=== PATIENT | female | born 1955 | race African-American/Black ===

== ENCOUNTER 2016-12-06 14:46 | Observation (INO) | payer OTHER ==
[2016-12-06 15:14] VITALS: BMI 31.8
[2016-12-06] MEDS ORDERED: OXYCODONE/APAP 5/325MG COMBO TABLET ONE (15:32)
[2016-12-06] MEDS ORDERED: ONDANSETRON *ODT* 4 MG TABLET ONE (15:33)
[2016-12-06] MEDS ORDERED: OXYCODONE/APAP 5/325MG COMBO TABLET PO ONE (15:42)
[2016-12-06] MEDS ORDERED: ONDANSETRON *ODT* 4 MG TABLET SL ONE (15:42)
--- NOTE | 2016-12-06 15:45 | PDOC ---
[id number] No Limitations - History of Present Illness Initial Comments: 12/06/16 15:46 The patient is a 61 year old female, with a significant past medical history of afib, diabetes, HTN, hypercholesterolemia, seizures, migraines, chronic back pain, who presents to the emergency department s/p syncopal episode at 11:00am today. She reports getting out of the shower feeling dizziness and nausea. She reports going back to the bathroom where she blacked out, waking up on the bathroom floor with her bathroom door broken. She has chief complaints of scalp , neck and upper back pain, suspecting she hit her head. She reports after falling she couldnt feel her legs, but was eventually able to ambulate a few minutes after the episode. She denies recent fever, chills, headache and dizziness. She denies recent vomit, diarrhea and constipation. Allergies: As per Nursing Notes. Past surgical history: Appendectomy and TKR (bilateral) Social history: Nonsmoker. PCP: . <Jer Rome - Last Filed: 12/06/16 15:48> <Fab Quinonez - Last Filed: 01/16/17 09:54> - General Chief Complaint: Injury Stated Complaint: FALL Time Seen by Provider: 12/06/16 14:53 Past History <Jer Rome - Last Filed: 12/06/16 15:48> - Past Medical History Cardiac Disorders: Yes (afib) Diabetes: Yes HTN: Yes Hypercholesterolemia: Yes Suicide Attempt (Hx): No Seizures: Yes - Surgical History Abdominal Surgery: Yes (ECTOPIC PREGNANY) Appendectomy: Yes Orthopedic Surgery: Yes (both knee replacement) - Immunization History Immunization Up to Date: Yes - Psycho/Social/Smoking Cessation Hx Anxiety: No Suicidal Ideation: No Smoking Status: No Smoking History: Never smoked Years of Tobacco Use: 10 Number of Cigarettes Smoked Daily: 0 Information on smoking cessation initiated: No Hx Alcohol Use: No Drug/Substance Use Hx: No Substance Use Type: None <Fab Quinonez - Last Filed: 01/16/17 09:54> - Past Medical History Allergies/Adverse Reactions: Allergies Allergy/AdvReac Type Severity Reaction Status Date / Time Iodinated Contrast Media - Allergy Verified 06/22/15 11:51 Oral and IV DYE Allergy Uncoded 06/22/15 10:22 Home Medications: Ambulatory Orders Amlodipine Besylate [Norvasc -] 5 mg PO DAILY 04/11/15 Ezetimibe [Zetia] 10 mg PO DAILY 04/11/15 Gabapentin [Neurontin] 800 mg PO TID 04/11/15 Hydrocodone/Acetaminophen [[place] 10-325 Tablet] 1 each PO DAILY PRN 04/11/15 Phenytoin Na Extended [Dilantin -] 100 mg PO TID 04/11/15 Losartan/Hydrochlorothiazide [Losartan-Hctz 100-25 mg Tablet] 1 each PO DAILY Morphine *Sr* [MS Contin -] 30 mg PO BID tablet.sa 04/15/15 Review of Systems - Review of Systems Able to Perform ROS?: Yes Comments:: 12/06/16 15:46 GENERAL/CONSTITUTIONAL: No fever or chills. No weakness. HEAD, EYES, EARS, NOSE AND THROAT: No change in vision. No ear pain or discharge. No sore throat. CARDIOVASCULAR: No chest pain or shortness of breath. RESPIRATORY: No cough, wheezing, or hemoptysis. GASTROINTESTINAL: No vomiting, diarrhea or constipation. GENITOURINARY: No dysuria, frequency, or change in urination. MUSCULOSKELETAL: Present: back and neck pain. No joint or muscle swelling or pain. SKIN: No rash NEUROLOGIC: Yes: dizziness. No headache, loss of consciousness, or change in strength/sensation. ENDOCRINE: No increased thirst. No abnormal weight change. HEMATOLOGIC/LYMPHATIC: No anemia, easy bleeding, or history of blood clots. ALLERGIC/IMMUNOLOGIC: No hives or skin allergy. <Jer Rome - Last Filed: 12/06/16 15:48> *Physical Exam - Vital Signs Last Vital Signs Temp Pulse Resp BP Pulse Ox 97.8 F 58 L 20 88/64 100 12/06/16 15:12 12/06/16 15:12 12/06/16 15:12 12/06/16 15:12 12/06/16 15:12 - Physical Exam Comments: 12/06/16 15:48 GENERAL: Awake, alert, and fully oriented, in no acute distress HEAD: No signs of trauma EYES: PERRLA, EOMI, sclera anicteric, conjunctiva clear ENT: Auricles normal inspection, hearing grossly normal, nares patent, oropharynx clear without exudates. Moist mucosa NECK: Tenderness to the upper back, high thoracic, lower cervical area and to the base of the skull. No midline bony tenderness.Normal ROM, supple, no lymphadenopathy, JVD, or masses LUNGS: Breath sounds equal, clear to auscultation bilaterally. No wheezes, and no crackles HEART: Regular rate and rhythm, normal S1 and S2, no murmurs, rubs or gallops ABDOMEN: Soft, nontender, normoactive bowel sounds. No guarding, no rebound. No masses EXTREMITIES: Normal range of motion, no edema. No clubbing or cyanosis. No cords, erythema, or tenderness NEUROLOGICAL: Cranial nerves II through XII grossly intact. Normal speech, normal gait SKIN: Warm, Dry, normal turgor, no rashes or lesions noted. <Jer Rome - Last Filed: 12/06/16 15:48> - Vital Signs Last Vital Signs Temp Pulse Resp BP Pulse Ox 97.8 F 58 L 20 88/64 100 12/06/16 15:12 12/06/16 15:12 12/06/16 15:12 12/06/16 15:12 12/06/16 15:12 <Fab Quinonez - Last Filed: 01/16/17 09:54> Heart Score/ECG Review - ECG Impressions Comment:: 12/06/16 15:47 Vent rate 52 bpm ND interval 166 ms QRS duration 82 ms Sinus bradycardia Possible Left atrial enlargement Septal infarct age undetermined Abnormal ECG. <Jer Rome - Last Filed: 12/06/16 15:48> ED Treatment Course - LABORATORY CBC & Chemistry Diagram: 12/08/16 06:10 12/08/16 06:10 - RADIOLOGY Radiology Studies Ordered: Category Date Time Status CERVICAL SPINE CT W/O CONTR [CT] Stat CT Scan 12/06/16 15:[address] WITHOUT CONTRAST [CT] Stat CT Scan 12/06/16 15:[address] W/O CONTRAST [CT] Stat CT Scan 12/06/16 15:31 Ordered CHEST X-RAY PORTABLE* [RAD] Stat Radiology 12/06/16 15:31 Ordered <Fab Quinonez - Last Filed: 01/16/17 09:54> *DC/Admit/Observation/Transfer - Attestations Scribe Attestion: 12/06/16 15:46 Documentation prepared by Jer Rome, acting as medical chief technician for Fab Quinonez DO. <Jer Rome - Last Filed: 12/06/16 15:48> - Attestations Physician Attestion: 12/06/16 15:45 I, Dr. Fab Quinonez, attest that this document has been prepared under my direction and personally reviewed by me in its entirety. I further attest, that it accurately reflects all work, treatment, procedures and medical decision -making performed by me. <Fab Quinonez - Last Filed: 01/16/17 09:54> Diagnosis at time of Disposition: Chest pain Syncope Qualifiers: Encounter type: initial encounter - Referrals
[2016-12-06 15:57] LABS: BASOPHIL 1.4 % (0-2.0); EOSINOPHIL 2.5 % (0-4.5); MCH 31.5 pg (25.7-33.7); MCHC 32.7 g/dl (32.0-36.0); MEAN CELL VOLUME 96.5 fl (80-96); MEAN PLT VOLUME 11.5 fl (7.5-11.1); NEUTROPHILS 73.9 % (42.8-82.8); PLATELET COUNT 229 K/MM3 (134-434); RDW 14.8 % (11.6-15.6); WHITE BLOOD COUNT 8.3 K/mm3 (4.0-10.0)
[2016-12-06 16:21] LABS: ALBUMIN 4.2 g/dl (3.4-5.0); BILIRUBIN,TOTAL 0.5 mg/dL (0.2-1.0); CREATININE 1.4 mg/dL (0.55-1.02); TOT PROT 7.8 g/dl (6.4-8.2)
[2016-12-06 16:22] LABS: INR 1.09 (0.82-1.09)
[2016-12-06 16:23] LABS: TROPONIN I 0.07 ng/ml (0.00-0.05)
--- NOTE | 2016-12-06 19:44 | PDOC ---
*Physical Exam - Vital Signs Last Vital Signs Temp Pulse Resp BP Pulse Ox 98.3 F 72 20 130/80 98 12/06/16 18:41 12/06/16 18:41 12/06/16 18:41 12/06/16 18:41 12/06/16 18:41 ED Treatment Course - LABORATORY CBC & Chemistry Diagram: 12/06/16 15:35 12/06/16 15:35 - ADDITIONAL ORDERS Additional order review: Laboratory Results 12/06/16 12/06/16 12/06/16 15:35 15:35 15:35 INR 1.09 Sodium 141 Potassium 3.7 Chloride 104 Carbon Dioxide 27 Anion Gap 10 BUN 13 D Creatinine 1.4 H D Creat Clearance w eGFR 38.10 Random Glucose 117 H Calcium 10.0 Total Bilirubin 0.5 D AST 9 L D ALT 18 D Alkaline Phosphatase 131 H Creatine Kinase 68 Troponin I 0.07 H Total Protein 7.8 Albumin 4.2 Alcohol, Quantitative < 5.0 12/06/16 15:35 RBC 4.35 D MCV 96.5 H MCHC 32.7 RDW 14.8 D MPV 11.5 H Neutrophils % 73.9 D Lymphocytes % 14.0 D Monocytes % 8.2 Eosinophils % 2.5 Basophils % 1.4 - Medications Given in the ED: ED Medications Discontinued Medications Generic Name Dose Route Start Last Admin Trade Name Karl PRN Reason Stop Dose Admin Ondansetron HCl 4 mg 12/06/16 15:42 12/06/16 15:53 Zofran Odt - SL 12/06/16 15:43 4 mg ONCE ONE Administration Oxycodone/Acetaminophen 1 combo 12/06/16 15:42 12/06/16 15:53 Percocet 5/325 - PO 12/06/16 15:43 1 combo ONCE ONE Administration *DC/Admit/Observation/Transfer Diagnosis at time of Disposition: Chest pain Syncope Qualifiers: Encounter type: initial encounter - Discharge Dispostion Condition at time of disposition: Stable Admit: Yes - Referrals Referrals: Yariel Springer [Primary Care Provider] - - Patient Instructions - Post Discharge Activity
[2016-12-06 21:07] LABS: URINE APPEARANCE SLCLOUDY; URINE BILIRUBIN NEGATIVE (NEGATIVE); URINE BLOOD NEGATIVE (NEGATIVE); URINE COLOR YELLOW; URINE GLUCOSE (UA) NEGATIVE (NEGATIVE); URINE KETONE NEGATIVE (NEGATIVE); URINE NITRITE NEGATIVE (NEGATIVE); URINE UROBILINOGEN NEGATIVE E.U./dl (0.2-1.0)
[2016-12-06 21:23] LABS: URINE MARIJUANA THC NEGATIVE ng/ml (CUTOFF=50)
[2016-12-06 21:45] LABS: URINE LEUK ESTERASE TRACE (NEGATIVE); URINE PROTEIN 1+ (NEGATIVE)
[2016-12-06 21:47] LABS: URINE HYALINE CAST 59 /lpf; URINE MUCUS FEW; URINE RBC 2 /hpf (0-3); URINE WBC 9 /hpf (3-5)
[2016-12-06] MEDS ORDERED: PATIENT'S OWN MEDICATION (NON-FORMULARY) (Gabapentin [Neurontin] 800 MG) PO SCH (22:00)
[2016-12-06] MEDS ORDERED: morphine SO4 SUSTAINED ACTING 15 MG TABLET.SA ONE (22:05)
[2016-12-06] MEDS ORDERED: HEPARIN NA (PORCINE) 5,000 UNITS/ML 1ML VIAL ONE (22:06)
[2016-12-06] MEDS ORDERED: PHENYTOIN NA EXTENDED 100 MG CAPSULE (FP) ONE (22:06)
[2016-12-06] MEDS: HEPARIN NA (PORCINE) 5,000 UNITS/ML 1ML VIAL SQ SCH (22:13)
[2016-12-06] MEDS: PHENYTOIN NA EXTENDED 100 MG CAPSULE (FP) PO SCH (22:13)
[2016-12-06] MEDS: morphine SO4 SUSTAINED ACTING 30 MG TABLET.SA PO SCH (22:13)
[2016-12-06] MEDS: GABAPENTIN 400 MG CAPSULE (FP) PO SCH (22:49)
[2016-12-07] MEDS ORDERED: CYCLOBENZAPRINE HCL 10 MG TABLET (FP) ONE (02:00)
[2016-12-07] MEDS: CYCLOBENZAPRINE HCL 10 MG TABLET (FP) PO PRN (02:03)
[2016-12-07 03:02] LABS: TROPONIN I 0.02 ng/ml (0.00-0.05)
[2016-12-07] MEDS ORDERED: PHENYTOIN NA EXTENDED 100 MG CAPSULE (FP) ONE (06:28)
[2016-12-07] MEDS: PHENYTOIN NA EXTENDED 100 MG CAPSULE (FP) PO SCH ×2 (06:36→21:32)
[2016-12-07] MEDS: GABAPENTIN 400 MG CAPSULE (FP) PO SCH ×2 (06:36→21:32)
[2016-12-07] MEDS ORDERED: EZETIMIBE 10 MG TABLET (FP) PO SCH (10:00)
[2016-12-07] MEDS ORDERED: PATIENT'S OWN MEDICATION (NON-FORMULARY) (Losartan/Hydrochlorothiazide [Losartan-Hctz 100- PO SCH (10:00)
[2016-12-07] MEDS ORDERED: LOSARTAN 50MG/HCTZ 12.5MG 1 TAB (FP) PO SCH (10:00)
[2016-12-07] MEDS: amLODIPine BESYLATE 5 MG TABLET (FP) PO SCH (10:00)
--- NOTE | 2016-12-07 10:07 | CONSULT ---
Consult Consult Specialty:: Neurology - History of Present Illness History of Present Illness: Chart review for patient evaluation pending safe road condition travel noted the patient to be a 12/06/16 15:46 61 year old female, with acute LOC. She has a significant past medical history of afib, diabetes, HTN, hypercholesterolemia, seizures, migraines, chronic back pain. Per the medical record she had reported passing out following a shower, finding herself on the floor with initial leg weakness and subsequently able to ambulate. She reported associated scalp, neck and upper back pain and was evaluated accordingly. Neurological consultation requested for evaluation of syncope. Head CT negative. 12/07/16 1015 EST telephone discussion with treating ED attending who noted the patient reporting lightheadedness but no focal neurological deficits. Per nurse patient complaining of usual back pain (CT of head and Cervical and thoracic spine unremarkable) but usual narcotic pain medication held with systolic pressure in 90's. Pt admitted for evaluation of [place] with 2nd regimen of cardiac enzymes normal, and first slightly elevated. Discussed case with ED physician with neurological follow pending weather conditions. - Alcohol/Substance Use Hx Alcohol Use: No - Smoking History Smoking history: Never smoked Aproximately how many cigarettes per day: 0 Home Medications - Allergies Allergies/Adverse Reactions: Allergies Allergy/AdvReac Type Severity Reaction Status Date / Time Iodinated Contrast Media - Allergy Verified 06/22/15 11:51 Oral and IV DYE Allergy Uncoded 06/22/15 10:22 - Home Medications Home Medications: Ambulatory Orders Amlodipine Besylate [Norvasc -] 5 mg PO DAILY 04/11/15 Ezetimibe [Zetia] 10 mg PO DAILY 04/11/15 Gabapentin [Neurontin] 800 mg PO TID 04/11/15 Hydrocodone/Acetaminophen [[place] 10-325 Tablet] 1 each PO DAILY PRN 04/11/15 Phenytoin Na Extended [Dilantin -] 100 mg PO TID 04/11/15 Zolpidem Tartrate [Ambien] 10 mg PO HS PRN 04/11/15 Acetaminophen/Caffeine/Butalb [Fioricet -] 1 tab PO Q4H PRN 04/14/15 Losartan/Hydrochlorothiazide [Losartan-Hctz 100-25 mg Tablet] 1 each PO DAILY Morphine *Sr* [MS Contin -] 30 mg PO BID tablet.sa 04/15/15 Cephalexin Monohydrate [Keflex -] 500 mg PO Q6H #28 capsule 06/06/15 Cyclobenzaprine HCl [Flexeril -] 5 mg PO TID PRN #30 tablet 06/22/15 Physical Exam Vital Signs: Vital Signs Temperature 98.6 F 12/07/16 07:38 Pulse Rate 52 L 12/07/16 07:38 Respiratory Rate 14 12/07/16 07:38 Blood Pressure 84/50 12/07/16 07:38 O2 Sat by Pulse Oximetry (%) 96 12/07/16 07:38 Assessment/Plan Acute LOC with fall admitted for evaluation of syncope with likely mild head trauma with LOC. Neurological follow up 12/08/15 with telephone follow with ED physician noting normal neuro exam with neg head and cervical/thoracic spine MRI
[2016-12-07 10:15] LABS: BASOPHIL 1.5 % (0-2.0); EOSINOPHIL 4.2 % (0-4.5); MCH 31.8 pg (25.7-33.7); MCHC 32.8 g/dl (32.0-36.0); MEAN PLT VOLUME 10.6 fl (7.5-11.1); NEUTROPHILS 51.9 % (42.8-82.8); PLATELET COUNT 193 K/MM3 (134-434); RDW 14.8 % (11.6-15.6); WHITE BLOOD COUNT 6.5 K/mm3 (4.0-10.0)
[2016-12-07 10:34] LABS: ALBUMIN 3.7 g/dl (3.4-5.0); BILIRUBIN,TOTAL 0.4 mg/dL (0.2-1.0); CALCIUM 8.9 mg/dL (8.5-10.1); CREATININE 2.1 mg/dL (0.55-1.02); TOT PROT 6.7 g/dl (6.4-8.2)
[2016-12-07 10:35] LABS: TROPONIN I 0.02 ng/ml (0.00-0.05)
--- NOTE | 2016-12-07 11:01 | CON.CARD ---
Cardiology Consult (text) - Consultation Consultation Note: Spoke with ER attending (Dr. Canseco) who was taking care of patient before being admitted to [facility] service. Dr. Canseco spoke with patient who states that she sees a female doctor in [facility]'s office. Will notify Dr. Steele to change consult to his group.
--- NOTE | 2016-12-07 11:15 | EKG ---
Test Reason : Blood Pressure : / mmHG Vent. Rate : 052 BPM Atrial Rate : 052 BPM P-R Int : 166 ms QRS Dur : 082 ms QT Int : 546 ms P-R-T Axes : 023 042 011 degrees QTc Int : 507 ms SINUS BRADYCARDIA POSSIBLE LEFT ATRIAL ENLARGEMENT Confirmed by MELL DUARTE MD ([id number]) on 12/07/2016 11:15:16 AM Referred By: Confirmed By:MELL DUARTE MD
--- NOTE | 2016-12-07 12:24 | EKG ---
Test Reason : Blood Pressure : / mmHG Vent. Rate : 051 BPM Atrial Rate : 051 BPM P-R Int : 168 ms QRS Dur : 084 ms QT Int : 522 ms P-R-T Axes : 032 063 025 degrees QTc Int : 481 ms SINUS BRADYCARDIA OTHERWISE NORMAL ECG WHEN COMPARED WITH ECG OF 06-DEC-2016 15:09, CRITERIA FOR SEPTAL INFARCT ARE NO LONGER PRESENT T WAVE INVERSION NO LONGER EVIDENT IN ANTERIOR LEADS Confirmed by FELICIA SKINNER, MELL ([id number]) on 12/07/2016 12:24:10 PM Referred By: LUCIAN MONTES Confirmed By:MELL DUARTE MD
[2016-12-07] MEDS ORDERED: OXYCODONE/APAP 5/325MG COMBO TABLET PO ONE (14:12)
[2016-12-07] MEDS ORDERED: OXYCODONE/APAP 5/325MG COMBO TABLET ONE (14:14)
--- NOTE | 2016-12-07 18:37 | HP ---
Admitting History and Physical - Primary Care Physician PCP: Leela Brennan - Admission Chief Complaint: SYNCOPE LOC History of Present Illness: The patient is a 61 year old female, with a significant past medical history of afib, diabetes, HTN, hypercholesterolemia, seizures, migraines, chronic back pain, who presents to the emergency department s/p syncopal episode at 11:00am today. She reports getting out of the shower feeling dizziness and nausea. She reports going back to the bathroom where she blacked out, waking up on the bathroom floor with her bathroom door broken. She has chief complaints of scalp , neck and upper back pain, suspecting she hit her head. She reports after falling she couldnt feel her legs, but was eventually able to ambulate a few minutes after the episode. She denies recent fever, chills, headache and dizziness. She denies recent vomit, diarrhea and constipation. History Source: Patient - Smoking History Smoking history: Never smoked Aproximately how many cigarettes per day: 0 - Alcohol/Substance Use Hx Alcohol Use: No Home Medications - Allergies Allergies/Adverse Reactions: Allergies Allergy/AdvReac Type Severity Reaction Status Date / Time Iodinated Contrast Media - Allergy Verified 06/22/15 11:51 Oral and IV DYE Allergy Uncoded 06/22/15 10:22 - Home Medications Home Medications: Ambulatory Orders Amlodipine Besylate [Norvasc -] 5 mg PO DAILY 04/11/15 Ezetimibe [Zetia] 10 mg PO DAILY 04/11/15 Gabapentin [Neurontin] 800 mg PO TID 04/11/15 Hydrocodone/Acetaminophen [[place] 10-325 Tablet] 1 each PO DAILY PRN 04/11/15 Phenytoin Na Extended [Dilantin -] 100 mg PO TID 04/11/15 Zolpidem Tartrate [Ambien] 10 mg PO HS PRN 04/11/15 Acetaminophen/Caffeine/Butalb [Fioricet -] 1 tab PO Q4H PRN 04/14/15 Losartan/Hydrochlorothiazide [Losartan-Hctz 100-25 mg Tablet] 1 each PO DAILY Morphine *Sr* [MS Contin -] 30 mg PO BID tablet.sa 04/15/15 Cephalexin Monohydrate [Keflex -] 500 mg PO Q6H #28 capsule 06/06/15 Cyclobenzaprine HCl [Flexeril -] 5 mg PO TID PRN #30 tablet 06/22/15 Review of Systems Findings/Remarks: ASLEEP,COMFORTABLE - Review of Systems Constitutional: reports: No Symptoms Eyes: reports: No Symptoms HENT: reports: No Symptoms Neck: reports: No Symptoms Cardiovascular: reports: No Symptoms Respiratory: reports: No Symptoms Musculoskeletal: reports: No Symptoms Integumentary: reports: No Symptoms Neurological: reports: Syncope, Weakness Endocrine: reports: No Symptoms Physical Examination Vital Signs: Vital Signs Temperature 0 F L 12/07/16 17:59 Pulse Rate 52 L 12/07/16 17:59 Respiratory Rate 16 12/07/16 17:59 Blood Pressure 96/52 12/07/16 17:59 O2 Sat by Pulse Oximetry (%) 95 12/07/16 17:59 Findings/Remarks: ASLEEP/COMFORTABLE Constitutional: Yes: Mild Distress Eyes: Yes: WNL HENT: Yes: WNL Neck: Yes: WNL Cardiovascular: Yes: WNL Respiratory: Yes: WNL Gastrointestinal: Yes: WNL Renal/: Yes: WNL Musculoskeletal: Yes: WNL Extremities: Yes: WNL Edema: Yes Edema: LLE: Trace, RLE: Trace Peripheral Pulses WNL: Yes Integumentary: Yes: WNL Wound/Incision: Yes: Clean/Dry Neurological: Yes: WNL ...Motor Strength: WNL Psychiatric: Yes: WNL Labs: CBC, BMP 12/07/16 10:05 12/07/16 10:05 Imaging - Results Cat Scan: Report Reviewed Assessment/Plan SYNCOPE WORKUP SEIZURE WORKUP NEUROLOGY/CARDIOLOGY WORKUP IN PROGRESS ECHO 2D NORMAL CAROTID DOPPLER NORMAL NO SIGNIFICANT TELEMETRY ALARMS
[2016-12-07] MEDS ORDERED: SODIUM CHLORIDE 1,000 ML IV SCH (18:45)
[2016-12-07] MEDS ORDERED: morphine SO4 SUSTAINED ACTING 15 MG TABLET.SA ONE (21:22)
[2016-12-07] MEDS: morphine SO4 SUSTAINED ACTING 30 MG TABLET.SA PO SCH (21:30)
[2016-12-07] MEDS: HEPARIN NA (PORCINE) 5,000 UNITS/ML 1ML VIAL SQ SCH (21:31)
[2016-12-07] MEDS ORDERED: ZOLPIDEM TARTRATE 5 MG TABLET PO PRN (21:55)
[2016-12-08] MEDS ORDERED: ZOLPIDEM TARTRATE 5 MG TABLET ONE (00:47)
[2016-12-08 05:19] VITALS: TEMP 97.8
[2016-12-08 06:58] LABS: MCH 32.3 pg (25.7-33.7); MCHC 33.3 g/dl (32.0-36.0); MEAN PLT VOLUME 11.4 fl (7.5-11.1); PLATELET COUNT 174 K/MM3 (134-434); RDW 14.9 % (11.6-15.6); WHITE BLOOD COUNT 6.6 K/mm3 (4.0-10.0)
[2016-12-08 07:35] LABS: CREATININE 1.1 mg/dL (0.55-1.02)
[2016-12-08] MEDS: PHENYTOIN NA EXTENDED 100 MG CAPSULE (FP) PO SCH ×2 (07:56→14:31)
[2016-12-08] MEDS: GABAPENTIN 400 MG CAPSULE (FP) PO SCH ×2 (07:56→14:31)
[2016-12-08] MEDS ORDERED: morphine SO4 SUSTAINED ACTING 15 MG TABLET.SA ONE (09:37)
--- NOTE | 2016-12-08 09:41 | CON.CARD ---
Consult Consult Specialty:: Cardiology - History of Present Illness History of Present Illness: 61 year old woman with a history of HTN, HLD, seizure disorder, non-obstructive CAD with mLAD myocardial bridge, prior syncopal episodes thought to be secondary to seizures, admitted with a syncopal event. Pt. states that yesterday while getting ready to go out of her house she walked to the bathroom and that is the last thing she remembers followed by being on the ground with profound generalized weakness and inability to get up. denies knowledge of any preceding symptoms but states that she felt dizzy and very weak when she woke up. denies chest pain at home but did have substernal chest discomfort while in the ER yesterday after drinking some juice. denies palpitations. no sob. no pnd , orthopnea, or LE edema. - History Source History Provided By: Patient, Medical Record Limitations to Obtaining History: No Limitations - Past Medical History YARDAGE ESTIMATOR: Yes: Seizure, Syncope Cardio/Vascular: Yes: CAD, HTN, Hyperlipdemia - Alcohol/Substance Use Hx Alcohol Use: No - Smoking History Smoking history: Never smoked Aproximately how many cigarettes per day: 0 - Social History ADL: Independent History of Recent Travel: No Home Medications - Allergies Allergies/Adverse Reactions: Allergies Allergy/AdvReac Type Severity Reaction Status Date / Time Iodinated Contrast Media - Allergy Verified 06/22/15 11:51 Oral and IV DYE Allergy Uncoded 06/22/15 10:22 - Home Medications Home Medications: Ambulatory Orders Amlodipine Besylate [Norvasc -] 5 mg PO DAILY 04/11/15 Ezetimibe [Zetia] 10 mg PO DAILY 04/11/15 Gabapentin [Neurontin] 800 mg PO TID 04/11/15 Hydrocodone/Acetaminophen [[place] 10-325 Tablet] 1 each PO DAILY PRN 04/11/15 Phenytoin Na Extended [Dilantin -] 100 mg PO TID 04/11/15 Zolpidem Tartrate [Ambien] 10 mg PO HS PRN 04/11/15 Acetaminophen/Caffeine/Butalb [Fioricet -] 1 tab PO Q4H PRN 04/14/15 Losartan/Hydrochlorothiazide [Losartan-Hctz 100-25 mg Tablet] 1 each PO DAILY Morphine *Sr* [MS Contin -] 30 mg PO BID tablet.sa 04/15/15 Cephalexin Monohydrate [Keflex -] 500 mg PO Q6H #28 capsule 06/06/15 Cyclobenzaprine HCl [Flexeril -] 5 mg PO TID PRN #30 tablet 06/22/15 Family Disease History - Family Disease History Family History: Denies Review of Systems - Review of Systems Constitutional: reports: Weakness. denies: No Symptoms, Chills, Diaphoresis, Fever, Lethargy, Loss of Appetite, Malaise, Night Sweats, Unintentional Wgt. Loss, Other Eyes: denies: No Symptoms, Blind Spots, Blurred Vision, Double Vision, Eye Pain , Floaters, Photophobia, Recent Change in Vision, Other HENT: denies: No Symptoms, Difficult Swallowing, Ear Discharge, Ear Pain, Epistaxis, Gingival Bleeding, Hearing Loss, Mouth Swelling, Nasal Congestion, Ocular Prosthesis, Throat Pain, Toothache, Ringing in Ears, Other Neck: denies: No Symptoms, Decreased ROM, Lumps, Pain on Movement, Stiffness, Swollen Glands, Tenderness, Other Cardiovascular: reports: Chest Pain. denies: No Symptoms, Edema, Palpitations, Shortness of Breath, Other Respiratory: denies: No Symptoms, Cough, Exercise Intolerance, Hemoptysis, Orthopnea, PND, Snoring, SOB, SOB on Exertion, Wheezing, Other Gastrointestinal: denies: No Symptoms, Abdominal Pain, Bloating, Constipation, Diarrhea, Dysphagia, Indigestion, Melena, Nausea, Rectal Bleeding, Vomiting, Vomiting Blood, Other Genitourinary: denies: No Symptoms, Burning, Discharge, Dysuria, Flank Pain, Frequency, Hematuria, Incontinence, Lesions, Menses, Pain, Testicular Mass, Testicular Pain, Testicular Swelling, Urgency, Vaginal Bleeding, Other Breasts: denies: No Symptoms Reported, See HPI, Breast Implants, Discharge from Nipple, Lumps, Pain, Skin Changes, Other Musculoskeletal: denies: No Symptoms, Back Pain, Crepitus, Decreased ROM, Extremity Pain, Joint Pain, Joint Swelling, Muscle Pain, Muscle Cramps, Muscle Weakness, Other Integumentary: denies: No Symptoms, Blister, Bruising, Change in Color, Eczema, Erythema, Incision, Lesions, Lump, Pallor, Pruritis, Rash, Wound, Other Neurological: reports: Dizziness, Seizure, Syncope, Weakness. denies: No Symptoms, Change in LOC, Change in Speech, Confusion, Headache, Incoordination, Numbness, Parasthesia, Pre-Existing Deficit, Tremors, Unsteady Gait, Other Endocrine: denies: No Symptoms, Excessive Sweating, Flushing, Increased Hunger, Increased Thirst, Intolerance to Cold, Intolerance to Heat, Unexplained Weight Gain, Unexplained Weight Loss, Other Hematology/Lymphatic: denies: No Symptoms, Easily Bruised, Excessive Bleeding, Swollen Glands, Other Psychiatric: denies: No Symptoms, Altered Sleep Pattern, Anxiety, Depression, Hallucinations, Panic, Paranoia, Suicidal, Other - Risk Factors Known Risk Factors: Yes: Hypercholesterolemia, Hypertension Vital Signs: Vital Signs Temperature 97.8 F 12/08/16 05:00 Pulse Rate 57 L 12/08/16 05:00 Respiratory Rate 20 12/08/16 05:00 Blood Pressure 136/78 12/08/16 05:00 O2 Sat by Pulse Oximetry (%) 95 12/07/16 17:59 Constitutional: Yes: Well Nourished, No Distress, Calm Eyes: Yes: WNL, Conjunctiva Clear, EOM Intact HENT: Yes: WNL, Atraumatic, Normocephalic Neck: Yes: WNL, Supple, Trachea Midline Respiratory: Yes: WNL, Regular, CTA Bilaterally. No: Rales, Rhonchi, Wheezes Gastrointestinal: Yes: WNL, Normal Bowel Sounds, Soft. No: Distention, Tenderness Renal/: Yes: WNL Cardiovascular: Yes: Regular Rate and Rhythm. No: Bradycardia, Tachycardia, Pulse Irregular, Gallop, Rub, Varicosities JVD: No Carotid Bruit: No PMI: Non-Displaced Heart Sounds: Yes: S1, S2. No: Split S2, S3, S4, Clicks, Gallop, Rub, Bruit Murmur: Yes: Systolic Murmur, Grade 2. No: Diastolic Murmur Musculoskeletal: Yes: Back Pain Extremities: Yes: WNL Edema: No Peripheral Pulses WNL: Yes Peripheral Pulses: 2+ Left Doralis Pedis, 2+ Right Dorsalis Pedis Integumentary: Yes: WNL Neurological: Yes: Alert, Oriented Psychiatric: Yes: Alert, Oriented - Other Data Labs, Other Data: CBC, BMP 12/08/16 06:10 12/08/16 06:10 INR, PTT INR 1.09 (0.82-1.09) 12/06/16 15:35 ekg-sinus bradycardia 52bpm, septal infarct, poor r progression, T inversion V2 , III, no sig change from prior ekgs as per outpatient records Echo: Report Reviewed Prior Cardiac Procedures: Cardiac Catheterization Imaging - Results Chest X-ray: Report Reviewed, Image Reviewed EKG: Report Reviewed, Image Reviewed Other: Report Reviewed, Image Reviewed (tele-no sig arrhythmia reported) Problem List - Problems (1) Chest pain Code(s): R07.9 - CHEST PAIN, UNSPECIFIED (2) Syncope Code(s): R55 - SYNCOPE AND COLLAPSE Qualifiers: Encounter type: initial encounter Assessment/Plan 61 year old woman with a history of HTN, HLD, seizure disorder, non-obstructive CAD with mLAD myocardial bridge, prior syncopal episodes thought to be secondary to seizures, admitted with a syncopal event. Pt. states that yesterday while getting ready to go out of her house she walked to the bathroom and that is the last thing she remembers followed by being on the ground with profound generalized weakness and inability to get up. denies knowledge of any preceding symptoms but states that she felt dizzy and very weak when she woke up. denies chest pain at home but did have substernal chest discomfort while in the ER yesterday after drinking some juice. Syncope-uncertain etiology, possible seizure, possible orthostatic hypotension -BP low here, evidence of intravascular depletion on labs -hold anti-htn meds -IVF hydration as needed -check orthostatic BP -carotid doppler showed mild plaque with no sig stenosis -echo showed normal LV and RV function, mild tr, no sig abnl -Neuro consult to evaluate for possible seizures -telemetry monitoring during admission and plan for extended outpatient event monitor vs consideration for loop recorder implantation Chest pain-atypical, h/o mild non-obstructive CAD -cardiac cath 02/2011 showed nl RCA, nl LM, nl LCx, mild LAD myocardial bridge, no , elevated LVEDP, ef 60% -ETT 06/2016 showed no ischemia -Nuclear stress 07/2013 showed no ischemia -cardiac enzymes wnl here -no additional inpatient ischemic work up needed at this point
[2016-12-08] MEDS: CYCLOBENZAPRINE HCL 10 MG TABLET (FP) PO PRN (09:56)
[2016-12-08] MEDS: morphine SO4 SUSTAINED ACTING 30 MG TABLET.SA PO SCH (09:57)
[2016-12-08] MEDS: HEPARIN NA (PORCINE) 5,000 UNITS/ML 1ML VIAL SQ SCH (09:57)
--- NOTE | 2016-12-08 11:43 | CONSULT ---
Consult - History of Present Illness History of Present Illness: Chart review fo 61 year old female, with acute LOC. She has a significant past medical history of afib, diabetes, HTN, hypercholesterolemia, seizures, migraines, chronic back pain. Per the medical record she had reported passing out following a shower, finding herself on the floor with initial leg weakness and subsequently able to ambulate. The patient tells me she had showered earlier and was actually sitting watching TV when she decide to get dress to go out to run errands. She stood up, suddenly felt light headed, continued to walk to the bathroom, with severe spinning sensation then passed out. She found herself on the floor sometime later and was able to ambulate but vertigo persisted. The symptoms continues but has improved. She has no hearing loss or tinnitus, although at times she will experience short periods of tinnitus. She had no headache with the episode with no complaint of headache at this time. CT negative. 12/07/16 1015 EST telephone discussion with treating ED attending who noted the patient reporting lightheadedness but no focal neurological deficits. Per nurse patient complaining of usual back pain (CT of head and Cervical and thoracic spine unremarkable) but usual narcotic pain medication held with systolic pressure in 90's. Pt admitted for evaluation of RI with 2nd regimen of cardiac enzymes normal, and first slightly elevated. 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, Syncope Cardio/Vascular: Yes: CAD, HTN, Hyperlipdemia - Alcohol/Substance Use Hx Alcohol Use: No - Smoking History Smoking history: Never smoked Aproximately how many cigarettes per day: 0 - Social History ADL: Independent History of Recent Travel: No Home Medications - Allergies Allergies/Adverse Reactions: Allergies Allergy/AdvReac Type Severity Reaction Status Date / Time Iodinated Contrast Media - Allergy Verified 06/22/15 11:51 Oral and IV DYE Allergy Uncoded 06/22/15 10:22 - Home Medications Home Medications: Ambulatory Orders Amlodipine Besylate [Norvasc -] 5 mg PO DAILY 04/11/15 Ezetimibe [Zetia] 10 mg PO DAILY 04/11/15 Gabapentin [Neurontin] 800 mg PO TID 04/11/15 Hydrocodone/Acetaminophen [[place] 10-325 Tablet] 1 each PO DAILY PRN 04/11/15 Phenytoin Na Extended [Dilantin -] 100 mg PO TID 04/11/15 Zolpidem Tartrate [Ambien] 10 mg PO HS PRN 04/11/15 Acetaminophen/Caffeine/Butalb [Fioricet -] 1 tab PO Q4H PRN 04/14/15 Losartan/Hydrochlorothiazide [Losartan-Hctz 100-25 mg Tablet] 1 each PO DAILY Morphine *Sr* [MS Contin -] 30 mg PO BID tablet.sa 04/15/15 Cephalexin Monohydrate [Keflex -] 500 mg PO Q6H #28 capsule 06/06/15 Cyclobenzaprine HCl [Flexeril -] 5 mg PO TID PRN #30 tablet 06/22/15 Physical Exam Vital Signs: Vital Signs Temperature 97.8 F 12/08/16 05:00 Pulse Rate 79 12/08/16 10:00 Respiratory Rate 18 12/08/16 10:00 Blood Pressure 123/66 12/08/16 10:00 O2 Sat by Pulse Oximetry (%) 100 12/08/16 10:00 Constitutional: Yes: Well Nourished, No Distress Eyes: Yes: EOM Intact, PERRL. No: Diplopia, Ptosis HENT: Yes: Atraumatic, Normocephalic Neurological: Yes: Alert, Oriented, Cran Nerves II-XII Intact. No: Aphasia, Ataxia, Dysarthria, Facial Droop, Numbness, Seizure, Tremors (Motor 5/5 ms with normal tone. EOM full with lateral nystagmus at extreme gaze (on dilantin) senosry intact to LT and vibraiton DTR 1/4 with downgoing plantar responses.), Weakness Labs: CBC, BMP 12/08/16 06:10 12/08/16 06:10 Imaging - Results MRI: Pending Assessment/Plan Impression: likely acute vertigo complicated by postural hypotension upon standing with limited fluid intake, however with CVD risk factor for SMD from chronic hypertension will need to exlcuded brainstem ischemia Defer stroke prevention with APM or AC dependent of patient's co-morbid cardiac and vascular illness and stroke risks Stroke education addressed at length with reference to weight control, reduced carb intake, adequate fluid intake and aggressive prevention of stroke due to hyperlipidemia and HTN May need outpatient ENT evaluation of peripheral vertigo.
[2016-12-08] MEDS: amLODIPine BESYLATE 5 MG TABLET (FP) PO SCH (12:00)
--- NOTE | 2016-12-08 13:58 | DS ---
Physical Examination Vital Signs: Vital Signs Temperature 97.8 F 12/08/16 05:00 Pulse Rate 79 12/08/16 10:00 Respiratory Rate 18 12/08/16 10:00 Blood Pressure 123/66 12/08/16 10:00 O2 Sat by Pulse Oximetry (%) 100 12/08/16 10:00 Constitutional: Yes: No Distress Eyes: Yes: WNL HENT: Yes: WNL Neck: Yes: WNL Cardiovascular: Yes: WNL Respiratory: Yes: WNL Gastrointestinal: Yes: WNL Musculoskeletal: Yes: Back Pain Extremities: Yes: WNL Edema: No Peripheral Pulses WNL: Yes Integumentary: Yes: WNL Wound/Incision: Yes: Clean/Dry Neurological: Yes: WNL ...Motor Strength: LLE, RLE Psychiatric: Yes: WNL Labs: CBC, BMP 12/08/16 06:10 12/08/16 06:10 Discharge Summary Reason For Visit: SYNCOPE Current Active Problems Chest pain (Acute) Syncope (Acute) Procedures: Principal: ct scan Other Procedures: echo/carotid Hospital Course: observation status on telemetry for syncope? vs vertigo, likely vertigo. f/u as out patient with neurology and cardiology. - Instructions Diet, Activity, Other Instructions: low salt cardio and neuro follow up in 1 week Referrals: Yariel Springer [Primary Care Provider] - Disposition: HOME - Home Medications Comprehensive Discharge Medication List: Ambulatory Orders Amlodipine Besylate [Norvasc -] 5 mg PO DAILY 04/11/15 Ezetimibe [Zetia] 10 mg PO DAILY 04/11/15 Gabapentin [Neurontin] 800 mg PO TID 04/11/15 Hydrocodone/Acetaminophen [[place] 10-325 Tablet] 1 each PO DAILY PRN 04/11/15 Phenytoin Na Extended [Dilantin -] 100 mg PO TID 04/11/15 Losartan/Hydrochlorothiazide [Losartan-Hctz 100-25 mg Tablet] 1 each PO DAILY Morphine *Sr* [MS Contin -] 30 mg PO BID tablet.sa 04/15/15
[2016-12-08 16:04] VITALS: BP 124/60; PULSE 78
== END 2016-12-08 16:20 | disposition home or self-care (01) ==
LOC: JER 14:46 → JERBED 19:44 → UNDOADMIN 19:44 → INTOOBSV 12-07 20:53 → JERBED 12-07 20:53
PROVIDERS: ADMIT Family Medicine; ATTEND Family Medicine
DX: R55 Syncope and collapse (principal); I48.91 Unspecified atrial fibrillation; I10 Essential (primary) hypertension; E78.00 Pure hypercholesterolemia, unspecified; E11.9 Type 2 diabetes mellitus without complications; G43.809 Other migraine, not intractable, without status migrainosus; M54.89 Other dorsalgia; G40.802 Other epilepsy, not intractable, without status epilepticus; I25.10 Atherosclerotic heart disease of native coronary artery without angina pectoris; Z96.653 Presence of artificial knee joint, bilateral
CPT/HCPCS: 36415; 70450-TC; 71010-TC; 72125-TC; 72128-TC; 80048; 80053; 80061; 80307; 81003; 81015; 82550; 83036; 83721; 84484; 85025; 85027; 85610; 93005; 93010; 93306-TC; 93880-TC; 99285-25; G0378; J1644

== ENCOUNTER 2017-03-21 06:53 | Inpatient (IN) | payer OTHER ==
--- NOTE | 2017-03-21 08:05 | PDOC ---
History of Present Illness - General Chief Complaint: Rectal Bleed Stated Complaint: RECTAL BLEED Time Seen by Provider: 03/21/17 07:14 History Source: Patient Exam Limitations: No Limitations - History of Present Illness Initial Comments: 61 y/o F w/PMH of afib (on aspirin only, states she was non-compliant with coumadin and is only taking asa), diabetes, HTN, hypercholesterolemia, seizures , migraines, chronic back pain presents to ER with bright red blood per rectum. Pt states she noticed bright red blood upon wiping beginning yesterday but no blood in toilet or on stool. She also has pain with defecation. She states this is the first time this has occurred. She has been feeling constipated lately and stool has been smaller in size lately. She had some nausea 2 days ago but no vomiting and does not have nausea at this time. She is also states that since noticing blood in the stool she has become anxious and has been having a lot of difficulty sitting still. She states she has some lower abdominal pain with no radiation. She states she also has a rash on R thigh which is new at this time. She also c/o some difficulty in breathing due to feeling anxious and as if her asthma is worsening. She denies fevers, chills, diarrhea, chest pain, light-headedness, dizziness, palpitations, dysuria, peripheral swelling. She denies recent travel history, sick contacts. She is a former smoker (smoked as a teen), has not drank alcohol since her 20s, and denies any drug use since her 20s. Past History - Travel Traveled outside of the country in the last 30 days: No - Past Medical History Allergies/Adverse Reactions: Allergies Allergy/AdvReac Type Severity Reaction Status Date / Time Iodinated Contrast Media - Allergy Verified 03/21/17 07:08 Oral and IV DYE Allergy Uncoded 03/21/17 07:08 Home Medications: Ambulatory Orders Amlodipine Besylate [Norvasc -] 5 mg PO DAILY 04/11/15 Ezetimibe [Zetia] 10 mg PO DAILY 04/11/15 Gabapentin [Neurontin] 800 mg PO TID 04/11/15 Hydrocodone/Acetaminophen [[place] 10-325 Tablet] 1 each PO DAILY PRN 04/11/15 Phenytoin Na Extended [Dilantin -] 100 mg PO TID 04/11/15 Losartan/Hydrochlorothiazide [Losartan-Hctz 100-25 mg Tablet] 1 each PO DAILY Clonidine HCl 0.1 mg PO TID 03/21/17 Quetiapine Fumarate [Seroquel] 100 tab PO HS 03/21/17 Zolpidem Tartrate [Ambien] 10 mg PO HS 03/21/17 Cardiac Disorders: Yes (afib) Diabetes: Yes HTN: Yes Hypercholesterolemia: Yes Suicide Attempt (Hx): No Seizures: Yes - Surgical History Abdominal Surgery: Yes (ECTOPIC PREGNANY) Appendectomy: Yes Orthopedic Surgery: Yes (both knee replacement) - Immunization History Immunization Up to Date: Yes - Psycho/Social/Smoking Cessation Hx Anxiety: No Suicidal Ideation: No Smoking Status: No Smoking History: Never smoked Years of Tobacco Use: 10 Have you smoked in the past 12 months: No Number of Cigarettes Smoked Daily: 0 Information on smoking cessation initiated: No Hx Alcohol Use: No Drug/Substance Use Hx: No Substance Use Type: None Review of Systems - Review of Systems Able to Perform ROS?: Yes Comments:: CONSTITUTIONAL: Absent: fever, chills, diaphoresis, generalized weakness, malaise, loss of appetite HEENT: Absent: rhinorrhea, nasal congestion, throat swelling CARDIOVASCULAR: Absent: chest pain, palpitations, irregular heart rate, lightheadedness, peripheral edema RESPIRATORY: +sob Absent: cough, dyspnea with exertion, orthopnea GASTROINTESTINAL: +abd pain, nausea, bright red blood per rectum, constipation Absent: abdominal distension, vomiting, diarrhea GENITOURINARY: Absent: dysuria SKIN: +rash on R thigh Absent: itching, pallor NEUROLOGIC: Absent: headache, dizziness, seizure PSYCHIATRIC: +anxiety Absent: depression, suicidal or homicidal ideation, hallucinations. *Physical Exam - Vital Signs Last Vital Signs Temp Pulse Resp BP Pulse Ox 97.5 F L 89 19 132/85 99 03/21/17 07:03 03/21/17 07:03 03/21/17 07:03 03/21/17 07:03 03/21/17 07:03 - Physical Exam Comments: GENERAL: Well developed, well nourished. Awake and alert. Akathisia. Diaphoretic. Pt having difficulty completing full sentences due to movement/anxiety. HEENT: Normocephalic, atraumatic.EOMI. No conjunctival pallor. Sclera are non-icteric. NECK: Full ROM. CARDIOVASCULAR: Regular rate and rhythm. No murmurs, rubs, or gallops. Distal pulses are 2+ and symmetric. PULMONARY: No evidence of respiratory distress. Lungs clear to auscultation bilaterally. No wheezing, rales or rhonchi. ABDOMINAL: +Lower abd pain (under umbilicus) Soft. Non-distended. No rebound or guarding. No organomegaly. Normoactive bowel sounds. MUSCULOSKELETAL Normal range of motion at all joints. No bony deformities or tenderness. EXTREMITIES: No edema. No calf tenderness. RECTAL: No external hemmorhoids. Stool in rectal vault. No masses palpated. SKIN: +R anterior thigh rash - multiple spots of hyperpigmented regions. Warm and diaphoretic. NEUROLOGICAL: Alert, awake, appropriate. Normal speech. PSYCHIATRIC: Cooperative. Good eye contact. 03/21/17 08:18 Heart Score/ECG Review - ECG Intrepretation Comment:: NSR at 79 bpm QTc 456 ms Possible Left atrial enlargement No ST segment changes noted. ED Treatment Course - LABORATORY CBC & Chemistry Diagram: 03/21/17 08:10 03/21/17 08:10 Medical Decision Making - Medical Decision Making 03/21/17 07:56 Pt is anxious and with akathisia like movements/agitation/clonus and diaphoretic from moving. She states she is anxious about the bleeding per rectum. Will order: CBCD, CMP, UA, Utox, EKG, FOBT 03/21/17 08:55 WBC: 27.3 Hgb 12 - at baseline, platelets 213- at baseline Will order CT abd. 03/21/17 09:24 Pt still exhibiting spontaneous clonus. Suspecting serotonin syndrome as she is on lexapro and duloxetine. Will give 2 mg IV valium at this time. 03/21/17 10:28 Cr: 3.6, baseline is under 1 Will give IVF NS @ 200ml/hr 03/21/17 10:49 CK elevated at 3597 and Cr 3.6 Will IVF NS bolus her at this time Will require admission for serotonin syndrome, rhabdo 03/21/17 11:09 After giving IV benzos to pt, agitation and movements have markedly decreased and pt seen sleeping in bed. Will continue with aggressive fluid hydration for rhabdo. Pt has back pain at this time and will give percocet 5/325 (on norco at home). Paged Dr. Brennan regarding admission. 03/21/17 13:37 CT abd/pelvis impression: Nondistention with suggestion of thickening of the descending and third portion of the duodenum; rule out duodenitis, postinflammatory or infectious. Diverticulosis coli without evidence of acute acute diverticulitis. There is suggestion of thickening of the mid and mid to distal colonic wall, likely chronic. Pt placed on zosyn. Pt accepted for inpatient tele by Dr. Brennan, covering for Dr. Springer *DC/Admit/Observation/Transfer Diagnosis at time of Disposition: Serotonin syndrome, Acute kidney injury Rhabdomyolysis Qualifiers: Rhabdomyolysis type: non-traumatic Qualified Code(s): M62.82 - Rhabdomyolysis - Discharge Dispostion Condition at time of disposition: Fair - Referrals
[2017-03-21 08:27] LABS: MCH 31.5 pg (25.7-33.7); MCHC 32.9 g/dl (32.0-36.0); MEAN CELL VOLUME 95.7 fl (80-96); MEAN PLT VOLUME 9.4 fl (7.5-11.1); PLATELET COUNT 213 K/MM3 (134-434); RDW 13.7 % (11.6-15.6); WHITE BLOOD COUNT 27.3 K/mm3 (4.0-10.0)
[2017-03-21] MEDS ORDERED: ALPRAZolam 0.25 MG TABLET PO ONE (08:29)
[2017-03-21] MEDS ORDERED: ALPRAZolam 0.25 MG TABLET ONE (08:32)
[2017-03-21 09:10] LABS: ALBUMIN 4.7 g/dl (3.4-5.0); ANION GAP 17 (8-16); CALCIUM 8.8 mg/dL (8.5-10.1); CO2 19 mmol/L (21-32); GLUCOSE,RANDOM 83 mg/dL (74-106)
[2017-03-21 09:14] LABS: ALK PHOS 131 U/L (45-117); BILIRUBIN,TOTAL 0.6 mg/dL (0.2-1.0); CREATININE 3.6 mg/dL (0.55-1.02); SGOT/AST 83 U/L (15-37); SGPT/ALT 56 U/L (12-78); TOT PROT 8.3 g/dl (6.4-8.2)
[2017-03-21] MEDS ORDERED: diazePAM CARPU-JECT 10 MG/2 ML DISP.SYRIN IVPUSH ONE (09:24)
--- NOTE | 2017-03-21 09:30 | PDOC ---
Attending Attestation - Resident Resident Name: Nba Devine - ED Attending Attestation I have performed the following: I have examined & evaluated the patient, The case was reviewed & discussed with the resident, I agree w/resident's findings & plan, Exceptions are as noted - HPI HPI: 03/21/17 09:25 61-year-old female presents with bright red blood per rectum in the setting of hard stool, increased agitation and motor movements over the last 24 hours. Patient was recently started on Prozac, taken off secondary to unclear side effects and started on Lexapro about a week ago, denies any other new medications. - Physicial Exam PE: 03/21/17 09:26 Vitals are within normal limits, not hypertensive or tachycardic Patient is very restless and anxious in stretcher, constantly fidgeting and moving around Multiple superficial ecchymotic lesions to the right arm and leg, no hematoma Ranging all extremities equally with full strength, slightly increased tone abd with tenderness and guarding in R mid and RLQ - Critical Care Time Total Critical Care Time: 30 Critical Care Statement: The care of this patient involved high complexity decision making to prevent further life threatening deterioration of the patient 's condition and/or to evalute & treat vital organ system(s) failure or risk of failure. - Medical Decision Making 03/21/17 09:28 Patient seen and evaluated with the resident. I agree with the overall evaluation, assessment, and management with the following summary of visit: 61-year-old female presents with 2 separate complaints: Bright red blood per rectum with otherwise brown stool. Presentation seems most consistent with anal fissure in the setting of constipation, very tender on rectal exam. She does have peritoneal findings localized to the right lower quadrant and right middle abdomen, will rule out colitis/diverticulitis/ appendicitis. No visible hemorrhoids on exam, no other lesions. Patient does have bruising to her right side, will check platelets and coags. Patient is very agitated and restless, she was recently started on Lexapro and is also historically taking Cymbalta. This is somewhat concerning for serotonin syndrome, there does not appear to be any autonomic dysfunction. Her mental status is appropriate at this time, her vital signs are normal. Check labs, urinalysis EKG CT of the abdomen and pelvis Supportive management with benzos Will likely require admission 03/21/17 11:49 serotonin syndrome complicated by rhabdo and JASS. neuromuscular sxs improved after IV benzo, aggressive IV fluid hydration, admit for further management. 03/21/17 12:19 CT shows duodenitis, possible colitis, no diverticulitis or appendicitis. Covered with Zosyn given the leukocytosis, though this could also be explained by the serotonin syndrome. Remains clinically improved from a neuromuscular perspective after benzos, accepted for inpatient telemetry by Dr. Brennan, admitting for Dr. Springer. Discharge Disposition - Diagnosis Serotonin syndrome, Acute kidney injury Rhabdomyolysis Qualifiers: Rhabdomyolysis type: non-traumatic Qualified Code(s): M62.82 - Rhabdomyolysis - Discharge Dispostion Condition at time of disposition: Fair Last Admission D/C Date: 03/02/11 Admit: Yes - Referrals - Patient Instructions - Post Discharge Activity
[2017-03-21 09:41] LABS: METAMYELOCYTE 1 % (0-2)
[2017-03-21 09:42] LABS: PLATELET ESTIMATE ADEQUATE (NORMAL)
[2017-03-21] MEDS ORDERED: SODIUM CHLORIDE 1,000 ML IV SCH ×2 (10:30→17:15)
[2017-03-21 10:35] LABS: TROPONIN I < 0.02 ng/ml (0.00-0.05)
[2017-03-21] MEDS ORDERED: diazePAM CARPU-JECT 10 MG/2 ML DISP.SYRIN ONE (10:45)
[2017-03-21] MEDS ORDERED: SODIUM CHLORIDE 2,000 ML IV STA (10:50)
[2017-03-21] MEDS ORDERED: OXYCODONE/APAP 5/325MG COMBO TABLET PO ONE (11:10)
[2017-03-21 11:23] LABS: INR 1.04 (0.82-1.09); PROTHROMBIN TIME (PATIENT) 11.4 SEC (9.98-11.88)
[2017-03-21 11:26] LABS: ACTIVATED PTT 31.1 SECONDS (26.9-34.4)
[2017-03-21] MEDS ORDERED: OXYCODONE/APAP 5/325MG COMBO TABLET ONE (12:06)
[2017-03-21] MEDS ORDERED: PIPERACILLIN/TAZOB 4.5 GM/100 ML PRE-DOCKED IVPB ONE (12:19)
[2017-03-21] MEDS ORDERED: PIPERACILLIN/TAZOB 4.5 GM 100 ML IVPB ONE (12:28)
[2017-03-21] MEDS ORDERED: ALBUTEROL SO4 0.083% IH SOL 2.5 MG/3 ML VIAL.NEB. NEB ONE ×2 (14:24→22:30)
[2017-03-21 14:26] LABS: URINE APPEARANCE CLEAR; URINE BILIRUBIN NEGATIVE (NEGATIVE); URINE COLOR YELLOW; URINE GLUCOSE (UA) NEGATIVE (NEGATIVE); URINE KETONE TRACE (NEGATIVE); URINE NITRITE NEGATIVE (NEGATIVE); URINE UROBILINOGEN NEGATIVE E.U./dl (0.2-1.0)
[2017-03-21 14:29] LABS: URINE BLOOD 3+ (NEGATIVE); URINE LEUK ESTERASE 1+ (NEGATIVE); URINE PROTEIN 1+ (NEGATIVE)
[2017-03-21 14:33] LABS: URINE HYALINE CAST 49 /lpf; URINE MUCUS RARE; URINE RBC 1 /hpf (0-3); URINE WBC 2 /hpf (3-5)
[2017-03-21 15:03] VITALS: BMI 28.3
[2017-03-21] MEDS ORDERED: morphine SO4 SUSTAINED ACTING 30 MG TABLET.SA PO SCH (15:15)
[2017-03-21] MEDS ORDERED: morphine SO4 SUSTAINED ACTING 15 MG TABLET.SA ONE (15:57)
--- NOTE | 2017-03-21 16:27 | CONSULT ---
Consultation: REQUESTING PROVIDER: CONSULT REQUEST: We have been asked to medically evaluate this patient for (ID). HISTORY OF PRESENT ILLNESS: 61 y/o F w/PMH of afib( not on coumadin) , diabetes , HTN, hypercholesterolemia, seizures, migraines, chronic back pain presents to ER with cc bright red blood per rectum. Patient states that she went bathroom yesterday night and had small amount of diarrhoea and than in end of defecation she noticed bright red blood. Blood was just present on tissue, no free blood. Blood was not mixed with stool. In morning patient noticed a pain in b/l lower quadrant 10/10 in intensity, sharp, non radiating, continuous, to7/10 in intensity after taking pain meds. Patient also reports nausea, but no vomiting. Patient also noticed abdominal diatension. Patient also states that she is having a difficulty in passing urine, states some time it falcon but no increase in frequency. Patient also states that she has two bowel movements in hospital and at both time she noticed a blood on tissue but no splash in duffy. color of stool was brown unable to tell if there was blood mixed with stool. She also states that last night she started having abnormal body movements which are better now. She also reports rashes on her body developed in morning present on b/l lower limb and and upper limb, non tender, not itchy. Denies over the counter medication. denies eating from outside, hiking, camping,. Denies working in garden, denies tick bite. Has pet which she just keep in her apartment don't take her out. Denies eating outside. Denies loss of weight, loss of apeatite has h/o a fib, but she is not on coumadin. stoped smoking and drinking at age of 19. no family h/o colon cancer or any gi problem. PMH: afib, DM, HTN, HLD, seizure, migrain, chronic back pain. PSH : appendectomy ekg: normal sinus rhythm. after louie: 800ml urine came out stat, abdominal distension decreased. and tenderness in LLQ went away but still have tenderness and rebound tenderness in RLQ REVIEW OF SYSTEMS: CONSTITUTIONAL: Absent: fever, chills, diaphoresis, HEENT: Absent: rhinorrhea, nasal congestion, throat pain, throat swelling, CARDIOVASCULAR: Absent: chest pain, syncope, palpitations, irregular heart rate, lightheadedness , peripheral edema RESPIRATORY: Absent: cough, shortness of breath, GASTROINTESTINAL: Absent: abdominal pain, abdominal distension, nausea, vomiting, diarrhea, constipation, melena, hematochezia GENITOURINARY: Absent: states has difficulty in passing urine and falcon some time. SKIN: Absent: rash, itching, pallor HEMATOLOGIC/IMMUNOLOGIC: Absent: easy bleeding, easy bruising, ENDOCRINE: Absent: unexplained weight gain, unexplained weight loss, PHYSICAL EXAMINATION Vital Signs - 24 hr 03/21/17 15:38 Pulse Rate [ 80 Apical] Respiratory 18 Rate Blood Pressure 139/84 [Arm] O2 Sat by Pulse 98 Oximetry (%) GENERAL: Awake, alert, and fully oriented, HEAD: Normal with no signs of trauma. EYES: Pupils equal, round and reactive to light, conjuctiva clear EARS, NOSE, THROAT: dry mucous membrane, cavities present. no pharyngeal erythema NECK:no lymphadenopathy, LUNGS: Breath sounds equal, clear to auscultation bilaterally. No wheezes, and no crackles. No accessory muscle use. HEART: s1s2 normal, regular ABDOMEN: Soft, tenderness in right lower quadrant, rebound tenderness in right lower quadrant, no guarding, no rigidity. BS + UPPER EXTREMITIES: 2+ pulses, warm, well-perfused. No cyanosis. rashes present in upper extremities LOWER EXTREMITIES: , well-perfused. No calf tenderness.rashes b/l lower limb SKIN: Warm, rashes in b/l lower and upper limb. Laboratory Results - last 24 hr 03/21/17 13:37 Urine Color Yellow Urine Appearance Clear Urine pH 5.0 Urine Protein 1+ H Urine Glucose (UA) Negative Urine Ketones Trace H Urine Blood 3+ H Urine Nitrite Negative Urine Bilirubin Negative Urine Urobilinogen Negative Ur Leukocyte Esterase 1+ H Urine RBC 1 Urine WBC 2 Ur Epithelial Cells Rare Hyaline Casts 49 Urine Mucus Rare Active Medications Generic Name Dose Route Start Last Admin Trade Name Freq PRN Reason Stop Dose Admin Amlodipine Besylate 5 mg 03/22/17 10:00 Norvasc - PO DAILY SOURAV Docusate Sodium 100 mg 03/22/17 10:00 Colace - PO DAILY SOURAV Ezetimibe 10 mg 03/22/17 10:00 Zetia - PO DAILY SOURAV Gabapentin 800 mg 03/21/17 22:00 Neurontin - PO TID SOURAV HCTZ/Losartan Potassium 2 tab 03/22/17 10:00 Hyzaar - PO DAILY SOURAV Morphine Sulfate 30 mg 03/21/17 15:15 03/21/17 15:58 Ms Contin - PO 30 mg BID SOURAV Administration Phenytoin Sodium 100 mg 03/21/17 22:00 Dilantin - PO TID SOURAV CBCD WBC 27.3 K/mm3 (4.0-10.0) H D 03/21/17 08:10 RBC 3.82 M/mm3 (3.60-5.2) 03/21/17 08:10 Hgb 12.0 GM/dL (10.7-15.3) 03/21/17 08:10 Hct 36.5 % (32.4-45.2) 03/21/17 08:10 MCV 95.7 fl (80-96) 03/21/17 08:10 MCHC 32.9 g/dl (32.0-36.0) 03/21/17 08:10 RDW 13.7 % (11.6-15.6) 03/21/17 08:10 Plt Count 213 K/MM3 (134-434) D 03/21/17 08:10 MPV 9.4 fl (7.5-11.1) D 03/21/17 08:10 CMP Sodium 143 mmol/L (136-145) 03/21/17 08:10 Potassium 4.3 mmol/L (3.5-5.1) 03/21/17 08:10 Chloride 107 mmol/L (98-107) 03/21/17 08:10 Carbon Dioxide 19 mmol/L (21-32) L D 03/21/17 08:10 Anion Gap 17 (8-16) H 03/21/17 08:10 BUN 60 mg/dL (7-18) H D 03/21/17 08:10 Creatinine 3.6 mg/dL (0.55-1.02) H D 03/21/17 08:10 Creat Clearance w eGFR 12.81 (>60) 03/21/17 08:10 Random Glucose 83 mg/dL (74-106) 03/21/17 08:10 Calcium 8.8 mg/dL (8.5-10.1) 03/21/17 08:10 Total Bilirubin 0.6 mg/dL (0.2-1.0) D 03/21/17 08:10 AST 83 U/L (15-37) H D 03/21/17 08:10 ALT 56 U/L (12-78) D 03/21/17 08:10 Alkaline Phosphatase 131 U/L (45-117) H 03/21/17 08:10 Total Protein 8.3 g/dl (6.4-8.2) H D 03/21/17 08:10 Albumin 4.7 g/dl (3.4-5.0) D 03/21/17 08:10 CARDIAC ENZYMES Creatine Kinase Cancelled 03/21/17 09:45 Troponin I Cancelled 03/21/17 09:45 ASSESSMENT/PLAN: 61 y/o female with h/o afib not on coumadin came to hospital with pain abdomen RLQ, urinary retention, leucocytosis, essie and rectal bleed colitis ? ischemic/ infective duodenitis urine retention essie could be post renal from urine retention / prerenal as urine as hyline cast / rhabdomylisis DM metabolic acidosis anion gap 17, hco3 19. rectal bleed Plan NPo IV fluid 100ml/hr and 500 ml iv bolus. ( got 2L in ed) iv zosyn and metronidazole louie insertion blood culture, urine culture, throat culture, cbc, cmp, urine myoglobinurea, lactic acid, phosphorus, magnesium Stool for culture and c diff. surgery consult for RLQ pain, tenderness and rebound tenderness. consider nephrology consult blood sugar monitoring. monitor vitals monitor intake and output. monitor hb Dispo: We will continue to follow the patient. Thank you for this consultative opportunity. Visit type - Emergency Visit Emergency Visit: Yes ED Registration Date: 03/21/17 Care time: The patient presented to the Emergency Department on the above date and was hospitalized for further evaluation of their emergent condition. - New Patient This patient is new to me today: Yes Date on this admission: 03/21/17 - Critical Care Critical Care patient: No
--- NOTE | 2017-03-21 17:39 | PN ---
Teaching Attending Note Name of Resident: Andrei Jean Baptiste ATTENDING PHYSICIAN STATEMENT I saw and evaluated the patient. I reviewed the resident's note and discussed the case with the resident. I agree with the resident's findings and plan as documented. SUBJECTIVE: developed blood per rectum last nigh, mainly on toilet paper early this am, abdominal pain son noted she was agitated last PM and perspiring no fevers noted rash and involuntary movements legs and arms- earlier today now resolved rash has persisted-nonpruritic no longer agitated we placed louie with 800 cc output and abdominal distention resolved with improvement of pain, LLQ pain resolved, RLQ pain is persistent no travel, no sick contacts no diarrhea not sexually active no vaginal discharge hiv negative in the past OBJECTIVE: Vital Signs Period Temp Pulse Resp BP Sys/Blackburn Pulse Ox Last 24 Hr 97.5 F 80-89 18-19 132-139/84-85 98-99 cor-rrr lungs clear abd soft,+BS RLQ pain on palpation with localized rebound, no guarding ext no edema skin with macular rash on both arms and right leg- ?erythema nodosum no rash on trunk CBC, BMP 03/21/17 08:10 03/21/17 08:10 cpk -[id number] ct scan-possible duodenitis, possible colitis ASSESSMENT AND PLAN: sepsis- ?colitis-ischemic versus infectious acidosis PIPER rash rectal bleeding history afib diabetes seizures rhabdomyolysis throat culture blood cultures/urine cultures cdiff/stool culture GI/surgery consult renal consult zosyn/flagyl lactic acid, repeat labs, acetone continue ivf npo d/w Dr Brennan
[2017-03-21] MEDS ORDERED: PIPERACILLIN/TAZOB 2.25 GM 50 ML IVPB SCH (18:00)
[2017-03-21] MEDS ORDERED: SODIUM CHLORIDE 500 ML IV STA (18:11)
[2017-03-21] MEDS: METRONIDAZOLE 500 MG PREMIXED 100 ML IVPB SCH (18:22)
[2017-03-21 18:31] LABS: BASOPHIL 0.4 % (0-2.0); EOSINOPHIL 0.1 % (0-4.5); MCH 31.1 pg (25.7-33.7); MCHC 32.5 g/dl (32.0-36.0); MEAN CELL VOLUME 95.4 fl (80-96); MEAN PLT VOLUME 9.7 fl (7.5-11.1); NEUTROPHILS 85.9 % (42.8-82.8); PLATELET COUNT 193 K/MM3 (134-434); RDW 13.5 % (11.6-15.6)
[2017-03-21] MEDS ORDERED: LORazepam 0.5 MG TABLET ONE (19:10)
[2017-03-21 19:29] LABS: ANION GAP 16 (8-16); BILIRUBIN,TOTAL 0.8 mg/dL (0.2-1.0); CALCIUM 8.8 mg/dL (8.5-10.1); CO2 19 mmol/L (21-32); COCKROFT - GAULT 37.1195; CREATININE 1.8 mg/dL (0.55-1.02); GLUCOSE,RANDOM 79 mg/dL (74-106); MAGNESIUM 2.8 mg/dL (1.8-2.4); SGOT/AST 100 U/L (15-37); SGPT/ALT 61 U/L (12-78); TOT PROT 7.3 g/dl (6.4-8.2)
[2017-03-21 19:30] LABS: ALK PHOS 118 U/L (45-117)
[2017-03-21] MEDS ORDERED: LORazepam 0.5 MG TABLET PO PRN (19:43)
[2017-03-21] MEDS ORDERED: PHENYTOIN NA EXTENDED 100 MG CAPSULE (FP) PO ONE (19:45)
--- NOTE | 2017-03-21 19:51 | CON.GI ---
Consult Consult Specialty:: GI Referred by:: Dr Brennan Reason for Consultation:: Rectal bleed - History of Present Illness Chief Complaint: Rectal bleed History of Present Illness: 61 F with h/o AF not on AC (patient states poss due to h/o epilepsy,, DM, HTN, HLD, migraines admitted with h/o BRBPR. She states she has been seeing blood with stool for the past 24 hours. She iitially stated she passed a lot of blood but on further questioning states on toilet tissue only after wiping. Hgb 12 on admission, now 10.9 after 2L IVF. She also c/o RLQ pain. She had leukocytosis with WBC 27K. NO diarrhea. - History Source History Provided By: Patient, Medical Record Limitations to Obtaining History: No Limitations - Past Medical History DROP MAN: Yes: Migraine, Seizure, Syncope Cardio/Vascular: Yes: CAD, HTN, Hyperlipdemia ...: No - Alcohol/Substance Use Hx Alcohol Use: No - Smoking History Smoking history: Never smoked Have you smoked in the past 12 months: No Aproximately how many cigarettes per day: 0 - Social History ADL: Independent History of Recent Travel: No Home Medications - Allergies Allergies/Adverse Reactions: Allergies Allergy/AdvReac Type Severity Reaction Status Date / Time Iodinated Contrast Media - Allergy Verified 03/21/17 07:08 Oral and IV DYE Allergy Uncoded 03/21/17 07:08 - Home Medications Home Medications: Ambulatory Orders Amlodipine Besylate [Norvasc -] 5 mg PO DAILY 04/11/15 Ezetimibe [Zetia] 10 mg PO DAILY 04/11/15 Gabapentin [Neurontin] 800 mg PO TID 04/11/15 Hydrocodone/Acetaminophen [[place] 10-325 Tablet] 1 each PO DAILY PRN 04/11/15 Phenytoin Na Extended [Dilantin -] 100 mg PO TID 04/11/15 Losartan/Hydrochlorothiazide [Losartan-Hctz 100-25 mg Tablet] 1 each PO DAILY Clonidine HCl 0.1 mg PO TID 03/21/17 Quetiapine Fumarate [Seroquel] 100 tab PO HS 03/21/17 Zolpidem Tartrate [Ambien] 10 mg PO HS 03/21/17 Physical Exam-GI Vital Signs: Vital Signs Temperature 98.2 F 03/21/17 17:00 Pulse Rate 81 03/21/17 17:00 Respiratory Rate 20 03/21/17 17:00 Blood Pressure 144/92 03/21/17 17:00 O2 Sat by Pulse Oximetry (%) 94 L 03/21/17 18:00 Constitutional: Yes: Well Nourished, Anxious HENT: Yes: Atraumatic Cardiovascular: Yes: Regular Rate and Rhythm Respiratory: Yes: CTA Bilaterally Gastrointestinal Inspection: Yes: WNL ...Auscultate: Yes: Normoactive Bowel Sounds ...Palpate: Yes: Soft, Tenderness ...Percussion: Yes: Dullness Labs: CBC, BMP 03/21/17 18:05 03/21/17 18:05 INR, PTT INR 1.04 (0.82-1.09) 03/21/17 09:30 Imaging - Results Cat Scan: Report Reviewed (Unimpressive-no definitive finding.) Assessment/Plan Patient with AF only on ASA, now with acute onset abdominal pain and modest rectal bleeding with marked leukocytosis all suggest ischemic issue, possibly embolic. Unfortunately, patient with renal failure making contrast study unfeasible. At this time agree with conservative management-careful IVF and antibiotics. NPO for now. Surgery on board. May need to consider AC going forward once recovered. Consider cardio consult-should have echo. C diff possible but unlikely-no diarrhea and patient appears non-toxic.
[2017-03-21 21:36] LABS: URINE MARIJUANA THC NEGATIVE ng/ml (CUTOFF=50)
[2017-03-21] MEDS: GABAPENTIN 400 MG CAPSULE (FP) PO SCH (23:01)
[2017-03-21 23:02] LABS: ACETONE SERUM TRACE (NEGATIVE)
[2017-03-21] MEDS: PHENYTOIN NA EXTENDED 100 MG CAPSULE (FP) PO SCH (23:02)
[2017-03-21] MEDS: PIPERACILLIN/TAZOB 2.25 GM 50 ML IVPB SCH (23:02)
[2017-03-21] MEDS: DEXTROSE 5%-NORMAL SALINE 1,000 ML IV SCH (23:30)
[2017-03-22] MEDS: METRONIDAZOLE 500 MG PREMIXED 100 ML IVPB SCH ×3 (02:08→17:08)
[2017-03-22] MEDS: PIPERACILLIN/TAZOB 2.25 GM 50 ML IVPB SCH ×4 (03:52→21:36)
[2017-03-22] MEDS: GABAPENTIN 400 MG CAPSULE (FP) PO SCH ×3 (05:44→21:36)
[2017-03-22] MEDS: PHENYTOIN NA EXTENDED 100 MG CAPSULE (FP) PO SCH ×3 (05:44→21:37)
[2017-03-22 06:42] LABS: BASOPHIL 0.4 % (0-2.0); EOSINOPHIL 1.1 % (0-4.5); MCH 31.5 pg (25.7-33.7); MCHC 33.3 g/dl (32.0-36.0); MEAN CELL VOLUME 94.5 fl (80-96); MEAN PLT VOLUME 9.3 fl (7.5-11.1); NEUTROPHILS 85.6 % (42.8-82.8); PLATELET COUNT 165 K/MM3 (134-434); RDW 13.7 % (11.6-15.6); WHITE BLOOD COUNT 13.4 K/mm3 (4.0-10.0)
[2017-03-22 06:55] LABS: ALBUMIN 3.3 g/dl (3.4-5.0); ANION GAP 12 (8-16); CALCIUM 8.4 mg/dL (8.5-10.1); CO2 22 mmol/L (21-32); GLUCOSE,RANDOM 112 mg/dL (74-106); SGPT/ALT 60 U/L (12-78)
[2017-03-22 06:57] LABS: ALK PHOS 106 U/L (45-117); COCKROFT - GAULT 74.2475; CREATININE 0.9 mg/dL (0.55-1.02); SGOT/AST 85 U/L (15-37); TOT PROT 6.3 g/dl (6.4-8.2)
[2017-03-22] MEDS ORDERED: LOSARTAN 50MG/HCTZ 12.5MG 1 TAB (FP) PO SCH (10:00)
[2017-03-22] MEDS ORDERED: amLODIPine BESYLATE 5 MG TABLET (FP) PO SCH (10:00)
--- NOTE | 2017-03-22 10:46 | HP ---
Admitting History and Physical - Primary Care Physician PCP: Leela Brennan - Admission Chief Complaint: abd pain/acute renal failure History of Present Illness: 61 y/o F w/PMH of afib( not on coumadin) , diabetes, HTN, hypercholesterolemia, seizures, migraines, chronic back pain presents to ER with cc bright red blood per rectum. Patient states that she went bathroom yesterday night and had small amount of diarrhoea and than in end of defecation she noticed bright red blood. Blood was just present on tissue, no free blood. Blood was not mixed with stool. In morning patient noticed a pain in b/l lower quadrant 10/10 in intensity, sharp, non radiating, continuous, to7/10 in intensity after taking pain meds. Patient also reports nausea, but no vomiting. Patient also noticed abdominal diatension. Patient also states that she is having a difficulty in passing urine, states some time it falcon but no increase in frequency. Patient also states that she has two bowel movements in hospital and at both time she noticed a blood on tissue but no splash in duffy. color of stool was brown unable to tell if there was blood mixed with stool. She also states that last night she started having abnormal body movements which are better now. She also reports rashes on her body developed in morning present on b/l lower limb and and upper limb, non tender, not itchy. Denies over the counter medication. denies eating from outside, hiking, camping,. Denies working in garden, denies tick bite. Has pet which she just keep in her apartment don't take her out. Denies eating outside. Denies loss of weight, loss of apeatite has h/o a fib, but she is not on coumadin. stoped smoking and drinking at age of 19. 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 Cardiovascular: Yes: CAD, HTN, Hyperlipdemia ...: No - Smoking History Smoking history: Never smoked Have you smoked in the past 12 months: No Aproximately how many cigarettes per day: 0 - Alcohol/Substance Use Hx Alcohol Use: No - Social History ADL: Independent History of Recent Travel: No Home Medications - Allergies Allergies/Adverse Reactions: Allergies Allergy/AdvReac Type Severity Reaction Status Date / Time Iodinated Contrast Media - Allergy Verified 03/21/17 07:08 Oral and IV DYE Allergy Uncoded 03/21/17 07:08 - Home Medications Home Medications: Ambulatory Orders Amlodipine Besylate [Norvasc -] 5 mg PO DAILY 04/11/15 Ezetimibe [Zetia] 10 mg PO DAILY 04/11/15 Gabapentin [Neurontin] 800 mg PO TID 04/11/15 Hydrocodone/Acetaminophen [[place] 10-325 Tablet] 1 each PO DAILY PRN 04/11/15 Phenytoin Na Extended [Dilantin -] 100 mg PO TID 04/11/15 Losartan/Hydrochlorothiazide [Losartan-Hctz 100-25 mg Tablet] 1 each PO DAILY Clonidine HCl 0.1 mg PO TID 03/21/17 Quetiapine Fumarate [Seroquel] 100 tab PO HS 03/21/17 Zolpidem Tartrate [Ambien] 10 mg PO HS 03/21/17 Review of Systems - Review of Systems Constitutional: reports: Loss of Appetite, Weakness Eyes: reports: No Symptoms HENT: reports: No Symptoms Neck: reports: No Symptoms Cardiovascular: reports: No Symptoms Respiratory: reports: SOB Gastrointestinal: reports: Abdominal Pain, Rectal Bleeding Genitourinary: reports: No Symptoms Musculoskeletal: reports: Extremity Pain, Joint Pain, Muscle Weakness Integumentary: reports: Rash Neurological: reports: Pre-Existing Deficit Endocrine: reports: No Symptoms Hematology/Lymphatic: reports: No Symptoms Physical Examination Vital Signs: Vital Signs Temperature 97.7 F 03/22/17 06:00 Pulse Rate 74 03/22/17 06:00 Respiratory Rate 20 03/22/17 06:00 Blood Pressure 156/93 03/22/17 06:00 O2 Sat by Pulse Oximetry (%) 94 L 03/22/17 02:00 Constitutional: Yes: Moderate Distress Eyes: Yes: WNL HENT: Yes: WNL Neck: Yes: WNL Cardiovascular: Yes: WNL Respiratory: Yes: WNL Gastrointestinal: Yes: Tenderness Renal/: Yes: WNL Musculoskeletal: Yes: Muscle Weakness Extremities: Yes: WNL Edema: No Peripheral Pulses WNL: Yes Integumentary: Yes: Rash Wound/Incision: Yes: Clean/Dry Neurological: Yes: Other ...Motor Strength: LLE, RLE Psychiatric: Yes: Other Labs: CBC, BMP 03/22/17 05:35 03/22/17 05:35 Imaging - Results Cat Scan: Report Reviewed Problem List - Problems (1) Acute kidney injury Code(s): N17.9 - ACUTE KIDNEY FAILURE, UNSPECIFIED (2) Rhabdomyolysis Code(s): M62.82 - RHABDOMYOLYSIS Qualifiers: Rhabdomyolysis type: non-traumatic Qualified Code(s): M62.82 - Rhabdomyolysis (3) Serotonin syndrome Code(s): G25.79 - OTHER DRUG INDUCED MOVEMENT DISORDERS (4) Cellulitis Code(s): L03.90 - CELLULITIS, UNSPECIFIED Qualifiers: Site of cellulitis of extremity: upper extremity (5) Chest pain Code(s): R07.9 - CHEST PAIN, UNSPECIFIED Qualifiers: Chest pain type: other chest pain Qualified Code(s): R07.89 - Other chest pain; R07.8 - Other chest pain (6) Chronic back pain Code(s): M54.9 - DORSALGIA, UNSPECIFIED G89.29 - OTHER CHRONIC PAIN Qualifiers: Back pain location: low back pain Back pain laterality: bilateral (7) Leg pain Code(s): M79.606 - PAIN IN LEG, UNSPECIFIED Qualifiers: Laterality: bilateral Qualified Code(s): M79.604 - Pain in right leg ; M79.605 - Pain in left leg (8) Leukocytosis Code(s): D72.829 - ELEVATED WHITE BLOOD CELL COUNT, UNSPECIFIED Qualifiers: Leukocytosis type: other Qualified Code(s): D72.828 - Other elevated white blood cell count (9) Ischemic bowel syndrome Code(s): K55.9 - VASCULAR DISORDER OF INTESTINE, UNSPECIFIED Assessment/Plan RENAL FUNCTION IMPROVED WITH IVF RENAL EVAL CPK STILL HIHG HOLD STATINS RENAL SONO PENDING IV ABX WBC ELEVATED ID F/U APPRECIATED AWAIT CULTURES ISCHEMIC BOWEL? WORKUP IN PROGRESS IV CONTRAST CONTRAINDICATED AT THIS TIME WITH ARF PAIN CONTROL
[2017-03-22] MEDS ORDERED: PT OWN MED DRAWER 7, Y5N ONE ×4 (11:20→21:24)
[2017-03-22] MEDS: DOCUSATE SODIUM 100 MG CAPSULE (FP) PO SCH (11:41)
[2017-03-22] MEDS: EZETIMIBE 10 MG TABLET (FP) PO SCH (12:37)
--- NOTE | 2017-03-22 12:43 | PN ---
Physical Exam: SUBJECTIVE: Patient seen and examined patient feels better denies chest pain, sob, fever and chills states have some cough patient creatinine has improved post cathetrization and after IV fluid. Urine myoglobin is still pending. Renal usg is pending. Patient still have pain abdomen in RLQ which is same as yesterday. Patient has bowel movement in morning and again saw a blood on tissue, less than yesterday. rashes improving since yesterday no abnormal body movements. OBJECTIVE: Vital Signs Period Temp Pulse Resp BP Sys/Blackburn Pulse Ox Last 24 Hr 97.6 F-98.3 F 74-87 18-20 137-156/84-93 94-98 GENERAL: Awake, alert, and fully oriented, HEAD: Normal with no signs of trauma. EYES: Pupils equal, round and reactive to light, conjuctiva clear EARS, NOSE, THROAT: moist mucous membrane, cavities present. no pharyngeal erythema NECK:no lymphadenopathy, LUNGS: Breath sounds equal, clear to auscultation bilaterally. No wheezes, and no crackles. No accessory muscle use. HEART: s1s2 normal, regular ABDOMEN: Soft, tenderness and rebound tenderness in RLQ, BS+ UPPER EXTREMITIES: 2+ pulses, warm, well-perfused. No cyanosis. LOWER EXTREMITIES: , well-perfused. No calf tenderness. SKIN: Warm, rashes in b/l lower and upper limb improving Laboratory Results - last 24 hr 03/21/17 03/21/17 03/21/17 13:37 13:37 18:05 WBC 20.0 H RBC 3.51 L Hgb 10.9 Hct 33.5 MCV 95.4 MCHC 32.5 RDW 13.5 Plt Count 193 MPV 9.7 Neutrophils % 85.9 H Lymphocytes % 9.0 D Monocytes % 4.6 Eosinophils % 0.1 D Basophils % 0.4 Sodium Potassium Chloride Carbon Dioxide Anion Gap BUN Creatinine Creat Clearance w eGFR POC Glucometer Random Glucose Lactic Acid Calcium Phosphorus Magnesium Total Bilirubin AST ALT Alkaline Phosphatase Creatine Kinase Total Protein Albumin Urine Color Yellow Urine Appearance Clear Urine pH 5.0 Ur Specific [place] 1.015 Urine Protein 1+ H Urine Glucose (UA) Negative Urine Ketones Trace H Urine Blood 3+ H Urine Nitrite Negative Urine Bilirubin Negative Urine Urobilinogen Negative Ur Leukocyte Esterase 1+ H Urine RBC 1 Urine WBC 2 Ur Epithelial Cells Rare Hyaline Casts 49 Urine Mucus Rare Ur Random Sodium Ur Random Potassium Ur Random Chloride Urine Creatinine Opiates Screen Positive Methadone Screen Negative Barbiturate Screen Negative Phenytoin Phencyclidine Screen Negative Ur Amphetamines Screen Negative MDMA (Ecstasy) Screen Negative Benzodiazepines Screen Negative Cocaine Screen Negative U Marijuana (THC) Screen Negative Acetone, Qual 03/21/17 03/21/17 03/21/17 18:05 18:05 18:30 WBC RBC Hgb Hct MCV MCHC RDW Plt Count MPV Neutrophils % Lymphocytes % Monocytes % Eosinophils % Basophils % Sodium 141 Potassium 3.9 Chloride 106 Carbon Dioxide 19 L Anion Gap 16 BUN 49 H Creatinine 1.8 H D Creat Clearance w eGFR 28.51 POC Glucometer Random Glucose 79 Lactic Acid 1.0 Calcium 8.8 Phosphorus 4.0 Magnesium 2.8 H Total Bilirubin 0.8 D AST 100 H D ALT 61 Alkaline Phosphatase 118 H Creatine Kinase Total Protein 7.3 Albumin 4.0 Urine Color Urine Appearance Urine pH Ur Specific [place] Urine Protein Urine Glucose (UA) Urine Ketones Urine Blood Urine Nitrite Urine Bilirubin Urine Urobilinogen Ur Leukocyte Esterase Urine RBC Urine WBC Ur Epithelial Cells Hyaline Casts Urine Mucus Ur Random Sodium 33 Ur Random Potassium 40.8 Ur Random Chloride 15 Urine Creatinine 107.0 Opiates Screen Methadone Screen Barbiturate Screen Phenytoin Phencyclidine Screen Ur Amphetamines Screen MDMA (Ecstasy) Screen Benzodiazepines Screen Cocaine Screen U Marijuana (THC) Screen Acetone, Qual Trace H 03/21/17 03/22/17 03/22/17 23:06 05:35 05:35 WBC RBC Hgb Hct MCV MCHC RDW Plt Count MPV Neutrophils % Lymphocytes % Monocytes % Eosinophils % Basophils % Sodium 142 Potassium 3.8 Chloride 108 H Carbon Dioxide 22 Anion Gap 12 BUN 29 H D Creatinine 0.9 D Creat Clearance w eGFR > 60 POC Glucometer 81 Random Glucose 112 H D Lactic Acid Calcium 8.4 L Phosphorus Magnesium Total Bilirubin 1.0 D AST 85 H ALT 60 Alkaline Phosphatase 106 Creatine Kinase Total Protein 6.3 L Albumin 3.3 L Urine Color Urine Appearance Urine pH Ur Specific [place] Urine Protein Urine Glucose (UA) Urine Ketones Urine Blood Urine Nitrite Urine Bilirubin Urine Urobilinogen Ur Leukocyte Esterase Urine RBC Urine WBC Ur Epithelial Cells Hyaline Casts Urine Mucus Ur Random Sodium Ur Random Potassium Ur Random Chloride Urine Creatinine Opiates Screen Methadone Screen Barbiturate Screen Phenytoin 4.6 L D Phencyclidine Screen Ur Amphetamines Screen MDMA (Ecstasy) Screen Benzodiazepines Screen Cocaine Screen U Marijuana (THC) Screen Acetone, Qual 03/22/17 03/22/17 03/22/17 05:35 05:35 06:00 WBC 13.4 H D RBC 3.57 L Hgb 11.2 Hct 33.7 MCV 94.5 MCHC 33.3 RDW 13.7 Plt Count 165 MPV 9.3 Neutrophils % 85.6 H Lymphocytes % 8.3 Monocytes % 4.6 Eosinophils % 1.1 D Basophils % 0.4 Sodium Potassium Chloride Carbon Dioxide Anion Gap BUN Creatinine Creat Clearance w eGFR POC Glucometer Random Glucose Lactic Acid Calcium Phosphorus Magnesium Total Bilirubin AST ALT Alkaline Phosphatase Creatine Kinase 2252 H D Total Protein Albumin Urine Color Urine Appearance Urine pH Ur Specific [place] Urine Protein Urine Glucose (UA) Urine Ketones Urine Blood Urine Nitrite Urine Bilirubin Urine Urobilinogen Ur Leukocyte Esterase Urine RBC Urine WBC Ur Epithelial Cells Hyaline Casts Urine Mucus Ur Random Sodium Ur Random Potassium Ur Random Chloride Urine Creatinine Opiates Screen Methadone Screen Barbiturate Screen Phenytoin Phencyclidine Screen Ur Amphetamines Screen MDMA (Ecstasy) Screen Benzodiazepines Screen Cocaine Screen U Marijuana (THC) Screen Acetone, Qual Negative L 03/22/17 03/22/17 06:14 08:20 WBC RBC Hgb Hct MCV MCHC RDW Plt Count MPV Neutrophils % Lymphocytes % Monocytes % Eosinophils % Basophils % Sodium Potassium Chloride Carbon Dioxide Anion Gap BUN Creatinine Creat Clearance w eGFR POC Glucometer 105 Random Glucose Lactic Acid 0.6 Calcium Phosphorus Magnesium Total Bilirubin AST ALT Alkaline Phosphatase Creatine Kinase Total Protein Albumin Urine Color Urine Appearance Urine pH Ur Specific [place] Urine Protein Urine Glucose (UA) Urine Ketones Urine Blood Urine Nitrite Urine Bilirubin Urine Urobilinogen Ur Leukocyte Esterase Urine RBC Urine WBC Ur Epithelial Cells Hyaline Casts Urine Mucus Ur Random Sodium Ur Random Potassium Ur Random Chloride Urine Creatinine Opiates Screen Methadone Screen Barbiturate Screen Phenytoin Phencyclidine Screen Ur Amphetamines Screen MDMA (Ecstasy) Screen Benzodiazepines Screen Cocaine Screen U Marijuana (THC) Screen Acetone, Qual Active Medications Generic Name Dose Route Start Last Admin Trade Name Freq PRN Reason Stop Dose Admin Albuterol Sulfate 1 amp 03/21/17 22:18 Ventolin 0.083% Nebulizer Soln - NEB Q6H PRN SHORT OF BREATH/WHEEZING Amlodipine Besylate 5 mg 03/22/17 10:00 03/22/17 11:42 Norvasc - PO 5 mg DAILY SOURAV Administration Docusate Sodium 100 mg 03/22/17 10:00 03/22/17 11:41 Colace - PO Not Given DAILY SOURAV Ezetimibe 10 mg 03/22/17 10:00 03/22/17 12:37 Zetia - PO 10 mg DAILY SOURAV Administration Gabapentin 800 mg 03/21/17 22:00 03/22/17 05:44 Neurontin - PO 800 mg TID SOURAV Administration HCTZ/Losartan Potassium 2 tab 03/22/17 10:00 03/22/17 12:37 Hyzaar - PO 2 tab DAILY SOURAV Administration Metronidazole 100 mls @ 100 mls/hr 03/21/17 18:00 03/22/17 10:41 Flagyl 500mg Premixed Ivpb - IVPB 100 mls/hr Q8H-IV SOURAV Administration Piperacillin Sod/Tazobactam Sod 50 mls @ 100 mls/hr 03/21/17 21:00 03/22/17 09: 50 Zosyn 2.25gm Ivpb (Pre-Docked) IVPB 100 mls/hr Q6H-IV SOURAV Administration Protocol Dextrose/Sodium Chloride 1,000 mls @ 83 mls/hr 03/21/17 23:30 03/21/17 23:30 D5-Ns - IV 83 mls/hr ASDIR SOURAV Administration Phenytoin Sodium 100 mg 03/21/17 22:00 03/22/17 05:44 Dilantin - PO 100 mg TID SOURAV Administration Pramipexole Dihydrochloride 0.25 mg 03/22/17 14:00 Mirapex - PO TID SOURAV CBCD WBC 13.4 K/mm3 (4.0-10.0) H D 03/22/17 05:35 RBC 3.57 M/mm3 (3.60-5.2) L 03/22/17 05:35 Hgb 11.2 GM/dL (10.7-15.3) 03/22/17 05:35 Hct 33.7 % (32.4-45.2) 03/22/17 05:35 MCV 94.5 fl (80-96) 03/22/17 05:35 MCHC 33.3 g/dl (32.0-36.0) 03/22/17 05:35 RDW 13.7 % (11.6-15.6) 03/22/17 05:35 Plt Count 165 K/MM3 (134-434) 03/22/17 05:35 MPV 9.3 fl (7.5-11.1) 03/22/17 05:35 CMP Sodium 142 mmol/L (136-145) 03/22/17 05:35 Potassium 3.8 mmol/L (3.5-5.1) 03/22/17 05:35 Chloride 108 mmol/L (98-107) H 03/22/17 05:35 Carbon Dioxide 22 mmol/L (21-32) 03/22/17 05:35 Anion Gap 12 (8-16) 03/22/17 05:35 BUN 29 mg/dL (7-18) H D 03/22/17 05:35 Creatinine 0.9 mg/dL (0.55-1.02) D 03/22/17 05:35 Creat Clearance w eGFR > 60 (>60) 03/22/17 05:35 Random Glucose 112 mg/dL (74-106) H D 03/22/17 05:35 Calcium 8.4 mg/dL (8.5-10.1) L 03/22/17 05:35 Total Bilirubin 1.0 mg/dL (0.2-1.0) D 03/22/17 05:35 AST 85 U/L (15-37) H 03/22/17 05:35 ALT 60 U/L (12-78) 03/22/17 05:35 Alkaline Phosphatase 106 U/L (45-117) 03/22/17 05:35 Total Protein 6.3 g/dl (6.4-8.2) L 03/22/17 05:35 Albumin 3.3 g/dl (3.4-5.0) L 03/22/17 05:35 CARDIAC ENZYMES Creatine Kinase 2252 IU/L (26-192) H D 03/22/17 05:35 Troponin I Cancelled 03/21/17 09:45 ASSESSMENT/PLAN: 61 y/o female with h/o afib not on coumadin came to hospital with pain abdomen RLQ, urinary retention, leucocytosis, essie and rectal bleed colitis ? ischemic/ infective duodenitis urine retention essie could be post renal from urine retention / prerenal as urine as hyline cast / rhabdomylisis : improved DM metabolic acidosis: improved rectal bleed Plan afebrile , wbc decreased to 13.4, essie improved, bicarb improved. continue iv zosyn and metronidazole continue IV fluid blood culture, urine culture, throat culture, Stool for culture and c diff.: pending surgery consult for RLQ pain, tenderness and rebound tenderness: pending Patient renal function has improved, consider ct abdomen with IV contrast once clear from renal side. ( patient is allergic to iodine) monitor vitals monitor intake and output. Visit type - Emergency Visit Emergency Visit: Yes ED Registration Date: 03/21/17 Care time: The patient presented to the Emergency Department on the above date and was hospitalized for further evaluation of their emergent condition. - New Patient This patient is new to me today: No - Critical Care Critical Care patient: No
--- NOTE | 2017-03-22 12:55 | CONSULT ---
Consult Consult Specialty:: surgery - History of Present Illness Chief Complaint: abd pain History of Present Illness: pt is a 61F with BRBPR. came to ER and also c/o abd pain and wbc was 27. CT obtained showed distal colitis? duodenitis? she also presented with ARF with some rhabdo. 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: Migraine, Seizure, Syncope Cardio/Vascular: Yes: CAD, HTN, Hyperlipdemia ...: No - Alcohol/Substance Use Hx Alcohol Use: No - Smoking History Smoking history: Never smoked Have you smoked in the past 12 months: No Aproximately how many cigarettes per day: 0 - Social History ADL: Independent History of Recent Travel: No Home Medications - Allergies Allergies/Adverse Reactions: Allergies Allergy/AdvReac Type Severity Reaction Status Date / Time Iodinated Contrast Media - Allergy Verified 03/21/17 07:08 Oral and IV DYE Allergy Uncoded 03/21/17 07:08 - Home Medications Home Medications: Ambulatory Orders Amlodipine Besylate [Norvasc -] 5 mg PO DAILY 04/11/15 Ezetimibe [Zetia] 10 mg PO DAILY 04/11/15 Gabapentin [Neurontin] 800 mg PO TID 04/11/15 Hydrocodone/Acetaminophen [[place] 10-325 Tablet] 1 each PO DAILY PRN 04/11/15 Phenytoin Na Extended [Dilantin -] 100 mg PO TID 04/11/15 Losartan/Hydrochlorothiazide [Losartan-Hctz 100-25 mg Tablet] 1 each PO DAILY Clonidine HCl 0.1 mg PO TID 03/21/17 Quetiapine Fumarate [Seroquel] 100 tab PO HS 03/21/17 Zolpidem Tartrate [Ambien] 10 mg PO HS 03/21/17 Review of Systems - Review of Systems Constitutional: denies: Chills, Fever Eyes: denies: Blind Spots, Blurred Vision HENT: denies: Difficult Swallowing, Ear Discharge Neck: denies: Decreased ROM, Lumps Cardiovascular: denies: Chest Pain, Edema Respiratory: denies: Cough, Exercise Intolerance Gastrointestinal: reports: Abdominal Pain, Rectal Bleeding Genitourinary: reports: Other (urinary retention.) Musculoskeletal: denies: Back Pain, Crepitus Integumentary: denies: Blister, Bruising Neurological: denies: Change in LOC, Change in Speech Endocrine: denies: Excessive Sweating, Flushing Hematology/Lymphatic: denies: Easily Bruised, Excessive Bleeding Psychiatric: denies: Altered Sleep Pattern, Anxiety Physical Exam Vital Signs: Vital Signs Temperature 97.7 F 03/22/17 06:00 Pulse Rate 74 03/22/17 06:00 Respiratory Rate 20 03/22/17 06:00 Blood Pressure 156/93 03/22/17 06:00 O2 Sat by Pulse Oximetry (%) 94 L 03/22/17 02:00 Constitutional: Yes: No Distress, Calm Eyes: Yes: Conjunctiva Clear, EOM Intact HENT: Yes: Atraumatic, Normocephalic Neck: Yes: Supple, Trachea Midline Cardiovascular: Yes: Regular Rate and Rhythm, Varicosities Respiratory: Yes: CTA Bilaterally Gastrointestinal: Yes: Soft, Tenderness (in RLQ with some min mild guarding). No: Distention ...Rectal Exam: Yes: Deferred Renal/: No: CVA Tenderness - Left, CVA Tenderness - Right Breast(s): No: Mass, Nipple Inversion Musculoskeletal: No: Joint Stiffness, Joint Swelling Extremities: No: Calf Tenderness, Erythema Integumentary: No: Erythema, Rash Neurological: Yes: Alert, Oriented Psychiatric: Yes: Alert, Oriented Labs: CBC, BMP 03/22/17 05:35 03/22/17 05:35 Imaging - Results Cat Scan: Report Reviewed, Image Reviewed Assessment/Plan pt with likely ischemic colitis. wbc improving. stil tender. can try liquid diet. if pain persists may need endoscopy for further diagnosis. if she deteriorates clinically she may need surgery.
--- NOTE | 2017-03-22 13:08 | EKG ---
Test Reason : Blood Pressure : / mmHG Vent. Rate : 079 BPM Atrial Rate : 079 BPM P-R Int : 148 ms QRS Dur : 088 ms QT Int : 398 ms P-R-T Axes : 031 024 007 degrees QTc Int : 456 ms NORMAL SINUS RHYTHM POSSIBLE LEFT ATRIAL ENLARGEMENT POSSIBLE ANTERIOR INFARCT , AGE UNDETERMINED ABNORMAL ECG WHEN COMPARED WITH ECG OF 07-DEC-2016 11:21, VENT. RATE HAS INCREASED BY [address] NO LONGER ELEVATED IN ANTERIOR LEADS NONSPECIFIC T WAVE ABNORMALITY NOW EVIDENT IN ANTERIOR LEADS Confirmed by MELL DUARTE MD ([id number]) on 03/22/2017 1:08:24 PM Referred By: Confirmed By:MELL DUARTE MD
--- NOTE | 2017-03-22 13:31 | CONSULT ---
Consult Consult Specialty:: Nephrology Reason for Consultation:: PIPER - History of Present Illness Chief Complaint: bright red blood per rectum History of Present Illness: Pt is a 61 year old female with pmhx of a-fib on aspirin, HTN, DM, chol, epilepsy, migraines and chronic back pain who presents to the ER with a GI bleed. She says she saw blood on the toiled paper while wiping. She denies blood in the toilet bowl. She was found to have elevated creatinine and I was called to evaluate her. She does complains of decreased PO intake. She has had nausea but no vomiting. She denies fevers or chills. She denies dysuria or hematuria. She denies fevers of chills. 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: Migraine, Seizure, Syncope Cardio/Vascular: Yes: CAD, HTN, Hyperlipdemia ...: No - Alcohol/Substance Use Hx Alcohol Use: No - Smoking History Smoking history: Never smoked Have you smoked in the past 12 months: No Aproximately how many cigarettes per day: 0 - Social History ADL: Independent History of Recent Travel: No Home Medications - Allergies Allergies/Adverse Reactions: Allergies Allergy/AdvReac Type Severity Reaction Status Date / Time Iodinated Contrast Media - Allergy Verified 03/21/17 07:08 Oral and IV DYE Allergy Uncoded 03/21/17 07:08 - Home Medications Home Medications: Ambulatory Orders Amlodipine Besylate [Norvasc -] 5 mg PO DAILY 04/11/15 Ezetimibe [Zetia] 10 mg PO DAILY 04/11/15 Gabapentin [Neurontin] 800 mg PO TID 04/11/15 Hydrocodone/Acetaminophen [[place] 10-325 Tablet] 1 each PO DAILY PRN 04/11/15 Phenytoin Na Extended [Dilantin -] 100 mg PO TID 04/11/15 Losartan/Hydrochlorothiazide [Losartan-Hctz 100-25 mg Tablet] 1 each PO DAILY Clonidine HCl 0.1 mg PO TID 03/21/17 Quetiapine Fumarate [Seroquel] 100 tab PO HS 03/21/17 Zolpidem Tartrate [Ambien] 10 mg PO HS 03/21/17 Family Disease History - Family Disease History Family History: Denies Review of Systems - Review of Systems Constitutional: denies: Chills, Fever Eyes: reports: No Symptoms HENT: reports: No Symptoms Neck: reports: No Symptoms Respiratory: reports: No Symptoms Gastrointestinal: reports: Abdominal Pain Genitourinary: denies: Burning, Dysuria Musculoskeletal: reports: No Symptoms Integumentary: reports: No Symptoms Neurological: reports: No Symptoms Endocrine: reports: No Symptoms Hematology/Lymphatic: reports: No Symptoms Physical Exam Vital Signs: Vital Signs Temperature 97.7 F 03/22/17 06:00 Pulse Rate 74 03/22/17 06:00 Respiratory Rate 20 03/22/17 06:00 Blood Pressure 156/93 03/22/17 06:00 O2 Sat by Pulse Oximetry (%) 96 03/22/17 10:00 Constitutional: Yes: Calm Eyes: Yes: Conjunctiva Clear HENT: Yes: Atraumatic Neck: Yes: Supple Cardiovascular: Yes: S1, S2 Respiratory: Yes: CTA Bilaterally Gastrointestinal: Yes: Soft Renal/: Yes: [place] Present Musculoskeletal: Yes: WNL Edema: No Neurological: Yes: Oriented Psychiatric: Yes: Oriented Labs: CBC, BMP 03/22/17 05:35 03/22/17 05:35 Laboratory Tests 03/21/17 03/21/17 03/21/17 08:10 08:10 09:30 WBC 27.3 H D Hgb 12.0 Plt Count 213 D INR 1.04 PTT (Actin FS) 31.1 Sodium Potassium Chloride Carbon Dioxide Anion Gap BUN 60 H D Creatinine 3.6 H D Lactic Acid Creatine Kinase 3597 H D Albumin 4.7 D Urine Color Urine Appearance Urine pH Ur Specific [place] Urine Protein Urine Glucose (UA) Urine Ketones Urine Blood Urine Nitrite Urine Bilirubin Urine Urobilinogen Ur Leukocyte Esterase Urine RBC Urine WBC Urine Myoglobin Ur Random Sodium Urine Creatinine 03/21/17 03/21/17 03/21/17 13:37 18:05 18:05 WBC 20.0 H Hgb 10.9 Plt Count 193 INR PTT (Actin FS) Sodium Potassium Chloride Carbon Dioxide Anion Gap BUN 49 H Creatinine 1.8 H D Lactic Acid Creatine Kinase Albumin 4.0 Urine Color Yellow Urine Appearance Clear Urine pH 5.0 Ur Specific [place] 1.015 Urine Protein 1+ H Urine Glucose (UA) Negative Urine Ketones Trace H Urine Blood 3+ H Urine Nitrite Negative Urine Bilirubin Negative Urine Urobilinogen Negative Ur Leukocyte Esterase 1+ H Urine RBC 1 Urine WBC 2 Urine Myoglobin Ur Random Sodium Urine Creatinine 03/21/17 03/21/17 03/22/17 18:30 18:30 05:35 WBC Hgb Plt Count INR PTT (Actin FS) Sodium 142 Potassium 3.8 Chloride 108 H Carbon Dioxide 22 Anion Gap 12 BUN 29 H D Creatinine 0.9 D Lactic Acid Creatine Kinase Albumin 3.3 L Urine Color Urine Appearance Urine pH Ur Specific [place] Urine Protein Urine Glucose (UA) Urine Ketones Urine Blood Urine Nitrite Urine Bilirubin Urine Urobilinogen Ur Leukocyte Esterase Urine RBC Urine WBC Urine Myoglobin Pending Ur Random Sodium 33 Urine Creatinine 107.0 03/22/17 03/22/17 03/22/17 05:35 05:35 08:20 WBC 13.4 H D Hgb 11.2 Plt Count 165 INR PTT (Actin FS) Sodium Potassium Chloride Carbon Dioxide Anion Gap BUN Creatinine Lactic Acid 0.6 Creatine Kinase 2252 H D Albumin Urine Color Urine Appearance Urine pH Ur Specific [place] Urine Protein Urine Glucose (UA) Urine Ketones Urine Blood Urine Nitrite Urine Bilirubin Urine Urobilinogen Ur Leukocyte Esterase Urine RBC Urine WBC Urine Myoglobin Ur Random Sodium Urine Creatinine Imaging - Results Cat Scan: Report Reviewed (distended urinary bladder) Problem List - Problems (1) Acute kidney injury Code(s): N17.9 - ACUTE KIDNEY FAILURE, UNSPECIFIED (2) Leukocytosis Code(s): D72.829 - ELEVATED WHITE BLOOD CELL COUNT, UNSPECIFIED Qualifiers: Leukocytosis type: other Qualified Code(s): D72.828 - Other elevated white blood cell count (3) Rhabdomyolysis Code(s): M62.82 - RHABDOMYOLYSIS Qualifiers: Rhabdomyolysis type: non-traumatic Qualified Code(s): M62.82 - Rhabdomyolysis Assessment/Plan Current Medications Generic Name Dose Route Start Last Admin Trade Name Freq PRN Reason Stop Dose Admin Albuterol Sulfate 1 amp 03/21/17 22:18 Ventolin 0.083% Nebulizer Soln - NEB Q6H PRN SHORT OF BREATH/WHEEZING Amlodipine Besylate 5 mg 03/22/17 10:00 03/22/17 11:42 Norvasc - PO 5 mg DAILY SOURAV Administration Docusate Sodium 100 mg 03/22/17 10:00 03/22/17 11:41 Colace - PO Not Given DAILY SOURAV Ezetimibe 10 mg 03/22/17 10:00 03/22/17 12:37 Zetia - PO 10 mg DAILY SOURAV Administration Gabapentin 800 mg 03/21/17 22:00 03/22/17 05:44 Neurontin - PO 800 mg TID SOURAV Administration HCTZ/Losartan Potassium 2 tab 03/22/17 10:00 03/22/17 12:37 Hyzaar - PO 2 tab DAILY SOURAV Administration Metronidazole 100 mls @ 100 mls/hr 03/21/17 18:00 03/22/17 10:41 Flagyl 500mg Premixed Ivpb - IVPB 100 mls/hr Q8H-IV SOURAV Administration Piperacillin Sod/Tazobactam Sod 50 mls @ 100 mls/hr 03/21/17 21:00 03/22/17 09: 50 Zosyn 2.25gm Ivpb (Pre-Docked) IVPB 100 mls/hr Q6H-IV SOURAV Administration Protocol Dextrose/Sodium Chloride 1,000 mls @ 83 mls/hr 03/21/17 23:30 03/21/17 23:30 D5-Ns - IV 83 mls/hr ASDIR SOURAV Administration Phenytoin Sodium 100 mg 03/21/17 22:00 03/22/17 05:44 Dilantin - PO 100 mg TID SOURAV Administration Pramipexole Dihydrochloride 0.25 mg 03/22/17 14:00 Mirapex - PO TID SOURAV Impression 1. PIPER 2. rhabdo 3. HTN 4. abdominal pain 5. epilepsy Plan - cont with fluids - ck level is improving - stop losartan, as it can cause rhabdo - can start lisinopril - repeat ua in am - repeat labs in am - check renal and bladder ultrasound - hold hctz for now - can increase norvasc to 10 mg - FENa 0.39%
[2017-03-22] MEDS: PRAMIPEXOLE DIHYDROCHLORIDE 0.25 MG TABLET PO SCH ×2 (13:59→21:37)
[2017-03-22] MEDS: ALBUTEROL SO4 0.083% IH SOL 2.5 MG/3 ML VIAL.NEB. NEB PRN ×2 (15:38→22:45)
--- NOTE | 2017-03-22 17:22 | PN ---
Teaching Attending Note Name of Resident: Andrei Jean Baptiste ATTENDING PHYSICIAN STATEMENT I saw and evaluated the patient. I reviewed the resident's note and discussed the case with the resident. I agree with the resident's findings and plan as documented. SUBJECTIVE: Reports less abdominal pain Afebrile WBC improving BC no growth Stool studies pending OBJECTIVE: Awake, alert Afebrile Cor S1S2 Lungs clear Abdo soft + tenderness RLQ ASSESSMENT AND PLAN: Ischemic v infectious colitis Leukocytosis Await cultures Continue empiric zosyn/ flagyl
[2017-03-22] MEDS ORDERED: amLODIPine BESYLATE 5 MG TABLET (FP) PO ONE (21:15)
[2017-03-22] MEDS ORDERED: LISINOPRIL 10 MG TABLET (FP) PO ONE (21:15)
[2017-03-22] MEDS: DEXTROSE 5%-NORMAL SALINE 1,000 ML IV SCH (21:38)
--- NOTE | 2017-03-22 22:31 | CONSULT ---
Consult - text type - Consultation Consultation Note: Patient seen and examined 61 F with h/o AF not on AC, DM, HTN, HLD, migraines admitted with h/o BRBPR. Hgb 12 on admission, now 10.9 after 2L IVF. She also c/o RLQ pain. She had leukocytosis with WBC 27K. 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 Cardio/Vascular: Yes: CAD, HTN, Hyperlipdemia - Smoking History Smoking history: Never smoked - Allergies Allergies/Adverse Reactions: Allergies Allergy/AdvReac Type Severity Reaction Status Date / Time Iodinated Contrast Media - Allergy Verified 03/21/17 07:08 Oral and IV DYE Allergy Uncoded 03/21/17 07:08 - Home Medications Home Medications: Ambulatory Orders Amlodipine Besylate [Norvasc -] 5 mg PO DAILY 04/11/15 Ezetimibe [Zetia] 10 mg PO DAILY 04/11/15 Gabapentin [Neurontin] 800 mg PO TID 04/11/15 Hydrocodone/Acetaminophen [[place] 10-325 Tablet] 1 each PO DAILY PRN 04/11/15 Phenytoin Na Extended [Dilantin -] 100 mg PO TID 04/11/15 Losartan/Hydrochlorothiazide [Losartan-Hctz 100-25 mg Tablet] 1 each PO DAILY Clonidine HCl 0.1 mg PO TID 03/21/17 Quetiapine Fumarate [Seroquel] 100 tab PO HS 03/21/17 Zolpidem Tartrate [Ambien] 10 mg PO HS 03/21/17 Physical Exam-GI Vital Signs: Vital Signs Temperature 98.2 F 03/21/17 17:00 Pulse Rate 81 03/21/17 17:00 Respiratory Rate 20 03/21/17 17:00 Blood Pressure 144/92 03/21/17 17:00 O2 Sat by Pulse Oximetry (%) 94 L 03/21/17 18:00 Constitutional: Yes: Well Nourished, Anxious HENT: Yes: Atraumatic Cardiovascular: Yes: Regular Rate and Rhythm Respiratory: Yes: CTA Bilaterally Gastrointestinal Inspection: Yes: WNL ...Auscultate: Yes: Normoactive Bowel Sounds ...Palpate: Yes: Soft, Tenderness, RLQ Abnormal Lab Results 03/25/17 03/25/17 06:00 06:00 Eosinophils % 5.8 H Potassium 3.3 L Anion Gap 7 L Assessment/Plan 61 y/o presenting with bleeding per rectum, rhabdomylolysis,PIPER, colitis on empiric zosyn/flagyl we have been consulted for leukopenia which is improving on antibiotics hence suspect its reactive on exam also has axillary adenopathy which will need further w/u -- u/s, biopsy will follow
[2017-03-22] MEDS: ACETAMINOPHEN 1000 MG/100 ML VIAL (NON FORMULARY) IVPB PRN (23:03)
[2017-03-23] MEDS: METRONIDAZOLE 500 MG PREMIXED 100 ML IVPB SCH ×3 (01:06→17:08)
[2017-03-23] MEDS: PIPERACILLIN/TAZOB 2.25 GM 50 ML IVPB SCH ×4 (02:29→21:59)
[2017-03-23] MEDS ORDERED: PT OWN MED DRAWER 7, Y5N ONE ×4 (06:32→21:14)
[2017-03-23] MEDS: PHENYTOIN NA EXTENDED 100 MG CAPSULE (FP) PO SCH ×3 (06:33→22:00)
[2017-03-23] MEDS: PRAMIPEXOLE DIHYDROCHLORIDE 0.25 MG TABLET PO SCH ×3 (06:33→22:01)
[2017-03-23] MEDS: GABAPENTIN 400 MG CAPSULE (FP) PO SCH ×3 (06:33→22:00)
[2017-03-23 07:33] LABS: CALCIUM 9.2 mg/dL (8.5-10.1); COCKROFT - GAULT 133.654; CREATININE 0.5 mg/dL (0.55-1.02)
--- NOTE | 2017-03-23 09:02 | PN ---
Physical Exam: SUBJECTIVE: Patient seen and examined lying comfartably in bed states i am [place] denies fever, chills, nusea, vomiting states pain still persists and is same. states had bowel movement, no blood OBJECTIVE: Vital Signs Period Temp Pulse Resp BP Sys/Blackburn Pulse Ox Last 24 Hr 98 F-99.4 F 82-94 16-20 150-183/92-112 94-96 GENERAL: Awake, alert, and fully oriented, HEAD: Normal with no signs of trauma. EYES: Pupils equal, round and reactive to light, conjuctiva clear EARS, NOSE, THROAT: moist mucous membrane, cavities present. no pharyngeal erythema NECK:no lymphadenopathy, LUNGS: Breath sounds equal, clear to auscultation bilaterally. No wheezes, and no crackles. No accessory muscle use. HEART: s1s2 normal, regular ABDOMEN: Soft, tenderness and rebound tenderness in RLQ, BS+, distended, UPPER EXTREMITIES: 2+ pulses, warm, well-perfused. No cyanosis. LOWER EXTREMITIES: , well-perfused. No calf tenderness. SKIN: Warm, rashes in b/l lower and upper limb improving Laboratory Results - last 24 hr 03/22/17 03/22/17 03/22/17 06:00 08:20 12:29 Sodium Potassium Chloride Carbon Dioxide Anion Gap BUN Creatinine POC Glucometer 118 Random Glucose Lactic Acid 0.6 Calcium Creatine Kinase CK-MB (CK-2) Acetone, Qual Negative L 03/22/17 03/22/17 03/23/17 17:11 21:19 05:45 Sodium Potassium Chloride Carbon Dioxide Anion Gap BUN Creatinine POC Glucometer 99 114 105 Random Glucose Lactic Acid Calcium Creatine Kinase CK-MB (CK-2) Acetone, Qual 03/23/17 06:00 Sodium 141 Potassium 3.4 L Chloride 103 Carbon Dioxide 25 Anion Gap 13 BUN 10 D Creatinine 0.5 L D POC Glucometer Random Glucose 109 H Lactic Acid Calcium 9.2 Creatine Kinase 722 H D CK-MB (CK-2) 6.863 H Acetone, Qual Active Medications Generic Name Dose Route Start Last Admin Trade Name Freq PRN Reason Stop Dose Admin Acetaminophen 1,000 mg 03/22/17 22:03 03/22/17 23:03 Ofirmev Injection - IVPB 03/23/17 22:02 1,000 mg Q6H PRN Administration PAIN Albuterol Sulfate 1 amp 03/21/17 22:18 03/22/17 22:45 Ventolin 0.083% Nebulizer Soln - NEB 1 amp Q6H PRN Administration SHORT OF BREATH/WHEEZING Amlodipine Besylate 10 mg 03/23/17 10:00 Norvasc - PO DAILY SOURAV Docusate Sodium 100 mg 03/22/17 10:00 03/22/17 11:41 Colace - PO Not Given DAILY SOURAV Ezetimibe 10 mg 03/22/17 10:00 03/22/17 12:37 Zetia - PO 10 mg DAILY SOURAV Administration Gabapentin 800 mg 03/21/17 22:00 03/23/17 06:33 Neurontin - PO 800 mg TID SOURAV Administration Metronidazole 100 mls @ 100 mls/hr 03/21/17 18:00 03/23/17 01:06 Flagyl 500mg Premixed Ivpb - IVPB 100 mls/hr Q8H-IV SOURAV Administration Piperacillin Sod/Tazobactam Sod 50 mls @ 100 mls/hr 03/21/17 21:00 03/23/17 02: 29 Zosyn 2.25gm Ivpb (Pre-Docked) IVPB 100 mls/hr Q6H-IV SOURAV Administration Protocol Dextrose/Sodium Chloride 1,000 mls @ 83 mls/hr 03/21/17 23:30 03/22/17 21:38 D5-Ns - IV 83 mls/hr ASDIR SOURAV Administration Lisinopril 10 mg 03/23/17 10:00 Prinivil PO DAILY SOURAV Phenytoin Sodium 100 mg 03/21/17 22:00 03/23/17 06:33 Dilantin - PO 100 mg TID SOURAV Administration Pramipexole Dihydrochloride 0.25 mg 03/22/17 14:00 03/23/17 06:33 Mirapex - PO 0.25 mg TID SOURAV Administration Microbiology 03/21/17 18:30 Throat Throat Culture - Final NO BETA HEMOLYTIC STREPTOCOCCI ISOLATED 03/21/17 21:30 Blood - Peripheral Venous Blood Culture - Preliminary NO GROWTH OBTAINED AFTER 24 HOURS, INCUBATION TO CONTINUE FOR 4 DAYS. 03/22/17 12:00 Stool Clostridium difficile Antigen (YA) - Final 03/22/17 12:00 Stool Clostridium difficile Toxin Assay - Final ASSESSMENT/PLAN: 61 y/o female with h/o afib not on coumadin came to hospital with pain abdomen RLQ, urinary retention, leucocytosis, essie and rectal bleed colitis ? ischemic/ infective duodenitis urine retention essie: improved DM metabolic acidosis: improved rectal bleed Plan continue iv zosyn and metronidazole on IV fluid follow culture and c diff report monitor vitals monitor intake and output. monitor and control BP Visit type - Emergency Visit Emergency Visit: Yes ED Registration Date: 03/21/17 Care time: The patient presented to the Emergency Department on the above date and was hospitalized for further evaluation of their emergent condition. - New Patient This patient is new to me today: No - Critical Care Critical Care patient: No
[2017-03-23] MEDS ORDERED: LISINOPRIL 10 MG TABLET (FP) PO SCH (10:00)
[2017-03-23 10:36] LABS: MCH 32.1 pg (25.7-33.7); MCHC 33.6 g/dl (32.0-36.0); MEAN CELL VOLUME 95.3 fl (80-96); MEAN PLT VOLUME 9.6 fl (7.5-11.1); PLATELET COUNT 197 K/MM3 (134-434); RDW 14.1 % (11.6-15.6); WHITE BLOOD COUNT 9.8 K/mm3 (4.0-10.0)
[2017-03-23] MEDS: amLODIPine BESYLATE 10 MG TABLET (FP) PO SCH (10:45)
[2017-03-23] MEDS: DOCUSATE SODIUM 100 MG CAPSULE (FP) PO SCH (10:45)
[2017-03-23] MEDS: EZETIMIBE 10 MG TABLET (FP) PO SCH (10:46)
[2017-03-23 12:43] LABS: PLATELET ESTIMATE ADEQUATE (NORMAL)
--- NOTE | 2017-03-23 12:46 | PN ---
Progress Note, Physician Chief Complaint: abd pain History of Present Illness: still having abd pain, no improvement. appetite poor. +BM and no blood in stool. no n/v. no fever. wbc now normal. - Current Medication List Current Medications: Active Medications Acetaminophen (Ofirmev Injection -) 1,000 mg IVPB Q6H PRN PRN Reason: PAIN Stop: 03/23/17 22:02 Last Admin: 03/22/17 23:03 Dose: 1,000 mg Albuterol Sulfate (Ventolin 0.083% Nebulizer Soln -) 1 amp NEB Q6H PRN PRN Reason: SHORT OF BREATH/WHEEZING Last Admin: 03/22/17 22:45 Dose: 1 amp Amlodipine Besylate (Norvasc -) 10 mg PO DAILY [facility] Last Admin: 03/23/17 10:45 Dose: 10 mg Docusate Sodium (Colace -) 100 mg PO DAILY [facility] Last Admin: 03/23/17 10:45 Dose: Not Given Ezetimibe (Zetia -) 10 mg PO DAILY [facility] Last Admin: 03/23/17 10:46 Dose: 10 mg Gabapentin (Neurontin -) 800 mg PO TID [facility] Last Admin: 03/23/17 06:33 Dose: 800 mg Metronidazole (Flagyl 500mg Premixed Ivpb -) 100 mls @ 100 mls/hr IVPB Q8H-IV [facility] Last Admin: 03/23/17 10:46 Dose: 100 mls/hr Piperacillin Sod/Tazobactam Sod (Zosyn 2.25gm Ivpb (Pre-Docked)) 50 mls @ 100 mls/hr IVPB Q6H-IV [facility] PRN Reason: Protocol Last Admin: 03/23/17 10:46 Dose: 100 mls/hr Dextrose/Sodium Chloride (D5-Ns -) 1,000 mls @ 83 mls/hr IV ASDIR [facility] Last Admin: 03/22/17 21:38 Dose: 83 mls/hr Lisinopril (Prinivil) 10 mg PO DAILY [facility] Last Admin: 03/23/17 10:45 Dose: 10 mg Phenytoin Sodium (Dilantin -) 100 mg PO TID [facility] Last Admin: 03/23/17 06:33 Dose: 100 mg Pramipexole Dihydrochloride (Mirapex -) 0.25 mg PO TID [facility] Last Admin: 05/26/17 06:33 Dose: 0.25 mg - Objective Vital Signs: Vital Signs Temperature 98 F 03/23/17 06:00 Pulse Rate 91 H 03/23/17 06:00 Respiratory Rate 20 03/23/17 06:00 Blood Pressure 183/112 03/23/17 06:00 O2 Sat by Pulse Oximetry (%) 94 L 03/22/17 21:00 Constitutional: Yes: No Distress, Calm Eyes: Yes: Conjunctiva Clear, EOM Intact HENT: Yes: Atraumatic, Normocephalic Neck: Yes: Supple, Trachea Midline Cardiovascular: Yes: Regular Rate and Rhythm Respiratory: Yes: Regular, CTA Bilaterally Gastrointestinal: Yes: Soft, Tenderness (rlq with some guarding unchanged). No : Distention ...Rectal Exam: Yes: Deferred Genitourinary: No: CVA Tenderness - Left, CVA Tenderness - Right Musculoskeletal: No: Joint Stiffness, Joint Swelling Extremities: No: Calf Tenderness, Erythema Neurological: Yes: Alert, Oriented Psychiatric: Yes: Alert, Oriented Labs: CBC, BMP 03/23/17 06:30 03/23/17 06:00 INR, PTT INR 1.04 (0.82-1.09) 03/21/17 09:30 Problem List - Problems (1) Ischemic bowel syndrome Assessment/Plan: abd pain unclear etiology. pain is constantly in RLQ but CT scan showed distal colitis maybe and possible duodenitis. wbc is now normal. patient is nontoxic in appearance. vitals are stable. I believe she is clinically improving and would advance her diet once she feels better. at this point I dont believe surgical intervention would be of benefit. I would cont abx, and consider re-imaging patient vs EGD/colonoscopy if patient fails to improve by nxt week. she may benefit from pre-meication to get IV contrast to get a better CT next week? Code(s): K55.9 - VASCULAR DISORDER OF INTESTINE, UNSPECIFIED
[2017-03-23] MEDS: DEXTROSE 5%-NORMAL SALINE 1,000 ML IV SCH (13:57)
--- NOTE | 2017-03-23 14:13 | PN ---
Teaching Attending Note Name of Resident: Andrei Jean Baptiste ATTENDING PHYSICIAN STATEMENT I saw and evaluated the patient. I reviewed the resident's note and discussed the case with the resident. I agree with the resident's findings and plan as documented. SUBJECTIVE: still with RLQ discomfort no fevers OBJECTIVE: Vital Signs Period Temp Pulse Resp BP Sys/Blackburn Pulse Ox Last 24 Hr 98 F-99.4 F 82-94 16-20 150-183/92-112 94 cor-rrr lungs clear abd soft, +rlq discomfort to palpation ext no edema rash resolving CBC, BMP 03/23/17 06:30 03/23/17 06:00 Microbiology 03/22/17 12:00 Stool Salmonella/Shigella Culture - Preliminary NO ENTERIC PATHOGENS, 24 HOURS, ON PRIMARY PLATES 03/22/17 12:00 Stool Yersinia Culture - Preliminary NO ENTERIC PATHOGENS, 24 HOURS, ON PRIMARY PLATES 03/22/17 12:00 Stool Vibrio Culture - Final NO GROWTH OF VIBRIO SPECIES OBTAINED 03/22/17 12:00 Stool Escherichia coli 0157 Culture - Final NO GROWTH OF E COLI 0157 OBTAINED 03/21/17 18:30 Urine - Urine [place] Urine Culture - Final NO GROWTH OBTAINED 03/21/17 18:30 Throat Throat Culture - Final NO BETA HEMOLYTIC STREPTOCOCCI ISOLATED 03/21/17 21:30 Blood - Peripheral Venous Blood Culture - Preliminary NO GROWTH OBTAINED AFTER 24 HOURS, INCUBATION TO CONTINUE FOR 4 DAYS. 03/22/17 12:00 Stool Clostridium difficile Antigen (YA) - Final 03/22/17 12:00 Stool Clostridium difficile Toxin Assay - Final ASSESSMENT AND PLAN: colitis- ?ischemic continue antiibiotics surgery/gi f/u ongoing
[2017-03-23] MEDS: ACETAMINOPHEN 1000 MG/100 ML VIAL (NON FORMULARY) IVPB PRN (15:31)
--- NOTE | 2017-03-23 15:31 | PN ---
GI Progress Note Subjective: Complaining about ongoing abdominal pain. Asking for pain meds Per nurse, drank clears too quickly this AM and had erika nausea and 1 episode of vomiting Self-limited - Objective Vital Signs: Vital Signs Temperature 98.5 F 03/23/17 13:45 Pulse Rate 93 H 03/23/17 13:45 Respiratory Rate 16 03/23/17 13:45 Blood Pressure 180/102 03/23/17 13:45 O2 Sat by Pulse Oximetry (%) 95 03/23/17 09:00 Constitutional: Well Nourished, Anxious Eyes: Yes: WNL HENT: Yes: Normocephalic Cardiovascular: Yes: Regular Rate and Rhythm Respiratory: Yes: CTA Bilaterally Gastrointestinal Inspection: Yes: WNL ...Auscultate: Yes: Normoactive Bowel Sounds ...Palpate: Yes: Soft, Tenderness (RLQ) ...Percussion: Yes: Dullness Labs: CBC, BMP 03/23/17 06:30 03/23/17 06:00 INR, PTT INR 1.04 (0.82-1.09) 03/21/17 09:30 Hepatic Panel Total Bilirubin 1.0 mg/dL (0.2-1.0) D 03/22/17 05:35 AST 85 U/L (15-37) H 03/22/17 05:35 ALT 60 U/L (12-78) 03/22/17 05:35 Alkaline Phosphatase 106 U/L (45-117) 03/22/17 05:35 Albumin 3.3 g/dl (3.4-5.0) L 03/22/17 05:35 Assessment/Plan Clinically better -labs normalizing CK likely from bowel injury-returning to normal Leukocytosis resolved Can d/c when she tolerates diet and f/u Continue AbRx as opt Consider AC for AF
[2017-03-23] MEDS ORDERED: ONDANSETRON *ODT* 4 MG TABLET SL PRN (15:41)
[2017-03-23] MEDS ORDERED: ONDANSETRON 4 MG/2 ML VIAL IVPB PRN (15:41)
--- NOTE | 2017-03-23 15:46 | PN ---
Progress Note, Physician Chief Complaint: awake alert feeling better - Current Medication List Current Medications: Active Medications Acetaminophen (Ofirmev Injection -) 1,000 mg IVPB Q6H PRN PRN Reason: PAIN Stop: 03/23/17 22:02 Last Admin: 03/23/17 15:31 Dose: 1,000 mg Albuterol Sulfate (Ventolin 0.083% Nebulizer Soln -) 1 amp NEB Q6H PRN PRN Reason: SHORT OF BREATH/WHEEZING Last Admin: 03/22/17 22:45 Dose: 1 amp Amlodipine Besylate (Norvasc -) 10 mg PO DAILY [facility] Last Admin: 03/23/17 10:45 Dose: 10 mg Apixaban (Eliquis -) 2.5 mg PO BID [facility] Clonidine (Catapres -) 0.1 mg PO TID [facility] Docusate Sodium (Colace -) 100 mg PO DAILY [facility] Last Admin: 03/23/17 10:45 Dose: Not Given Ezetimibe (Zetia -) 10 mg PO DAILY [facility] Last Admin: 03/23/17 10:46 Dose: 10 mg Gabapentin (Neurontin -) 800 mg PO TID [facility] Last Admin: 03/23/17 13:57 Dose: 800 mg Metronidazole (Flagyl 500mg Premixed Ivpb -) 100 mls @ 100 mls/hr IVPB Q8H-IV [facility] Last Admin: 03/23/17 10:46 Dose: 100 mls/hr Piperacillin Sod/Tazobactam Sod (Zosyn 2.25gm Ivpb (Pre-Docked)) 50 mls @ 100 mls/hr IVPB Q6H-IV [facility] PRN Reason: Protocol Last Admin: 03/23/17 15:31 Dose: 100 mls/hr Lisinopril (Prinivil) 10 mg PO DAILY [facility] Last Admin: 03/23/17 10:45 Dose: 10 mg Ondansetron HCl (Zofran Injection) 4 mg IVPB Q6H PRN PRN Reason: NAUSEA Ondansetron HCl (Zofran Odt -) 4 mg SL Q6H PRN PRN Reason: NAUSEA AND/OR VOMITING Oxycodone HCl (Roxicodone -) 10 mg PO Q6H PRN PRN Reason: PAIN Phenytoin Sodium (Dilantin -) 100 mg PO TID [facility] Last Admin: 03/23/17 13:57 Dose: 100 mg Pramipexole Dihydrochloride (Mirapex -) 0.25 mg PO TID [facility] Last Admin: 03/23/17 13:57 Dose: 0.25 mg Quetiapine Fumarate (Seroquel -) 100 mg PO HS [facility] Zolpidem Tartrate (Ambien -) 10 mg PO HS PRN PRN Reason: INSOMNIA - Objective Vital Signs: Vital Signs Temperature 98.5 F 03/23/17 13:45 Pulse Rate 93 H 03/23/17 13:45 Respiratory Rate 16 03/23/17 13:45 Blood Pressure 180/102 03/23/17 13:45 O2 Sat by Pulse Oximetry (%) 95 03/23/17 09:00 Constitutional: Yes: Mild Distress Eyes: Yes: WNL HENT: Yes: WNL Neck: Yes: WNL Cardiovascular: Yes: WNL Respiratory: Yes: WNL Gastrointestinal: Yes: Tenderness Genitourinary: Yes: WNL Musculoskeletal: Yes: WNL Extremities: Yes: WNL Edema: No Peripheral Pulses WNL: Yes Integumentary: Yes: WNL Wound/Incision: Yes: Clean/Dry Neurological: Yes: WNL ...Motor Strength: WNL Psychiatric: Yes: WNL Labs: CBC, BMP 03/23/17 06:30 03/23/17 06:00 INR, PTT INR 1.04 (0.82-1.09) 03/21/17 09:30 Problem List - Problems (1) Acute kidney injury Code(s): N17.9 - ACUTE KIDNEY FAILURE, UNSPECIFIED (2) Rhabdomyolysis Code(s): M62.82 - RHABDOMYOLYSIS Qualifiers: Rhabdomyolysis type: non-traumatic Qualified Code(s): M62.82 - Rhabdomyolysis (3) Serotonin syndrome Code(s): G25.79 - OTHER DRUG INDUCED MOVEMENT DISORDERS (4) Cellulitis Code(s): L03.90 - CELLULITIS, UNSPECIFIED Qualifiers: Site of cellulitis of extremity: upper extremity (5) Chest pain Code(s): R07.9 - CHEST PAIN, UNSPECIFIED Qualifiers: Chest pain type: other chest pain Qualified Code(s): R07.89 - Other chest pain; R07.8 - Other chest pain (6) Chronic back pain Code(s): M54.9 - DORSALGIA, UNSPECIFIED G89.29 - OTHER CHRONIC PAIN Qualifiers: Back pain location: low back pain Back pain laterality: bilateral (7) Leg pain Code(s): M79.606 - PAIN IN LEG, UNSPECIFIED Qualifiers: Laterality: bilateral Qualified Code(s): M79.604 - Pain in right leg (8) Leukocytosis Code(s): D72.829 - ELEVATED WHITE BLOOD CELL COUNT, UNSPECIFIED Qualifiers: Leukocytosis type: other Qualified Code(s): D72.828 - Other elevated white blood cell count (9) Ischemic bowel syndrome Code(s): K55.9 - VASCULAR DISORDER OF INTESTINE, UNSPECIFIED Assessment/Plan TIFFANIE BERG DC IVF OOB TO CHAIR ELIQUIS 2.5MG BID FOR ISCHEMIC BOWEL CLONIDINE RESTARTED PAIN CONTROL CHANGE ABX TO AUGMENTIN TOMORROW DC PLANNING TOMORROW IF BP BETTER AND NO FEVER
[2017-03-23] MEDS: cloNIDine HCL 0.1 MG TABLET PO SCH ×2 (17:08→22:00)
--- NOTE | 2017-03-23 17:41 | PN ---
Progress Note, Physician History of Present Illness: Pt seen and examined at bedside. She is awake and alert. She denies shortness of breath. - Current Medication List Current Medications: Active Medications Acetaminophen (Ofirmev Injection -) 1,000 mg IVPB Q6H PRN PRN Reason: PAIN Stop: 03/23/17 22:02 Last Admin: 03/23/17 15:31 Dose: 1,000 mg Albuterol Sulfate (Ventolin 0.083% Nebulizer Soln -) 1 amp NEB Q6H PRN PRN Reason: SHORT OF BREATH/WHEEZING Last Admin: 03/22/17 22:45 Dose: 1 amp Amlodipine Besylate (Norvasc -) 10 mg PO DAILY [facility] Last Admin: 03/23/17 10:45 Dose: 10 mg Apixaban (Eliquis -) 2.5 mg PO BID [facility] Clonidine (Catapres -) 0.1 mg PO TID [facility] Last Admin: 03/23/17 17:08 Dose: 0.1 mg Docusate Sodium (Colace -) 100 mg PO DAILY [facility] Last Admin: 03/23/17 10:45 Dose: Not Given Ezetimibe (Zetia -) 10 mg PO DAILY [facility] Last Admin: 03/23/17 10:46 Dose: 10 mg Gabapentin (Neurontin -) 800 mg PO TID [facility] Last Admin: 03/23/17 13:57 Dose: 800 mg Metronidazole (Flagyl 500mg Premixed Ivpb -) 100 mls @ 100 mls/hr IVPB Q8H-IV [facility] Last Admin: 03/23/17 17:08 Dose: 100 mls/hr Piperacillin Sod/Tazobactam Sod (Zosyn 2.25gm Ivpb (Pre-Docked)) 50 mls @ 100 mls/hr IVPB Q6H-IV [facility] PRN Reason: Protocol Last Admin: 03/23/17 15:31 Dose: 100 mls/hr Lisinopril (Prinivil) 10 mg PO DAILY [facility] Last Admin: 03/23/17 10:45 Dose: 10 mg Ondansetron HCl (Zofran Injection) 4 mg IVPB Q6H PRN PRN Reason: NAUSEA Ondansetron HCl (Zofran Odt -) 4 mg SL Q6H PRN PRN Reason: NAUSEA AND/OR VOMITING Oxycodone HCl (Roxicodone -) 10 mg PO Q6H PRN PRN Reason: PAIN Phenytoin Sodium (Dilantin -) 100 mg PO TID [facility] Last Admin: 03/23/17 13:57 Dose: 100 mg Pramipexole Dihydrochloride (Mirapex -) 0.25 mg PO TID [facility] Last Admin: 03/23/17 13:57 Dose: 0.25 mg Quetiapine Fumarate (Seroquel -) 100 mg PO HS [facility] Zolpidem Tartrate (Ambien -) 10 mg PO HS PRN PRN Reason: INSOMNIA - Objective Vital Signs: Vital Signs Temperature 98.5 F 03/23/17 13:45 Pulse Rate 93 H 03/23/17 13:45 Respiratory Rate 16 03/23/17 13:45 Blood Pressure 180/102 03/23/17 13:45 O2 Sat by Pulse Oximetry (%) 95 03/23/17 09:00 Constitutional: Yes: Calm Eyes: Yes: Conjunctiva Clear HENT: Yes: Atraumatic Neck: Yes: Supple Cardiovascular: Yes: S1, S2 Respiratory: Yes: CTA Bilaterally Gastrointestinal: Yes: Soft Genitourinary: Yes: WNL Musculoskeletal: Yes: WNL Edema: No Neurological: Yes: Oriented Psychiatric: Yes: Oriented Labs: CBC, BMP 03/23/17 06:30 03/23/17 06:00 INR, PTT INR 1.04 (0.82-1.09) 03/21/17 09:30 Problem List - Problems (1) Acute kidney injury Code(s): N17.9 - ACUTE KIDNEY FAILURE, UNSPECIFIED (2) Leukocytosis Code(s): D72.829 - ELEVATED WHITE BLOOD CELL COUNT, UNSPECIFIED Qualifiers: Leukocytosis type: other Qualified Code(s): D72.828 - Other elevated white blood cell count (3) Rhabdomyolysis Code(s): M62.82 - RHABDOMYOLYSIS Qualifiers: Rhabdomyolysis type: non-traumatic Qualified Code(s): M62.82 - Rhabdomyolysis Assessment/Plan Current Medications Generic Name Dose Route Start Last Admin Trade Name Freq PRN Reason Stop Dose Admin Acetaminophen 1,000 mg 03/22/17 22:03 03/23/17 15:31 Ofirmev Injection - IVPB 03/23/17 22:02 1,000 mg Q6H PRN Administration PAIN Albuterol Sulfate 1 amp 03/21/17 22:18 03/22/17 22:45 Ventolin 0.083% Nebulizer Soln - NEB 1 amp Q6H PRN Administration SHORT OF BREATH/WHEEZING Amlodipine Besylate 10 mg 03/23/17 10:00 03/23/17 10:45 Norvasc - PO 10 mg DAILY [facility] Administration Apixaban 2.5 mg 03/23/17 22:00 Eliquis - PO BID [facility] Clonidine 0.1 mg 03/23/17 16:30 03/23/17 17:08 Catapres - PO 0.1 mg TID [facility] Administration Docusate Sodium 100 mg 03/22/17 10:00 03/23/17 10:45 Colace - PO Not Given DAILY [facility] Ezetimibe 10 mg 03/22/17 10:00 03/23/17 10:46 Zetia - PO 10 mg DAILY [facility] Administration Gabapentin 800 mg 03/21/17 22:00 03/23/17 13:57 Neurontin - PO 800 mg TID [facility] Administration Metronidazole 100 mls @ 100 mls/hr 03/21/17 18:00 03/23/17 17:08 Flagyl 500mg Premixed Ivpb - IVPB 100 mls/hr Q8H-IV [facility] Administration Piperacillin Sod/Tazobactam Sod 50 mls @ 100 mls/hr 03/21/17 21:00 03/23/17 15: 31 Zosyn 2.25gm Ivpb (Pre-Docked) IVPB 100 mls/hr Q6H-IV [facility] Administration Protocol Lisinopril 10 mg 03/23/17 10:00 03/23/17 10:45 Prinivil PO 10 mg DAILY [facility] Administration Ondansetron HCl 4 mg 03/23/17 15:41 Zofran Injection IVPB Q6H PRN NAUSEA Ondansetron HCl 4 mg 03/23/17 15:41 Zofran Odt - SL Q6H PRN NAUSEA AND/OR VOMITING Oxycodone HCl 10 mg 03/23/17 15:41 Roxicodone - PO Q6H PRN PAIN Phenytoin Sodium 100 mg 03/21/17 22:00 03/23/17 13:57 Dilantin - PO 100 mg TID [facility] Administration Pramipexole Dihydrochloride 0.25 mg 03/22/17 14:00 03/23/17 13:57 Mirapex - PO 0.25 mg TID [facility] Administration Quetiapine Fumarate 100 mg 03/23/17 22:00 Seroquel - PO HS [facility] Zolpidem Tartrate 10 mg 03/23/17 22:00 Ambien - PO HS PRN INSOMNIA Impression 1. PIPER 2. rhabdo 3. HTN 4. abdominal pain 5. epilepsy Plan - renal function stable - stop fluids - repeat cpk in am - increase of lisinopril - stop losartan, as it can cause rhabdo - cont norvasc - asses for HCTZ in am - will replace potassium - FENa 0.39%
[2017-03-23] MEDS ORDERED: POTASSIUM CHLORIDE TABS 10 MEQ TABLET.ER (FP) PO ONE (17:43)
[2017-03-23] MEDS ORDERED: ZOLPIDEM TARTRATE 5 MG TABLET PO PRN (22:00)
[2017-03-23] MEDS: QUEtiapine FUMARATE 100 MG TABLET (FP) PO SCH (22:00)
[2017-03-23] MEDS: APIXABAN 2.5 MG TABLET PO SCH (22:00)
[2017-03-24] MEDS: METRONIDAZOLE 500 MG PREMIXED 100 ML IVPB SCH ×4 (01:24→20:29)
[2017-03-24] MEDS: PIPERACILLIN/TAZOB 2.25 GM 50 ML IVPB SCH ×4 (03:32→22:07)
[2017-03-24] MEDS: cloNIDine HCL 0.1 MG TABLET PO SCH ×3 (05:53→22:08)
[2017-03-24] MEDS: GABAPENTIN 400 MG CAPSULE (FP) PO SCH ×3 (05:53→22:08)
[2017-03-24] MEDS: PHENYTOIN NA EXTENDED 100 MG CAPSULE (FP) PO SCH ×3 (05:53→22:08)
[2017-03-24] MEDS: PRAMIPEXOLE DIHYDROCHLORIDE 0.25 MG TABLET PO SCH ×3 (05:53→22:08)
[2017-03-24 07:17] LABS: MEAN CELL VOLUME 94.4 fl (80-96); MEAN PLT VOLUME 9.1 fl (7.5-11.1); PLATELET COUNT 201 K/MM3 (134-434); RDW 13.8 % (11.6-15.6); WHITE BLOOD COUNT 7.9 K/mm3 (4.0-10.0)
[2017-03-24 07:18] LABS: BASOPHIL 0.4 % (0-2.0); EOSINOPHIL 4.1 % (0-4.5); MCH 31.7 pg (25.7-33.7); MCHC 33.8 g/dl (32.0-36.0); MEAN CELL VOLUME 93.7 fl (80-96); MEAN PLT VOLUME 9.2 fl (7.5-11.1); NEUTROPHILS 69.2 % (42.8-82.8); PLATELET COUNT 204 K/MM3 (134-434); RDW 13.9 % (11.6-15.6)
[2017-03-24 07:42] LABS: ALBUMIN 3.4 g/dl (3.4-5.0); ANION GAP 12 (8-16); BILIRUBIN,TOTAL 0.3 mg/dL (0.2-1.0); CO2 27 mmol/L (21-32); CREATININE 0.5 mg/dL (0.55-1.02); GLUCOSE,RANDOM 100 mg/dL (74-106); MAGNESIUM 2.3 mg/dL (1.8-2.4); SGOT/AST 25 U/L (15-37); SGPT/ALT 52 U/L (12-78); TOT PROT 6.8 g/dl (6.4-8.2)
[2017-03-24 07:43] LABS: ALK PHOS 107 U/L (45-117)
--- NOTE | 2017-03-24 08:37 | PN ---
Progress Note, Physician History of Present Illness: C/O PAIN IN THR RLQ NO CP OR SOB - Current Medication List Current Medications: Active Medications Albuterol Sulfate (Ventolin 0.083% Nebulizer Soln -) 1 amp NEB Q6H PRN PRN Reason: SHORT OF BREATH/WHEEZING Last Admin: 03/22/17 22:45 Dose: 1 amp Amlodipine Besylate (Norvasc -) 10 mg PO DAILY [facility] Last Admin: 03/23/17 10:45 Dose: 10 mg Apixaban (Eliquis -) 2.5 mg PO BID [facility] Last Admin: 03/23/17 22:00 Dose: 2.5 mg Clonidine (Catapres -) 0.1 mg PO TID [facility] Last Admin: 03/24/17 05:53 Dose: 0.1 mg Docusate Sodium (Colace -) 100 mg PO DAILY [facility] Last Admin: 03/23/17 10:45 Dose: Not Given Ezetimibe (Zetia -) 10 mg PO DAILY [facility] Last Admin: 03/23/17 10:46 Dose: 10 mg Gabapentin (Neurontin -) 800 mg PO TID [facility] Last Admin: 03/24/17 05:53 Dose: 800 mg Metronidazole (Flagyl 500mg Premixed Ivpb -) 100 mls @ 100 mls/hr IVPB Q8H-IV [facility] Last Admin: 03/24/17 01:24 Dose: 100 mls/hr Piperacillin Sod/Tazobactam Sod (Zosyn 2.25gm Ivpb (Pre-Docked)) 50 mls @ 100 mls/hr IVPB Q6H-IV [facility] PRN Reason: Protocol Last Admin: 03/24/17 03:32 Dose: 100 mls/hr Lisinopril (Prinivil) 20 mg PO DAILY [facility] Ondansetron HCl (Zofran Injection) 4 mg IVPB Q6H PRN PRN Reason: NAUSEA Ondansetron HCl (Zofran Odt -) 4 mg SL Q6H PRN PRN Reason: NAUSEA AND/OR VOMITING Oxycodone HCl (Roxicodone -) 10 mg PO Q6H PRN PRN Reason: PAIN Phenytoin Sodium (Dilantin -) 100 mg PO TID [facility] Last Admin: 03/24/17 05:53 Dose: 100 mg Pramipexole Dihydrochloride (Mirapex -) 0.25 mg PO TID [facility] Last Admin: 03/24/17 05:53 Dose: 0.25 mg Quetiapine Fumarate (Seroquel -) 100 mg PO HS [facility] Last Admin: 03/23/17 22:00 Dose: 100 mg Zolpidem Tartrate (Ambien -) 10 mg PO HS PRN PRN Reason: INSOMNIA - Objective Vital Signs: Vital Signs Temperature 98.2 F 03/24/17 05:58 Pulse Rate 93 H 03/24/17 05:58 Respiratory Rate 16 03/24/17 05:58 Blood Pressure 140/101 03/24/17 05:58 O2 Sat by Pulse Oximetry (%) 95 03/23/17 21:00 Cardiovascular: Yes: S1, S2 Respiratory: Yes: Regular, CTA Bilaterally Gastrointestinal: Yes: Normal Bowel Sounds, Soft, Tenderness (RLQ/RT FLANK) Labs: CBC, BMP 03/24/17 06:00 03/24/17 06:00 INR, PTT INR 1.04 (0.82-1.09) 03/21/17 09:30 Problem List - Problems (1) Ischemic bowel syndrome Assessment/Plan: [facility] Code(s): K55.9 - VASCULAR DISORDER OF INTESTINE, UNSPECIFIED (2) Rhabdomyolysis Assessment/Plan: CK IMPROVING Code(s): M62.82 - RHABDOMYOLYSIS Qualifiers: Rhabdomyolysis type: non-traumatic Qualified Code(s): M62.82 - Rhabdomyolysis (3) Abdominal pain Assessment/Plan: TENDERNESS--PT AFEBRILE ABX F/U CT TODAY Code(s): R10.9 - UNSPECIFIED ABDOMINAL PAIN
[2017-03-24] MEDS ORDERED: PT OWN MED DRAWER 7, Y5N ONE ×2 (11:01→21:59)
[2017-03-24] MEDS: DOCUSATE SODIUM 100 MG CAPSULE (FP) PO SCH (11:06)
[2017-03-24] MEDS: KCL 10 MEQ IVPB 100 ML IVPB SCH ×2 (11:06→15:29)
[2017-03-24] MEDS: APIXABAN 2.5 MG TABLET PO SCH ×2 (11:07→22:08)
[2017-03-24] MEDS: EZETIMIBE 10 MG TABLET (FP) PO SCH (11:07)
[2017-03-24] MEDS: amLODIPine BESYLATE 10 MG TABLET (FP) PO SCH (11:07)
[2017-03-24] MEDS: LISINOPRIL 20 MG TABLET (FP) PO SCH (11:07)
[2017-03-24] MEDS: QUEtiapine FUMARATE 100 MG TABLET (FP) PO SCH (22:11)
[2017-03-25] MEDS: METRONIDAZOLE 500 MG PREMIXED 100 ML IVPB SCH ×3 (01:25→17:50)
[2017-03-25] MEDS: PIPERACILLIN/TAZOB 2.25 GM 50 ML IVPB SCH ×4 (03:07→22:46)
[2017-03-25] MEDS ORDERED: PT OWN MED DRAWER 7, Y5N ONE ×3 (06:34→18:16)
[2017-03-25] MEDS: PRAMIPEXOLE DIHYDROCHLORIDE 0.25 MG TABLET PO SCH ×3 (06:37→22:46)
[2017-03-25] MEDS: cloNIDine HCL 0.1 MG TABLET PO SCH ×3 (06:37→22:46)
[2017-03-25] MEDS: PHENYTOIN NA EXTENDED 100 MG CAPSULE (FP) PO SCH ×3 (06:38→22:47)
[2017-03-25] MEDS: GABAPENTIN 400 MG CAPSULE (FP) PO SCH ×3 (06:38→22:46)
[2017-03-25 06:56] LABS: BASOPHIL 0.6 % (0-2.0); EOSINOPHIL 5.8 % (0-4.5); MCH 31.3 pg (25.7-33.7); MCHC 33.1 g/dl (32.0-36.0); MEAN CELL VOLUME 94.6 fl (80-96); MEAN PLT VOLUME 9.5 fl (7.5-11.1); NEUTROPHILS 55.6 % (42.8-82.8); PLATELET COUNT 240 K/MM3 (134-434); WHITE BLOOD COUNT 7.2 K/mm3 (4.0-10.0)
[2017-03-25 07:37] LABS: ALBUMIN 3.4 g/dl (3.4-5.0); ANION GAP 7 (8-16); BILIRUBIN,TOTAL 0.2 mg/dL (0.2-1.0); CO2 30 mmol/L (21-32); COCKROFT - GAULT 111.3755; CREATININE 0.6 mg/dL (0.55-1.02); GLUCOSE,RANDOM 102 mg/dL (74-106); SGOT/AST 19 U/L (15-37); SGPT/ALT 43 U/L (12-78); TOT PROT 6.6 g/dl (6.4-8.2)
[2017-03-25 07:38] LABS: ALK PHOS 106 U/L (45-117)
[2017-03-25] MEDS: DOCUSATE SODIUM 100 MG CAPSULE (FP) PO SCH (10:54)
[2017-03-25] MEDS: LISINOPRIL 20 MG TABLET (FP) PO SCH (10:54)
[2017-03-25] MEDS: amLODIPine BESYLATE 10 MG TABLET (FP) PO SCH (10:54)
[2017-03-25] MEDS: APIXABAN 2.5 MG TABLET PO SCH ×2 (10:54→22:46)
[2017-03-25] MEDS: EZETIMIBE 10 MG TABLET (FP) PO SCH (10:56)
--- NOTE | 2017-03-25 12:07 | PN ---
Progress Note, Physician History of Present Illness: C/O PAIN IS LESS NO CP OR SOB - Current Medication List Current Medications: Active Medications Albuterol Sulfate (Ventolin 0.083% Nebulizer Soln -) 1 amp NEB Q6H PRN PRN Reason: SHORT OF BREATH/WHEEZING Last Admin: 03/22/17 22:45 Dose: 1 amp Amlodipine Besylate (Norvasc -) 10 mg PO DAILY [facility] Last Admin: 03/25/17 10:54 Dose: 10 mg Apixaban (Eliquis -) 2.5 mg PO BID [facility] Last Admin: 03/25/17 10:54 Dose: 2.5 mg Clonidine (Catapres -) 0.2 mg PO TID [facility] Last Admin: 03/25/17 06:37 Dose: 0.2 mg Docusate Sodium (Colace -) 100 mg PO DAILY [facility] Last Admin: 03/25/17 10:54 Dose: 100 mg Ezetimibe (Zetia -) 10 mg PO DAILY [facility] Last Admin: 03/25/17 10:56 Dose: 10 mg Gabapentin (Neurontin -) 800 mg PO TID [facility] Last Admin: 03/25/17 06:38 Dose: 800 mg Metronidazole (Flagyl 500mg Premixed Ivpb -) 100 mls @ 100 mls/hr IVPB Q8H-IV [facility] Last Admin: 03/25/17 10:54 Dose: 100 mls/hr Piperacillin Sod/Tazobactam Sod (Zosyn 2.25gm Ivpb (Pre-Docked)) 50 mls @ 100 mls/hr IVPB Q6H-IV [facility] PRN Reason: Protocol Last Admin: 03/25/17 10:55 Dose: 100 mls/hr Lisinopril (Prinivil) 20 mg PO DAILY [facility] Last Admin: 03/25/17 10:54 Dose: 20 mg Ondansetron HCl (Zofran Injection) 4 mg IVPB Q6H PRN PRN Reason: NAUSEA Ondansetron HCl (Zofran Odt -) 4 mg SL Q6H PRN PRN Reason: NAUSEA AND/OR VOMITING Oxycodone HCl (Roxicodone -) 10 mg PO Q6H PRN PRN Reason: PAIN Phenytoin Sodium (Dilantin -) 100 mg PO TID [facility] Last Admin: 03/25/17 06:38 Dose: 100 mg Pramipexole Dihydrochloride (Mirapex -) 0.25 mg PO TID [facility] Last Admin: 03/25/17 06:37 Dose: 0.25 mg Quetiapine Fumarate (Seroquel -) 100 mg PO HS [facility] Last Admin: 03/24/17 22:11 Dose: 100 mg Zolpidem Tartrate (Ambien -) 10 mg PO HS PRN PRN Reason: INSOMNIA - Objective Vital Signs: Vital Signs Temperature 98.2 F 03/25/17 06:00 Pulse Rate 76 03/25/17 06:00 Respiratory Rate 20 03/25/17 10:00 Blood Pressure 154/95 03/25/17 06:00 O2 Sat by Pulse Oximetry (%) 94 L 03/25/17 10:00 Cardiovascular: Yes: Regular Rate and Rhythm Respiratory: Yes: Regular, CTA Bilaterally Gastrointestinal: Yes: Normal Bowel Sounds, Soft, Tenderness (LESS) Labs: CBC, BMP 03/25/17 06:00 03/25/17 06:00 INR, PTT INR 1.04 (0.82-1.09) 03/21/17 09:30 Problem List - Problems (1) Ischemic bowel syndrome Assessment/Plan: ON [facility] BOARD Code(s): K55.9 - VASCULAR DISORDER OF INTESTINE, UNSPECIFIED (2) Rhabdomyolysis Assessment/Plan: CK IMPROVING Code(s): M62.82 - RHABDOMYOLYSIS Qualifiers: Rhabdomyolysis type: non-traumatic Qualified Code(s): M62.82 - Rhabdomyolysis (3) Abdominal pain Assessment/Plan: TENDERNESS--PT AFEBRILE ABX F/U CT RESULTS IF STABLE WILL ADVANCE DIET Code(s): R10.9 - UNSPECIFIED ABDOMINAL PAIN
[2017-03-25] MEDS: KCL 10 MEQ IVPB 100 ML IVPB SCH ×2 (12:56→16:21)
[2017-03-25] MEDS: oxyCODONE HCL 5 MG TABLET PO PRN ×2 (13:23→22:51)
--- NOTE | 2017-03-25 14:06 | PN ---
GI Progress Note Subjective: Patient still with some abdominal pain but less Had CT earlier - Objective Vital Signs: Vital Signs Temperature 98.1 F 03/25/17 13:50 Pulse Rate 98 H 03/25/17 13:50 Respiratory Rate 20 03/25/17 13:50 Blood Pressure 176/101 03/25/17 13:50 O2 Sat by Pulse Oximetry (%) 94 L 03/25/17 10:00 Constitutional: Well Nourished HENT: Yes: Normocephalic Cardiovascular: Yes: Regular Rate and Rhythm Respiratory: Yes: CTA Bilaterally Gastrointestinal Inspection: Yes: WNL ...Auscultate: Yes: Normoactive Bowel Sounds ...Palpate: Yes: Soft, Tenderness (mild RLQ) ...Percussion: Yes: Dullness Labs: CBC, BMP 03/25/17 06:00 03/25/17 06:00 INR, PTT INR 1.04 (0.82-1.09) 03/21/17 09:30 - ....Imaging Cat Scan: Report Reviewed (Discussed with radiologist (Yaya Crump) No acute findings. Duodenal wall thickening seen on prior exam thought t5o be artifact as no longer there. No diverticulitis.) Assessment/Plan Clinically better -labs normalizing CK likely from bowel injury-returning to normal Leukocytosis resolved Repeat CT negative Diet ordered Can d/c with f/u barring unforeseen circumstances Continue AbRx as opt x 7 days Now on AC for AF-agree.
[2017-03-25] MEDS: QUEtiapine FUMARATE 100 MG TABLET (FP) PO SCH (22:46)
[2017-03-26] MEDS: METRONIDAZOLE 500 MG PREMIXED 100 ML IVPB SCH ×2 (02:16→10:34)
[2017-03-26] MEDS: PIPERACILLIN/TAZOB 2.25 GM 50 ML IVPB SCH ×2 (02:17→10:34)
[2017-03-26] MEDS: cloNIDine HCL 0.1 MG TABLET PO SCH ×3 (05:57→22:13)
[2017-03-26] MEDS: PHENYTOIN NA EXTENDED 100 MG CAPSULE (FP) PO SCH ×3 (05:57→22:13)
[2017-03-26] MEDS: GABAPENTIN 400 MG CAPSULE (FP) PO SCH ×3 (05:58→22:13)
[2017-03-26] MEDS: PRAMIPEXOLE DIHYDROCHLORIDE 0.25 MG TABLET PO SCH ×3 (06:38→22:13)
[2017-03-26] MEDS ORDERED: PT OWN MED DRAWER 7, Y5N ONE ×3 (10:29→22:07)
[2017-03-26] MEDS: LISINOPRIL 20 MG TABLET (FP) PO SCH (10:34)
[2017-03-26] MEDS: DOCUSATE SODIUM 100 MG CAPSULE (FP) PO SCH (10:35)
[2017-03-26] MEDS: APIXABAN 2.5 MG TABLET PO SCH ×2 (10:35→22:12)
[2017-03-26] MEDS: EZETIMIBE 10 MG TABLET (FP) PO SCH (10:35)
[2017-03-26] MEDS: amLODIPine BESYLATE 10 MG TABLET (FP) PO SCH (10:35)
[2017-03-26] MEDS: oxyCODONE HCL 5 MG TABLET PO PRN ×2 (11:07→22:13)
[2017-03-26 12:58] LABS: CALCIUM 9.1 mg/dL (8.5-10.1); COCKROFT - GAULT 95.4635; CREATININE 0.7 mg/dL (0.55-1.02)
[2017-03-26] MEDS: AMOX TR/POT CLAV 875MG/125MG TABLETS (FP) PO SCH (16:34)
[2017-03-26] MEDS: QUEtiapine FUMARATE 100 MG TABLET (FP) PO SCH (22:13)
[2017-03-27] MEDS ORDERED: PT OWN MED DRAWER 7, Y5N ONE ×2 (05:50→09:14)
[2017-03-27] MEDS: oxyCODONE HCL 5 MG TABLET PO PRN ×2 (05:51→12:11)
[2017-03-27] MEDS: GABAPENTIN 400 MG CAPSULE (FP) PO SCH ×2 (05:52→14:30)
[2017-03-27] MEDS: cloNIDine HCL 0.1 MG TABLET PO SCH ×2 (05:52→14:30)
[2017-03-27] MEDS: PHENYTOIN NA EXTENDED 100 MG CAPSULE (FP) PO SCH ×2 (05:52→14:30)
[2017-03-27] MEDS: PRAMIPEXOLE DIHYDROCHLORIDE 0.25 MG TABLET PO SCH ×2 (05:52→14:30)
[2017-03-27] MEDS: DOCUSATE SODIUM 100 MG CAPSULE (FP) PO SCH (09:15)
[2017-03-27] MEDS: APIXABAN 2.5 MG TABLET PO SCH (09:16)
[2017-03-27] MEDS: AMOX TR/POT CLAV 875MG/125MG TABLETS (FP) PO SCH (09:16)
[2017-03-27] MEDS: LISINOPRIL 20 MG TABLET (FP) PO SCH (09:17)
[2017-03-27] MEDS: amLODIPine BESYLATE 10 MG TABLET (FP) PO SCH (09:17)
[2017-03-27] MEDS: EZETIMIBE 10 MG TABLET (FP) PO SCH (09:18)
[2017-03-27] MEDS ORDERED: ALBUTEROL SO4 0.083% IH SOL 2.5 MG/3 ML VIAL.NEB. NEB PRN (13:39)
--- NOTE | 2017-03-27 15:16 | DS ---
Physical Examination Vital Signs: Vital Signs Temperature 98.6 F 03/27/17 09:00 Pulse Rate 85 03/27/17 09:00 Respiratory Rate 20 03/27/17 09:00 Blood Pressure 135/85 03/27/17 09:00 O2 Sat by Pulse Oximetry (%) 98 03/27/17 08:07 Constitutional: Yes: No Distress Eyes: Yes: WNL HENT: Yes: WNL Neck: Yes: WNL Cardiovascular: Yes: WNL Respiratory: Yes: WNL Gastrointestinal: Yes: WNL Musculoskeletal: Yes: WNL Extremities: Yes: WNL Edema: No Peripheral Pulses WNL: Yes Integumentary: Yes: WNL Wound/Incision: Yes: Clean/Dry Neurological: Yes: WNL ...Motor Strength: WNL Psychiatric: Yes: WNL Labs: CBC, BMP 03/25/17 06:00 03/26/17 12:25 Discharge Summary Reason For Visit: SERTOTONIN,RHABDOMYOLYSIS Current Active Problems Abdominal pain (Acute) Acute kidney injury (Acute) Ischemic bowel syndrome (Acute) Leukocytosis (Acute) Rhabdomyolysis (Acute) Serotonin syndrome (Acute) Procedures: Principal: ct abd Other Procedures: echo/sono Hospital Course: admitted for acute ischemic bowel, started on iv heparin and eliquis, treated with iv abx for acute colitis and bright red blood per rectum Condition: Improved - Instructions Diet, Activity, Other Instructions: low salt/low fat Referrals: STAFF,NOT ON [Primary Care Provider] - Disposition: [facility]NS/HOME HEALTH CARE - Home Medications Comprehensive Discharge Medication List: Ambulatory Orders Amlodipine Besylate [Norvasc -] 5 mg PO DAILY 04/11/15 Ezetimibe [Zetia] 10 mg PO DAILY 04/11/15 Gabapentin [Neurontin] 800 mg PO TID 04/11/15 Hydrocodone/Acetaminophen [[place] 10-325 Tablet] 1 each PO DAILY PRN 04/11/15 Phenytoin Na Extended [Dilantin -] 100 mg PO TID 04/11/15 Losartan/Hydrochlorothiazide [Losartan-Hctz 100-25 mg Tablet] 1 each PO DAILY Clonidine HCl 0.1 mg PO TID 03/21/17 Quetiapine Fumarate [Seroquel] 100 tab PO HS 03/21/17 Zolpidem Tartrate [Ambien] 10 mg PO HS 03/21/17
[2017-03-27 15:50] VITALS: BP 136/84; PULSE 90; TEMP 98.7
== END 2017-03-27 16:15 | disposition home health service (06) | DRG 682 ==
LOC: SUPCPDRO 06:53 → JER 06:53 → JERBED 12:23 → J4S 16:40
PROVIDERS: ADMIT Family Medicine; ATTEND Family Medicine
DX: N17.9 Acute kidney failure, unspecified (principal); K55.059 Acute (reversible) ischemia of intestine, part and extent unspecified; M62.82 Rhabdomyolysis; E87.2 Acidosis; I48.91 Unspecified atrial fibrillation; Z79.82 Long term (current) use of aspirin; E11.9 Type 2 diabetes mellitus without complications; I10 Essential (primary) hypertension; E78.00 Pure hypercholesterolemia, unspecified; G40.909 Epilepsy, unspecified, not intractable, without status epilepticus; G43.909 Migraine, unspecified, not intractable, without status migrainosus; Z96.653 Presence of artificial knee joint, bilateral; T50.995A Adverse effect of other drugs, medicaments and biological substances, initial encounter; F41.9 Anxiety disorder, unspecified; R33.9 Retention of urine, unspecified; R21 Rash and other nonspecific skin eruption; G25.79 Other drug induced movement disorders; K29.80 Duodenitis without bleeding
CPT/HCPCS: 36415; 71010-TC; 74176-TC; 76775-TC; 76856-TC; 80048; 80053; 80185; 80307; 81003; 81015; 82009; 82272; 82436; 82550; 82553; 82570; 83605; 83735; 83874; 84100; 84133; 84300; 84484; 85025; 85027; 85610; 85730; 86850; 86900; 86901; 87040; 87045; 87046; 87070; 87086; 87324; 87449; 93005; 93010; 93306-TC; 94010; 94640; 99283-25

== ENCOUNTER 2017-05-14 10:43 | Observation (INO) | payer OTHER ==
[2017-05-14 10:48] VITALS: BMI 28.0
[2017-05-14] MEDS ORDERED: morphine CARPU-JECT 4 MG/1 ML DISP.SYRIN ONE (11:28)
[2017-05-14] MEDS ORDERED: morphine CARPU-JECT 4 MG/1 ML DISP.SYRIN IVPUSH ONE (11:33)
[2017-05-14] MEDS ORDERED: SODIUM CHLORIDE 0.9% 1000 ML INFUS.BAG IV ONE (11:52)
--- NOTE | 2017-05-14 11:53 | PDOC ---
Attending Attestation - Resident Resident Name: Katie Valladares - ED Attending Attestation I have performed the following: I have examined & evaluated the patient, The case was reviewed & discussed with the resident, I agree w/resident's findings & plan, Exceptions are as noted - Physicial Exam PE: 05/14/17 11:52 on exam pt awake alert, lungs clear bilaterally. heart RRR no mrg. abd soft RLQ ttp , inguinal tenderness. no palp hernia, or lymphademopathy. no leg edema. no calf tenderness. nuero awake alert oriented x 3 moves all ext. - Medical Decision Making 05/14/17 11:53 plan differential: hernia, lymphadeniitis or lymphadenopathy, torison or ovarian pathology. plan tvus. possible ct a/p ua. reassess. pain control. <Angélica Edouard - Last Filed: 05/14/17 11:51> - Resident Resident Name: Katie Valladares - HPI HPI: 05/14/17 11:54 The patient is a 61 year old female, with a significant past medical history of AFib(on aspirin, non-compliant with coumadin), diabetes, hypertension, hyperlipidemia, seizures, migraines, and chronic back pain, who presents to the emergency department complaining of right pelvic/groin pain since last night. The patient reports the pain is non radiating and worsened with palpation. Patient reports dysuria, but denies hematuria, frequency, or urgency. She reports some nausea, but denies any vomiting, diarrhea, or constipation. Patient denies any recent travel or sick contacts. Allergies: Iodinated Contrast Media (Oral and IV dye) Past Surgical History: Appendectomy Social History: Former smoker. No ETOH or recreational drug use since her 20's. PCP: Dr. Springer - Medical Decision Making 05/14/17 11:57 Documentation prepared by Basim Ann, acting as associate medical director for Angélica Edouard MD. <Basim Ann - Last Filed: 05/14/17 11:58>
[2017-05-14 11:57] LABS: BASOPHIL 1.5 % (0-2.0); EOSINOPHIL 2.3 % (0-4.5); MCH 32.5 pg (25.7-33.7); MCHC 33.7 g/dl (32.0-36.0); MEAN CELL VOLUME 96.3 fl (80-96); NEUTROPHILS 65.2 % (42.8-82.8); PLATELET COUNT 245 K/MM3 (134-434); RDW 14.3 % (11.6-15.6); WHITE BLOOD COUNT 9.3 K/mm3 (4.0-10.0)
--- NOTE | 2017-05-14 12:19 | PDOC ---
History of Present Illness - General Chief Complaint: Pain, Acute Stated Complaint: PAIN Time Seen by Provider: 05/14/17 11:05 History Source: Patient Exam Limitations: No Limitations - History of Present Illness Initial Comments: 05/14/17 12:20 CC: 1 day h/o RLQ pain Patient is a 61 y.o. female with a PMH of HTN, HLD and spinal stenosis who presents to the ED today c/o 1 day h/o severe "stabbing" RLQ pain. Patient states the pain began suddenly last night starting in groin and subsequently radiating to her lower right abdomen. The pain also became increasingly severe in onset prompting her visit to the ED. Patient notes she had an appendectomy previously and is menopausal since age 49. Patient also c/o associated nausea , however denies any vomiting, fever, shortness of breath or chest pain. Timing/Duration: 24 hours Severity: severe Past History - Past Medical History Allergies/Adverse Reactions: Allergies Allergy/AdvReac Type Severity Reaction Status Date / Time Iodinated Contrast Media - Allergy Verified 05/14/17 10:48 Oral and IV DYE Allergy Uncoded 05/14/17 10:48 Home Medications: Ambulatory Orders Gabapentin [Neurontin] 800 mg PO TID 04/11/15 Hydrocodone/Acetaminophen [[place] 10-325 Tablet] 1 each PO DAILY PRN 04/11/15 Phenytoin Na Extended [Dilantin -] 100 mg PO TID 04/11/15 Losartan/Hydrochlorothiazide [Losartan-Hctz 100-25 mg Tablet] 1 each PO DAILY Quetiapine Fumarate [Seroquel] 100 tab PO HS 03/21/17 Amlodipine Besylate [Norvasc -] 10 mg PO DAILY #30 tablet 03/27/17 Clonidine HCl [Catapres -] 0.2 mg PO TID tablet 03/27/17 Ezetimibe [Zetia -] 10 mg PO DAILY tablet 03/27/17 Lisinopril [Prinivil] 20 mg PO DAILY tablet 03/27/17 Pramipexole Dihydrochloride [Mirapex -] 0.25 mg PO TID tablet 03/27/17 Zolpidem Tartrate [Ambien] 10 mg PO HS PRN #0 tablet MDD 1 03/27/17 Sulfamethoxazole/Trimethoprim [Bactrim Ds Tablet] 1 each PO BID #10 tablet 05/14 Cardiac Disorders: Yes (afib) Diabetes: Yes GI Disorders: Yes (COLITIS) HTN: Yes Hypercholesterolemia: Yes Suicide Attempt (Hx): No Seizures: Yes - Surgical History Abdominal Surgery: Yes (ECTOPIC PREGNANY) Appendectomy: Yes Orthopedic Surgery: Yes (both knee replacement) - Immunization History Immunization Up to Date: Yes - Psycho/Social/Smoking Cessation Hx Anxiety: No Suicidal Ideation: No Smoking Status: No Smoking History: Never smoked Years of Tobacco Use: 10 Have you smoked in the past 12 months: No Number of Cigarettes Smoked Daily: 0 Information on smoking cessation initiated: No Hx Alcohol Use: No Drug/Substance Use Hx: No Substance Use Type: None Hx Substance Use Treatment: No Review of Systems - Review of Systems Constitutional: No: Chills, Diaphoresis, Fever, Loss of Appetite HEENTM: No: Blurred Vision, Tinnitus, Hearing Loss, Throat Pain, Difficulty Swallowing Respiratory: No: Cough, Orthopnea, Shortness of Breath, Wheezing Cardiac (ROS): No: Chest Pain, Edema, Lightheadedness, Palpitations ABD/GI: Yes: Nausea, Abdominal cramping. No: Diarrhea, Vomiting : Yes: Pain ("stabbing" pain in groin, radiates to right lower abdomen). No: Burning, Dysuria, Frequency, Urgency Musculoskeletal: No: Back Pain, Joint Swelling, Muscle Pain, Muscle Weakness Integumentary: Yes: Bruising (B/L LE bruising) Neurological: No: Headache, Numbness, Tingling, Weakness Psychiatric: No: Anxiety, Depression *Physical Exam - Vital Signs Last Vital Signs Temp Pulse Resp BP Pulse Ox 98.6 F 110 H 18 145/100 98 05/14/17 10:46 05/14/17 10:46 05/14/17 10:46 05/14/17 10:46 05/14/17 10:46 - Physical Exam General Appearance: Yes: Nourished, Appropriately Dressed HEENT: positive: EOMI, TASHA Neck: positive: Trachea midline, Supple Respiratory/Chest: positive: Lungs Clear, Normal Breath Sounds Cardiovascular: positive: Regular Rhythm, Regular Rate, S1, S2 Gastrointestinal/Abdominal: positive: Normal Bowel Sounds, Soft, Tenderness, Other (RLQ TTP to superficial and deep palpation) Musculoskeletal: positive: Normal Inspection Extremity: positive: Normal Capillary Refill, Normal Inspection Integumentary: positive: Normal Color, Dry, Warm Neurologic: positive: career specialist II-XII NML intact, Fully Oriented, Alert ED Treatment Course - LABORATORY CBC & Chemistry Diagram: 05/14/17 11:31 05/14/17 11:31 - ADDITIONAL ORDERS Additional order review: 05/14/17 11:31 RBC 3.93 MCV 96.3 H MCHC 33.7 RDW 14.3 MPV 10.0 Neutrophils % 65.2 Lymphocytes % 24.0 Monocytes % 7.0 Eosinophils % 2.3 Basophils % 1.5 - RADIOLOGY Radiology Studies Ordered: Category Date Time Status TRANSVAGINAL ULTRASOUND US [US] Stat Ultrasound 05/14/17 11:45 Ordered - Medications Given in the ED: ED Medications Discontinued Medications Generic Name Dose Route Start Last Admin Trade Name Freq PRN Reason Stop Dose Admin Morphine Sulfate 4 mg 05/14/17 11:33 05/14/17 11:38 Morphine Injection - IVPUSH 05/14/17 11:34 4 mg ONCE ONE Administration Sodium Chloride 1,000 ml 05/14/17 11:52 05/14/17 11:58 Normal Saline - IV 05/14/17 11:53 1,000 ml ONCE ONE Administration Medical Decision Making - Medical Decision Making 05/14/17 12:28 Patient is a 61 y.o. female who presents c/o acute onset of R groin and abdominal pain. On PE, patient is hemodynamically stable and exhibits TTP. No appreciable hernia or inguinal lymphadenopathy. Differential diagnosis includes : inguinal hernia, ovarian torsion, lymphadenitis. CT Abdomen, Transvaginal U/ S both unremarkable. UA showed 1+ Leukocyte Esterase, 1+ Blood. PLAN 1. Admit as per Dr. Brennan's instruction 2. Bactrim, Ceftriaxone *DC/Admit/Observation/Transfer Diagnosis at time of Disposition: Urinary tract bacterial infections Abdominal pain Qualifiers: Abdominal location: right lower quadrant Qualified Code(s): R10.31 - Right lower quadrant pain - Discharge Dispostion Admit: Yes - Prescriptions Prescriptions: Sulfamethoxazole/Trimethoprim [Bactrim Ds Tablet] 1 each PO BID #10 tablet - Referrals Referrals: Yariel Springer [Primary Care Provider] - - Attestations Physician Attestion: 05/14/17 14:49 I, Dr. Katie Valladares, attest that this document has been prepared under my direction and personally reviewed by me in its entirety. I further attest, that it accurately reflects all work, treatment, procedures and medical decision -making performed by me.
[2017-05-14 12:27] LABS: ALBUMIN 3.9 g/dl (3.4-5.0); ALK PHOS 124 U/L (45-117); ANION GAP 6 (8-16); BILIRUBIN,TOTAL 0.2 mg/dL (0.2-1.0); CALCIUM 9.9 mg/dL (8.5-10.1); CO2 33 mmol/L (21-32); CREATININE 0.9 mg/dL (0.55-1.02); GLUCOSE,RANDOM 125 mg/dL (74-106); SGOT/AST 15 U/L (15-37); SGPT/ALT 26 U/L (12-78); TOT PROT 7.5 g/dl (6.4-8.2)
[2017-05-14] MEDS ORDERED: OXYCODONE/APAP 5/325MG COMBO TABLET PO ONE ×2 (14:12→14:47)
[2017-05-14 14:13] LABS: URINE APPEARANCE CLEAR; URINE BILIRUBIN NEGATIVE (NEGATIVE); URINE BLOOD NEGATIVE (NEGATIVE); URINE COLOR YELLOW; URINE GLUCOSE (UA) 1+ (NEGATIVE); URINE KETONE TRACE (NEGATIVE); URINE NITRITE NEGATIVE (NEGATIVE); URINE UROBILINOGEN NEGATIVE mg/dL (0.2-1.0)
[2017-05-14 14:18] LABS: URINE LEUK ESTERASE 1+ (NEGATIVE); URINE PROTEIN 1+ (NEGATIVE)
[2017-05-14 14:21] LABS: URINE MUCUS RARE; URINE RBC 7 /hpf (0-3); URINE WBC 1 /hpf (3-5)
[2017-05-14] MEDS ORDERED: OXYCODONE/APAP 5/325MG COMBO TABLET ONE ×2 (14:32→14:33)
[2017-05-14] MEDS ORDERED: CEFTRIAXONE 1 GM in DEXTROSE 5%-WATER - 50 ML IVPB ONE (14:45)
[2017-05-14] MEDS ORDERED: CEFTRIAXONE 50 ML ONE (14:56)
[2017-05-14] MEDS ORDERED: HYDROmorphone HCL CARPU-JECT 1 MG/1 ML DISP.SYRIN IVPUSH PRN (22:19)
[2017-05-14] MEDS: PHENYTOIN NA EXTENDED 100 MG CAPSULE (FP) PO SCH (23:02)
[2017-05-14] MEDS: cloNIDine HCL 0.1 MG TABLET PO SCH (23:02)
[2017-05-14] MEDS: PRAMIPEXOLE DIHYDROCHLORIDE 0.25 MG TABLET PO SCH (23:02)
[2017-05-14] MEDS: GABAPENTIN 400 MG CAPSULE (FP) PO SCH (23:03)
[2017-05-14] MEDS: D5-1/2NS+20 MEQ KCL - 1,000 ML IV SCH (23:06)
[2017-05-14] MEDS: ZOLPIDEM TARTRATE 5 MG TABLET PO PRN (23:08)
[2017-05-14] MEDS: QUEtiapine FUMARATE 100 MG TABLET (FP) PO SCH (23:10)
[2017-05-15] MEDS ORDERED: cloNIDine HCL 0.1 MG TABLET PO SCH (06:00)
[2017-05-15] MEDS ORDERED: PRAMIPEXOLE DIHYDROCHLORIDE 0.25 MG TABLET PO SCH (06:00)
[2017-05-15] MEDS ORDERED: PHENYTOIN NA EXTENDED 100 MG CAPSULE (FP) PO SCH (06:00)
[2017-05-15] MEDS ORDERED: GABAPENTIN 400 MG CAPSULE (FP) PO SCH (06:00)
[2017-05-15] MEDS: cloNIDine HCL 0.1 MG TABLET PO SCH ×3 (06:15→22:11)
[2017-05-15] MEDS: PHENYTOIN NA EXTENDED 100 MG CAPSULE (FP) PO SCH ×3 (06:15→22:10)
[2017-05-15] MEDS: PRAMIPEXOLE DIHYDROCHLORIDE 0.25 MG TABLET PO SCH ×3 (06:16→22:20)
[2017-05-15] MEDS: GABAPENTIN 400 MG CAPSULE (FP) PO SCH ×3 (06:16→22:11)
[2017-05-15 08:10] LABS: BASOPHIL 0.8 % (0-2.0); EOSINOPHIL 3.4 % (0-4.5); MCH 32.1 pg (25.7-33.7); MCHC 33.1 g/dl (32.0-36.0); MEAN CELL VOLUME 97.1 fl (80-96); MEAN PLT VOLUME 10.1 fl (7.5-11.1); NEUTROPHILS 52.7 % (42.8-82.8); PLATELET COUNT 181 K/MM3 (134-434); RDW 14.2 % (11.6-15.6); WHITE BLOOD COUNT 6.4 K/mm3 (4.0-10.0)
[2017-05-15 08:17] LABS: ALBUMIN 3.2 g/dl (3.4-5.0); AMYLASE 63 U/L (25-115); ANION GAP 7 (8-16); CALCIUM 8.9 mg/dL (8.5-10.1); CO2 31 mmol/L (21-32); CREATININE 0.7 mg/dL (0.55-1.02); GLUCOSE,RANDOM 98 mg/dL (74-106); SGOT/AST 11 U/L (15-37); SGPT/ALT 22 U/L (12-78)
[2017-05-15 08:21] LABS: ALK PHOS 102 U/L (45-117); BILIRUBIN,TOTAL 0.3 mg/dL (0.2-1.0); TOT PROT 6.4 g/dl (6.4-8.2); TROPONIN I < 0.02 ng/ml (0.00-0.05)
[2017-05-15] MEDS ORDERED: PT OWN MED DRAWER 7, Y5N ONE ×2 (09:26→14:34)
[2017-05-15] MEDS: HEPARIN NA (PORCINE) 5,000 UNITS/ML 1ML VIAL SQ SCH ×2 (09:31→22:11)
[2017-05-15] MEDS: LOSARTAN 50MG/HCTZ 12.5MG 1 TAB (FP) PO SCH (09:31)
[2017-05-15] MEDS: amLODIPine BESYLATE 10 MG TABLET (FP) PO SCH (09:31)
[2017-05-15] MEDS: EZETIMIBE 10 MG TABLET (FP) PO SCH (09:31)
[2017-05-15] MEDS: LISINOPRIL 20 MG TABLET (FP) PO SCH (09:31)
--- NOTE | 2017-05-15 15:07 | HP ---
Admitting History and Physical - Primary Care Physician PCP: Leela Brennan - Admission Chief Complaint: UTI/ABD PAIN History of Present Illness: Patient is a 61 y.o. female with a PMH of HTN, HLD and spinal stenosis who presents to the ED today c/o 1 day h/o severe "stabbing" RLQ pain. Patient states the pain began suddenly last night starting in groin and subsequently radiating to her lower right abdomen. The pain also became increasingly severe in onset prompting her visit to the ED. Patient notes she had an appendectomy previously and is menopausal since age 49. Patient also c/o associated nausea , however denies any vomiting, fever, shortness of breath or chest pain. 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 Cardiovascular: Yes: CAD, HTN, Hyperlipdemia - Smoking History Smoking history: Never smoked Have you smoked in the past 12 months: No Aproximately how many cigarettes per day: 0 - Alcohol/Substance Use Hx Alcohol Use: No - Social History ADL: Independent History of Recent Travel: No Home Medications - Allergies Allergies/Adverse Reactions: Allergies Allergy/AdvReac Type Severity Reaction Status Date / Time Iodinated Contrast Media - Allergy Verified 05/14/17 10:48 Oral and IV DYE Allergy Uncoded 05/14/17 10:48 - Home Medications Home Medications: Ambulatory Orders Gabapentin [Neurontin] 800 mg PO TID 04/11/15 Hydrocodone/Acetaminophen [[place] 10-325 Tablet] 1 each PO DAILY PRN 04/11/15 Phenytoin Na Extended [Dilantin -] 100 mg PO TID 04/11/15 Losartan/Hydrochlorothiazide [Losartan-Hctz 100-25 mg Tablet] 1 each PO DAILY Quetiapine Fumarate [Seroquel] 100 tab PO HS 03/21/17 Amlodipine Besylate [Norvasc -] 10 mg PO DAILY #30 tablet 03/27/17 Clonidine HCl [Catapres -] 0.2 mg PO TID tablet 03/27/17 Ezetimibe [Zetia -] 10 mg PO DAILY tablet 03/27/17 Lisinopril [Prinivil] 20 mg PO DAILY tablet 03/27/17 Pramipexole Dihydrochloride [Mirapex -] 0.25 mg PO TID tablet 03/27/17 Zolpidem Tartrate [Ambien] 10 mg PO HS PRN #0 tablet MDD 1 03/27/17 Sulfamethoxazole/Trimethoprim [Bactrim Ds Tablet] 1 each PO BID #10 tablet 05/14 Review of Systems - Review of Systems Constitutional: reports: Loss of Appetite Eyes: reports: No Symptoms HENT: reports: No Symptoms Neck: reports: No Symptoms Cardiovascular: reports: No Symptoms Respiratory: reports: No Symptoms Gastrointestinal: reports: Abdominal Pain, Indigestion Genitourinary: reports: Frequency Musculoskeletal: reports: Muscle Cramps Integumentary: reports: No Symptoms Neurological: reports: Pre-Existing Deficit Endocrine: reports: No Symptoms Hematology/Lymphatic: reports: No Symptoms Psychiatric: reports: No Symptoms Physical Examination Vital Signs: Vital Signs Temperature 99 F 05/15/17 09:00 Pulse Rate 92 H 05/15/17 09:00 Respiratory Rate 20 05/15/17 11:00 Blood Pressure 142/100 05/15/17 09:00 O2 Sat by Pulse Oximetry (%) 97 05/15/17 11:00 Constitutional: Yes: Mild Distress Eyes: Yes: WNL HENT: Yes: WNL Neck: Yes: WNL Cardiovascular: Yes: WNL Respiratory: Yes: WNL Gastrointestinal: Yes: Tenderness Renal/: Yes: WNL Musculoskeletal: Yes: Back Pain, Muscle Weakness Extremities: Yes: WNL Edema: No Peripheral Pulses WNL: Yes Integumentary: Yes: Bruising Wound/Incision: Yes: Clean/Dry Neurological: Yes: WNL ...Motor Strength: WNL Psychiatric: Yes: WNL Labs: CBC, BMP 05/15/17 06:55 05/15/17 06:55 Imaging - Results Cat Scan: Report Reviewed Problem List - Problems (1) Abdominal pain Code(s): R10.9 - UNSPECIFIED ABDOMINAL PAIN Qualifiers: Abdominal location: right lower quadrant Qualified Code(s): R10.31 - Right lower quadrant pain (2) Urinary tract bacterial infections Code(s): N39.0 - URINARY TRACT INFECTION, SITE NOT SPECIFIED A49.9 - BACTERIAL INFECTION, UNSPECIFIED Assessment/Plan IV ABX GI EVAL PUPURIC RASH? DERMATITIS VS TTP? OUTPATIENT DERM CONSULT
[2017-05-15] MEDS ORDERED: CEFTRIAXONE 2 GM in DEXTROSE 5%-WATER 100 ML IVPB ONE (15:09)
[2017-05-15] MEDS ORDERED: DEXTROSE 5%-WATER 100 ML IVPB ONE (15:24)
--- NOTE | 2017-05-15 15:51 | CONSULT ---
Consult Consult Specialty:: infectious diseases Reason for Consultation:: uti,rash on the legs - History of Present Illness Chief Complaint: pain rt lower quadrant and rash on the legs History of Present Illness: 61 y.o. female with a PMH of HTN, HLD and spinal stenosis who presents tadmitted because of rlq pain which began a day ago pain became very severe which was associated with nausea and patient came to the hospital. patient also mentions that she started developing rash on the legs couple of days back before the abd pain she also had similar type of rash/spots on the legs which are painful previously but they always disappeared she mentioned that last time she was diagnosed with colitits she had this rash which disappeared in couple of days currently her rlq pain is main issues and also the rash which are present are tender nausea was present,but denies fever or dirrhoea patient has had appendectomy done also on work up looks like patient has uti patient has got one dose of ceftriaxone - History Source History Provided By: Patient Limitations to Obtaining History: No Limitations - 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, 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, 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 Cardio/Vascular: Yes: CAD, HTN, Hyperlipdemia - Alcohol/Substance Use Hx Alcohol Use: No - Smoking History Smoking history: Never smoked Have you smoked in the past 12 months: No Aproximately how many cigarettes per day: 0 - Social History ADL: Independent History of Recent Travel: No Home Medications - Allergies Allergies/Adverse Reactions: Allergies Allergy/AdvReac Type Severity Reaction Status Date / Time Iodinated Contrast Media - Allergy Verified 05/14/17 10:48 Oral and IV DYE Allergy Uncoded 05/14/17 10:48 - Home Medications Home Medications: Ambulatory Orders Gabapentin [Neurontin] 800 mg PO TID 04/11/15 Hydrocodone/Acetaminophen [[place] 10-325 Tablet] 1 each PO DAILY PRN 04/11/15 Phenytoin Na Extended [Dilantin -] 100 mg PO TID 04/11/15 Losartan/Hydrochlorothiazide [Losartan-Hctz 100-25 mg Tablet] 1 each PO DAILY Quetiapine Fumarate [Seroquel] 100 tab PO HS 03/21/17 Amlodipine Besylate [Norvasc -] 10 mg PO DAILY #30 tablet 03/27/17 Clonidine HCl [Catapres -] 0.2 mg PO TID tablet 03/27/17 Ezetimibe [Zetia -] 10 mg PO DAILY tablet 03/27/17 Lisinopril [Prinivil] 20 mg PO DAILY tablet 03/27/17 Pramipexole Dihydrochloride [Mirapex -] 0.25 mg PO TID tablet 03/27/17 Zolpidem Tartrate [Ambien] 10 mg PO HS PRN #0 tablet MDD 1 03/27/17 Sulfamethoxazole/Trimethoprim [Bactrim Ds Tablet] 1 each PO BID #10 tablet 05/14 Review of Systems - Review of Systems Constitutional: reports: Other Eyes: reports: No Symptoms HENT: reports: No Symptoms Neck: reports: No Symptoms Cardiovascular: reports: No Symptoms Respiratory: reports: No Symptoms Gastrointestinal: reports: Abdominal Pain (ruq) Genitourinary: reports: No Symptoms Musculoskeletal: reports: No Symptoms Integumentary: reports: Rash, Other Neurological: reports: No Symptoms Endocrine: reports: No Symptoms Hematology/Lymphatic: reports: No Symptoms Psychiatric: reports: No Symptoms Physical Exam Vital Signs: Vital Signs Temperature 98.0 F 05/15/17 15:13 Pulse Rate 85 05/15/17 15:13 Respiratory Rate 18 05/15/17 15:13 Blood Pressure 112/80 05/15/17 15:13 O2 Sat by Pulse Oximetry (%) 97 05/15/17 11:00 Constitutional: Yes: Calm, Mild Distress Eyes: Yes: Conjunctiva Clear HENT: Yes: Atraumatic Neck: Yes: Supple, Trachea Midline Cardiovascular: Yes: Regular Rate and Rhythm Respiratory: Yes: Regular, CTA Bilaterally Gastrointestinal: Yes: Soft, Tenderness (rlq) Musculoskeletal: Yes: WNL Extremities: Yes: Other Integumentary: Yes: Rash (tender present can palpate the rash) Neurological: Yes: Alert, Oriented Psychiatric: Yes: Alert, Oriented Labs: CBC, BMP 05/15/17 06:55 05/15/17 06:55 Assessment/Plan after evaluating and looking at the rash i ahve a strong suspicion that this probably is a autoimmune phenomenon and if it is related to GI pathology also patient has uti the other thing this could be erythema nodusum which again indicates some pathology uti rash abd pain colitis plan await for gi patient can be given oral abx we can give her levaquin monitor the rash and its association with colitis rest as per primary
[2017-05-15] MEDS: HYDROmorphone HCL CARPU-JECT 1 MG/1 ML DISP.SYRIN IVPB PRN ×2 (16:17→22:12)
--- NOTE | 2017-05-15 16:50 | EKG ---
Test Reason : Blood Pressure : / mmHG Vent. Rate : 087 BPM Atrial Rate : 087 BPM P-R Int : 140 ms QRS Dur : 086 ms QT Int : 396 ms P-R-T Axes : 036 044 023 degrees QTc Int : 476 ms NORMAL SINUS RHYTHM POSSIBLE LEFT ATRIAL ENLARGEMENT LEFT VENTRICULAR HYPERTROPHY ABNORMAL ECG WHEN COMPARED WITH ECG OF 21-MAR-2017 15:26, NO SIGNIFICANT CHANGE WAS FOUND Confirmed by JULES PETER MD ([id number]) on 05/15/2017 4:50:08 PM Referred By: Confirmed By:JULES PETER MD
[2017-05-15] MEDS: AMOX TR/POT CLAV 875MG/125MG TABLETS (FP) PO SCH (17:21)
--- NOTE | 2017-05-15 21:32 | CON.GI ---
Consult Consult Specialty:: GI Referred by:: Dr Brennan Reason for Consultation:: Abdominal pain - History of Present Illness Chief Complaint: Patient with acute onset severe RLQ pain History of Present Illness: 61 F with h/o HTN, HLD admitted with 1 day acute onset RLQ pain. States pain was 10/10 at the time. She is s/p AP and had now other constitutional symptoms at the time. At this time feeling better. I asked if anything exacerbated or relieved the pain. She stated that the pain was positional and she felt relief with change of position. 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 Cardio/Vascular: Yes: CAD, HTN, Hyperlipdemia - Alcohol/Substance Use Hx Alcohol Use: No - Smoking History Smoking history: Never smoked Have you smoked in the past 12 months: No Aproximately how many cigarettes per day: 0 - Social History ADL: Independent History of Recent Travel: No Home Medications - Allergies Allergies/Adverse Reactions: Allergies Allergy/AdvReac Type Severity Reaction Status Date / Time Iodinated Contrast Media - Allergy Verified 05/14/17 10:48 Oral and IV DYE Allergy Uncoded 05/14/17 10:48 - Home Medications Home Medications: Ambulatory Orders Gabapentin [Neurontin] 800 mg PO TID 04/11/15 Hydrocodone/Acetaminophen [[place] 10-325 Tablet] 1 each PO DAILY PRN 04/11/15 Phenytoin Na Extended [Dilantin -] 100 mg PO TID 04/11/15 Losartan/Hydrochlorothiazide [Losartan-Hctz 100-25 mg Tablet] 1 each PO DAILY Quetiapine Fumarate [Seroquel] 100 tab PO HS 03/21/17 Amlodipine Besylate [Norvasc -] 10 mg PO DAILY #30 tablet 03/27/17 Clonidine HCl [Catapres -] 0.2 mg PO TID tablet 03/27/17 Ezetimibe [Zetia -] 10 mg PO DAILY tablet 03/27/17 Lisinopril [Prinivil] 20 mg PO DAILY tablet 03/27/17 Pramipexole Dihydrochloride [Mirapex -] 0.25 mg PO TID tablet 03/27/17 Zolpidem Tartrate [Ambien] 10 mg PO HS PRN #0 tablet MDD 1 03/27/17 Sulfamethoxazole/Trimethoprim [Bactrim Ds Tablet] 1 each PO BID #10 tablet 05/14 Amox-Tr/K Cl [Augmentin 875-125mg Tablet -] 1 tab PO BID@0800,1730 #10 tablet Physical Exam-GI Vital Signs: Vital Signs Temperature 98.1 F 05/15/17 17:25 Pulse Rate 86 05/15/17 17:25 Respiratory Rate 18 05/15/17 17:25 Blood Pressure 110/61 05/15/17 17:25 O2 Sat by Pulse Oximetry (%) 97 05/15/17 11:00 Constitutional: Yes: Well Nourished, No Distress Cardiovascular: Yes: Regular Rate and Rhythm Respiratory: Yes: Regular Gastrointestinal Inspection: Yes: WNL ...Auscultate: Yes: Normoactive Bowel Sounds ...Palpate: Yes: Tenderness (R inguinal area, with shotty inguinal nodes noted. There is also tenderness below the scar from her appendectomy.) Extremities: Yes: Other (Numerous hyperpigmented lesions. Patient states a few days ago, these were erythematous and painful to the touch.) Labs: CBC, BMP 05/15/17 06:55 05/15/17 06:55 Imaging - Results Cat Scan: Report Reviewed (No relevant findings) Assessment/Plan Patient with onset inguinal pain, now with mild inguinal adenopathy and tenderness in the area. She also has tenderness below the AP scar. She appears to have E nodusum based on her story and the lesions on her legs. She has no diarrhea and no finding on CT suggesting colitis making that possibility minimal. She denies vaginal discharge. Labs are normal and no significant finding on CT. Consider MRI of pelvis. Consider colonoscopy which can be done as opt.
[2017-05-15] MEDS ORDERED: QUEtiapine FUMARATE 100 MG TABLET (FP) PO SCH (22:00)
[2017-05-15] MEDS: D5-1/2NS+20 MEQ KCL - 1,000 ML IV SCH (22:08)
[2017-05-15] MEDS: ZOLPIDEM TARTRATE 5 MG TABLET PO PRN (22:10)
[2017-05-15] MEDS: QUEtiapine FUMARATE 100 MG TABLET (FP) PO SCH (22:11)
[2017-05-16] MEDS: GABAPENTIN 400 MG CAPSULE (FP) PO SCH (05:54)
[2017-05-16] MEDS: cloNIDine HCL 0.1 MG TABLET PO SCH (05:54)
[2017-05-16] MEDS: PHENYTOIN NA EXTENDED 100 MG CAPSULE (FP) PO SCH (05:54)
[2017-05-16] MEDS: PRAMIPEXOLE DIHYDROCHLORIDE 0.25 MG TABLET PO SCH (05:59)
--- NOTE | 2017-05-16 07:47 | DS ---
Physical Examination Vital Signs: Vital Signs Temperature 98.1 F 05/16/17 06:51 Pulse Rate 69 05/16/17 06:51 Respiratory Rate 20 05/16/17 06:51 Blood Pressure 105/63 05/16/17 06:51 O2 Sat by Pulse Oximetry (%) 97 05/15/17 11:00 Constitutional: Yes: No Distress Eyes: Yes: WNL HENT: Yes: WNL Neck: Yes: WNL Cardiovascular: Yes: WNL Respiratory: Yes: WNL Gastrointestinal: Yes: WNL Renal/: Yes: WNL Musculoskeletal: Yes: Back Pain, Muscle Pain, Muscle Weakness Extremities: Yes: WNL Edema: No Peripheral Pulses WNL: Yes Integumentary: Yes: Bruising, Rash Wound/Incision: Yes: Clean/Dry Neurological: Yes: WNL ...Motor Strength: WNL Psychiatric: Yes: WNL Labs: CBC, BMP 05/15/17 06:55 05/15/17 06:55 Discharge Summary Reason For Visit: URINARY TRACT BACTERIAL INFECTION,ABD PAIN Current Active Problems Abdominal pain (Acute) Urinary tract bacterial infections (Acute) Procedures: Principal: ct abdomen/pelvis Other Procedures: sono pelvic/vaginal Hospital Course: admitted for observation and abd pain was worked up, gi eval inconclusive, to have colonoscopy as outpatient, rash likely erythema nodusum, autoimmune workup as outpatient, no need to be admitted will continue workup as outpatient. treated for uti with iv ceftraixone, change to augmentin po as outpatient. Condition: Improved - Instructions Diet, Activity, Other Instructions: see dr soto in 1-2 days low sodium Referrals: Yariel Soto [Primary Care Provider] - Disposition: HOME - Home Medications Comprehensive Discharge Medication List: Ambulatory Orders Gabapentin [Neurontin] 800 mg PO TID 04/11/15 Hydrocodone/Acetaminophen [[place] 10-325 Tablet] 1 each PO DAILY PRN 04/11/15 Phenytoin Na Extended [Dilantin -] 100 mg PO TID 04/11/15 Losartan/Hydrochlorothiazide [[place]artan-Hctz 100-25 mg Tablet] 1 each PO DAILY Quetiapine Fumarate [Seroquel] 100 tab PO HS 03/21/17 Amlodipine Besylate [Norvasc -] 10 mg PO DAILY #30 tablet 03/27/17 Clonidine HCl [Catapres -] 0.2 mg PO TID tablet 03/27/17 Ezetimibe [Zetia -] 10 mg PO DAILY tablet 03/27/17 Lisinopril [Prinivil] 20 mg PO DAILY tablet 03/27/17 Pramipexole Dihydrochloride [Mirapex -] 0.25 mg PO TID tablet 03/27/17 Zolpidem Tartrate [Ambien] 10 mg PO HS PRN #0 tablet MDD 1 03/27/17 Sulfamethoxazole/Trimethoprim [Bactrim Ds Tablet] 1 each PO BID #10 tablet 05/14 Amox-Tr/K Cl [Augmentin 875-125mg Tablet -] 1 tab PO BID@0800,1730 #10 tablet
[2017-05-16 08:54] VITALS: BP 101/67; PULSE 71; TEMP 98
[2017-05-16] MEDS: amLODIPine BESYLATE 10 MG TABLET (FP) PO SCH (09:16)
[2017-05-16] MEDS: AMOX TR/POT CLAV 875MG/125MG TABLETS (FP) PO SCH (09:16)
[2017-05-16] MEDS: LOSARTAN 50MG/HCTZ 12.5MG 1 TAB (FP) PO SCH (09:16)
[2017-05-16] MEDS: EZETIMIBE 10 MG TABLET (FP) PO SCH (09:16)
[2017-05-16] MEDS: LISINOPRIL 20 MG TABLET (FP) PO SCH (09:16)
[2017-05-16] MEDS: HEPARIN NA (PORCINE) 5,000 UNITS/ML 1ML VIAL SQ SCH (09:17)
[2017-05-16] MEDS: HYDROmorphone HCL CARPU-JECT 1 MG/1 ML DISP.SYRIN IVPB PRN (09:24)
== END 2017-05-16 13:09 | disposition home or self-care (01) ==
LOC: JER 10:43 → JERBED 14:49 → J8W 17:25
PROVIDERS: ADMIT Family Medicine; ATTEND Family Medicine
PROC: 3E03329 Introduction of Other Anti-infective into Peripheral Vein, Percutaneous Approach (ICD-10-PCS; principal; 2017-05-14)
PROC: 3E0337Z Introduction of Electrolytic and Water Balance Substance into Peripheral Vein, Percutaneous Approach (ICD-10-PCS; 2017-05-14)
PROC: 3E033NZ Introduction of Analgesics, Hypnotics, Sedatives into Peripheral Vein, Percutaneous Approach (ICD-10-PCS; 2017-05-14)
PROC: 3E0337Z Introduction of Electrolytic and Water Balance Substance into Peripheral Vein, Percutaneous Approach (ICD-10-PCS; 2017-05-14)
DX: N39.0 Urinary tract infection, site not specified (principal); B96.89 Other specified bacterial agents as the cause of diseases classified elsewhere; R10.31 Right lower quadrant pain; R21 Rash and other nonspecific skin eruption; K52.9 Noninfective gastroenteritis and colitis, unspecified; I10 Essential (primary) hypertension; I48.91 Unspecified atrial fibrillation; E11.9 Type 2 diabetes mellitus without complications; E78.5 Hyperlipidemia, unspecified; G40.909 Epilepsy, unspecified, not intractable, without status epilepticus; M48.00 Spinal stenosis, site unspecified; Z96.653 Presence of artificial knee joint, bilateral; Z91.041 Radiographic dye allergy status; Z79.82 Long term (current) use of aspirin; Z79.01 Long term (current) use of anticoagulants; Z91.14 Patient's other noncompliance with medication regimen
CPT/HCPCS: 36415; 74176-TC; 76830-TC; 80053; 81003; 81015; 82150; 83690; 84484; 85025; 93005; 93010; 96365; 96367; 96372; 96375; 99283-25; G0378; J1644

== ENCOUNTER 2017-12-31 10:38 | Emergency (ER) | payer OTHER ==
[2017-12-31 10:58] VITALS: BMI 30.9
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
[2017-12-31] MEDS ORDERED: diazePAM 5 MG TABLET PO ONE (12:43)
[2017-12-31] MEDS ORDERED: KETOROLAC TROMETHAMINE 60 MG/2 ML VIAL IM ONE (12:43)
[2017-12-31] MEDS ORDERED: diazePAM 5 MG TABLET ONE (12:45)
[2017-12-31] MEDS ORDERED: KETOROLAC TROMETHAMINE 60 MG/2 ML VIAL ONE (12:45)
[2017-12-31] MEDS ORDERED: cloNIDine HCL 0.1 MG TABLET PO ONE (15:56)
[2017-12-31] MEDS ORDERED: amLODIPine BESYLATE 10 MG TABLET (FP) PO ONE (15:56)
[2017-12-31] MEDS ORDERED: cloNIDine HCL 0.1 MG TABLET ONE (16:01)
[2017-12-31] MEDS ORDERED: amLODIPine BESYLATE 5 MG TABLET (FP) ONE (16:01)
[2017-12-31] MEDS ORDERED: PHENYTOIN NA EXTENDED 100 MG CAPSULE (FP) ONE (16:02)
[2017-12-31] MEDS ORDERED: PHENYTOIN NA EXTENDED 100 MG CAPSULE (FP) PO ONE (16:05)
[2017-12-31 18:00] VITALS: BP 181/104; PULSE 87; TEMP 98.4
== END 2017-12-31 19:03 | disposition home or self-care (01) ==
LOC: JERFT 10:38 → JER 10:38
PROC: 3E0133Z Introduction of Anti-inflammatory into Subcutaneous Tissue, Percutaneous Approach (ICD-10-PCS; principal; 2017-12-31)
DX: I10 Essential (primary) hypertension (principal); E78.5 Hyperlipidemia, unspecified; M48.00 Spinal stenosis, site unspecified; I48.91 Unspecified atrial fibrillation; G40.909 Epilepsy, unspecified, not intractable, without status epilepticus; Z91.041 Radiographic dye allergy status
CPT/HCPCS: 99282-25; J0735

== ENCOUNTER 2018-03-23 10:10 | Emergency (ER) | payer OTHER ==
[2018-03-23] MEDS ORDERED: KETOROLAC TROMETHAMINE 60 MG/2 ML VIAL IM ONE (10:23)
[2018-03-23] MEDS ORDERED: METHOCARBAMOL 500 MG TABLET PO ONE (10:23)
[2018-03-23] MEDS ORDERED: ACETAMINOPHEN 500 MG TABLET (FP) PO ONE (10:23)
[2018-03-23] MEDS ORDERED: ACETAMINOPHEN 325 MG TABLET (FP) ONE (10:27)
[2018-03-23] MEDS ORDERED: METHOCARBAMOL 500 MG TABLET ONE (10:27)
[2018-03-23] MEDS ORDERED: KETOROLAC TROMETHAMINE 60 MG/2 ML VIAL ONE (10:28)
--- NOTE | 2018-03-23 10:30 | PDOC ---
History of Present Illness - General Chief Complaint: Back Pain Stated Complaint: BACK PAIN Time Seen by Provider: 03/23/18 10:15 History Source: Patient Exam Limitations: No Limitations - History of Present Illness Initial Comments: 03/23/18 10:24 Patient is an 62F with history of HTN, HLD, epilepsy, partial SBO, and chronic back pain here today complaining of back pain for the past 4 days, worsening today. Patient denies fevers, chills, urinary incontinence, focal weakness and history of cancer. Patient says her back pain is located in her lower right back. Denies any recent increases in physical activity. Describes pain as a severe cramping. Denies chest pain, shortness of breath, abdominal pain. Ankle pain is worse on the lateral aspect of the right ankle, able to ambulate. Past History - Past Medical History Allergies/Adverse Reactions: Allergies Allergy/AdvReac Type Severity Reaction Status Date / Time No Known Allergies Allergy Verified 03/23/18 10:21 Home Medications: Ambulatory Orders Gabapentin [Neurontin] 800 mg PO TID 04/11/15 Losartan/Hydrochlorothiazide [Losartan-Hctz 100-25 mg Tablet] 1 each PO DAILY Amlodipine Besylate [Norvasc -] 10 mg PO DAILY #30 tablet 03/27/17 Magnesium Hydrox 2400MG/30Ml [Milk of Magnesia -] 30 ml PO Q8H PRN #1 bottle Phenytoin Na Extended [Dilantin -] 100 mg PO TID #0 cap 09/14/17 Zolpidem Tartrate [Ambien] 10 mg PO HS PRN tablet MDD 1 09/14/17 Metoclopramide HCl [Reglan] 5 mg PO DAILY 12/31/17 Oxycodone HCl/Acetaminophen [Percocet 5-325 mg Tablet] 1 combo PO Q6H PRN #14 tablet MDD 4 12/31/17 Pantoprazole Sodium [Protonix -] 40 mg PO DAILY PRN 12/31/17 Quetiapine Fumarate [Seroquel] 200 tab PO HS 12/31/17 Tizanidine HCl 2 mg PO TID 12/31/17 cloNIDine HCL [Catapres -] 0.1 mg PO TID 12/31/17 Docusate Sodium [Colace -] 100 mg PO BID PRN capsule 01/31/18 Methocarbamol [Robaxin -] 500 mg PO BID #14 tablet 03/23/18 Methylprednisolone [Medrol Dose Reggie] 4 mg PO ASDIR #21 tablet 03/23/18 Anemia: No Asthma: Yes Cancer: No Cardiac Disorders: Yes (afib) CVA: No COPD: No CHF: No Diabetes: Yes GI Disorders: Yes (COLITIS) Disorders: No HTN: Yes Hypercholesterolemia: Yes Liver Disease: No Seizures: Yes Thyroid Disease: No - Surgical History Abdominal Surgery: No Appendectomy: Yes Cardiac Surgery: No Cholecystectomy: No Lung Surgery: No Neurologic Surgery: No Orthopedic Surgery: Yes (both knee replacement) - Immunization History Immunization Up to Date: Yes - Suicide/Smoking/Psychosocial Hx Smoking Status: No Smoking History: Former smoker Years of Tobacco Use: 10 Have you smoked in the past 12 months: No Number of Cigarettes Smoked Daily: 0 If you are a former smoker, when did you quit?: 2002 - smoked 1ppwk for about 10 yrs Hx Alcohol Use: No Drug/Substance Use Hx: No Substance Use Type: None Hx Substance Use Treatment: No Review of Systems - Review of Systems Comments:: 03/23/18 10:26 GENERAL/CONSTITUTIONAL: No fever or chills. No weakness. HEAD, EYES, EARS, NOSE AND THROAT: No change in vision. No sore throat. CARDIOVASCULAR: No chest pain or shortness of breath RESPIRATORY: No cough, wheezing, or hemoptysis. GASTROINTESTINAL: No nausea, vomiting, diarrhea or constipation. GENITOURINARY: No dysuria, frequency, or change in urination. MUSCULOSKELETAL: No joint or muscle swelling or pain. Positive for back pain. SKIN: No rash NEUROLOGIC: No headache, vertigo, loss of consciousness, or change in strength/ sensation. HEMATOLOGIC/LYMPHATIC: No anemia, easy bleeding, or history of blood clots. ALLERGIC/IMMUNOLOGIC: No hives or skin allergy. *Physical Exam - Physical Exam Comments: 03/23/18 10:26 GENERAL: Awake, alert, and fully oriented, in no acute distress BACK: No midline tenderness, positive right straight leg test, tender to palpation in inferior right side of back, no saddle anesthesia R ANKLE: Normal inspection, normal ROM, Tender along lateral aspect of malleoulus. HEAD: No signs of trauma, normocephalic, atraumatic EYES: PERRLA, EOMI, sclera anicteric, conjunctiva clear ENT: Auricles normal inspection, hearing grossly normal, nares patent, oropharynx clear without exudates. Moist mucosa NECK: Normal ROM, supple, no lymphadenopathy, JVD, or masses LUNGS: No distress, speaks full sentences, clear to auscultation bilaterally HEART: Regular rate and rhythm, normal S1 and S2, no murmurs, rubs or gallops, peripheral pulses normal and equal bilaterally. ABDOMEN: Soft, nontender, normoactive bowel sounds. No guarding, no rebound. No masses EXTREMITIES: Normal inspection, Normal range of motion, no edema. No clubbing or cyanosis. NEUROLOGICAL: Cranial nerves II through XII grossly intact. Normal speech, no focal sensorimotor deficits SKIN: Warm, Dry, normal turgor, no rashes or lesions noted. ED Treatment Course - RADIOLOGY Radiology Studies Ordered: Category Date Time Status ANKLE & FOOT-RIGHT* [RAD] Stat Radiology 03/23/18 10:24 Ordered Medical Decision Making - Medical Decision Making 03/23/18 10:29 Patient is 62F with history of chronic back pain, HTN, HLD, epilepsy, partial SBO and chronic pain here today with ankle and back pain. Vital signs stable and normal. No red flags in history. Will treat with robaxin, tylenol and toradol. Will image ankle. Likely discharge home. 03/23/18 12:40 Ankle x-rays negative. Patient ambulatory with cane, at baseline. Reports back pain has mostly resolved. Still having some ankle pain but can ambulate. Will discharge with instructions to take tylenol, ibuprofen, rest and ice. Will prescribe robaxin and medrol dose pack. Given return precautions. *DC/Admit/Observation/Transfer Diagnosis at time of Disposition: Back pain, Ankle pain - Discharge Dispostion Disposition: HOME Condition at time of disposition: Good - Prescriptions Prescriptions: Methocarbamol [Robaxin -] 500 mg PO BID #14 tablet Methylprednisolone [Medrol Dose Reggie] 4 mg PO ASDIR #21 tablet - Referrals Referrals: Yariel Springer [Primary Care Provider] - Macho Whyte MD [Staff Physician] - - Patient Instructions Printed Discharge Instructions: DI for Low Back Pain, DI for Ankle Sprain Additional Instructions: Please return if you have any new, worsening or concerning symptoms. Please follow up with your primary care physician this week. Please go to your pharmacy today to pick up worker your prescriptions. Please take your next dose of steroids tomorrow. - Post Discharge Activity
[2018-03-23 10:33] VITALS: TEMP 97.8; BMI 31.8
--- NOTE | 2018-03-23 10:47 | PDOC ---
Attending Attestation - Resident Resident Name: AbrahamireneMacho - ED Attending Attestation I have performed the following: I have examined & evaluated the patient, The case was reviewed & discussed with the resident, I agree w/resident's findings & plan, Exceptions are as noted - Medical Decision Making 03/23/18 10:47 I, Dr. Dariela Patton, DO, attest that this document has been prepared under my direction and personally reviewed by me in its entirety. I further attest, that it accurately reflects all work, treatment, procedures and medical decision -making performed by me. 03/23/18 10:57 a/p: 62yo female with chronic lbp that follows with pain management -3 days of R ankle pain - no swelling, but ttp over lateral malleolus and distal fibula -also with R low back pain - no signs or symptoms of caude equina -no new trauma -no f/c -will obtain lower leg xrays -will monitor and reassess -pain control <Dariela Patton - Last Filed: 03/23/18 10:57> - HPI HPI: 03/23/18 11:02 The patient is a 62 year old female with a past medical history of HTN, HLD, epilepsy, partial SBO, and chronic back pain, brought in by EMS today with back pain and right ankle pain for 4 days. She describes her back pain as lower right back pain radiating inferiorly to her right ankle. She denies any fall symptoms resulting in her current symptoms but notes she had been walking around in her flip flops more than usually prior to the onset of her symptoms. - Physicial Exam PE: 03/23/18 11:02 GENERAL: Awake, alert, and fully oriented, in no acute distress HEAD: No signs of trauma EYES: PERRLA, EOMI, sclera anicteric, conjunctiva clear ENT: Auricles normal inspection, hearing grossly normal, nares patent, oropharynx clear without exudates. Moist mucosa BACK: (+) Right lower back tenderness on palpation, positive straight leg test, no cauda equina. Normal ROM, supple, no lymphadenopathy, JVD, or masses LUNGS: Breath sounds equal, clear to auscultation bilaterally. No wheezes, and no crackles HEART: Regular rate and rhythm, normal S1 and S2, no murmurs, rubs or gallops ABDOMEN: Soft, nontender, normoactive bowel sounds. No guarding, no rebound. No masses EXTREMITIES: (+) Lateral malleolus and dorsum tenderness on dorsiflexion. No clubbing or cyanosis. NEUROLOGICAL: Cranial nerves II through XII grossly intact. Normal speech, normal gait SKIN: Warm, Dry, normal turgor, no rashes or lesions noted. - Medical Decision Making 03/23/18 11:02 Documentation prepared by Stan Valdivia, acting as biomedical field service engineer for Dariela Patton DO. <Stan Valdivia - Last Filed: 03/23/18 11:03>
[2018-03-23] MEDS ORDERED: predniSONE 20 MG TABLET (UD) PO ONE (11:40)
[2018-03-23] MEDS ORDERED: oxyCODONE HCL 5 MG TABLET PO ONE (11:41)
[2018-03-23] MEDS ORDERED: predniSONE 20 MG TABLET (UD) ONE (11:59)
[2018-03-23] MEDS ORDERED: oxyCODONE HCL 5 MG TABLET ONE (11:59)
[2018-03-23 13:10] VITALS: BP 148/90; PULSE 74
== END 2018-03-23 12:50 | disposition home or self-care (01) ==
LOC: JER 10:10
PROC: 3E0233Z Introduction of Anti-inflammatory into Muscle, Percutaneous Approach (ICD-10-PCS; principal; 2018-03-23)
DX: M54.5 Low back pain (principal); M25.571 Pain in right ankle and joints of right foot; I10 Essential (primary) hypertension; E78.00 Pure hypercholesterolemia, unspecified; E11.9 Type 2 diabetes mellitus without complications; E78.5 Hyperlipidemia, unspecified; I48.91 Unspecified atrial fibrillation; Z86.69 Personal history of other diseases of the nervous system and sense organs; Z87.891 Personal history of nicotine dependence
CPT/HCPCS: 73610-TC-RT-FY; 73630-TC-RT-FY; 96372; 99282-25

== ENCOUNTER 2018-05-15 06:48 | Inpatient (IN) | payer OTHER ==
--- NOTE | 2018-05-15 07:20 | PDOC ---
History of Present Illness - General History Source: Patient Exam Limitations: No Limitations - History of Present Illness Initial Comments: 05/15/18 07:54 The patient is a 62-year-old female, with a past medical history of asthma, HTN , hyperlipidemia, epilepsy, colitis, partial SBO, and chronic back pain, who presents to the ED via EMS with 1 week of shortness of breath, nonproductive cough, and abdominal pain. The patient describes her pain as a burning sensation , radiating up to her chest, and exacerbated after eating. The patient reports using her inhaler with little relief of her symptoms. She denies ever being intubated in the past for her asthma. Patient was last hospitalized for her asthma last year and received a dose of prednisone at the beginning of this year. She reports having one nebulizer treatment at home and another one while in route to the ED. The patient is compliant with all her medications. The patient denies any fever, chills, nausea, vomiting, diarrhea, or hematochezia. She denies any dysuria, frequency, urgency, or hematuria. Allergies: NKA Surgical History: appendectomy, bilateral knee replacements. Social History: The patient reports tobacco and alcohol use, but denies any drug use. PCP: Dr. Yariel Springer <Fior Torres - Last Filed: 05/15/18 12:33> <Greg Evans - Last Filed: 05/15/18 12:40> - General Chief Complaint: Shortness of Breath Stated Complaint: DIFFICULTY BREATHING Time Seen by Provider: 05/15/18 07:19 Past History <Fior Torres - Last Filed: 05/15/18 12:33> - Past Medical History Anemia: No Asthma: Yes Cancer: No Cardiac Disorders: Yes (afib) CVA: No COPD: No CHF: No Diabetes: Yes GI Disorders: Yes (COLITIS) Disorders: No HTN: Yes Hypercholesterolemia: Yes Liver Disease: No Seizures: Yes (Epilepsy) Thyroid Disease: No - Surgical History Abdominal Surgery: No Appendectomy: Yes Cardiac Surgery: No Cholecystectomy: No Lung Surgery: No Neurologic Surgery: No Orthopedic Surgery: Yes (both knee replacement) - Immunization History Immunization Up to Date: Yes - Suicide/Smoking/Psychosocial Hx Smoking Status: No Smoking History: Never smoked Years of Tobacco Use: 10 Have you smoked in the past 12 months: No Number of Cigarettes Smoked Daily: 0 If you are a former smoker, when did you quit?: 2002 - smoked 1ppwk for about 10 yrs Information on smoking cessation initiated: No Hx Alcohol Use: No Drug/Substance Use Hx: No Substance Use Type: None Hx Substance Use Treatment: No <Greg Evans - Last Filed: 05/15/18 12:40> - Past Medical History Allergies/Adverse Reactions: Allergies Allergy/AdvReac Type Severity Reaction Status Date / Time No Known Allergies Allergy Verified 05/15/18 06:59 Home Medications: Ambulatory Orders Gabapentin [Neurontin] 800 mg PO TID 04/11/15 Losartan/Hydrochlorothiazide [Losartan-Hctz 100-25 mg Tablet] 1 each PO DAILY Amlodipine Besylate [Norvasc -] 10 mg PO DAILY #30 tablet 03/27/17 Magnesium Hydrox 2400MG/30Ml [Milk of Magnesia -] 30 ml PO Q8H PRN #1 bottle Phenytoin Na Extended [Dilantin -] 100 mg PO TID #0 cap 09/14/17 Zolpidem Tartrate [Ambien] 10 mg PO HS PRN tablet MDD 1 09/14/17 Metoclopramide HCl [Reglan] 5 mg PO DAILY 12/31/17 Oxycodone HCl/Acetaminophen [Percocet 5-325 mg Tablet] 1 combo PO Q6H PRN #14 tablet MDD 4 12/31/17 Pantoprazole Sodium [Protonix -] 40 mg PO DAILY PRN 12/31/17 Quetiapine Fumarate [Seroquel] 200 tab PO HS 12/31/17 Tizanidine HCl 2 mg PO TID 12/31/17 cloNIDine HCL [Catapres -] 0.1 mg PO TID 12/31/17 Docusate Sodium [Colace -] 100 mg PO BID PRN capsule 01/31/18 Methocarbamol [Robaxin -] 500 mg PO BID #14 tablet 03/23/18 Methylprednisolone [Medrol Dose Reggie] 4 mg PO ASDIR #21 tablet 03/23/18 Review of Systems - Review of Systems Able to Perform ROS?: Yes Comments:: 05/15/18 07:55 CONSTITUTIONAL: No fever, no chills, no fatigue EYES: No visual changes ENT: No ear pain, no sore throat CARDIOVASCULAR: No chest pain, no palpitations RESPIRATORY: (+)cough, SOB GI: (+)Abdominal pain. No nausea, no vomiting, no constipation, no diarrhea GENITOURINARY: No dysuria, no frequency, no hematuria MUSKULOSKELETAL:(+)back pain. No joint pain. NEURO: No headache <Fior Torres - Last Filed: 05/15/18 12:33> *Physical Exam - Vital Signs Last Vital Signs Temp Pulse Resp BP Pulse Ox 99.4 F 109 H 20 131/92 99 05/15/18 07:00 05/15/18 07:00 05/15/18 07:00 05/15/18 07:00 05/15/18 07:00 - Physical Exam Comments: 05/15/18 07:57 CONSTITUTIONAL: Well-appearing; well-nourished; in no apparent distress HEAD: Normocephalic; atraumatic EYES: PERRL; EOM intact ENMT: External appears normal; normal oropharynx NECK: Supple; non-tender; no cervical lymphadenopathy CARD: Normal S1, S2; no murmurs, rubs, or gallops RESP: (+)Decreased air entry bilaterally, expiratory wheezing. No rhonchi, or rales ABD: Soft, non-distended; non-tender; no palpable organomegaly, no palpable hernias EXT: Normal ROM in all four extremities; non-tender to palpation; distal pulses intact SKIN: Warm, dry, no rash NEURO: No focal neurological deficiencies. <Fior Torres - Last Filed: 05/15/18 12:33> - Vital Signs Last Vital Signs Temp Pulse Resp BP Pulse Ox 99.4 F 109 H 20 131/92 99 05/15/18 07:00 05/15/18 07:00 05/15/18 07:00 05/15/18 07:00 05/15/18 07:00 <Greg Evans - Last Filed: 05/15/18 12:40> Heart Score/ECG Review - ECG Intrepretation Comment:: 05/15/18 7:17 EKG was reviewed by Dr. Evans at 7:17. Vent. Rate: 105 bpm UT Interval 148 ms QTc: 449 ms Sinus tachycardia. Possiblr Left atrial enlargement. Possible Anterior infarct, age undetermined. Abnormal EKG. <Fior Torres - Last Filed: 05/15/18 12:33> ED Treatment Course - LABORATORY CBC & Chemistry Diagram: 05/15/18 08:10 05/15/18 08:10 - RADIOLOGY Radiology Studies Ordered: 05/15/18 9:20 Chest X-Ray was reviewed by Dr. Evans and over-read by Radiology. Impression: Since 01/27/2018, again noted is a large heart, unfolded aorta and well expanded lung lam. There are some ill-defined density seen in the left upper lobe periphery. These were not present in the earlier exam. Correlation recommended. 05/15/18 12:[address] was reviewed by Dr. Evans and over-read by Radiology. Impression: 1. Ill-defined lobulated left upper lobe density of uncertain etiology. A neoplastic process cannot be excluded. Clinical correlation and follow-up recommended. 2. Chronic lung disease with no evidence of acute pathology within the chest. Please see above discussion. <Fior Torres - Last Filed: 05/15/18 12:33> - LABORATORY CBC & Chemistry Diagram: 05/15/18 08:10 05/15/18 08:10 <Greg Evans - Last Filed: 05/15/18 12:40> Medical Decision Making - Medical Decision Making 05/15/18 12:33 Dr. Brennan was paged and notified via phone service. <Fior Torres - Last Filed: 05/15/18 12:33> - Medical Decision Making 05/15/18 09:28 Patient is 62-year-old female with history of asthma (no intubations) hypertension, seizure disorder, former smoker who presents to the ER with persistent shortness of breath for the past several days not effectively controlled by home albuterol MDI treatments. Patient also complaining of persistent chronic low back pain. On initial evaluation, patient is noted to be afebrile, mildly tachycardic, with decreased air entry bilaterally and significant end- expiratory wheezing bilaterally with the initial peak flow of 300. Patient had received 2 Combivent treatments prior to my evaluation. EKG showedevidence of acute ischemia. I do not suspect ACS or PE at this time. Acute asthma exacerbation is suspected. Patient's received additional by mouth prednisone as well as Flexeril and acetaminophen for chronic back pain chest x- ray reveals a left upper lobe opacity which given patient's long history of smoking will be investigated with a noncontrast CT of chest. Will continue with albuterol treatments as needed. Will reassess. 05/15/18 12:38 Patient continues with expiratory wheezing bilaterally with difficulty breathing. Will continue with albuterol and Atrovent as needed. CT of chest reveals a lobulated left upper lobe mass which may represent a malignancy versus infection. Will obtain blood cultures and we'll treat with ceftriaxone and Zithromax for CAP. Case discussed with Dr. Hamilton of pulmonary. Will admit patient for further evaluation and treatment. <Greg Evans - Last Filed: 05/15/18 12:40> *DC/Admit/Observation/Transfer - Attestations Scribe Attestion: 05/15/18 07:58 Documentation prepared by Fior Torres, acting as medical examiner for Greg Evans MD. <Fior Torres - Last Filed: 05/15/18 12:33> - Discharge Dispostion Decision to Admit order: Yes - Attestations Physician Attestion: 05/15/18 09:28 The documentation was prepared by the scribe under my direct supervision. I have reviewed the documentation which correctly represents the findings, medical decision-making and critical action taken by me. <Greg Evans - Last Filed: 05/15/18 12:40> Diagnosis at time of Disposition: Lung mass Acute asthma exacerbation Qualifiers: Asthma severity: unspecified severity Asthma persistence: persistent Qualified Code(s): J45.901 - Unspecified asthma with (acute) exacerbation - Discharge Dispostion Condition at time of disposition: Fair - Referrals Referrals: Yariel Springer [Primary Care Provider] - - Patient Instructions - Post Discharge Activity
[2018-05-15] MEDS ORDERED: predniSONE 20 MG TABLET (UD) PO ONE (07:34)
[2018-05-15] MEDS ORDERED: predniSONE 20 MG TABLET (UD) ONE (07:51)
[2018-05-15] MEDS ORDERED: predniSONE 10 MG TABLET (UD) ONE (07:51)
[2018-05-15] MEDS ORDERED: ACETAMINOPHEN 500 MG TABLET (FP) PO ONE (07:53)
[2018-05-15] MEDS ORDERED: METHOCARBAMOL 500 MG TABLET PO ONE (07:53)
[2018-05-15] MEDS ORDERED: ACETAMINOPHEN 325 MG TABLET (FP) ONE (07:57)
[2018-05-15] MEDS ORDERED: CYCLOBENZAPRINE HCL 10 MG TABLET (FP) ONE (08:01)
[2018-05-15 08:25] LABS: BASO % 0.6 % (0-2.0); EOS % 1.7 % (0-4.5); HEMATOCRIT 34.8 % (32.4-45.2); HEMOGLOBIN 11.6 GM/dL (10.7-15.3); MCH 31.3 pg (25.7-33.7); MCHC 33.3 g/dl (32.0-36.0); MEAN CELL VOLUME 93.8 fl (80-96); MEAN PLT VOLUME 10.3 fl (7.5-11.1); MONO % 7.7 % (3.8-10.2); PLATELET COUNT 150 K/MM3 (134-434); RBC 3.71 M/mm3 (3.60-5.2); RDW 14.5 % (11.6-15.6); WHITE BLOOD COUNT 6.3 K/mm3 (4.0-10.0)
[2018-05-15] MEDS ORDERED: ALBUTEROL SO4 2.5/IPRATROPIUM 0.5 INH SOL 3 ML VIAL.NEB. NEB ONE ×2 (08:41→09:27)
[2018-05-15 08:49] LABS: ALBUMIN 3.8 g/dl (3.4-5.0); ANION GAP 8 (8-16); BILIRUBIN,TOTAL 0.2 mg/dL (0.2-1.0); BLOOD UREA NITROGEN 15 mg/dL (7-18); CALCIUM 9.1 mg/dL (8.5-10.1); CHLORIDE 111 mmol/L (98-107); CO2 26 mmol/L (21-32); CREATININE 0.8 mg/dL (0.55-1.02); GLUCOSE,RANDOM 110 mg/dL (74-106); LIPASE 121 U/L (73-393); POTASSIUM 3.6 mmol/L (3.5-5.1); SGOT/AST 14 U/L (15-37); SGPT/ALT 22 U/L (12-78); SODIUM 145 mmol/L (136-145)
[2018-05-15 08:51] LABS: ALK PHOS 140 U/L (45-117); TOT PROT 7.3 g/dl (6.4-8.2)
[2018-05-15] MEDS ORDERED: ALBUTEROL SO4 0.083% IH SOL 2.5 MG/3 ML VIAL.NEB. NEB ONE ×3 (09:21→15:47)
[2018-05-15] MEDS: PHENYTOIN SODIUM 100 MG/2 ML VIAL IVPB ONE ×2 (11:13→11:45)
[2018-05-15] MEDS ORDERED: PHENYTOIN SODIUM INJECTION 1,000 MG in SODIUM CHLORIDE 100 ML IVPB ONE (11:30)
[2018-05-15] MEDS: CEFTRIAXONE 1,000 MG in DEXTROSE 5%-WATER - 50 ML IVPB ONE ×2 (12:25→12:29)
[2018-05-15] MEDS ORDERED: AZITHROMYCIN IVPB 500 MG in DEXTROSE 5%-WATER - 250 ML IVPB ONE (12:26)
[2018-05-15] MEDS ORDERED: CEFTRIAXONE 1 GM/50 ML BAG ONE (12:56)
[2018-05-15] MEDS ORDERED: AZITHROMYCIN IVPB 250 ML IVPB ONE (12:57)
[2018-05-15] MEDS ORDERED: ACETAMINOPHEN 325 MG TABLET (FP) PO PRN (15:45)
--- NOTE | 2018-05-15 17:10 | CON.CARD ---
Consult Consult Specialty:: Cardiology Referred by:: Dr. Brennan Reason for Consultation:: Chest discomfort - History of Present Illness Chief Complaint: cough History of Present Illness: "The patient is a 62-year-old female, with a past medical history of asthma, HTN , hyperlipidemia, epilepsy, colitis, partial SBO, and chronic back pain, who presents to the ED via EMS with 1 week of shortness of breath, nonproductive cough, and abdominal pain. The patient describes her pain as a burning sensation , radiating up to her chest, and exacerbated after eating. The patient reports using her inhaler with little relief of her symptoms. She denies ever being intubated in the past for her asthma. Patient was last hospitalized for her asthma last year and received a dose of prednisone at the beginning of this year. She reports having one nebulizer treatment at home and another one while in route to the ED. The patient is compliant with all her medications. The patient denies any fever, chills, nausea, vomiting, diarrhea, or hematochezia. She denies any dysuria, frequency, urgency, or hematuria. " ER HPI above. Confirmed upon my history. 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, Peripheral Neuropathy (mostly left foot from back problems) , Seizure, Syncope Cardio/Vascular: Yes: CAD (Non-obstructive with myocardial bridge), HTN, Hyperlipdemia Gastrointestinal: Yes: Constipation Musculoskeletal: Yes: Chronic low back pain, Osteoarthritis - Past Surgical History Past Surgical History: Yes: Appendectomy, Colonoscopy (years ago), Joint Replacement (bilateral knees) - Alcohol/Substance Use Hx Alcohol Use: No History of Substance Use: reports: Marijuana (in past, on occasion, last few months ago (planning to get medical card)) - Smoking History Smoking history: Never smoked Have you smoked in the past 12 months: No Aproximately how many cigarettes per day: 0 If you are a former smoker, when did you quit?: 2002 - smoked 1ppwk for about 10 yrs - Social History ADL: Independent History of Recent Travel: No Home Medications - Allergies Allergies/Adverse Reactions: Allergies Allergy/AdvReac Type Severity Reaction Status Date / Time No Known Allergies Allergy Verified 05/15/18 06:59 - Home Medications Home Medications: Ambulatory Orders Gabapentin [Neurontin] 800 mg PO TID 04/11/15 Losartan/Hydrochlorothiazide [Losartan-Hctz 100-25 mg Tablet] 1 each PO DAILY Amlodipine Besylate [Norvasc -] 10 mg PO DAILY #30 tablet 03/27/17 Magnesium Hydrox 2400MG/30Ml [Milk of Magnesia -] 30 ml PO Q8H PRN #1 bottle Phenytoin Na Extended [Dilantin -] 100 mg PO TID #0 cap 09/14/17 Zolpidem Tartrate [Ambien] 10 mg PO HS PRN tablet MDD 1 09/14/17 Metoclopramide HCl [Reglan] 5 mg PO DAILY 12/31/17 Oxycodone HCl/Acetaminophen [Percocet 5-325 mg Tablet] 1 combo PO Q6H PRN #14 tablet MDD 4 12/31/17 Pantoprazole Sodium [Protonix -] 40 mg PO DAILY PRN 12/31/17 Quetiapine Fumarate [Seroquel] 200 tab PO HS 12/31/17 Tizanidine HCl 2 mg PO TID 12/31/17 cloNIDine HCL [Catapres -] 0.1 mg PO TID 12/31/17 Docusate Sodium [Colace -] 100 mg PO BID PRN capsule 01/31/18 Methocarbamol [Robaxin -] 500 mg PO BID #14 tablet 03/23/18 Methylprednisolone [Medrol Dose Reggie] 4 mg PO ASDIR #21 tablet 03/23/18 Family Disease History - Family Disease History Family Disease History: Other: Mother (rheumatoid arthritis) Review of Systems Findings/Remarks: see HPI - Review of Systems Cardiovascular: reports: Shortness of Breath Respiratory: reports: Cough (chest tightness with cough) Neurological: reports: No Symptoms - Risk Factors Known Risk Factors: Yes: Hypertension Vital Signs: Vital Signs Temperature 99.4 F 05/15/18 07:00 Pulse Rate 109 H 05/15/18 07:00 Respiratory Rate 16 05/15/18 11:30 Blood Pressure 136/79 05/15/18 11:30 O2 Sat by Pulse Oximetry (%) 98 05/15/18 11:30 Constitutional: Yes: No Distress, Calm Eyes: Yes: Conjunctiva Clear, EOM Intact HENT: Yes: Atraumatic, Normocephalic Respiratory: Yes: Rhonchi Gastrointestinal: Yes: Soft JVD: No Carotid Bruit: No Heart Sounds: Yes: S1, S2 (RRR, no murmurs) Edema: No Neurological: Yes: Alert, Oriented - Other Data Labs, Other Data: CBC, BMP 05/15/18 08:10 05/15/18 08:10 ST 105bpm, LAE.Poor R wave Echo: Pending Prior Cardiac Procedures: Cardiac Catheterization (2010 non-obstx with myocardial bridge) Ejection Fraction %: LVEF > or = 40 % Imaging - Results Cat Scan: Report Reviewed, Image Reviewed EKG: Image Reviewed Problem List - Problems (1) Acute asthma exacerbation Code(s): J45.901 - UNSPECIFIED ASTHMA WITH (ACUTE) EXACERBATION Qualifiers: Asthma severity: unspecified severity Asthma persistence: persistent Qualified Code(s): J45.901 - Unspecified asthma with (acute) exacerbation (2) Lung mass Code(s): R91.8 - OTHER NONSPECIFIC ABNORMAL FINDING OF LUNG FIELD (3) Hypertension Code(s): I10 - ESSENTIAL (PRIMARY) HYPERTENSION Qualifiers: Hypertension type: essential hypertension Qualified Code(s): I10 - Essential (primary) hypertension Assessment/Plan IMP: Lung mass: infiltrate vs neoplasm Chronic Asthma Cough secondary to above. Chest tightness due to cough and possible mass Chronic HTN REC: 1. Cough/Lung mass vs infiltrate: causing chest discomfort, associated with cough. -As per PMD and Pulmonary 2. HTN: -Well controlled cont home regimen 3. Non-obstx CAD: -ASA 81 -Echo for EF assessment and to r/o pericardial disease 4. DVT prophylaxis: as per PMD.
[2018-05-15 20:28] VITALS: BMI 31.8
[2018-05-15] MEDS: ALBUTEROL SO4 0.083% IH SOL 2.5 MG/3 ML VIAL.NEB. NEB PRN (20:43)
[2018-05-15] MEDS: oxyCODONE HCL 5 MG TABLET PO PRN (21:19)
[2018-05-15] MEDS ORDERED: DOCUSATE SODIUM 100 MG CAPSULE (FP) PO SCH (22:00)
[2018-05-15] MEDS ORDERED: METHOCARBAMOL 500 MG TABLET PO SCH (22:00)
[2018-05-15] MEDS: PHENYTOIN NA EXTENDED 100 MG CAPSULE (FP) PO SCH (22:54)
[2018-05-15] MEDS: QUEtiapine FUMARATE 200 MG TABLET PO SCH (22:54)
[2018-05-15] MEDS: GABAPENTIN 400 MG CAPSULE (FP) PO SCH (22:54)
[2018-05-15] MEDS: cloNIDine HCL 0.1 MG TABLET PO SCH (22:54)
[2018-05-15] MEDS: HEPARIN NA (PORCINE) 5,000 UNITS/ML 1ML VIAL SQ SCH (22:54)
[2018-05-15] MEDS: DOCUSATE SODIUM 100 MG CAPSULE (FP) PO SCH (22:54)
[2018-05-16] MEDS: ALBUTEROL SO4 0.083% IH SOL 2.5 MG/3 ML VIAL.NEB. NEB PRN (01:29)
[2018-05-16] MEDS: PHENYTOIN NA EXTENDED 100 MG CAPSULE (FP) PO SCH ×3 (06:29→21:32)
[2018-05-16] MEDS: cloNIDine HCL 0.1 MG TABLET PO SCH ×3 (06:29→21:30)
[2018-05-16] MEDS: oxyCODONE HCL 5 MG TABLET PO PRN ×3 (06:42→21:30)
[2018-05-16] MEDS: ALBUTEROL SO4 0.083% IH SOL 2.5 MG/3 ML VIAL.NEB. NEB SCH ×2 (06:43→09:56)
[2018-05-16 07:41] LABS: HEMATOCRIT 32.5 % (32.4-45.2); MCH 31.9 pg (25.7-33.7); MCHC 33.9 g/dl (32.0-36.0); MEAN CELL VOLUME 94.1 fl (80-96); MEAN PLT VOLUME 10.4 fl (7.5-11.1); PLATELET COUNT 156 K/MM3 (134-434); RBC 3.46 M/mm3 (3.60-5.2); RDW 14.7 % (11.6-15.6); WHITE BLOOD COUNT 7.5 K/mm3 (4.0-10.0)
[2018-05-16 07:55] LABS: ALBUMIN 3.3 g/dl (3.4-5.0); ANION GAP 8 (8-16); BLOOD UREA NITROGEN 14 mg/dL (7-18); CALCIUM 8.7 mg/dL (8.5-10.1); CHLORIDE 112 mmol/L (98-107); CO2 25 mmol/L (21-32); GLUCOSE,RANDOM 87 mg/dL (74-106); POTASSIUM 3.6 mmol/L (3.5-5.1); SODIUM 145 mmol/L (136-145)
[2018-05-16 08:09] LABS: ALK PHOS 113 U/L (45-117); BILIRUBIN,TOTAL 0.3 mg/dL (0.2-1.0); CHOLESTEROL 224 mg/dL (50-200); CREATININE 0.6 mg/dL (0.55-1.02); HDL CHOLESTEROL 93 mg/dL (40-60); SGOT/AST 10 U/L (15-37); SGPT/ALT 20 U/L (12-78); TOT PROT 6.5 g/dl (6.4-8.2); TRIGLYCERIDES 68 mg/dL (35-160)
--- NOTE | 2018-05-16 09:17 | PN ---
Progress Note, Physician Chief Complaint: coughing - Current Medication List Current Medications: Active Medications Acetaminophen (Tylenol -) 650 mg PO Q6H PRN PRN Reason: FEVER Albuterol Sulfate (Ventolin 0.083% Nebulizer Soln -) 1 amp NEB Q4HPO [facility] Last Admin: 05/16/18 06:43 Dose: 1 amp Amlodipine Besylate (Norvasc -) 5 mg PO DAILY [facility] Clonidine (Catapres -) 0.1 mg PO TID [facility] Last Admin: 05/16/18 06:29 Dose: 0.1 mg Docusate Sodium (Colace -) 300 mg PO HS [facility] Last Admin: 05/15/18 22:54 Dose: 300 mg Gabapentin (Neurontin -) 800 mg PO BID [facility] Last Admin: 05/15/18 22:54 Dose: 800 mg HCTZ/Losartan Potassium (Hyzaar -) 2 tab PO DAILY [facility] Heparin Sodium (Porcine) (Heparin -) 5,000 unit SQ BID [facility] Last Admin: 05/15/18 22:54 Dose: 5,000 unit Magnesium Hydroxide (Milk Of Magnesia -) 30 ml PO Q8H PRN PRN Reason: INDIGESTION Methocarbamol (Robaxin -) 500 mg PO BID [facility] Oxycodone HCl (Roxicodone -) 5 mg PO Q4H PRN PRN Reason: PAIN LEVEL 6-10 Last Admin: 05/16/18 06:42 Dose: 5 mg Pantoprazole Sodium (Protonix -) 40 mg PO DAILY [facility] Phenytoin Sodium (Dilantin -) 100 mg PO TID [facility] Last Admin: 05/16/18 06:29 Dose: 100 mg Quetiapine Fumarate (Seroquel -) 200 mg PO HS [facility] Last Admin: 05/15/18 22:54 Dose: 200 mg Tizanidine HCl (Tizanidine Hcl) 2 mg PO Q8H PRN PRN Reason: MUSCLE SPASMS Zolpidem Tartrate (Ambien -) 10 mg PO HS PRN PRN Reason: INSOMNIA - Objective Vital Signs: Vital Signs Temperature 97.4 F L 05/16/18 06:00 Pulse Rate 80 05/16/18 06:00 Respiratory Rate 18 05/16/18 06:00 Blood Pressure 118/74 05/16/18 06:00 O2 Sat by Pulse Oximetry (%) 96 05/15/18 20:38 Constitutional: Yes: Calm Cardiovascular: Yes: Regular Rate and Rhythm Respiratory: Yes: Rhonchi Gastrointestinal: Yes: Soft Edema: No Neurological: Yes: Alert, Oriented ...Motor Strength: WNL Labs: CBC, BMP 05/16/18 06:30 05/16/18 06:30 Laboratory Tests 05/16/18 05/16/18 06:30 06:30 WBC 7.5 Hgb 11.0 Plt Count 156 Sodium 145 Potassium 3.6 Creatinine 0.6 Problem List - Problems (1) Acute asthma exacerbation Code(s): J45.901 - UNSPECIFIED ASTHMA WITH (ACUTE) EXACERBATION Qualifiers: Asthma severity: unspecified severity Asthma persistence: persistent Qualified Code(s): J45.901 - Unspecified asthma with (acute) exacerbation (2) Lung mass Code(s): R91.8 - OTHER NONSPECIFIC ABNORMAL FINDING OF LUNG FIELD (3) Hypertension Code(s): I10 - ESSENTIAL (PRIMARY) HYPERTENSION Qualifiers: Hypertension type: essential hypertension Qualified Code(s): I10 - Essential (primary) hypertension Assessment/Plan IMP: Lung mass: infiltrate vs neoplasm Chronic Asthma Cough secondary to above. Chest tightness due to cough and possible mass Chronic HTN REC: 1. Cough/Lung mass vs infiltrate: causing chest discomfort, associated with cough. -As per pulmonary 2. HTN: -Well controlled cont home regimen 3. Non-obstx CAD: -ASA 81 -Echo for EF assessment and to r/o pericardial disease 4. DVT prophylaxis: as per PMD.
[2018-05-16] MEDS ORDERED: PT OWN MED DRAWER 7, Y5N ONE ×4 (10:39→21:24)
[2018-05-16] MEDS: HEPARIN NA (PORCINE) 5,000 UNITS/ML 1ML VIAL SQ SCH ×2 (11:09→21:31)
[2018-05-16] MEDS: PANTOPRAZOLE 40 MG TABLET (FP) PO SCH (11:09)
[2018-05-16] MEDS: amLODIPine BESYLATE 5 MG TABLET (FP) PO SCH (11:09)
[2018-05-16] MEDS: GABAPENTIN 400 MG CAPSULE (FP) PO SCH ×2 (11:09→21:31)
--- NOTE | 2018-05-16 11:11 | HP ---
Admitting History and Physical - Primary Care Physician PCP: Leela Brennan (Yariel Springer) - Admission Chief Complaint: Shortness of breath History of Present Illness: NAD Coughing hoarseness, voice change mild SOB on exertion Seen by Pulmonary on IV abx labs unremarkable Seen by Cardiology Echo results pending, last echo 02/2017-unremarkable. 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, Peripheral Neuropathy (mostly left foot from back problems) , Seizure, Syncope Cardiovascular: Yes: CAD (Non-obstructive with myocardial bridge), HTN, Hyperlipdemia Gastrointestinal: Yes: Constipation Musculoskeletal: Yes: Chronic low back pain, Osteoarthritis - Past Surgical History Past Surgical History: Yes: Appendectomy, Colonoscopy (years ago), Joint Replacement (bilateral knees) - Smoking History Smoking history: Former smoker Have you smoked in the past 12 months: No Aproximately how many cigarettes per day: 0 If you are a former smoker, when did you quit?: 2002 - smoked 1ppwk for about 10 yrs - Alcohol/Substance Use Hx Alcohol Use: No History of Substance Use: reports: Marijuana (in past, on occasion, last few months ago (planning to get medical card)) - Social History ADL: Independent History of Recent Travel: No Home Medications - Allergies Allergies/Adverse Reactions: Allergies Allergy/AdvReac Type Severity Reaction Status Date / Time No Known Allergies Allergy Verified 05/15/18 06:59 - Home Medications Home Medications: Ambulatory Orders Gabapentin [Neurontin] 800 mg PO TID 04/11/15 Losartan/Hydrochlorothiazide [Losartan-Hctz 100-25 mg Tablet] 1 each PO DAILY Amlodipine Besylate [Norvasc -] 10 mg PO DAILY #30 tablet 03/27/17 Magnesium Hydrox 2400MG/30Ml [Milk of Magnesia -] 30 ml PO Q8H PRN #1 bottle Phenytoin Na Extended [Dilantin -] 100 mg PO TID #0 cap 09/14/17 Zolpidem Tartrate [Ambien] 10 mg PO HS PRN tablet MDD 1 09/14/17 Metoclopramide HCl [Reglan] 5 mg PO DAILY 12/31/17 Oxycodone HCl/Acetaminophen [Percocet 5-325 mg Tablet] 1 combo PO Q6H PRN #14 tablet MDD 4 12/31/17 Pantoprazole Sodium [Protonix -] 40 mg PO DAILY PRN 12/31/17 Quetiapine Fumarate [Seroquel] 200 tab PO HS 12/31/17 Tizanidine HCl 2 mg PO TID 12/31/17 cloNIDine HCL [Catapres -] 0.1 mg PO TID 12/31/17 Docusate Sodium [Colace -] 100 mg PO BID PRN capsule 01/31/18 Methocarbamol [Robaxin -] 500 mg PO BID #14 tablet 03/23/18 Methylprednisolone [Medrol Dose Reggie] 4 mg PO ASDIR #21 tablet 03/23/18 Family Disease History - Family Disease History Family Disease History: Other: Mother (rheumatoid arthritis) Review of Systems - Review of Systems Constitutional: reports: Chills Eyes: reports: No Symptoms HENT: reports: No Symptoms, Throat Pain Neck: reports: No Symptoms Cardiovascular: reports: Chest Pain, Shortness of Breath Respiratory: reports: Cough, SOB on Exertion, Wheezing Gastrointestinal: reports: No Symptoms Genitourinary: reports: No Symptoms Breasts: reports: No Symptoms Reported Musculoskeletal: reports: No Symptoms Integumentary: reports: No Symptoms Neurological: reports: No Symptoms Endocrine: reports: No Symptoms Hematology/Lymphatic: reports: No Symptoms Psychiatric: reports: No Symptoms Physical Examination Vital Signs: Vital Signs Temperature 97.4 F L 05/16/18 06:00 Pulse Rate 80 05/16/18 06:00 Respiratory Rate 18 05/16/18 06:00 Blood Pressure 118/74 05/16/18 06:00 O2 Sat by Pulse Oximetry (%) 96 05/15/18 20:38 Constitutional: Yes: Well Nourished, No Distress, Calm Cardiovascular: Yes: Regular Rate and Rhythm Respiratory: Yes: SOB on Exertion, Wheezes (diffuse) Gastrointestinal: Yes: Normal Bowel Sounds, Soft, Abdomen, Obese Musculoskeletal: Yes: WNL Extremities: Yes: WNL Edema: No Peripheral Pulses WNL: Yes Neurological: Yes: Alert, Oriented Psychiatric: Yes: Alert, Oriented Labs: CBC, BMP 05/16/18 06:30 05/16/18 06:30 Imaging - Results Chest X-ray: Report Reviewed Problem List - Problems (1) Acute asthma exacerbation Assessment/Plan: -pulmonary consult appreciated -IV abx -IV steroids -Bronchodilators -Cepacol and tussin for cough Code(s): J45.901 - UNSPECIFIED ASTHMA WITH (ACUTE) EXACERBATION Qualifiers: Asthma severity: unspecified severity Asthma persistence: persistent Qualified Code(s): J45.901 - Unspecified asthma with (acute) exacerbation (2) Lung mass Assessment/Plan: -has had lung mass in the past, had CT done at [facility] in Oct 2017 as per patient -Pulmonary consult -repeat CT chest in 3-4 weeks after abx course Code(s): R91.8 - OTHER NONSPECIFIC ABNORMAL FINDING OF LUNG FIELD (3) Shortness of breath Assessment/Plan: -pulmonary consult appreciated -IV abx -IV steroids -Bronchodilators Code(s): R06.02 - SHORTNESS OF BREATH Assessment/Plan see problem list DVT prophylaxis Pt self ambulatory
--- NOTE | 2018-05-16 11:37 | CON.PULM ---
Consult Consult Specialty:: PULMONARY Referred by:: Dr. Brennan Reason for Consultation:: shortness of breath - History of Present Illness Chief Complaint: shortness of breath History of Present Illness: 62yo female with h/o HTN, hyperlipidemia, seizure disorder, asthma, chronic back pain who was admitted with worsening shortness of breath and cough. No chest pain but with chronic back pain. No fevers, chills or sweats. + nonproductive cough and wheezing. She was diagnosed with asthma in her 20s. She was a light smoker from her 20s to 30s. Never intubated, on prednisone about once a year. Maintained at home on Advair 500/50mcg, Albuterol MDI and nebulizers. Found to have a REMY nodule on CT chest. 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 No lung cancer in family history. 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: Yes: Migraine, Peripheral Neuropathy (mostly left foot from back problems) , Seizure, Syncope Cardio/Vascular: Yes: CAD (Non-obstructive with myocardial bridge), HTN, Hyperlipdemia Gastrointestinal: Yes: Constipation Musculoskeletal: Yes: Chronic low back pain, Osteoarthritis - Past Surgical History Past Surgical History: Yes: Appendectomy, Colonoscopy (years ago), Joint Replacement (bilateral knees) - Alcohol/Substance Use Hx Alcohol Use: No History of Substance Use: reports: Marijuana (in past, on occasion, last few months ago (planning to get medical card)) - Smoking History Smoking history: Former smoker Have you smoked in the past 12 months: No Aproximately how many cigarettes per day: 0 If you are a former smoker, when did you quit?: 2002 - smoked 1ppwk for about 10 yrs - Social History ADL: Independent History of Recent Travel: No Home Medications - Allergies Allergies/Adverse Reactions: Allergies Allergy/AdvReac Type Severity Reaction Status Date / Time No Known Allergies Allergy Verified 05/15/18 06:59 - Home Medications Home Medications: Ambulatory Orders Gabapentin [Neurontin] 800 mg PO TID 04/11/15 Losartan/Hydrochlorothiazide [Losartan-Hctz 100-25 mg Tablet] 1 each PO DAILY Amlodipine Besylate [Norvasc -] 10 mg PO DAILY #30 tablet 03/27/17 Magnesium Hydrox 2400MG/30Ml [Milk of Magnesia -] 30 ml PO Q8H PRN #1 bottle Phenytoin Na Extended [Dilantin -] 100 mg PO TID #0 cap 09/14/17 Zolpidem Tartrate [Ambien] 10 mg PO HS PRN tablet MDD 1 09/14/17 Metoclopramide HCl [Reglan] 5 mg PO DAILY 12/31/17 Oxycodone HCl/Acetaminophen [Percocet 5-325 mg Tablet] 1 combo PO Q6H PRN #14 tablet MDD 4 12/31/17 Pantoprazole Sodium [Protonix -] 40 mg PO DAILY PRN 12/31/17 Quetiapine Fumarate [Seroquel] 200 tab PO HS 12/31/17 Tizanidine HCl 2 mg PO TID 12/31/17 cloNIDine HCL [Catapres -] 0.1 mg PO TID 12/31/17 Docusate Sodium [Colace -] 100 mg PO BID PRN capsule 01/31/18 Methocarbamol [Robaxin -] 500 mg PO BID #14 tablet 03/23/18 Methylprednisolone [Medrol Dose Reggie] 4 mg PO ASDIR #21 tablet 03/23/18 Family Disease History - Family Disease History Family Disease History: Other: Mother (rheumatoid arthritis) Review of Systems - Review of Systems Constitutional: denies: Chills, Fever Eyes: denies: Recent Change in Vision HENT: denies: Nasal Congestion, Throat Pain Neck: denies: Stiffness, Tenderness Cardiovascular: reports: Shortness of Breath. denies: Chest Pain, Edema, Palpitations Respiratory: reports: Cough, SOB on Exertion, Wheezing. denies: Hemoptysis Gastrointestinal: denies: Abdominal Pain, Nausea, Vomiting Genitourinary: denies: Dysuria, Hematuria Musculoskeletal: reports: Back Pain. denies: Extremity Pain, Joint Pain Neurological: denies: Dizziness, Headache Endocrine: denies: Unexplained Weight Loss Physical Exam Vital Sings: Vital Signs Temperature 97.4 F L 05/16/18 06:00 Pulse Rate 80 05/16/18 06:00 Respiratory Rate 18 05/16/18 06:00 Blood Pressure 118/74 05/16/18 06:00 O2 Sat by Pulse Oximetry (%) 96 05/15/18 20:38 Constitutional: Yes: Anxious Eyes: Yes: Conjunctiva Clear, EOM Intact HENT: Yes: Atraumatic, Normocephalic Neck: Yes: Supple, Trachea Midline Cardiovascular: Yes: Regular Rate and Rhythm Respiratory: Yes: Rhonchi, Wheezes ...Clubbing: No Gastrointestinal: Yes: Normal Bowel Sounds, Soft. No: Tenderness Edema: No Neurological: Yes: Alert, Oriented Labs: CBC, BMP 05/16/18 06:30 05/16/18 06:30 Imaging - Results Cat Scan: Report Reviewed, Image Reviewed (REMY nodules) Problem List - Problems (1) Acute asthma exacerbation Code(s): J45.901 - UNSPECIFIED ASTHMA WITH (ACUTE) EXACERBATION Qualifiers: Asthma severity: unspecified severity Asthma persistence: persistent Qualified Code(s): J45.901 - Unspecified asthma with (acute) exacerbation (2) Lung nodule Code(s): R91.1 - SOLITARY PULMONARY NODULE Assessment/Plan Acute Asthma Exacerbation Lung Nodule HTN Hyperlipidemia Chronic Back Pain - would start IV medrol - inhaled bronchodilators standing and PRN - empiric antibiotics - repeat CT chest in 3-4 weeks after antibiotic course, if nodule still present or larger will need CT guided needle biopsy - DVT prophylaxis Thank you for this consult Yariel Willett MD
[2018-05-16] MEDS ORDERED: ALBUTEROL SO4 0.083% IH SOL 2.5 MG/3 ML VIAL.NEB. NEB PRN (11:38)
[2018-05-16] MEDS: ALBUTEROL SO4 2.5/IPRATROPIUM 0.5 INH SOL 3 ML VIAL.NEB. NEB SCH ×3 (12:00→20:20)
--- NOTE | 2018-05-16 13:24 | ECHO ---
Name: BANGURA, TAIWO Exam:Adult Echocardiogram Study Date: 05/16/2018 10:07 AM Reason For Study: Chest pain Height: 63 in Weight: 175 lb BSA: 1.8 m2 MMode/2D Measurements & Calculations IVSd: 1.1 cm Ao root diam: 2.9 cm LVIDd: 4.5 cm LA dimension: 2.8 cm LVPWd: 1.1 cm EDV(Teich): 90.1 ml LVOT diam: 2.8 cm Doppler Measurements & Calculations MV E max dank: 93.2 cm/sec Med Peak E' Dank: 9.4 cm/sec MV A max dank: 61.7 cm/sec Med E/e': 10.0 MV E/A: 1.5 Lat Peak E' Dank: 9.1 cm/sec MV dec time: 0.14 sec Lat E/e': 10.3 Procedure A two-dimensional transthoracic echocardiogram with color flow and Doppler was performed. Left Ventricle The left ventricular size, thickness and function are normal. The left ventricular ejection fraction is normal. Ejection Fraction = 60-65%. The left ventricular wall motion is normal. Right Ventricle The right ventricle is normal in size and function. Atria Normal left and right atrial size and function. Mitral Valve There is no mitral regurgitation noted. Tricuspid Valve There is trace tricuspid regurgitation. There was insufficient TR detected to calculate RV systolic p ressure. Aortic Valve No hemodynamically significant valvular aortic stenosis. No aortic regurgitation is present. Pulmonic Valve There is no pulmonic valvular regurgitation. Great Vessels The aortic root is normal size. Pericardium/Pleura There is no pericardial effusion. Interpretation Summary The left ventricular size, thickness and function are normal. The right ventricle is normal in size and function. There is trace tricuspid regurgitation. MD Juan Ramon Funk 05/16/2018 01:23 PM
[2018-05-16] MEDS ORDERED: DEXTROSE 5%-WATER - 50 ML IVPB ONE (13:42)
[2018-05-16] MEDS ORDERED: cefTRIAXone SODIUM 1 GM VIAL ONE (13:42)
[2018-05-16] MEDS: methylPREDNISolone NA SUCC 40 MG/1 ML VIAL IVPUSH SCH ×2 (13:55→18:24)
[2018-05-16] MEDS: LOSARTAN 50MG/HCTZ 12.5MG 1 TAB (FP) PO SCH (13:55)
[2018-05-16] MEDS: CEFTRIAXONE 1 GM in DEXTROSE 5%-WATER - 50 ML IVPB SCH (13:56)
--- NOTE | 2018-05-16 14:24 | EKG ---
Test Reason : Blood Pressure : / mmHG Vent. Rate : 105 BPM Atrial Rate : 105 BPM P-R Int : 148 ms QRS Dur : 084 ms QT Int : 340 ms P-R-T Axes : 035 046 024 degrees QTc Int : 449 ms SINUS TACHYCARDIA POSSIBLE LEFT ATRIAL ENLARGEMENT POSSIBLE ANTERIOR INFARCT (CITED ON OR BEFORE 29-JAN-2018) ABNORMAL ECG WHEN COMPARED WITH ECG OF 29-JAN-2018 14:01, NO SIGNIFICANT CHANGE WAS FOUND Confirmed by FELICIA SKINNER, MELL ([id number]) on 05/16/2018 2:23:38 PM Referred By: Confirmed By:MELL DUARTE MD
[2018-05-16] MEDS: AZITHROMYCIN IVPB 500 MG in DEXTROSE 5%-WATER - 250 ML IVPB SCH (14:47)
--- NOTE | 2018-05-16 16:38 | CONSULT ---
Consult Consult Specialty:: Nephrology Reason for Consultation:: r/o fluid overload - History of Present Illness Chief Complaint: shortness of breath History of Present Illness: Pt is a 62 year old female with pmhx of asthma and HTN who presents to the er with shortness of breath. She says that it has been going on for about a week. She complains of wheezing. 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 She denies lower ext edema. She denies dysuria or hematuria. 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: Migraine, Peripheral Neuropathy (mostly left foot from back problems) , Seizure, Syncope Cardio/Vascular: Yes: CAD (Non-obstructive with myocardial bridge), HTN, Hyperlipdemia Gastrointestinal: Yes: Constipation Musculoskeletal: Yes: Chronic low back pain, Osteoarthritis - Past Surgical History Past Surgical History: Yes: Appendectomy, Colonoscopy (years ago), Joint Replacement (bilateral knees) - Alcohol/Substance Use Hx Alcohol Use: No History of Substance Use: reports: Marijuana (in past, on occasion, last few months ago (planning to get medical card)) - Smoking History Smoking history: Former smoker Have you smoked in the past 12 months: No Aproximately how many cigarettes per day: 0 If you are a former smoker, when did you quit?: 2002 - smoked 1ppwk for about 10 yrs - Social History ADL: Independent History of Recent Travel: No Home Medications - Allergies Allergies/Adverse Reactions: Allergies Allergy/AdvReac Type Severity Reaction Status Date / Time No Known Allergies Allergy Verified 05/15/18 06:59 - Home Medications Home Medications: Ambulatory Orders Gabapentin [Neurontin] 800 mg PO TID 04/11/15 Losartan/Hydrochlorothiazide [Losartan-Hctz 100-25 mg Tablet] 1 each PO DAILY Amlodipine Besylate [Norvasc -] 10 mg PO DAILY #30 tablet 03/27/17 Magnesium Hydrox 2400MG/30Ml [Milk of Magnesia -] 30 ml PO Q8H PRN #1 bottle Phenytoin Na Extended [Dilantin -] 100 mg PO TID #0 cap 09/14/17 Zolpidem Tartrate [Ambien] 10 mg PO HS PRN tablet MDD 1 09/14/17 Metoclopramide HCl [Reglan] 5 mg PO DAILY 12/31/17 Oxycodone HCl/Acetaminophen [Percocet 5-325 mg Tablet] 1 combo PO Q6H PRN #14 tablet MDD 4 12/31/17 Pantoprazole Sodium [Protonix -] 40 mg PO DAILY PRN 12/31/17 Quetiapine Fumarate [Seroquel] 200 tab PO HS 12/31/17 Tizanidine HCl 2 mg PO TID 12/31/17 cloNIDine HCL [Catapres -] 0.1 mg PO TID 12/31/17 Docusate Sodium [Colace -] 100 mg PO BID PRN capsule 01/31/18 Methocarbamol [Robaxin -] 500 mg PO BID #14 tablet 03/23/18 Methylprednisolone [Medrol Dose Reggie] 4 mg PO ASDIR #21 tablet 03/23/18 Family Disease History - Family Disease History Family Disease History: Other: Mother (rheumatoid arthritis) Review of Systems - Review of Systems Constitutional: reports: No Symptoms Eyes: reports: No Symptoms HENT: reports: No Symptoms Cardiovascular: reports: Shortness of Breath. denies: Edema, Palpitations Respiratory: reports: SOB, SOB on Exertion Genitourinary: reports: No Symptoms Musculoskeletal: reports: No Symptoms Integumentary: reports: No Symptoms Neurological: reports: No Symptoms Endocrine: reports: No Symptoms Hematology/Lymphatic: reports: No Symptoms Psychiatric: reports: No Symptoms Physical Exam Vital Signs: Vital Signs Temperature 98.1 F 05/16/18 10:00 Pulse Rate 107 H 05/16/18 14:16 Respiratory Rate 18 05/16/18 10:00 Blood Pressure 116/73 05/16/18 14:16 O2 Sat by Pulse Oximetry (%) 95 05/16/18 10:01 Constitutional: Yes: Calm Eyes: Yes: Conjunctiva Clear HENT: Yes: Atraumatic Neck: Yes: Supple Cardiovascular: Yes: S1, S2 Respiratory: Yes: CTA Bilaterally Gastrointestinal: Yes: Soft Musculoskeletal: Yes: WNL Edema: No Neurological: Yes: Oriented Psychiatric: Yes: Oriented Labs: CBC, BMP 05/16/18 06:30 05/16/18 06:30 Laboratory Tests 05/15/18 05/15/18 05/16/18 08:10 08:10 06:30 WBC 7.5 Hgb 11.6 11.0 Sodium 145 Chloride 111 H Creatinine 0.8 05/16/18 06:30 WBC Hgb Sodium 145 Chloride 112 H Creatinine 0.6 Imaging - Results Cat Scan: Report Reviewed Problem List - Problems (1) Acute asthma exacerbation Code(s): J45.901 - UNSPECIFIED ASTHMA WITH (ACUTE) EXACERBATION Qualifiers: Asthma severity: unspecified severity Asthma persistence: persistent Qualified Code(s): J45.901 - Unspecified asthma with (acute) exacerbation (2) Lung mass Code(s): R91.8 - OTHER NONSPECIFIC ABNORMAL FINDING OF LUNG FIELD Assessment/Plan Current Medications Generic Name Dose Route Start Last Admin Trade Name Freq PRN Reason Stop Dose Admin Acetaminophen 650 mg 05/15/18 15:45 Tylenol - PO Q6H PRN FEVER Albuterol Sulfate 1 amp 05/16/18 11:38 Ventolin 0.083% Nebulizer Soln - NEB Q4HPO PRN SHORT OF BREATH/WHEEZING Albuterol/Ipratropium 1 amp 05/16/18 12:00 05/16/18 16:15 Duoneb - NEB 1 amp RQID SOURAV Administration Amlodipine Besylate 5 mg 05/16/18 10:00 05/16/18 11:09 Norvasc - PO 5 mg DAILY SOURAV Administration Clonidine 0.1 mg 05/15/18 22:00 05/16/18 13:56 Catapres - PO 0.1 mg TID SOURAV Administration Docusate Sodium 300 mg 05/15/18 22:00 05/15/18 22:54 Colace - PO 300 mg HS SOURAV Administration Gabapentin 800 mg 05/15/18 22:00 05/16/18 11:09 Neurontin - PO 800 mg BID SOURAV Administration HCTZ/Losartan Potassium 2 tab 05/16/18 10:00 05/16/18 13:55 Hyzaar - PO 2 tab DAILY SOURAV Administration Heparin Sodium (Porcine) 5,000 unit 05/15/18 22:00 05/16/18 11:09 Heparin - SQ 5,000 unit BID SOURAV Administration Ceftriaxone Sodium 1 gm/ 50 mls @ 100 mls/hr 05/16/18 12:30 05/16/18 13:56 Dextrose IVPB 100 mls/hr DAILY SOURAV Administration Azithromycin 500 mg/ Dextrose 250 mls @ 250 mls/hr 05/16/18 11:45 05/16/18 14 :47 IVPB 05/20/18 10:59 250 mls/hr DAILY SOURAV Administration Magnesium Hydroxide 30 ml 05/15/18 15:45 Milk Of Magnesia - PO Q8H PRN INDIGESTION Methocarbamol 500 mg 05/15/18 22:00 Robaxin - PO BID SOURAV Methylprednisolone Sodium Succinate 40 mg 05/16/18 11:45 05/16/18 13:55 Solu-Medrol - IVPUSH 40 mg Q8H-IV SOURAV Administration Montelukast Sodium 10 mg 05/16/18 22:00 Singulair - PO HS SOURAV Oxycodone HCl 5 mg 05/15/18 15:45 05/16/18 14:11 Roxicodone - PO 5 mg Q4H PRN Administration PAIN LEVEL 6-10 Pantoprazole Sodium 40 mg 05/16/18 10:00 05/16/18 11:09 Protonix - PO 40 mg DAILY SOURAV Administration Phenytoin Sodium 100 mg 05/15/18 22:00 05/16/18 14:04 Dilantin - PO 100 mg TID SOURAV Administration Quetiapine Fumarate 200 mg 05/15/18 22:00 05/15/18 22:54 Seroquel - PO 200 mg HS SOURAV Administration Tizanidine HCl 2 mg 05/15/18 15:45 Tizanidine Hcl PO Q8H PRN MUSCLE SPASMS Zolpidem Tartrate 10 mg 05/15/18 22:00 Ambien - PO HS PRN INSOMNIA Impression 1. asthma 2. lung mass 3. insomnia 4. HTN 5. epilepsy 6. HLD Plan - dyspnea likely due to asthma - pt nor fluid overloaded - cont current meds - check ua - pulm follow up for lung mass Dr Bynum
[2018-05-16] MEDS: MAGNESIUM HYDROX 2400MG/30ML ORAL SUSPENSION 30 ML CUP PO PRN (21:30)
[2018-05-16] MEDS: DOCUSATE SODIUM 100 MG CAPSULE (FP) PO SCH (21:30)
[2018-05-16] MEDS: MONTELUKAST NA 10 MG TABLET PO SCH (21:31)
[2018-05-16] MEDS: QUEtiapine FUMARATE 200 MG TABLET PO SCH (21:32)
[2018-05-16 21:34] LABS: URINE APPEARANCE CLEAR; URINE BILIRUBIN NEGATIVE (<2.0 mg/dL); URINE COLOR STRAW; URINE GLUCOSE (UA) NEGATIVE (NEGATIVE); URINE KETONE NEGATIVE (NEGATIVE); URINE LEUK ESTERASE NEGATIVE (NEGATIVE); URINE NITRITE NEGATIVE (NEGATIVE); URINE PROTEIN NEGATIVE (NEGATIVE); URINE UROBILINOGEN NEGATIVE mg/dL (0.2-1.0)
[2018-05-16] MEDS: ZOLPIDEM TARTRATE 5 MG TABLET PO PRN (23:11)
[2018-05-16] MEDS: BENZOCAINE/MENTH/CETYLPYRD CL 1 EACH LOZENGE MM PRN (23:12)
[2018-05-16] MEDS: ROSUVASTATIN CA 5 MG TABLET (FP) PO SCH (23:12)
[2018-05-16] MEDS: guaiFENesin/D-M SUGAR-FREE/ACLHOL-FREE 118 ML BOTTLE PO PRN (23:16)
[2018-05-17] MEDS: methylPREDNISolone NA SUCC 40 MG/1 ML VIAL IVPUSH SCH ×3 (01:29→17:46)
[2018-05-17] MEDS ORDERED: PT OWN MED DRAWER 7, Y5N ONE ×4 (06:13→20:51)
[2018-05-17] MEDS: PHENYTOIN NA EXTENDED 100 MG CAPSULE (FP) PO SCH ×3 (06:16→21:45)
[2018-05-17] MEDS: cloNIDine HCL 0.1 MG TABLET PO SCH ×3 (06:16→21:45)
[2018-05-17] MEDS: oxyCODONE HCL 5 MG TABLET PO PRN ×3 (07:59→22:47)
--- NOTE | 2018-05-17 08:34 | PN ---
Progress Note, Physician Chief Complaint: Pulmonary consult noted Echo basically normal. - Current Medication List Current Medications: Active Medications Acetaminophen (Tylenol -) 650 mg PO Q6H PRN PRN Reason: FEVER Albuterol Sulfate (Ventolin 0.083% Nebulizer Soln -) 1 amp NEB Q4HPO PRN PRN Reason: SHORT OF BREATH/WHEEZING Albuterol/Ipratropium (Duoneb -) 1 amp NEB RQID [facility] Last Admin: 05/16/18 20:20 Dose: 1 amp Amlodipine Besylate (Norvasc -) 5 mg PO DAILY [facility] Last Admin: 05/16/18 11:09 Dose: 5 mg Benzocaine/Menthol (Cepacol Lozenge -) 1 each MM PRN PRN PRN Reason: SORE THROAT Last Admin: 05/16/18 23:12 Dose: 1 each Clonidine (Catapres -) 0.1 mg PO TID [facility] Last Admin: 05/17/18 06:16 Dose: 0.1 mg Docusate Sodium (Colace -) 300 mg PO HS [facility] Last Admin: 05/16/18 21:30 Dose: 300 mg Gabapentin (Neurontin -) 800 mg PO BID [facility] Last Admin: 05/16/18 21:31 Dose: 800 mg Guaifenesin (Diabetic Tussin Dm -) 10 ml PO Q4H PRN PRN Reason: COUGH Last Admin: 05/16/18 23:16 Dose: 10 ml HCTZ/Losartan Potassium (Hyzaar -) 2 tab PO DAILY [facility] Last Admin: 05/16/18 13:55 Dose: 2 tab Heparin Sodium (Porcine) (Heparin -) 5,000 unit SQ BID [facility] Last Admin: 05/16/18 21:31 Dose: 5,000 unit Ceftriaxone Sodium 1 gm/ (Dextrose) 50 mls @ 100 mls/hr IVPB DAILY [facility] Last Admin: 05/16/18 13:56 Dose: 100 mls/hr Azithromycin 500 mg/ Dextrose 250 mls @ 250 mls/hr IVPB DAILY [facility] Stop: 05/20/18 10:59 Last Admin: 05/16/18 14:47 Dose: 250 mls/hr Magnesium Hydroxide (Milk Of Magnesia -) 30 ml PO Q8H PRN PRN Reason: INDIGESTION Last Admin: 05/16/18 21:30 Dose: 30 ml Methocarbamol (Robaxin -) 500 mg PO BID [facility] Methylprednisolone Sodium Succinate (Solu-Medrol -) 40 mg IVPUSH Q8H-IV [facility] Last Admin: 05/17/18 01:29 Dose: 40 mg Montelukast Sodium (Singulair -) 10 mg PO HS [facility] Last Admin: 05/16/18 21:31 Dose: 10 mg Oxycodone HCl (Roxicodone -) 5 mg PO Q4H PRN PRN Reason: PAIN LEVEL 6-10 Last Admin: 05/17/18 07:59 Dose: 5 mg Pantoprazole Sodium (Protonix -) 40 mg PO DAILY [facility] Last Admin: 05/16/18 11:09 Dose: 40 mg Phenytoin Sodium (Dilantin -) 100 mg PO TID [facility] Last Admin: 05/17/18 06:16 Dose: 100 mg Quetiapine Fumarate (Seroquel -) 200 mg PO HS [facility] Last Admin: 05/16/18 21:32 Dose: 200 mg Rosuvastatin Calcium (Crestor -) 5 mg PO [facility] Last Admin: 05/16/18 23:12 Dose: 5 mg Tizanidine HCl (Tizanidine Hcl) 2 mg PO Q8H PRN PRN Reason: MUSCLE SPASMS Zolpidem Tartrate (Ambien -) 10 mg PO HS PRN PRN Reason: INSOMNIA Last Admin: 05/16/18 23:11 Dose: 10 mg - Objective Vital Signs: Vital Signs Temperature 97.9 F 05/17/18 05:46 Pulse Rate 79 05/17/18 05:46 Respiratory Rate 20 05/17/18 05:46 Blood Pressure 118/77 05/17/18 05:46 O2 Sat by Pulse Oximetry (%) 100 05/16/18 21:00 Constitutional: Yes: No Distress Cardiovascular: Yes: Regular Rate and Rhythm Respiratory: Yes: Rhonchi Gastrointestinal: Yes: Soft Edema: No Neurological: Yes: Alert, Oriented Labs: CBC, BMP 05/16/18 06:30 05/16/18 06:30 Problem List - Problems (1) Acute asthma exacerbation Code(s): J45.901 - UNSPECIFIED ASTHMA WITH (ACUTE) EXACERBATION Qualifiers: Asthma severity: unspecified severity Asthma persistence: persistent Qualified Code(s): J45.901 - Unspecified asthma with (acute) exacerbation (2) Lung mass Code(s): R91.8 - OTHER NONSPECIFIC ABNORMAL FINDING OF LUNG FIELD (3) Hypertension Code(s): I10 - ESSENTIAL (PRIMARY) HYPERTENSION Qualifiers: Hypertension type: essential hypertension Qualified Code(s): I10 - Essential (primary) hypertension Assessment/Plan IMP: Lung mass: infiltrate vs neoplasm Chronic Asthma Cough secondary to above. Chest tightness due to cough and possible mass Chronic HTN REC: 1. Cough/Lung mass vs infiltrate: causing chest discomfort, associated with cough. -As per pulmonary, f/u CT scan 3 months. Will need outpt Pulmonary f/u and d/c summary sent to PMD. 2. HTN: -Well controlled cont home regimen 3. Non-obstx CAD: -ASA 81 -Echo for EF assessment and to r/o pericardial disease was unremarkable. 4. DVT prophylaxis: as per PMD.
[2018-05-17] MEDS: ALBUTEROL SO4 2.5/IPRATROPIUM 0.5 INH SOL 3 ML VIAL.NEB. NEB SCH ×4 (08:45→20:50)
[2018-05-17] MEDS ORDERED: DEXTROSE 5%-WATER - 50 ML IVPB ONE (09:05)
[2018-05-17] MEDS ORDERED: cefTRIAXone SODIUM 1 GM VIAL ONE (09:05)
[2018-05-17] MEDS: GABAPENTIN 400 MG CAPSULE (FP) PO SCH ×2 (09:26→21:44)
[2018-05-17] MEDS: HEPARIN NA (PORCINE) 5,000 UNITS/ML 1ML VIAL SQ SCH ×2 (09:26→21:45)
[2018-05-17] MEDS: CEFTRIAXONE 1 GM in DEXTROSE 5%-WATER - 50 ML IVPB SCH (09:26)
[2018-05-17] MEDS: PANTOPRAZOLE 40 MG TABLET (FP) PO SCH (09:26)
[2018-05-17] MEDS: LOSARTAN 50MG/HCTZ 12.5MG 1 TAB (FP) PO SCH (09:26)
[2018-05-17] MEDS: amLODIPine BESYLATE 5 MG TABLET (FP) PO SCH (09:26)
[2018-05-17] MEDS: AZITHROMYCIN IVPB 500 MG in DEXTROSE 5%-WATER - 250 ML IVPB SCH (10:35)
--- NOTE | 2018-05-17 11:13 | PN ---
Progress Note, Physician Chief Complaint: Asthma Exacerbation History of Present Illness: NAD mildly improved still complaining of cough - Current Medication List Current Medications: Active Medications Acetaminophen (Tylenol -) 650 mg PO Q6H PRN PRN Reason: FEVER Albuterol Sulfate (Ventolin 0.083% Nebulizer Soln -) 1 amp NEB Q4HPO PRN PRN Reason: SHORT OF BREATH/WHEEZING Albuterol/Ipratropium (Duoneb -) 1 amp NEB RQID [facility] Last Admin: 05/17/18 08:45 Dose: 1 amp Amlodipine Besylate (Norvasc -) 5 mg PO DAILY [facility] Last Admin: 05/17/18 09:26 Dose: 5 mg Benzocaine/Menthol (Cepacol Lozenge -) 1 each MM PRN PRN PRN Reason: SORE THROAT Last Admin: 05/16/18 23:12 Dose: 1 each Clonidine (Catapres -) 0.1 mg PO TID [facility] Last Admin: 05/17/18 06:16 Dose: 0.1 mg Docusate Sodium (Colace -) 300 mg PO HS [facility] Last Admin: 05/16/18 21:30 Dose: 300 mg Gabapentin (Neurontin -) 800 mg PO BID [facility] Last Admin: 05/17/18 09:26 Dose: 800 mg Guaifenesin (Diabetic Tussin Dm -) 10 ml PO Q4H PRN PRN Reason: COUGH Last Admin: 05/16/18 23:16 Dose: 10 ml HCTZ/Losartan Potassium (Hyzaar -) 2 tab PO DAILY [facility] Last Admin: 05/17/18 09:26 Dose: 2 tab Heparin Sodium (Porcine) (Heparin -) 5,000 unit SQ BID [facility] Last Admin: 05/17/18 09:26 Dose: 5,000 unit Ceftriaxone Sodium 1 gm/ (Dextrose) 50 mls @ 100 mls/hr IVPB DAILY [facility] Last Admin: 05/17/18 09:26 Dose: 100 mls/hr Azithromycin 500 mg/ Dextrose 250 mls @ 250 mls/hr IVPB DAILY [facility] Stop: 05/20/18 10:59 Last Admin: 05/17/18 10:35 Dose: 250 mls/hr Magnesium Hydroxide (Milk Of Magnesia -) 30 ml PO Q8H PRN PRN Reason: INDIGESTION Last Admin: 05/16/18 21:30 Dose: 30 ml Methocarbamol (Robaxin -) 500 mg PO BID [facility] Methylprednisolone Sodium Succinate (Solu-Medrol -) 40 mg IVPUSH Q8H-IV [facility] Last Admin: 05/17/18 09:26 Dose: 40 mg Montelukast Sodium (Singulair -) 10 mg PO HS [facility] Last Admin: 05/16/18 21:31 Dose: 10 mg Oxycodone HCl (Roxicodone -) 5 mg PO Q4H PRN PRN Reason: PAIN LEVEL 6-10 Last Admin: 05/17/18 07:59 Dose: 5 mg Pantoprazole Sodium (Protonix -) 40 mg PO DAILY [facility] Last Admin: 05/17/18 09:26 Dose: 40 mg Phenytoin Sodium (Dilantin -) 100 mg PO TID [facility] Last Admin: 05/17/18 06:16 Dose: 100 mg Quetiapine Fumarate (Seroquel -) 200 mg PO HS [facility] Last Admin: 05/16/18 21:32 Dose: 200 mg Rosuvastatin Calcium (Crestor -) 5 mg PO [facility] Last Admin: 05/16/18 23:12 Dose: 5 mg Tizanidine HCl (Tizanidine Hcl) 2 mg PO Q8H PRN PRN Reason: MUSCLE SPASMS Zolpidem Tartrate (Ambien -) 10 mg PO HS PRN PRN Reason: INSOMNIA Last Admin: 05/16/18 23:11 Dose: 10 mg - Objective Vital Signs: Vital Signs Temperature 97.9 F 05/17/18 05:46 Pulse Rate 79 05/17/18 05:46 Respiratory Rate 20 05/17/18 05:46 Blood Pressure 118/77 05/17/18 05:46 O2 Sat by Pulse Oximetry (%) 100 05/16/18 21:00 Constitutional: Yes: Well Nourished, No Distress, Calm Cardiovascular: Yes: Regular Rate and Rhythm Respiratory: Yes: Poor Air Entry (diffuse) Gastrointestinal: Yes: Normal Bowel Sounds, Soft, Abdomen, Obese Neurological: Yes: Alert, Oriented Psychiatric: Yes: Alert, Oriented Labs: CBC, BMP 05/16/18 06:30 05/16/18 06:30 Problem List - Problems (1) Acute asthma exacerbation Assessment/Plan: -pulmonary consult appreciated -IV abx -IV steroids -Bronchodilators -Cepacol and tussin for cough Code(s): J45.901 - UNSPECIFIED ASTHMA WITH (ACUTE) EXACERBATION Qualifiers: Asthma severity: unspecified severity Asthma persistence: persistent Qualified Code(s): J45.901 - Unspecified asthma with (acute) exacerbation (2) Lung mass Assessment/Plan: -has had lung mass in the past, had CT done at [facility] in Oct 2017 as per patient -Pulmonary consult -repeat CT chest in 3-4 weeks after abx course Code(s): R91.8 - OTHER NONSPECIFIC ABNORMAL FINDING OF LUNG FIELD (3) Shortness of breath Assessment/Plan: -pulmonary consult appreciated -IV abx -IV steroids -Bronchodilators Code(s): R06.02 - SHORTNESS OF BREATH Assessment/Plan see problem list DVT prophylaxis Pt self ambulatory
--- NOTE | 2018-05-17 13:37 | PN ---
Progress Note (short form) - Note Progress Note: PULMONARY AWAKE/ALERT EATING LUNCH WITH FRIEND APPEARS STABLE ANICTERIC DISTANT BREATH SOUNDS S1S2 BS+ NO EDEMA LABS/MEDS/NOTES/IMAGES REVIEWED Acute Asthma Exacerbation Lung Nodule HTN Hyperlipidemia Chronic Back Pain - IV medrol/O2 PRN - inhaled bronchodilators standing and PRN - empiric antibiotics - repeat CT chest in 3-4 weeks after antibiotic course, if nodule still present or larger will need CT guided needle biopsy - DVT prophylaxis Dang EID MD
[2018-05-17] MEDS: guaiFENesin/D-M SUGAR-FREE/ACLHOL-FREE 118 ML BOTTLE PO PRN (15:00)
[2018-05-17] MEDS: MAGNESIUM HYDROX 2400MG/30ML ORAL SUSPENSION 30 ML CUP PO PRN ×2 (15:00→21:44)
[2018-05-17] MEDS: METHOCARBAMOL 500 MG TABLET PO SCH ×3 (15:32→15:34)
--- NOTE | 2018-05-17 15:36 | PN ---
Progress Note, Physician History of Present Illness: Pt seen and examined. She complains of wheezing. She denies edema or shortness of breath. - Current Medication List Current Medications: Active Medications Acetaminophen (Tylenol -) 650 mg PO Q6H PRN PRN Reason: FEVER Albuterol Sulfate (Ventolin 0.083% Nebulizer Soln -) 1 amp NEB Q4HPO PRN PRN Reason: SHORT OF BREATH/WHEEZING Albuterol/Ipratropium (Duoneb -) 1 amp NEB RQID [facility] Last Admin: 05/17/18 12:00 Dose: 1 amp Amlodipine Besylate (Norvasc -) 5 mg PO DAILY [facility] Last Admin: 05/17/18 09:26 Dose: 5 mg Benzocaine/Menthol (Cepacol Lozenge -) 1 each MM PRN PRN PRN Reason: SORE THROAT Last Admin: 05/16/18 23:12 Dose: 1 each Clonidine (Catapres -) 0.1 mg PO TID [facility] Last Admin: 05/17/18 15:00 Dose: 0.1 mg Docusate Sodium (Colace -) 300 mg PO HS [facility] Last Admin: 05/16/18 21:30 Dose: 300 mg Gabapentin (Neurontin -) 800 mg PO BID [facility] Last Admin: 05/17/18 09:26 Dose: 800 mg Guaifenesin (Diabetic Tussin Dm -) 10 ml PO Q4H PRN PRN Reason: COUGH Last Admin: 05/17/18 15:00 Dose: 10 ml HCTZ/Losartan Potassium (Hyzaar -) 2 tab PO DAILY [facility] Last Admin: 05/17/18 09:26 Dose: 2 tab Heparin Sodium (Porcine) (Heparin -) 5,000 unit SQ BID [facility] Last Admin: 05/17/18 09:26 Dose: 5,000 unit Ceftriaxone Sodium 1 gm/ (Dextrose) 50 mls @ 100 mls/hr IVPB DAILY [facility] Last Admin: 05/17/18 09:26 Dose: 100 mls/hr Azithromycin 500 mg/ Dextrose 250 mls @ 250 mls/hr IVPB DAILY [facility] Stop: 05/20/18 10:59 Last Admin: 05/17/18 10:35 Dose: 250 mls/hr Magnesium Hydroxide (Milk Of Magnesia -) 30 ml PO Q8H PRN PRN Reason: INDIGESTION Last Admin: 05/17/18 15:00 Dose: 30 ml Methylprednisolone Sodium Succinate (Solu-Medrol -) 40 mg IVPUSH Q8H-IV [facility] Last Admin: 05/17/18 09:26 Dose: 40 mg Montelukast Sodium (Singulair -) 10 mg PO HS [facility] Last Admin: 05/16/18 21:31 Dose: 10 mg Oxycodone HCl (Roxicodone -) 5 mg PO Q4H PRN PRN Reason: PAIN LEVEL 6-10 Last Admin: 05/17/18 14:59 Dose: 5 mg Pantoprazole Sodium (Protonix -) 40 mg PO DAILY [facility] Last Admin: 05/17/18 09:26 Dose: 40 mg Phenytoin Sodium (Dilantin -) 100 mg PO TID [facility] Last Admin: 05/17/18 15:03 Dose: 100 mg Quetiapine Fumarate (Seroquel -) 200 mg PO HS [facility] Last Admin: 05/16/18 21:32 Dose: 200 mg Rosuvastatin Calcium (Crestor -) 5 mg PO [facility] Last Admin: 05/16/18 23:12 Dose: 5 mg Tizanidine HCl (Tizanidine Hcl) 2 mg PO Q8H PRN PRN Reason: MUSCLE SPASMS Zolpidem Tartrate (Ambien -) 10 mg PO HS PRN PRN Reason: INSOMNIA Last Admin: 05/16/18 23:11 Dose: 10 mg - Objective Vital Signs: Vital Signs Temperature 98.3 F 05/17/18 15:11 Pulse Rate 101 H 05/17/18 15:11 Respiratory Rate 20 05/17/18 15:11 Blood Pressure 129/77 05/17/18 15:11 O2 Sat by Pulse Oximetry (%) 95 05/17/18 10:00 Constitutional: Yes: Calm Eyes: Yes: Conjunctiva Clear HENT: Yes: Atraumatic Neck: Yes: Supple Cardiovascular: Yes: S1, S2 Respiratory: Yes: Wheezes Gastrointestinal: Yes: Soft Genitourinary: Yes: WNL Musculoskeletal: Yes: WNL Edema: No Neurological: Yes: Oriented Psychiatric: Yes: Oriented Labs: CBC, BMP 05/16/18 06:30 05/16/18 06:30 Problem List - Problems (1) Acute asthma exacerbation Code(s): J45.901 - UNSPECIFIED ASTHMA WITH (ACUTE) EXACERBATION Qualifiers: Asthma severity: unspecified severity Asthma persistence: persistent Qualified Code(s): J45.901 - Unspecified asthma with (acute) exacerbation (2) Lung mass Code(s): R91.8 - OTHER NONSPECIFIC ABNORMAL FINDING OF LUNG FIELD Assessment/Plan Current Medications Generic Name Dose Route Start Last Admin Trade Name Freq PRN Reason Stop Dose Admin Acetaminophen 650 mg 05/15/18 15:45 Tylenol - PO Q6H PRN FEVER Albuterol Sulfate 1 amp 05/16/18 11:38 Ventolin 0.083% Nebulizer Soln - NEB Q4HPO PRN SHORT OF BREATH/WHEEZING Albuterol/Ipratropium 1 amp 05/16/18 12:00 05/17/18 12:00 Duoneb - NEB 1 amp RQID [facility] Administration Amlodipine Besylate 5 mg 05/16/18 10:00 05/17/18 09:26 Norvasc - PO 5 mg DAILY [facility] Administration Benzocaine/Menthol 1 each 05/16/18 21:45 05/16/18 23:12 Cepacol Lozenge - MM 1 each PRN PRN Administration SORE THROAT Clonidine 0.1 mg 05/15/18 22:00 05/17/18 15:00 Catapres - PO 0.1 mg TID [facility] Administration Docusate Sodium 300 mg 05/15/18 22:00 05/16/18 21:30 Colace - PO 300 mg HS [facility] Administration Gabapentin 800 mg 05/15/18 22:00 05/17/18 09:26 Neurontin - PO 800 mg BID [facility] Administration Guaifenesin 10 ml 05/16/18 21:45 05/17/18 15:00 Diabetic Tussin Dm - PO 10 ml Q4H PRN Administration COUGH HCTZ/Losartan Potassium 2 tab 05/16/18 10:00 05/17/18 09:26 Hyzaar - PO 2 tab DAILY [facility] Administration Heparin Sodium (Porcine) 5,000 unit 05/15/18 22:00 05/17/18 09:26 Heparin - SQ 5,000 unit BID [facility] Administration Ceftriaxone Sodium 1 gm/ 50 mls @ 100 mls/hr 05/16/18 12:30 05/17/18 09:26 Dextrose IVPB 100 mls/hr DAILY [facility] Administration Azithromycin 500 mg/ Dextrose 250 mls @ 250 mls/hr 05/16/18 11:45 05/17/18 10 :35 IVPB 05/20/18 10:59 250 mls/hr DAILY [facility] Administration Magnesium Hydroxide 30 ml 05/15/18 15:45 05/17/18 15:00 Milk Of Magnesia - PO 30 ml Q8H PRN Administration INDIGESTION Methylprednisolone Sodium Succinate 40 mg 05/16/18 11:45 05/17/18 09:26 Solu-Medrol - IVPUSH 40 mg Q8H-IV [facility] Administration Montelukast Sodium 10 mg 05/16/18 22:00 05/16/18 21:31 Singulair - PO 10 mg HS [facility] Administration Oxycodone HCl 5 mg 05/15/18 15:45 05/17/18 14:59 Roxicodone - PO 5 mg Q4H PRN Administration PAIN LEVEL 6-10 Pantoprazole Sodium 40 mg 05/16/18 10:00 05/17/18 09:26 Protonix - PO 40 mg DAILY [facility] Administration Phenytoin Sodium 100 mg 05/15/18 22:00 05/17/18 15:03 Dilantin - PO 100 mg TID [facility] Administration Quetiapine Fumarate 200 mg 05/15/18 22:00 05/16/18 21:32 Seroquel - PO 200 mg HS [facility] Administration Rosuvastatin Calcium 5 mg 05/16/18 22:00 05/16/18 23:12 Crestor - PO 5 mg HS [facility] Administration Tizanidine HCl 2 mg 05/15/18 15:45 Tizanidine Hcl PO Q8H PRN MUSCLE SPASMS Zolpidem Tartrate 10 mg 05/15/18 22:00 05/16/18 23:11 Ambien - PO 10 mg HS PRN Administration INSOMNIA Laboratory Tests 05/16/18 21:00 Urine Protein Negative Urine Blood Negative Impression 1. asthma 2. lung mass 3. insomnia 4. HTN 5. epilepsy 6. HLD Plan - ua negative - outpt follow up prn - dyspnea likely due to asthma - pt not fluid overloaded - pulm follow up for lung mass Dr Bynum
[2018-05-17] MEDS: DOCUSATE SODIUM 100 MG CAPSULE (FP) PO SCH (21:44)
[2018-05-17] MEDS: MONTELUKAST NA 10 MG TABLET PO SCH (21:44)
[2018-05-17] MEDS: ZOLPIDEM TARTRATE 5 MG TABLET PO PRN (21:44)
[2018-05-17] MEDS: ROSUVASTATIN CA 5 MG TABLET (FP) PO SCH (21:45)
[2018-05-17] MEDS: QUEtiapine FUMARATE 200 MG TABLET PO SCH (21:45)
[2018-05-18] MEDS: methylPREDNISolone NA SUCC 40 MG/1 ML VIAL IVPUSH SCH ×3 (01:44→21:47)
--- NOTE | 2018-05-18 05:34 | HOSP ---
Subjective - Review of Symptoms Subjective: Was paged by the nurse to the bedside because the patient was having chest pain. Patient endorses a pressure in the midsternal area which is worse when breathing in deeply. Pain does not radiate and is alleviated by staying still. Pulmonary: Yes: Cough, Pleuritic Chest Pain Cardiovascular: Yes: Chest Pain. No: Palpitations, Orthopnea, Edema, Light Headedness Neurological: No: Weakness, Numbness Physical Examination Vital Signs: Vital Signs Temperature 98.0 F 05/17/18 18:00 Pulse Rate 98 H 05/17/18 18:00 Respiratory Rate 19 05/17/18 21:00 Blood Pressure 138/69 05/17/18 18:00 O2 Sat by Pulse Oximetry (%) 96 05/17/18 21:00 Constitutional: Yes: Well Nourished, No Distress, Calm Cardiovascular: Yes: Regular Rate and Rhythm, Murmur (2/6 systolic ejection murmur heard best at RUSB), S1, S2, Other (There is tenderness to palpation at the left sternal border.) Respiratory: Yes: Regular, CTA Bilaterally Peripheral Pulses WNL: Yes Neurological: Yes: Alert, Oriented Psychiatric: Yes: Alert, Oriented Labs: CBC, BMP 05/16/18 06:30 05/16/18 06:30 Hospitalist Encounter Assessment: Due to the fact that the pain is exacerbated by deep breathing and is reproducible on palpation, it is likely that the patient's pain is secondary to costochondritis, though ACS must be ruled out. Recommendations/Interventions: EKG ordered stat. Troponin ordered stat. Will follow. Visit type - Emergency Visit Emergency Visit: Yes ED Registration Date: 05/15/18 Care time: The patient presented to the Emergency Department on the above date and was hospitalized for further evaluation of their emergent condition. - New Patient This patient is new to me today: Yes Date on this admission: 05/18/18 - Critical Care Critical Care patient: No
[2018-05-18] MEDS: cloNIDine HCL 0.1 MG TABLET PO SCH ×3 (06:20→21:43)
[2018-05-18] MEDS: PHENYTOIN NA EXTENDED 100 MG CAPSULE (FP) PO SCH ×3 (06:20→21:46)
[2018-05-18] MEDS: ALBUTEROL SO4 2.5/IPRATROPIUM 0.5 INH SOL 3 ML VIAL.NEB. NEB SCH ×4 (09:24→20:11)
[2018-05-18] MEDS: oxyCODONE HCL 5 MG TABLET PO PRN ×2 (10:45→19:48)
[2018-05-18] MEDS: AZITHROMYCIN IVPB 500 MG in DEXTROSE 5%-WATER - 250 ML IVPB SCH (10:45)
[2018-05-18] MEDS: amLODIPine BESYLATE 5 MG TABLET (FP) PO SCH (10:45)
[2018-05-18] MEDS: HEPARIN NA (PORCINE) 5,000 UNITS/ML 1ML VIAL SQ SCH ×2 (10:45→21:47)
[2018-05-18] MEDS: GABAPENTIN 400 MG CAPSULE (FP) PO SCH ×2 (10:45→21:44)
[2018-05-18] MEDS: LOSARTAN 50MG/HCTZ 12.5MG 1 TAB (FP) PO SCH (10:45)
[2018-05-18] MEDS: CEFTRIAXONE 1 GM in DEXTROSE 5%-WATER - 50 ML IVPB SCH (10:45)
[2018-05-18] MEDS: PANTOPRAZOLE 40 MG TABLET (FP) PO SCH (10:45)
[2018-05-18] MEDS ORDERED: DEXTROSE 5%-WATER - 50 ML IVPB ONE (11:04)
[2018-05-18] MEDS ORDERED: PT OWN MED DRAWER 7, Y5N ONE ×3 (11:04→23:00)
[2018-05-18] MEDS ORDERED: cefTRIAXone SODIUM 1 GM VIAL ONE (11:04)
--- NOTE | 2018-05-18 11:24 | EKG ---
Test Reason : Blood Pressure : / mmHG Vent. Rate : 078 BPM Atrial Rate : 078 BPM P-R Int : 160 ms QRS Dur : 088 ms QT Int : 382 ms P-R-T Axes : 033 034 012 degrees QTc Int : 435 ms NORMAL SINUS RHYTHM POSSIBLE LEFT ATRIAL ENLARGEMENT BORDERLINE ECG WHEN COMPARED WITH ECG OF 15-MAY-2018 07:15, NONSPECIFIC T WAVE ABNORMALITY NO LONGER EVIDENT IN LATERAL LEADS Confirmed by STEVAN SKINNER, PIOTR ([id number]) on 05/18/2018 11:24:29 AM Referred By: Confirmed By:PIOTR CALLES MD
--- NOTE | 2018-05-18 13:14 | PN ---
Progress Note, Physician - Current Medication List Current Medications: Active Medications Acetaminophen (Tylenol -) 650 mg PO Q6H PRN PRN Reason: FEVER Albuterol Sulfate (Ventolin 0.083% Nebulizer Soln -) 1 amp NEB Q4HPO PRN PRN Reason: SHORT OF BREATH/WHEEZING Albuterol/Ipratropium (Duoneb -) 1 amp NEB RQID [facility] Last Admin: 05/18/18 12:10 Dose: 1 amp Amlodipine Besylate (Norvasc -) 5 mg PO DAILY [facility] Last Admin: 05/17/18 09:26 Dose: 5 mg Benzocaine/Menthol (Cepacol Lozenge -) 1 each MM PRN PRN PRN Reason: SORE THROAT Last Admin: 05/16/18 23:12 Dose: 1 each Clonidine (Catapres -) 0.1 mg PO TID [facility] Last Admin: 05/18/18 06:20 Dose: 0.1 mg Docusate Sodium (Colace -) 300 mg PO HS [facility] Last Admin: 05/17/18 21:44 Dose: 300 mg Gabapentin (Neurontin -) 800 mg PO BID [facility] Last Admin: 05/17/18 21:44 Dose: 800 mg Guaifenesin (Diabetic Tussin Dm -) 10 ml PO Q4H PRN PRN Reason: COUGH Last Admin: 05/17/18 15:00 Dose: 10 ml HCTZ/Losartan Potassium (Hyzaar -) 2 tab PO DAILY [facility] Last Admin: 05/17/18 09:26 Dose: 2 tab Heparin Sodium (Porcine) (Heparin -) 5,000 unit SQ BID [facility] Last Admin: 05/17/18 21:45 Dose: 5,000 unit Ceftriaxone Sodium 1 gm/ (Dextrose) 50 mls @ 100 mls/hr IVPB DAILY [facility] Last Admin: 05/17/18 09:26 Dose: 100 mls/hr Azithromycin 500 mg/ Dextrose 250 mls @ 250 mls/hr IVPB DAILY [facility] Stop: 05/20/18 10:59 Last Admin: 05/17/18 10:35 Dose: 250 mls/hr Magnesium Hydroxide (Milk Of Magnesia -) 30 ml PO Q8H PRN PRN Reason: INDIGESTION Last Admin: 05/17/18 21:44 Dose: 30 ml Methylprednisolone Sodium Succinate (Solu-Medrol -) 40 mg IVPUSH Q8H-IV [facility] Last Admin: 05/18/18 01:44 Dose: 40 mg Montelukast Sodium (Singulair -) 10 mg PO HS [facility] Last Admin: 05/17/18 21:44 Dose: 10 mg Oxycodone HCl (Roxicodone -) 5 mg PO Q4H PRN PRN Reason: PAIN LEVEL 6-10 Last Admin: 05/17/18 22:47 Dose: 5 mg Pantoprazole Sodium (Protonix -) 40 mg PO DAILY [facility] Last Admin: 05/17/18 09:26 Dose: 40 mg Phenytoin Sodium (Dilantin -) 100 mg PO TID [facility] Last Admin: 05/18/18 06:20 Dose: 100 mg Quetiapine Fumarate (Seroquel -) 200 mg PO HS [facility] Last Admin: 05/17/18 21:45 Dose: 200 mg Rosuvastatin Calcium (Crestor -) 5 mg PO HS [facility] Last Admin: 05/17/18 21:45 Dose: 5 mg Tizanidine HCl (Tizanidine Hcl) 2 mg PO Q8H PRN PRN Reason: MUSCLE SPASMS Zolpidem Tartrate (Ambien -) 10 mg PO HS PRN PRN Reason: INSOMNIA Last Admin: 05/17/18 21:44 Dose: 10 mg - Objective Vital Signs: Vital Signs Temperature 97.9 F 05/18/18 11:01 Pulse Rate 96 H 05/18/18 11:01 Respiratory Rate 19 05/18/18 11:01 Blood Pressure 125/86 05/18/18 11:01 O2 Sat by Pulse Oximetry (%) 96 05/17/18 21:00 Labs: CBC, BMP 05/16/18 06:30 05/16/18 06:30 Problem List - Problems (1) Acute asthma exacerbation Assessment/Plan: -pulmonary consult appreciated -IV abx -IV steroids -Bronchodilators -Cepacol and tussin for cough Code(s): J45.901 - UNSPECIFIED ASTHMA WITH (ACUTE) EXACERBATION Qualifiers: Asthma severity: unspecified severity Asthma persistence: persistent Qualified Code(s): J45.901 - Unspecified asthma with (acute) exacerbation (2) Lung mass Assessment/Plan: -has had lung mass in the past, had CT done at [facility] in Oct 2017 as per patient -Pulmonary consult -repeat CT chest in 3-4 weeks after abx course Code(s): R91.8 - OTHER NONSPECIFIC ABNORMAL FINDING OF LUNG FIELD (3) Shortness of breath Assessment/Plan: -pulmonary consult appreciated -IV abx -IV steroids -Bronchodilators Code(s): R06.02 - SHORTNESS OF BREATH (4) Chest pain Assessment/Plan: -Resolved -Ce negative--repeat -Cardio Code(s): R07.9 - CHEST PAIN, UNSPECIFIED Qualifiers: Chest pain type: other chest pain Qualified Code(s): R07.89 - Other chest pain
--- NOTE | 2018-05-18 13:24 | PN ---
Progress Note (short form) - Note Progress Note: PULMONARY States breathing slightly better today. Report from [facility] showing REMY nodule as well similar in size. Vital Signs Period Temp Pulse Resp BP Sys/Blackburn Pulse Ox Last 24 Hr 97.9 F-98.3 F 61-101 19-20 125-155/69-93 96 Gen: NAD at rest Heart: RRR Lung: scattered rhonchi Abd: soft, nontender Ext: no edema CBC, BMP 05/16/18 06:30 05/16/18 06:30 Active Medications Acetaminophen (Tylenol -) 650 mg PO Q6H PRN PRN Reason: FEVER Albuterol Sulfate (Ventolin 0.083% Nebulizer Soln -) 1 amp NEB Q4HPO PRN PRN Reason: SHORT OF BREATH/WHEEZING Albuterol/Ipratropium (Duoneb -) 1 amp NEB RQID [facility] Last Admin: 05/18/18 12:10 Dose: 1 amp Amlodipine Besylate (Norvasc -) 5 mg PO DAILY [facility] Last Admin: 05/17/18 09:26 Dose: 5 mg Benzocaine/Menthol (Cepacol Lozenge -) 1 each MM PRN PRN PRN Reason: SORE THROAT Last Admin: 05/16/18 23:12 Dose: 1 each Clonidine (Catapres -) 0.1 mg PO TID [facility] Last Admin: 05/18/18 06:20 Dose: 0.1 mg Docusate Sodium (Colace -) 300 mg PO HS [facility] Last Admin: 05/17/18 21:44 Dose: 300 mg Gabapentin (Neurontin -) 800 mg PO BID [facility] Last Admin: 05/17/18 21:44 Dose: 800 mg Guaifenesin (Diabetic Tussin Dm -) 10 ml PO Q4H PRN PRN Reason: COUGH Last Admin: 05/17/18 15:00 Dose: 10 ml HCTZ/Losartan Potassium (Hyzaar -) 2 tab PO DAILY [facility] Last Admin: 05/17/18 09:26 Dose: 2 tab Heparin Sodium (Porcine) (Heparin -) 5,000 unit SQ BID [facility] Last Admin: 05/17/18 21:45 Dose: 5,000 unit Ceftriaxone Sodium 1 gm/ (Dextrose) 50 mls @ 100 mls/hr IVPB DAILY [facility] Last Admin: 05/17/18 09:26 Dose: 100 mls/hr Azithromycin 500 mg/ Dextrose 250 mls @ 250 mls/hr IVPB DAILY [facility] Stop: 05/20/18 10:59 Last Admin: 05/17/18 10:35 Dose: 250 mls/hr Magnesium Hydroxide (Milk Of Magnesia -) 30 ml PO Q8H PRN PRN Reason: INDIGESTION Last Admin: 05/17/18 21:44 Dose: 30 ml Methylprednisolone Sodium Succinate (Solu-Medrol -) 40 mg IVPUSH Q8H-IV [facility] Last Admin: 05/18/18 01:44 Dose: 40 mg Montelukast Sodium (Singulair -) 10 mg PO HS [facility] Last Admin: 05/17/18 21:44 Dose: 10 mg Oxycodone HCl (Roxicodone -) 5 mg PO Q4H PRN PRN Reason: PAIN LEVEL 6-10 Last Admin: 05/17/18 22:47 Dose: 5 mg Pantoprazole Sodium (Protonix -) 40 mg PO DAILY [facility] Last Admin: 05/17/18 09:26 Dose: 40 mg Phenytoin Sodium (Dilantin -) 100 mg PO TID [facility] Last Admin: 05/18/18 06:20 Dose: 100 mg Quetiapine Fumarate (Seroquel -) 200 mg PO HS [facility] Last Admin: 05/17/18 21:45 Dose: 200 mg Rosuvastatin Calcium (Crestor -) 5 mg PO HS [facility] Last Admin: 05/17/18 21:45 Dose: 5 mg Tizanidine HCl (Tizanidine Hcl) 2 mg PO Q8H PRN PRN Reason: MUSCLE SPASMS Zolpidem Tartrate (Ambien -) 10 mg PO HS PRN PRN Reason: INSOMNIA Last Admin: 05/17/18 21:44 Dose: 10 mg A/P Acute Asthma Exacerbation Lung Nodule HTN Hyperlipidemia Chronic Back Pain - will decrease medrol to q12h - inhaled bronchodilators standing and PRN - empiric antibiotics - will need outpt PET scan (Rx given) - DVT prophylaxis Problem List - Problems (1) Acute asthma exacerbation Code(s): J45.901 - UNSPECIFIED ASTHMA WITH (ACUTE) EXACERBATION Qualifiers: Asthma severity: unspecified severity Asthma persistence: persistent Qualified Code(s): J45.901 - Unspecified asthma with (acute) exacerbation (2) Lung nodule Code(s): R91.1 - SOLITARY PULMONARY NODULE
--- NOTE | 2018-05-18 19:46 | EKG ---
Test Reason : Blood Pressure : / mmHG Vent. Rate : 089 BPM Atrial Rate : 089 BPM P-R Int : 154 ms QRS Dur : 086 ms QT Int : 366 ms P-R-T Axes : 040 042 010 degrees QTc Int : 445 ms NORMAL SINUS RHYTHM POSSIBLE LEFT ATRIAL ENLARGEMENT BORDERLINE ECG WHEN COMPARED WITH ECG OF 18-MAY-2018 06:17, NO SIGNIFICANT CHANGE WAS FOUND Confirmed by PIOTR CALLES MD ([id number]) on 05/18/2018 7:46:07 PM Referred By: Chris DRIVER Confirmed By:PIOTR CALLES MD
[2018-05-18] MEDS: ZOLPIDEM TARTRATE 5 MG TABLET PO PRN (21:42)
[2018-05-18] MEDS: DOCUSATE SODIUM 100 MG CAPSULE (FP) PO SCH (21:43)
[2018-05-18] MEDS: MONTELUKAST NA 10 MG TABLET PO SCH (21:44)
[2018-05-18] MEDS: ROSUVASTATIN CA 5 MG TABLET (FP) PO SCH (21:46)
[2018-05-18] MEDS: QUEtiapine FUMARATE 200 MG TABLET PO SCH (21:47)
[2018-05-18] MEDS: guaiFENesin/D-M SUGAR-FREE/ACLHOL-FREE 118 ML BOTTLE PO PRN (23:03)
[2018-05-19] MEDS: PHENYTOIN NA EXTENDED 100 MG CAPSULE (FP) PO SCH ×3 (05:58→22:05)
[2018-05-19] MEDS: cloNIDine HCL 0.1 MG TABLET PO SCH ×3 (05:58→22:04)
[2018-05-19] MEDS ORDERED: PT OWN MED DRAWER 7, Y5N ONE ×3 (06:04→13:56)
[2018-05-19] MEDS: ALBUTEROL SO4 2.5/IPRATROPIUM 0.5 INH SOL 3 ML VIAL.NEB. NEB SCH ×4 (08:40→20:17)
[2018-05-19] MEDS ORDERED: cefTRIAXone SODIUM 1 GM VIAL ONE (09:41)
[2018-05-19] MEDS ORDERED: DEXTROSE 5%-WATER - 50 ML IVPB ONE (09:41)
[2018-05-19] MEDS: AZITHROMYCIN IVPB 500 MG in DEXTROSE 5%-WATER - 250 ML IVPB SCH (09:59)
[2018-05-19] MEDS: CEFTRIAXONE 1 GM in DEXTROSE 5%-WATER - 50 ML IVPB SCH (09:59)
[2018-05-19] MEDS: HEPARIN NA (PORCINE) 5,000 UNITS/ML 1ML VIAL SQ SCH ×2 (10:00→22:05)
[2018-05-19] MEDS: methylPREDNISolone NA SUCC 40 MG/1 ML VIAL IVPUSH SCH ×2 (10:00→22:06)
[2018-05-19] MEDS: GABAPENTIN 400 MG CAPSULE (FP) PO SCH ×2 (10:00→22:05)
[2018-05-19] MEDS: amLODIPine BESYLATE 5 MG TABLET (FP) PO SCH (10:02)
[2018-05-19] MEDS: PANTOPRAZOLE 40 MG TABLET (FP) PO SCH (10:02)
[2018-05-19] MEDS: oxyCODONE HCL 5 MG TABLET PO PRN ×3 (10:03→20:41)
[2018-05-19] MEDS: LOSARTAN 50MG/HCTZ 12.5MG 1 TAB (FP) PO SCH (10:03)
[2018-05-19] MEDS: guaiFENesin/D-M SUGAR-FREE/ACLHOL-FREE 118 ML BOTTLE PO PRN ×2 (10:04→20:16)
--- NOTE | 2018-05-19 11:21 | PN ---
Progress Note (short form) - Note Progress Note: PULMONARY States breathing slightly better today. +nonproductive cough. Report from [facility] showing REMY nodule similar in size. Vital Signs Period Temp Pulse Resp BP Sys/Blackburn Pulse Ox Last 24 Hr 97.7 F-98.2 F 77-93 17-19 107-119/67-80 95 Gen: NAD at rest Heart: RRR Lung: scattered rhonchi Abd: soft, nontender Ext: no edema CBC, BMP 05/16/18 06:30 05/16/18 06:30 Active Medications Acetaminophen (Tylenol -) 650 mg PO Q6H PRN PRN Reason: FEVER Albuterol Sulfate (Ventolin 0.083% Nebulizer Soln -) 1 amp NEB Q4HPO PRN PRN Reason: SHORT OF BREATH/WHEEZING Albuterol/Ipratropium (Duoneb -) 1 amp NEB RQID [facility] Last Admin: 05/19/18 08:40 Dose: 1 amp Amlodipine Besylate (Norvasc -) 5 mg PO DAILY [facility] Last Admin: 05/19/18 10:02 Dose: 5 mg Benzocaine/Menthol (Cepacol Lozenge -) 1 each MM PRN PRN PRN Reason: SORE THROAT Last Admin: 05/16/18 23:12 Dose: 1 each Clonidine (Catapres -) 0.1 mg PO TID [facility] Last Admin: 05/19/18 05:58 Dose: 0.1 mg Docusate Sodium (Colace -) 300 mg PO HS [facility] Last Admin: 05/18/18 21:43 Dose: 300 mg Gabapentin (Neurontin -) 800 mg PO BID [facility] Last Admin: 05/19/18 10:00 Dose: 800 mg Guaifenesin (Diabetic Tussin Dm -) 10 ml PO Q4H PRN PRN Reason: COUGH Last Admin: 05/19/18 10:04 Dose: 10 ml HCTZ/Losartan Potassium (Hyzaar -) 2 tab PO DAILY [facility] Last Admin: 05/19/18 10:03 Dose: 2 tab Heparin Sodium (Porcine) (Heparin -) 5,000 unit SQ BID [facility] Last Admin: 05/19/18 10:00 Dose: 5,000 unit Ceftriaxone Sodium 1 gm/ (Dextrose) 50 mls @ 100 mls/hr IVPB DAILY [facility] Last Admin: 05/19/18 09:59 Dose: 100 mls/hr Azithromycin 500 mg/ Dextrose 250 mls @ 250 mls/hr IVPB DAILY [facility] Stop: 05/20/18 10:59 Last Admin: 05/19/18 09:59 Dose: 250 mls/hr Magnesium Hydroxide (Milk Of Magnesia -) 30 ml PO Q8H PRN PRN Reason: INDIGESTION Last Admin: 05/17/18 21:44 Dose: 30 ml Methylprednisolone Sodium Succinate (Solu-Medrol -) 40 mg IVPUSH BID [facility] Last Admin: 05/19/18 10:00 Dose: 40 mg Montelukast Sodium (Singulair -) 10 mg PO HS [facility] Last Admin: 05/18/18 21:44 Dose: 10 mg Oxycodone HCl (Roxicodone -) 5 mg PO Q4H PRN PRN Reason: PAIN LEVEL 6-10 Last Admin: 05/19/18 10:03 Dose: 5 mg Pantoprazole Sodium (Protonix -) 40 mg PO DAILY [facility] Last Admin: 05/19/18 10:02 Dose: 40 mg Phenytoin Sodium (Dilantin -) 100 mg PO TID [facility] Last Admin: 05/19/18 05:58 Dose: 100 mg Quetiapine Fumarate (Seroquel -) 200 mg PO HS [facility] Last Admin: 05/18/18 21:47 Dose: 200 mg Rosuvastatin Calcium (Crestor -) 5 mg PO [facility] Last Admin: 05/18/18 21:46 Dose: 5 mg Tizanidine HCl (Tizanidine Hcl) 2 mg PO Q8H PRN PRN Reason: MUSCLE SPASMS A/P Acute Asthma Exacerbation Lung Nodule HTN Hyperlipidemia Chronic Back Pain - continue medrol q12h - inhaled bronchodilators standing and PRN - empiric antibiotics - will need outpt PET scan (Rx given) - DVT prophylaxis Problem List - Problems (1) Acute asthma exacerbation Code(s): J45.901 - UNSPECIFIED ASTHMA WITH (ACUTE) EXACERBATION Qualifiers: Asthma severity: unspecified severity Asthma persistence: persistent Qualified Code(s): J45.901 - Unspecified asthma with (acute) exacerbation (2) Lung nodule Code(s): R91.1 - SOLITARY PULMONARY NODULE
[2018-05-19] MEDS ORDERED: guaiFENesin 600 MG TABLET.ER (FP) PO SCH (11:30)
--- NOTE | 2018-05-19 11:52 | PN ---
Progress Note, Physician History of Present Illness: No cp c/o cough--improving - Current Medication List Current Medications: Active Medications Acetaminophen (Tylenol -) 650 mg PO Q6H PRN PRN Reason: FEVER Albuterol Sulfate (Ventolin 0.083% Nebulizer Soln -) 1 amp NEB Q4HPO PRN PRN Reason: SHORT OF BREATH/WHEEZING Albuterol/Ipratropium (Duoneb -) 1 amp NEB RQID [facility] Last Admin: 05/19/18 08:40 Dose: 1 amp Amlodipine Besylate (Norvasc -) 5 mg PO DAILY [facility] Last Admin: 05/19/18 10:02 Dose: 5 mg Benzocaine/Menthol (Cepacol Lozenge -) 1 each MM PRN PRN PRN Reason: SORE THROAT Last Admin: 05/16/18 23:12 Dose: 1 each Clonidine (Catapres -) 0.1 mg PO TID [facility] Last Admin: 05/19/18 05:58 Dose: 0.1 mg Docusate Sodium (Colace -) 300 mg PO HS [facility] Last Admin: 05/18/18 21:43 Dose: 300 mg Gabapentin (Neurontin -) 800 mg PO BID [facility] Last Admin: 05/19/18 10:00 Dose: 800 mg Guaifenesin (Diabetic Tussin Dm -) 10 ml PO Q4H PRN PRN Reason: COUGH Last Admin: 05/19/18 10:04 Dose: 10 ml Guaifenesin (Mucinex -) 1,200 mg PO BID [facility] Last Admin: 05/19/18 11:46 Dose: 1,200 mg HCTZ/Losartan Potassium (Hyzaar -) 2 tab PO DAILY [facility] Last Admin: 05/19/18 10:03 Dose: 2 tab Heparin Sodium (Porcine) (Heparin -) 5,000 unit SQ BID [facility] Last Admin: 05/19/18 10:00 Dose: 5,000 unit Ceftriaxone Sodium 1 gm/ (Dextrose) 50 mls @ 100 mls/hr IVPB DAILY [facility] Last Admin: 05/19/18 09:59 Dose: 100 mls/hr Azithromycin 500 mg/ Dextrose 250 mls @ 250 mls/hr IVPB DAILY [facility] Stop: 05/20/18 10:59 Last Admin: 05/19/18 09:59 Dose: 250 mls/hr Magnesium Hydroxide (Milk Of Magnesia -) 30 ml PO Q8H PRN PRN Reason: INDIGESTION Last Admin: 05/17/18 21:44 Dose: 30 ml Methylprednisolone Sodium Succinate (Solu-Medrol -) 40 mg IVPUSH BID [facility] Last Admin: 05/19/18 10:00 Dose: 40 mg Montelukast Sodium (Singulair -) 10 mg PO [facility] Last Admin: 05/18/18 21:44 Dose: 10 mg Oxycodone HCl (Roxicodone -) 5 mg PO Q4H PRN PRN Reason: PAIN LEVEL 6-10 Last Admin: 05/19/18 10:03 Dose: 5 mg Pantoprazole Sodium (Protonix -) 40 mg PO DAILY [facility] Last Admin: 05/19/18 10:02 Dose: 40 mg Phenytoin Sodium (Dilantin -) 100 mg PO TID [facility] Last Admin: 05/19/18 05:58 Dose: 100 mg Quetiapine Fumarate (Seroquel -) 200 mg PO [facility] Last Admin: 05/18/18 21:47 Dose: 200 mg Rosuvastatin Calcium (Crestor -) 5 mg PO [facility] Last Admin: 05/18/18 21:46 Dose: 5 mg Tizanidine HCl (Tizanidine Hcl) 2 mg PO Q8H PRN PRN Reason: MUSCLE SPASMS - Objective Vital Signs: Vital Signs Temperature 97.8 F 05/19/18 10:16 Pulse Rate 86 05/19/18 10:16 Respiratory Rate 19 05/19/18 10:16 Blood Pressure 118/80 05/19/18 10:16 O2 Sat by Pulse Oximetry (%) 95 05/18/18 21:00 Cardiovascular: Yes: S1, S2 Respiratory: Yes: Diminished, Rhonchi Gastrointestinal: Yes: Normal Bowel Sounds, Soft Labs: CBC, BMP 05/16/18 06:30 05/16/18 06:30 Problem List - Problems (1) Acute asthma exacerbation Assessment/Plan: -pulmonary consult appreciated -IV abx -IV steroids -Bronchodilators -Cepacol and tussin for cough Code(s): J45.901 - UNSPECIFIED ASTHMA WITH (ACUTE) EXACERBATION Qualifiers: Asthma severity: unspecified severity Asthma persistence: persistent Qualified Code(s): J45.901 - Unspecified asthma with (acute) exacerbation (2) Lung mass Assessment/Plan: -has had lung mass in the past, had CT done at [facility] in Oct 2017 as per patient -Pulmonary consult -repeat CT chest in 3-4 weeks after abx course---Or pet scan Code(s): R91.8 - OTHER NONSPECIFIC ABNORMAL FINDING OF LUNG FIELD (3) Shortness of breath Assessment/Plan: -pulmonary consult appreciated -IV abx -IV steroids -Bronchodilators Code(s): R06.02 - SHORTNESS OF BREATH (4) Chest pain Assessment/Plan: -Resolved -Ce negative--repeat -Cardio Code(s): R07.9 - CHEST PAIN, UNSPECIFIED Qualifiers: Chest pain type: other chest pain Qualified Code(s): R07.89 - Other chest pain
[2018-05-19] MEDS: guaiFENesin 600 MG TABLET.ER (FP) PO SCH ×2 (14:02→22:05)
[2018-05-19] MEDS: DOCUSATE SODIUM 100 MG CAPSULE (FP) PO SCH (22:04)
[2018-05-19] MEDS: ROSUVASTATIN CA 5 MG TABLET (FP) PO SCH (22:05)
[2018-05-19] MEDS: QUEtiapine FUMARATE 200 MG TABLET PO SCH (22:05)
[2018-05-19] MEDS: MONTELUKAST NA 10 MG TABLET PO SCH (22:06)
[2018-05-19] MEDS ORDERED: ZOLPIDEM TARTRATE 5 MG TABLET PO ONE (22:45)
[2018-05-20] MEDS: oxyCODONE HCL 5 MG TABLET PO PRN ×3 (00:21→14:44)
[2018-05-20] MEDS: TIZANIDINE HCL 2 MG TABLET PO PRN ×2 (00:22→21:14)
[2018-05-20] MEDS: PHENYTOIN NA EXTENDED 100 MG CAPSULE (FP) PO SCH ×3 (06:59→21:13)
[2018-05-20] MEDS: cloNIDine HCL 0.1 MG TABLET PO SCH ×3 (06:59→21:12)
[2018-05-20] MEDS: ALBUTEROL SO4 2.5/IPRATROPIUM 0.5 INH SOL 3 ML VIAL.NEB. NEB SCH ×4 (07:30→20:50)
[2018-05-20] MEDS ORDERED: PT OWN MED DRAWER 7, Y5N ONE ×4 (07:38→21:02)
[2018-05-20] MEDS ORDERED: DEXTROSE 5%-WATER - 50 ML IVPB ONE (09:16)
[2018-05-20] MEDS ORDERED: cefTRIAXone SODIUM 1 GM VIAL ONE (09:16)
[2018-05-20] MEDS: HEPARIN NA (PORCINE) 5,000 UNITS/ML 1ML VIAL SQ SCH ×2 (09:29→21:12)
[2018-05-20] MEDS: amLODIPine BESYLATE 5 MG TABLET (FP) PO SCH (09:30)
[2018-05-20] MEDS: PANTOPRAZOLE 40 MG TABLET (FP) PO SCH (09:31)
[2018-05-20] MEDS: GABAPENTIN 400 MG CAPSULE (FP) PO SCH ×2 (09:31→21:12)
[2018-05-20] MEDS: LOSARTAN 50MG/HCTZ 12.5MG 1 TAB (FP) PO SCH (09:31)
[2018-05-20] MEDS: guaiFENesin 600 MG TABLET.ER (FP) PO SCH ×2 (09:32→21:12)
[2018-05-20] MEDS: methylPREDNISolone NA SUCC 40 MG/1 ML VIAL IVPUSH SCH ×3 (09:33→21:11)
[2018-05-20] MEDS: AZITHROMYCIN IVPB 500 MG in DEXTROSE 5%-WATER - 250 ML IVPB SCH (09:33)
[2018-05-20] MEDS: CEFTRIAXONE 1 GM in DEXTROSE 5%-WATER - 50 ML IVPB SCH (11:30)
--- NOTE | 2018-05-20 11:30 | PN ---
Progress Note, Physician Chief Complaint: Asthma Exacerbation History of Present Illness: NAD mildly improved still complaining of cough and mid-sternal musculoskelatal chest pain 2/2 to cough Already on muscle relaxers and oxycodone - Current Medication List Current Medications: Active Medications Acetaminophen (Tylenol -) 650 mg PO Q6H PRN PRN Reason: FEVER Albuterol Sulfate (Ventolin 0.083% Nebulizer Soln -) 1 amp NEB Q4HPO PRN PRN Reason: SHORT OF BREATH/WHEEZING Albuterol/Ipratropium (Duoneb -) 1 amp NEB RQID [facility] Last Admin: 05/20/18 07:30 Dose: 1 amp Amlodipine Besylate (Norvasc -) 5 mg PO DAILY [facility] Last Admin: 05/20/18 09:30 Dose: 5 mg Benzocaine/Menthol (Cepacol Lozenge -) 1 each MM PRN PRN PRN Reason: SORE THROAT Last Admin: 05/16/18 23:12 Dose: 1 each Clonidine (Catapres -) 0.1 mg PO TID [facility] Last Admin: 05/20/18 06:59 Dose: 0.1 mg Docusate Sodium (Colace -) 300 mg PO HS [facility] Last Admin: 05/19/18 22:04 Dose: 300 mg Gabapentin (Neurontin -) 800 mg PO BID [facility] Last Admin: 05/20/18 09:31 Dose: 800 mg Guaifenesin (Diabetic Tussin Dm -) 10 ml PO Q4H PRN PRN Reason: COUGH Last Admin: 05/19/18 20:16 Dose: 10 ml Guaifenesin (Mucinex -) 600 mg PO BID [facility] Last Admin: 05/20/18 09:32 Dose: 600 mg HCTZ/Losartan Potassium (Hyzaar -) 2 tab PO DAILY [facility] Last Admin: 05/20/18 09:31 Dose: 2 tab Heparin Sodium (Porcine) (Heparin -) 5,000 unit SQ BID [facility] Last Admin: 05/20/18 09:29 Dose: 5,000 unit Ceftriaxone Sodium 1 gm/ (Dextrose) 50 mls @ 100 mls/hr IVPB DAILY [facility] Last Admin: 05/19/18 09:59 Dose: 100 mls/hr Magnesium Hydroxide (Milk Of Magnesia -) 30 ml PO Q8H PRN PRN Reason: INDIGESTION Last Admin: 05/17/18 21:44 Dose: 30 ml Methylprednisolone Sodium Succinate (Solu-Medrol -) 40 mg IVPUSH BID [facility] Last Admin: 05/20/18 09:33 Dose: 40 mg Montelukast Sodium (Singulair -) 10 mg PO HS [facility] Last Admin: 05/19/18 22:06 Dose: 10 mg Oxycodone HCl (Roxicodone -) 5 mg PO Q4H PRN PRN Reason: PAIN LEVEL 6-10 Last Admin: 05/20/18 09:31 Dose: 5 mg Pantoprazole Sodium (Protonix -) 40 mg PO DAILY [facility] Last Admin: 05/20/18 09:31 Dose: 40 mg Phenytoin Sodium (Dilantin -) 100 mg PO TID [facility] Last Admin: 05/20/18 06:59 Dose: 100 mg Quetiapine Fumarate (Seroquel -) 200 mg PO [facility] Last Admin: 05/19/18 22:05 Dose: 200 mg Rosuvastatin Calcium (Crestor -) 5 mg PO [facility] Last Admin: 05/19/18 22:05 Dose: 5 mg Tizanidine HCl (Tizanidine Hcl) 2 mg PO Q8H PRN PRN Reason: MUSCLE SPASMS Last Admin: 05/20/18 00:22 Dose: 2 mg - Objective Vital Signs: Vital Signs Temperature 98.0 F 05/20/18 09:00 Pulse Rate 87 05/20/18 09:00 Respiratory Rate 18 05/20/18 09:00 Blood Pressure 112/67 05/20/18 09:00 O2 Sat by Pulse Oximetry (%) 97 05/20/18 09:00 Constitutional: Yes: Well Nourished, No Distress, Calm Cardiovascular: Yes: Regular Rate and Rhythm Respiratory: Yes: Regular Gastrointestinal: Yes: Normal Bowel Sounds, Soft, Abdomen, Obese Musculoskeletal: Yes: WNL Extremities: Yes: WNL Edema: No Peripheral Pulses WNL: Yes Neurological: Yes: Alert, Oriented Psychiatric: Yes: Alert, Oriented Labs: CBC, BMP 05/16/18 06:30 05/16/18 06:30 Problem List - Problems (1) Acute asthma exacerbation Assessment/Plan: -pulmonary consult appreciated -IV abx -IV steroids -Bronchodilators -Cepacol and tussin for cough Code(s): J45.901 - UNSPECIFIED ASTHMA WITH (ACUTE) EXACERBATION Qualifiers: Asthma severity: unspecified severity Asthma persistence: persistent Qualified Code(s): J45.901 - Unspecified asthma with (acute) exacerbation (2) Lung mass Assessment/Plan: -has had lung mass in the past, had CT done at [facility] in Oct 2017 as per patient -Pulmonary consult -repeat CT chest in 3-4 weeks after abx course Code(s): R91.8 - OTHER NONSPECIFIC ABNORMAL FINDING OF LUNG FIELD (3) Shortness of breath Assessment/Plan: -pulmonary consult appreciated -IV abx -IV steroids -Bronchodilators Code(s): R06.02 - SHORTNESS OF BREATH Assessment/Plan see problem list DVT prophylaxis Pt self ambulatory
--- NOTE | 2018-05-20 12:23 | PN ---
Progress Note, Physician History of Present Illness: pulmonary alert,still congested,+cough - Current Medication List Current Medications: Active Medications Acetaminophen (Tylenol -) 650 mg PO Q6H PRN PRN Reason: FEVER Albuterol Sulfate (Ventolin 0.083% Nebulizer Soln -) 1 amp NEB Q4HPO PRN PRN Reason: SHORT OF BREATH/WHEEZING Albuterol/Ipratropium (Duoneb -) 1 amp NEB RQID [facility] Last Admin: 05/20/18 11:30 Dose: 1 amp Amlodipine Besylate (Norvasc -) 5 mg PO DAILY [facility] Last Admin: 05/20/18 09:30 Dose: 5 mg Benzocaine/Menthol (Cepacol Lozenge -) 1 each MM PRN PRN PRN Reason: SORE THROAT Last Admin: 05/16/18 23:12 Dose: 1 each Clonidine (Catapres -) 0.1 mg PO TID [facility] Last Admin: 05/20/18 06:59 Dose: 0.1 mg Docusate Sodium (Colace -) 300 mg PO HS [facility] Last Admin: 05/19/18 22:04 Dose: 300 mg Gabapentin (Neurontin -) 800 mg PO BID [facility] Last Admin: 05/20/18 09:31 Dose: 800 mg Guaifenesin (Diabetic Tussin Dm -) 10 ml PO Q4H PRN PRN Reason: COUGH Last Admin: 05/19/18 20:16 Dose: 10 ml Guaifenesin (Mucinex -) 600 mg PO BID [facility] Last Admin: 05/20/18 09:32 Dose: 600 mg HCTZ/Losartan Potassium (Hyzaar -) 2 tab PO DAILY [facility] Last Admin: 05/20/18 09:31 Dose: 2 tab Heparin Sodium (Porcine) (Heparin -) 5,000 unit SQ BID [facility] Last Admin: 05/20/18 09:29 Dose: 5,000 unit Ceftriaxone Sodium 1 gm/ (Dextrose) 50 mls @ 100 mls/hr IVPB DAILY [facility] Last Admin: 05/20/18 11:30 Dose: 100 mls/hr Magnesium Hydroxide (Milk Of Magnesia -) 30 ml PO Q8H PRN PRN Reason: INDIGESTION Last Admin: 05/17/18 21:44 Dose: 30 ml Methylprednisolone Sodium Succinate (Solu-Medrol -) 40 mg IVPUSH BID [facility] Last Admin: 05/20/18 09:33 Dose: 40 mg Montelukast Sodium (Singulair -) 10 mg PO [facility] Last Admin: 05/19/18 22:06 Dose: 10 mg Oxycodone HCl (Roxicodone -) 5 mg PO Q4H PRN PRN Reason: PAIN LEVEL 6-10 Last Admin: 05/20/18 09:31 Dose: 5 mg Pantoprazole Sodium (Protonix -) 40 mg PO DAILY [facility] Last Admin: 05/20/18 09:31 Dose: 40 mg Phenytoin Sodium (Dilantin -) 100 mg PO TID [facility] Last Admin: 05/20/18 06:59 Dose: 100 mg Quetiapine Fumarate (Seroquel -) 200 mg PO [facility] Last Admin: 05/19/18 22:05 Dose: 200 mg Rosuvastatin Calcium (Crestor -) 5 mg PO [facility] Last Admin: 05/19/18 22:05 Dose: 5 mg Tizanidine HCl (Tizanidine Hcl) 2 mg PO Q8H PRN PRN Reason: MUSCLE SPASMS Last Admin: 05/20/18 00:22 Dose: 2 mg - Objective Vital Signs: Vital Signs Temperature 98.0 F 05/20/18 09:00 Pulse Rate 87 05/20/18 09:00 Respiratory Rate 18 05/20/18 09:00 Blood Pressure 112/67 05/20/18 09:00 O2 Sat by Pulse Oximetry (%) 97 05/20/18 09:00 Constitutional: Yes: Well Nourished, Calm Eyes: Yes: WNL HENT: Yes: WNL Neck: Yes: WNL Cardiovascular: Yes: Regular Rate and Rhythm, S1, S2 Respiratory: Yes: Rhonchi, Wheezes (diffuse john wheezes and rhonchi) Gastrointestinal: Yes: Normal Bowel Sounds, Soft Extremities: Yes: WNL Edema: No Labs: Assessment/Plan A/P Acute Asthma Exacerbation Lung Nodule HTN Hyperlipidemia Chronic Back Pain - medrol q6 - inhaled bronchodilators standing and PRN - antibiotics - will need outpt PET scan (Rx given) - DVT prophylaxis Problem List - Problems (1) Acute asthma exacerbation Code(s): J45.901 - UNSPECIFIED ASTHMA WITH (ACUTE) EXACERBATION Qualifiers: Asthma severity: unspecified severity Asthma persistence: persistent Qualified Code(s): J45.901 - Unspecified asthma with (acute) exacerbation (2) Lung nodule Code(s): R91.1 - SOLITARY PULMONARY NODULE
[2018-05-20] MEDS: guaiFENesin/D-M SUGAR-FREE/ACLHOL-FREE 118 ML BOTTLE PO PRN (14:43)
[2018-05-20] MEDS ORDERED: morphine CARPU-JECT 2 MG/1 ML DISP.SYRIN IM PRN (14:56)
[2018-05-20] MEDS: morphine SULFATE 4 MG/ML VIAL IVPUSH PRN (18:58)
[2018-05-20] MEDS: DOCUSATE SODIUM 100 MG CAPSULE (FP) PO SCH (21:12)
[2018-05-20] MEDS: MONTELUKAST NA 10 MG TABLET PO SCH (21:12)
[2018-05-20] MEDS: ROSUVASTATIN CA 5 MG TABLET (FP) PO SCH (21:13)
[2018-05-20] MEDS: QUEtiapine FUMARATE 200 MG TABLET PO SCH (21:13)
[2018-05-20] MEDS: ZOLPIDEM TARTRATE 5 MG TABLET PO PRN (21:13)
[2018-05-21] MEDS: morphine SULFATE 4 MG/ML VIAL IVPUSH PRN ×3 (03:15→20:32)
[2018-05-21] MEDS: methylPREDNISolone NA SUCC 40 MG/1 ML VIAL IVPUSH SCH ×4 (03:15→21:46)
[2018-05-21] MEDS: cloNIDine HCL 0.1 MG TABLET PO SCH ×3 (05:20→21:45)
[2018-05-21] MEDS: PHENYTOIN NA EXTENDED 100 MG CAPSULE (FP) PO SCH ×3 (05:20→21:46)
[2018-05-21] MEDS ORDERED: PT OWN MED DRAWER 7, Y5N ONE ×5 (08:22→21:17)
[2018-05-21] MEDS: guaiFENesin/D-M SUGAR-FREE/ACLHOL-FREE 118 ML BOTTLE PO PRN (08:23)
[2018-05-21] MEDS: oxyCODONE HCL 5 MG TABLET PO PRN ×2 (08:40→16:35)
[2018-05-21] MEDS: ALBUTEROL SO4 2.5/IPRATROPIUM 0.5 INH SOL 3 ML VIAL.NEB. NEB SCH ×5 (09:23→20:25)
[2018-05-21] MEDS ORDERED: DEXTROSE 5%-WATER - 50 ML IVPB ONE (09:57)
[2018-05-21] MEDS ORDERED: cefTRIAXone SODIUM 1 GM VIAL ONE (09:57)
[2018-05-21] MEDS: BUDESONIDE 0.25 MG/2ML INH SUSP VIAL NEB SCH ×3 (10:00→20:35)
[2018-05-21] MEDS: CEFTRIAXONE 1 GM in DEXTROSE 5%-WATER - 50 ML IVPB SCH (10:02)
[2018-05-21] MEDS: amLODIPine BESYLATE 5 MG TABLET (FP) PO SCH (10:05)
[2018-05-21] MEDS: PANTOPRAZOLE 40 MG TABLET (FP) PO SCH (10:05)
[2018-05-21] MEDS: HEPARIN NA (PORCINE) 5,000 UNITS/ML 1ML VIAL SQ SCH ×2 (10:05→21:46)
[2018-05-21] MEDS: guaiFENesin 600 MG TABLET.ER (FP) PO SCH ×2 (10:06→21:45)
[2018-05-21] MEDS: GABAPENTIN 400 MG CAPSULE (FP) PO SCH ×2 (10:06→21:45)
[2018-05-21] MEDS: LOSARTAN 50MG/HCTZ 12.5MG 1 TAB (FP) PO SCH (10:15)
--- NOTE | 2018-05-21 11:27 | PN ---
Progress Note, Physician History of Present Illness: pulmonary alert,less congested,+cough - Current Medication List Current Medications: Active Medications Acetaminophen (Tylenol -) 650 mg PO Q6H PRN PRN Reason: FEVER Albuterol Sulfate (Ventolin 0.083% Nebulizer Soln -) 1 amp NEB Q4HPO PRN PRN Reason: SHORT OF BREATH/WHEEZING Albuterol/Ipratropium (Duoneb -) 1 amp NEB RQID [facility] Last Admin: 05/21/18 09:23 Dose: 1 amp Amlodipine Besylate (Norvasc -) 5 mg PO DAILY [facility] Last Admin: 05/21/18 10:05 Dose: 5 mg Benzocaine/Menthol (Cepacol Lozenge -) 1 each MM PRN PRN PRN Reason: SORE THROAT Last Admin: 05/16/18 23:12 Dose: 1 each Budesonide (Pulmicort 0.25 Mg Nebulizer -) 1 amp NEB RBID [facility] Clonidine (Catapres -) 0.1 mg PO TID [facility] Last Admin: 05/21/18 05:20 Dose: 0.1 mg Docusate Sodium (Colace -) 300 mg PO HS [facility] Last Admin: 05/20/18 21:12 Dose: 300 mg Gabapentin (Neurontin -) 800 mg PO BID [facility] Last Admin: 05/21/18 10:06 Dose: 800 mg Guaifenesin (Diabetic Tussin Dm -) 10 ml PO Q4H PRN PRN Reason: COUGH Last Admin: 05/21/18 08:23 Dose: 10 ml Guaifenesin (Mucinex -) 600 mg PO BID [facility] Last Admin: 05/21/18 10:06 Dose: 600 mg HCTZ/Losartan Potassium (Hyzaar -) 2 tab PO DAILY [facility] Last Admin: 05/21/18 10:15 Dose: 2 tab Heparin Sodium (Porcine) (Heparin -) 5,000 unit SQ BID [facility] Last Admin: 05/21/18 10:05 Dose: 5,000 unit Ceftriaxone Sodium 1 gm/ (Dextrose) 50 mls @ 100 mls/hr IVPB DAILY [facility] Last Admin: 05/21/18 10:02 Dose: 100 mls/hr Magnesium Hydroxide (Milk Of Magnesia -) 30 ml PO Q8H PRN PRN Reason: INDIGESTION Last Admin: 05/17/18 21:44 Dose: 30 ml Methylprednisolone Sodium Succinate (Solu-Medrol -) 40 mg IVPUSH Q6H-IV [facility] Last Admin: 05/21/18 10:01 Dose: 40 mg Montelukast Sodium (Singulair -) 10 mg PO HS [facility] Last Admin: 05/20/18 21:12 Dose: 10 mg Morphine Sulfate (Morphine Sulfate) 2 mg IVPUSH Q8H PRN PRN Reason: PAIN LEVEL 6-10 Last Admin: 05/21/18 03:15 Dose: 2 mg Oxycodone HCl (Roxicodone -) 5 mg PO Q4H PRN PRN Reason: PAIN LEVEL 6-10 Last Admin: 05/21/18 08:40 Dose: 5 mg Pantoprazole Sodium (Protonix -) 40 mg PO DAILY [facility] Last Admin: 05/21/18 10:05 Dose: 40 mg Phenytoin Sodium (Dilantin -) 100 mg PO TID [facility] Last Admin: 05/21/18 05:20 Dose: 100 mg Quetiapine Fumarate (Seroquel -) 200 mg PO [facility] Last Admin: 05/20/18 21:13 Dose: 200 mg Rosuvastatin Calcium (Crestor -) 5 mg PO [facility] Last Admin: 05/20/18 21:13 Dose: 5 mg Tizanidine HCl (Tizanidine Hcl) 2 mg PO Q8H PRN PRN Reason: MUSCLE SPASMS Last Admin: 05/20/18 21:14 Dose: 2 mg Zolpidem Tartrate (Ambien -) 5 mg PO HS PRN PRN Reason: INSOMNIA Last Admin: 05/20/18 21:13 Dose: 5 mg - Objective Vital Signs: Vital Signs Temperature 98.1 F 05/21/18 08:00 Pulse Rate 76 05/21/18 08:00 Respiratory Rate 22 05/21/18 08:00 Blood Pressure 143/78 05/21/18 08:00 O2 Sat by Pulse Oximetry (%) 96 05/21/18 08:00 Constitutional: Yes: Well Nourished, Calm Eyes: Yes: WNL HENT: Yes: WNL Neck: Yes: WNL Cardiovascular: Yes: Regular Rate and Rhythm, S1, S2 Respiratory: Yes: Rhonchi (scattered john rhonchi) Gastrointestinal: Yes: Normal Bowel Sounds, Soft Extremities: Yes: WNL Edema: No Labs: CBC, BMP Assessment/Plan A/P Acute Asthma Exacerbation Lung Nodule HTN Hyperlipidemia Chronic Back Pain - medrol q6 - inhaled bronchodilators standing and PRN - antibiotics - will need outpt PET scan (Rx given) - DVT prophylaxis Problem List - Problems (1) Acute asthma exacerbation Code(s): J45.901 - UNSPECIFIED ASTHMA WITH (ACUTE) EXACERBATION Qualifiers: Asthma severity: unspecified severity Asthma persistence: persistent Qualified Code(s): J45.901 - Unspecified asthma with (acute) exacerbation (2) Lung nodule Code(s): R91.1 - SOLITARY PULMONARY NODULE
[2018-05-21] MEDS: TIZANIDINE HCL 2 MG TABLET PO PRN (17:54)
[2018-05-21] MEDS ORDERED: BUDESONIDE 0.5 MG/2 ML INH SUSP VIAL NEB ONE (20:16)
[2018-05-21] MEDS: MONTELUKAST NA 10 MG TABLET PO SCH (21:44)
[2018-05-21] MEDS: ROSUVASTATIN CA 5 MG TABLET (FP) PO SCH (21:45)
[2018-05-21] MEDS: DOCUSATE SODIUM 100 MG CAPSULE (FP) PO SCH (21:45)
[2018-05-21] MEDS: QUEtiapine FUMARATE 200 MG TABLET PO SCH (21:45)
[2018-05-21] MEDS: ZOLPIDEM TARTRATE 5 MG TABLET PO PRN (21:45)
[2018-05-22] MEDS: methylPREDNISolone NA SUCC 40 MG/1 ML VIAL IVPUSH SCH ×4 (02:11→21:42)
[2018-05-22] MEDS: PHENYTOIN NA EXTENDED 100 MG CAPSULE (FP) PO SCH ×3 (05:27→22:52)
[2018-05-22] MEDS: cloNIDine HCL 0.1 MG TABLET PO SCH ×3 (05:27→21:44)
[2018-05-22] MEDS: morphine SULFATE 4 MG/ML VIAL IVPUSH PRN ×2 (05:52→17:06)
[2018-05-22] MEDS ORDERED: PT OWN MED DRAWER 7, Y5N ONE ×3 (06:32→21:35)
[2018-05-22] MEDS: BUDESONIDE 0.25 MG/2ML INH SUSP VIAL NEB SCH ×2 (08:01→21:25)
[2018-05-22] MEDS: ALBUTEROL SO4 2.5/IPRATROPIUM 0.5 INH SOL 3 ML VIAL.NEB. NEB SCH ×4 (08:16→21:25)
--- NOTE | 2018-05-22 09:44 | PN ---
Progress Note, Physician Chief Complaint: Asthma Exacerbation History of Present Illness: NAD mildly improved still complaining of cough and mid-sternal musculoskelatal chest pain 2/2 to cough Already on muscle relaxers and oxycodone - Current Medication List Current Medications: Active Medications Acetaminophen (Tylenol -) 650 mg PO Q6H PRN PRN Reason: FEVER Albuterol Sulfate (Ventolin 0.083% Nebulizer Soln -) 1 amp NEB Q4HPO PRN PRN Reason: SHORT OF BREATH/WHEEZING Albuterol/Ipratropium (Duoneb -) 1 amp NEB RQID [facility] Last Admin: 05/22/18 08:16 Dose: 1 amp Amlodipine Besylate (Norvasc -) 5 mg PO DAILY [facility] Last Admin: 05/21/18 10:05 Dose: 5 mg Benzocaine/Menthol (Cepacol Lozenge -) 1 each MM PRN PRN PRN Reason: SORE THROAT Last Admin: 05/16/18 23:12 Dose: 1 each Budesonide (Pulmicort 0.25 Mg Nebulizer -) 1 amp NEB RBID [facility] Last Admin: 05/22/18 08:01 Dose: 1 amp Clonidine (Catapres -) 0.1 mg PO TID [facility] Last Admin: 05/22/18 05:27 Dose: 0.1 mg Docusate Sodium (Colace -) 300 mg PO HS [facility] Last Admin: 05/21/18 21:45 Dose: 300 mg Gabapentin (Neurontin -) 800 mg PO BID [facility] Last Admin: 05/21/18 21:45 Dose: 800 mg Guaifenesin (Diabetic Tussin Dm -) 10 ml PO Q4H PRN PRN Reason: COUGH Last Admin: 05/21/18 08:23 Dose: 10 ml Guaifenesin (Mucinex -) 600 mg PO BID [facility] Last Admin: 05/21/18 21:45 Dose: 600 mg HCTZ/Losartan Potassium (Hyzaar -) 2 tab PO DAILY [facility] Last Admin: 05/21/18 10:15 Dose: 2 tab Heparin Sodium (Porcine) (Heparin -) 5,000 unit SQ BID [facility] Last Admin: 05/21/18 21:46 Dose: 5,000 unit Ceftriaxone Sodium 1 gm/ (Dextrose) 50 mls @ 100 mls/hr IVPB DAILY [facility] Last Admin: 05/21/18 10:02 Dose: 100 mls/hr Magnesium Hydroxide (Milk Of Magnesia -) 30 ml PO Q8H PRN PRN Reason: INDIGESTION Last Admin: 05/17/18 21:44 Dose: 30 ml Methylprednisolone Sodium Succinate (Solu-Medrol -) 40 mg IVPUSH Q6H-IV [facility] Last Admin: 05/22/18 02:11 Dose: 40 mg Montelukast Sodium (Singulair -) 10 mg PO HS [facility] Last Admin: 05/21/18 21:44 Dose: 10 mg Morphine Sulfate (Morphine Sulfate) 2 mg IVPUSH Q8H PRN PRN Reason: PAIN LEVEL 6-10 Last Admin: 05/22/18 05:52 Dose: 2 mg Oxycodone HCl (Roxicodone -) 5 mg PO Q4H PRN PRN Reason: PAIN LEVEL 6-10 Last Admin: 05/21/18 16:35 Dose: 5 mg Pantoprazole Sodium (Protonix -) 40 mg PO DAILY [facility] Last Admin: 05/21/18 10:05 Dose: 40 mg Phenytoin Sodium (Dilantin -) 100 mg PO TID [facility] Last Admin: 05/22/18 05:27 Dose: 100 mg Quetiapine Fumarate (Seroquel -) 200 mg PO [facility] Last Admin: 05/21/18 21:45 Dose: 200 mg Rosuvastatin Calcium (Crestor -) 5 mg PO [facility] Last Admin: 05/21/18 21:45 Dose: 5 mg Tizanidine HCl (Tizanidine Hcl) 2 mg PO Q8H PRN PRN Reason: MUSCLE SPASMS Last Admin: 05/21/18 17:54 Dose: 2 mg Zolpidem Tartrate (Ambien -) 5 mg PO HS PRN PRN Reason: INSOMNIA Last Admin: 05/21/18 21:45 Dose: 5 mg - Objective Vital Signs: Vital Signs Temperature 97.8 F 05/22/18 06:00 Pulse Rate 68 05/22/18 06:00 Respiratory Rate 18 05/22/18 06:00 Blood Pressure 130/79 05/22/18 06:00 O2 Sat by Pulse Oximetry (%) 97 05/22/18 00:00 Constitutional: Yes: Well Nourished, No Distress Cardiovascular: Yes: Regular Rate and Rhythm Respiratory: Yes: Regular Gastrointestinal: Yes: Normal Bowel Sounds, Soft Musculoskeletal: Yes: WNL Extremities: Yes: WNL Edema: No Peripheral Pulses WNL: Yes Neurological: Yes: Alert, Oriented Psychiatric: Yes: Alert, Oriented Labs: CBC, BMP 05/16/18 06:30 05/16/18 06:30 Problem List - Problems (1) Acute asthma exacerbation Assessment/Plan: -pulmonary consult appreciated -IV abx -IV steroids -Bronchodilators -Cepacol and tussin for cough Code(s): J45.901 - UNSPECIFIED ASTHMA WITH (ACUTE) EXACERBATION Qualifiers: Asthma severity: unspecified severity Asthma persistence: persistent Qualified Code(s): J45.901 - Unspecified asthma with (acute) exacerbation (2) Lung mass Assessment/Plan: -has had lung mass in the past, had CT done at [facility] in Oct 2017 as per patient -Pulmonary consult -repeat CT chest in 3-4 weeks after abx course Code(s): R91.8 - OTHER NONSPECIFIC ABNORMAL FINDING OF LUNG FIELD (3) Shortness of breath Assessment/Plan: -pulmonary consult appreciated -IV abx -IV steroids -Bronchodilators Code(s): R06.02 - SHORTNESS OF BREATH Assessment/Plan see problem list DVT prophylaxis Pt self ambulatory
[2018-05-22] MEDS ORDERED: cefTRIAXone SODIUM 1 GM VIAL ONE (10:37)
[2018-05-22] MEDS ORDERED: DEXTROSE 5%-WATER - 50 ML IVPB ONE (10:37)
[2018-05-22] MEDS: guaiFENesin 600 MG TABLET.ER (FP) PO SCH ×2 (10:42→21:45)
[2018-05-22] MEDS: amLODIPine BESYLATE 5 MG TABLET (FP) PO SCH (10:42)
[2018-05-22] MEDS: GABAPENTIN 400 MG CAPSULE (FP) PO SCH ×2 (10:42→21:45)
[2018-05-22] MEDS: CEFTRIAXONE 1 GM in DEXTROSE 5%-WATER - 50 ML IVPB SCH (10:43)
[2018-05-22] MEDS: PANTOPRAZOLE 40 MG TABLET (FP) PO SCH (10:43)
[2018-05-22] MEDS: LOSARTAN 50MG/HCTZ 12.5MG 1 TAB (FP) PO SCH (10:44)
--- NOTE | 2018-05-22 12:07 | PN ---
Progress Note, Physician History of Present Illness: PULMONARY ALERT,FEELING BETTER,LESS CONGESTED,LESS COUGH - Current Medication List Current Medications: Active Medications Acetaminophen (Tylenol -) 650 mg PO Q6H PRN PRN Reason: FEVER Albuterol Sulfate (Ventolin 0.083% Nebulizer Soln -) 1 amp NEB Q4HPO PRN PRN Reason: SHORT OF BREATH/WHEEZING Albuterol/Ipratropium (Duoneb -) 1 amp NEB RQID [facility] Last Admin: 05/22/18 11:26 Dose: 1 amp Amlodipine Besylate (Norvasc -) 5 mg PO DAILY [facility] Last Admin: 05/22/18 10:42 Dose: 5 mg Benzocaine/Menthol (Cepacol Lozenge -) 1 each MM PRN PRN PRN Reason: SORE THROAT Last Admin: 05/16/18 23:12 Dose: 1 each Budesonide (Pulmicort 0.25 Mg Nebulizer -) 1 amp NEB RBID [facility] Last Admin: 05/22/18 08:01 Dose: 1 amp Clonidine (Catapres -) 0.1 mg PO TID [facility] Last Admin: 05/22/18 05:27 Dose: 0.1 mg Docusate Sodium (Colace -) 300 mg PO HS [facility] Last Admin: 05/21/18 21:45 Dose: 300 mg Gabapentin (Neurontin -) 800 mg PO BID [facility] Last Admin: 05/22/18 10:42 Dose: 800 mg Guaifenesin (Diabetic Tussin Dm -) 10 ml PO Q4H PRN PRN Reason: COUGH Last Admin: 05/21/18 08:23 Dose: 10 ml Guaifenesin (Mucinex -) 600 mg PO BID [facility] Last Admin: 05/22/18 10:42 Dose: 600 mg HCTZ/Losartan Potassium (Hyzaar -) 2 tab PO DAILY [facility] Last Admin: 05/22/18 10:44 Dose: 2 tab Heparin Sodium (Porcine) (Heparin -) 5,000 unit SQ BID [facility] Last Admin: 05/21/18 21:46 Dose: 5,000 unit Ceftriaxone Sodium 1 gm/ (Dextrose) 50 mls @ 100 mls/hr IVPB DAILY [facility] Last Admin: 05/22/18 10:43 Dose: 100 mls/hr Magnesium Hydroxide (Milk Of Magnesia -) 30 ml PO Q8H PRN PRN Reason: INDIGESTION Last Admin: 05/17/18 21:44 Dose: 30 ml Methylprednisolone Sodium Succinate (Solu-Medrol -) 40 mg IVPUSH Q6H-IV [facility] Last Admin: 05/22/18 10:42 Dose: 40 mg Montelukast Sodium (Singulair -) 10 mg PO HS [facility] Last Admin: 05/21/18 21:44 Dose: 10 mg Morphine Sulfate (Morphine Sulfate) 2 mg IVPUSH Q8H PRN PRN Reason: PAIN LEVEL 6-10 Last Admin: 05/22/18 05:52 Dose: 2 mg Oxycodone HCl (Roxicodone -) 5 mg PO Q4H PRN PRN Reason: PAIN LEVEL 6-10 Last Admin: 05/21/18 16:35 Dose: 5 mg Pantoprazole Sodium (Protonix -) 40 mg PO DAILY [facility] Last Admin: 05/22/18 10:43 Dose: 40 mg Phenytoin Sodium (Dilantin -) 100 mg PO TID [facility] Last Admin: 05/22/18 05:27 Dose: 100 mg Quetiapine Fumarate (Seroquel -) 200 mg PO HS [facility] Last Admin: 05/21/18 21:45 Dose: 200 mg Rosuvastatin Calcium (Crestor -) 5 mg PO [facility] Last Admin: 05/21/18 21:45 Dose: 5 mg Tizanidine HCl (Tizanidine Hcl) 2 mg PO Q8H PRN PRN Reason: MUSCLE SPASMS Last Admin: 05/21/18 17:54 Dose: 2 mg Zolpidem Tartrate (Ambien -) 5 mg PO HS PRN PRN Reason: INSOMNIA Last Admin: 05/21/18 21:45 Dose: 5 mg - Objective Vital Signs: Vital Signs Temperature 97.8 F 05/22/18 06:00 Pulse Rate 68 05/22/18 06:00 Respiratory Rate 18 05/22/18 06:00 Blood Pressure 130/79 05/22/18 06:00 O2 Sat by Pulse Oximetry (%) 97 05/22/18 00:00 Constitutional: Yes: Well Nourished, Calm Eyes: Yes: WNL HENT: Yes: WNL Neck: Yes: WNL Cardiovascular: Yes: Regular Rate and Rhythm, S1, S2 Respiratory: Yes: Rhonchi (LESS RHONCHI) Gastrointestinal: Yes: Normal Bowel Sounds, Soft Extremities: Yes: WNL Edema: No Labs: CBC, BMP Assessment/Plan A/P Acute Asthma Exacerbation Lung Nodule HTN Hyperlipidemia Chronic Back Pain - medrol q6, start prednisone in am if continues to improve - inhaled bronchodilators standing and PRN - antibiotics - will need outpt PET scan (Rx given) - DVT prophylaxis Problem List - Problems (1) Acute asthma exacerbation Code(s): J45.901 - UNSPECIFIED ASTHMA WITH (ACUTE) EXACERBATION Qualifiers: Asthma severity: unspecified severity Asthma persistence: persistent Qualified Code(s): J45.901 - Unspecified asthma with (acute) exacerbation (2) Lung nodule Code(s): R91.1 - SOLITARY PULMONARY NODULE
[2018-05-22] MEDS: HEPARIN NA (PORCINE) 5,000 UNITS/ML 1ML VIAL SQ SCH ×2 (13:39→21:42)
[2018-05-22] MEDS: ZOLPIDEM TARTRATE 5 MG TABLET PO PRN (21:44)
[2018-05-22] MEDS: DOCUSATE SODIUM 100 MG CAPSULE (FP) PO SCH (21:44)
[2018-05-22] MEDS: MONTELUKAST NA 10 MG TABLET PO SCH (21:44)
[2018-05-22] MEDS: BENZOCAINE/MENTH/CETYLPYRD CL 1 EACH LOZENGE MM PRN (21:45)
[2018-05-22] MEDS: QUEtiapine FUMARATE 200 MG TABLET PO SCH (21:45)
[2018-05-22] MEDS: oxyCODONE HCL 5 MG TABLET PO PRN (22:50)
[2018-05-22] MEDS: ROSUVASTATIN CA 5 MG TABLET (FP) PO SCH (22:52)
[2018-05-23] MEDS: methylPREDNISolone NA SUCC 40 MG/1 ML VIAL IVPUSH SCH ×2 (02:19→12:25)
[2018-05-23] MEDS: morphine SULFATE 4 MG/ML VIAL IVPUSH PRN (02:19)
[2018-05-23] MEDS ORDERED: PT OWN MED DRAWER 7, Y5N ONE ×2 (05:20→11:18)
[2018-05-23] MEDS: PHENYTOIN NA EXTENDED 100 MG CAPSULE (FP) PO SCH ×2 (06:24→15:42)
[2018-05-23] MEDS: cloNIDine HCL 0.1 MG TABLET PO SCH ×2 (06:24→15:42)
[2018-05-23 07:23] VITALS: TEMP 97.8
[2018-05-23] MEDS: oxyCODONE HCL 5 MG TABLET PO PRN ×2 (07:49→12:16)
[2018-05-23] MEDS: ALBUTEROL SO4 2.5/IPRATROPIUM 0.5 INH SOL 3 ML VIAL.NEB. NEB SCH ×2 (08:55→12:42)
--- NOTE | 2018-05-23 08:56 | PN ---
Progress Note, Physician Chief Complaint: Asthma Exacerbation History of Present Illness: NAD much improved still complaining of cough and mid-sternal musculoskelatal chest pain 2/2 to cough Already on muscle relaxers and oxycodone - Current Medication List Current Medications: Active Medications Acetaminophen (Tylenol -) 650 mg PO Q6H PRN PRN Reason: FEVER Albuterol Sulfate (Ventolin 0.083% Nebulizer Soln -) 1 amp NEB Q4HPO PRN PRN Reason: SHORT OF BREATH/WHEEZING Albuterol/Ipratropium (Duoneb -) 1 amp NEB RQID [facility] Last Admin: 05/23/18 08:55 Dose: 1 amp Amlodipine Besylate (Norvasc -) 5 mg PO DAILY [facility] Last Admin: 05/22/18 10:42 Dose: 5 mg Benzocaine/Menthol (Cepacol Lozenge -) 1 each MM PRN PRN PRN Reason: SORE THROAT Last Admin: 05/22/18 21:45 Dose: 1 each Budesonide (Pulmicort 0.25 Mg Nebulizer -) 1 amp NEB RBID [facility] Last Admin: 05/22/18 21:25 Dose: 1 amp Clonidine (Catapres -) 0.1 mg PO TID [facility] Last Admin: 05/23/18 06:24 Dose: 0.1 mg Docusate Sodium (Colace -) 300 mg PO HS [facility] Last Admin: 05/22/18 21:44 Dose: 300 mg Gabapentin (Neurontin -) 800 mg PO BID [facility] Last Admin: 05/22/18 21:45 Dose: 800 mg Guaifenesin (Diabetic Tussin Dm -) 10 ml PO Q4H PRN PRN Reason: COUGH Last Admin: 05/21/18 08:23 Dose: 10 ml Guaifenesin (Mucinex -) 600 mg PO BID [facility] Last Admin: 05/22/18 21:45 Dose: 600 mg HCTZ/Losartan Potassium (Hyzaar -) 2 tab PO DAILY [facility] Last Admin: 05/22/18 10:44 Dose: 2 tab Heparin Sodium (Porcine) (Heparin -) 5,000 unit SQ BID [facility] Last Admin: 05/22/18 21:42 Dose: 5,000 unit Ceftriaxone Sodium 1 gm/ (Dextrose) 50 mls @ 100 mls/hr IVPB DAILY [facility] Last Admin: 05/22/18 10:43 Dose: 100 mls/hr Magnesium Hydroxide (Milk Of Magnesia -) 30 ml PO Q8H PRN PRN Reason: INDIGESTION Last Admin: 05/17/18 21:44 Dose: 30 ml Methylprednisolone Sodium Succinate (Solu-Medrol -) 40 mg IVPUSH Q6H-IV [facility] Last Admin: 05/23/18 02:19 Dose: 40 mg Montelukast Sodium (Singulair -) 10 mg PO HS [facility] Last Admin: 05/22/18 21:44 Dose: 10 mg Morphine Sulfate (Morphine Sulfate) 2 mg IVPUSH Q8H PRN PRN Reason: PAIN LEVEL 6-10 Last Admin: 05/23/18 02:19 Dose: 2 mg Oxycodone HCl (Roxicodone -) 5 mg PO Q4H PRN PRN Reason: PAIN LEVEL 6-10 Last Admin: 05/23/18 07:49 Dose: 5 mg Pantoprazole Sodium (Protonix -) 40 mg PO DAILY [facility] Last Admin: 05/22/18 10:43 Dose: 40 mg Phenytoin Sodium (Dilantin -) 100 mg PO TID [facility] Last Admin: 05/23/18 06:24 Dose: 100 mg Quetiapine Fumarate (Seroquel -) 200 mg PO [facility] Last Admin: 05/22/18 21:45 Dose: 200 mg Rosuvastatin Calcium (Crestor -) 5 mg PO [facility] Last Admin: 05/22/18 22:52 Dose: 5 mg Tizanidine HCl (Tizanidine Hcl) 2 mg PO Q8H PRN PRN Reason: MUSCLE SPASMS Last Admin: 05/21/18 17:54 Dose: 2 mg Zolpidem Tartrate (Ambien -) 5 mg PO HS PRN PRN Reason: INSOMNIA Last Admin: 05/22/18 21:44 Dose: 5 mg - Objective Vital Signs: Vital Signs Temperature 97.8 F 05/23/18 06:00 Pulse Rate 74 05/23/18 06:00 Respiratory Rate 20 05/23/18 06:00 Blood Pressure 138/78 05/23/18 06:00 O2 Sat by Pulse Oximetry (%) 96 05/22/18 21:00 Constitutional: Yes: Well Nourished, No Distress, Calm Cardiovascular: Yes: Regular Rate and Rhythm Respiratory: Yes: Regular Gastrointestinal: Yes: Normal Bowel Sounds, Soft Musculoskeletal: Yes: WNL Extremities: Yes: WNL Edema: No Peripheral Pulses WNL: Yes Neurological: Yes: Alert, Oriented Psychiatric: Yes: Alert, Oriented Labs: CBC, BMP 05/16/18 06:30 05/16/18 06:30 Problem List - Problems (1) Acute asthma exacerbation Assessment/Plan: -pulmonary consult appreciated -IV abx completed 7 days -d/c home on prednisone tapering dose -Bronchodilators -Cepacol and tussin for cough Code(s): J45.901 - UNSPECIFIED ASTHMA WITH (ACUTE) EXACERBATION Qualifiers: Asthma severity: unspecified severity Asthma persistence: persistent Qualified Code(s): J45.901 - Unspecified asthma with (acute) exacerbation (2) Lung mass Assessment/Plan: -has had lung mass in the past, had CT done at [facility] in Oct 2017 as per patient -Pulmonary consult -PET and PFT outpatient Code(s): R91.8 - OTHER NONSPECIFIC ABNORMAL FINDING OF LUNG FIELD (3) Shortness of breath Assessment/Plan: -pulmonary consult appreciated -IV abx completed 7 days -d/c on PO steroids -Bronchodilators Code(s): R06.02 - SHORTNESS OF BREATH Assessment/Plan see problem list
[2018-05-23] MEDS: HEPARIN NA (PORCINE) 5,000 UNITS/ML 1ML VIAL SQ SCH (11:11)
[2018-05-23] MEDS: GABAPENTIN 400 MG CAPSULE (FP) PO SCH (11:12)
[2018-05-23] MEDS: amLODIPine BESYLATE 5 MG TABLET (FP) PO SCH (11:12)
[2018-05-23] MEDS: guaiFENesin 600 MG TABLET.ER (FP) PO SCH (11:13)
[2018-05-23] MEDS: PANTOPRAZOLE 40 MG TABLET (FP) PO SCH (11:13)
[2018-05-23] MEDS: LOSARTAN 50MG/HCTZ 12.5MG 1 TAB (FP) PO SCH (11:19)
[2018-05-23 11:29] VITALS: BP 141/96; PULSE 75
[2018-05-23] MEDS ORDERED: predniSONE 20 MG TABLET (UD) PO SCH (11:45)
[2018-05-23] MEDS: CEFTRIAXONE 1 GM in DEXTROSE 5%-WATER - 50 ML IVPB SCH (12:26)
--- NOTE | 2018-05-23 13:17 | PN ---
Progress Note, Physician History of Present Illness: pulmonary alert,feeling better,-sob,cough improved - Current Medication List Current Medications: Active Medications Acetaminophen (Tylenol -) 650 mg PO Q6H PRN PRN Reason: FEVER Albuterol Sulfate (Ventolin 0.083% Nebulizer Soln -) 1 amp NEB Q4HPO PRN PRN Reason: SHORT OF BREATH/WHEEZING Albuterol/Ipratropium (Duoneb -) 1 amp NEB RQID [facility] Last Admin: 05/23/18 12:42 Dose: 1 amp Amlodipine Besylate (Norvasc -) 5 mg PO DAILY [facility] Last Admin: 05/23/18 11:12 Dose: 5 mg Benzocaine/Menthol (Cepacol Lozenge -) 1 each MM PRN PRN PRN Reason: SORE THROAT Last Admin: 05/22/18 21:45 Dose: 1 each Budesonide (Pulmicort 0.25 Mg Nebulizer -) 1 amp NEB RBID [facility] Last Admin: 05/22/18 21:25 Dose: 1 amp Clonidine (Catapres -) 0.1 mg PO TID [facility] Last Admin: 05/23/18 06:24 Dose: 0.1 mg Docusate Sodium (Colace -) 300 mg PO [facility] Last Admin: 05/22/18 21:44 Dose: 300 mg Gabapentin (Neurontin -) 800 mg PO BID [facility] Last Admin: 05/23/18 11:12 Dose: 800 mg Guaifenesin (Diabetic Tussin Dm -) 10 ml PO Q4H PRN PRN Reason: COUGH Last Admin: 05/21/18 08:23 Dose: 10 ml Guaifenesin (Mucinex -) 600 mg PO BID [facility] Last Admin: 05/23/18 11:13 Dose: 600 mg HCTZ/Losartan Potassium (Hyzaar -) 2 tab PO DAILY [facility] Last Admin: 05/23/18 11:19 Dose: 2 tab Heparin Sodium (Porcine) (Heparin -) 5,000 unit SQ BID [facility] Last Admin: 05/23/18 11:11 Dose: Not Given Magnesium Hydroxide (Milk Of Magnesia -) 30 ml PO Q8H PRN PRN Reason: INDIGESTION Last Admin: 05/17/18 21:44 Dose: 30 ml Montelukast Sodium (Singulair -) 10 mg PO [facility] Last Admin: 05/22/18 21:44 Dose: 10 mg Oxycodone HCl (Roxicodone -) 5 mg PO Q4H PRN PRN Reason: PAIN LEVEL 6-10 Last Admin: 05/23/18 12:16 Dose: 5 mg Pantoprazole Sodium (Protonix -) 40 mg PO DAILY [facility] Last Admin: 05/23/18 11:13 Dose: 40 mg Phenytoin Sodium (Dilantin -) 100 mg PO TID [facility] Last Admin: 05/23/18 06:24 Dose: 100 mg Prednisone (Deltasone -) 40 mg PO BID [facility] Last Admin: 05/23/18 12:18 Dose: 40 mg Quetiapine Fumarate (Seroquel -) 200 mg PO [facility] Last Admin: 05/22/18 21:45 Dose: 200 mg Rosuvastatin Calcium (Crestor -) 5 mg PO [facility] Last Admin: 05/22/18 22:52 Dose: 5 mg Tizanidine HCl (Tizanidine Hcl) 2 mg PO Q8H PRN PRN Reason: MUSCLE SPASMS Last Admin: 05/21/18 17:54 Dose: 2 mg Zolpidem Tartrate (Ambien -) 5 mg PO HS PRN PRN Reason: INSOMNIA Last Admin: 05/22/18 21:44 Dose: 5 mg - Objective Vital Signs: Vital Signs Temperature 97.8 F 05/23/18 06:00 Pulse Rate 75 05/23/18 10:00 Respiratory Rate 20 05/23/18 10:00 Blood Pressure 141/96 05/23/18 10:00 O2 Sat by Pulse Oximetry (%) 96 05/22/18 21:00 Constitutional: Yes: Well Nourished, Calm Eyes: Yes: WNL HENT: Yes: WNL Neck: Yes: WNL Cardiovascular: Yes: Regular Rate and Rhythm, S1, S2 Respiratory: Yes: CTA Bilaterally Gastrointestinal: Yes: Normal Bowel Sounds, Soft Extremities: Yes: WNL Edema: No Labs: CBC, BMP Assessment/Plan A/P Acute Asthma Exacerbation improved Lung Nodule HTN Hyperlipidemia Chronic Back Pain - prednisone 60mg po daily with taper over two weeks - inhaled bronchodilators standing and PRN - will need outpt PET scan (Rx given) - DVT prophylaxis - pfts outpatient Problem List - Problems (1) Acute asthma exacerbation Code(s): J45.901 - UNSPECIFIED ASTHMA WITH (ACUTE) EXACERBATION Qualifiers: Asthma severity: unspecified severity Asthma persistence: persistent Qualified Code(s): J45.901 - Unspecified asthma with (acute) exacerbation (2) Lung nodule Code(s): R91.1 - SOLITARY PULMONARY NODULE
[2018-05-23] MEDS: BUDESONIDE 0.25 MG/2ML INH SUSP VIAL NEB SCH (15:41)
== END 2018-05-23 15:00 | disposition home or self-care (01) | DRG 203 ==
LOC: JER 06:48 → JERBED 13:09 → J5S 19:03
PROVIDERS: ADMIT Family Medicine; ATTEND Family Medicine
DX: J45.901 Unspecified asthma with (acute) exacerbation (principal); R91.1 Solitary pulmonary nodule; G40.909 Epilepsy, unspecified, not intractable, without status epilepticus; E66.9 Obesity, unspecified; Z68.31 Body mass index [BMI] 31.0-31.9, adult; E11.9 Type 2 diabetes mellitus without complications; I10 Essential (primary) hypertension; E78.5 Hyperlipidemia, unspecified; I48.91 Unspecified atrial fibrillation; G62.9 Polyneuropathy, unspecified; I25.10 Atherosclerotic heart disease of native coronary artery without angina pectoris; Z96.653 Presence of artificial knee joint, bilateral; Z87.891 Personal history of nicotine dependence; G43.909 Migraine, unspecified, not intractable, without status migrainosus; K59.00 Constipation, unspecified; F12.10 Cannabis abuse, uncomplicated; M54.5 Low back pain; R07.89 Other chest pain
CPT/HCPCS: 36415; 71046-TC-FY; 71250-TC; 80053; 80061; 80185; 81003; 82550; 83036; 83690; 83721; 84443; 84484; 85025; 85027; 87040; 93005; 93010; 93306-TC; 94010; 94150; 94640; 99283-25; J0735; J1644; J7620

== ENCOUNTER 2018-10-14 08:46 | Emergency (ER) | payer OTHER ==
--- NOTE | 2018-10-14 08:51 | PDOC ---
History of Present Illness - General Chief Complaint: Chest Pain Stated Complaint: CHEST PAIN Time Seen by Provider: 10/14/18 08:50 History Source: Patient Exam Limitations: No Limitations Past History - Past Medical History Allergies/Adverse Reactions: Allergies Allergy/AdvReac Type Severity Reaction Status Date / Time No Known Allergies Allergy Verified 10/14/18 09:04 Home Medications: Ambulatory Orders Gabapentin [Neurontin] 800 mg PO TID 04/11/15 Losartan/Hydrochlorothiazide [Losartan-Hctz 100-25 mg Tablet] 1 each PO DAILY Amlodipine Besylate [Norvasc -] 10 mg PO DAILY #30 tablet 03/27/17 Phenytoin Na Extended [Dilantin -] 100 mg PO TID #0 cap 09/14/17 Zolpidem Tartrate [Ambien] 10 mg PO HS PRN tablet MDD 1 09/14/17 Quetiapine Fumarate [Seroquel] 200 tab PO HS 12/31/17 cloNIDine HCL [Catapres -] 0.1 mg PO TID 12/31/17 Docusate Sodium [Colace -] 100 mg PO BID PRN capsule 01/31/18 Oxycodone HCl/Acetaminophen [Percocet 5-325 mg Tablet] 1 combo PO Q6H PRN #20 tablet MDD 4 05/23/18 Carisoprodol [Soma (Nf)] 350 mg PO TID 10/14/18 Anemia: No Asthma: Yes Cancer: No Cardiac Disorders: Yes (afib) CVA: No COPD: No CHF: No Diabetes: Yes GI Disorders: Yes (COLITIS) Disorders: No HTN: Yes Hypercholesterolemia: Yes Liver Disease: No Seizures: Yes (Epilepsy) Thyroid Disease: No - Surgical History Abdominal Surgery: No Appendectomy: Yes Cardiac Surgery: No Cholecystectomy: No Lung Surgery: No Neurologic Surgery: No Orthopedic Surgery: Yes (both knee replacement) - Immunization History Immunization Up to Date: Yes - Suicide/Smoking/Psychosocial Hx Smoking Status: No Smoking History: Former smoker Years of Tobacco Use: 10 Have you smoked in the past 12 months: No Number of Cigarettes Smoked Daily: 0 If you are a former smoker, when did you quit?: 2002 - smoked 1ppwk for about 10 yrs Hx Alcohol Use: No Drug/Substance Use Hx: No Substance Use Type: None Hx Substance Use Treatment: No ED Treatment Course - LABORATORY CBC & Chemistry Diagram: 10/14/18 10:59 10/14/18 10:59 Medical Decision Making - Medical Decision Making Pt was seen at bedside, also will be seen by attending Dr. Rivera. Pt presenting with complaints of L-sided chest pain since 5 am this morning, which lasted for about 5 minutes at a time. Ambulance provided 2 sublingual NG and 325 mg PO aspirin; pt states the pain is improved at this time. PE showed wheezing b/l posterior lung lam. Ecchymosis, tightness, and tenderness of L calf. Considering ACS vs atypical chest pain vs angina vs costochondritis. Low suspicion of PE at this point, as pt has no recent travel/estrogen use, dyspnea , no history of DVT. Will get US of LLE to r/o DVT Ordered work-up including CBC, CMP, UA, urine culture, troponin, chest x-ray, LLE doppler. Provided 650 mg PO tylenol and albuterol nebulizer treatment for improvement of chest pain and wheezing. Will continue to reassess pt and monitor for symptomatic improvement. 10/14/18 09:26 ECG showed NSR, no active a-fib at this time 10/14/18 09:31 Pt was difficult stick, labs sent. Pt will be taken for chest x-ray and US. 10/14/18 11:03 All labs generally WNL, first troponin <.02 Pt in US for lower extremity doppler r/o DVT. Will consider D-dimer if DVT present. 10/14/18 12:02 LLE doppler showed no DVT. Pt waiting for chest x-ray and second troponin test (to be drawn about 2 pm). 10/14/18 12:30 Chest x-ray showed no acute pathology. Will draw 2nd troponin test. 10/14/18 13:44 Second troponin and UA/urine culture sent to lab. 10/14/18 14:19 Second troponin and UA negative. Considering normal lab results and imaging pt can be discharged to home with follow-up. Pt advised to follow-up with PCP in 1- 2 days. Strict return precautions provided with pt understanding. 10/14/18 15:51 *DC/Admit/Observation/Transfer Diagnosis at time of Disposition: Atypical chest pain - Discharge Dispostion Disposition: HOME Condition at time of disposition: Improved Decision to Admit order: No - Referrals Referrals: Yariel Springer [Primary Care Provider] - - Patient Instructions Printed Discharge Instructions: DI for Atypical Chest Pain Additional Instructions: You were seen in the ER today for chest pain. The results of your labs and imaging today were normal. Please follow-up with your primary care doctor within 1-2 days to discuss your visit and make sure your symptoms have improved. Please return to the ER if you have any worsening chest pain, development of fevers or chills, loss of consciousness, inability to tolerate food or fluids, or any other concerns. - Post Discharge Activity
[2018-10-14] MEDS ORDERED: ACETAMINOPHEN 325 MG TABLET (FP) PO ONE (09:24)
[2018-10-14] MEDS ORDERED: ALBUTEROL SO4 2.5/IPRATROPIUM 0.5 INH SOL 3 ML VIAL.NEB. NEB ONE ×2 (09:28→09:44)
[2018-10-14 09:40] VITALS: TEMP 97.9; BMI 35.4
--- NOTE | 2018-10-14 09:47 | EKG ---
Test Reason : Blood Pressure : / mmHG Vent. Rate : 068 BPM Atrial Rate : 068 BPM P-R Int : 164 ms QRS Dur : 080 ms QT Int : 392 ms P-R-T Axes : 037 025 013 degrees QTc Int : 416 ms NORMAL SINUS RHYTHM POSSIBLE LEFT ATRIAL ENLARGEMENT ANTERIOR INFARCT , AGE UNDETERMINED ABNORMAL ECG WHEN COMPARED WITH ECG OF 18-MAY-2018 14:12, POOR R PROGRESSION Confirmed by JILLIAN DAMON MD ([id number]) on 10/14/2018 9:47:20 AM Referred By: Confirmed By:JILLIAN DAMON MD
[2018-10-14] MEDS ORDERED: oxyCODONE HCL 5 MG TABLET PO ONE (09:54)
[2018-10-14] MEDS ORDERED: ACETAMINOPHEN 325 MG TABLET (FP) ONE (09:59)
[2018-10-14] MEDS ORDERED: oxyCODONE HCL 5 MG TABLET ONE (09:59)
--- NOTE | 2018-10-14 09:59 | PDOC ---
Attending Attestation - Resident Resident Name: JohnAle - ED Attending Attestation I have performed the following: I have examined & evaluated the patient, The case was reviewed & discussed with the resident, I agree w/resident's findings & plan - HPI HPI: 10/14/18 10:27 63-year-old female with history of hypertension, chronic back pain presents with episode of chest pain and trouble breathing this morning. Patient was in her baseline state of health, after walking back from the restroom this morning developed chest pressure with shortness of breath and intermittent palpitations , activated EMS and noted to have her blood pressure very elevated, she was given nitroglycerin and aspirin and brought to the emergency department. Blood pressure now improved, feels slightly better, no other complaints. Denies any exertional chest pain or dyspnea, no fevers or chills or cough. - Physicial Exam PE: 10/14/18 10:29 Vital signs normal Well-appearing, speaking full sentences No JVD, heart is regular without obvious murmur Lungs are overall clear, subtle crackles at the bases with end expiratory wheezes, otherwise good air entry without accessory muscle use Left leg with posterior splint in place, bruising to the lateral aspect over the fifth toe, also with bruising and tenderness medially over the left calf without circumferential edema or tenderness, neurovascularly intact - Medical Decision Making 10/14/18 10:30 63-year-old female with transient episode of chest pain and trouble breathing, hypertensive with EMS now improved after nitroglycerin. presentation could be most consistent with symptomatic hypertension, now resolved. no evidence for APE or CHF, had normal echo on prior admission in April 2018. r/o dvt given LLE injury and swelling, if positive consider PE. labs ekg, trop cxr, LLE doppler monitor, reassess Heart Score/ECG Review #1 ECG reviewed & interpreted by me at: 09:03 General ECG Interpretation: Sinus Rhythm, Normal Rate (68), Normal Intervals ( qtc 416), No acute ischemic changes Compared to previous ECG there are: No significant change (05/18/18)
[2018-10-14 11:09] LABS: BASO % 0.9 % (0-2.0); HEMATOCRIT 43.8 % (32.4-45.2); HEMOGLOBIN 14.1 GM/dL (10.7-15.3); LYMPH % 21.8 % (8-40); MCH 30.6 pg (25.7-33.7); MCHC 32.3 g/dl (32.0-36.0); MEAN CELL VOLUME 94.7 fl (80-96); MEAN PLT VOLUME 9.7 fl (7.5-11.1); MONO % 6.3 % (3.8-10.2); PLATELET COUNT 251 K/MM3 (134-434); RBC 4.62 M/mm3 (3.60-5.2); RDW 14.6 % (11.6-15.6); WHITE BLOOD COUNT 8.6 K/mm3 (4.0-10.0)
[2018-10-14 11:30] LABS: ALBUMIN 4.5 g/dl (3.4-5.0); ALK PHOS 129 U/L (45-117); ANION GAP 6 MMOL/L (8-16); BILIRUBIN,TOTAL 0.2 mg/dL (0.2-1); BLOOD UREA NITROGEN 18 mg/dL (7-18); CALCIUM 9.1 mg/dL (8.5-10.1); CHLORIDE 108 mmol/L (98-107); CO2 25 mmol/L (21-32); CREATININE 0.6 mg/dL (0.55-1.3); GLUCOSE,RANDOM 97 mg/dL (74-106); SGOT/AST 18 U/L (15-37); SGPT/ALT 25 U/L (13-61); SODIUM 139 mmol/L (136-145); TOT PROT 8.1 g/dl (6.4-8.2)
[2018-10-14 11:57] LABS: INR 0.95 (0.83-1.09); PROTHROMBIN TIME (PATIENT) 11.2 SEC (9.7-13.0)
[2018-10-14 11:59] LABS: ACTIVATED PTT 36.6 SECONDS (25.2-36.5)
[2018-10-14 14:40] LABS: URINE APPEARANCE CLEAR; URINE BILIRUBIN NEGATIVE (<2.0 mg/dL); URINE COLOR YELLOW; URINE GLUCOSE (UA) NEGATIVE (NEGATIVE); URINE KETONE NEGATIVE (NEGATIVE); URINE LEUK ESTERASE NEGATIVE (NEGATIVE); URINE NITRITE NEGATIVE (NEGATIVE); URINE PROTEIN NEGATIVE (NEGATIVE); URINE UROBILINOGEN NEGATIVE mg/dL (0.2-1.0)
[2018-10-14 16:00] VITALS: BP 169/78; PULSE 76
== END 2018-10-14 16:07 | disposition home or self-care (01) ==
LOC: JER 08:46
PROC: 3E0F7GC Introduction of Other Therapeutic Substance into Respiratory Tract, Via Natural or Artificial Opening (ICD-10-PCS; principal; 2018-10-14)
DX: R07.89 Other chest pain (principal); I48.91 Unspecified atrial fibrillation; I10 Essential (primary) hypertension; E11.9 Type 2 diabetes mellitus without complications; J45.909 Unspecified asthma, uncomplicated; Z87.891 Personal history of nicotine dependence; E78.00 Pure hypercholesterolemia, unspecified
CPT/HCPCS: 36415; 71046-TC-FY; 80053; 81003; 84484; 85025; 85610; 85730; 87086; 93005; 93010; 93971-TC; 99285-25

== ENCOUNTER 2018-12-25 12:08 | Emergency (ER) | payer OTHER ==
--- NOTE | 2018-12-25 12:21 | PDOC ---
ED Treatment Course - LABORATORY CBC & Chemistry Diagram: 12/25/18 13:00 12/25/18 12:24 Medical Decision Making - Medical Decision Making 12/25/18 12:21 63 yo F h/o ulcers and diverticulosis She presents to the ER with a complaint of severe abdominal pain No fevers or chills No vomiting Unable to tolerate po due to pain Pt seen by Midlevel Provider under my direct supervision Pt interviewed and examined Ancillary studies reviewed - Ct with no acute pathology I agree with plan as outlined by Midlevel Provider Will discharge to home 12/25/18 12:52 Laboratory Tests 12/25/18 12/25/18 12/25/18 12:24 12:24 13:00 WBC 7.3 Hgb 12.7 Hct 35.9 D Plt Count 172 D INR 0.93 Sodium 139 Potassium 3.6 Chloride 108 H Carbon Dioxide 26 BUN 14 Creatinine 0.7 Random Glucose 117 H Lactic Acid Creatine Kinase 146 Troponin I < 0.02 Lipase 12/25/18 12/25/18 13:00 13:00 WBC Hgb Hct Plt Count INR Sodium Potassium Chloride Carbon Dioxide BUN Creatinine Random Glucose Lactic Acid 1.1 Creatine Kinase Troponin I Lipase 235 12/26/18 08:27 *DC/Admit/Observation/Transfer Diagnosis at time of Disposition: Abdominal pain - Discharge Dispostion Disposition: HOME Condition at time of disposition: Stable - Prescriptions Prescriptions: Ondansetron [Zofran Odt -] 4 mg SL TID #10 od.tablet Sucralfate Oral Suspension [Carafate *Oral Susp*] 1 gm PO BID #140 ml - Referrals Referrals: Yariel Springer [Primary Care Provider] - - Patient Instructions Printed Discharge Instructions: DI for Peptic Ulcer Additional Instructions: Your evaluated for your abdominal pain today Your CAT scan did not show any acute pathology today. Her pain was most likely due to your ulcers. Please continue your medication (Pepcid) as prescribed by your doctor. Please take the Carafate as directed to help with her symptoms. He may take Zofran every 8 hours as needed for nausea. 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 Return to the ER for increasing pain, shortness of breath, vomiting, or if you have any changes in your symptoms. - Post Discharge Activity
[2018-12-25] MEDS ORDERED: morphine CARPU-JECT 4 MG/1 ML DISP.SYRIN IVPUSH ONE (12:26)
[2018-12-25] MEDS ORDERED: FAMOTIDINE 20 MG/50 ML IVPB 20 MG/50 ML MG IVPB ONE ×2 (12:26→12:43)
[2018-12-25] MEDS ORDERED: SODIUM CHLORIDE 1,000 ML IV STA (12:26)
[2018-12-25] MEDS ORDERED: ONDANSETRON 4 MG/2 ML VIAL IVPUSH ONE (12:26)
--- NOTE | 2018-12-25 12:27 | PDOC ---
History of Present Illness - General Stated Complaint: ABD PAIN Time Seen by Provider: 12/25/18 12:17 History Source: Patient Exam Limitations: No Limitations - History of Present Illness Initial Comments: 12/25/18 18:51 Patient is a 63-year-old female with past medical history of PUD, seizure disorder, chronic back pain, who presents to the ER today with epigastric pain and lower abdominal pain. Patient states that her symptoms intensified this afternoon and she reports a sharp pain to her epigastric region. She also reports that she has a cramping sensation to the lower abdomen. She also admits to associated nausea and vomiting She's been taking Pepcid at home with some relief of her symptoms. She states that she is to be followed by gastroenterology at [facility] for endoscopy and colonoscopy in the middle of December. Denies fevers, chills, chest pain, difficulty breathing, shortness of breath, frequency, urgency, hematuria and diarrhea. Past History - Travel Traveled outside of the country in the last 30 days: No Close contact w/someone who was outside of country & ill: No - Past Medical History Allergies/Adverse Reactions: Allergies Allergy/AdvReac Type Severity Reaction Status Date / Time No Known Allergies Allergy Verified 12/25/18 12:40 Home Medications: Ambulatory Orders Gabapentin [Neurontin] 800 mg PO TID 04/11/15 Losartan/Hydrochlorothiazide [Losartan-Hctz 100-25 mg Tablet] 1 each PO DAILY Amlodipine Besylate [Norvasc -] 10 mg PO DAILY #30 tablet 03/27/17 Phenytoin Na Extended [Dilantin -] 100 mg PO TID #0 cap 09/14/17 Zolpidem Tartrate [Ambien] 10 mg PO HS PRN tablet MDD 1 09/14/17 Quetiapine Fumarate [Seroquel] 200 tab PO HS 12/31/17 cloNIDine HCL [Catapres -] 0.1 mg PO TID 12/31/17 Docusate Sodium [Colace -] 100 mg PO BID PRN capsule 01/31/18 Oxycodone HCl/Acetaminophen [Percocet 5-325 mg Tablet] 1 combo PO Q6H PRN #20 tablet MDD 4 05/23/18 Carisoprodol [Soma (Nf)] 350 mg PO TID 12/17/18 Ondansetron [Zofran Odt -] 4 mg SL TID #10 od.tablet 12/25/18 Sucralfate Oral Suspension [Carafate *Oral Susp*] 1 gm PO BID #140 ml 12/25/18 Anemia: No Asthma: Yes Cancer: No Cardiac Disorders: Yes (afib) CVA: No COPD: No CHF: No Diabetes: Yes GI Disorders: Yes (COLITIS) Disorders: No HTN: Yes Hypercholesterolemia: Yes Liver Disease: No Seizures: Yes (Epilepsy) Thyroid Disease: No - Surgical History Abdominal Surgery: No Appendectomy: Yes Cardiac Surgery: No Cholecystectomy: No Lung Surgery: No Neurologic Surgery: No Orthopedic Surgery: Yes (both knee replacement) - Immunization History Immunization Up to Date: Yes - Suicide/Smoking/Psychosocial Hx Smoking Status: No Smoking History: Former smoker Years of Tobacco Use: 10 Have you smoked in the past 12 months: No Number of Cigarettes Smoked Daily: 0 If you are a former smoker, when did you quit?: 2002 - smoked 1ppwk for about 10 yrs Hx Alcohol Use: No Drug/Substance Use Hx: No Substance Use Type: None Hx Substance Use Treatment: No Review of Systems - Review of Systems Able to Perform ROS?: Yes Comments:: 12/25/18 12:24 CONSTITUTIONAL: Absent: fever, chills, diaphoresis, generalized weakness, malaise, loss of appetite HEENT: Absent: rhinorrhea, nasal congestion, throat pain, throat swelling, difficulty swallowing, mouth swelling, ear pain, eye pain, visual Changes CARDIOVASCULAR: Absent: chest pain, loss of consciousness, palpitations, irregular heart rate, peripheral edema RESPIRATORY: Absent: cough, shortness of breath, dyspnea with exertion, orthopnea, wheezing, stridor, hemoptysis GASTROINTESTINAL: Present: abdominal pain Absent: abdominal distension, nausea, vomiting, diarrhea , constipation, melena, hematochezia GENITOURINARY: Absent: dysuria, frequency, urgency, hesitancy, hematuria, flank pain, genital pain MUSCULOSKELETAL: Absent: myalgia, arthralgia, joint swelling SKIN: Absent: rash, itching, pallor HEMATOLOGIC/IMMUNOLOGIC: Absent: easy bleeding, easy bruising, lymphadenopathy, frequent infections ENDOCRINE: Absent: unexplained weight gain, unexplained weight loss, heat intolerance, cold intolerance NEUROLOGIC: Absent: headache, focal weakness or paresthesias, dizziness, unsteady gait, seizure, mental status changes, bladder or bowel incontinence PSYCHIATRIC: Absent: anxiety, depression, suicidal or homicidal ideation, hallucinations. Is the patient limited German proficient: No *Physical Exam - Physical Exam Comments: 12/25/18 12:24 GENERAL: Well developed, well nourished. Awake and alert. Mild acute distress. HEENT: Normocephalic, atraumatic. PERRLA, EOMI. No conjunctival pallor. Sclera are non- icteric. Moist mucous membranes. Oropharynx is clear. NECK: Supple. Full ROM. No JVD. Carotid pulses 2+ and symmetric, without bruits. No thyromegaly. No lymphadenopathy. CARDIOVASCULAR: Regular rate and rhythm. No murmurs, rubs, or gallops. Distal pulses are 2+ and symmetric. PULMONARY: No evidence of respiratory distress. Lungs clear to auscultation bilaterally. No wheezing, rales or rhonchi. ABDOMINAL: Tenderness to palpation of the epigastric region and lower abdomen LLQ-[id number]. Soft. mildly distended. No rebound. (+) guarding. No organomegaly. Normoactive bowel sounds. MUSCULOSKELETAL Normal range of motion at all joints. No bony deformities or tenderness. No CVA tenderness. EXTREMITIES: No cyanosis. No clubbing. No edema. No calf tenderness. SKIN: Warm and dry. Normal capillary refill. No rashes. No jaundice. NEUROLOGICAL: Alert, awake, appropriate. Cranial nerves 2-12 intact. No deficits to light touch and temperature in face, upper extremities and lower extremities. No motor deficits in the in face, upper extremities and lower extremities. Normoreflexic in the upper and lower extremities. Normal speech. Toes are down- going bilaterally. Gait is normal without ataxia. PSYCHIATRIC: Cooperative. Good eye contact. Appropriate mood and affect. ED Treatment Course - LABORATORY CBC & Chemistry Diagram: 12/25/18 13:00 12/25/18 12:24 *DC/Admit/Observation/Transfer Diagnosis at time of Disposition: Abdominal pain Qualifiers: Abdominal location: epigastric Qualified Code(s): R10.13 - Epigastric pain - Discharge Dispostion Disposition: HOME Condition at time of disposition: Stable Decision to Admit order: No - Prescriptions Prescriptions: Ondansetron [Zofran Odt -] 4 mg SL TID #10 od.tablet Sucralfate Oral Suspension [Carafate *Oral Susp*] 1 gm PO BID #140 ml - Referrals Referrals: Yariel Springer [Primary Care Provider] - - Patient Instructions Printed Discharge Instructions: DI for Peptic Ulcer Additional Instructions: Your evaluated for your abdominal pain today Your CAT scan did not show any acute pathology today. Her pain was most likely due to your ulcers. Please continue your medication (Pepcid) as prescribed by your doctor. Please take the Carafate as directed to help with her symptoms. He may take Zofran every 8 hours as needed for nausea. 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 Return to the ER for increasing pain, shortness of breath, vomiting, or if you have any changes in your symptoms. - Post Discharge Activity
[2018-12-25 12:40] VITALS: BMI 30.6
[2018-12-25] MEDS ORDERED: ONDANSETRON 4 MG/2 ML VIAL ONE (12:43)
[2018-12-25] MEDS ORDERED: morphine SULFATE 4 MG/ML VIAL ONE (12:43)
[2018-12-25 13:22] LABS: BASO % 0.9 % (0-2.0); EOS % 1.2 % (0-4.5); HEMATOCRIT 35.9 % (32.4-45.2); HEMOGLOBIN 12.7 GM/dL (10.7-15.3); LYMPH % 23.8 % (8-40); MCH 33.4 pg (25.7-33.7); MCHC 35.3 g/dl (32.0-36.0); MEAN CELL VOLUME 94.4 fl (80-96); MEAN PLT VOLUME 10.7 fl (7.5-11.1); MONO % 7.1 % (3.8-10.2); PLATELET COUNT 172 K/MM3 (134-434); RBC 3.81 M/mm3 (3.60-5.2); RDW 13.7 % (11.6-15.6); WHITE BLOOD COUNT 7.3 K/mm3 (4.0-10.0)
[2018-12-25 13:41] LABS: INR 0.93 (0.83-1.09)
[2018-12-25 14:02] LABS: ALBUMIN 3.8 g/dl (3.4-5.0); ALK PHOS 126 U/L (45-117); ANION GAP 5 MMOL/L (8-16); BILIRUBIN,TOTAL 0.3 mg/dL (0.2-1); BLOOD UREA NITROGEN 14 mg/dL (7-18); CALCIUM 8.7 mg/dL (8.5-10.1); CHLORIDE 108 mmol/L (98-107); CO2 26 mmol/L (21-32); CREATININE 0.7 mg/dL (0.55-1.3); GLUCOSE,RANDOM 117 mg/dL (74-106); POTASSIUM 3.6 mmol/L (3.5-5.1); SGOT/AST 12 U/L (15-37); SGPT/ALT 17 U/L (13-61); SODIUM 139 mmol/L (136-145); TOT PROT 7.1 g/dl (6.4-8.2)
[2018-12-25] MEDS ORDERED: ACETAMINOPHEN 1000 MG/100 ML VIAL (NON FORMULARY) IVPB ONE (15:50)
[2018-12-25] MEDS ORDERED: ACETAMINOPHEN INJECTION 100 ML IVPB ONE (16:27)
[2018-12-25 16:39] LABS: URINE APPEARANCE CLEAR; URINE BILIRUBIN NEGATIVE (<2.0 mg/dL); URINE COLOR STRAW; URINE GLUCOSE (UA) NEGATIVE (NEGATIVE); URINE KETONE NEGATIVE (NEGATIVE); URINE LEUK ESTERASE NEGATIVE (NEGATIVE); URINE NITRITE NEGATIVE (NEGATIVE); URINE PROTEIN NEGATIVE (NEGATIVE); URINE UROBILINOGEN NEGATIVE mg/dL (0.2-1.0)
[2018-12-25] MEDS ORDERED: SUCRALFATE 1 GM/10 ML UNIT DOSE CUPS PO ONE (17:21)
[2018-12-25] MEDS ORDERED: SUCRALFATE 1 GM TABLET (FP) ONE (17:46)
--- NOTE | 2018-12-25 18:03 | EKG ---
Test Reason : Blood Pressure : / mmHG Vent. Rate : 092 BPM Atrial Rate : 092 BPM P-R Int : 160 ms QRS Dur : 084 ms QT Int : 368 ms P-R-T Axes : 037 038 005 degrees QTc Int : 455 ms NORMAL SINUS RHYTHM POSSIBLE LEFT ATRIAL ENLARGEMENT ANTERIOR INFARCT (CITED ON OR BEFORE 14-OCT-2018) ABNORMAL ECG WHEN COMPARED WITH ECG OF 14-OCT-2018 09:03, NONSPECIFIC T WAVE ABNORMALITY NOW EVIDENT IN ANTERIOR LEADS Confirmed by PIOTR CALLES MD ([id number]) on 12/25/2018 6:03:45 PM Referred By: Confirmed By:PIOTR CALLES MD
[2018-12-25] MEDS ORDERED: ONDANSETRON *ODT* 4 MG TABLET SL ONE (18:35)
[2018-12-25 19:08] VITALS: BP 132/88; PULSE 99; TEMP 98.2
== END 2018-12-25 19:08 | disposition home or self-care (01) ==
LOC: JER 12:08
PROC: 3E033NZ Introduction of Analgesics, Hypnotics, Sedatives into Peripheral Vein, Percutaneous Approach (ICD-10-PCS; principal; 2018-12-25)
DX: R10.13 Epigastric pain (principal); K27.9 Peptic ulcer, site unspecified, unspecified as acute or chronic, without hemorrhage or perforation; I10 Essential (primary) hypertension; I48.91 Unspecified atrial fibrillation; E78.00 Pure hypercholesterolemia, unspecified; M54.9 Dorsalgia, unspecified; G89.29 Other chronic pain; Z87.09 Personal history of other diseases of the respiratory system; Z96.653 Presence of artificial knee joint, bilateral
CPT/HCPCS: 36415; 74177-TC; 80053; 81003; 82550; 83605; 83690; 84484; 85025; 85610; 86850; 86900; 86901; 87086; 93005; 93010; 96374; 99282-25; J0131; J7030; Q9967

== ENCOUNTER 2019-05-26 22:23 | Emergency (ER) | payer OTHER ==
[2019-05-26 22:30] VITALS: BMI 31.1
[2019-05-27] MEDS ORDERED: ONDANSETRON 4 MG/2 ML VIAL IVPUSH ONE (00:38)
[2019-05-27] MEDS ORDERED: SODIUM CHLORIDE 0.9% 1000 ML INFUS.BAG IV ONE (00:38)
[2019-05-27] MEDS ORDERED: ACETAMINOPHEN 1000 MG/100 ML VIAL (NON FORMULARY) IVPB ONE (00:38)
--- NOTE | 2019-05-27 00:38 | PDOC ---
History of Present Illness - General Chief Complaint: Pain Stated Complaint: ADDOMINAL PAIN History Source: Patient Exam Limitations: No Limitations - History of Present Illness Initial Comments: 05/27/19 00:34 63 yo F with h/o htn prev back surgery here today c/o lower abd pain n/v does have dysuria. no f/c has thrown up several times today. no mod factors. prior surgical history of ectopic, and appendectomy. no other complaints. no sick contacts. pain started yesterday. Past History - Past Medical History Allergies/Adverse Reactions: Allergies Allergy/AdvReac Type Severity Reaction Status Date / Time No Known Allergies Allergy Verified 12/25/18 12:40 Home Medications: Ambulatory Orders Gabapentin [Neurontin] 800 mg PO TID 04/11/15 Losartan/Hydrochlorothiazide [Losartan-Hctz 100-25 mg Tablet] 1 each PO DAILY Amlodipine Besylate [Norvasc -] 10 mg PO DAILY #30 tablet 03/27/17 Phenytoin Na Extended [Dilantin -] 100 mg PO TID #0 cap 09/14/17 Zolpidem Tartrate [Ambien] 10 mg PO HS PRN tablet MDD 1 09/14/17 Quetiapine Fumarate [Seroquel] 200 tab PO HS 12/31/17 cloNIDine HCL [Catapres -] 0.1 mg PO TID 12/31/17 Docusate Sodium [Colace -] 100 mg PO BID PRN capsule 01/31/18 Oxycodone HCl/Acetaminophen [Percocet 5-325 mg Tablet] 1 combo PO Q6H PRN #20 tablet MDD 4 05/23/18 Carisoprodol [Soma (Nf)] 350 mg PO TID 10/14/18 Ondansetron [Zofran Odt -] 4 mg SL TID #10 od.tablet 12/25/18 Sucralfate Oral Suspension [Carafate *Oral Susp*] 1 gm PO BID #140 ml 12/25/18 Ciprofloxacin HCl [Cipro] 500 mg PO BID #14 tablet 05/27/19 metroNIDAZOLE [Flagyl -] 500 mg PO BID #14 tablet 05/27/19 Anemia: No Asthma: Yes Cancer: No Cardiac Disorders: Yes (afib) CVA: No COPD: No CHF: No Diabetes: Yes GI Disorders: Yes (COLITIS) Disorders: No HTN: Yes Hypercholesterolemia: Yes Liver Disease: No Seizures: Yes (Epilepsy) Thyroid Disease: No - Surgical History Abdominal Surgery: No Appendectomy: Yes Cardiac Surgery: No Cholecystectomy: No Lung Surgery: No Neurologic Surgery: No Orthopedic Surgery: Yes (both knee replacement) - Immunization History Immunization Up to Date: Yes - Suicide/Smoking/Psychosocial Hx Smoking Status: No Smoking History: Never smoked Years of Tobacco Use: 10 Have you smoked in the past 12 months: No Number of Cigarettes Smoked Daily: 0 If you are a former smoker, when did you quit?: 2002 - smoked 1ppwk for about 10 yrs Hx Alcohol Use: No Drug/Substance Use Hx: No Substance Use Type: None Hx Substance Use Treatment: No Review of Systems - Review of Systems Constitutional: No: Chills, Diaphoresis, Fever HEENTM: No: Eye Pain, Blurred Vision Respiratory: No: Cough, Orthopnea Cardiac (ROS): No: Chest Pain, Edema ABD/GI: Yes: Nausea, Vomiting : Yes: Burning, Dysuria Musculoskeletal: No: Back Pain, Gout Integumentary: No: See HPI, Bruising, Change in Color Neurological: No: Headache, Numbness All Other Systems: Reviewed and Negative *Physical Exam - Vital Signs Last Vital Signs Temp Pulse Resp BP Pulse Ox 98.4 F 108 H 18 168/107 H 97 05/26/19 22:26 05/26/19 22:26 05/26/19 22:26 05/26/19 22:26 05/26/19 22:26 - Physical Exam Comments: 05/27/19 00:36 awake alert lungs clear bilat heart rrr nomrg abd soft nt nd ext wwp. abd soft mild suprapubc , llq ttp. no rebound no guarding. ED Treatment Course - LABORATORY CBC & Chemistry Diagram: 05/27/19 01:42 05/27/19 01:42 Medical Decision Making - Medical Decision Making 05/27/19 00:37 63 yo F with h/o abd surgery here with abd pain lower abd, n/v. differential gastritis diverticulitis dehydration plan ivf, antieemtics tylenol ct a/p ua 05/27/19 06:[address] with proctocolitis likley infectious. labs unremarkable. paramjit co home wiht cipaustyn flagyl. has fu with gi, has had colonoscopy few months ago is scheduled for endoscopy. *DC/Admit/Observation/Transfer Diagnosis at time of Disposition: Colitis - Discharge Dispostion Disposition: HOME Condition at time of disposition: Improved - Referrals Referrals: Yariel Springer [Primary Care Provider] - - Patient Instructions Printed Discharge Instructions: DI for Colitis Additional Instructions: you should follow up with your gastroeterologist. take ciprofloxacin 500 mg twice daily x 7 days. take flagyl 500 mg twice daily x 7days. return fo any feves vomiting or any concerns - Post Discharge Activity
[2019-05-27] MEDS ORDERED: ALBUTEROL SO4 2.5/IPRATROPIUM 0.5 INH SOL 3 ML VIAL.NEB. NEB ONE ×2 (00:41→00:52)
[2019-05-27] MEDS ORDERED: ACETAMINOPHEN INJECTION 100 ML IVPB ONE (00:52)
[2019-05-27] MEDS ORDERED: ONDANSETRON 4 MG/2 ML VIAL ONE (00:52)
[2019-05-27 02:23] LABS: MCH 31.8 pg (25.7-33.7); WHITE BLOOD COUNT 10.2 K/mm3 (4.0-10.0)
[2019-05-27 02:27] LABS: PH,URINE 6.5 (5.0-8.0); URINE APPEARANCE CLEAR; URINE BILIRUBIN NEGATIVE (NEGATIVE); URINE COLOR YELLOW; URINE GLUCOSE (UA) NEGATIVE (NEGATIVE); URINE KETONE NEGATIVE (NEGATIVE); URINE LEUK ESTERASE NEGATIVE (NEGATIVE); URINE NITRITE NEGATIVE (NEGATIVE); URINE PROTEIN NEGATIVE (NEGATIVE); URINE UROBILINOGEN 0.2 mg/dL (0.2-1.0)
[2019-05-27 02:29] LABS: EOS % 1.5 % (0-4.5); LYMPH % 30.4 % (8-40); MCHC 34.2 g/dl (32.0-36.0); MEAN CELL VOLUME 93.2 fl (80-96); MEAN PLT VOLUME 11.1 fl (7.5-11.1); MONO % 8.3 % (3.8-10.2); NEUT % 58.8 % (42.8-82.8); PLATELET COUNT 201 K/MM3 (134-434); RBC 4.08 M/mm3 (3.60-5.2); RDW 13.8 % (11.6-15.6)
[2019-05-27 02:51] LABS: ALBUMIN 4.3 g/dl (3.4-5.0); BILIRUBIN,TOTAL 0.5 mg/dL (0.2-1); BLOOD UREA NITROGEN 17.8 mg/dL (7-18); CALCIUM 9.5 mg/dL (8.5-10.1); CREATININE 0.7 mg/dL (0.55-1.3); POTASSIUM 3.5 mmol/L (3.5-5.1)
[2019-05-27 05:38] VITALS: BP 117/89; PULSE 80; TEMP 98
== END 2019-05-27 06:56 | disposition home or self-care (01) ==
LOC: JER 22:23
PROC: 3E0F7GC Introduction of Other Therapeutic Substance into Respiratory Tract, Via Natural or Artificial Opening (ICD-10-PCS; principal; 2019-05-26)
PROC: 3E033GC Introduction of Other Therapeutic Substance into Peripheral Vein, Percutaneous Approach (ICD-10-PCS; 2019-05-26)
PROC: 3E033NZ Introduction of Analgesics, Hypnotics, Sedatives into Peripheral Vein, Percutaneous Approach (ICD-10-PCS; 2019-05-26)
DX: K52.9 Noninfective gastroenteritis and colitis, unspecified (principal); I10 Essential (primary) hypertension; E11.9 Type 2 diabetes mellitus without complications; J45.909 Unspecified asthma, uncomplicated; I48.91 Unspecified atrial fibrillation; G40.909 Epilepsy, unspecified, not intractable, without status epilepticus
CPT/HCPCS: 36415; 74177-TC; 80053; 81003; 83690; 85025; 94640; 96374; 96375; 99283-25; J0131; J7030

== ENCOUNTER 2019-07-31 04:22 | Inpatient (IN) | payer OTHER ==
[2019-07-31] MEDS ORDERED: SODIUM CHLORIDE 1,000 ML IV STA (05:17)
[2019-07-31] MEDS ORDERED: FAMOTIDINE 20 MG/50 ML IVPB 20 MG/50 ML MG IVPB ONE ×2 (05:18→05:32)
[2019-07-31] MEDS ORDERED: ACETAMINOPHEN 1000 MG/100 ML VIAL (NON FORMULARY) IVPB ONE (05:18)
--- NOTE | 2019-07-31 05:30 | PDOC ---
History of Present Illness - General Chief Complaint: Pain Stated Complaint: ABDOMINAL PAIN Time Seen by Provider: 07/31/19 04:35 - History of Present Illness Initial Comments: 07/31/19 05:23 This is a64 year old female with PMH significant for HTN, asthma, and proctocoloitis. She presented to the ER with complaints of diffuse abdominal pain that began 2 days ago. The pain was gradual in onset, and reached an intensity of level of 10/10 last night. She describes it as a dull, squeezing pain, constant in nature, non-radiating, with no recognized aggravating or alleviating factors. The pain is associated with nausea, multiple episodes of nbnb vomiting (producing only mucus), and chills. Her last meal was on Sunday, and she has only been taking liquids since then. Her last BM was earlier today, and described as brown and hard. She has had no recent illness, no changes in her medications, and her last colonsocopy was in January, with no abnormalities reported as far as the patient is aware. She was previously admitted in the ER on 05/27/19 with complaints of bdominal pain, and was found to have proctocoloitis on CT AP, and was treated with Cipro/Flagyl. Past History - Travel Traveled outside of the country in the last 30 days: No Close contact w/someone who was outside of country & ill: No - Past Medical History Allergies/Adverse Reactions: Allergies Allergy/AdvReac Type Severity Reaction Status Date / Time No Known Allergies Allergy Verified 07/31/19 05:24 Home Medications: Ambulatory Orders Gabapentin [Neurontin] 800 mg PO TID 04/11/15 Losartan/Hydrochlorothiazide [Losartan-Hctz 100-25 mg Tablet] 1 each PO DAILY Amlodipine Besylate [Norvasc -] 10 mg PO DAILY #30 tablet 03/27/17 Phenytoin Na Extended [Dilantin -] 100 mg PO TID #0 cap 09/14/17 Zolpidem Tartrate [Ambien] 10 mg PO HS PRN tablet MDD 1 09/14/17 Quetiapine Fumarate [Seroquel -] 200 tab PO HS 12/31/17 cloNIDine HCL [Catapres -] 0.1 mg PO TID 12/31/17 Carisoprodol [Soma (Nf)] 350 mg PO TID 10/14/18 Anemia: No Asthma: Yes Cancer: No Cardiac Disorders: Yes (afib) CVA: No COPD: No CHF: No Diabetes: Yes GI Disorders: Yes (COLITIS) Disorders: No HTN: Yes Hypercholesterolemia: Yes Liver Disease: No Seizures: Yes (Epilepsy) Thyroid Disease: No - Surgical History Abdominal Surgery: No Appendectomy: Yes Cardiac Surgery: No Cholecystectomy: No Lung Surgery: No Neurologic Surgery: No Orthopedic Surgery: Yes (both knee replacement) - Immunization History Immunization Up to Date: Yes - Psycho Social/Smoking Cessation Hx Smoking Status: No Smoking History: Never smoked Years of Tobacco Use: 10 Have you smoked in the past 12 months: No Number of Cigarettes Smoked Daily: 0 If you are a former smoker, when did you quit?: 2002 - smoked 1ppwk for about 10 yrs Hx Alcohol Use: No Drug/Substance Use Hx: No Substance Use Type: None Hx Substance Use Treatment: No Review of Systems - Review of Systems Constitutional: Yes: Weakness. No: Symptoms Reported, See HPI, Chills, Diaphoresis, Fever, Loss of Appetite, Malaise, Night Sweats, Weight Stable, Unintentional Wgt. Loss, Unexplained wgt Loss, Other HEENTM: No: Symptoms Reported, See HPI, Eye Pain, Blurred Vision, Tearing, Recent change in vision, Double Vision, Cataracts, Ear Pain, Ocular Prothesis, Ear Discharge, Nose Pain, Nose Congestion, Tinnitus, Nose Bleeding, Hearing Loss , Throat Pain, Throat Swelling, Mouth Pain, Dental Problems, Difficulty Swallowing, Mouth Swelling, Other Respiratory: Yes: Shortness of Breath. No: Symptoms reported, See HPI, Cough, Orthopnea, SOB with Exertion, SOB at Rest, Stridor, Wheezing, Productive cough, Hemoptysis, Other Cardiac (ROS): No: Symptoms Reported, See HPI, Chest Pain, Edema, Irregular Heart Rate, Lightheadedness, Palpitations, Syncope, Chest Tightness, Other ABD/GI: Yes: Abdominal cramping. No: Symptoms Reported, See HPI, Abdominal Distended, Abd. Pain w/ defecation, Blood Streaked Bowels, Constipated, Diarrhea , Difficulty Swallowing, Nausea, Poor Appetite, Poor Fluid Intake, Rectal Bleeding, Vomiting, Indigestion, Tarry Stools, Other : Yes: Burning. No: Symptoms Reported, See HPI, Dysuria, Discharge, Frequency , Flank Pain, Hematuria, Incontinence, Pain, Urgency, Testicular Mass, Testicular Swelling, Lesions, Testicular Pain, Other Musculoskeletal: No: Symptoms Reported, See HPI, Back Pain, Gout, Joint Pain, Joint Swelling, Muscle Pain, Muscle Weakness, Neck Pain, Joint Stiffness, Other Integumentary: No: Symptoms Reported, See HPI, Bruising, Change in Color, Change in Hair/Nails, Dryness, Erythema, Flushing, Lesions, Lumps, Pallor, Pruritus, Rash, Sweating, Other Neurological: No: Symptoms reported, See HPI, Headache, Numbness, Paresthesia, Pre-Existing Deficit, Seizure, Tingling, Tremors, Weakness, Unsteady Gait, Ataxia, Dizziness, Other Psychiatric: No: Anxiety, Depression, Frequent Crying, Stressors, Sleep Pattern Change, Emotional Problems, Mood Swings, Change in Appetite, Other *Physical Exam - Physical Exam Comments: 07/31/19 05:34 GI: Soft, severe tenderness to palpation over epigastrium and umbilicus, positive rebound tenderness and guarding, positive Psoas sign General Appearance: Yes: Appropriately Dressed, Apparent Distress. No: Nourished, Disheveled, Mild Distress, Moderate Distress, Severe Distress, Alcohol on Breath, Intoxicated, Cachetic, Obese, Thin, Other HEENT: positive: Normal Voice, Symmetrical, Pharynx Normal. negative: EOMI, TASHA, Normal ENT Inspection, TMs Normal, Pale Conjunctivae, Photophobia, Scleral Icterus (R), Scleral Icterus (L), Muffled/Hoarse voice, Pharyngeal Erythema, Tonsillar Exudate, Tonsillar Erythema, Nasal Congestion, Rhinorrhea, Sinus Tenderness, Orbits, Hearing Decreased, Hearing Grossly Normal, TM Bulging , TM Dull, TM Erythema, Lesions, Chen, Excessive drooling, Thrush, Other Neck: positive: Trachea midline, Normal Thyroid, Supple. negative: Tender, Rigid, Carotid bruit, Decreased range of motion, Stridor, Lymphadenopathy (R), Lymphadenopathy (L), Rigidity, Tender lateral, Tender midline, Thyromegaly, Other Respiratory/Chest: positive: Accessory Muscle Use. negative: Chest Tender, Lungs Clear, Normal Breath Sounds, Respiratory Distress, Labored Respiration, Rapid RR, Decreased Breath Sounds, Paradoxal Breathing, Crackles, Rales, Rhonchi , Stridor, Wheezing, Hyperresonant, Dullness, Plerual Rub, Other Cardiovascular: positive: Regular Rhythm, Tachycardia. 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 II-XII NML intact, Fully Oriented, Alert, Motor Strength 5/5 Heart Score/ECG Review - Age Age: >/= 65 - Risk Factors Risk Factors Heart Score: Yes Hx Hypertension Based on the list above the patient has:: 1-2 risk factors - ECG Intrepretation Rhythm: Regular Rhythm ED Treatment Course - LABORATORY CBC & Chemistry Diagram: 07/31/19 06:24 07/31/19 06:24 - RADIOLOGY Radiology Studies Ordered: Category Date Time Status ABDOMEN & PELVIS CT WITH CONTR [CT] Stat CT Scan 07/31/19 05:16 Ordered Medical Decision Making - Medical Decision Making 07/31/19 05:36 - CBC/CMP - UA - Lipase - EKG - CT AP with contrast - N/S 1000 bolus - IV Tylenol for pain - Pepcid - Will wait to administer Zofran until EKG is done and QTc noted 07/31/19 06:56 - CMP pending, will send for CT AP after results obtained - Patient signed out to day team Discharge - Discharge Information Problems reviewed: Yes Clinical Impression/Diagnosis: Abdominal pain - Follow up/Referral - Patient Discharge Instructions - Post Discharge Activity
[2019-07-31] MEDS ORDERED: ACETAMINOPHEN INJECTION 100 ML IVPB ONE (05:32)
[2019-07-31 06:40] LABS: BASO % 0.8 % (0-2.0); EOS % 0.2 % (0-4.5); HEMATOCRIT 42.8 % (32.4-45.2); HEMOGLOBIN 14.6 GM/dL (10.7-15.3); LYMPH % 11.9 % (8-40); MCH 31.8 pg (25.7-33.7); MCHC 34.2 g/dl (32.0-36.0); MEAN CELL VOLUME 93.2 fl (80-96); MEAN PLT VOLUME 10.4 fl (7.5-11.1); MONO % 8.1 % (3.8-10.2); PLATELET COUNT 315 K/MM3 (134-434); RBC 4.59 M/mm3 (3.60-5.2); RDW 14.3 % (11.6-15.6)
[2019-07-31] MEDS ORDERED: morphine CARPU-JECT 2 MG/1 ML DISP.SYRIN IVPUSH ONE (06:55)
--- NOTE | 2019-07-31 06:59 | PDOC ---
Attending Attestation - Resident Resident Name: RanulfomargoAlexi - ED Attending Attestation I have performed the following: I have examined & evaluated the patient, The case was reviewed & discussed with the resident, I agree w/resident's findings & plan - HPI HPI: 07/31/19 06:57 see resident hpi - Physicial Exam PE: 07/31/19 06:57 agree with resident exam - Medical Decision Making 07/31/19 06:57 64 yo female with right sided abd pain with vomiting plan for CT A/P signed out to oncoming shift for disposition
[2019-07-31] MEDS ORDERED: MORPHINE SULFATE 2 MG/ML VIAL ONE (07:01)
[2019-07-31 07:14] LABS: ALBUMIN 4.8 g/dl (3.4-5.0); BILIRUBIN,TOTAL 0.7 mg/dL (0.2-1); BLOOD UREA NITROGEN 19.1 mg/dL (7-18); CALCIUM 9.9 mg/dL (8.5-10.1); CREATININE 1.2 mg/dL (0.55-1.3); POTASSIUM 4.1 mmol/L (3.5-5.1); TOT PROT 8.3 g/dl (6.4-8.2)
--- NOTE | 2019-07-31 07:49 | PDOC ---
*Physical Exam - Vital Signs Last Vital Signs Temp Pulse Resp BP Pulse Ox 97.4 F L 92 H 20 136/94 100 07/31/19 04:30 07/31/19 04:30 07/31/19 04:30 07/31/19 04:30 07/31/19 04:30 - Physical Exam General Appearance: Yes: Nourished, Appropriately Dressed. No: Apparent Distress HEENT: positive: Normal ENT Inspection, Normal Voice Neck: positive: Supple Respiratory/Chest: positive: Lungs Clear, Normal Breath Sounds Cardiovascular: positive: Regular Rhythm, Regular Rate, S1, S2 Vascular Pulses: Dorsalis-Pedis (R): 2+, Doralis-Pedis (L): 2+ Gastrointestinal/Abdominal: positive: Normal Bowel Sounds, Tender (Diffuse discomfort), Soft, Distended. negative: Protuberent, Guarding, Rebound Rectal Exam: positive: deferred Musculoskeletal: positive: Normal Inspection. negative: CVA Tenderness Extremity: positive: Normal Capillary Refill, Normal Inspection, Normal Range of Motion, Pelvis Stable Integumentary: positive: Normal Color, Dry, Warm Neurologic: positive: Fully Oriented, Alert, Normal Mood/Affect, Normal Response , Motor Strength 5/5 ED Treatment Course - LABORATORY CBC & Chemistry Diagram: 07/31/19 06:24 07/31/19 06:24 - ADDITIONAL ORDERS Additional order review: Laboratory Results 07/31/19 06:24 Sodium 141 Potassium 4.1 Chloride 108 H Carbon Dioxide 23 Anion Gap 10 BUN 19.1 H Creatinine 1.2 Est GFR (CKD-EPI)AfAm 54.92 Est GFR (CKD-EPI)NonAf 47.39 Random Glucose 100 Calcium 9.9 Total Bilirubin 0.7 AST 18 ALT 19 Alkaline Phosphatase 137 H Total Protein 8.3 H Albumin 4.8 07/31/19 06:24 RBC 4.59 MCV 93.2 MCHC 34.2 RDW 14.3 MPV 10.4 Neutrophils % 79.0 D Lymphocytes % 11.9 D Monocytes % 8.1 Eosinophils % 0.2 D Basophils % 0.8 - RADIOLOGY Radiograph Interpretation: CTAP: EXAM#: TYPE/EXAM: RESULT: [id number] CT/ABDOMEN PELVIS CT WITH CONTR HISTORY PROVIDED: Abdominal pain TECHNIQUE: Sequential axial images were obtained from the domes of the diaphragm through the symphysis pubis following the administration of intravenous contrast material. Evaluation of the lung bases demonstrates an area of nodular atelectasis within the lingula segment of the left upper lobe anteriorly. No pulmonary infiltrates or pleural effusions are present. The liver is normal in size. It is mildly hypodense in texture consistent with diffuse fatty infiltration. No mass lesions are identified within the liver. The spleen, pancreas, adrenal glands and kidneys demonstrate no significant abnormalities. The gallbladder is clear. There is no evidence of intra-abdominal or retroperitoneal lymphadenopathy or fluid collections. The stomach and duodenum are somewhat thick-walled, however, this may be related to underdistention. Clinical correlation is advised. There is no evidence of pneumoperitoneum, bowel obstruction or intra-abdominal abscess. There is no CT evidence of acute appendicitis or diverticulitis. Examination of the pelvis demonstrates no evidence of pelvic masses, fluid collections or lymphadenopathy. There is a moderate amount of retained fecal material within the colon, most marked within the cecum and ascending colon. There is no evidence of acute pathology degenerative arthritic changes most marked at L2-3 and L4- 5. IMPRESSION: 1. Mild diffuse fatty infiltration of the liver. 2. Fecal retention with no acute pathology within the abdomen or pelvis. Please see above discussion. - Medications Given in the ED: ED Medications Discontinued Medications Generic Name Dose Route Start Last Admin Trade Name Freq PRN Reason Stop Dose Admin Acetaminophen 1,000 mg 07/31/19 05:18 07/31/19 06:46 Ofirmev Injection - IVPB 07/31/19 05:19 1,000 mg ONCE ONE Administration Famotidine/Sodium Chloride 20 mg in 50 mls @ 100 mls/hr 07/31/19 05:18 06:46 Pepcid 20 Mg Premixed Ivpb - IVPB 07/31/19 05:47 100 mls/hr ONCE ONE Administration Sodium Chloride 1,000 mls @ 1,000 mls/hr 07/31/19 05:17 07/31/19 06:46 Normal Saline - IV 07/31/19 06:16 1,000 mls/hr ASDIR STA Administration Morphine Sulfate 2 mg 07/31/19 06:55 07/31/19 07:06 Morphine Injection - IVPUSH 07/31/19 06:56 2 mg ONCE ONE Administration Medical Decision Making - Medical Decision Making Received patient as sign out from night team pending labs, CTAP, and ER disposition 64 year old female with PMH significant for HTN, asthma, and proctocoloitis. - Extremely hard IV access - US guided 20 gauge IV placed by me at bedside. - Patient receiving IVNS, Tylenol, and morphine - Going to CT scan CTAP: The stomach and duodenum are somewhat thick-walled, however, this may be related to underdistention. There is no evidence of pneumoperitoneum, bowel obstruction or intra-abdominal abscess. There is no CT evidence of acute appendicitis or diverticulitis. Re-assessment: Patient still has abdominal pain despite tylenol, GI cocktail, and two rounds of morphine. - Will obtain a lactic acid and then re-asses. - Lactic acid negative. - Patient still complaining of significant abdominal pain which will not subside. - Will admit for intractable abdominal pain. - Gastritis seems to be highest on differential now Disposition: Admit to hospital for intractable abdominal pain and r/o gastritis. Discharge - Discharge Information Problems reviewed: Yes Clinical Impression/Diagnosis: Intractable abdominal pain Abdominal pain Qualifiers: Abdominal location: generalized Qualified Code(s): R10.84 - Generalized abdominal pain Condition: Stable - Admission Yes - Follow up/Referral - Patient Discharge Instructions - Post Discharge Activity
[2019-07-31] MEDS ORDERED: morphine CARPU-JECT 4 MG/1 ML DISP.SYRIN IVPUSH ONE (08:47)
[2019-07-31] MEDS ORDERED: ONDANSETRON 4 MG/2 ML VIAL IVPUSH ONE (08:48)
[2019-07-31] MEDS ORDERED: morphine SULFATE 4 MG/ML VIAL ONE (08:49)
[2019-07-31] MEDS ORDERED: ONDANSETRON 4 MG/2 ML VIAL ONE (08:49)
[2019-07-31] MEDS ORDERED: MAG HYDROX/AL HYDROX/SIMETH 30 ML UNIT-DOSE CUP PO ONE (10:14)
[2019-07-31] MEDS ORDERED: SODIUM CHLORIDE 0.9% 500 ML INFUS.BAG IV ONE (10:14)
[2019-07-31] MEDS ORDERED: MAG HYDROX/AL HYDROX/SIMETH 30 ML UNIT-DOSE CUP ONE (10:53)
[2019-07-31 11:42] LABS: ANISOCYTOSIS 0; MACROCYTOSIS 0; PLATELET ESTIMATE NORMAL
[2019-07-31] MEDS ORDERED: KETOROLAC TROMETHAMINE 30 MG/1 ML VIAL IVPUSH ONE (11:56)
[2019-07-31] MEDS ORDERED: KETOROLAC TROMETHAMINE 30 MG/1 ML VIAL ONE (12:00)
[2019-07-31 12:49] LABS: PH,URINE 6.5 (5.0-8.0); URINE APPEARANCE Clear; URINE BILIRUBIN Negative (NEGATIVE); URINE COLOR Yellow; URINE GLUCOSE (UA) Negative (NEGATIVE); URINE KETONE Trace (NEGATIVE); URINE LEUK ESTERASE Negative (NEGATIVE); URINE NITRITE Negative (NEGATIVE); URINE PROTEIN Negative (NEGATIVE); URINE UROBILINOGEN 0.2 mg/dL (0.2-1.0)
--- NOTE | 2019-07-31 13:32 | HP ---
Admitting History and Physical - Primary Care Physician PCP: Yariel Springer - Admission Chief Complaint: came in for abdominal pain, nausea and retching History of Present Illness: 64 year old female with PMH significant for HTN, asthma, and proctocolitis. She presented to the ER with complaints of diffuse abdominal pain that began 2 days ago. The pain was gradual in onset, and reached an intensity of level of 10/10 last night. She describes it as a dull, squeezing pain, constant in nature, non- radiating, with no recognized aggravating or alleviating factors. The pain is associated with nausea, multiple episodes of vomiting (producing only mucus), and chills. Her last meal was on Sunday, and she has only been taking liquids since then. Her last BM was earlier today, and described as brown and hard. She has had no recent illness, no changes in her medications, and her last colonsocopy was in January, with no abnormalities reported as far as the patient is aware. She was previously admitted in the ER on 05/27/19 with complaints of abdominal pain, and was found to have proctocoloitis on CT AP, and was treated with Cipro/Flagyl. - Past Medical History SIDE FRAMER: Yes: Migraine, Peripheral Neuropathy (mostly left foot from back problems) , Seizure, Syncope Cardiovascular: Yes: CAD (Non-obstructive with myocardial bridge), HTN, Hyperlipdemia Gastrointestinal: Yes: Constipation Musculoskeletal: Yes: Chronic low back pain, Osteoarthritis - Past Surgical History Past Surgical History: Yes: Appendectomy, Colonoscopy (years ago), Joint Replacement (bilateral knees) - Smoking History Smoking history: Never smoked Have you smoked in the past 12 months: No Aproximately how many cigarettes per day: 0 If you are a former smoker, when did you quit?: 2002 - smoked 1ppwk for about 10 yrs - Alcohol/Substance Use Hx Alcohol Use: No History of Substance Use: reports: Marijuana (in past, on occasion, last few months ago (planning to get medical card)) - Social History ADL: Independent History of Recent Travel: No Home Medications - Allergies Allergies/Adverse Reactions: Allergies Allergy/AdvReac Type Severity Reaction Status Date / Time No Known Allergies Allergy Verified 07/31/19 05:24 - Home Medications Home Medications: Ambulatory Orders Gabapentin [Neurontin] 800 mg PO TID 06/14/15 Losartan/Hydrochlorothiazide [Losartan-Hctz 100-25 mg Tablet] 1 each PO DAILY Amlodipine Besylate [Norvasc -] 10 mg PO DAILY #30 tablet 03/27/17 Phenytoin Na Extended [Dilantin -] 100 mg PO TID #0 cap 09/14/17 Zolpidem Tartrate [Ambien] 10 mg PO HS PRN tablet MDD 1 09/14/17 Quetiapine Fumarate [Seroquel -] 200 tab PO HS 12/31/17 cloNIDine HCL [Catapres -] 0.1 mg PO TID 12/31/17 Carisoprodol [Soma (Nf)] 350 mg PO TID 10/14/18 Review of Systems - Review of Systems Gastrointestinal: reports: Abdominal Pain, Bloating Physical Examination Vital Signs: Vital Signs Temperature 97.4 F L 07/31/19 04:30 Pulse Rate 100 H 07/31/19 08:53 Respiratory Rate 18 07/31/19 08:53 Blood Pressure 155/92 07/31/19 08:53 O2 Sat by Pulse Oximetry (%) 98 07/31/19 08:53 Constitutional: Yes: Calm Cardiovascular: Yes: Regular Rate and Rhythm, S1, S2 Respiratory: Yes: CTA Bilaterally Gastrointestinal: Yes: Tenderness Edema: No Neurological: Yes: Alert, Oriented Labs: CBC, BMP 07/31/19 06:24 07/31/19 06:24 Imaging - Results Cat Scan: Report Reviewed (fecal retention) Problem List - Problems (1) Abdominal pain Assessment/Plan: ct scan noted zofran enema miralax gi consult analagesic Code(s): R10.9 - UNSPECIFIED ABDOMINAL PAIN Qualifiers: Abdominal location: generalized Qualified Code(s): R10.84 - Generalized abdominal pain (2) HTN (hypertension) Assessment/Plan: norvasc Code(s): I10 - ESSENTIAL (PRIMARY) HYPERTENSION
[2019-07-31] MEDS ORDERED: ONDANSETRON 4 MG/2 ML VIAL IVPUSH PRN (13:38)
--- NOTE | 2019-07-31 14:35 | EKG ---
Test Reason : Blood Pressure : / mmHG Vent. Rate : 087 BPM Atrial Rate : 087 BPM P-R Int : 146 ms QRS Dur : 078 ms QT Int : 354 ms P-R-T Axes : 051 059 002 degrees QTc Int : 425 ms NORMAL SINUS RHYTHM POSSIBLE LEFT ATRIAL ENLARGEMENT T WAVE ABNORMALITY, CONSIDER LATERAL ISCHEMIA ABNORMAL ECG WHEN COMPARED WITH ECG OF 25-DEC-2018 13:49, CRITERIA FOR ANTERIOR INFARCT ARE NO LONGER PRESENT T WAVE INVERSION NOW EVIDENT IN LATERAL LEADS Confirmed by CARTER LONDON MD ([id number]) on 07/31/2019 2:35:04 PM Referred By: Confirmed By:CARTER LONDON MD
[2019-07-31] MEDS: SODIUM CHLORIDE 1,000 ML IV SCH (15:22)
[2019-07-31] MEDS: PANTOPRAZOLE SODIUM 40 MG VIAL IVPUSH SCH (15:53)
[2019-07-31] MEDS: MORPHINE SULFATE 2 MG/ML VIAL IVPUSH PRN ×2 (15:54→22:12)
[2019-07-31] MEDS ORDERED: PANTOPRAZOLE SODIUM 40 MG in SODIUM CHLORIDE 100 ML IVPB ONE (16:45)
--- NOTE | 2019-07-31 16:45 | CON.GI ---
Consult Consult Specialty:: GI Referred by:: Dr Castillo - History of Present Illness History of Present Illness: 64 y/o F with PMH of gastric ulcer secondary to NSAID use, s/p EGD at [facility] 2 mos ago, s/p colonoscpy 2 mos ago at [facility] was admitted iwith epigastric pain, nausea and vomiting. CT was done which revealed fatty liver and colon retention. 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, Peripheral Neuropathy (mostly left foot from back problems) , Seizure, Syncope Cardio/Vascular: Yes: CAD (Non-obstructive with myocardial bridge), HTN, Hyperlipdemia Gastrointestinal: Yes: Constipation ...: No Musculoskeletal: Yes: Chronic low back pain, Osteoarthritis - Past Surgical History Past Surgical History: Yes: Appendectomy, Colonoscopy (years ago), Joint Replacement (bilateral knees) - Alcohol/Substance Use Hx Alcohol Use: No History of Substance Use: reports: Marijuana (in past, on occasion, last few months ago (planning to get medical card)) - Smoking History Smoking history: Never smoked Have you smoked in the past 12 months: No Aproximately how many cigarettes per day: 0 If you are a former smoker, when did you quit?: 2002 - smoked 1ppwk for about 10 yrs - Social History ADL: Independent History of Recent Travel: No Home Medications - Allergies Allergies/Adverse Reactions: Allergies Allergy/AdvReac Type Severity Reaction Status Date / Time No Known Allergies Allergy Verified 07/31/19 05:24 - Home Medications Home Medications: Ambulatory Orders Gabapentin [Neurontin] 800 mg PO TID 04/11/15 Losartan/Hydrochlorothiazide [Losartan-Hctz 100-25 mg Tablet] 1 each PO DAILY Amlodipine Besylate [Norvasc -] 10 mg PO DAILY #30 tablet 03/27/17 Phenytoin Na Extended [Dilantin -] 100 mg PO TID #0 cap 09/14/17 Zolpidem Tartrate [Ambien] 10 mg PO HS PRN tablet MDD 1 09/14/17 Quetiapine Fumarate [Seroquel -] 200 tab PO HS 12/31/17 cloNIDine HCL [Catapres -] 0.1 mg PO TID 12/31/17 Carisoprodol [Soma (Nf)] 350 mg PO TID 10/14/18 Physical Exam-GI Vital Signs: Vital Signs Temperature 98.4 F 07/31/19 15:19 Pulse Rate 80 07/31/19 15:19 Respiratory Rate 18 07/31/19 15:19 Blood Pressure 164/100 07/31/19 15:19 O2 Sat by Pulse Oximetry (%) 96 07/31/19 15:19 Constitutional: Yes: Well Nourished Eyes: Yes: Conjunctiva Clear HENT: Yes: Atraumatic Neck: Yes: Supple Cardiovascular: Yes: Regular Rate and Rhythm Respiratory: Yes: CTA Bilaterally Gastrointestinal Inspection: Yes: Distention ...Auscultate: Yes: Normoactive Bowel Sounds ...Palpate: Yes: Soft, Tenderness, Epigastium. No: Firm/Rigid, Guarding, Hepatomegaly, Splenomegaly ...Percussion: Yes: Tympanitic Labs: CBC, BMP 07/31/19 06:24 07/31/19 06:24 Problem List - Problems (1) Epigastric abdominal pain Assessment/Plan: R> IV Protonix IV Reglan Code(s): R10.13 - EPIGASTRIC PAIN (2) Fecal impaction Assessment/Plan: R> fleet enema then maitain on Miralax 17 grams bid Code(s): K56.41 - FECAL IMPACTION
[2019-07-31] MEDS ORDERED: SODIUM PHOSPHATE/NA BIPHOS 133 ML ENEMA PR ONE (16:46)
[2019-07-31] MEDS ORDERED: MAGNESIUM CITRATE 300 ML BOTTLE PO ONE (16:46)
[2019-07-31] MEDS: METOCLOPRAMIDE HCL INJECTION 10 MG/2 ML VIAL IVPB SCH (18:20)
[2019-07-31] MEDS ORDERED: ZOLPIDEM TARTRATE 5 MG TABLET PO ONE (21:47)
[2019-07-31] MEDS ORDERED: ZOLPIDEM TARTRATE 5 MG TABLET ONE (22:11)
[2019-07-31] MEDS: POLYETHYLENE GLYCOL 3350 119 GM BTL PO SCH (22:35)
[2019-07-31] MEDS: HEPARIN NA (PORCINE) 5,000 UNITS/ML 1ML VIAL SQ SCH (23:00)
[2019-08-01] MEDS: METOCLOPRAMIDE HCL INJECTION 10 MG/2 ML VIAL IVPB SCH ×3 (01:45→17:12)
[2019-08-01] MEDS: MORPHINE SULFATE 2 MG/ML VIAL IVPUSH PRN ×2 (06:13→13:29)
[2019-08-01] MEDS: SODIUM CHLORIDE 1,000 ML IV SCH ×2 (06:15→21:26)
[2019-08-01 08:32] LABS: HEMATOCRIT 38.2 % (32.4-45.2); MCH 31.9 pg (25.7-33.7); MCHC 34.2 g/dl (32.0-36.0); MEAN CELL VOLUME 93.4 fl (80-96); MEAN PLT VOLUME 10.5 fl (7.5-11.1); PLATELET COUNT 253 K/MM3 (134-434); RBC 4.09 M/mm3 (3.60-5.2); RDW 14.5 % (11.6-15.6); WHITE BLOOD COUNT 6.3 K/mm3 (4.0-10.0)
[2019-08-01 08:51] LABS: INR 1.04 (0.83-1.09); PROTHROMBIN TIME (PATIENT) 12.3 SEC (9.7-13.0)
[2019-08-01 08:54] LABS: ACTIVATED PTT 40.6 SECONDS (25.2-36.5)
[2019-08-01 09:10] LABS: BILIRUBIN,TOTAL 0.6 mg/dL (0.2-1); BLOOD UREA NITROGEN 10.6 mg/dL (7-18); CALCIUM 9.1 mg/dL (8.5-10.1); CREATININE 0.6 mg/dL (0.55-1.3); MAGNESIUM 2.5 mg/dL (1.8-2.4); PHOSPHOROUS 3.4 mg/dL (2.5-4.9); POTASSIUM 3.7 mmol/L (3.5-5.1)
[2019-08-01] MEDS: PANTOPRAZOLE SODIUM 40 MG VIAL IVPUSH SCH (09:40)
[2019-08-01] MEDS: HEPARIN NA (PORCINE) 5,000 UNITS/ML 1ML VIAL SQ SCH ×2 (09:40→21:27)
[2019-08-01] MEDS: amLODIPine BESYLATE 10 MG TABLET (FP) PO SCH (09:40)
[2019-08-01] MEDS: POLYETHYLENE GLYCOL 3350 119 GM BTL PO SCH ×2 (09:46→21:27)
[2019-08-01] MEDS: PHENYTOIN NA EXTENDED 100 MG CAPSULE (FP) PO SCH ×3 (10:11→20:50)
--- NOTE | 2019-08-01 12:48 | PN ---
Progress Note, Physician Chief Complaint: patient seen and examined abdominal pain is much better had BM - Current Medication List Current Medications: Active Medications Amlodipine Besylate (Norvasc -) 10 mg PO DAILY [facility] Last Admin: 08/01/19 09:40 Dose: 10 mg Gabapentin (Neurontin -) 800 mg PO TID [facility] Heparin Sodium (Porcine) (Heparin -) 5,000 unit SQ BID [facility] Last Admin: 08/01/19 09:40 Dose: 5,000 unit Sodium Chloride (Normal Saline -) 1,000 mls @ 75 mls/hr IV ASDIR [facility] Last Admin: 08/01/19 06:15 Dose: 75 mls/hr Metoclopramide HCl (Reglan Injection -) 10 mg IVPB Q8H [facility] Last Admin: 08/01/19 09:44 Dose: 10 mg Morphine Sulfate (Morphine Sulfate) 2 mg IVPUSH Q6H PRN PRN Reason: PAIN LEVEL 7 - 10 Last Admin: 08/01/19 06:13 Dose: 2 mg Ondansetron HCl (Zofran Injection) 4 mg IVPUSH Q6H PRN PRN Reason: NAUSEA AND/OR VOMITING Pantoprazole Sodium (Protonix Iv) 40 mg IVPUSH DAILY [facility] Last Admin: 08/01/19 09:40 Dose: 40 mg Phenytoin Sodium (Dilantin -) 100 mg PO TID [facility] Last Admin: 08/01/19 10:11 Dose: 100 mg Polyethylene Glycol (Miralax (For Daily Use) -) 17 gm PO BID [facility] Last Admin: 08/01/19 09:46 Dose: 17 gm - Objective Vital Signs: Vital Signs Temperature 97.7 F 08/01/19 08:01 Pulse Rate 64 08/01/19 08:01 Respiratory Rate 64 H 08/01/19 08:01 Blood Pressure 140/55 L 08/01/19 08:01 O2 Sat by Pulse Oximetry (%) 97 08/01/19 09:00 Constitutional: Yes: Calm Cardiovascular: Yes: Regular Rate and Rhythm, S1, S2 Respiratory: Yes: CTA Bilaterally Gastrointestinal: Yes: Tenderness Edema: No Neurological: Yes: Alert, Oriented Labs: CBC, BMP 08/01/19 07:53 08/01/19 07:53 INR, PTT INR 1.04 (0.83-1.09) 08/01/19 07:53 Problem List - Problems (1) Abdominal pain Assessment/Plan: ct scan noted iv protonix iv reglan enema given miralax bid gi consult noted analagesic will start clear liquids and see if tolerates leukocytosis resolved Code(s): R10.9 - UNSPECIFIED ABDOMINAL PAIN Qualifiers: Abdominal location: generalized Qualified Code(s): R10.84 - Generalized abdominal pain (2) HTN (hypertension) Assessment/Plan[facility] Code(s): I10 - ESSENTIAL (PRIMARY) HYPERTENSION
[2019-08-01] MEDS: GABAPENTIN 400 MG CAPSULE (FP) PO SCH ×2 (13:26→21:27)
[2019-08-01] MEDS ORDERED: PHENYTOIN NA EXTENDED 100 MG CAPSULE (FP) PO SCH (14:00)
[2019-08-01] MEDS ORDERED: QUEtiapine FUMARATE 200 MG TABLET PO SCH ×2 (22:00)
[2019-08-01] MEDS: QUEtiapine FUMARATE 100 MG TABLET (FP) PO SCH (22:50)
[2019-08-01] MEDS: ZOLPIDEM TARTRATE 5 MG TABLET PO PRN (22:50)
[2019-08-02] MEDS: METOCLOPRAMIDE HCL INJECTION 10 MG/2 ML VIAL IVPB SCH ×3 (01:21→17:13)
[2019-08-02] MEDS: PHENYTOIN NA EXTENDED 100 MG CAPSULE (FP) PO SCH ×3 (05:39→20:10)
[2019-08-02] MEDS: GABAPENTIN 400 MG CAPSULE (FP) PO SCH ×3 (05:39→21:45)
[2019-08-02] MEDS: MORPHINE SULFATE 2 MG/ML VIAL IVPUSH PRN ×2 (08:46→19:42)
--- NOTE | 2019-08-02 08:58 | PN ---
Progress Note, Physician Chief Complaint: Constipation History of Present Illness: NAD in bed abdominal pain improved but not resolved Self ambulatory Having BM's frequently - Current Medication List Current Medications: Active Medications Amlodipine Besylate (Norvasc -) 10 mg PO DAILY [facility] Last Admin: 08/01/19 09:40 Dose: 10 mg Gabapentin (Neurontin -) 800 mg PO TID [facility] Last Admin: 08/02/19 05:39 Dose: 800 mg Heparin Sodium (Porcine) (Heparin -) 5,000 unit SQ BID [facility] Last Admin: 08/01/19 21:27 Dose: 5,000 unit Sodium Chloride (Normal Saline -) 1,000 mls @ 75 mls/hr IV ASDIR [facility] Last Admin: 08/01/19 21:26 Dose: 75 mls/hr Losartan Potassium (Cozaar -) 100 mg PO DAILY [facility] Metoclopramide HCl (Reglan Injection -) 10 mg IVPB Q8H [facility] Last Admin: 08/02/19 08:47 Dose: 10 mg Morphine Sulfate (Morphine Sulfate) 2 mg IVPUSH Q6H PRN PRN Reason: PAIN LEVEL 7 - 10 Last Admin: 08/02/19 08:46 Dose: 2 mg Ondansetron HCl (Zofran Injection) 4 mg IVPUSH Q6H PRN PRN Reason: NAUSEA AND/OR VOMITING Pantoprazole Sodium (Protonix Iv) 40 mg IVPUSH DAILY [facility] Last Admin: 08/01/19 09:40 Dose: 40 mg Phenytoin Sodium (Dilantin -) 100 mg PO TID@0600,1400,2000 [facility] Last Admin: 08/02/19 05:39 Dose: 100 mg Polyethylene Glycol (Miralax (For Daily Use) -) 17 gm PO BID [facility] Last Admin: 08/01/19 21:27 Dose: 17 gm Quetiapine Fumarate (Seroquel -) 200 mg PO HS [facility] Last Admin: 08/01/19 22:50 Dose: 200 mg Zolpidem Tartrate (Ambien -) 5 mg PO HS PRN PRN Reason: INSOMNIA Last Admin: 08/01/19 22:50 Dose: 5 mg - Objective Vital Signs: Vital Signs Temperature 97.8 F 08/02/19 05:00 Pulse Rate 90 08/02/19 05:00 Respiratory Rate 20 08/01/19 23:45 Blood Pressure 113/68 08/02/19 05:00 O2 Sat by Pulse Oximetry (%) 97 08/01/19 22:00 Constitutional: Yes: Well Nourished, No Distress Cardiovascular: Yes: Regular Rate and Rhythm Respiratory: Yes: Regular Gastrointestinal: Yes: Normal Bowel Sounds, Soft, Tenderness (RLQ,LLQ,LUQ) Genitourinary: Yes: WNL Musculoskeletal: Yes: WNL Extremities: Yes: WNL Edema: No Peripheral Pulses WNL: Yes Neurological: Yes: Alert, Oriented Psychiatric: Yes: Alert, Oriented Labs: CBC, BMP 08/01/19 07:53 08/01/19 07:53 INR, PTT INR 1.04 (0.83-1.09) 08/01/19 07:53 Assessment/Plan (1) Abdominal pain Assessment/Plan: -CT scan reviewed-showed stool retention -PPI PO -Reglan PRN -miralax bid -GI consult -Pain management -Tolerating clear liquids -Encouraged ambulation -KUB today Code(s): R10.9 - UNSPECIFIED ABDOMINAL PAIN Qualifiers: Abdominal location: generalized Qualified Code(s): R10.84 - Generalized abdominal pain (2) HTN (hypertension) Assessment/Plan: -[facility] Code(s): I10 - ESSENTIAL (PRIMARY) HYPERTENSION
[2019-08-02] MEDS: PANTOPRAZOLE SODIUM 40 MG VIAL IVPUSH SCH (09:34)
[2019-08-02] MEDS: amLODIPine BESYLATE 10 MG TABLET (FP) PO SCH (09:34)
[2019-08-02] MEDS: POLYETHYLENE GLYCOL 3350 119 GM BTL PO SCH ×2 (09:34→21:46)
[2019-08-02] MEDS: LOSARTAN POTASSIUM 50 MG TABLET (FP) PO SCH (09:34)
[2019-08-02] MEDS: HEPARIN NA (PORCINE) 5,000 UNITS/ML 1ML VIAL SQ SCH ×2 (09:34→21:45)
[2019-08-02 09:54] LABS: ALBUMIN 3.6 g/dl (3.4-5.0); BILIRUBIN,TOTAL 0.4 mg/dL (0.2-1); BLOOD UREA NITROGEN 8.2 mg/dL (7-18); CALCIUM 8.8 mg/dL (8.5-10.1); CREATININE 0.8 mg/dL (0.55-1.3); POTASSIUM 3.6 mmol/L (3.5-5.1); TOT PROT 6.5 g/dl (6.4-8.2)
[2019-08-02] MEDS: SODIUM CHLORIDE 1,000 ML IV SCH (17:14)
[2019-08-02] MEDS ORDERED: QUEtiapine FUMARATE 50 MG TABLET ONE (21:43)
[2019-08-02] MEDS: ZOLPIDEM TARTRATE 5 MG TABLET PO PRN (21:45)
[2019-08-02] MEDS: QUEtiapine FUMARATE 100 MG TABLET (FP) PO SCH (21:45)
[2019-08-03] MEDS: METOCLOPRAMIDE HCL INJECTION 10 MG/2 ML VIAL IVPB SCH ×3 (00:50→16:38)
[2019-08-03] MEDS: PHENYTOIN NA EXTENDED 100 MG CAPSULE (FP) PO SCH ×3 (06:00→20:27)
[2019-08-03] MEDS: GABAPENTIN 400 MG CAPSULE (FP) PO SCH ×3 (06:00→21:28)
[2019-08-03] MEDS: amLODIPine BESYLATE 10 MG TABLET (FP) PO SCH (09:46)
[2019-08-03] MEDS: PANTOPRAZOLE 40 MG TABLET (FP) PO SCH (09:46)
[2019-08-03] MEDS: LOSARTAN POTASSIUM 50 MG TABLET (FP) PO SCH (09:46)
[2019-08-03] MEDS: HEPARIN NA (PORCINE) 5,000 UNITS/ML 1ML VIAL SQ SCH ×2 (09:47→21:27)
[2019-08-03] MEDS: MORPHINE SULFATE 2 MG/ML VIAL IVPUSH PRN ×2 (09:47→16:39)
[2019-08-03] MEDS: POLYETHYLENE GLYCOL 3350 119 GM BTL PO SCH ×2 (09:47→21:28)
--- NOTE | 2019-08-03 11:57 | PN ---
Progress Note, Physician Chief Complaint: Constipation History of Present Illness: NAD in bed abdominal pain improved but not resolved Self ambulatory Having BM's frequently - Current Medication List Current Medications: Active Medications Amlodipine Besylate (Norvasc -) 10 mg PO DAILY [facility] Last Admin: 08/03/19 09:46 Dose: 10 mg Gabapentin (Neurontin -) 800 mg PO TID [facility] Last Admin: 08/03/19 06:00 Dose: 800 mg Heparin Sodium (Porcine) (Heparin -) 5,000 unit SQ BID [facility] Last Admin: 08/03/19 09:47 Dose: 5,000 unit Sodium Chloride (Normal Saline -) 1,000 mls @ 75 mls/hr IV ASDIR [facility] Last Admin: 08/02/19 17:14 Dose: 75 mls/hr Losartan Potassium (Cozaar -) 100 mg PO DAILY [facility] Last Admin: 08/03/19 09:46 Dose: 100 mg Metoclopramide HCl (Reglan Injection -) 10 mg IVPB Q8H [facility] Last Admin: 08/03/19 09:46 Dose: 10 mg Morphine Sulfate (Morphine Sulfate) 2 mg IVPUSH Q6H PRN PRN Reason: PAIN LEVEL 7 - 10 Last Admin: 08/03/19 09:47 Dose: 2 mg Ondansetron HCl (Zofran Injection) 4 mg IVPUSH Q6H PRN PRN Reason: NAUSEA AND/OR VOMITING Pantoprazole Sodium (Protonix -) 40 mg PO DAILY [facility] Last Admin: 08/03/19 09:46 Dose: 40 mg Phenytoin Sodium (Dilantin -) 100 mg PO TID@0600,1400,2000 [facility] Last Admin: 08/03/19 06:00 Dose: 100 mg Polyethylene Glycol (Miralax (For Daily Use) -) 17 gm PO BID [facility] Last Admin: 08/03/19 09:47 Dose: Not Given Quetiapine Fumarate (Seroquel -) 200 mg PO HS [facility] Last Admin: 08/02/19 21:45 Dose: 200 mg Zolpidem Tartrate (Ambien -) 5 mg PO HS PRN PRN Reason: INSOMNIA Last Admin: 08/02/19 21:45 Dose: 5 mg - Objective Vital Signs: Vital Signs Temperature 98.0 F 08/03/19 02:00 Pulse Rate 77 08/03/19 02:00 Respiratory Rate 20 08/02/19 21:00 Blood Pressure 132/80 08/03/19 02:00 O2 Sat by Pulse Oximetry (%) 95 08/02/19 21:00 Constitutional: Yes: Well Nourished, No Distress, Calm Cardiovascular: Yes: Regular Rate and Rhythm Respiratory: Yes: Regular Gastrointestinal: Yes: Normal Bowel Sounds, Soft, Tenderness ([id number]) Genitourinary: Yes: WNL Musculoskeletal: Yes: WNL Extremities: Yes: WNL Edema: No Peripheral Pulses WNL: Yes Neurological: Yes: Alert, Oriented Psychiatric: Yes: Alert, Oriented Labs: CBC, BMP 08/01/19 07:53 08/02/19 08:35 INR, PTT INR 1.04 (0.83-1.09) 08/01/19 07:53 Assessment/Plan (1) Abdominal pain Assessment/Plan: -CT scan reviewed-showed stool retention -PPI PO -Reglan PRN -miralax bid -GI consult -Pain management -Tolerating clear liquids -Encouraged ambulation -KUB showed improvement in stool retention Code(s): R10.9 - UNSPECIFIED ABDOMINAL PAIN Qualifiers: Abdominal location: generalized Qualified Code(s): R10.84 - Generalized abdominal pain (2) HTN (hypertension) Assessment/Plan: -[facility] Code(s): I10 - ESSENTIAL (PRIMARY) HYPERTENSION
[2019-08-03] MEDS ORDERED: QUEtiapine FUMARATE 50 MG TABLET ONE (21:11)
[2019-08-03] MEDS: QUEtiapine FUMARATE 100 MG TABLET (FP) PO SCH (21:28)
[2019-08-03] MEDS: ZOLPIDEM TARTRATE 5 MG TABLET PO PRN (21:28)
[2019-08-04] MEDS: METOCLOPRAMIDE HCL INJECTION 10 MG/2 ML VIAL IVPB SCH ×3 (00:50→17:17)
[2019-08-04] MEDS: MORPHINE SULFATE 2 MG/ML VIAL IVPUSH PRN ×3 (04:48→18:04)
[2019-08-04] MEDS: PHENYTOIN NA EXTENDED 100 MG CAPSULE (FP) PO SCH ×3 (06:15→21:11)
[2019-08-04] MEDS: GABAPENTIN 400 MG CAPSULE (FP) PO SCH ×3 (06:15→21:12)
[2019-08-04] MEDS: amLODIPine BESYLATE 10 MG TABLET (FP) PO SCH (09:57)
[2019-08-04] MEDS: PANTOPRAZOLE 40 MG TABLET (FP) PO SCH (09:57)
[2019-08-04] MEDS: POLYETHYLENE GLYCOL 3350 119 GM BTL PO SCH ×2 (09:57→21:11)
[2019-08-04] MEDS: LOSARTAN POTASSIUM 50 MG TABLET (FP) PO SCH (09:57)
[2019-08-04] MEDS: HEPARIN NA (PORCINE) 5,000 UNITS/ML 1ML VIAL SQ SCH ×2 (10:03→21:13)
--- NOTE | 2019-08-04 12:40 | PN ---
Progress Note, Physician Chief Complaint: Abdominal Pain History of Present Illness: Previous notes and events reviewed awake and alert NAD complain of abdominal pain complain of palpitations~EKG STAT denies SOB or chest pain - Current Medication List Current Medications: Active Medications Amlodipine Besylate (Norvasc -) 10 mg PO DAILY [facility] Last Admin: 08/04/19 09:57 Dose: 10 mg Gabapentin (Neurontin -) 800 mg PO TID [facility] Last Admin: 08/04/19 06:15 Dose: 800 mg Heparin Sodium (Porcine) (Heparin -) 5,000 unit SQ BID [facility] Last Admin: 08/04/19 10:03 Dose: 5,000 unit Losartan Potassium (Cozaar -) 100 mg PO DAILY [facility] Last Admin: 08/04/19 09:57 Dose: 100 mg Metoclopramide HCl (Reglan Injection -) 10 mg IVPB Q8H [facility] Last Admin: 08/04/19 10:04 Dose: 10 mg Morphine Sulfate (Morphine Sulfate) 2 mg IVPUSH Q6H PRN PRN Reason: PAIN LEVEL 7 - 10 Last Admin: 08/04/19 11:49 Dose: 2 mg Ondansetron HCl (Zofran Injection) 4 mg IVPUSH Q6H PRN PRN Reason: NAUSEA AND/OR VOMITING Pantoprazole Sodium (Protonix -) 40 mg PO DAILY [facility] Last Admin: 08/04/19 09:57 Dose: 40 mg Phenytoin Sodium (Dilantin -) 100 mg PO TID@0600,1400,2000 [facility] Last Admin: 08/04/19 06:15 Dose: 100 mg Polyethylene Glycol (Miralax (For Daily Use) -) 17 gm PO BID [facility] Last Admin: 08/04/19 09:57 Dose: 17 gm Quetiapine Fumarate (Seroquel -) 200 mg PO HS [facility] Last Admin: 08/03/19 21:28 Dose: 200 mg Zolpidem Tartrate (Ambien -) 5 mg PO HS PRN PRN Reason: INSOMNIA Last Admin: 08/03/19 21:28 Dose: 5 mg - Objective Vital Signs: Vital Signs Temperature 98.2 F 08/04/19 09:00 Pulse Rate 87 08/04/19 10:49 Respiratory Rate 20 08/04/19 10:49 Blood Pressure 147/89 08/04/19 10:49 O2 Sat by Pulse Oximetry (%) 95 08/04/19 09:00 Constitutional: Yes: No Distress, Calm Eyes: Yes: Conjunctiva Clear HENT: Yes: Atraumatic Cardiovascular: Yes: Regular Rate and Rhythm Respiratory: Yes: Regular, CTA Bilaterally Gastrointestinal: Yes: Normal Bowel Sounds, Soft Musculoskeletal: Yes: WNL Extremities: Yes: WNL Edema: No Neurological: Yes: Alert, Oriented Psychiatric: Yes: Alert, Oriented Labs: CBC, BMP 08/01/19 07:53 08/02/19 08:35 INR, PTT INR 1.04 (0.83-1.09) 08/01/19 07:53 Problem List - Problems (1) Abdominal pain Assessment/Plan: -GI on board Code(s): R10.9 - UNSPECIFIED ABDOMINAL PAIN Qualifiers: Abdominal location: generalized Qualified Code(s): R10.84 - Generalized abdominal pain (2) Fecal impaction Assessment/Plan: -Miralax BID -Simethicone PRN Code(s): K56.41 - FECAL IMPACTION (3) HTN (hypertension) Assessment/Plan: -Amlodipine, Clonidine, Losartan -low Na diet Code(s): I10 - ESSENTIAL (PRIMARY) HYPERTENSION (4) Seizure disorder Assessment/Plan: -Dilantin, Gabapentin -seizure precautions Code(s): G40.909 - EPILEPSY, UNSP, NOT INTRACTABLE, WITHOUT STATUS EPILEPTICUS Assessment/Plan see problem list dvt ppx
[2019-08-04] MEDS ORDERED: SIMETHICONE 80 MG TAB.CHEW (FP) PO PRN (13:41)
--- NOTE | 2019-08-04 13:45 | PN ---
Progress Note (short form) - Note Progress Note: GI f/u Patient seen and examined Labs reviewed Copious bm over the weekend Abdomen feels bloated Pt is hungry +flatus and bm Vital Signs Temp 98.2 F 08/04/19 09:00 Pulse 87 08/04/19 10:49 Resp 20 08/04/19 10:49 BP 147/89 08/04/19 10:49 Pulse Ox 95 08/04/19 09:00 NAD soft, +tympany, ttp b/l LQ without guarding CBC, BMP 08/01/19 07:53 08/02/19 08:35 Impression: pseudo-obstruction, improving Continue qd PPI Continue Miralax 17g BID Add simethicone for bloating PRN Advance diet to regular Encouraged ambulation
--- NOTE | 2019-08-04 16:11 | EKG ---
Test Reason : Blood Pressure : / mmHG Vent. Rate : 082 BPM Atrial Rate : 082 BPM P-R Int : 152 ms QRS Dur : 088 ms QT Int : 396 ms P-R-T Axes : 040 037 004 degrees QTc Int : 462 ms SINUS RHYTHM WITH OCCASIONAL PREMATURE VENTRICULAR COMPLEXES POSSIBLE LEFT ATRIAL ENLARGEMENT POSSIBLE ANTERIOR INFARCT , AGE UNDETERMINED ABNORMAL ECG WHEN COMPARED WITH ECG OF 31-JUL-2019 06:49, PREMATURE VENTRICULAR COMPLEXES ARE NOW PRESENT T WAVE VARIATION Confirmed by NELSON SKINNER, JILLIAN ([id number]) on 08/04/2019 4:11:50 PM Referred By: KATHYA SARABIA,CRLOS Confirmed By:JILLIAN DAMON MD
--- NOTE | 2019-08-04 16:16 | CON.CARD ---
Consult Consult Specialty:: Cardiology Referred by:: Medicine Reason for Consultation:: palpitations - History of Present Illness Chief Complaint: abd pain, palpitations History of Present Illness: 64F h/o HTN, asthma, colitis p/w abd pain last week. Has been undergoing GI workup, pain improving, diagnosed with pseudoobstruction and advancing diet. Today complained of palpitations. No chest pain, dizziness, dyspnea. Feels skipped beats that are strong. Also notes high BPs here, at home she takes clonidine has not been getting here. Abd pain improving. 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, Peripheral Neuropathy (mostly left foot from back problems) , Seizure, Syncope Cardio/Vascular: Yes: CAD (Non-obstructive with myocardial bridge), HTN, Hyperlipdemia Gastrointestinal: Yes: Constipation ...: No Musculoskeletal: Yes: Chronic low back pain, Osteoarthritis - Past Surgical History Past Surgical History: Yes: Appendectomy, Colonoscopy (years ago), Joint Replacement (bilateral knees) - Alcohol/Substance Use Hx Alcohol Use: No History of Substance Use: reports: Marijuana (in past, on occasion, last few months ago (planning to get medical card)) - Smoking History Smoking history: Never smoked Have you smoked in the past 12 months: No Aproximately how many cigarettes per day: 0 If you are a former smoker, when did you quit?: 2002 - smoked 1ppwk for about 10 yrs - Social History ADL: Independent History of Recent Travel: No Home Medications - Allergies Allergies/Adverse Reactions: Allergies Allergy/AdvReac Type Severity Reaction Status Date / Time No Known Allergies Allergy Verified 07/31/19 05:24 - Home Medications Home Medications: Ambulatory Orders Gabapentin [Neurontin] 800 mg PO TID 04/11/15 Losartan/Hydrochlorothiazide [Losartan-Hctz 100-25 mg Tablet] 1 each PO DAILY Amlodipine Besylate [Norvasc -] 10 mg PO DAILY #30 tablet 03/27/17 Phenytoin Na Extended [Dilantin -] 100 mg PO TID #0 cap 09/14/17 Zolpidem Tartrate [Ambien] 10 mg PO HS PRN tablet MDD 1 09/14/17 Quetiapine Fumarate [Seroquel -] 200 tab PO HS 12/31/17 cloNIDine HCL [Catapres -] 0.1 mg PO TID 12/31/17 Carisoprodol [Soma (Nf)] 350 mg PO TID 10/14/18 Family Medical History Family History: Unremarkable Review of Systems - Review of Systems Constitutional: reports: No Symptoms Eyes: reports: No Symptoms HENT: reports: No Symptoms Neck: reports: No Symptoms Cardiovascular: reports: No Symptoms Respiratory: reports: No Symptoms Gastrointestinal: reports: No Symptoms Genitourinary: reports: No Symptoms Musculoskeletal: reports: No Symptoms Integumentary: reports: No Symptoms Neurological: reports: No Symptoms Endocrine: reports: No Symptoms Hematology/Lymphatic: reports: No Symptoms Psychiatric: reports: No Symptoms Vital Signs: Vital Signs Temperature 98.2 F 08/04/19 13:57 Pulse Rate 102 H 08/04/19 13:57 Respiratory Rate 20 08/04/19 13:57 Blood Pressure 133/88 08/04/19 13:57 O2 Sat by Pulse Oximetry (%) 95 08/04/19 09:00 Constitutional: Yes: No Distress, Calm Eyes: Yes: Conjunctiva Clear, EOM Intact HENT: Yes: Atraumatic, Normocephalic Neck: Yes: Supple, Trachea Midline Respiratory: Yes: Regular, CTA Bilaterally Gastrointestinal: Yes: Normal Bowel Sounds, Soft Cardiovascular: Yes: Regular Rate and Rhythm JVD: No Heart Sounds: Yes: S1, S2 Extremities: No: Cold Edema: No Integumentary: No: Jaundice Neurological: Yes: Alert, Oriented Psychiatric: No: Agitated - Other Data Labs, Other Data: CBC, BMP 08/01/19 07:53 08/02/19 08:35 INR, PTT INR 1.04 (0.83-1.09) 08/01/19 07:53 Assessment/Plan echo 2018 nl LV/RV function EKG: sinus, PVCs abd pain - manage per primary, GI Palpitations - PVCs noted on EKG - check echo - replete lytes for K>4, Mg >2 HTN - restart clonidine - cont amlodipine, losartan- HCTZ
[2019-08-04] MEDS ORDERED: QUEtiapine FUMARATE 50 MG TABLET ONE ×2 (20:00→20:02)
[2019-08-04] MEDS: QUEtiapine FUMARATE 100 MG TABLET (FP) PO SCH (21:12)
[2019-08-04] MEDS: cloNIDine HCL 0.1 MG TABLET PO SCH (21:13)
[2019-08-04] MEDS: ZOLPIDEM TARTRATE 5 MG TABLET PO PRN (22:10)
[2019-08-05] MEDS: METOCLOPRAMIDE HCL INJECTION 10 MG/2 ML VIAL IVPB SCH ×2 (01:15→10:15)
[2019-08-05] MEDS: cloNIDine HCL 0.1 MG TABLET PO SCH ×3 (05:56→21:54)
[2019-08-05] MEDS: GABAPENTIN 400 MG CAPSULE (FP) PO SCH ×3 (05:56→21:55)
[2019-08-05] MEDS: PHENYTOIN NA EXTENDED 100 MG CAPSULE (FP) PO SCH ×3 (05:56→21:54)
[2019-08-05] MEDS: MORPHINE SULFATE 2 MG/ML VIAL IVPUSH PRN ×2 (06:38→14:24)
[2019-08-05 08:18] LABS: HEMATOCRIT 37.1 % (32.4-45.2); HEMOGLOBIN 12.4 GM/dL (10.7-15.3); MCH 31.8 pg (25.7-33.7); MCHC 33.4 g/dl (32.0-36.0); MEAN CELL VOLUME 95.2 fl (80-96); MEAN PLT VOLUME 10.6 fl (7.5-11.1); PLATELET COUNT 156 K/MM3 (134-434); RDW 14.4 % (11.6-15.6); WHITE BLOOD COUNT 5.3 K/mm3 (4.0-10.0)
[2019-08-05 08:57] LABS: ALBUMIN 3.5 g/dl (3.4-5.0); BILIRUBIN,TOTAL 0.3 mg/dL (0.2-1); BLOOD UREA NITROGEN 12.6 mg/dL (7-18); CALCIUM 8.8 mg/dL (8.5-10.1); CREATININE 0.6 mg/dL (0.55-1.3); POTASSIUM 3.4 mmol/L (3.5-5.1); TOT PROT 6.4 g/dl (6.4-8.2)
[2019-08-05] MEDS: LOSARTAN POTASSIUM 50 MG TABLET (FP) PO SCH (10:15)
[2019-08-05] MEDS: amLODIPine BESYLATE 10 MG TABLET (FP) PO SCH (10:15)
[2019-08-05] MEDS: POLYETHYLENE GLYCOL 3350 119 GM BTL PO SCH ×2 (10:15→21:55)
[2019-08-05] MEDS: PANTOPRAZOLE 40 MG TABLET (FP) PO SCH (10:15)
[2019-08-05] MEDS: HEPARIN NA (PORCINE) 5,000 UNITS/ML 1ML VIAL SQ SCH ×2 (10:15→21:54)
--- NOTE | 2019-08-05 12:45 | ECHO ---
Version: 1 Name: TAIWO BANGURA Exam: Adult Echocardiogram Study Date: 08/05/2019, 9:13 AM Age: 64 Years MMode/2D Measurements & Calculations IVSd: 1.08 cm LVIDs: 2.7 cm LVIDd: 3.9 cm LVPWd: 0.96 cm LVOT diam: 2.02 cm Ao root diam: 2.38 cm LA dimension: 2.7 cm Doppler Measurements & Calculations MV E max dank: 65.8 cm/sec Med E/e': 11.7 MV A max dank: 83.4 cm/sec Med Peak E' Dank: 5.6 cm/sec MV E/A: 0.79 Lat E/e': 10.1 Lat Peak E' Dank: 6.5 cm/sec Ao max P.3 mmHg Ao V2 max: 144.4 cm/sec TR max dank: 191.5 cm/sec TR max P.7 mmHg Left Ventricle The left ventricular size, thickness and function are normal. Ejection Fraction = 65-70%.. The trans mitral spectral Doppler flow pattern is suggestive of impaired LV relaxation. Right Ventricle The right ventricle is normal in size and function. Atria Normal left and right atrial size and function. Mitral Valve The mitral valve is normal in structure and function. There is trace mitral regurgitation. Tricuspid Valve The tricuspid valve is normal in structure and function. Right ventricular systolic pressure is norm al. Aortic Valve There is mild aortic valve thickening. No hemodynamically significant valvular aortic stenosis. Summary Statements The left ventricular size, thickness and function are normal. Ejection Fraction = 65-70%. The right ventricle is normal in size and function. Normal left and right atrial size and function. The mitral valve is normal in structure and function. There is mild aortic valve thickening. No hemodynamically significant valvular aortic stenosis. MD Debbie Carolina08/05/2019, 11:45 AM Ordering Physician: ALYSA ALVARADO Referring Physician: LUCIAN MONTES Performed By: Catalina Toribio
--- NOTE | 2019-08-05 14:02 | PN ---
Progress Note, Physician Chief Complaint: pseudo obstx GI following Denies CP, SOB, palps - Current Medication List Current Medications: Active Medications Amlodipine Besylate (Norvasc -) 10 mg PO DAILY [facility] Last Admin: 08/05/19 10:15 Dose: 10 mg Clonidine (Catapres -) 0.1 mg PO TID [facility] Last Admin: 08/05/19 05:56 Dose: 0.1 mg Gabapentin (Neurontin -) 800 mg PO TID [facility] Last Admin: 08/05/19 05:56 Dose: 800 mg Heparin Sodium (Porcine) (Heparin -) 5,000 unit SQ BID [facility] Last Admin: 08/05/19 10:15 Dose: 5,000 unit Losartan Potassium (Cozaar -) 100 mg PO DAILY [facility] Last Admin: 08/05/19 10:15 Dose: 100 mg Metoclopramide HCl (Reglan Injection -) 10 mg IVPB Q8H [facility] Last Admin: 08/05/19 10:15 Dose: 10 mg Morphine Sulfate (Morphine Sulfate) 2 mg IVPUSH Q6H PRN PRN Reason: PAIN LEVEL 7 - 10 Last Admin: 08/05/19 06:38 Dose: 2 mg Ondansetron HCl (Zofran Injection) 4 mg IVPUSH Q6H PRN PRN Reason: NAUSEA AND/OR VOMITING Pantoprazole Sodium (Protonix -) 40 mg PO DAILY [facility] Last Admin: 08/05/19 10:15 Dose: 40 mg Phenytoin Sodium (Dilantin -) 100 mg PO TID@0600,1400,2000 [facility] Last Admin: 08/05/19 05:56 Dose: 100 mg Polyethylene Glycol (Miralax (For Daily Use) -) 17 gm PO BID [facility] Last Admin: 08/05/19 10:15 Dose: 17 gm Quetiapine Fumarate (Seroquel -) 200 mg PO HS [facility] Last Admin: 08/04/19 21:12 Dose: 200 mg Simethicone (Mylicon -) 80 mg PO QID PRN PRN Reason: GAS Last Admin: 08/05/19 12:45 Dose: 80 mg Zolpidem Tartrate (Ambien -) 5 mg PO HS PRN PRN Reason: INSOMNIA Last Admin: 08/04/19 22:10 Dose: 5 mg - Objective Vital Signs: Vital Signs Temperature 98.4 F 08/05/19 10:00 Pulse Rate 81 08/05/19 10:00 Respiratory Rate 20 08/05/19 10:00 Blood Pressure 102/73 08/05/19 10:00 O2 Sat by Pulse Oximetry (%) 95 08/05/19 09:00 Constitutional: Yes: Calm Cardiovascular: Yes: Regular Rate and Rhythm Respiratory: Yes: CTA Bilaterally Gastrointestinal: Yes: Soft (no rebound or guarding) Edema: No Neurological: Yes: Alert, Oriented ...Motor Strength: WNL Psychiatric: Yes: WNL Labs: CBC, BMP 08/05/19 07:33 08/05/19 07:33 INR, PTT INR 1.04 (0.83-1.09) 08/01/19 07:53 Assessment/Plan Assessment/Plan echo repeated 08/04: Normal LVEF, mild AVS EKG: sinus, PVCs abd pain - manage per primary, GI Palpitations - PVCs noted on EKG - Echo normal LVEF. - replete lytes for K>4, Mg >2 HTN - restarted clonidine, BP trend improved. - cont amlodipine, losartan- HCTZ
[2019-08-05] MEDS ORDERED: POTASSIUM CHLORIDE TABS 20 MEQ TABLET.ER (FP) PO ONE (14:30)
--- NOTE | 2019-08-05 14:39 | PN.GI ---
GI Progress Note Subjective: Having BM's No acute events - Objective Vital Signs: Vital Signs Temperature 98.4 F 08/05/19 10:00 Pulse Rate 81 08/05/19 10:00 Respiratory Rate 20 08/05/19 10:00 Blood Pressure 102/73 08/05/19 10:00 O2 Sat by Pulse Oximetry (%) 95 08/05/19 09:00 Constitutional: Calm Eyes: No: Sclera Icterus Cardiovascular: Yes: Regular Rate and Rhythm. No: Murmur Respiratory: Yes: CTA Bilaterally Gastrointestinal Inspection: No: Distention ...Auscultate: Yes: Normoactive Bowel Sounds ...Palpate: Yes: Soft. No: Hepatomegaly, Splenomegaly, Tenderness Edema: No (No LE edema) Neurological: Yes: Alert Labs: CBC, BMP 08/05/19 07:33 08/05/19 07:33 INR, PTT INR 1.04 (0.83-1.09) 08/01/19 07:53 Problem List - Problems (1) Abdominal pain Assessment/Plan: Pain improved. States that from recent work-up at [facility] (EGD/Colonoscopy) she was told of an ulcer. She plans on following up with GI at the GI clinic at [facility] upon discharge. Protonix 20mg once daily MiraLAX 17g BID Avoid opiate analgesia Code(s): R10.9 - UNSPECIFIED ABDOMINAL PAIN Qualifiers: Abdominal location: generalized Qualified Code(s): R10.84 - Generalized abdominal pain
--- NOTE | 2019-08-05 14:44 | PN ---
Progress Note, Physician Chief Complaint: Abdominal Pain History of Present Illness: Previous notes and events reviewed awake and alert NAD complain of R sided abdominal pain denies chest pain or SOB (+)BM - Current Medication List Current Medications: Active Medications Amlodipine Besylate (Norvasc -) 10 mg PO DAILY [facility] Last Admin: 08/05/19 10:15 Dose: 10 mg Clonidine (Catapres -) 0.1 mg PO TID [facility] Last Admin: 08/05/19 14:05 Dose: 0.1 mg Gabapentin (Neurontin -) 800 mg PO TID [facility] Last Admin: 08/05/19 14:05 Dose: 800 mg Heparin Sodium (Porcine) (Heparin -) 5,000 unit SQ BID [facility] Last Admin: 08/05/19 10:15 Dose: 5,000 unit Losartan Potassium (Cozaar -) 100 mg PO DAILY [facility] Last Admin: 08/05/19 10:15 Dose: 100 mg Metoclopramide HCl (Reglan -) 10 mg PO TIDAC [facility] Pantoprazole Sodium (Protonix -) 40 mg PO DAILY [facility] Last Admin: 08/05/19 10:15 Dose: 40 mg Phenytoin Sodium (Dilantin -) 100 mg PO TID@0600,1400,2000 [facility] Last Admin: 08/05/19 14:05 Dose: 100 mg Polyethylene Glycol (Miralax (For Daily Use) -) 17 gm PO BID [facility] Last Admin: 08/05/19 10:15 Dose: 17 gm Quetiapine Fumarate (Seroquel -) 200 mg PO HS [facility] Last Admin: 08/04/19 21:12 Dose: 200 mg Simethicone (Mylicon -) 80 mg PO QID PRN PRN Reason: GAS Last Admin: 08/05/19 12:45 Dose: 80 mg Tramadol HCl (Ultram -) 50 mg PO Q8H PRN PRN Reason: PAIN LEVEL 6-10 Zolpidem Tartrate (Ambien -) 5 mg PO HS PRN PRN Reason: INSOMNIA Last Admin: 08/04/19 22:10 Dose: 5 mg - Objective Vital Signs: Vital Signs Temperature 98.4 F 08/05/19 10:00 Pulse Rate 81 08/05/19 10:00 Respiratory Rate 20 08/05/19 10:00 Blood Pressure 102/73 08/05/19 10:00 O2 Sat by Pulse Oximetry (%) 95 08/05/19 09:00 Constitutional: Yes: No Distress, Calm Eyes: Yes: Conjunctiva Clear HENT: Yes: Atraumatic Cardiovascular: Yes: Regular Rate and Rhythm Respiratory: Yes: Regular, CTA Bilaterally Gastrointestinal: Yes: Normal Bowel Sounds, Soft, Tenderness (r sided abdomen) Musculoskeletal: Yes: WNL Extremities: Yes: WNL Edema: No Neurological: Yes: Alert, Oriented Psychiatric: Yes: Alert, Oriented Labs: CBC, BMP 08/05/19 07:33 08/05/19 07:33 INR, PTT INR 1.04 (0.83-1.09) 08/01/19 07:53 Problem List - Problems (1) Abdominal pain Assessment/Plan: -GI on board -pain control Code(s): R10.9 - UNSPECIFIED ABDOMINAL PAIN Qualifiers: Qualified Code(s): R10.84 - Generalized abdominal pain (2) Fecal impaction Assessment/Plan: -Miralax BID -Simethicone PRN Code(s): K56.41 - FECAL IMPACTION (3) HTN (hypertension) Assessment/Plan: -Amlodipine, Clonidine, Losartan -low Na diet Code(s): I10 - ESSENTIAL (PRIMARY) HYPERTENSION (4) Seizure disorder Assessment/Plan: -Dilantin, Gabapentin -seizure precautions Code(s): G40.909 - EPILEPSY, UNSP, NOT INTRACTABLE, WITHOUT STATUS EPILEPTICUS Assessment/Plan see problem list dvt ppx
[2019-08-05] MEDS ORDERED: METOCLOPRAMIDE HCL 10 MG TABLET (FP) PO SCH (16:30)
[2019-08-05] MEDS: traMADol HCL 50 MG TABLET PO PRN (19:48)
[2019-08-05] MEDS: QUEtiapine FUMARATE 100 MG TABLET (FP) PO SCH (21:55)
[2019-08-05] MEDS: ZOLPIDEM TARTRATE 5 MG TABLET PO PRN (21:55)
[2019-08-05 23:44] VITALS: BMI 29.8
[2019-08-06 06:05] VITALS: BP 115/73; PULSE 60; TEMP 97.7
[2019-08-06] MEDS: GABAPENTIN 400 MG CAPSULE (FP) PO SCH (06:12)
[2019-08-06] MEDS: traMADol HCL 50 MG TABLET PO PRN (06:12)
[2019-08-06] MEDS: PHENYTOIN NA EXTENDED 100 MG CAPSULE (FP) PO SCH (06:12)
[2019-08-06] MEDS: cloNIDine HCL 0.1 MG TABLET PO SCH (06:12)
[2019-08-06 09:03] LABS: HEMATOCRIT 37.6 % (32.4-45.2); HEMOGLOBIN 12.6 GM/dL (10.7-15.3); MCH 31.7 pg (25.7-33.7); MCHC 33.4 g/dl (32.0-36.0); MEAN PLT VOLUME 11.7 fl (7.5-11.1); PLATELET COUNT 165 K/MM3 (134-434); RBC 3.96 M/mm3 (3.60-5.2); RDW 14.6 % (11.6-15.6); WHITE BLOOD COUNT 4.8 K/mm3 (4.0-10.0)
[2019-08-06] MEDS: HEPARIN NA (PORCINE) 5,000 UNITS/ML 1ML VIAL SQ SCH (09:13)
[2019-08-06] MEDS: LOSARTAN POTASSIUM 50 MG TABLET (FP) PO SCH (09:13)
[2019-08-06] MEDS: amLODIPine BESYLATE 10 MG TABLET (FP) PO SCH (09:13)
[2019-08-06] MEDS: POLYETHYLENE GLYCOL 3350 119 GM BTL PO SCH (09:16)
[2019-08-06 10:00] LABS: BILIRUBIN,TOTAL 0.3 mg/dL (0.2-1); CALCIUM 9.3 mg/dL (8.5-10.1); CREATININE 0.8 mg/dL (0.55-1.3); POTASSIUM 4.5 mmol/L (3.5-5.1); TOT PROT 7.1 g/dl (6.4-8.2)
--- NOTE | 2019-08-06 10:23 | DS ---
"Physical Examination Vital Signs: Vital Signs Temperature 97.7 F 08/06/19 06:00 Pulse Rate 60 08/06/19 06:00 Respiratory Rate 20 08/06/19 06:00 Blood Pressure 115/73 08/06/19 06:00 O2 Sat by Pulse Oximetry (%) 95 08/05/19 21:00 Findings/Remarks: Laboratory Tests 07/31/19 07/31/19 07/31/19 06:24 06:24 10:56 WBC 11.0 H RBC 4.59 Hgb 14.6 Hct 42.8 MCV 93.2 MCH 31.8 MCHC 34.2 RDW 14.3 Plt Count 315 D MPV 10.4 Absolute Neuts (auto) 8.7 H Neutrophils % 79.0 D Neutrophils % (Manual) 84.6 H Band Neutrophils % 0.0 Lymphocytes % 11.9 D Lymphocytes % (Manual) 6.7 L Monocytes % 8.1 Monocytes % (Manual) 9 Eosinophils % 0.2 D Eosinophils % (Manual) 0.0 Basophils % 0.8 Basophils % (Manual) 0.0 Myelocytes % (Man) 0 Promyelocytes % (Man) 0 Blast Cells % (Manual) 0 Nucleated RBC % 0 Metamyelocytes 0 Hypochromia 0 Platelet Estimate Normal Polychromasia 0 Poikilocytosis 0 Anisocytosis 0 Microcytosis 0 Macrocytosis 0 PT with INR INR PTT (Actin FS) Sodium 141 Potassium 4.1 Chloride 108 H Carbon Dioxide 23 Anion Gap 10 BUN 19.1 H Creatinine 1.2 Est GFR (CKD-EPI)AfAm 54.92 Est GFR (CKD-EPI)NonAf 47.39 Random Glucose 100 Lactic Acid Calcium 9.9 Phosphorus Magnesium Total Bilirubin 0.7 AST 18 ALT 19 Alkaline Phosphatase 137 H Total Protein 8.3 H Albumin 4.8 Lipase 157 Urine Color Yellow Urine Appearance Clear Urine pH 6.5 Ur Specific [place] 1.051 H Urine Protein Negative Urine Glucose (UA) Negative Urine Ketones Trace Urine Blood Negative Urine Nitrite Negative Urine Bilirubin Negative Urine Urobilinogen 0.2 Ur Leukocyte Esterase Negative 07/31/19 08/01/19 08/01/19 10:59 07:53 07:53 WBC 6.3 RBC 4.09 Hgb 13.0 Hct 38.2 MCV 93.4 MCH 31.9 MCHC 34.2 RDW 14.5 Plt Count 253 MPV 10.5 Absolute Neuts (auto) Neutrophils % Neutrophils % (Manual) Band Neutrophils % Lymphocytes % Lymphocytes % (Manual) Monocytes % Monocytes % (Manual) Eosinophils % Eosinophils % (Manual) Basophils % Basophils % (Manual) Myelocytes % (Man) Promyelocytes % (Man) Blast Cells % (Manual) Nucleated RBC % Metamyelocytes Hypochromia Platelet Estimate Polychromasia Poikilocytosis Anisocytosis Microcytosis Macrocytosis PT with INR 12.30 INR 1.04 PTT (Actin FS) 40.6 H Sodium Potassium Chloride Carbon Dioxide Anion Gap BUN Creatinine Est GFR (CKD-EPI)AfAm Est GFR (CKD-EPI)NonAf Random Glucose Lactic Acid 1.1 Calcium Phosphorus Magnesium Total Bilirubin AST ALT Alkaline Phosphatase Total Protein Albumin Lipase Urine Color Urine Appearance Urine pH Ur Specific [place] Urine Protein Urine Glucose (UA) Urine Ketones Urine Blood Urine Nitrite Urine Bilirubin Urine Urobilinogen Ur Leukocyte Esterase 08/01/19 08/02/19 08/05/19 07:53 08:35 07:33 WBC 5.3 RBC 3.90 Hgb 12.4 Hct 37.1 MCV 95.2 MCH 31.8 MCHC 33.4 RDW 14.4 Plt Count 156 D MPV 10.6 Absolute Neuts (auto) Neutrophils % Neutrophils % (Manual) Band Neutrophils % Lymphocytes % Lymphocytes % (Manual) Monocytes % Monocytes % (Manual) Eosinophils % Eosinophils % (Manual) Basophils % Basophils % (Manual) Myelocytes % (Man) Promyelocytes % (Man) Blast Cells % (Manual) Nucleated RBC % Metamyelocytes Hypochromia Platelet Estimate Polychromasia Poikilocytosis Anisocytosis Microcytosis Macrocytosis PT with INR INR PTT (Actin FS) Sodium 141 142 Potassium 3.7 3.6 Chloride 108 H 109 H Carbon Dioxide 23 23 Anion Gap 10 10 BUN 10.6 8.2 Creatinine 0.6 0.8 Est GFR (CKD-EPI)AfAm 110.86 89.67 Est GFR (CKD-EPI)NonAf 95.65 77.37 Random Glucose 79 157 H Lactic Acid Calcium 9.1 8.8 Phosphorus 3.4 Magnesium 2.5 H Total Bilirubin 0.6 0.4 AST 11 L 7 L ALT 17 15 Alkaline Phosphatase 121 H 109 Total Protein 7.0 6.5 Albumin 4.0 3.6 Lipase Urine Color Urine Appearance Urine pH Ur Specific [place] Urine Protein Urine Glucose (UA) Urine Ketones Urine Blood Urine Nitrite Urine Bilirubin Urine Urobilinogen Ur Leukocyte Esterase 08/05/19 08/06/19 08/06/19 07:33 08:00 08:00 WBC 4.8 RBC 3.96 Hgb 12.6 Hct 37.6 MCV 95.0 MCH 31.7 MCHC 33.4 RDW 14.6 Plt Count 165 MPV 11.7 H D Absolute Neuts (auto) Neutrophils % Neutrophils % (Manual) Band Neutrophils % Lymphocytes % Lymphocytes % (Manual) Monocytes % Monocytes % (Manual) Eosinophils % Eosinophils % (Manual) Basophils % Basophils % (Manual) Myelocytes % (Man) Promyelocytes % (Man) Blast Cells % (Manual) Nucleated RBC % Metamyelocytes Hypochromia Platelet Estimate Polychromasia Poikilocytosis Anisocytosis Microcytosis Macrocytosis PT with INR INR PTT (Actin FS) Sodium 141 141 Potassium 3.4 L 4.5 Chloride 106 108 H Carbon Dioxide 27 26 Anion Gap 8 8 BUN 12.6 16.0 Creatinine 0.6 0.8 Est GFR (CKD-EPI)AfAm 110.86 89.67 Est GFR (CKD-EPI)NonAf 95.65 77.37 Random Glucose 93 86 Lactic Acid Calcium 8.8 9.3 Phosphorus Magnesium Total Bilirubin 0.3 0.3 AST 15 21 ALT 27 37 Alkaline Phosphatase 117 129 H Total Protein 6.4 7.1 Albumin 3.5 4.0 Lipase Urine Color Urine Appearance Urine pH Ur Specific [place] Urine Protein Urine Glucose (UA) Urine Ketones Urine Blood Urine Nitrite Urine Bilirubin Urine Urobilinogen Ur Leukocyte Esterase Active Medications Generic Name Dose Route Start Last Admin Trade Name Karl PRN Reason Stop Dose Admin Albuterol Sulfate 1 amp 08/06/19 10:15 Ventolin 0.083% Nebulizer Soln - NEB 08/06/19 10:16 ONCE ONE Amlodipine Besylate 10 mg 08/01/19 10:00 08/06/19 09:13 Norvasc - PO 10 mg DAILY SOURAV Administration Clonidine 0.1 mg 08/04/19 22:00 08/06/19 06:12 Catapres - PO 0.1 mg TID SOURAV Administration Gabapentin 800 mg 08/01/19 14:00 08/06/19 06:12 Neurontin - PO 800 mg TID SOURAV Administration Heparin Sodium (Porcine) 5,000 unit 07/31/19 22:00 08/06/19 09:13 Heparin - SQ 5,000 unit BID SOURAV Administration Losartan Potassium 100 mg 08/02/19 10:00 08/06/19 09:13 Cozaar - PO 100 mg DAILY SOU[facility]V Administration Phenytoin Sodium 100 mg 08/01/19 20:00 08/06/19 06:12 Dilantin - PO 100 mg TID@0600,1400,2000 S[facility]V Administration Polyethylene Glycol 17 gm 07/31/19 22:00 08/06/19 09:16 Miralax (For Daily Use) - PO 17 grams BID SOURAV Administration Quetiapine Fumarate 200 mg 08/01/19 22:00 08/05/19 21:55 Seroquel - PO 200 mg HS SOURAV Administration Simethicone 80 mg 08/04/19 13:41 08/05/19 12:45 Mylicon - PO 80 mg QID PRN Administration GAS Tramadol HCl 50 mg 08/05/19 14:36 08/06/19 06:12 Ultram - PO 50 mg Q8H PRN Administration PAIN LEVEL 6-10 Zolpidem Tartrate 5 mg 08/01/19 17:18 08/05/19 21:55 Ambien - PO 5 mg HS PRN Administration INSOMNIA Constitutional: Yes: No Distress, Calm Eyes: Yes: Conjunctiva Clear HENT: Yes: Atraumatic Neck: Yes: Supple Cardiovascular: Yes: Regular Rate and Rhythm Respiratory: Yes: Regular, CTA Bilaterally Gastrointestinal: Yes: Normal Bowel Sounds, Soft Musculoskeletal: Yes: WNL Extremities: Yes: WNL Edema: No Neurological: Yes: Alert, Oriented Psychiatric: Yes: Alert, Oriented Labs: CBC, BMP 08/06/19 08:00 08/06/19 08:00 Discharge Summary Problems reviewed: Yes Reason For Visit: INTRACTABLE ABDOMINAL PAIN Current Active Problems Abdominal pain (Acute) Epigastric abdominal pain (Acute) Fecal impaction (Acute) HTN (hypertension) (Acute) Intractable abdominal pain (Acute) Hospital Course: 64 year old female with PMH significant for HTN, asthma, and proctocolitis. She presented to the ER with complaints of diffuse abdominal pain that began 2 days ago. The pain was gradual in onset, and reached an intensity of level of 10/10 last night. She describes it as a dull, squeezing pain, constant in nature, non- radiating, with no recognized aggravating or alleviating factors. The pain is associated with nausea, multiple episodes of vomiting (producing only mucus), and chills. Her last meal was on Sunday, and she has only been taking liquids since then. Her last BM was earlier today, and described as brown and hard. She has had no recent illness, no changes in her medications, and her last colonsocopy was in January, with no abnormalities reported as far as the patient is aware. She was previously admitted in the ER on 05/27/19 with complaints of abdominal pain, and was found to have proctocoloitis on CT AP, and was treated with Cipro/Flagyl. While in patient followed by GI and CT Scan show fecal impaction. Started on Miralax with good effect and abdominal pain subsided. Condition: Stable - Instructions Diet, Activity, Other Instructions: Patient instructed to follow up with PMD in 1 week from discharge Instructed to follow up with Claims Counsel Dr Finnegan Patient says she will follow up with her GI at [facility] for outpatient follow up of abdominal pain continue current medication as prescribed return to ER if develop severe pain, respiratory distress, chest pain, fever/ chills [place]: This report was requested by: Elina Patel | Reference #: [id number] Referrals: Cristi Finnegan MD [Staff Physician] - Yariel Springer [Primary Care Provider] - Disposition: HOME - Home Medications Comprehensive Discharge Medication List: Ambulatory Orders Gabapentin [Neurontin] 800 mg PO TID 04/11/15 Losartan/Hydrochlorothiazide [Losartan-Hctz 100-25 mg Tablet] 1 each PO DAILY Amlodipine Besylate [Norvasc -] 10 mg PO DAILY #30 tablet 03/27/17 Phenytoin Na Extended [Dilantin -] 100 mg PO TID #0 cap 09/14/17 Zolpidem Tartrate [Ambien] 10 mg PO HS PRN tablet MDD 1 09/14/17 Quetiapine Fumarate [Seroquel -] 200 tab PO HS 12/31/17 cloNIDine HCL [Catapres -] 0.1 mg PO TID 12/31/17 Carisoprodol [Soma -] 350 mg PO TID 10/14/18 Amlodipine Besylate [Norvasc -] 10 mg PO DAILY tablet 08/06/19 Pantoprazole Sodium [Protonix -] 40 mg PO DAILY #30 tablet.ec 08/06/19 Polyethylene Glycol 3350 [Miralax 119 gm Btl -] 17 gm PO BID #1 bottle 08/06/19 Simethicone [Mylicon -] 80 mg PO QID PRN #90 tab.chew 08/06/19 traMADol HCL [Ultram -] 50 mg PO Q8H PRN #9 tablet MDD 3 08/06/19 Prescription Drug Monitoring Program (I-STOP) results: I-STOP reviewed and no issues identified"
[2019-08-06] MEDS ORDERED: ALBUTEROL SO4 0.083% IH SOL 2.5 MG/3 ML VIAL.NEB. NEB ONE (11:00)
--- NOTE | 2019-08-06 11:51 | PN ---
Progress Note (short form) - Note Progress Note: s: no chest pain, palps, dizziness, dyspnea Current Medications Amlodipine Besylate (Norvasc -) 10 mg PO DAILY [facility] Last Admin: 08/06/19 09:13 Dose: 10 mg Clonidine (Catapres -) 0.1 mg PO TID [facility] Last Admin: 08/06/19 06:12 Dose: 0.1 mg Gabapentin (Neurontin -) 800 mg PO TID [facility] Last Admin: 08/06/19 06:12 Dose: 800 mg Heparin Sodium (Porcine) (Heparin -) 5,000 unit SQ BID [facility] Last Admin: 08/06/19 09:13 Dose: 5,000 unit Losartan Potassium (Cozaar -) 100 mg PO DAILY [facility] Last Admin: 08/06/19 09:13 Dose: 100 mg Phenytoin Sodium (Dilantin -) 100 mg PO TID@0600,1400,2000 [facility] Last Admin: 08/06/19 06:12 Dose: 100 mg Polyethylene Glycol (Miralax (For Daily Use) -) 17 gm PO BID [facility] Last Admin: 08/06/19 09:16 Dose: 17 grams Quetiapine Fumarate (Seroquel -) 200 mg PO HS [facility] Last Admin: 08/05/19 21:55 Dose: 200 mg Simethicone (Mylicon -) 80 mg PO QID PRN PRN Reason: GAS Last Admin: 08/05/19 12:45 Dose: 80 mg Tramadol HCl (Ultram -) 50 mg PO Q8H PRN PRN Reason: PAIN LEVEL 6-10 Last Admin: 08/06/19 06:12 Dose: 50 mg Zolpidem Tartrate (Ambien -) 5 mg PO HS PRN PRN Reason: INSOMNIA Last Admin: 08/05/19 21:55 Dose: 5 mg Vital Signs Period Temp Pulse Resp BP Sys/Blackburn Pulse Ox Last 24 Hr 97.7 F-97.9 F 60-66 20-20 110-115/70-73 95-98 Constitutional: Yes: Calm Cardiovascular: Yes: Regular Rate and Rhythm Respiratory: Yes: CTA Bilaterally Gastrointestinal: Yes: Soft (no rebound or guarding) Edema: No Neurological: Yes: Alert, Oriented no jaundice, diaphoresis not agitated Assessment/Plan echo repeated 08/04: Normal LVEF, mild AVS EKG: sinus, PVCs abd pain - manage per primary, GI Palpitations - PVCs noted on EKG - Echo normal LVEF - replete lytes for K>4, Mg >2 HTN - BP trend improved. - cont amlodipine, losartan- HCTZ, clonidine stable from cardiac perspective
== END 2019-08-06 13:25 | disposition home or self-care (01) | DRG 390 ==
LOC: JER 04:22 → JERBED 11:40 → J6S 14:48
PROVIDERS: ADMIT Family Medicine; ATTEND Family Medicine
DX: K56.41 Fecal impaction (principal); I25.10 Atherosclerotic heart disease of native coronary artery without angina pectoris; K59.8 Other specified functional intestinal disorders; I10 Essential (primary) hypertension; E78.5 Hyperlipidemia, unspecified; M54.5 Low back pain; G40.909 Epilepsy, unspecified, not intractable, without status epilepticus; G62.9 Polyneuropathy, unspecified; G43.909 Migraine, unspecified, not intractable, without status migrainosus; I49.3 Ventricular premature depolarization
CPT/HCPCS: 36415; 74018-TC-FY; 74177-TC; 76775-TC; 76856-TC; 80053; 81003; 83605; 83690; 83735; 84100; 85025; 85027; 85610; 85730; 93005; 93010; 93306-TC; 94640; 99284-25; J0131; J0735; J1644; J7030

== ENCOUNTER 2019-11-29 10:33 | Inpatient (IN) | payer BC, OTHER ==
--- NOTE | 2019-11-29 11:37 | PDOC ---
History of Present Illness - General Chief Complaint: Back Pain Stated Complaint: BACK PAIN - History of Present Illness Initial Comments: 11/29/19 11:43 HPI: 64 y/o M with hx of CAD, AFib (on aspirin only), HTN, HLD, SBO, asthma, and chronic back pain s/p back surgery 3 weeks ago presenting with fall last night. She reported slipping last night and initially catching herself on her walker and then lost her balance and fell backward. She reports pain following the fall along her incision site and into this morning. She has not taken any pain meds. She reports needing to crawl into her bed because she wasnt able to get up on her own; required EMS for arrival. Denies fever, chills, LOC, seizures, chest pain, SOB, abd pain, n/v. PMHx: as noted above ROS: as noted SHx: Denies tobacco use; no alcohol use; no rec drugs Allergies: NKDA ROS: GENERAL/CONSTITUTIONAL: No fever or chills. No weakness. HEAD, EYES, EARS, NOSE AND THROAT: No change in vision. No ear pain or discharge. No sore throat. CARDIOVASCULAR: No chest pain or shortness of breath RESPIRATORY: No cough, wheezing, or hemoptysis. GASTROINTESTINAL: No nausea, vomiting, diarrhea or constipation. GENITOURINARY: No dysuria, frequency, or change in urination. MUSCULOSKELETAL: +back pain SKIN: No rash NEUROLOGIC: No headache, vertigo, loss of consciousness, or change in strength/ sensation. ENDOCRINE: No increased thirst. No abnormal weight change HEMATOLOGIC/LYMPHATIC: No anemia, easy bleeding, or history of blood clots. ALLERGIC/IMMUNOLOGIC: No hives or skin allergy. PE: GENERAL: Awake, alert, and fully oriented, no acute distress HEAD: No signs of trauma, normocephalic, atraumatic EYES: EOMI, sclera anicteric, conjunctiva clear ENT: Auricles normal inspection, hearing grossly normal, nares patent, oropharynx clear without exudates. Moist mucosa NECK: Normal ROM, no lymphadenopathy LUNGS: No increased work of breathing, symmetrical chest rise, clear to auscultation bilaterally, no wheezes, crackles or rhonchi HEART: Regular rate, regular rhythm, normal S1 and S2, no murmur, peripheral pulses 2+ and equal bilaterally. ABDOMEN: Soft, nondistended, nontender, normoactive bowel sounds. No guarding, no rebound. No masses. No CVAT MUSCULOSKELETAL: FROM, low thoracic and lumbar paraspinal ttp NEUROLOGICAL: Cranial nerves II through XII grossly intact. Normal speech, normal gait, no focal sensorimotor deficits SKIN: Warm, Dry, normal turgor, no rashes or lesions noted Past History - Past Medical History Allergies/Adverse Reactions: Allergies Allergy/AdvReac Type Severity Reaction Status Date / Time No Known Allergies Allergy Verified 11/29/19 10:43 Home Medications: Ambulatory Orders Gabapentin [Neurontin] 800 mg PO TID 04/11/15 Losartan/Hydrochlorothiazide [Losartan-Hctz 100-25 mg Tablet] 1 each PO DAILY Amlodipine Besylate [Norvasc -] 10 mg PO DAILY #30 tablet 03/27/17 Phenytoin Na Extended [Dilantin -] 100 mg PO TID #0 cap 09/14/17 Zolpidem Tartrate [Ambien] 10 mg PO HS PRN tablet MDD 1 09/14/17 Quetiapine Fumarate [Seroquel -] 200 tab PO HS 12/31/17 cloNIDine HCL [Catapres -] 0.1 mg PO TID 12/31/17 Carisoprodol [Soma -] 350 mg PO TID 10/14/18 Amlodipine Besylate [Norvasc -] 10 mg PO DAILY tablet 08/06/19 Pantoprazole Sodium [Protonix -] 40 mg PO DAILY #30 tablet.ec 08/06/19 Polyethylene Glycol 3350 [Miralax 119 gm Btl -] 17 gm PO BID #1 bottle 08/06/19 Simethicone [Mylicon -] 80 mg PO QID PRN #90 tab.chew 08/06/19 traMADol HCL [Ultram -] 50 mg PO Q8H PRN #9 tablet MDD 3 08/06/19 Anemia: No Asthma: Yes Cancer: No Cardiac Disorders: Yes (afib) CVA: No COPD: No CHF: No Dementia: No Diabetes: No GI Disorders: Yes (COLITIS) Disorders: No HTN: Yes Hypercholesterolemia: Yes Liver Disease: No Seizures: Yes (Epilepsy) Thyroid Disease: No - Surgical History Abdominal Surgery: No Appendectomy: Yes Cardiac Surgery: No Cholecystectomy: No Lung Surgery: No Neurologic Surgery: No Orthopedic Surgery: Yes (both knee replacement) - Immunization History Immunization Up to Date: Yes - Psycho Social/Smoking Cessation Hx Smoking Status: No Smoking History: Never smoked Years of Tobacco Use: 10 Have you smoked in the past 12 months: No Number of Cigarettes Smoked Daily: 0 If you are a former smoker, when did you quit?: 2002 - smoked 1ppwk for about 10 yrs Hx Alcohol Use: No Drug/Substance Use Hx: No Substance Use Type: None Hx Substance Use Treatment: No *Physical Exam - Vital Signs Last Vital Signs Temp Pulse Resp BP Pulse Ox 98.2 F 95 H 20 115/84 100 11/29/19 10:40 11/29/19 10:40 11/29/19 10:40 11/29/19 10:40 11/29/19 10:40 ED Treatment Course - LABORATORY CBC & Chemistry Diagram: 11/29/19 16:59 11/29/19 16:59 Medical Decision Making - Medical Decision Making 11/29/19 17:13 64 y/o M with hx of CAD, AFib (on aspirin only), HTN, HLD, SBO, asthma, and chronic back pain s/p back surgery 3 weeks ago presenting with fall last night and now having significant pain. VSS, AF. PE with low thoracic and lumbar ttp. -CT C/T/L spine -pain control 11/29/19 17:16 discussed with her spinal surgeon regarding etiology of pain given negative films and he had no additional recommendations at the time patient still with pain, requiring iv narcotics; ambulating with difficulty and pain will admit for pain control and rehab placement given difficulty ambulating and fall 11/29/19 18:17 admitted to [facility] Discharge - Discharge Information Problems reviewed: Yes Clinical Impression/Diagnosis: Back pain Qualifiers: Back pain location: low back pain Chronicity: unspecified Back pain laterality : bilateral Sciatica presence: without sciatica Qualified Code(s): M54.5 - Low back pain - Follow up/Referral Referrals: Leela Brennan MD [Primary Care Provider] - - Patient Discharge Instructions - Post Discharge Activity
[2019-11-29] MEDS ORDERED: ACETAMINOPHEN 500 MG TABLET (FP) PO ONE (12:52)
[2019-11-29] MEDS ORDERED: ACETAMINOPHEN 325 MG TABLET (FP) ONE (13:08)
[2019-11-29] MEDS ORDERED: morphine CARPU-JECT 2 MG/1 ML DISP.SYRIN IVPUSH ONE (16:44)
[2019-11-29] MEDS ORDERED: MORPHINE SULFATE 2 MG/ML VIAL ONE (17:02)
[2019-11-29 17:18] LABS: BASO % 1.6 % (0-2.0); EOS % 0.6 % (0-4.5); HEMATOCRIT 28.2 % (32.4-45.2); HEMOGLOBIN 9.4 GM/dL (10.7-15.3); MCH 31.8 pg (25.7-33.7); MCHC 33.3 g/dl (32.0-36.0); MEAN CELL VOLUME 95.6 fl (80-96); MONO % 12.4 % (3.8-10.2); NEUT % 47.4 % (42.8-82.8); PLATELET COUNT 447 K/MM3 (134-434); RBC 2.95 M/mm3 (3.60-5.2); RDW 14.5 % (11.6-15.6); WHITE BLOOD COUNT 3.3 K/mm3 (4.0-10.0)
[2019-11-29 17:53] LABS: ALBUMIN 3.3 g/dl (3.4-5.0); BILIRUBIN,TOTAL 0.2 mg/dL (0.2-1); CALCIUM 8.9 mg/dL (8.5-10.1); CREATININE 0.6 mg/dL (0.55-1.3); POTASSIUM 4.4 mmol/L (3.5-5.1); TOT PROT 7.3 g/dl (6.4-8.2)
[2019-11-29] MEDS ORDERED: SENNOSIDES 8.6MG TABLET (FP) PO PRN (19:35)
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
[2019-11-29] MEDS ORDERED: ACETAMINOPHEN 1000 MG/100 ML VIAL (NON FORMULARY) IVPB PRN (20:40)
[2019-11-29] MEDS: oxyCODONE HCL 5 MG TABLET PO PRN (20:46)
--- NOTE | 2019-11-29 21:32 | PDOC ---
Documentation entered by Tj Ramirez SCRIBE, acting as scribe for Maria Luisa Nicole MD. Maria Luisa Nicole MD: This documentation has been prepared by the Ashley ritter Xhesika, SCRIBE, under my direction and personally reviewed by me in its entirety. I confirm that the documentation accurately reflects all work, treatment, procedures, and medical decision making performed by me. Attending Attestation - Resident Resident Name: Carlton Pires - ED Attending Attestation I have performed the following: I have examined & evaluated the patient, The case was reviewed & discussed with the resident, I agree w/resident's findings & plan, Exceptions are as noted - HPI HPI: 11/29/19 12:13 The patient is a 64 year old female with a significant PMH of CAD, AFib (on aspirin only), HTN, HLD, SBO, asthma, chronic back pain s/p L4-S1 "clipping" ( at [facility] 3 wks ago) who presents to the emergency department for back pain s/p mechanical fall last night. The patient states she fell forwards on her walker, tried to catch herself and fell backwards hitting her back. Patient denies LOC. She reports diffuse back pain. Denies new focal weakness/numbness, urine/stool incontinence or retention. Pt reports she had surgery 11/11/2019 and got "rods and pins and things" in her spine. The patient denies chest pain, shortness of breath, headache and dizziness. Denies fever, chills, cough, nausea, vomiting, diarrhea and constipation. Denies dysuria, frequency, urgency and hematuria. Allergies: NKDA Past surgical history: L4-S1 "clips" placed 3 wks ago, appendectomy, b/l knee replacement PCP: Dr. Brennan - Physicial Exam PE: 11/29/19 12:13 GENERAL: Awake, alert, and fully oriented, in no acute distress HEAD: No signs of trauma, no bony ttp EYES: PERRLA, EOMI, sclera anicteric, conjunctiva clear ENT: Auricles normal inspection, hearing grossly normal, nares patent, oropharynx clear without exudates. Moist mucosa NECK: Normal ROM, supple, no lymphadenopathy, JVD, or masses LUNGS: Breath sounds equal, clear to auscultation bilaterally. No wheezes, and no crackles HEART: Regular rate and rhythm, normal S1 and S2, no murmurs, rubs or gallops ABDOMEN: Soft, nontender, normoactive bowel sounds. No guarding, no rebound. No masses EXTREMITIES: Normal range of motion, no edema. No clubbing or cyanosis. No cords , erythema, or tenderness BACK: + DIffuse mild midline spinal tenderness in cervical/thoracic/lumbar region. Lumbosacral surgical scar c/d/i NEUROLOGICAL: Normal speech, cranial nerves intact, 5/5 strength in all 4 extremities, normal sensation to light touch in all 4 extremities, normal FNF, antalgic but normal gait with assistance, normal reflexes and tone SKIN: Warm, Dry, normal turgor, no rashes or lesions noted. - Medical Decision Making 11/29/19 16:25 64yo F, recent lumbosacral spinal surgery at [facility] presents to the ED with back pain after a mechanical fall last night. +diffuse midline spinal ttp duffy scan of spine with no acute fracture Pt given tylenol for pain control (no pain meds tried today) Initially reported improvement Case discussed with Dr. Mir from Sp[facility] at [facility], imaging reviewed, has no further recs so long as pt w no neuro deficits On re-evaluation, pt reporting recurrent low back pain, concern to go home alone as she lives by herself. Family at bedside can not stay with patient. Pt has no home aides or visiting nurse Pt able to ambulate with assistance in ED for 2-3 steps, feels unsteady otherwise 2/2 pain At this pt, pt dosed IV pain meds, basic labs sent in anticipation of admission for inability to ambulate/unsafe DC
[2019-11-29] MEDS: cloNIDine HCL 0.1 MG TABLET PO SCH (22:59)
[2019-11-29] MEDS: QUEtiapine FUMARATE 200 MG TABLET PO SCH (22:59)
[2019-11-29] MEDS: ZOLPIDEM TARTRATE 5 MG TABLET PO PRN (22:59)
[2019-11-29] MEDS: HEPARIN NA (PORCINE) 5,000 UNITS/ML 1ML VIAL SQ SCH (22:59)
[2019-11-29] MEDS: PHENYTOIN NA EXTENDED 100 MG CAPSULE (FP) PO SCH (23:00)
[2019-11-30 00:21] VITALS: BMI 27.2
[2019-11-30] MEDS: oxyCODONE HCL 5 MG TABLET PO PRN ×3 (03:03→19:38)
[2019-11-30] MEDS: cloNIDine HCL 0.1 MG TABLET PO SCH ×3 (07:07→22:01)
[2019-11-30] MEDS: PHENYTOIN NA EXTENDED 100 MG CAPSULE (FP) PO SCH ×3 (07:08→22:01)
--- NOTE | 2019-11-30 08:24 | PN ---
Progress Note, Physician Chief Complaint: S/p Fall Lower Back Pain History of Present Illness: Previous notes and events reviewed awake and alert NAD complain of sharp lower back pain denies chest pain or dizziness s/p spinal fusion surgery 3 wks ago at [facility] with Dr Mir - Current Medication List Current Medications: Active Medications Acetaminophen (Ofirmev Injection -) 1,000 mg IVPB Q6H PRN PRN Reason: PAIN LEVEL 4 - 6 Stop: 11/30/19 20:40 Last Admin: 11/29/19 20:52 Dose: 1,000 mg Amlodipine Besylate (Norvasc -) 10 mg PO DAILY [facility] Aspirin (Ecotrin -) 81 mg PO DAILY [facility] Clonidine (Catapres -) 0.1 mg PO TID [facility] Last Admin: 11/30/19 07:07 Dose: 0.1 mg Docusate Sodium (Colace -) 100 mg PO BID PRN PRN Reason: CONSTIPATION Heparin Sodium (Porcine) (Heparin -) 5,000 unit SQ BID [facility] Last Admin: 11/29/19 22:59 Dose: 5,000 unit Influenza Virus Vaccine Quadrival (Flulaval Quad [id number]) 60 mcg IM .ONCE ONE Stop: 11/30/19 00:56 Losartan Potassium (Cozaar -) 100 mg PO DAILY [facility] Oxycodone HCl (Roxicodone -) 10 mg PO Q6H PRN PRN Reason: PAIN LEVEL 6-10 Last Admin: 11/30/19 03:03 Dose: 10 mg Phenytoin Sodium (Dilantin -) 100 mg PO TID [facility] Last Admin: 11/30/19 07:08 Dose: 100 mg Pneumococcal 13-Valent Conj Vacc (Prevnar 13 Syringe -) 0.5 ml IM .ONCE ONE Stop: 11/30/19 00:59 Quetiapine Fumarate (Seroquel -) 200 mg PO HS [facility] Last Admin: 11/29/19 22:59 Dose: 200 mg Senna (Senna -) 2 tab PO HS PRN PRN Reason: CONSTIPATION Zolpidem Tartrate (Ambien -) 5 mg PO HS PRN PRN Reason: INSOMNIA Last Admin: 11/29/19 22:59 Dose: 5 mg - Objective Vital Signs: Vital Signs Temperature 97.9 F 11/30/19 05:00 Pulse Rate 72 11/30/19 05:00 Respiratory Rate 18 11/30/19 05:00 Blood Pressure 145/79 11/30/19 05:00 O2 Sat by Pulse Oximetry (%) 99 11/29/19 23:00 Constitutional: Yes: No Distress, Calm Eyes: Yes: Conjunctiva Clear HENT: Yes: Atraumatic Cardiovascular: Yes: Regular Rate and Rhythm Respiratory: Yes: Regular, CTA Bilaterally Gastrointestinal: Yes: Normal Bowel Sounds, Soft Musculoskeletal: Yes: Muscle Weakness Extremities: Yes: WNL Edema: No Integumentary: Yes: Other (surgical scar lower back) Neurological: Yes: Alert, Oriented, Weakness (LLE) Psychiatric: Yes: Alert, Oriented - ....Imaging Cat Scan: Report Reviewed Problem List - Problems (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 Assessment/Plan: -Wildoden HILLIARD -Vincent prn Code(s): F51.05 - INSOMNIA DUE TO OTHER MENTAL DISORDER (2) Chronic back pain Assessment/Plan: -Neurosurgery consult -pain control -patient is s/p spinal fusion 3 wks ago at [facility] with Dr Mir -PT -fall precaution -Lumbar CT scan shows s/p posterior fusion of L4-S1 in satisfactory alignment , interbody spacer at L4-L5 level is in satisfactory position, interbody spacer at L5-S1 is slightly extending beyond the posterior margin of L5 verterbral body into the anterior aspect of the spinal canal, left transpedicular screw at S1 level is traversing along the left margin of the spinal canal just superior to left S1 nerve root, post op soft tissue swelling with subcutaneous edema and likely loculated serosanguinous fluid fluid present, significant degenerative disc disease L2-L3 and L3-L4 level and irregularity of the corresponding endplates again seen -Thoracic Spine CT scan shows no compression fracture or subluxation identified , intervertebral disc spaces are intact, multilevel degenerative disc disease, Code(s): M54.9 - DORSALGIA, UNSPECIFIED; G89.29 - OTHER CHRONIC PAIN Qualifiers: Back pain location: low back pain Back pain laterality: bilateral (3) HTN (hypertension) Assessment/Plan: -Amlodipine, Clonidine, Losartan -low Na diet Code(s): I10 - ESSENTIAL (PRIMARY) HYPERTENSION (4) Fall Assessment/Plan: -patient is s/p spinal fusion 3 wks ago at [facility] with Dr Mir -PT -fall precaution -Lumbar CT scan shows s/p posterior fusion of L4-S1 in satisfactory alignment , interbody spacer at L4-L5 level is in satisfactory position, interbody spacer at L5-S1 is slightly extending beyond the posterior margin of L5 verterbral body into the anterior aspect of the spinal canal, left transpedicular screw at S1 level is traversing along the left margin of the spinal canal just superior to left S1 nerve root, post op soft tissue swelling with subcutaneous edema and likely loculated serosanguinous fluid fluid present, significant degenerative disc disease L2-L3 and L3-L4 level and irregularity of the corresponding endplates again seen -Thoracic Spine CT scan shows no compression fracture or subluxation identified , intervertebral disc spaces are intact, multilevel degenerative disc disease -C-spine CT scan shows the alignment is satisfactory, no gross fracture or subluxation is seen, multilevel degenerative disc disease -possible SNF on discharge for PT Code(s): W19.XXXA - UNSPECIFIED FALL, INITIAL ENCOUNTER (5) Seizure disorder Assessment/Plan: -Dilantin -dilantin level -seizure precaution Code(s): G40.909 - EPILEPSY, UNSP, NOT INTRACTABLE, WITHOUT STATUS EPILEPTICUS (6) Anemia Assessment/Plan: -Hg 9.4~8.7 -Stool OB -Anemia profile -transfuse for Hg <8.0 Code(s): D64.9 - ANEMIA, UNSPECIFIED Assessment/Plan see problem list dvt ppx
[2019-11-30 08:27] LABS: HEMATOCRIT 25.9 % (32.4-45.2); HEMOGLOBIN 8.7 GM/dL (10.7-15.3); MCH 31.5 pg (25.7-33.7); MCHC 33.6 g/dl (32.0-36.0); MEAN CELL VOLUME 93.8 fl (80-96); MEAN PLT VOLUME 8.5 fl (7.5-11.1); PLATELET COUNT 311 K/MM3 (134-434); RBC 2.76 M/mm3 (3.60-5.2); RDW 14.4 % (11.6-15.6); WHITE BLOOD COUNT 2.5 K/mm3 (4.0-10.0)
[2019-11-30 08:52] LABS: BLOOD UREA NITROGEN 7.9 mg/dL (7-18); CALCIUM 8.7 mg/dL (8.5-10.1); CREATININE 0.4 mg/dL (0.55-1.3); MAGNESIUM 2.2 mg/dL (1.8-2.4); PHOSPHOROUS 3.9 mg/dL (2.5-4.9); POTASSIUM 3.8 mmol/L (3.5-5.1)
[2019-11-30] MEDS: HEPARIN NA (PORCINE) 5,000 UNITS/ML 1ML VIAL SQ SCH ×2 (11:00→22:01)
[2019-11-30] MEDS: ASPIRIN COATED 81 MG TABLET.EC PO SCH (11:00)
[2019-11-30] MEDS: amLODIPine BESYLATE 10 MG TABLET (FP) PO SCH (11:00)
[2019-11-30] MEDS: DOCUSATE SODIUM 100 MG CAPSULE (FP) PO PRN (11:00)
[2019-11-30] MEDS: LOSARTAN POTASSIUM 50 MG TABLET (FP) PO SCH (11:05)
[2019-11-30] MEDS ORDERED: PNEUMOC 13-VAL CONJ-DIP CRM/PF 0.5 ML DISP.SYRIN IM ONE (11:30)
[2019-11-30] MEDS ORDERED: FLU VACCINE QUAD 60 MCG/0.5 ML (MDV 19-20) IM ONE (11:30)
--- NOTE | 2019-11-30 14:11 | EKG ---
Test Reason : Blood Pressure : / mmHG Vent. Rate : 084 BPM Atrial Rate : 084 BPM P-R Int : 144 ms QRS Dur : 090 ms QT Int : 400 ms P-R-T Axes : 044 046 026 degrees QTc Int : 472 ms SINUS RHYTHM WITH OCCASIONAL PREMATURE VENTRICULAR COMPLEXES LEFT ATRIAL ENLARGEMENT NONSPECIFIC ST ABNORMALITY ABNORMAL ECG Confirmed by MD MIRIAM, ROWENA ([id number]) on 11/30/2019 2:10:35 PM Referred By: Confirmed By:ROWENA PINEDA MD
--- NOTE | 2019-11-30 16:41 | CONSULT ---
Consult - text type - Consultation Consultation Note: NEUROSURGERY CONSULTATION Suad Carr is a 64year old female who has achief complaint of Low back pain and Left leg radicular pain. The patient has a long history of back and leg pains and underwent a decompressive procedure 2 years ago at [facility] with Dr. Mir. She recently presented with progressive mechanical back pain and radicular pain and was treated with reoperative decompression and L4-S1 posterior interbody fusion with pedicle screws. This recent procedure was performed on November 11, 2019, also at [facility]. The patient reports staying in the hospital for 2 weeks and then having been discharged home. She was walking with a walker and fell backwards on November 28, 2019. She did not strike her head, however, she has worsening back pain as well as progression of the numbness and tingling in her hands since this fall. She was brought to the [facility] ED for further evaluation and was admitted. The patient was referred by Dr. Leela Brennan for further evaluation and management. Past medical history notable for AFIB, HTN, HLD and insomnia. The patient has aggravation of back pain with vibration and jostling such as riding in a car over a bumpy road, pot holes or rail road tracks. The patient has aggravation of symptoms associated with Valsalvas maneuver. The patient walks better with a stooped posture such as pushing a shopping cart. Patient has diminished Plantarflexion on the Left (4/5) and diminished sensation in the Left S1 dermatome. CT Lumbar demonstrates Lumbar degenerative kyphosis with moderate to severe spondylosis with osteophytes, disc bulges and hypertrophic facets and ligamentum flavum. There is evidence of decompression at L4-S1 with pedicle screws at L4, L5 & S1. The Left S1 screw is medial (Grade 4 breach) and likely irritates the Left S1 nerve root. There are significant degenerative changes at the L23 and L34 levels as well. CT Cervical demonstrates significant spondylosis and loss of lordosis with suspected cord compression from severe stenosis and spondylosis. I feel that the patient would benefit from evaluation from MRI Cervical and Lumbar. I will return to discuss potential treatment strategies once this MRI has been reviewed.. I briefly outlined the potential role of revision of the Left S1 screw as well as potential extension of the construct to L2, however, we agreed to review all options once the imaging has been completed.
[2019-11-30] MEDS: QUEtiapine FUMARATE 200 MG TABLET PO SCH (22:01)
[2019-11-30] MEDS: ZOLPIDEM TARTRATE 5 MG TABLET PO PRN (22:57)
[2019-12-01] MEDS: oxyCODONE HCL 5 MG TABLET PO PRN ×2 (06:58→13:57)
[2019-12-01] MEDS: PHENYTOIN NA EXTENDED 100 MG CAPSULE (FP) PO SCH ×3 (06:58→22:30)
[2019-12-01] MEDS: cloNIDine HCL 0.1 MG TABLET PO SCH ×3 (06:58→22:30)
--- NOTE | 2019-12-01 11:06 | PN ---
Progress Note, Physician Chief Complaint: S/p Fall Lower Back Pain History of Present Illness: NAD in bed c/o severe low back pain BLLE numbness, L>R Seen by Neurology CT scans reviewed Had MRI this AM, results pending - Current Medication List Current Medications: Active Medications Amlodipine Besylate (Norvasc -) 10 mg PO DAILY [facility] Last Admin: 11/30/19 11:00 Dose: 10 mg Aspirin (Ecotrin -) 81 mg PO DAILY [facility] Last Admin: 11/30/19 11:00 Dose: 81 mg Clonidine (Catapres -) 0.1 mg PO TID [facility] Last Admin: 12/01/19 06:58 Dose: 0.1 mg Docusate Sodium (Colace -) 100 mg PO BID PRN PRN Reason: CONSTIPATION Last Admin: 11/30/19 11:00 Dose: 100 mg Heparin Sodium (Porcine) (Heparin -) 5,000 unit SQ BID [facility] Last Admin: 11/30/19 22:01 Dose: 5,000 unit Losartan Potassium (Cozaar -) 100 mg PO DAILY [facility] Last Admin: 11/30/19 11:05 Dose: 100 mg Oxycodone HCl (Roxicodone -) 10 mg PO Q6H PRN PRN Reason: PAIN LEVEL 6-10 Last Admin: 12/01/19 06:58 Dose: 10 mg Phenytoin Sodium (Dilantin -) 100 mg PO TID [facility] Last Admin: 12/01/19 06:58 Dose: 100 mg Quetiapine Fumarate (Seroquel -) 200 mg PO HS [facility] Last Admin: 11/30/19 22:01 Dose: 200 mg Senna (Senna -) 2 tab PO HS PRN PRN Reason: CONSTIPATION Zolpidem Tartrate (Ambien -) 5 mg PO HS PRN PRN Reason: INSOMNIA Last Admin: 11/30/19 22:57 Dose: 5 mg - Objective Vital Signs: Vital Signs Temperature 98.1 F 12/01/19 06:00 Pulse Rate 72 12/01/19 06:00 Respiratory Rate 18 12/01/19 06:00 Blood Pressure 104/56 L 12/01/19 06:00 O2 Sat by Pulse Oximetry (%) 99 11/30/19 21:00 Constitutional: Yes: Well Nourished, No Distress, Calm Cardiovascular: Yes: Regular Rate and Rhythm Respiratory: Yes: Regular Gastrointestinal: Yes: Normal Bowel Sounds, Soft Genitourinary: Yes: WNL Musculoskeletal: Yes: Muscle Weakness, Other (low back pain) Extremities: Yes: WNL Edema: No Peripheral Pulses WNL: Yes Neurological: Yes: Alert, Oriented, Numbness (LLE) Psychiatric: Yes: Alert, Oriented Labs: CBC, BMP 11/30/19 07:35 11/30/19 07:35 Assessment/Plan (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 Assessment/Plan: -Seroquel HS -Ambien prn Code(s): F51.05 - INSOMNIA DUE TO OTHER MENTAL DISORDER (2) Chronic back pain Assessment/Plan: -Neurosurgery consult -pain control -patient is s/p spinal fusion 3 wks ago at [facility] with Dr Mir -DELMAR -fall precaution -Lumbar CT scan shows s/p posterior fusion of L4-S1 in satisfactory alignment , interbody spacer at L4-L5 level is in satisfactory position, interbody spacer at L5-S1 is slightly extending beyond the posterior margin of L5 verterbral body into the anterior aspect of the spinal canal, left transpedicular screw at S1 level is traversing along the left margin of the spinal canal just superior to left S1 nerve root, post op soft tissue swelling with subcutaneous edema and likely loculated serosanguinous fluid fluid present, significant degenerative disc disease L2-L3 and L3-L4 level and irregularity of the corresponding endplates again seen -Thoracic Spine CT scan shows no compression fracture or subluxation identified , intervertebral disc spaces are intact, multilevel degenerative disc disease, -Restart Gabapentin 900 mg po TID Code(s): M54.9 - DORSALGIA, UNSPECIFIED; G89.29 - OTHER CHRONIC PAIN Qualifiers: Back pain location: low back pain Back pain laterality: bilateral (3) HTN (hypertension) Assessment/Plan: -Amlodipine, Clonidine, Losartan -low Na diet Code(s): I10 - ESSENTIAL (PRIMARY) HYPERTENSION (4) Fall Assessment/Plan: -patient is s/p spinal fusion 3 wks ago at [facility] with Dr Mir -PT -fall precaution -Lumbar CT scan shows s/p posterior fusion of L4-S1 in satisfactory alignment , interbody spacer at L4-L5 level is in satisfactory position, interbody spacer at L5-S1 is slightly extending beyond the posterior margin of L5 verterbral body into the anterior aspect of the spinal canal, left transpedicular screw at S1 level is traversing along the left margin of the spinal canal just superior to left S1 nerve root, post op soft tissue swelling with subcutaneous edema and likely loculated serosanguinous fluid fluid present, significant degenerative disc disease L2-L3 and L3-L4 level and irregularity of the corresponding endplates again seen -Thoracic Spine CT scan shows no compression fracture or subluxation identified , intervertebral disc spaces are intact, multilevel degenerative disc disease -C-spine CT scan shows the alignment is satisfactory, no gross fracture or subluxation is seen, multilevel degenerative disc disease -possible SNF on discharge for PT -Awaiting MRI results Code(s): W19.XXXA - UNSPECIFIED FALL, INITIAL ENCOUNTER (5) Seizure disorder Assessment/Plan: -Dilantin -dilantin level -seizure precaution Code(s): G40.909 - EPILEPSY, UNSP, NOT INTRACTABLE, WITHOUT STATUS EPILEPTICUS (6) Anemia Assessment/Plan: -Hg 9.4~8.7 -Stool OB -Anemia profile -transfuse for Hg <8.0 Code(s): D64.9 - ANEMIA, UNSPECIFIED Assessment/Plan see problem list dvt ppx
[2019-12-01] MEDS ORDERED: ACETAMINOPHEN 325 MG TABLET (FP) PO PRN (11:08)
[2019-12-01 11:25] LABS: HEMATOCRIT 31.3 % (32.4-45.2); HEMOGLOBIN 10.4 GM/dL (10.7-15.3); MCH 31.7 pg (25.7-33.7); MCHC 33.2 g/dl (32.0-36.0); MEAN CELL VOLUME 95.7 fl (80-96); RBC 3.27 M/mm3 (3.60-5.2); RDW 14.3 % (11.6-15.6)
[2019-12-01 11:31] LABS: MEAN PLT VOLUME 9.8 fl (7.5-11.1)
[2019-12-01 11:48] LABS: ALBUMIN 3.4 g/dl (3.4-5.0); BILIRUBIN,TOTAL 0.6 mg/dL (0.2-1); BLOOD UREA NITROGEN 6.5 mg/dL (7-18); CALCIUM 9.6 mg/dL (8.5-10.1); CREATININE 0.7 mg/dL (0.55-1.3); POTASSIUM 4.3 mmol/L (3.5-5.1); TOT PROT 7.9 g/dl (6.4-8.2)
[2019-12-01] MEDS: amLODIPine BESYLATE 10 MG TABLET (FP) PO SCH (12:13)
[2019-12-01] MEDS: LOSARTAN POTASSIUM 50 MG TABLET (FP) PO SCH (12:13)
[2019-12-01] MEDS: ASPIRIN COATED 81 MG TABLET.EC PO SCH (12:14)
[2019-12-01] MEDS: HEPARIN NA (PORCINE) 5,000 UNITS/ML 1ML VIAL SQ SCH ×2 (12:14→23:05)
[2019-12-01] MEDS: BACLOFEN 10 MG TABLET (FP) PO SCH ×2 (13:53→22:30)
[2019-12-01] MEDS: DOCUSATE SODIUM 100 MG CAPSULE (FP) PO PRN (13:53)
[2019-12-01] MEDS: GABAPENTIN 300 MG CAPSULE PO SCH ×2 (13:53→22:31)
[2019-12-01 14:47] LABS: PLATELET COUNT 331 K/MM3 (134-434)
[2019-12-01] MEDS: QUEtiapine FUMARATE 200 MG TABLET PO SCH (22:30)
--- NOTE | 2019-12-01 22:44 | PN ---
Progress Note (short form) - Note Progress Note: Patient remains stable. MRI Cervical and Lumbar reviewed. Cervical spondylosis noted and discussed with patient. She reports hand paresthesias since prior to her recent fall and I discussed how although there are no acute pathological findings, she may ultimately benefit from decompression of the Cervical stenosis if her myelopathy progresses. Discussed the risks, benefits and alternatives to revision Lumbar fusion with L2-S1 decompression and fusion with L23 and L34 interbody cages and pedicle screws from L2-S1 with revision of medial Left S1 screw. I again offered the patient the option of seeking another opinion or returning to Dr. Mir at [facility] (spoke with PA today who inquired about the patient and was willing to review CT and notes if patient consents to sharing her medical information). All questions answered. Will plan for potential revision surgery in AM.
[2019-12-02] MEDS: PHENYTOIN NA EXTENDED 100 MG CAPSULE (FP) PO SCH ×2 (06:16→15:29)
[2019-12-02] MEDS: BACLOFEN 10 MG TABLET (FP) PO SCH ×2 (06:18→16:09)
[2019-12-02] MEDS: GABAPENTIN 300 MG CAPSULE PO SCH ×2 (06:18→15:29)
[2019-12-02] MEDS: cloNIDine HCL 0.1 MG TABLET PO SCH ×2 (06:18→15:29)
[2019-12-02 08:19] LABS: BASO % 0.6 % (0-2.0); EOS % 3.9 % (0-4.5); HEMATOCRIT 25.9 % (32.4-45.2); HEMOGLOBIN 8.7 GM/dL (10.7-15.3); LYMPH % 40.9 % (8-40); MCH 31.6 pg (25.7-33.7); MCHC 33.7 g/dl (32.0-36.0); MEAN CELL VOLUME 93.8 fl (80-96); NEUT % 39.6 % (42.8-82.8); PLATELET COUNT 289 K/MM3 (134-434); RBC 2.76 M/mm3 (3.60-5.2); RDW 14.1 % (11.6-15.6); WHITE BLOOD COUNT 2.5 K/mm3 (4.0-10.0)
[2019-12-02] MEDS: amLODIPine BESYLATE 10 MG TABLET (FP) PO SCH (09:39)
[2019-12-02] MEDS: LOSARTAN POTASSIUM 50 MG TABLET (FP) PO SCH (09:39)
[2019-12-02] MEDS: oxyCODONE HCL 5 MG TABLET PO PRN (09:41)
[2019-12-02] MEDS: ASPIRIN COATED 81 MG TABLET.EC PO SCH (10:00)
--- NOTE | 2019-12-02 10:28 | PN ---
Progress Note, Physician Chief Complaint: S/p Fall Lower Back Pain History of Present Illness: NAD in bed c/o severe low back pain BLLE numbness, L>R Seen by Neurology CT scans reviewed Had MRI this AM, results reviewed with Neurosurgery Possible revision today, pt in agreement. - Current Medication List Current Medications: Active Medications Acetaminophen (Tylenol -) 650 mg PO Q4H PRN PRN Reason: PAIN Amlodipine Besylate (Norvasc -) 10 mg PO DAILY [facility] Last Admin: 12/02/19 09:39 Dose: 10 mg Aspirin (Ecotrin -) 81 mg PO DAILY [facility] Last Admin: 12/01/19 12:14 Dose: 81 mg Baclofen (Lioresal -) 10 mg PO TID [facility] Last Admin: 12/02/19 06:18 Dose: Not Given Clonidine (Catapres -) 0.1 mg PO TID [facility] Last Admin: 12/02/19 06:18 Dose: Not Given Docusate Sodium (Colace -) 100 mg PO BID PRN PRN Reason: CONSTIPATION Last Admin: 12/01/19 13:53 Dose: 100 mg Gabapentin (Neurontin -) 900 mg PO TID [facility] Last Admin: 12/02/19 06:18 Dose: Not Given Heparin Sodium (Porcine) (Heparin -) 5,000 unit SQ BID [facility] Last Admin: 12/01/19 23:05 Dose: Not Given Losartan Potassium (Cozaar -) 100 mg PO DAILY [facility] Last Admin: 12/02/19 09:39 Dose: 100 mg Oxycodone HCl (Roxicodone -) 10 mg PO Q6H PRN PRN Reason: PAIN LEVEL 6-10 Last Admin: 12/02/19 09:41 Dose: 10 mg Phenytoin Sodium (Dilantin -) 100 mg PO TID [facility] Last Admin: 12/02/19 06:16 Dose: 100 mg Quetiapine Fumarate (Seroquel -) 200 mg PO HS [facility] Last Admin: 12/01/19 22:30 Dose: 200 mg Senna (Senna -) 2 tab PO HS PRN PRN Reason: CONSTIPATION Zolpidem Tartrate (Ambien -) 5 mg PO HS PRN PRN Reason: INSOMNIA Last Admin: 11/30/19 22:57 Dose: 5 mg - Objective Vital Signs: Vital Signs Temperature 98.4 F 02/04/20 06:00 Pulse Rate 67 02/04/20 06:00 Respiratory Rate 18 12/02/19 06:00 Blood Pressure 104/64 12/02/19 06:00 O2 Sat by Pulse Oximetry (%) 99 12/01/19 21:00 Constitutional: Yes: Well Nourished, No Distress, Calm Cardiovascular: Yes: Regular Rate and Rhythm Respiratory: Yes: Regular Gastrointestinal: Yes: Normal Bowel Sounds, Soft Genitourinary: Yes: WNL Musculoskeletal: Yes: Muscle Weakness (BLLE) Extremities: Yes: WNL Edema: No Peripheral Pulses WNL: Yes Neurological: Yes: Alert, Oriented, Loss of Sensation (BLLE, L>R), Numbness ( BLLE, L>R) Psychiatric: Yes: Alert, Oriented Labs: CBC, BMP 12/02/19 07:20 12/01/19 09:40 Assessment/Plan (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 Assessment/Plan: -Seroquel HS -Ambien prn Code(s): F51.05 - INSOMNIA DUE TO OTHER MENTAL DISORDER (2) Chronic back pain Assessment/Plan: -Neurosurgery consult -pain control -patient is s/p spinal fusion 3 wks ago at [facility] with Dr Mir -PT -fall precaution -Lumbar CT scan shows s/p posterior fusion of L4-S1 in satisfactory alignment , interbody spacer at L4-L5 level is in satisfactory position, interbody spacer at L5-S1 is slightly extending beyond the posterior margin of L5 verterbral body into the anterior aspect of the spinal canal, left transpedicular screw at S1 level is traversing along the left margin of the spinal canal just superior to left S1 nerve root, post op soft tissue swelling with subcutaneous edema and likely loculated serosanguinous fluid fluid present, significant degenerative disc disease L2-L3 and L3-L4 level and irregularity of the corresponding endplates again seen -Thoracic Spine CT scan shows no compression fracture or subluxation identified , intervertebral disc spaces are intact, multilevel degenerative disc disease, -Lumbar MRI:Status post posterior fusion L4-S1 with interbody devices, laminectomy, bone grafting.. Magnetic susceptible to artifacts from the metallic hardware limits evaluation of the neural foramina. Chronic degenerative discogenic disease at L2-L3 L3-4 with degenerative bone marrow changes. Multiple disc space narrowing -MRI C Spine:Straightening of the cervical spine with reversal curvature Multilevel posterior disc osteophyte complex encroaching on ventral subarachnoid space, Central spinal canal stenosis without cord compression, normal signal intensity of the spinal cord. -Restart Gabapentin 900 mg po TID -To OR for revision, pt in agreement Code(s): M54.9 - DORSALGIA, UNSPECIFIED; G89.29 - OTHER CHRONIC PAIN Qualifiers: Back pain location: low back pain Back pain laterality: bilateral (3) HTN (hypertension) Assessment/Plan: -Amlodipine, Clonidine, Losartan -low Na diet Code(s): I10 - ESSENTIAL (PRIMARY) HYPERTENSION (4) Fall Assessment/Plan: -patient is s/p spinal fusion 3 wks ago at [facility] with Dr Mir -PT -fall precaution -Lumbar CT scan shows s/p posterior fusion of L4-S1 in satisfactory alignment , interbody spacer at L4-L5 level is in satisfactory position, interbody spacer at L5-S1 is slightly extending beyond the posterior margin of L5 verterbral body into the anterior aspect of the spinal canal, left transpedicular screw at S1 level is traversing along the left margin of the spinal canal just superior to left S1 nerve root, post op soft tissue swelling with subcutaneous edema and likely loculated serosanguinous fluid fluid present, significant degenerative disc disease L2-L3 and L3-L4 level and irregularity of the corresponding endplates again seen -Thoracic Spine CT scan shows no compression fracture or subluxation identified , intervertebral disc spaces are intact, multilevel degenerative disc disease -C-spine CT scan shows the alignment is satisfactory, no gross fracture or subluxation is seen, multilevel degenerative disc disease -MRI C Spine:Straightening of the cervical spine with reversal curvature Multilevel posterior disc osteophyte complex encroaching on ventral subarachnoid space, Central spinal canal stenosis without cord compression, normal signal intensity of the spinal cord. -possible SNF on discharge for PT Code(s): W19.XXXA - UNSPECIFIED FALL, INITIAL ENCOUNTER (5) Seizure disorder Assessment/Plan: -Dilantin -dilantin level -seizure precaution Code(s): G40.909 - EPILEPSY, UNSP, NOT INTRACTABLE, WITHOUT STATUS EPILEPTICUS (6) Anemia Assessment/Plan: -Stool OB -Anemia profile unremarkable -transfuse for Hg <7.0 Code(s): D64.9 - ANEMIA, UNSPECIFIED Assessment/Plan Last Echo done 07/2019-no LVH, LVEF-70%+ mild aortic valve thickening see problem list dvt ppx Pt is medically cleared for surgery with acceptable OR risks
[2019-12-02] MEDS ORDERED: amLODIPine BESYLATE 5 MG TABLET (FP) PO SCH (10:29)
[2019-12-02 10:49] LABS: INR 0.96 (0.83-1.09); PROTHROMBIN TIME (PATIENT) 11.3 SEC (9.7-13.0)
[2019-12-02 10:51] LABS: ACTIVATED PTT 20.1 SECONDS (25.2-36.5)
[2019-12-02] MEDS ORDERED: LOSARTAN POTASSIUM 50 MG TABLET (FP) PO SCH (11:00)
[2019-12-02] MEDS ORDERED: GENTAMICIN SO4 80 MG/2 ML VIAL ONE (11:58)
[2019-12-02] MEDS ORDERED: THROMBIN (BOVINE) 20,000 UNIT VIAL TP ONE ×2 (11:59→12:00)
[2019-12-02] MEDS ORDERED: VANCOMYCIN 1,000 MG VIAL (RESTRICTED TO ID ONLY) ONE ×2 (11:59→13:28)
[2019-12-02] MEDS ORDERED: LIDOCAINE 1%-EPI 1:100,000 30 ML MDV IJ ONE (11:59)
[2019-12-02] MEDS ORDERED: PROPOFOL 20 ML ONE ×3 (12:15→16:15)
[2019-12-02] MEDS ORDERED: SUCCINYLCHOLINE CHLORIDE 200 MG/10 ML SYRINGE ONE (12:16)
[2019-12-02] MEDS ORDERED: MIDAZOLAM HCL 2 MG/2 ML SINGLE DOSE VIAL ONE (12:16)
[2019-12-02] MEDS ORDERED: BUPIVACAINE LIPOSOME/PF (EXPAREL) 266 MG/20 ML VIAL ONE (12:32)
[2019-12-02] MEDS ORDERED: ceFAZolin SODIUM 1 GM VIAL IVPB ONE (13:15)
[2019-12-02] MEDS ORDERED: ceFAZolin SODIUM 1 GM VIAL ONE ×2 (13:27→21:24)
[2019-12-02] MEDS ORDERED: ROCURONIUM BROMIDE 50 MG/5 ML SYRINGE ONE (13:30)
[2019-12-02] MEDS ORDERED: morphine SULFATE/PF 0.5 MG/ML (2cc Syringe - QUVA) ONE (13:32)
[2019-12-02] MEDS ORDERED: BUPIVACAINE HCL/PF 0.25% (2.5MG/ML) 10 ML VIAL ONE (13:50)
[2019-12-02] MEDS ORDERED: THROMBIN (BOVINE) 5,000 UNIT VIAL TP ONE (13:51)
[2019-12-02] MEDS ORDERED: KETAMINE HCL 200 MG/20 ML VIAL ONE (13:52)
[2019-12-02] MEDS ORDERED: HYDROmorphone HCl 2 MG/ML VIAL ONE (13:57)
[2019-12-02] MEDS ORDERED: ONDANSETRON 4 MG/2 ML VIAL ONE ×2 (13:58→21:03)
[2019-12-02] MEDS ORDERED: DEXAMETHASONE SOD PHOSPHATE 4 MG/1 ML VIAL ONE (13:58)
[2019-12-02] MEDS ORDERED: VANCOMYCIN 1,000 MG VIAL (RESTRICTED TO ID ONLY) IVPB ONE (13:59)
[2019-12-02] MEDS ORDERED: BUPIVACAINE LIPOSOME/PF (EXPAREL) 266 MG/20 ML VIAL NR ONE (14:05)
[2019-12-02] MEDS ORDERED: morphine SULFATE/PF 0.5 MG/ML (2cc Syringe - QUVA) SPIN ONE (14:06)
[2019-12-02] MEDS ORDERED: ePHEDrine SULFATE 50 MG/1 ML AMPULE ONE (14:19)
--- NOTE | 2019-12-02 16:38 | PN ---
Progress Note (short form) - Note Progress Note: Came to see patient at around 2pm, was in OR. Returned at 4:30pm, still in OR. Patient was medically cleared prior to surgery. She has a pertinent PMH of HTN, HLD, seizure disorder, non-obstx CAD with mild LAD myocardial bridge, no , EF 60% on cath 02/2011. Please call us as/if needed overnight. Otherwise, full post op consult to follow in AM.
[2019-12-02] MEDS ORDERED: ONDANSETRON 4 MG/2 ML VIAL IVPUSH PRN ×3 (16:40→17:38)
[2019-12-02] MEDS ORDERED: diphenhydrAMINE HCL 25 MG CAPSULE (FP) PO PRN ×2 (16:40→17:38)
[2019-12-02] MEDS ORDERED: oxyCODONE HCL 5 MG TABLET PO PRN ×2 (16:44)
[2019-12-02] MEDS ORDERED: NALOXONE HCL 0.4 MG/ML VIAL IVPUSH PRN ×3 (16:44→17:38)
[2019-12-02] MEDS ORDERED: LACTATED RINGERS SOLUTION 1,000 ML/1,000 ML INFUS.BAG IV SCH (16:45)
[2019-12-02] MEDS ORDERED: morphine SULFATE/PF 0.5 MG/ML (2cc Syringe - QUVA) IT ONE (16:54)
[2019-12-02] MEDS ORDERED: ACETAMINOPHEN 325 MG TABLET (FP) PO SCH (17:00)
[2019-12-02] MEDS ORDERED: ACETAMINOPHEN INJECTION 100 ML IVPB ONE (17:45)
[2019-12-02] MEDS ORDERED: diazePAM CARPU-JECT 10 MG/2 ML DISP.SYRIN ONE (17:46)
[2019-12-02] MEDS ORDERED: ACETAMINOPHEN 1000 MG/100 ML VIAL (NON FORMULARY) IVPB ONE (17:49)
[2019-12-02] MEDS ORDERED: diazePAM CARPU-JECT 10 MG/2 ML DISP.SYRIN IVPUSH ONE ×4 (17:55→18:14)
[2019-12-02 17:56] LABS: HEMATOCRIT 19.9 % (32.4-45.2); MCH 31.3 pg (25.7-33.7); MCHC 32.9 g/dl (32.0-36.0); MEAN CELL VOLUME 95.1 fl (80-96); MEAN PLT VOLUME 9.2 fl (7.5-11.1); PLATELET COUNT 264 K/MM3 (134-434); RDW 14.2 % (11.6-15.6); WHITE BLOOD COUNT 6.1 K/mm3 (4.0-10.0)
[2019-12-02 17:59] LABS: HEMOGLOBIN 6.6 GM/dL (10.7-15.3)
[2019-12-02] MEDS ORDERED: CEFAZOLIN 1 GM/D5W 1 GM/50 ML BAG IVPB SCH (18:00)
[2019-12-02] MEDS ORDERED: PT OWN MED DRAWER 7, Y5N ONE (20:12)
[2019-12-02] MEDS: CEFAZOLIN 1 GM in DEXTROSE 5%-WATER - 50 ML IVPB SCH (21:31)
[2019-12-02] MEDS ORDERED: HEPARIN NA (PORCINE) 5,000 UNITS/ML 1ML VIAL SQ SCH (22:00)
[2019-12-02] MEDS ORDERED: DOCUSATE SODIUM 100 MG CAPSULE (FP) PO SCH (22:00)
[2019-12-02] MEDS ORDERED: oxyCODONE HCL 10 MG SUSTAINED ACTING TABLET PO SCH (22:00)
[2019-12-02] MEDS: DOCUSATE SODIUM 100 MG CAPSULE (FP) PO SCH (23:45)
[2019-12-03] MEDS: GABAPENTIN 300 MG CAPSULE PO SCH ×4 (00:06→22:03)
[2019-12-03] MEDS: BACLOFEN 10 MG TABLET (FP) PO SCH ×4 (00:07→22:03)
[2019-12-03] MEDS: cloNIDine HCL 0.1 MG TABLET PO SCH ×4 (00:07→22:03)
[2019-12-03] MEDS: PHENYTOIN NA EXTENDED 100 MG CAPSULE (FP) PO SCH ×4 (00:08→22:03)
[2019-12-03] MEDS: ZOLPIDEM TARTRATE 5 MG TABLET PO PRN ×2 (00:08→22:03)
[2019-12-03] MEDS: HEPARIN NA (PORCINE) 5,000 UNITS/ML 1ML VIAL SQ SCH ×4 (00:11→22:03)
[2019-12-03] MEDS: QUEtiapine FUMARATE 200 MG TABLET PO SCH ×2 (00:51→22:03)
[2019-12-03] MEDS ORDERED: ceFAZolin SODIUM 1 GM VIAL ONE ×3 (03:12→17:21)
[2019-12-03] MEDS ORDERED: DEXTROSE 5%-WATER - 50 ML IVPB ONE ×3 (03:12→17:21)
[2019-12-03] MEDS: oxyCODONE HCL 5 MG TABLET PO PRN ×5 (03:17→22:05)
[2019-12-03] MEDS: CEFAZOLIN 1 GM in DEXTROSE 5%-WATER - 50 ML IVPB SCH ×3 (03:44→17:28)
[2019-12-03] MEDS: LACTATED RINGERS SOLUTION 1,000 ML/1,000 ML INFUS.BAG IV SCH ×2 (03:47→17:33)
[2019-12-03] MEDS: DOCUSATE SODIUM 100 MG CAPSULE (FP) PO SCH ×3 (06:40→22:03)
[2019-12-03] MEDS ORDERED: FERROUS SO4 325 MG TABLET (FP) PO SCH (08:00)
[2019-12-03 08:07] LABS: HEMATOCRIT 25.2 % (32.4-45.2); HEMOGLOBIN 8.5 GM/dL (10.7-15.3); MCH 31.3 pg (25.7-33.7); MCHC 33.9 g/dl (32.0-36.0); MEAN CELL VOLUME 92.2 fl (80-96); PLATELET COUNT 207 K/MM3 (134-434); RBC 2.73 M/mm3 (3.60-5.2); RDW 15.4 % (11.6-15.6); WHITE BLOOD COUNT 7.5 K/mm3 (4.0-10.0)
[2019-12-03 08:24] LABS: BLOOD UREA NITROGEN 10.1 mg/dL (7-18); CREATININE 0.6 mg/dL (0.55-1.3); POTASSIUM 3.9 mmol/L (3.5-5.1)
--- NOTE | 2019-12-03 08:25 | OP ---
Operative Note - Note: Operative Date: 12/02/19 Pre-Operative Diagnosis: Lumbar spondylosis with suboptimal screw Operation: Exploration of spinal fusion with removal of major hardware with L2- L3, L3/4 decompression and interbody arthrodesis with revision L2-S1 Post-Operative Diagnosis: Same as Pre-op Surgeon: Rakan Whitley Systems Project Manager: Zeyad Andres Anesthesiologist/CHEMICAL PROCESSING EQUIPMENT REPAIRER: Gato Palacio Anesthesia: General Estimated Blood Loss (mls): 1,000 Fluid Volume Replaced (mls): 1,500 Operative Report Dictated: Yes
--- NOTE | 2019-12-03 08:38 | PN ---
Progress Note (short form) - Note Progress Note: Neurosurgery 64yo F s/p L4-S1 exploration and hardware reinsertion, with L2-L4 PLIF, POD 1. Pt seen and examined at bedside. Pt currently on pulse ox because of Duramorph injection. Pt received 2 units prbcs due to blood loss and hgb of 6.6. Pt denies any dizziness or weakness this morning. Pt complaining of some mild back pain. Denies leg weakness or numbness. Pt denies fever, chills, cp, sob. Vital Signs Temp 97 F L 12/03/19 06:44 Pulse 85 12/03/19 06:44 Resp 20 12/03/19 06:44 BP 146/79 12/03/19 06:44 Pulse Ox 100 12/03/19 00:15 Intake & Output 12/02/19 12/02/19 12/03/19 11:59 23:59 11:59 Intake Total 10 2430 1105 Output Total 2635 100 Balance 10 -205 1005 Intake: IV 2049 475 LACTATED RINGERS SOLUTION 375 1,000 ml In 1,000 ml @ 125 mls/hr IV ASDIR SOURAV Rx#:[id number] saline lock 100 IVPB 100 Oral 10 30 180 Blood Product 350 Packed Cells 350 Output: Drainage 135 100 Left Back 100 Urine 1500 Hawley 100 Estimated Blood Loss 1000 Other: Voiding Method Toilet # Unmeasured Voids Void 2 Bowel Movement No CBC, BMP 12/03/19 05:48 12/03/19 05:48 PE: Gen: A&O x3 Resp: breathing comfortably Back: dressing clean, drain in place with serosanguinous drainage. Ext: no weakness or numbness. Problem List - Problems (1) S/P lumbar fusion Assessment/Plan: Plan -pt hgb appears to have appropriately bumped from transfusion, no symptoms of anemia, and vitals stable. -pt may be transferred to non monitored bed after 4pm today 12/03/19 as duramorph coverage should have worn off, until then pain management per anesthesia. -oob/ambulate with PT -dvt ppx Pt discussed with Dr. Whitley, who agrees with plan Code(s): Z98.1 - ARTHRODESIS STATUS
[2019-12-03] MEDS ORDERED: FOLIC ACID 1 MG TABLET (FP) PO SCH (10:00)
[2019-12-03] MEDS ORDERED: POLYETHYLENE GLYCOL 3350 119 GM BTL PO SCH (10:00)
[2019-12-03] MEDS: POLYETHYLENE GLYCOL 3350 119 GM BTL PO SCH (10:13)
[2019-12-03] MEDS: ASPIRIN COATED 81 MG TABLET.EC PO SCH (10:14)
[2019-12-03] MEDS: FERROUS SO4 325 MG TABLET (FP) PO SCH (10:14)
[2019-12-03] MEDS: amLODIPine BESYLATE 5 MG TABLET (FP) PO SCH (10:14)
[2019-12-03] MEDS: FOLIC ACID 1 MG TABLET (FP) PO SCH (10:14)
[2019-12-03] MEDS: LOSARTAN POTASSIUM 50 MG TABLET (FP) PO SCH (10:14)
--- NOTE | 2019-12-03 11:46 | PN ---
Progress Note, Physician Chief Complaint: S/p Fall Lower Back Pain History of Present Illness: Previous notes and events reviewed awake and alert NAD POD #1 L4-S1 exploration and hardware reinsertion, L2-L4 PLIF complain of back pain after ambulating with PT denies chest pain, SOB, palpitations - Current Medication List Current Medications: Active Medications Acetaminophen (Tylenol -) 650 mg PO Q4H PRN PRN Reason: PAIN Amlodipine Besylate (Norvasc -) 5 mg PO DAILY [facility] Last Admin: 12/03/19 10:14 Dose: 5 mg Aspirin (Ecotrin -) 81 mg PO DAILY [facility] Last Admin: 12/03/19 10:14 Dose: 81 mg Baclofen (Lioresal -) 10 mg PO TID [facility] Last Admin: 12/03/19 06:39 Dose: 10 mg Clonidine (Catapres -) 0.1 mg PO TID [facility] Last Admin: 12/03/19 06:39 Dose: 0.1 mg Diphenhydramine HCl (Benadryl Injection -) 25 mg IVPUSH ONCE PRN PRN Reason: FOR ITCHING Diphenhydramine HCl (Benadryl -) 25 mg PO Q6H PRN PRN Reason: FOR ITCHING Docusate Sodium (Colace -) 100 mg PO TID [facility] Last Admin: 12/03/19 06:40 Dose: 100 mg Ferrous Sulfate (Feosol -) 325 mg PO DAILY [facility] Last Admin: 12/03/19 10:14 Dose: 325 mg Folic Acid (Folic Acid -) 1 mg PO DAILY [facility] Last Admin: 12/03/19 10:14 Dose: 1 mg Gabapentin (Neurontin -) 900 mg PO TID [facility] Last Admin: 12/03/19 06:39 Dose: 900 mg Heparin Sodium (Porcine) (Heparin -) 5,000 unit SQ TID [facility] Last Admin: 12/03/19 07:15 Dose: 5,000 unit Cefazolin Sodium 1 gm/ (Dextrose) 50 mls @ 100 mls/hr IVPB Q8H-IV [facility] Last Admin: 12/03/19 10:13 Dose: 100 mls/hr Lactated Ringer's (Lactated Ringers Solution) 1,000 ml in 1,000 mls @ 125 mls/ hr IV ASDIR [facility] Last Admin: 12/03/19 03:47 Dose: 125 mls/hr Losartan Potassium (Cozaar -) 50 mg PO DAILY [facility] Last Admin: 12/03/19 10:14 Dose: 50 mg Naloxone HCl (Narcan -) 0.4 mg IVPUSH ONCE PRN PRN Reason: Sedation Ondansetron HCl (Zofran Injection) 4 mg IVPUSH ONCE PRN PRN Reason: NAUSEA Last Admin: 12/02/19 21:00 Dose: 4 mg Ondansetron HCl (Zofran Injection) 4 mg IVPUSH Q6H PRN PRN Reason: NAUSEA Oxycodone HCl (Roxicodone -) 5 mg PO Q3H PRN PRN Reason: Mild Pain 1-3 Oxycodone HCl (Roxicodone -) 10 mg PO Q3H PRN PRN Reason: Moderate Pain 4-6 Last Admin: 12/03/19 10:16 Dose: 10 mg Phenytoin Sodium (Dilantin -) 100 mg PO TID [facility] Last Admin: 12/03/19 06:39 Dose: 100 mg Polyethylene Glycol (Miralax (For Daily Use) -) 17 gm PO DAILY [facility] Last Admin: 12/03/19 10:13 Dose: 17 gm Quetiapine Fumarate (Seroquel -) 200 mg PO HS [facility] Last Admin: 12/03/19 00:51 Dose: 200 mg Senna (Senna -) 2 tab PO HS PRN PRN Reason: CONSTIPATION Zolpidem Tartrate (Ambien -) 5 mg PO HS PRN PRN Reason: INSOMNIA Last Admin: 12/03/19 00:08 Dose: 5 mg - Objective Vital Signs: Vital Signs Temperature 97 F L 12/03/19 06:44 Pulse Rate 85 12/03/19 06:44 Respiratory Rate 20 12/03/19 06:44 Blood Pressure 146/79 12/03/19 06:44 O2 Sat by Pulse Oximetry (%) 100 12/03/19 00:15 Constitutional: Yes: No Distress, Calm Eyes: Yes: Conjunctiva Clear HENT: Yes: Atraumatic Cardiovascular: Yes: Regular Rate and Rhythm Respiratory: Yes: Regular, CTA Bilaterally Gastrointestinal: Yes: Normal Bowel Sounds, Soft Musculoskeletal: Yes: Back Pain, Muscle Weakness Extremities: Yes: WNL Edema: No Neurological: Yes: Alert, Oriented Psychiatric: Yes: Alert, Oriented Labs: CBC, BMP 12/03/19 05:48 02/05/20 05:48 INR, PTT INR 0.96 (0.83-1.09) 12/02/19 09:43 Problem List - Problems (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 with Dr Mir -PT -fall precaution -Lumbar CT scan shows s/p posterior fusion of L4-S1 in satisfactory alignment , interbody spacer at L4-L5 level is in satisfactory position, interbody spacer at L5-S1 is slightly extending beyond the posterior margin of L5 verterbral body into the anterior aspect of the spinal canal, left transpedicular screw at S1 level is traversing along the left margin of the spinal canal just superior to left S1 nerve root, post op soft tissue swelling with subcutaneous edema and likely loculated serosanguinous fluid fluid present, significant degenerative disc disease L2-L3 and L3-L4 level and irregularity of the corresponding endplates again seen -Thoracic Spine CT scan shows no compression fracture or subluxation identified , intervertebral disc spaces are intact, multilevel degenerative disc disease, -MRI C-spine shows straihtening of cervical spine with reversal curvature, multilevel disc osteophyte complex enroaching on ventral subarachnoid space, central spinal canal stenosis without cord compression, normal signal intensity of spinal cord -MRI Lumbar Spine shows no evidence of central spinal canal stenosis, s/p L4-S1 fusion with interbody devices, laminectomy, bone grafting, magnetic susceptible to aritfact from metallic hardware limit eval of neural foramina, chronic degenerative discogenic disease L2-L4 with degenerative bone marrow changes -POD #1 L4-S1 exploration and hardware reinsertion, L2-L4 PLIF Code(s): M54.9 - DORSALGIA, UNSPECIFIED; G89.29 - OTHER CHRONIC PAIN Qualifiers: Back pain location: low back pain Back pain laterality: bilateral (3) HTN (hypertension) Assessment/Plan: -Amlodipine, Clonidine, Losartan -low Na diet Code(s): I10 - ESSENTIAL (PRIMARY) HYPERTENSION (4) Fall Assessment/Plan: -patient is s/p spinal fusion 3 wks ago at [facility] with Dr Mir -PT -fall precaution -Lumbar CT scan shows s/p posterior fusion of L4-S1 in satisfactory alignment , interbody spacer at L4-L5 level is in satisfactory position, interbody spacer at L5-S1 is slightly extending beyond the posterior margin of L5 verterbral body into the anterior aspect of the spinal canal, left transpedicular screw at S1 level is traversing along the left margin of the spinal canal just superior to left S1 nerve root, post op soft tissue swelling with subcutaneous edema and likely loculated serosanguinous fluid fluid present, significant degenerative disc disease L2-L3 and L3-L4 level and irregularity of the corresponding endplates again seen -Thoracic Spine CT scan shows no compression fracture or subluxation identified , intervertebral disc spaces are intact, multilevel degenerative disc disease -C-spine CT scan shows the alignment is satisfactory, no gross fracture or subluxation is seen, multilevel degenerative disc disease -possible SNF on discharge for PT Code(s): W19.XXXA - UNSPECIFIED FALL, INITIAL ENCOUNTER (5) Seizure disorder Assessment/Plan: -Dilantin -dilantin level -seizure precaution Code(s): G40.909 - EPILEPSY, UNSP, NOT INTRACTABLE, WITHOUT STATUS EPILEPTICUS (6) Anemia Assessment/Plan: -Hg 8.5 -s/p 2U PRBC blood transfusion -Stool OB -Anemia profile shows normal Iron, low TIBC, normal Iron Sat -transfuse for Hg <8.0 Code(s): D64.9 - ANEMIA, UNSPECIFIED Assessment/Plan see problem list dvt ppx will need SNF for discharge for PT
--- NOTE | 2019-12-03 12:16 | CON.CARD ---
Cardiology Consult (text) - Consultation Consultation Note: Consult Specialty:: Cardiology Referred by:: Medicine Reason for Consultation:: palpitations - History of Present Illness Chief Complaint: palpitations History of Present Illness: 64F h/o HTN, asthma, colitis p/w back pain s/p lumbar surgery yesterday, no complications. Complains of palps, PVCs on EKG. . No chest pain, dizziness, dyspnea. Feels skipped beats that are strong. 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: Yes: Migraine, Peripheral Neuropathy (mostly left foot from back problems) , Seizure, Syncope Cardio/Vascular: Yes: CAD (Non-obstructive with myocardial bridge), HTN, Hyperlipdemia Gastrointestinal: Yes: Constipation ...: No Musculoskeletal: Yes: Chronic low back pain, Osteoarthritis - Past Surgical History Past Surgical History: Yes: Appendectomy, Colonoscopy (years ago), Joint Replacement (bilateral knees) - Alcohol/Substance Use Hx Alcohol Use: No History of Substance Use: reports: Marijuana (in past, on occasion, last few months ago (planning to get medical card)) - Smoking History Smoking history: Never smoked Have you smoked in the past 12 months: No Aproximately how many cigarettes per day: 0 If you are a former smoker, when did you quit?: 2002 - smoked 1ppwk for about 10 yrs - Social History ADL: Independent History of Recent Travel: No Home Medications - Allergies Allergies/Adverse Reactions: Allergies Allergy/AdvReac Type Severity Reaction Status Date / Time No Known Allergies Allergy Verified 11/29/19 10:43 Ambulatory Orders Amlodipine Besylate [Norvasc -] 10 mg PO DAILY #30 tablet 03/27/17 Phenytoin Na Extended [Dilantin -] 100 mg PO TID #0 cap 09/14/17 Zolpidem Tartrate [Ambien] 10 mg PO HS PRN tablet MDD 1 09/14/17 Quetiapine Fumarate [Seroquel -] 200 tab PO HS 12/31/17 cloNIDine HCL [Catapres -] 0.1 mg PO TID 12/31/17 Aspirin [Aspirin EC] 1 tab PO DAILY 11/29/19 Losartan Potassium [Cozaar] 100 mg PO DAILY 11/29/19 Gabapentin [Neurontin] 800 mg PO TID 11/30/19 Family Medical History Family History: Unremarkable Review of Systems - Review of Systems Constitutional: reports: No Symptoms Eyes: reports: No Symptoms HENT: reports: No Symptoms Neck: reports: No Symptoms Cardiovascular: reports: No Symptoms Respiratory: reports: No Symptoms Gastrointestinal: reports: No Symptoms Genitourinary: reports: No Symptoms Musculoskeletal: reports: No Symptoms Integumentary: reports: No Symptoms Neurological: reports: No Symptoms Endocrine: reports: No Symptoms Hematology/Lymphatic: reports: No Symptoms Psychiatric: reports: No Symptoms Vital Signs Period Temp Pulse Resp BP Sys/Blackburn Pulse Ox Last 24 Hr 97 F-98.8 F 85-122 10-23 112-147/63-93 97-100 Constitutional: Yes: No Distress, Calm Eyes: Yes: Conjunctiva Clear, EOM Intact HENT: Yes: Atraumatic, Normocephalic Neck: Yes: Supple, Trachea Midline Respiratory: Yes: Regular, CTA Bilaterally Gastrointestinal: Yes: Normal Bowel Sounds, Soft Cardiovascular: Yes: Regular Rate and Rhythm JVD: No Heart Sounds: Yes: S1, S2 Extremities: No: Cold Edema: No Integumentary: No: Jaundice Neurological: Yes: Alert, Oriented Psychiatric: No: Agitated Assessment/Plan echo 2018 nl LV/RV function echo 07/2019 nl LV function EKG: sinus, PVCs tele: sinus back pain, s/p lumbar surgery L4-S1 exploration and hardware reinsertion, L2-L4 PLIF - manage per surgery anemia - monitor H/H, transfuse per surgery Palpitations, PVCs - PVCs noted on EKG - nl EF on recent echo - monitoring on tele post op - stable - replete lytes for K>4, Mg >2 HTN - cont current meds non-obstx CAD - cath 02/2011 with mild LAD myocardial bridge, no , EF 60% - cont aspirin
[2019-12-03] MEDS ORDERED: MORPHINE SULFATE 2 MG/ML VIAL IVPUSH PRN (13:50)
[2019-12-03] MEDS: diazePAM 5 MG TABLET PO SCH ×2 (14:28→22:03)
[2019-12-03] MEDS: oxyCODONE HCL 10 MG SUSTAINED ACTING TABLET PO SCH ×2 (14:28→22:04)
--- NOTE | 2019-12-03 15:13 | PN ---
Progress Note (short form) - Note Progress Note: Anesthesia POD#1 S/P Lumbar Fusion under GA and Intrathecal exparel VSS, pain is not fully controlled. vomiting twice controlled with Zofran. Pain meds are revised today. Sparkle Alvarado MD.
[2019-12-03] MEDS ORDERED: oxyCODONE HCL 10 MG SUSTAINED ACTING TABLET PO SCH ×2 (16:44→22:00)
[2019-12-03] MEDS ORDERED: ACETAMINOPHEN 325 MG TABLET (FP) PO PRN (17:08)
[2019-12-03] MEDS: ACETAMINOPHEN 325 MG TABLET (FP) PO PRN (17:28)
[2019-12-03] MEDS ORDERED: diazePAM 5 MG TABLET PO SCH (22:00)
[2019-12-04] MEDS ORDERED: ceFAZolin SODIUM 1 GM VIAL ONE ×3 (01:06→17:42)
[2019-12-04] MEDS ORDERED: DEXTROSE 5%-WATER - 50 ML IVPB ONE ×3 (01:06→17:43)
[2019-12-04] MEDS: CEFAZOLIN 1 GM in DEXTROSE 5%-WATER - 50 ML IVPB SCH ×3 (01:15→17:44)
[2019-12-04] MEDS: cloNIDine HCL 0.1 MG TABLET PO SCH ×3 (06:38→22:29)
[2019-12-04] MEDS: GABAPENTIN 300 MG CAPSULE PO SCH ×3 (06:38→22:30)
[2019-12-04] MEDS: HEPARIN NA (PORCINE) 5,000 UNITS/ML 1ML VIAL SQ SCH ×3 (06:38→22:32)
[2019-12-04] MEDS: DOCUSATE SODIUM 100 MG CAPSULE (FP) PO SCH ×3 (06:39→22:30)
[2019-12-04] MEDS: BACLOFEN 10 MG TABLET (FP) PO SCH ×3 (06:39→22:30)
[2019-12-04] MEDS: PHENYTOIN NA EXTENDED 100 MG CAPSULE (FP) PO SCH ×3 (06:39→22:29)
[2019-12-04] MEDS: oxyCODONE HCL 5 MG TABLET PO PRN ×3 (06:39→20:08)
[2019-12-04 07:33] LABS: HEMATOCRIT 25.7 % (32.4-45.2); HEMOGLOBIN 8.9 GM/dL (10.7-15.3); MCH 31.8 pg (25.7-33.7); MCHC 34.7 g/dl (32.0-36.0); MEAN CELL VOLUME 91.5 fl (80-96); MEAN PLT VOLUME 9.9 fl (7.5-11.1); PLATELET COUNT 183 K/MM3 (134-434); RBC 2.81 M/mm3 (3.60-5.2); RDW 15.1 % (11.6-15.6); WHITE BLOOD COUNT 10.3 K/mm3 (4.0-10.0)
[2019-12-04 08:25] LABS: ALBUMIN 2.3 g/dl (3.4-5.0); BILIRUBIN,TOTAL 0.4 mg/dL (0.2-1); BLOOD UREA NITROGEN 5.3 mg/dL (7-18); CALCIUM 8.2 mg/dL (8.5-10.1); CREATININE 0.5 mg/dL (0.55-1.3); POTASSIUM 3.5 mmol/L (3.5-5.1); TOT PROT 5.3 g/dl (6.4-8.2)
--- NOTE | 2019-12-04 08:26 | PN ---
Progress Note (short form) - Note Progress Note: Neurosurgery 64yo F s/p L4-S1 exploration and hardware reinsertion, with L2-L4 PLIF, POD 2. Pt seen and examined at bedside. Pt complains of lumbar pain, but states she has been getting her pain medications regularly. Denies leg weakness or numbness. Pt spoke fever 102 yesterday evening, since then afebrile, Pt denies chills, cp, sob. Pt ambulated a little bit with PT yesterday, but states was limited due to pain. Last Vital Signs Temp Pulse Resp BP Pulse Ox 99.1 F 104 H 19 158/88 94 L 12/04/19 06:00 12/04/19 06:00 12/04/19 06:00 12/04/19 06:00 12/03/19 21:00 CBC, BMP 12/04/19 06:20 PE: Gen: A&O x3 Resp: breathing comfortably Back: dressing clean, drain in place with serosanguinous drainage. Ext: no weakness or numbness. Problem List - Problems (1) S/P lumbar fusion Assessment/Plan: Plan -pain control -OOB/ambulate with PT -monitor drain output -most likely need acute rehab placement Pt discussed with Dr. Whitley, who agrees with plan Code(s): Z98.1 - ARTHRODESIS STATUS (2) Acute blood loss as cause of postoperative anemia Assessment/Plan: -given 2 units pRBCs on POD 0 -trend H/H Code(s): D62 - ACUTE POSTHEMORRHAGIC ANEMIA
[2019-12-04] MEDS ORDERED: PT OWN MED DRAWER 7, Y5N ONE (09:53)
[2019-12-04] MEDS: oxyCODONE HCL 10 MG SUSTAINED ACTING TABLET PO SCH ×2 (10:02→22:31)
[2019-12-04] MEDS: FERROUS SO4 325 MG TABLET (FP) PO SCH (10:02)
[2019-12-04] MEDS: amLODIPine BESYLATE 5 MG TABLET (FP) PO SCH (10:02)
[2019-12-04] MEDS: FOLIC ACID 1 MG TABLET (FP) PO SCH (10:02)
[2019-12-04] MEDS: LOSARTAN POTASSIUM 50 MG TABLET (FP) PO SCH (10:03)
[2019-12-04] MEDS: ASPIRIN COATED 81 MG TABLET.EC PO SCH (10:04)
[2019-12-04] MEDS: diazePAM 5 MG TABLET PO SCH ×2 (10:08→22:29)
[2019-12-04] MEDS: POLYETHYLENE GLYCOL 3350 119 GM BTL PO SCH (10:09)
--- NOTE | 2019-12-04 11:00 | PN ---
Progress Note (short form) - Note Progress Note: s: no cp sob palps dizzy Current Medications Generic Name Dose Route Start Last Admin Trade Name Freq PRN Reason Stop Dose Admin Acetaminophen 650 mg 12/02/19 17:38 12/03/19 17:28 Tylenol - PO 650 mg Q4H PRN Administration PAIN Acetaminophen 650 mg 12/03/19 17:08 Tylenol - PO Q6H PRN FEVER Amlodipine Besylate 5 mg 12/03/19 10:00 12/04/19 10:02 Norvasc - PO 5 mg DAILY SOURAV Administration Aspirin 81 mg 12/03/19 10:00 12/04/19 10:04 Ecotrin - PO 81 mg DAILY SOURAV Administration Baclofen 10 mg 12/02/19 22:00 12/04/19 06:39 Lioresal - PO 10 mg TID SOURAV Administration Clonidine 0.1 mg 12/02/19 22:00 12/04/19 06:38 Catapres - PO 0.1 mg TID SOURAV Administration Diazepam 5 mg 12/03/19 14:30 12/04/19 10:08 Valium - PO 5 mg BID SOURAV Administration Diphenhydramine HCl 25 mg 12/02/19 17:38 Benadryl Injection - IVPUSH ONCE PRN FOR ITCHING Diphenhydramine HCl 25 mg 12/02/19 17:38 Benadryl - PO Q6H PRN FOR ITCHING Docusate Sodium 100 mg 12/02/19 22:00 12/04/19 06:39 Colace - PO 100 mg TID SOURAV Administration Ferrous Sulfate 325 mg 12/03/19 10:00 12/04/19 10:02 Feosol - PO 325 mg DAILY SOURAV Administration Folic Acid 1 mg 12/03/19 10:00 12/04/19 10:02 Folic Acid - PO 1 mg DAILY SOURAV Administration Gabapentin 900 mg 12/02/19 22:00 12/04/19 06:38 Neurontin - PO 900 mg TID SOURAV Administration Heparin Sodium (Porcine) 5,000 unit 12/03/19 00:45 12/04/19 06:38 Heparin - SQ 5,000 unit TID SOURAV Administration Cefazolin Sodium 1 gm/ 50 mls @ 100 mls/hr 12/02/19 18:00 12/04/19 10:01 Dextrose IVPB 100 mls/hr Q8H-IV SOURAV Administration Lactated Ringer's 1,000 ml in 1,000 mls @ 125 mls/hr 12/02/19 17:38 12/03/19 17:33 Lactated Ringers Solution IV 125 mls/hr ASDIR SOURAV Administration Losartan Potassium 50 mg 12/03/19 10:00 12/04/19 10:03 Cozaar - PO 50 mg DAILY SOURAV Administration Morphine Sulfate 2 mg 12/03/19 13:50 Morphine Sulfate IVPUSH Q3H PRN PAIN LEVEL 7 - 10 Naloxone HCl 0.4 mg 12/02/19 17:38 Narcan - IVPUSH ONCE PRN Sedation Ondansetron HCl 4 mg 12/02/19 16:54 12/02/19 21:00 Zofran Injection IVPUSH 4 mg ONCE PRN Administration NAUSEA Ondansetron HCl 4 mg 12/02/19 17:38 12/03/19 13:10 Zofran Injection IVPUSH 4 mg Q6H PRN Administration NAUSEA Oxycodone HCl 5 mg 12/02/19 16:54 Roxicodone - PO Q3H PRN Mild Pain 1-3 Oxycodone HCl 10 mg 12/03/19 14:30 12/04/19 10:02 Oxycontin - PO 10 mg BID SOURAV Administration Phenytoin Sodium 100 mg 12/02/19 22:00 12/04/19 06:39 Dilantin - PO 100 mg TID SOURAV Administration Polyethylene Glycol 17 gm 12/03/19 10:00 12/04/19 10:09 Miralax (For Daily Use) - PO 17 gm DAILY SOURAV Administration Quetiapine Fumarate 200 mg 12/02/19 22:00 12/03/19 22:03 Seroquel - PO 200 mg HS SOURAV Administration Senna 2 tab 12/02/19 17:38 Senna - PO HS PRN CONSTIPATION Zolpidem Tartrate 5 mg 12/02/19 17:38 12/03/19 22:03 Ambien - PO 5 mg HS PRN Administration INSOMNIA Vital Signs Period Temp Pulse Resp BP Sys/Blackburn Pulse Ox Last 24 Hr 99 F-102.1 F 86-104 17-20 123-160/65-91 94-98 Constitutional: Yes: No Distress, Calm Eyes: Yes: Conjunctiva Clear Neck: Yes: Supple, Trachea Midline Respiratory: Yes: Regular, CTA Bilaterally Gastrointestinal: Yes: Normal Bowel Sounds, Soft Cardiovascular: Yes: Regular Rate and Rhythm JVD: No Heart Sounds: Yes: S1, S2 Extremities: No: Cold Edema: No Integumentary: No: Jaundice Neurological: Yes: Alert, Oriented Psychiatric: No: Agitated CBC, BMP 12/04/19 06:20 12/04/19 06:20 Assessment/Plan echo 2018 nl LV/RV function echo 07/2019 nl LV function EKG: sinus, PVCs tele: sinus back pain, s/p lumbar surgery L4-S1 exploration and hardware reinsertion, L2-L4 PLIF - manage per surgery anemia - monitor H/H, transfuse per surgery Palpitations, PVCs - PVCs noted on EKG - nl EF on recent echo - tele benign HTN - cont current meds non-obstx CAD - cath 02/2011 with mild LAD myocardial bridge, no , EF 60% - cont aspirin
--- NOTE | 2019-12-04 11:54 | PN ---
Progress Note, Physician Chief Complaint: AWAKE ALERT IN TELE NO ACUTE CARDIAC CHANGES PATIENT IS PAIN 7/10 INTENSITY EVENTS AND NOTES REVIEWED POD #2 LUMBAR SURGERY - Current Medication List Current Medications: Active Medications Acetaminophen (Tylenol -) 650 mg PO Q4H PRN PRN Reason: PAIN Last Admin: 12/03/19 17:28 Dose: 650 mg Acetaminophen (Tylenol -) 650 mg PO Q6H PRN PRN Reason: FEVER Amlodipine Besylate (Norvasc -) 5 mg PO DAILY [facility] Last Admin: 12/04/19 10:02 Dose: 5 mg Aspirin (Ecotrin -) 81 mg PO DAILY [facility] Last Admin: 12/04/19 10:04 Dose: 81 mg Baclofen (Lioresal -) 10 mg PO TID [facility] Last Admin: 12/04/19 06:39 Dose: 10 mg Clonidine (Catapres -) 0.1 mg PO TID [facility] Last Admin: 12/04/19 06:38 Dose: 0.1 mg Diazepam (Valium -) 5 mg PO BID [facility] Last Admin: 12/04/19 10:08 Dose: 5 mg Diphenhydramine HCl (Benadryl Injection -) 25 mg IVPUSH ONCE PRN PRN Reason: FOR ITCHING Diphenhydramine HCl (Benadryl -) 25 mg PO Q6H PRN PRN Reason: FOR ITCHING Docusate Sodium (Colace -) 100 mg PO TID [facility] Last Admin: 12/04/19 06:39 Dose: 100 mg Ferrous Sulfate (Feosol -) 325 mg PO DAILY [facility] Last Admin: 12/04/19 10:02 Dose: 325 mg Folic Acid (Folic Acid -) 1 mg PO DAILY [facility] Last Admin: 12/04/19 10:02 Dose: 1 mg Gabapentin (Neurontin -) 900 mg PO TID [facility] Last Admin: 12/04/19 06:38 Dose: 900 mg Heparin Sodium (Porcine) (Heparin -) 5,000 unit SQ TID [facility] Last Admin: 12/04/19 06:38 Dose: 5,000 unit Cefazolin Sodium 1 gm/ (Dextrose) 50 mls @ 100 mls/hr IVPB Q8H-IV [facility] Last Admin: 12/04/19 10:01 Dose: 100 mls/hr Lactated Ringer's (Lactated Ringers Solution) 1,000 ml in 1,000 mls @ 125 mls/ hr IV ASDIR [facility] Last Admin: 12/03/19 17:33 Dose: 125 mls/hr Losartan Potassium (Cozaar -) 50 mg PO DAILY [facility] Last Admin: 12/04/19 10:03 Dose: 50 mg Morphine Sulfate (Morphine Sulfate) 2 mg IVPUSH Q3H PRN PRN Reason: PAIN LEVEL 7 - 10 Naloxone HCl (Narcan -) 0.4 mg IVPUSH ONCE PRN PRN Reason: Sedation Ondansetron HCl (Zofran Injection) 4 mg IVPUSH ONCE PRN PRN Reason: NAUSEA Last Admin: 12/02/19 21:00 Dose: 4 mg Ondansetron HCl (Zofran Injection) 4 mg IVPUSH Q6H PRN PRN Reason: NAUSEA Last Admin: 12/03/19 13:10 Dose: 4 mg Oxycodone HCl (Roxicodone -) 5 mg PO Q3H PRN PRN Reason: Mild Pain 1-3 Oxycodone HCl (Oxycontin -) 10 mg PO BID [facility] Last Admin: 12/04/19 10:02 Dose: 10 mg Phenytoin Sodium (Dilantin -) 100 mg PO TID [facility] Last Admin: 12/04/19 06:39 Dose: 100 mg Polyethylene Glycol (Miralax (For Daily Use) -) 17 gm PO DAILY [facility] Last Admin: 12/04/19 10:09 Dose: 17 gm Quetiapine Fumarate (Seroquel -) 200 mg PO HS [facility] Last Admin: 12/03/19 22:03 Dose: 200 mg Senna (Senna -) 2 tab PO HS PRN PRN Reason: CONSTIPATION Zolpidem Tartrate (Ambien -) 5 mg PO HS PRN PRN Reason: INSOMNIA Last Admin: 12/03/19 22:03 Dose: 5 mg - Objective Vital Signs: Vital Signs Temperature 99.1 F 12/04/19 06:00 Pulse Rate 95 H 12/04/19 10:00 Respiratory Rate 20 12/04/19 10:00 Blood Pressure 160/88 12/04/19 10:00 O2 Sat by Pulse Oximetry (%) 98 12/04/19 08:25 Constitutional: Yes: Moderate Distress Cardiovascular: Yes: Regular Rate and Rhythm Respiratory: Yes: CTA Bilaterally Gastrointestinal: Yes: Soft Musculoskeletal: Yes: Muscle Weakness Edema: Yes Wound/Incision: Yes: Draining (DRAIN SANGUINOUS FLUID) Neurological: Yes: Pre-Existing Deficit ...Motor Strength: LLE, RLE Psychiatric: Yes: Other Labs: CBC, BMP 12/04/19 06:20 12/04/19 06:20 INR, PTT INR 0.96 (0.83-1.09) 12/02/19 09:43 Problem List - Problems (1) Acute blood loss as cause of postoperative anemia Code(s): D62 - ACUTE POSTHEMORRHAGIC ANEMIA (2) Anemia Code(s): D64.9 - ANEMIA, UNSPECIFIED (3) Back pain Code(s): M54.9 - DORSALGIA, UNSPECIFIED Qualifiers: Back pain location: low back pain Chronicity: unspecified Back pain laterality: bilateral Sciatica presence: without sciatica Qualified Code(s) : M54.5 - Low back pain (4) S/P lumbar fusion Code(s): Z98.1 - ARTHRODESIS STATUS (5) Hypertension Code(s): I10 - ESSENTIAL (PRIMARY) HYPERTENSION Qualifiers: Hypertension type: essential hypertension Qualified Code(s): I10 - Essential (primary) hypertension (6) Low back pain Code(s): M54.5 - LOW BACK PAIN Qualifiers: Chronicity: chronic Back pain laterality: unspecified Sciatica presence: with sciatica Sciatica laterality: sciatica of left side Qualified Code(s): M54.42 - Lumbago with sciatica, left side; G89.29 - Other chronic pain; G89.29 - Other chronic pain (7) Seizure disorder Code(s): G40.909 - EPILEPSY, UNSP, NOT INTRACTABLE, WITHOUT STATUS EPILEPTICUS Assessment/Plan PAIN CONTROL DVT PROPHYLAXIS SURGERY F/U FOR DRAIN REMOVAL FROM WOUND LUMBAR FUSION AND EXPLORATION NEUROSURGERY APPRECIATED DC TELE PT EVAL TO SNF SEIZURE PRECAUTIONS
[2019-12-04] MEDS: ACETAMINOPHEN 325 MG TABLET (FP) PO PRN ×2 (14:39→20:10)
[2019-12-04] MEDS: LACTATED RINGERS SOLUTION 1,000 ML/1,000 ML INFUS.BAG IV SCH (18:24)
[2019-12-04] MEDS: QUEtiapine FUMARATE 200 MG TABLET PO SCH (22:29)
[2019-12-04] MEDS: SENNOSIDES 8.6MG TABLET (FP) PO PRN (22:30)
[2019-12-05] MEDS ORDERED: ceFAZolin SODIUM 1 GM VIAL ONE ×2 (01:04→10:40)
[2019-12-05] MEDS ORDERED: DEXTROSE 5%-WATER - 50 ML IVPB ONE ×2 (01:04→10:40)
[2019-12-05] MEDS: CEFAZOLIN 1 GM in DEXTROSE 5%-WATER - 50 ML IVPB SCH ×3 (01:11→19:49)
[2019-12-05] MEDS: cloNIDine HCL 0.1 MG TABLET PO SCH ×3 (05:46→22:15)
[2019-12-05] MEDS: PHENYTOIN NA EXTENDED 100 MG CAPSULE (FP) PO SCH ×3 (05:46→22:15)
[2019-12-05] MEDS: GABAPENTIN 300 MG CAPSULE PO SCH ×3 (05:46→22:15)
[2019-12-05] MEDS: BACLOFEN 10 MG TABLET (FP) PO SCH ×3 (05:47→22:15)
[2019-12-05] MEDS: DOCUSATE SODIUM 100 MG CAPSULE (FP) PO SCH ×3 (05:47→22:15)
[2019-12-05] MEDS: oxyCODONE HCL 5 MG TABLET PO PRN ×2 (05:47→14:43)
[2019-12-05] MEDS: HEPARIN NA (PORCINE) 5,000 UNITS/ML 1ML VIAL SQ SCH ×3 (05:47→22:19)
--- NOTE | 2019-12-05 08:15 | DS ---
Physical Examination Vital Signs: Vital Signs Temperature 100 F H 12/05/19 06:00 Pulse Rate 90 12/05/19 06:00 Respiratory Rate 20 12/05/19 06:00 Blood Pressure 150/87 12/05/19 06:00 O2 Sat by Pulse Oximetry (%) 98 12/04/19 20:52 Findings/Remarks: AWAKE ALERT FEELS GOOD READY FOR DISCHARGE MEDICAL SIDE Constitutional: Yes: Mild Distress HENT: Yes: WNL Neck: Yes: WNL Cardiovascular: Yes: Regular Rate and Rhythm Respiratory: Yes: CTA Bilaterally Gastrointestinal: Yes: Soft Renal/: Yes: Other Edema: No Integumentary: Yes: WNL Wound/Incision: Yes: Draining (DRAIN SANGUINOUS FLUID WILL HAVE SURGERY DC) Neurological: Yes: Pre-Existing Deficit ...Motor Strength: LLE, RLE Psychiatric: Yes: WNL Labs: CBC, BMP 12/04/19 06:20 12/04/19 06:20 Discharge Summary Problems reviewed: Yes Reason For Visit: LOW BACK PAIN Current Active Problems Acute blood loss as cause of postoperative anemia (Acute) Anemia (Acute) Back pain (Acute) Fall (Acute) Insomnia due to mental disorder (Acute) Prophylactic measure (Acute) S/P lumbar fusion (Acute) Procedures: Principal: LUMBAR SURGERY L2-3 WITH EXPLORATION L4-5 Hospital Course: ADMITTED FOR WORSENING NEUROPATHY REQUIRING LUMBAR SURGERY RECOVERY WENT WELL WILL NOW SEND TO SNF Plan of Treatment: SNF PLACEMENT Condition: Good - Instructions Diet, Activity, Other Instructions: SNF PLACEMENT MONITOR LABS.DILANTIN LEVELS BE AWARE OF OPIOD AND AMBIEN AND BENZODIAZAPINE COMBINATIONS USE CAREFULLY! Referrals: Leela Brennan MD [Primary Care Provider] - [facility]position: [facility] - Home Medications Comprehensive Discharge Medication List: Ambulatory Orders Amlodipine Besylate [Norvasc -] 10 mg PO DAILY #30 tablet 03/27/17 Phenytoin Na Extended [Dilantin -] 100 mg PO TID #0 cap 09/14/17 Zolpidem Tartrate [Ambien] 10 mg PO HS PRN tablet MDD 1 09/14/17 Quetiapine Fumarate [Seroquel -] 200 tab PO HS 12/31/17 cloNIDine HCL [Catapres -] 0.1 mg PO TID 12/31/17 Aspirin [Aspirin EC] 1 tab PO DAILY 11/29/19 Losartan Potassium [Cozaar] 100 mg PO DAILY 11/29/19 Gabapentin [Neurontin] 800 mg PO TID 11/30/19 Acetaminophen [Tylenol .Regular Strength -] 650 mg PO Q6H PRN tablet 12/05/19 Baclofen [Lioresal -] 10 mg PO TID tablet 12/05/19 Diazepam [Valium] 5 mg PO BID tablet MDD 2 12/05/19 Diphenhydramine HCl [Benadryl Capsule -] 25 mg PO Q6H PRN capsule 12/05/19 Docusate Sodium [Colace -] 100 mg PO TID capsule 12/05/19 Ferrous Sulfate [Feosol] 325 mg PO DAILY ud 12/05/19 Folic Acid - 1 mg PO DAILY tablet 12/05/19 Gabapentin [Neurontin -] 900 mg PO TID capsule 12/05/19 Heparin - 5,000 unit SQ TID vial 12/05/19 Polyethylene Glycol 3350 [Miralax 119 gm Btl -] 17 gm PO DAILY bottle 12/05/19 Sennosides [Senna -] 2 tab PO HS PRN tablet 12/05/19 oxyCODONE HCL [Roxicodone -] 5 mg PO Q3H PRN tablet MDD 7 12/05/19 oxyCODONE SR [Oxycontin] 10 mg PO BID #60 tab.er.12h MDD 2 12/05/19
[2019-12-05] MEDS: TAMSULOSIN HCL 0.4 MG CAP PO SCH (09:38)
--- NOTE | 2019-12-05 10:27 | PN ---
Progress Note, Physician Chief Complaint: fevers No CP, SOB, palps TELE: NSR - Current Medication List Current Medications: Active Medications Acetaminophen (Tylenol -) 650 mg PO Q4H PRN PRN Reason: PAIN Last Admin: 12/04/19 20:10 Dose: 650 mg Acetaminophen (Tylenol -) 650 mg PO Q6H PRN PRN Reason: FEVER Amlodipine Besylate (Norvasc -) 5 mg PO DAILY [facility] Last Admin: 12/04/19 10:02 Dose: 5 mg Aspirin (Ecotrin -) 81 mg PO DAILY [facility] Last Admin: 12/04/19 10:04 Dose: 81 mg Baclofen (Lioresal -) 10 mg PO TID [facility] Last Admin: 12/05/19 05:47 Dose: 10 mg Clonidine (Catapres -) 0.1 mg PO TID [facility] Last Admin: 12/05/19 05:46 Dose: 0.1 mg Diazepam (Valium -) 5 mg PO BID [facility] Last Admin: 12/04/19 22:29 Dose: 5 mg Diphenhydramine HCl (Benadryl Injection -) 25 mg IVPUSH ONCE PRN PRN Reason: FOR ITCHING Diphenhydramine HCl (Benadryl -) 25 mg PO Q6H PRN PRN Reason: FOR ITCHING Docusate Sodium (Colace -) 100 mg PO TID [facility] Last Admin: 12/05/19 05:47 Dose: 100 mg Ferrous Sulfate (Feosol -) 325 mg PO DAILY [facility] Last Admin: 12/04/19 10:02 Dose: 325 mg Folic Acid (Folic Acid -) 1 mg PO DAILY [facility] Last Admin: 12/04/19 10:02 Dose: 1 mg Gabapentin (Neurontin -) 900 mg PO TID [facility] Last Admin: 12/05/19 05:46 Dose: 900 mg Heparin Sodium (Porcine) (Heparin -) 5,000 unit SQ TID [facility] Last Admin: 12/05/19 05:47 Dose: 5,000 unit Cefazolin Sodium 1 gm/ (Dextrose) 50 mls @ 100 mls/hr IVPB Q8H-IV [facility] Last Admin: 12/05/19 01:11 Dose: 100 mls/hr Losartan Potassium (Cozaar -) 50 mg PO DAILY [facility] Last Admin: 12/04/19 10:03 Dose: 50 mg Morphine Sulfate (Morphine Sulfate) 2 mg IVPUSH Q3H PRN PRN Reason: PAIN LEVEL 7 - 10 Naloxone HCl (Narcan -) 0.4 mg IVPUSH ONCE PRN PRN Reason: Sedation Ondansetron HCl (Zofran Injection) 4 mg IVPUSH ONCE PRN PRN Reason: NAUSEA Last Admin: 12/02/19 21:00 Dose: 4 mg Ondansetron HCl (Zofran Injection) 4 mg IVPUSH Q6H PRN PRN Reason: NAUSEA Last Admin: 12/03/19 13:10 Dose: 4 mg Oxycodone HCl (Roxicodone -) 5 mg PO Q3H PRN PRN Reason: Mild Pain 1-3 Last Admin: 12/05/19 05:47 Dose: 5 mg Oxycodone HCl (Oxycontin -) 10 mg PO BID [facility] Last Admin: 12/04/19 22:31 Dose: 10 mg Phenytoin Sodium (Dilantin -) 100 mg PO TID [facility] Last Admin: 12/05/19 05:46 Dose: 100 mg Polyethylene Glycol (Miralax (For Daily Use) -) 17 gm PO DAILY [facility] Last Admin: 12/04/19 10:09 Dose: 17 gm Quetiapine Fumarate (Seroquel -) 200 mg PO HS [facility] Last Admin: 12/04/19 22:29 Dose: 200 mg Senna (Senna -) 2 tab PO HS PRN PRN Reason: CONSTIPATION Last Admin: 12/04/19 22:30 Dose: 2 tab Tamsulosin HCl (Flomax -) 0.4 mg PO DAILY@0830 [facility] Last Admin: 12/05/19 09:38 Dose: 0.4 mg Zolpidem Tartrate (Ambien -) 5 mg PO HS PRN PRN Reason: INSOMNIA Last Admin: 12/03/19 22:03 Dose: 5 mg - Objective Vital Signs: Vital Signs Temperature 99.6 F 12/05/19 09:57 Pulse Rate 107 H 12/05/19 09:57 Respiratory Rate 20 12/05/19 09:57 Blood Pressure 106/61 12/05/19 09:57 O2 Sat by Pulse Oximetry (%) 98 12/04/19 20:52 Constitutional: Yes: Calm Cardiovascular: Yes: Regular Rate and Rhythm Respiratory: Yes: CTA Bilaterally Gastrointestinal: Yes: Soft (nt) Edema: No Neurological: Yes: Alert Labs: CBC, BMP 12/04/19 06:20 12/04/19 06:20 INR, PTT INR 0.96 (0.83-1.09) 12/02/19 09:43 Microbiology 12/03/19 17:40 Blood - Peripheral Venous Blood Culture - Preliminary NO GROWTH OBTAINED AFTER 24 HOURS, INCUBATION TO CONTINUE FOR 4 DAYS. 12/03/19 17:20 Blood - Peripheral Venous Blood Culture - Preliminary NO GROWTH OBTAINED AFTER 24 HOURS, INCUBATION TO CONTINUE FOR 4 DAYS. Laboratory Tests 08/05/19 08/05/19 07:33 07:33 WBC 5.3 Hgb 12.4 Plt Count 156 D Sodium 141 Potassium 3.4 L Creatinine 0.6 ALT 27 Alkaline Phosphatase 117 Total Protein 6.4 Albumin 3.5 - ....Imaging EKG: Image Reviewed Assessment/Plan Assessment/Plan echo 2017 nl LV/RV function echo 07/2019 nl LV function EKG: sinus, PVCs tele: sinus back pain, s/p lumbar surgery L4-S1 exploration and hardware reinsertion, L2-L4 PLIF: - manage per surgery anemia: - monitor H/H, transfuse per surgery Palpitations, PVCs: - PVCs noted on EKG - nl EF on recent echo - tele benign HTN: - cont current meds non-obstx CAD: - cath 02/2011 with mild LAD myocardial bridge, no , EF 60% - cont aspirin Fever: as per PMD and N-surgery.
--- NOTE | 2019-12-05 10:36 | PN ---
Progress Note (short form) - Note Progress Note: Neuro Surgery: Pt states that she was OOB and ambulating yesterday in the hallway. Her louie was removed yesterday evening and she hasn't voided. Vital Signs Period Temp Pulse Resp BP Sys/Blackburn Pulse Ox Last 24 Hr 98.7 F-103 F 76-107 20-20 106-156/61-97 98 YELENA: /ml-serosangrenous GEN: A&0x3, NAD CV:RRR Lungs: CTA b/l Back: Inc c/d/i with dermabond. Yelena removed intact. dry dresing applied to ostomy site/incision. ABD: soft, lower abd distention and tenderness CBC, BMP 12/04/19 06:20 12/04/19 06:20 A/p: 64 yo female s/p Exploration of spinal fusion with removal of major hardware with L2-L3, L3/4 decompression and interbody arthrodesis with revision L2-S1 Planning for possible to rehab Ordered bladder scan and straight cath. Louie catheter removed at 12 and hasn 't voided, given flomax by the medical team YELENA removed today Pt seen with Dr. Whitley this afternoon unable to void s/p striaght cath-approx 500ml in bladder Awaiting discharge until able to void
[2019-12-05] MEDS: diazePAM 5 MG TABLET PO SCH ×2 (10:56→22:15)
[2019-12-05] MEDS: FERROUS SO4 325 MG TABLET (FP) PO SCH (10:56)
[2019-12-05] MEDS: oxyCODONE HCL 10 MG SUSTAINED ACTING TABLET PO SCH ×2 (10:57→22:17)
[2019-12-05] MEDS: FOLIC ACID 1 MG TABLET (FP) PO SCH (10:57)
[2019-12-05] MEDS: amLODIPine BESYLATE 5 MG TABLET (FP) PO SCH (10:57)
[2019-12-05] MEDS: ASPIRIN COATED 81 MG TABLET.EC PO SCH (10:57)
[2019-12-05] MEDS: POLYETHYLENE GLYCOL 3350 119 GM BTL PO SCH (10:58)
[2019-12-05] MEDS: LOSARTAN POTASSIUM 50 MG TABLET (FP) PO SCH (10:58)
[2019-12-05] MEDS ORDERED: PT OWN MED DRAWER 7, Y5N ONE (22:13)
[2019-12-05] MEDS: SENNOSIDES 8.6MG TABLET (FP) PO PRN (22:15)
[2019-12-05] MEDS: QUEtiapine FUMARATE 200 MG TABLET PO SCH (22:16)
[2019-12-06] MEDS ORDERED: ceFAZolin SODIUM 1 GM VIAL ONE ×3 (03:53→17:51)
[2019-12-06] MEDS ORDERED: DEXTROSE 5%-WATER - 50 ML IVPB ONE ×3 (03:54→17:52)
[2019-12-06] MEDS: CEFAZOLIN 1 GM in DEXTROSE 5%-WATER - 50 ML IVPB SCH ×3 (04:09→18:15)
[2019-12-06] MEDS: oxyCODONE HCL 5 MG TABLET PO PRN ×3 (04:44→20:14)
[2019-12-06] MEDS: BACLOFEN 10 MG TABLET (FP) PO SCH ×3 (06:12→22:28)
[2019-12-06] MEDS: GABAPENTIN 300 MG CAPSULE PO SCH ×4 (06:12→22:28)
[2019-12-06] MEDS: PHENYTOIN NA EXTENDED 100 MG CAPSULE (FP) PO SCH ×3 (06:12→22:29)
[2019-12-06] MEDS: DOCUSATE SODIUM 100 MG CAPSULE (FP) PO SCH ×3 (06:13→22:28)
[2019-12-06] MEDS: HEPARIN NA (PORCINE) 5,000 UNITS/ML 1ML VIAL SQ SCH ×3 (06:13→22:29)
[2019-12-06] MEDS: cloNIDine HCL 0.1 MG TABLET PO SCH ×3 (06:13→22:28)
--- NOTE | 2019-12-06 08:32 | PN ---
Progress Note, Physician History of Present Illness: Offers no CV complaints this AM No chest pains or palpitations Tele: None - Current Medication List Current Medications: Active Medications Acetaminophen (Tylenol -) 650 mg PO Q4H PRN PRN Reason: PAIN Last Admin: 12/04/19 20:10 Dose: 650 mg Acetaminophen (Tylenol -) 650 mg PO Q6H PRN PRN Reason: FEVER Amlodipine Besylate (Norvasc -) 5 mg PO DAILY [facility] Last Admin: 12/05/19 10:57 Dose: 5 mg Aspirin (Ecotrin -) 81 mg PO DAILY [facility] Last Admin: 12/05/19 10:57 Dose: 81 mg Baclofen (Lioresal -) 10 mg PO TID [facility] Last Admin: 12/06/19 06:12 Dose: 10 mg Clonidine (Catapres -) 0.1 mg PO TID [facility] Last Admin: 12/06/19 06:13 Dose: 0.1 mg Diazepam (Valium -) 5 mg PO BID [facility] Last Admin: 12/05/19 22:15 Dose: 5 mg Diphenhydramine HCl (Benadryl Injection -) 25 mg IVPUSH ONCE PRN PRN Reason: FOR ITCHING Diphenhydramine HCl (Benadryl -) 25 mg PO Q6H PRN PRN Reason: FOR ITCHING Docusate Sodium (Colace -) 100 mg PO TID [facility] Last Admin: 12/06/19 06:13 Dose: 100 mg Ferrous Sulfate (Feosol -) 325 mg PO DAILY [facility] Last Admin: 12/05/19 10:56 Dose: 325 mg Folic Acid (Folic Acid -) 1 mg PO DAILY [facility] Last Admin: 12/05/19 10:57 Dose: 1 mg Gabapentin (Neurontin -) 900 mg PO TID [facility] Last Admin: 12/06/19 06:12 Dose: 900 mg Heparin Sodium (Porcine) (Heparin -) 5,000 unit SQ TID [facility] Last Admin: 12/06/19 06:13 Dose: 5,000 unit Cefazolin Sodium 1 gm/ (Dextrose) 50 mls @ 100 mls/hr IVPB Q8H-IV [facility] Last Admin: 12/06/19 04:09 Dose: 100 mls/hr Losartan Potassium (Cozaar -) 50 mg PO DAILY [facility] Last Admin: 12/05/19 10:58 Dose: 50 mg Morphine Sulfate (Morphine Sulfate) 2 mg IVPUSH Q3H PRN PRN Reason: PAIN LEVEL 7 - 10 Naloxone HCl (Narcan -) 0.4 mg IVPUSH ONCE PRN PRN Reason: Sedation Ondansetron HCl (Zofran Injection) 4 mg IVPUSH ONCE PRN PRN Reason: NAUSEA Last Admin: 12/02/19 21:00 Dose: 4 mg Ondansetron HCl (Zofran Injection) 4 mg IVPUSH Q6H PRN PRN Reason: NAUSEA Last Admin: 12/03/19 13:10 Dose: 4 mg Oxycodone HCl (Roxicodone -) 5 mg PO Q3H PRN PRN Reason: Mild Pain 1-3 Last Admin: 12/06/19 04:44 Dose: 5 mg Oxycodone HCl (Oxycontin -) 10 mg PO BID [facility] Last Admin: 12/05/19 22:17 Dose: 10 mg Phenytoin Sodium (Dilantin -) 100 mg PO TID [facility] Last Admin: 12/06/19 06:12 Dose: 100 mg Polyethylene Glycol (Miralax (For Daily Use) -) 17 gm PO DAILY [facility] Last Admin: 12/05/19 10:58 Dose: 17 gm Quetiapine Fumarate (Seroquel -) 200 mg PO HS [facility] Last Admin: 12/05/19 22:16 Dose: 200 mg Senna (Senna -) 2 tab PO HS PRN PRN Reason: CONSTIPATION Last Admin: 12/05/19 22:15 Dose: 2 tab Tamsulosin HCl (Flomax -) 0.4 mg PO DAILY@0830 [facility] Last Admin: 12/05/19 09:38 Dose: 0.4 mg - Objective Vital Signs: Vital Signs Temperature 99 F 12/06/19 05:00 Pulse Rate 84 12/06/19 05:00 Respiratory Rate 21 H 12/06/19 05:00 Blood Pressure 151/96 12/06/19 05:00 O2 Sat by Pulse Oximetry (%) 98 12/05/19 21:00 Constitutional: Yes: No Distress, Calm Cardiovascular: Yes: Regular Rate and Rhythm, Tachycardia Respiratory: Yes: CTA Bilaterally Edema: No Labs: CBC, BMP 12/04/19 06:20 12/04/19 06:20 INR, PTT INR 0.96 (0.83-1.09) 12/02/19 09:43 Assessment/Plan back pain, s/p lumbar surgery L4-S1 exploration and hardware reinsertion, L2-L4 PLIF: - manage per surgery anemia: - monitor H/H, transfuse per surgery Palpitations, PVCs: - PVCs noted on EKG - nl EF on recent echo - tele benign HTN: - cont current meds non-obstx CAD: - cath 02/2011 with mild LAD myocardial bridge, no , EF 60% - cont aspirin Fever: as per PMD and N-surgery.
[2019-12-06] MEDS: FERROUS SO4 325 MG TABLET (FP) PO SCH (10:29)
[2019-12-06] MEDS: TAMSULOSIN HCL 0.4 MG CAP PO SCH (10:29)
[2019-12-06] MEDS: diazePAM 5 MG TABLET PO SCH ×2 (10:30→22:28)
[2019-12-06] MEDS: ASPIRIN COATED 81 MG TABLET.EC PO SCH (10:30)
[2019-12-06] MEDS: FOLIC ACID 1 MG TABLET (FP) PO SCH (10:30)
[2019-12-06] MEDS: POLYETHYLENE GLYCOL 3350 119 GM BTL PO SCH (10:30)
[2019-12-06] MEDS: amLODIPine BESYLATE 5 MG TABLET (FP) PO SCH (10:30)
[2019-12-06] MEDS: oxyCODONE HCL 10 MG SUSTAINED ACTING TABLET PO SCH ×2 (10:30→22:29)
[2019-12-06] MEDS: LOSARTAN POTASSIUM 50 MG TABLET (FP) PO SCH (10:31)
--- NOTE | 2019-12-06 16:45 | PN ---
Progress Note, Physician Chief Complaint: S/p Fall Lower Back Pain History of Present Illness: NAD in bed Operative Date: 12/02/19 Pre-Operative Diagnosis: Lumbar spondylosis with suboptimal screw Operation: Exploration of spinal fusion with removal of major hardware with L2- L3, L3/4 decompression and interbody arthrodesis with revision L2-S1 Post-Operative Diagnosis: Same as Pre-op Surgeon: Rakan Whitley Pain of 6/10 at the moment BLLE sensation, movement improved walked with PT - Current Medication List Current Medications: Active Medications Acetaminophen (Tylenol -) 650 mg PO Q4H PRN PRN Reason: PAIN Last Admin: 12/04/19 20:10 Dose: 650 mg Acetaminophen (Tylenol -) 650 mg PO Q6H PRN PRN Reason: FEVER Amlodipine Besylate (Norvasc -) 5 mg PO DAILY [facility] Last Admin: 12/06/19 10:30 Dose: 5 mg Aspirin (Ecotrin -) 81 mg PO DAILY [facility] Last Admin: 12/06/19 10:30 Dose: 81 mg Baclofen (Lioresal -) 10 mg PO TID [facility] Last Admin: 12/06/19 14:19 Dose: 10 mg Clonidine (Catapres -) 0.1 mg PO TID [facility] Last Admin: 12/06/19 14:19 Dose: 0.1 mg Diazepam (Valium -) 5 mg PO BID [facility] Last Admin: 12/06/19 10:30 Dose: 5 mg Diphenhydramine HCl (Benadryl Injection -) 25 mg IVPUSH ONCE PRN PRN Reason: FOR ITCHING Diphenhydramine HCl (Benadryl -) 25 mg PO Q6H PRN PRN Reason: FOR ITCHING Docusate Sodium (Colace -) 100 mg PO TID [facility] Last Admin: 12/06/19 14:19 Dose: 100 mg Ferrous Sulfate (Feosol -) 325 mg PO DAILY [facility] Last Admin: 12/06/19 10:29 Dose: 325 mg Folic Acid (Folic Acid -) 1 mg PO DAILY [facility] Last Admin: 12/06/19 10:30 Dose: 1 mg Gabapentin (Neurontin -) 900 mg PO TID [facility] Last Admin: 12/06/19 14:19 Dose: 900 mg Heparin Sodium (Porcine) (Heparin -) 5,000 unit SQ TID [facility] Last Admin: 12/06/19 14:19 Dose: 5,000 unit Cefazolin Sodium 1 gm/ (Dextrose) 50 mls @ 100 mls/hr IVPB Q8H-IV [facility] Last Admin: 12/06/19 10:31 Dose: 100 mls/hr Losartan Potassium (Cozaar -) 50 mg PO DAILY [facility] Last Admin: 12/06/19 10:31 Dose: 50 mg Naloxone HCl (Narcan -) 0.4 mg IVPUSH ONCE PRN PRN Reason: Sedation Ondansetron HCl (Zofran Injection) 4 mg IVPUSH ONCE PRN PRN Reason: NAUSEA Last Admin: 12/02/19 21:00 Dose: 4 mg Ondansetron HCl (Zofran Injection) 4 mg IVPUSH Q6H PRN PRN Reason: NAUSEA Last Admin: 12/03/19 13:10 Dose: 4 mg Oxycodone HCl (Roxicodone -) 5 mg PO Q3H PRN PRN Reason: Mild Pain 1-3 Last Admin: 12/06/19 14:19 Dose: 5 mg Oxycodone HCl (Oxycontin -) 10 mg PO BID [facility] Last Admin: 12/06/19 10:30 Dose: 10 mg Phenytoin Sodium (Dilantin -) 100 mg PO TID [facility] Last Admin: 12/06/19 14:19 Dose: 100 mg Polyethylene Glycol (Miralax (For Daily Use) -) 17 gm PO DAILY [facility] Last Admin: 12/06/19 10:30 Dose: 17 gm Quetiapine Fumarate (Seroquel -) 200 mg PO HS [facility] Last Admin: 12/05/19 22:16 Dose: 200 mg Senna (Senna -) 2 tab PO HS PRN PRN Reason: CONSTIPATION Last Admin: 12/05/19 22:15 Dose: 2 tab Tamsulosin HCl (Flomax -) 0.4 mg PO DAILY@0830 [facility] Last Admin: 12/06/19 10:29 Dose: 0.4 mg - Objective Vital Signs: Vital Signs Temperature 99.3 F 12/06/19 14:00 Pulse Rate 85 12/06/19 14:00 Respiratory Rate 20 12/06/19 14:00 Blood Pressure 123/62 12/06/19 14:00 O2 Sat by Pulse Oximetry (%) 99 12/06/19 09:00 Constitutional: Yes: Well Nourished, No Distress, Calm Cardiovascular: Yes: Regular Rate and Rhythm Respiratory: Yes: Regular Gastrointestinal: Yes: Normal Bowel Sounds, Soft Genitourinary: Yes: Louie Present Musculoskeletal: Yes: WNL Extremities: Yes: WNL Edema: No Peripheral Pulses WNL: Yes Neurological: Yes: Alert, Oriented Psychiatric: Yes: Alert, Oriented Labs: CBC, BMP 12/04/19 06:20 12/04/19 06:20 INR, PTT INR 0.96 (0.83-1.09) 12/02/19 09:43 Problem List - Problems (1) Postoperative urinary retention Assessment/Plan: -maintain louie catheter -On tamsulosin- continue Problems reviewed: Yes Code(s): N99.89 - OTH POSTPROCEDURAL COMPLICATIONS AND DISORDERS OF SYS; R33.8 - OTHER RETENTION OF URINE (2) Constipation Assessment/Plan: -Opioid induced -Relistor sq 12 mcg daily Problems reviewed: Yes Code(s): K59.00 - CONSTIPATION, UNSPECIFIED Qualifiers: Constipation type: unspecified constipation type Qualified Code(s): K59.00 - Constipation, unspecified Assessment/Plan (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 Assessment/Plan: -Seroquel HS -Ambien prn Code(s): F51.05 - INSOMNIA DUE TO OTHER MENTAL DISORDER (2) Chronic back pain Assessment/Plan: -Neurosurgery consult -pain control -patient is s/p spinal fusion 3 wks ago at [facility] with Dr Mir -PT -fall precaution -Lumbar CT scan shows s/p posterior fusion of L4-S1 in satisfactory alignment , interbody spacer at L4-L5 level is in satisfactory position, interbody spacer at L5-S1 is slightly extending beyond the posterior margin of L5 verterbral body into the anterior aspect of the spinal canal, left transpedicular screw at S1 level is traversing along the left margin of the spinal canal just superior to left S1 nerve root, post op soft tissue swelling with subcutaneous edema and likely loculated serosanguinous fluid fluid present, significant degenerative disc disease L2-L3 and L3-L4 level and irregularity of the corresponding endplates again seen -Thoracic Spine CT scan shows no compression fracture or subluxation identified , intervertebral disc spaces are intact, multilevel degenerative disc disease, -Lumbar MRI:Status post posterior fusion L4-S1 with interbody devices, laminectomy, bone grafting.. Magnetic susceptible to artifacts from the metallic hardware limits evaluation of the neural foramina. Chronic degenerative discogenic disease at L2-L3 L3-4 with degenerative bone marrow changes. Multiple disc space narrowing -MRI C Spine:Straightening of the cervical spine with reversal curvature Multilevel posterior disc osteophyte complex encroaching on ventral subarachnoid space, Central spinal canal stenosis without cord compression, normal signal intensity of the spinal cord. -Increase Gabapentin to 900 mg po qid Code(s): M54.9 - DORSALGIA, UNSPECIFIED; G89.29 - OTHER CHRONIC PAIN Qualifiers: Back pain location: low back pain Back pain laterality: bilateral (3) HTN (hypertension) Assessment/Plan: -Amlodipine, Clonidine, Losartan -low Na diet Code(s): I10 - ESSENTIAL (PRIMARY) HYPERTENSION (4) Fall Assessment/Plan: -patient is s/p spinal fusion 3 wks ago at [facility] with Dr Mir -PT -fall precaution -Lumbar CT scan shows s/p posterior fusion of L4-S1 in satisfactory alignment , interbody spacer at L4-L5 level is in satisfactory position, interbody spacer at L5-S1 is slightly extending beyond the posterior margin of L5 verterbral body into the anterior aspect of the spinal canal, left transpedicular screw at S1 level is traversing along the left margin of the spinal canal just superior to left S1 nerve root, post op soft tissue swelling with subcutaneous edema and likely loculated serosanguinous fluid fluid present, significant degenerative disc disease L2-L3 and L3-L4 level and irregularity of the corresponding endplates again seen -Thoracic Spine CT scan shows no compression fracture or subluxation identified , intervertebral disc spaces are intact, multilevel degenerative disc disease -C-spine CT scan shows the alignment is satisfactory, no gross fracture or subluxation is seen, multilevel degenerative disc disease -MRI C Spine:Straightening of the cervical spine with reversal curvature Multilevel posterior disc osteophyte complex encroaching on ventral subarachnoid space, Central spinal canal stenosis without cord compression, normal signal intensity of the spinal cord. -Awaiting bed at [facility] Code(s): W19.XXXA - UNSPECIFIED FALL, INITIAL ENCOUNTER (5) Seizure disorder Assessment/Plan: -Dilantin -seizure precaution Code(s): G40.909 - EPILEPSY, UNSP, NOT INTRACTABLE, WITHOUT STATUS EPILEPTICUS (6) Anemia Assessment/Plan: -Stool OB pending -Anemia profile unremarkable -transfuse for Hg <7.0 -Labs in AM Code(s): D64.9 - ANEMIA, UNSPECIFIED Assessment/Plan Last Echo done 07/2019-no LVH, LVEF-70%+ mild aortic valve thickening see problem list dvt ppx
[2019-12-06] MEDS ORDERED: PT OWN MED DRAWER 7, Y5N ONE (22:24)
[2019-12-06] MEDS: Methylnaltrexone Bromide 12 MG/0.6 ML KIT SQ SCH (22:27)
[2019-12-06] MEDS: QUEtiapine FUMARATE 200 MG TABLET PO SCH (22:28)
[2019-12-07] MEDS: CEFAZOLIN 1 GM in DEXTROSE 5%-WATER - 50 ML IVPB SCH ×3 (04:00→18:00)
[2019-12-07] MEDS: HEPARIN NA (PORCINE) 5,000 UNITS/ML 1ML VIAL SQ SCH ×3 (06:28→22:23)
[2019-12-07] MEDS: PHENYTOIN NA EXTENDED 100 MG CAPSULE (FP) PO SCH ×3 (06:28→22:23)
[2019-12-07] MEDS: cloNIDine HCL 0.1 MG TABLET PO SCH ×3 (06:28→22:17)
[2019-12-07] MEDS: DOCUSATE SODIUM 100 MG CAPSULE (FP) PO SCH ×3 (06:28→22:16)
[2019-12-07] MEDS: oxyCODONE HCL 5 MG TABLET PO PRN ×2 (06:28→15:54)
[2019-12-07] MEDS: BACLOFEN 10 MG TABLET (FP) PO SCH ×3 (06:28→22:16)
[2019-12-07 07:01] LABS: BILIRUBIN,TOTAL 0.3 mg/dL (0.2-1); BLOOD UREA NITROGEN 5.1 mg/dL (7-18); CALCIUM 8.3 mg/dL (8.5-10.1); CREATININE 0.4 mg/dL (0.55-1.3); POTASSIUM 3.9 mmol/L (3.5-5.1); TOT PROT 5.2 g/dl (6.4-8.2)
[2019-12-07 07:04] LABS: BASO % 0.7 % (0-2.0); EOS % 2.7 % (0-4.5); HEMATOCRIT 23.3 % (32.4-45.2); LYMPH % 26.6 % (8-40); MCH 31.9 pg (25.7-33.7); MCHC 34.2 g/dl (32.0-36.0); MEAN CELL VOLUME 93.1 fl (80-96); MEAN PLT VOLUME 9.4 fl (7.5-11.1); MONO % 13.3 % (3.8-10.2); NEUT % 56.7 % (42.8-82.8); PLATELET COUNT 245 K/MM3 (134-434); RDW 14.7 % (11.6-15.6); WHITE BLOOD COUNT 5.4 K/mm3 (4.0-10.0)
[2019-12-07] MEDS ORDERED: PT OWN MED DRAWER 7, Y5N ONE (09:44)
[2019-12-07] MEDS ORDERED: DEXTROSE 5%-WATER - 50 ML IVPB ONE ×2 (09:45→17:44)
[2019-12-07] MEDS ORDERED: ceFAZolin SODIUM 1 GM VIAL ONE ×2 (09:45→17:44)
--- NOTE | 2019-12-07 09:45 | PN ---
Progress Note, Physician History of Present Illness: No CV complaints today Tolerating Low back pain Tele removed - Current Medication List Current Medications: Active Medications Acetaminophen (Tylenol -) 650 mg PO Q4H PRN PRN Reason: PAIN Last Admin: 12/04/19 20:10 Dose: 650 mg Acetaminophen (Tylenol -) 650 mg PO Q6H PRN PRN Reason: FEVER Amlodipine Besylate (Norvasc -) 5 mg PO DAILY [facility] Last Admin: 12/06/19 10:30 Dose: 5 mg Aspirin (Ecotrin -) 81 mg PO DAILY [facility] Last Admin: 12/06/19 10:30 Dose: 81 mg Baclofen (Lioresal -) 10 mg PO TID [facility] Last Admin: 12/07/19 06:28 Dose: 10 mg Clonidine (Catapres -) 0.1 mg PO TID [facility] Last Admin: 12/07/19 06:28 Dose: 0.1 mg Diazepam (Valium -) 5 mg PO BID [facility] Last Admin: 12/06/19 22:28 Dose: 5 mg Diphenhydramine HCl (Benadryl Injection -) 25 mg IVPUSH ONCE PRN PRN Reason: FOR ITCHING Diphenhydramine HCl (Benadryl -) 25 mg PO Q6H PRN PRN Reason: FOR ITCHING Docusate Sodium (Colace -) 100 mg PO TID [facility] Last Admin: 12/07/19 06:28 Dose: 100 mg Ferrous Sulfate (Feosol -) 325 mg PO DAILY [facility] Last Admin: 12/06/19 10:29 Dose: 325 mg Folic Acid (Folic Acid -) 1 mg PO DAILY [facility] Last Admin: 12/06/19 10:30 Dose: 1 mg Gabapentin (Neurontin -) 900 mg PO QID [facility] Last Admin: 12/06/19 22:28 Dose: 900 mg Heparin Sodium (Porcine) (Heparin -) 5,000 unit SQ TID [facility] Last Admin: 12/07/19 06:28 Dose: 5,000 unit Cefazolin Sodium 1 gm/ (Dextrose) 50 mls @ 100 mls/hr IVPB Q8H-IV [facility] Last Admin: 12/07/19 04:00 Dose: 100 mls/hr Losartan Potassium (Cozaar -) 50 mg PO DAILY [facility] Last Admin: 12/06/19 10:31 Dose: 50 mg Methylnaltrexone [place] (Relistor -) 12 mg SQ DAILY [facility] Last Admin: 12/06/19 22:27 Dose: 12 mg Naloxone HCl (Narcan -) 0.4 mg IVPUSH ONCE PRN PRN Reason: Sedation Ondansetron HCl (Zofran Injection) 4 mg IVPUSH ONCE PRN PRN Reason: NAUSEA Last Admin: 12/02/19 21:00 Dose: 4 mg Ondansetron HCl (Zofran Injection) 4 mg IVPUSH Q6H PRN PRN Reason: NAUSEA Last Admin: 12/03/19 13:10 Dose: 4 mg Oxycodone HCl (Roxicodone -) 5 mg PO Q3H PRN PRN Reason: Mild Pain 1-3 Last Admin: 12/07/19 06:28 Dose: 5 mg Oxycodone HCl (Oxycontin -) 10 mg PO BID [facility] Last Admin: 12/06/19 22:29 Dose: 10 mg Phenytoin Sodium (Dilantin -) 100 mg PO TID [facility] Last Admin: 12/07/19 06:28 Dose: 100 mg Polyethylene Glycol (Miralax (For Daily Use) -) 17 gm PO DAILY [facility] Last Admin: 12/06/19 10:30 Dose: 17 gm Quetiapine Fumarate (Seroquel -) 200 mg PO HS [facility] Last Admin: 12/06/19 22:28 Dose: 200 mg Senna (Senna -) 2 tab PO HS PRN PRN Reason: CONSTIPATION Last Admin: 12/05/19 22:15 Dose: 2 tab Tamsulosin HCl (Flomax -) 0.4 mg PO DAILY@0830 [facility] Last Admin: 12/06/19 10:29 Dose: 0.4 mg - Objective Vital Signs: Vital Signs Temperature 97.8 F 12/07/19 01:54 Pulse Rate 71 12/07/19 01:54 Respiratory Rate 20 12/07/19 01:54 Blood Pressure 118/74 12/07/19 06:00 O2 Sat by Pulse Oximetry (%) 99 12/06/19 09:00 Constitutional: Yes: No Distress, Calm Cardiovascular: Yes: Regular Rate and Rhythm Respiratory: Yes: CTA Bilaterally Edema: No Labs: CBC, BMP 12/07/19 06:06 12/07/19 06:06 INR, PTT INR 0.96 (0.83-1.09) 12/02/19 09:43 Assessment/Plan back pain, s/p lumbar surgery L4-S1 exploration and hardware reinsertion, L2-L4 PLIF: - manage per surgery anemia: - monitor H/H, transfuse per surgery -Hgb 8 Palpitations, PVCs: - PVCs noted on EKG - nl EF on recent echo - tele benign HTN: - cont current meds non-obstx CAD: - cath 02/2011 with mild LAD myocardial bridge, no , EF 60% - cont aspirin Fever: as per PMD and N-surgery.
[2019-12-07] MEDS: LOSARTAN POTASSIUM 50 MG TABLET (FP) PO SCH (10:29)
[2019-12-07] MEDS: FERROUS SO4 325 MG TABLET (FP) PO SCH (10:30)
[2019-12-07] MEDS: GABAPENTIN 300 MG CAPSULE PO SCH ×4 (10:30→22:15)
[2019-12-07] MEDS: TAMSULOSIN HCL 0.4 MG CAP PO SCH (10:30)
[2019-12-07] MEDS: ASPIRIN COATED 81 MG TABLET.EC PO SCH (10:31)
[2019-12-07] MEDS: amLODIPine BESYLATE 5 MG TABLET (FP) PO SCH (10:32)
[2019-12-07] MEDS: diazePAM 5 MG TABLET PO SCH ×2 (10:32→22:16)
[2019-12-07] MEDS: oxyCODONE HCL 10 MG SUSTAINED ACTING TABLET PO SCH ×3 (10:32→22:28)
[2019-12-07] MEDS: FOLIC ACID 1 MG TABLET (FP) PO SCH (10:32)
[2019-12-07] MEDS: POLYETHYLENE GLYCOL 3350 119 GM BTL PO SCH (10:34)
[2019-12-07] MEDS: Methylnaltrexone Bromide 12 MG/0.6 ML KIT SQ SCH (10:55)
[2019-12-07] MEDS ORDERED: MAGNESIUM CITRATE 300 ML BOTTLE PO ONE (14:41)
--- NOTE | 2019-12-07 14:43 | PN ---
Progress Note, Physician Chief Complaint: S/p Fall Lower Back Pain History of Present Illness: NAD in bed Operative Date: 12/02/19 Pre-Operative Diagnosis: Lumbar spondylosis with suboptimal screw Operation: Exploration of spinal fusion with removal of major hardware with L2- L3, L3/4 decompression and interbody arthrodesis with revision L2-S1 Post-Operative Diagnosis: Same as Pre-op Surgeon: Rakan Whitley Pain of 6/10 at the moment BLLE sensation, movement improved walked with PT Still no BM - Current Medication List Current Medications: Active Medications Acetaminophen (Tylenol -) 650 mg PO Q4H PRN PRN Reason: PAIN Last Admin: 12/04/19 20:10 Dose: 650 mg Acetaminophen (Tylenol -) 650 mg PO Q6H PRN PRN Reason: FEVER Amlodipine Besylate (Norvasc -) 5 mg PO DAILY [facility] Last Admin: 12/07/19 10:32 Dose: 5 mg Aspirin (Ecotrin -) 81 mg PO DAILY [facility] Last Admin: 12/07/19 10:31 Dose: 81 mg Baclofen (Lioresal -) 10 mg PO TID [facility] Last Admin: 12/07/19 06:28 Dose: 10 mg Clonidine (Catapres -) 0.1 mg PO TID [facility] Last Admin: 12/07/19 06:28 Dose: 0.1 mg Diazepam (Valium -) 5 mg PO BID [facility] Last Admin: 12/07/19 10:32 Dose: 5 mg Diphenhydramine HCl (Benadryl Injection -) 25 mg IVPUSH ONCE PRN PRN Reason: FOR ITCHING Diphenhydramine HCl (Benadryl -) 25 mg PO Q6H PRN PRN Reason: FOR ITCHING Docusate Sodium (Colace -) 100 mg PO TID [facility] Last Admin: 12/07/19 06:28 Dose: 100 mg Ferrous Sulfate (Feosol -) 325 mg PO DAILY [facility] Last Admin: 12/07/19 10:30 Dose: 325 mg Folic Acid (Folic Acid -) 1 mg PO DAILY [facility] Last Admin: 12/07/19 10:32 Dose: 1 mg Gabapentin (Neurontin -) 900 mg PO QID [facility] Last Admin: 12/07/19 10:30 Dose: 900 mg Heparin Sodium (Porcine) (Heparin -) 5,000 unit SQ TID [facility] Last Admin: 12/07/19 06:28 Dose: 5,000 unit Cefazolin Sodium 1 gm/ (Dextrose) 50 mls @ 100 mls/hr IVPB Q8H-IV [facility] Last Admin: 12/07/19 10:34 Dose: 100 mls/hr Losartan Potassium (Cozaar -) 50 mg PO DAILY [facility] Last Admin: 12/07/19 10:29 Dose: 50 mg Magnesium Citrate (Citroma -) 300 ml PO ONCE ONE Stop: 12/07/19 14:42 Methylnaltrexone [place] (Relistor -) 12 mg SQ DAILY [facility] Last Admin: 12/06/19 22:27 Dose: 12 mg Naloxone HCl (Narcan -) 0.4 mg IVPUSH ONCE PRN PRN Reason: Sedation Ondansetron HCl (Zofran Injection) 4 mg IVPUSH ONCE PRN PRN Reason: NAUSEA Last Admin: 12/02/19 21:00 Dose: 4 mg Ondansetron HCl (Zofran Injection) 4 mg IVPUSH Q6H PRN PRN Reason: NAUSEA Last Admin: 12/03/19 13:10 Dose: 4 mg Oxycodone HCl (Roxicodone -) 5 mg PO Q3H PRN PRN Reason: Mild Pain 1-3 Last Admin: 12/07/19 06:28 Dose: 5 mg Oxycodone HCl (Oxycontin -) 10 mg PO BID [facility] Last Admin: 12/07/19 10:32 Dose: 10 mg Phenytoin Sodium (Dilantin -) 100 mg PO TID [facility] Last Admin: 12/07/19 06:28 Dose: 100 mg Polyethylene Glycol (Miralax (For Daily Use) -) 17 gm PO DAILY [facility] Last Admin: 12/07/19 10:34 Dose: 17 gm Quetiapine Fumarate (Seroquel -) 200 mg PO HS [facility] Last Admin: 12/06/19 22:28 Dose: 200 mg Senna (Senna -) 2 tab PO HS PRN PRN Reason: CONSTIPATION Last Admin: 12/05/19 22:15 Dose: 2 tab Tamsulosin HCl (Flomax -) 0.4 mg PO DAILY@0830 [facility] Last Admin: 12/07/19 10:30 Dose: 0.4 mg - Objective Vital Signs: Vital Signs Temperature 98.4 F 02/09/20 14:00 Pulse Rate 74 12/07/19 14:00 Respiratory Rate 20 12/07/19 14:00 Blood Pressure 103/59 L 12/07/19 14:00 O2 Sat by Pulse Oximetry (%) 99 12/07/19 09:00 Constitutional: Yes: Well Nourished, No Distress, Calm Cardiovascular: Yes: Regular Rate and Rhythm Respiratory: Yes: Regular Gastrointestinal: Yes: Normal Bowel Sounds, Soft Genitourinary: Yes: WNL Musculoskeletal: Yes: Back Pain, Muscle Weakness Extremities: Yes: WNL Edema: No Peripheral Pulses WNL: Yes Neurological: Yes: Alert, Oriented Psychiatric: Yes: Alert, Oriented Labs: CBC, BMP 12/07/19 06:06 12/07/19 06:06 INR, PTT INR 0.96 (0.83-1.09) 12/02/19 09:43 Problem List - Problems (1) Postoperative urinary retention Assessment/Plan: -maintain louie catheter -On tamsulosin- continue Problems reviewed: Yes Code(s): N99.89 - OTH POSTPROCEDURAL COMPLICATIONS AND DISORDERS OF SYS; R33.8 - OTHER RETENTION OF URINE (2) Constipation Assessment/Plan: -Opioid induced -Relistor sq 12 mcg daily -Mag citrate once Problems reviewed: Yes Code(s): K59.00 - CONSTIPATION, UNSPECIFIED Qualifiers: Constipation type: unspecified constipation type Qualified Code(s): K59.00 - Constipation, unspecified Assessment/Plan (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 Assessment/Plan: -Seroquel HS -Ambien prn Code(s): F51.05 - INSOMNIA DUE TO OTHER MENTAL DISORDER (2) Chronic back pain Assessment/Plan: -Neurosurgery consult -pain control -patient is s/p spinal fusion 3 wks ago at [facility] with Dr Mir -PT -fall precaution -Lumbar CT scan shows s/p posterior fusion of L4-S1 in satisfactory alignment , interbody spacer at L4-L5 level is in satisfactory position, interbody spacer at L5-S1 is slightly extending beyond the posterior margin of L5 verterbral body into the anterior aspect of the spinal canal, left transpedicular screw at S1 level is traversing along the left margin of the spinal canal just superior to left S1 nerve root, post op soft tissue swelling with subcutaneous edema and likely loculated serosanguinous fluid fluid present, significant degenerative disc disease L2-L3 and L3-L4 level and irregularity of the corresponding endplates again seen -Thoracic Spine CT scan shows no compression fracture or subluxation identified , intervertebral disc spaces are intact, multilevel degenerative disc disease, -Lumbar MRI:Status post posterior fusion L4-S1 with interbody devices, laminectomy, bone grafting.. Magnetic susceptible to artifacts from the metallic hardware limits evaluation of the neural foramina. Chronic degenerative discogenic disease at L2-L3 L3-4 with degenerative bone marrow changes. Multiple disc space narrowing -MRI C Spine:Straightening of the cervical spine with reversal curvature Multilevel posterior disc osteophyte complex encroaching on ventral subarachnoid space, Central spinal canal stenosis without cord compression, normal signal intensity of the spinal cord. -Increased Gabapentin to 900 mg po qid Code(s): M54.9 - DORSALGIA, UNSPECIFIED; G89.29 - OTHER CHRONIC PAIN Qualifiers: Back pain location: low back pain Back pain laterality: bilateral (3) HTN (hypertension) Assessment/Plan: -Amlodipine, Clonidine, Losartan -low Na diet Code(s): I10 - ESSENTIAL (PRIMARY) HYPERTENSION (4) Fall Assessment/Plan: -patient is s/p spinal fusion 3 wks ago at [facility] with Dr Mir -PT -fall precaution -Lumbar CT scan shows s/p posterior fusion of L4-S1 in satisfactory alignment , interbody spacer at L4-L5 level is in satisfactory position, interbody spacer at L5-S1 is slightly extending beyond the posterior margin of L5 verterbral body into the anterior aspect of the spinal canal, left transpedicular screw at S1 level is traversing along the left margin of the spinal canal just superior to left S1 nerve root, post op soft tissue swelling with subcutaneous edema and likely loculated serosanguinous fluid fluid present, significant degenerative disc disease L2-L3 and L3-L4 level and irregularity of the corresponding endplates again seen -Thoracic Spine CT scan shows no compression fracture or subluxation identified , intervertebral disc spaces are intact, multilevel degenerative disc disease -C-spine CT scan shows the alignment is satisfactory, no gross fracture or subluxation is seen, multilevel degenerative disc disease -MRI C Spine:Straightening of the cervical spine with reversal curvature Multilevel posterior disc osteophyte complex encroaching on ventral subarachnoid space, Central spinal canal stenosis without cord compression, normal signal intensity of the spinal cord. -Awaiting bed at [facility] Code(s): W19.XXXA - UNSPECIFIED FALL, INITIAL ENCOUNTER (5) Seizure disorder Assessment/Plan: -Dilantin -seizure precaution Code(s): G40.909 - EPILEPSY, UNSP, NOT INTRACTABLE, WITHOUT STATUS EPILEPTICUS (6) Anemia Assessment/Plan: -Stool OB pending -Anemia profile unremarkable -transfuse for Hg <7.0 -Labs in AM Code(s): D64.9 - ANEMIA, UNSPECIFIED Assessment/Plan Last Echo done 07/2019-no LVH, LVEF-70%+ mild aortic valve thickening see problem list dvt ppx
[2019-12-07] MEDS ORDERED: SODIUM CHLORIDE 1,000 ML IV STA (22:25)
[2019-12-07] MEDS: QUEtiapine FUMARATE 200 MG TABLET PO SCH (22:59)
[2019-12-08] MEDS ORDERED: ceFAZolin SODIUM 1 GM VIAL ONE ×2 (02:22→09:37)
[2019-12-08] MEDS ORDERED: DEXTROSE 5%-WATER - 50 ML IVPB ONE ×2 (02:23→09:37)
[2019-12-08] MEDS: CEFAZOLIN 1 GM in DEXTROSE 5%-WATER - 50 ML IVPB SCH ×2 (02:44→09:46)
[2019-12-08] MEDS: HEPARIN NA (PORCINE) 5,000 UNITS/ML 1ML VIAL SQ SCH ×2 (05:38→14:31)
[2019-12-08] MEDS: cloNIDine HCL 0.1 MG TABLET PO SCH ×2 (05:39→14:30)
[2019-12-08] MEDS: PHENYTOIN NA EXTENDED 100 MG CAPSULE (FP) PO SCH ×2 (05:39→14:30)
[2019-12-08] MEDS: BACLOFEN 10 MG TABLET (FP) PO SCH ×2 (05:39→13:20)
[2019-12-08] MEDS: DOCUSATE SODIUM 100 MG CAPSULE (FP) PO SCH ×2 (05:39→14:30)
[2019-12-08] MEDS: oxyCODONE HCL 5 MG TABLET PO PRN ×2 (05:41→13:18)
--- NOTE | 2019-12-08 07:37 | DS ---
Physical Examination Vital Signs: Vital Signs Temperature 98.8 F 12/08/19 06:00 Pulse Rate 83 12/08/19 06:00 Respiratory Rate 20 12/08/19 06:00 Blood Pressure 125/71 12/08/19 06:00 O2 Sat by Pulse Oximetry (%) 98 12/07/19 20:34 Findings/Remarks: FEELS BETTER BERG TO BE DISCONTINUED NOW WALKING AND TALKING NO DISTRESS Constitutional: Yes: No Distress Cardiovascular: Yes: Regular Rate and Rhythm Respiratory: Yes: CTA Bilaterally Gastrointestinal: Yes: Soft Renal/: Yes: Berg Present Musculoskeletal: Yes: Back Pain Edema: No Psychiatric: Yes: Other (ANXIETY) Labs: CBC, BMP 12/07/19 06:06 12/07/19 06:06 Discharge Summary Problems reviewed: Yes Reason For Visit: LOW BACK PAIN Current Active Problems Acute blood loss as cause of postoperative anemia (Acute) Anemia (Acute) Back pain (Acute) Fall (Acute) Insomnia due to mental disorder (Acute) Postoperative urinary retention (Acute) Prophylactic measure (Acute) S/P lumbar fusion (Acute) Procedures: Principal: LUMBAR L2-3 SURGERY AND LUMBAR EXPLORATORY Hospital Course: ADMITTED FOR WORSENING NEUROPATHY REQUIRING LUMBAR SURGERY RECOVERY WENT WELL WILL NOW SEND TO SNF Plan of Treatment: SNF PLACEMENT Goals: DC BERG NEEDS PT AND PSYCHIATRY F/U MONITOR LABS, H/H Condition: Good - Instructions Diet, Activity, Other Instructions: SNF PLACEMENT MONITOR LABS.DILANTIN LEVELS CBC, ANEMIA FOLLOW UP BE AWARE OF OPIOD AND AMBIEN AND BENZODIAZAPINE COMBINATIONS USE CAREFULLY! Referrals: Leela Brennan MD [Primary Care Provider] - Disposition: [facility] - Home Medications Comprehensive Discharge Medication List: Ambulatory Orders Amlodipine Besylate [Norvasc -] 10 mg PO DAILY #30 tablet 03/27/17 Phenytoin Na Extended [Dilantin -] 100 mg PO TID #0 cap 09/14/17 Zolpidem Tartrate [Ambien] 10 mg PO HS PRN tablet MDD 1 09/14/17 Quetiapine Fumarate [Seroquel -] 200 tab PO HS 12/31/17 cloNIDine HCL [Catapres -] 0.1 mg PO TID 12/31/17 Aspirin [Aspirin EC] 1 tab PO DAILY 11/29/19 Losartan Potassium [Cozaar] 100 mg PO DAILY 11/29/19 Gabapentin [Neurontin] 800 mg PO TID 11/30/19 Acetaminophen [Tylenol .Regular Strength -] 650 mg PO Q6H PRN tablet 12/05/19 Baclofen [Lioresal -] 10 mg PO TID tablet 12/05/19 Diazepam [Valium] 5 mg PO BID tablet MDD 2 12/05/19 Diphenhydramine HCl [Benadryl Capsule -] 25 mg PO Q6H PRN capsule 12/05/19 Docusate Sodium [Colace -] 100 mg PO TID capsule 12/05/19 Ferrous Sulfate [Feosol] 325 mg PO DAILY ud 12/05/19 Folic Acid - 1 mg PO DAILY tablet 12/05/19 Gabapentin [Neurontin -] 900 mg PO TID capsule 12/05/19 Heparin - 5,000 unit SQ TID vial 12/05/19 Polyethylene Glycol 3350 [Miralax 119 gm Btl -] 17 gm PO DAILY bottle 12/05/19 Sennosides [Senna -] 2 tab PO HS PRN tablet 12/05/19 oxyCODONE HCL [Roxicodone -] 5 mg PO Q3H PRN tablet MDD 7 12/05/19 oxyCODONE SR [Oxycontin] 10 mg PO BID #60 tab.er.12h MDD 2 12/05/19 Prescription Drug Monitoring Program (I-STOP) results: I-STOP not reviewed
[2019-12-08] MEDS: FERROUS SO4 325 MG TABLET (FP) PO SCH (09:44)
[2019-12-08] MEDS: GABAPENTIN 300 MG CAPSULE PO SCH ×2 (09:44→13:20)
[2019-12-08] MEDS: TAMSULOSIN HCL 0.4 MG CAP PO SCH (09:45)
[2019-12-08] MEDS: diazePAM 5 MG TABLET PO SCH (09:45)
[2019-12-08] MEDS: LOSARTAN POTASSIUM 50 MG TABLET (FP) PO SCH (09:45)
[2019-12-08] MEDS: oxyCODONE HCL 10 MG SUSTAINED ACTING TABLET PO SCH (09:45)
[2019-12-08] MEDS: ASPIRIN COATED 81 MG TABLET.EC PO SCH (09:45)
[2019-12-08] MEDS: amLODIPine BESYLATE 5 MG TABLET (FP) PO SCH (09:45)
[2019-12-08] MEDS: FOLIC ACID 1 MG TABLET (FP) PO SCH (09:47)
[2019-12-08] MEDS: POLYETHYLENE GLYCOL 3350 119 GM BTL PO SCH (10:30)
--- NOTE | 2019-12-08 10:35 | PN ---
Progress Note (short form) - Note Progress Note: Neurosurgery 64yo F s/p L4-S1 exploration and hardware reinsertion, with L2-L4 PLIF. Pt seen and examined at bedside. Pt complains of lumbar pain, but states she has been getting her pain medications regularly. Denies leg weakness or numbness. Pt states she had a BM this morning and louie was removed. Pt is scheduled for discharge to rehab today, if bed is available. Last Vital Signs Temp Pulse Resp BP Pulse Ox 98.8 F 83 20 125/71 98 12/08/19 06:00 12/08/19 06:00 12/08/19 06:00 12/08/19 06:00 12/07/19 20:34 CBC, BMP 12/07/19 06:06 12/07/19 06:06 PE: Gen: A&O x3 Resp: breathing comfortably Back: dressing clean Ext: no weakness or numbness. Problem List - Problems (1) S/P lumbar fusion Assessment/Plan: Plan -pt appears to be doing well, and is cleared from surgical standpoint -pt should follow up in the office in [address] Whitley Pt discussed with Dr. Whitley, who agrees with plan Code(s): Z98.1 - ARTHRODESIS STATUS (2) Acute blood loss as cause of postoperative anemia Code(s): D62 - ACUTE POSTHEMORRHAGIC ANEMIA
[2019-12-08] MEDS: Methylnaltrexone Bromide 12 MG/0.6 ML KIT SQ SCH (13:20)
[2019-12-08 15:35] VITALS: BP 104/62; PULSE 92; TEMP 98.4
--- NOTE | 2019-12-08 15:52 | PN ---
Progress Note (short form) - Note Progress Note: s: no chest pain, palps, dizziness, dyspnea. stable back pain Current Medications Acetaminophen (Tylenol -) 650 mg PO Q4H PRN PRN Reason: PAIN Last Admin: 12/04/19 20:10 Dose: 650 mg Acetaminophen (Tylenol -) 650 mg PO Q6H PRN PRN Reason: FEVER Amlodipine Besylate (Norvasc -) 5 mg PO DAILY [facility] Last Admin: 12/08/19 09:45 Dose: 5 mg Aspirin (Ecotrin -) 81 mg PO DAILY [facility] Last Admin: 12/08/19 09:45 Dose: 81 mg Baclofen (Lioresal -) 10 mg PO TID [facility] Last Admin: 12/08/19 13:20 Dose: 10 mg Clonidine (Catapres -) 0.1 mg PO TID [facility] Last Admin: 12/08/19 05:39 Dose: 0.1 mg Diazepam (Valium -) 5 mg PO BID [facility] Last Admin: 12/08/19 09:45 Dose: 5 mg Diphenhydramine HCl (Benadryl Injection -) 25 mg IVPUSH ONCE PRN PRN Reason: FOR ITCHING Diphenhydramine HCl (Benadryl -) 25 mg PO Q6H PRN PRN Reason: FOR ITCHING Docusate Sodium (Colace -) 100 mg PO TID [facility] Last Admin: 12/08/19 05:39 Dose: 100 mg Ferrous Sulfate (Feosol -) 325 mg PO DAILY [facility] Last Admin: 12/08/19 09:44 Dose: 325 mg Folic Acid (Folic Acid -) 1 mg PO DAILY [facility] Last Admin: 12/08/19 09:47 Dose: 1 mg Gabapentin (Neurontin -) 900 mg PO QID [facility] Last Admin: 12/08/19 13:20 Dose: 900 mg Heparin Sodium (Porcine) (Heparin -) 5,000 unit SQ TID [facility] Last Admin: 12/08/19 05:38 Dose: 5,000 unit Cefazolin Sodium 1 gm/ (Dextrose) 50 mls @ 100 mls/hr IVPB Q8H-IV [facility] Last Admin: 12/08/19 09:46 Dose: 100 mls/hr Losartan Potassium (Cozaar -) 50 mg PO DAILY [facility] Last Admin: 12/08/19 09:45 Dose: 50 mg Methylnaltrexone [place] (Relistor -) 12 mg SQ DAILY [facility] Last Admin: 12/08/19 13:20 Dose: 12 mg Naloxone HCl (Narcan -) 0.4 mg IVPUSH ONCE PRN PRN Reason: Sedation Ondansetron HCl (Zofran Injection) 4 mg IVPUSH ONCE PRN PRN Reason: NAUSEA Last Admin: 12/02/19 21:00 Dose: 4 mg Ondansetron HCl (Zofran Injection) 4 mg IVPUSH Q6H PRN PRN Reason: NAUSEA Last Admin: 12/03/19 13:10 Dose: 4 mg Oxycodone HCl (Roxicodone -) 5 mg PO Q3H PRN PRN Reason: Mild Pain 1-3 Last Admin: 12/08/19 13:18 Dose: 5 mg Oxycodone HCl (Oxycontin -) 10 mg PO BID [facility] Last Admin: 12/08/19 09:45 Dose: 10 mg Phenytoin Sodium (Dilantin -) 100 mg PO TID [facility] Last Admin: 12/08/19 05:39 Dose: 100 mg Polyethylene Glycol (Miralax (For Daily Use) -) 17 gm PO DAILY [facility] Last Admin: 12/07/19 10:34 Dose: 17 gm Quetiapine Fumarate (Seroquel -) 200 mg PO HS [facility] Last Admin: 12/07/19 22:59 Dose: 200 mg Senna (Senna -) 2 tab PO HS PRN PRN Reason: CONSTIPATION Last Admin: 12/05/19 22:15 Dose: 2 tab Tamsulosin HCl (Flomax -) 0.4 mg PO DAILY@0830 [facility] Last Admin: 12/08/19 09:45 Dose: 0.4 mg Vital Signs Period Temp Pulse Resp BP Sys/[place] Pulse Ox Last 24 Hr 98.4 F-100.6 F 82-92 20-20 95-125/52-71 98-98 Constitutional: Yes: No Distress, Calm Cardiovascular: Yes: Regular Rate and Rhythm Respiratory: Yes: CTA Bilaterally Edema: No soft, nt, nd + bs aox3 not agitated no jaundice, diaphoresis Assessment/Plan back pain, s/p lumbar surgery L4-S1 exploration and hardware reinsertion, L2-L4 PLIF: - manage per surgery anemia: - monitor H/H, transfuse per surgery Palpitations, PVCs: - PVCs noted on EKG - nl EF on recent echo - no events on tele, now dc'ed HTN: - cont current meds non-obstx CAD: - cath 02/2011 with mild LAD myocardial bridge, no , EF 60% - cont aspirin Fever: as per PMD and N-surgery.
--- NOTE | 2019-12-11 15:31 | SURG ---
Surgery Executive Officer Note Executive Officer: Zeyad Andres PA-C Date of Service: 12/02/19 Diagnosis: L2/3 and L3/4 stenosis, instability and facet arthopathy above L4-S1 fusion with suboptimal hardware postioning and anemia Procedure: 1. Bilateral Laminectomies L2/3 2. Bilateral laminectomies L3/4 3. Bilateral reoperative exposure L4/5 4. Bilateral reoperative exposure L5/S1 5. L2/3 transpedicular approach 6. L3/4 transpedicular approach 7. Fluoroscopy 8. Microdissection 9. Exploration of spinal fusion 10. Interbody cage L2/3 11. Interbody cage L3/4 12. Interbody and posterior/lateral arthrodesis L2/3 13. Interbody and posterior/lateral arthrodesis L3/4 14. Posterior/lateral arthodesis L4/5 15. Posterior/lateral arthrodesis L5/S1 16. L2-S1 Posterior segmental instrumentation (technically challenging) 17. Local autograft 18. Repair of durotomy 19. L2 Osteotomy 20. L3 Osteotomy 21. L4 Osteotomy 22. L5 Osteotomy 23. S1 Osteotomy 24. Removal posterior segmental instrumentation 25. Bilateral soft tissue advancement flaps (50cm^2) I was present for the entirety of the operative procedure. For further detail, please refer to operative report. Visit type - Case Type Case Type: ED Admission - Emergency Emergency Visit: Yes ED Registration Date: 11/29/19 Care time: The patient presented to the Emergency Department on the above date and was hospitalized for further evaluation of their emergent condition. - New patient This patient is new to me today: Yes Date on this admission: 12/11/19 - Critical Care Critical Care patient: No
== END 2019-12-08 17:30 | disposition home health service (06) | DRG 454 ==
LOC: JER 10:33 → JERBED 18:15 → J5S 22:22 → J4W 12-02 21:55
PROVIDERS: ADMIT Family Medicine; ATTEND Family Medicine
PROC: 0SG10J1 Fusion of 2 or more Lumbar Vertebral Joints with Synthetic Substitute, Posterior Approach, Posterior Column, Open Approach (ICD-10-PCS; 2019-12-02)
PROC: 0SP304Z Removal of Internal Fixation Device from Lumbosacral Joint, Open Approach (ICD-10-PCS; 2019-12-02)
PROC: 0SG30J1 Fusion of Lumbosacral Joint with Synthetic Substitute, Posterior Approach, Posterior Column, Open Approach (ICD-10-PCS; 2019-12-02)
PROC: 30233N1 Transfusion of Nonautologous Red Blood Cells into Peripheral Vein, Percutaneous Approach (ICD-10-PCS; 2019-12-02)
PROC: 0SG10AJ Fusion of 2 or more Lumbar Vertebral Joints with Interbody Fusion Device, Posterior Approach, Anterior Column, Open Approach (ICD-10-PCS; principal; 2019-12-02 11:00)
DX: T84.028A Dislocation of other internal joint prosthesis, initial encounter (principal); D62 Acute posthemorrhagic anemia; I48.91 Unspecified atrial fibrillation; I25.10 Atherosclerotic heart disease of native coronary artery without angina pectoris; I10 Essential (primary) hypertension; E78.5 Hyperlipidemia, unspecified; M54.5 Low back pain; G40.909 Epilepsy, unspecified, not intractable, without status epilepticus; K52.9 Noninfective gastroenteritis and colitis, unspecified; G62.9 Polyneuropathy, unspecified; G47.00 Insomnia, unspecified; G43.909 Migraine, unspecified, not intractable, without status migrainosus; Z87.891 Personal history of nicotine dependence; Z90.89 Acquired absence of other organs
CPT/HCPCS: 36415; 36430; 36511; 72125-TC; 72128-TC; 72131-TC; 72141-TC; 72148-TC; 80048; 80053; 80185; 82607; 82728; 83540; 83550; 83735; 84100; 84439; 84443; 85025; 85027; 85610; 85730; 86850; 86900; 86901; 86922; 87040; 87086; 93005; 93010; 94760; 97116-GP; 97162-GP; 99283-25; G0008; J0131; J0475; J0735; J1644; J7030; P9038; P9058; Q2036

== ENCOUNTER 2020-06-27 11:07 | Inpatient (IN) | payer OTHER ==
--- NOTE | 2020-06-27 11:40 | PDOC ---
History of Present Illness - General Chief Complaint: Blood Pressure Problem Stated Complaint: HEADACHE Time Seen by Provider: 06/27/20 11:34 - History of Present Illness Initial Comments: 06/27/20 11:40 HPI: 64 y/o M with hx of CAD, AFib (on aspirin only), HTN, HLD, SBO, asthma, seizures, and chronic back pain presenting with recent C2-C7 laminectomy 2 months ago coming with 1 week of left frontal and occipital headache worsening over the past 2 days as well as numbness in her left neck/trapezius radiating to her head. Pain is not improved with tylenol at home. She also reports nausea but no emesis. She denies radiation into her left arm or back, denies chest pain, SOB, palp, abd pain, incontinence, weakness. PMHx: as noted above ROS: as noted SHx: Denies tobacco use; no alcohol use; no rec drugs Allergies: NKDA ROS: GENERAL/CONSTITUTIONAL: No fever or chills. No weakness. HEAD, EYES, EARS, NOSE AND THROAT: No change in vision. No ear pain or discharge. No sore throat. CARDIOVASCULAR: No chest pain or shortness of breath RESPIRATORY: No cough, wheezing, or hemoptysis. GASTROINTESTINAL: +nausea; no vomiting, diarrhea or constipation. GENITOURINARY: No dysuria, frequency, or change in urination. MUSCULOSKELETAL: +neck pain SKIN: No rash NEUROLOGIC: +headache; no vertigo, loss of consciousness, or change in strength/sensation. ENDOCRINE: No increased thirst. No abnormal weight change HEMATOLOGIC/LYMPHATIC: No anemia, easy bleeding, or history of blood clots. ALLERGIC/IMMUNOLOGIC: No hives or skin allergy. PE: GENERAL: Awake, alert, and fully oriented, mild acute distress HEAD: No signs of trauma, normocephalic, atraumatic EYES: EOMI, sclera anicteric, conjunctiva clear ENT: Auricles normal inspection, hearing grossly normal, nares patent, oropharynx clear without exudates. Moist mucosa NECK: Cervical collar in place, cervical midline ttp LUNGS: No increased work of breathing, symmetrical chest rise, clear to auscultation bilaterally, no wheezes, crackles or rhonchi HEART: Regular rate, regular rhythm, normal S1 and S2, no murmur, peripheral pulses 2+ and equal bilaterally. ABDOMEN: Soft, nondistended, nontender. No guarding, no rebound. No masses. No CVAT MUSCULOSKELETAL: FROM NEUROLOGICAL: Cranial nerves II through XII grossly intact. Normal speech, stable gait, right sided str 5/5, left sided UE and LE 4/5 str with BL intact sensation SKIN: Warm, Dry, normal turgor, no rashes or lesions noted Past History - Medical History Allergies/Adverse Reactions: Allergies Allergy/AdvReac Type Severity Reaction Status Date / Time No Known Allergies Allergy Verified 06/27/20 11:19 Home Medications: Ambulatory Orders Phenytoin Na Extended [Dilantin -] 100 mg PO TID #0 cap 09/14/17 Zolpidem Tartrate [Ambien] 10 mg PO HS PRN tablet MDD 1 09/14/17 Aspirin [Aspirin EC] 1 tab PO DAILY 11/29/19 Amlodipine Besylate [Norvasc -] 10 mg PO DAILY #30 tablet 12/08/19 Losartan Potassium [Cozaar] 100 mg PO DAILY #30 tablet 12/08/19 Quetiapine Fumarate [Seroquel -] 200 tab PO HS #30 tablet 12/08/19 cloNIDine HCL [Catapres -] 0.1 mg PO TID #90 tablet 12/08/19 Acetaminophen [Tylenol .Regular Strength -] 650 mg PO Q6H PRN tablet 04/27/20 Folic Acid - 1 mg PO DAILY #30 tablet 04/27/20 Gabapentin [Neurontin -] 800 mg PO TID 06/27/20 Anemia: No Asthma: Yes Cancer: No Cardiac Disorders: Yes (afib) CVA: No COPD: No CHF: No Dementia: No Diabetes: No GI Disorders: Yes (COLITIS) Disorders: No HTN: Yes Hypercholesterolemia: Yes Liver Disease: No Seizures: Yes (Epilepsy-last seizure 2015) Thyroid Disease: No - Surgical History Abdominal Surgery: No Appendectomy: Yes Cardiac Surgery: No Cholecystectomy: No Lung Surgery: No Neurologic Surgery: Yes (lumbar spine) Orthopedic Surgery: Yes (both knee replacement) - Reproductive History Is Patient Now?: No - Immunization History Immunization Up to Date: Yes - Psycho-Social/Smoking History Smoking Status: No Smoking History: Former smoker Years of Tobacco Use: 10 Have you smoked in the past 12 months: No Number of Cigarettes Smoked Daily: 0 If you are a former smoker, when did you quit?: - smoked 1ppwk for about 10 yrs Information on smoking cessation initiated: No - Substance Abuse Hx (Audit-C & DAST Scrn) How often the patient has a drink containing alcohol: Monthly or less Number of drinks the patient has on a typical day: 1 or 2 How often the patient has six or more drinks on one occasion: Never Score: In Men: 4 or > Positive; In Women: 3 or > Positive: 1 Screen Result (Pos requires Nsg. Audit-10AR): Negative In the last yr the pt used illegal drug/Rx for NonMed reason: No Score: Yes response is considered Positive: 0 Screen Result (Positive result requires Nsg. DAST-10): Negative *Physical Exam - Vital Signs Last Vital Signs Temp Pulse Resp BP Pulse Ox 98.5 F 83 18 172/99 H 100 06/27/20 11:20 06/27/20 11:20 06/27/20 11:20 06/27/20 11:20 06/27/20 11:20 ED Treatment Course - LABORATORY CBC & Chemistry Diagram: 06/27/20 12:00 06/27/20 12:00 Medical Decision Making - Medical Decision Making 06/27/20 13:19 64 y/o M with hx of CAD, AFib (on aspirin only), HTN, HLD, SBO, asthma, seizures, and chronic back pain presenting with recent C2-C7 laminectomy 2 months ago coming with 1 week of left frontal and occipital headache worsening over the past 2 days as well as numbness in her left neck/trapezius radiating to her head. VSS, AF. PE with right sided str 5/5, left sided UE and LE 4/5 str with BL intact sensation -cbc, cmp, t&s, coags, ekg, CT head, CT c spine -tylenol, oxy -consult Dr Rakan Whitley and recommending CTs and MRI if no significant findings 06/27/20 13:22 CT head and c spine with no obvious deformities will proceed with MRI; required valium in the past; will give 5mg po 06/27/20 16:33 MRI C Spine: IMPRESSION: 1. There are postoperative changes of posterior laminectomy and fusion from C3 2 through C7 as described in the findings. 2. Small focus of T2 signal hyperintensity in the left side of the cervical spinal cord at the level of the C6-7 disc space is compatible with a small focus of cord edema and/or myelomalacia. This was not present on the MRI cervical spine to 12/01/2019. 3. Mild degenerative spinal canal stenosis at C4-5, C5-6 and C6-7. At C6-7, there is a small central disc osteophyte complex which flattens the ventral thecal sac and contacts the ventral cervical cord. discussed with dr Hernandez; will give 6mg decadron q6hr; pepcid 20mg iv daily; NPO after midnight potential OR tomorrow will admit 06/27/20 17:[address] teran Discharge - Discharge Information Problems reviewed: Yes Clinical Impression/Diagnosis: Cervical spinal cord compression Condition: Guarded - Admission Yes - Follow up/Referral Referrals: Yariel Springer [Primary Care Provider] - - Patient Discharge Instructions - Post Discharge Activity
[2020-06-27] MEDS ORDERED: ACETAMINOPHEN 500 MG TABLET (FP) PO ONE (11:56)
[2020-06-27] MEDS ORDERED: ACETAMINOPHEN 325 MG TABLET (FP) ONE (11:59)
[2020-06-27] MEDS ORDERED: oxyCODONE HCL 5 MG TABLET PO ONE (12:04)
[2020-06-27] MEDS ORDERED: oxyCODONE HCL 5 MG TABLET ONE ×2 (12:15→20:36)
[2020-06-27 12:38] LABS: BASO % 1.3 % (0-2.0); EOS % 2.2 % (0-4.5); HEMATOCRIT 37.5 % (32.4-45.2); HEMOGLOBIN 12.4 GM/dL (10.7-15.3); LYMPH % 35.9 % (8-40); MCH 31.9 pg (25.7-33.7); MCHC 33.1 g/dl (32.0-36.0); MEAN CELL VOLUME 96.1 fl (80-96); MEAN PLT VOLUME 10.7 fl (7.5-11.1); MONO % 6.9 % (3.8-10.2); NEUT % 53.7 % (42.8-82.8); PLATELET COUNT 160 K/MM3 (134-434); RDW 13.8 % (11.6-15.6); WHITE BLOOD COUNT 4.8 K/mm3 (4.0-10.0)
--- NOTE | 2020-06-27 12:54 | PDOC ---
Attending Attestation - Resident Resident Name: Carlton Pires - ED Attending Attestation I have performed the following: I have examined & evaluated the patient, The case was reviewed & discussed with the resident, I agree w/resident's findings & plan, Exceptions are as noted - HPI HPI: 64 yo M history CAD, afib, HTN, HL, SBO, asthma, seizures, chronic back pain, s/p C2-7 laminectomy 2 months ago presents with 1 week history of L frontal and occipital headache, worsening for 2 days, associated with numbness to L neck and head. She has been taking tylenol without relief. No LOC, cp, SOB, extremity pain, incontinence, weakness. - Physicial Exam PE: GENERAL: Awake, alert, and fully oriented, in no acute distress HEAD: No signs of trauma EYES: PERRLA, EOMI, sclera anicteric, conjunctiva clear ENT: Auricles normal inspection, hearing grossly normal, nares patent, oropharynx clear without exudates. Moist mucosa NECK: Normal ROM, supple, no lymphadenopathy, JVD, or masses. C-collar in place. +Well-healed surgical scar to the posterior neck, +midline tenderness at ~C7. No overlying skin changes. LUNGS: Breath sounds equal, clear to auscultation bilaterally. No wheezes, and no crackles HEART: Regular rate and rhythm, normal S1 and S2, no murmurs, rubs or gallops ABDOMEN: Soft, nontender, normoactive bowel sounds. No guarding, no rebound. No masses EXTREMITIES: Normal range of motion, no edema. No clubbing or cyanosis. No cords, erythema, or tenderness NEUROLOGICAL: Cranial nerves II through XII grossly intact. Normal speech. Motor and sensation intact SKIN: Warm, dry, normal turgor, no rashes or lesions noted. - Medical Decision Making 06/27/20 14:13 Late entry. Given history of recent surgery, case was discussed with Dr. Whitley via phone, recommended CTH and c-spine followed by MRI. He states CVA would be biggest concern. CTH and c-spine with no acute findings, however, CT c- spine limited by hardware. MRIs obtained, pending. 06/27/20 16:38 Pt noted to have fluid collection on MRI of c-spine. D/w Dr. Choudhri, will plan for admission. Discharge - Discharge Information Problems reviewed: Yes Clinical Impression/Diagnosis: Cervical spinal cord compression Condition: Guarded - Follow up/Referral - Patient Discharge Instructions - Post Discharge Activity
[2020-06-27 13:02] LABS: BILIRUBIN,TOTAL 0.3 mg/dL (0.2-1); BLOOD UREA NITROGEN 9.4 mg/dL (7-18); CREATININE 0.7 mg/dL (0.55-1.3); POTASSIUM 4.7 mmol/L (3.5-5.1); TOT PROT 7.7 g/dl (6.4-8.2)
[2020-06-27 13:16] LABS: ERYTHROCYTE SEDIMENTATION RATE 16 mm/hr (0-30)
[2020-06-27] MEDS ORDERED: diazePAM 5 MG TABLET ONE (13:20)
[2020-06-27] MEDS ORDERED: diazePAM 5 MG TABLET PO ONE (13:20)
[2020-06-27 13:21] LABS: INR 0.9 (0.83-1.09); PROTHROMBIN TIME (PATIENT) 10.6 SEC (9.7-13.0)
[2020-06-27 13:24] LABS: ACTIVATED PTT 36.4 SECONDS (25.2-36.5)
[2020-06-27] MEDS ORDERED: FAMOTIDINE 20 MG/50 ML IVPB 20 MG/50 ML MG IVPB ONE ×2 (16:10→17:00)
[2020-06-27] MEDS ORDERED: DEXAMETHASONE SOD PHOSPHATE 10 MG/1 ML VIAL ONE (17:00)
[2020-06-27] MEDS: DEXAMETHASONE SOD PHOSPHATE 4 MG/1 ML VIAL IVPUSH SCH ×2 (17:05→21:40)
[2020-06-27] MEDS ORDERED: amLODIPine BESYLATE 10 MG TABLET (FP) PO ONE (17:12)
[2020-06-27] MEDS ORDERED: PHENYTOIN NA EXTENDED 100 MG CAPSULE (FP) PO ONE (17:12)
[2020-06-27] MEDS ORDERED: cloNIDine HCL 0.1 MG TABLET PO ONE (17:12)
[2020-06-27] MEDS ORDERED: morphine CARPU-JECT 4 MG/1 ML DISP.SYRIN IVPUSH ONE (17:14)
[2020-06-27] MEDS ORDERED: amLODIPine BESYLATE 5 MG TABLET (FP) ONE (17:16)
[2020-06-27] MEDS ORDERED: morphine SULFATE 4 MG/ML VIAL ONE (17:16)
[2020-06-27] MEDS ORDERED: cloNIDine HCL 0.1 MG TABLET ONE ×2 (17:17→21:37)
[2020-06-27] MEDS ORDERED: PHENYTOIN NA EXTENDED 100 MG CAPSULE (FP) ONE ×2 (17:17→21:38)
[2020-06-27] MEDS ORDERED: ACETAMINOPHEN 325 MG TABLET (FP) PO PRN ×2 (18:32→19:00)
[2020-06-27] MEDS ORDERED: NITROGLYCERIN 2% OINTMENT - 1GM PACKET TD PRN (18:34)
--- NOTE | 2020-06-27 18:46 | HP ---
CHIEF COMPLAINT: intractable headache and neck pain PCP: Yariel Springer HISTORY OF PRESENT ILLNESS: 64 y/o lady with hx of CAD, AFib (on aspirin only), HTN, HLD, SBO, asthma, seizures, and chronic back pain, recent C2-C7 laminectomy (january 2020) presented with 2 week of left frontal and occipital headache wor sening gradually started as numbness in her left neck/trapezius radiating to her head about one month ago. Pain is not improved with tylenol at home. She also reports nausea but no emesis. She denies radiation into her left arm or back, denies chest pain, SOB, palp, abd pain, incontinence. pt noted weakness in her lt leg but no numbness. denies falls, LOC, palpitation or dizziness ER course was notable for: (1) Small focus of T2 signal hyperintensity in the left side of the cervical spinal cord at the level of the C6-7 disc space is compatible with a small focus of cord edema and/or myelomalacia (2) neurosurgery consulted (3) Recent Travel: no PAST MEDICAL HISTORY: see hpi PAST SURGICAL HISTORY: see hpi Social History: Smoking:denies Alcohol: denies Drugs: denies Allergies KNDA No Known Allergies Allergy (Verified 06/27/20 11:19) HOME MEDICATIONS: Home Medications Medication Instructions Recorded Phenytoin Na Extended [Dilantin -] 100 mg PO TID #0 cap 09/14/17 Zolpidem Tartrate [Ambien] 10 mg PO HS PRN tablet MDD 1 09/14/17 Aspirin [Aspirin EC] 1 tab PO DAILY 11/29/19 Amlodipine Besylate [Norvasc -] 10 mg PO DAILY #30 tablet 12/08/19 Losartan Potassium [Cozaar] 100 mg PO DAILY #30 tablet 12/08/19 Quetiapine Fumarate [Seroquel -] 200 tab PO HS #30 tablet 12/08/19 cloNIDine HCL [Catapres -] 0.1 mg PO TID #90 tablet 12/08/19 Acetaminophen [Tylenol .Regular 650 mg PO Q6H PRN tablet 04/27/20 Strength -] Folic Acid - 1 mg PO DAILY #30 tablet 04/27/20 Gabapentin [Neurontin -] 800 mg PO TID 06/27/20 REVIEW OF SYSTEMS CONSTITUTIONAL: Absent: fever, chills, diaphoresis, generalized weakness, malaise, loss of appetite, weight change HEENT: Absent: rhinorrhea, nasal congestion, throat pain, throat swelling, difficulty swallowing, mouth swelling, ear pain, eye pain, visual changes CARDIOVASCULAR: Absent: chest pain, syncope, palpitations, irregular heart rate, lightheadedness, peripheral edema RESPIRATORY: Absent: cough, shortness of breath, dyspnea with exertion, orthopnea, wheezing, stridor, hemoptysis GASTROINTESTINAL: Absent: abdominal pain, abdominal distension, nausea, vomiting, diarrhea, constipation, melena, hematochezia GENITOURINARY: Absent: dysuria, frequency, urgency, hesitancy, hematuria, flank pain, genital pain MUSCULOSKELETAL: Absent: myalgia, arthralgia, joint swelling, back pain, neck pain SKIN: Absent: rash, itching, pallor HEMATOLOGIC/IMMUNOLOGIC: Absent: easy bleeding, easy bruising, lymphadenopathy, frequent infections ENDOCRINE: Absent: unexplained weight gain, unexplained weight loss, heat intolerance, cold intolerance NEUROLOGIC: see HPI PSYCHIATRIC: Absent: anxiety, depression, suicidal or homicidal ideation, hallucinations. PHYSICAL EXAMINATION Vital Signs - 24 hr 06/27/20 06/27/20 06/27/20 11:20 11:47 12:51 Temperature 98.5 F Pulse Rate 83 Pulse Rate [ Apical] Respiratory 18 Rate Blood Pressure 172/99 H Blood Pressure 165/105 H [Right Arm] O2 Sat by Pulse 100 98 Oximetry (%) 06/27/20 06/27/20 17:25 18:30 Temperature Pulse Rate Pulse Rate [ 79 70 Apical] Respiratory 19 19 Rate Blood Pressure Blood Pressure 185/105 H 159/101 H [Right Arm] O2 Sat by Pulse 99 99 Oximetry (%) GENERAL: Awake, alert, and fully oriented, mild acute distress HEAD: No signs of trauma, normocephalic, atraumatic EYES: EOMI, sclera anicteric, conjunctiva clear ENT: Auricles normal inspection, hearing grossly normal, nares patent, oropharyn x clear without exudates. Moist mucosa NECK: Cervical collar in place, cervical midline ttp LUNGS: No increased work of breathing, symmetrical chest rise, clear to auscultation bilaterally, no wheezes, crackles or rhonchi HEART: Regular rate, regular rhythm, normal S1 and S2, no murmur, peripheral pulses 2+ and equal bilaterally. ABDOMEN: Soft, nondistended, nontender. No guarding, no rebound. No masses. No CVAT MUSCULOSKELETAL: FROM NEUROLOGICAL: Cranial nerves II through XII grossly intact. Normal speech, stable gait, right sided str 5/5, left sided UE and LE 4/5 str with BL intact sensation SKIN: Warm, Dry, normal turgor, no rashes or lesions noted Laboratory Results - last 24 hr 06/27/20 06/27/20 06/27/20 12:00 12:00 12:00 WBC 4.8 RBC 3.90 Hgb 12.4 Hct 37.5 D MCV 96.1 H MCH 31.9 MCHC 33.1 RDW 13.8 D Plt Count 160 MPV 10.7 Absolute Neuts (auto) 2.6 Neutrophils % 53.7 Lymphocytes % 35.9 Monocytes % 6.9 Eosinophils % 2.2 Basophils % 1.3 Nucleated RBC % 0 ESR 16 PT with INR INR PTT (Actin FS) Sodium 142 Potassium 4.7 Chloride 111 H Carbon Dioxide 27 Anion Gap 4 L BUN 9.4 Creatinine 0.7 Est GFR (CKD-EPI)AfAm 105.38 Est GFR (CKD-EPI)NonAf 90.92 Random Glucose 86 Calcium 9.0 Total Bilirubin 0.3 AST 29 ALT 20 Alkaline Phosphatase 119 H C-Reactive Protein 0.4 H Total Protein 7.7 Albumin 4.0 Blood Type O POSITIVE Antibody Screen Negative 06/27/20 12:52 WBC RBC Hgb Hct MCV MCH MCHC RDW Plt Count MPV Absolute Neuts (auto) Neutrophils % Lymphocytes % Monocytes % Eosinophils % Basophils % Nucleated RBC % ESR PT with INR 10.60 INR 0.90 PTT (Actin FS) 36.4 Sodium Potassium Chloride Carbon Dioxide Anion Gap BUN Creatinine Est GFR (CKD-EPI)AfAm Est GFR (CKD-EPI)NonAf Random Glucose Calcium Total Bilirubin AST ALT Alkaline Phosphatase C-Reactive Protein Total Protein Albumin Blood Type Antibody Screen ASSESSMENT/PLAN: 64 y/o lady with hx of CAD, AFib (on aspirin only), HTN, HLD, SBO, asthma, seizures, and chronic back pain, recent C2-C7 laminectomy (january 2020) presented with 2 week of left frontal and occipital headache # Cervial spinal cord edema/Myelomalacia recent lamenictomy MRi showing Small focus of T2 signal hyperintensity in the left side of the cervical spinal cord at the level of the C6-7 disc space is compatible with a small focus of cord edema and/or myelomalacia. This was not present on the MRI cervical spine to 12/01/2019. Mild degenerative spinal canal stenosis at C4-5, C5- 6 and C6-7. At C6-7, there is a small central disc osteophyte complex which flattens the ventral thecal sac and contacts the ventral cervical cord. neurosurgeon contacted and advised Decadron 6mg q6h lt sided weakness noted pain management as indicated neurosurgeon consulted HTN AFib not on AC CAD HLD h/o SBO (last BM this AM) Asthma chronic back pain seizure disorder DVT prophylaxis Family Medical History Family History: Unremarkable Visit type - Medication Review Med list reviewed for High Risk Meds patients 65 and older: Yes (reviewed) - Emergency Visit Emergency Visit: Yes ED Registration Date: 06/27/20 Care time: The patient presented to the Emergency Department on the above date and was hospitalized for further evaluation of their emergent condition. - New Patient This patient is new to me today: Yes Date on this admission: 06/27/20 - Critical Care Critical Care patient: No
[2020-06-27] MEDS: oxyCODONE HCL 5 MG TABLET PO PRN (20:37)
[2020-06-27] MEDS ORDERED: QUEtiapine FUMARATE 100 MG TABLET (FP) ONE (21:38)
[2020-06-27] MEDS ORDERED: DEXAMETHASONE SOD PHOSPHATE 4 MG/1 ML VIAL ONE (21:38)
[2020-06-27] MEDS ORDERED: HEPARIN NA (PORCINE) 5,000 UNITS/ML 1ML VIAL ONE (21:38)
[2020-06-27] MEDS: PHENYTOIN NA EXTENDED 100 MG CAPSULE (FP) PO SCH (21:39)
[2020-06-27] MEDS: cloNIDine HCL 0.1 MG TABLET PO SCH (21:39)
[2020-06-27] MEDS: HEPARIN NA (PORCINE) 5,000 UNITS/ML 1ML VIAL SQ SCH (21:39)
[2020-06-27] MEDS ORDERED: QUEtiapine FUMARATE 200 MG TABLET PO SCH (22:00)
[2020-06-27] MEDS ORDERED: ZOLPIDEM TARTRATE 5 MG TABLET PO PRN (22:00)
[2020-06-27] MEDS: GABAPENTIN 400 MG CAPSULE PO SCH (23:02)
[2020-06-27 23:48] VITALS: BMI 25.0
[2020-06-28] MEDS: oxyCODONE HCL 5 MG TABLET PO PRN ×3 (00:59→21:17)
[2020-06-28] MEDS: DEXAMETHASONE SOD PHOSPHATE 4 MG/1 ML VIAL IVPUSH SCH ×4 (02:32→22:11)
[2020-06-28] MEDS: cloNIDine HCL 0.1 MG TABLET PO SCH ×3 (06:00→22:10)
[2020-06-28] MEDS: GABAPENTIN 400 MG CAPSULE PO SCH ×3 (06:01→22:10)
[2020-06-28] MEDS: PHENYTOIN NA EXTENDED 100 MG CAPSULE (FP) PO SCH ×3 (06:01→22:14)
[2020-06-28 08:46] LABS: HEMATOCRIT 36.1 % (32.4-45.2); MCHC 33.2 g/dl (32.0-36.0); MEAN CELL VOLUME 96.6 fl (80-96); MEAN PLT VOLUME 11.6 fl (7.5-11.1); PLATELET COUNT 65 K/MM3 (134-434); RBC 3.74 M/mm3 (3.60-5.2); RDW 13.9 % (11.6-15.6); WHITE BLOOD COUNT 3.7 K/mm3 (4.0-10.0)
[2020-06-28 08:55] LABS: ALBUMIN 3.8 g/dl (3.4-5.0); BILIRUBIN,TOTAL 0.2 mg/dL (0.2-1); BLOOD UREA NITROGEN 12.8 mg/dL (7-18); CALCIUM 9.6 mg/dL (8.5-10.1); CREATININE 0.6 mg/dL (0.55-1.3); POTASSIUM 4.1 mmol/L (3.5-5.1); TOT PROT 7.6 g/dl (6.4-8.2)
[2020-06-28] MEDS ORDERED: FOLIC ACID 1 MG TABLET (FP) PO SCH (10:00)
[2020-06-28] MEDS ORDERED: LOSARTAN POTASSIUM 50 MG TABLET (FP) PO SCH (10:00)
[2020-06-28] MEDS ORDERED: amLODIPine BESYLATE 10 MG TABLET (FP) PO SCH (10:00)
[2020-06-28] MEDS ORDERED: ASPIRIN 81 MG CHEWABLE TABLETS PO SCH (10:00)
--- NOTE | 2020-06-28 11:06 | CONSULT ---
Consult - text type - Consultation Consultation Note: NEUROSURGERY CONSULTATION Suad Carr is a 64 year old female who returned to [facility] in March 2020 after revision Lumbar fusion earlier this year. Overall the patient was doing well and reports that the incisional pain was abating. She reported significant improvement of her presenting complaints although her left foot paresthesias persisted. The incision was clean, dry and intact. I discussed wound care and bathing. I discussed further use of the brace. The patient had numbness and tingling in the hands, particularly on the Left and she feels that this was progressing. The patientwas been dropping things and had problems with fine motor tasks. She had crepitance in her neck and described a need to "crack" her neck at times stating: "I go crunch, crunch..." The patient manifested Lhermitte's phenomenon and developed electric shock like symptoms with flexion/extension of the neck. The patient had diminished hand grasp bilaterally and Left greater than RightSpurling's sign on Physical Examination. The patient walked with an antalgic and somewhatspastic gait. MRI Cervical demonstrates degenerative kyphosis and moderate to severe spondylosis with osteophytes, disc bulges and hypertrophic posterior long itudinal ligament and ligamentum flavum which when combined with a congenitally narrow spinal canal results in effacement of the ventral and dorsal CSF spaces and deformation of the Cervical spinal cord. There is degenerative kyphosis associated with Modic changes at multiple levels. The AP spinal canal diameters are: C23 = 9.3mm; C34 = 8.0mm; C45 = 7.0mm; C56 = 7.4mm; & C67 = 6.5mm. After review of these symptoms and imaging, the patient would likely benefit from decompression and stabilization in the Cervical spine. I described the risks, benefits and alternativesof C2-7 laminectomies and correction of deformity with C2-7 posterior fusionwith lateral mass/pars screwsin great detail. I explained that the risks included, but were not limited to: , coma, paralysis, bleeding, infection, CSF leak possibly requiring spinal drainage or additional surgery, failure to fuse, failure to improve, instrumentation migration/malposition/malfunction and the need for additional surgery. I offered the patient the option to seek another opinion or another surgeon. All questions were answered. Informed consent was obtained. I made a series of illustrations to outline the anatomy, pathology, surgical approachesand potential complications. Patient underwent uneventful surgery on April 23, 2020 and returned to [facility] after Posterior Cervical decompression and fusion from C3-7. Overall the patient was doing well and reported that the incisional pain was abating. She still had moderate incisional pain and was out of pain medication. Her hand symptoms improvedandsherelated no numbness or tingling. The incision was clean, dry and intact. I discussed wound care and bathing. I discussed further use of the collar and demonstrated and instructed the patient in Posterior Cervical isometric exercises. She continued to make improvements from her Lumbar revision surgery from earlier in the year. Patient has been having headaches which became severe last week. She presented to the [facility] ED last evening with complaints of headaches for 2 weeks and 2 days of progressive Left arm and leg numbness. She also had new weakness and increased tone in her Left leg. MRI demonstrates progression of the C67 HNP and CT demonstrates bilateral C45 foraminal stenosis as well as persisting prominence of her bone graft material which is unchanged since after her surgery. Given her new deficits which correlate with the MRI and CT findings, I discussed potential treatments with her. I described the risks, benefits and alternativesof circumferential revision surgery to address these findingsin great detail. The initial stage will consist of a posterior approach for reoperative exposure and exploration of her spinal fusion, removal of bone graft material and possible bilateral osteotomies/foraminotomies at C45 and C56. The second procedure will entail an anterior approach for C67 Anterior Cervical decompression and fusion. I explained that the risks included, but were not limited to: , coma, paralysis, bleeding, infection, CSF leak possibly requiring spinal drainage or additional surgery, failure to fuse, failure to improve, instrumentation migration/malposition/malfunction and the need for additional surgery. I offered the patient the option to seek another opinion or another surgeon. All questions were answered. Informed consent was obtained. I outlined the anatomy, pathology, surgical approachesand potential complications. The patient asks that we proceed as described. Patient is NPO and her COVID-19 test is negative.
--- NOTE | 2020-06-28 11:07 | PN ---
Progress Note, Physician Chief Complaint: Intractable headaches History of Present Illness: 64 y/o lady with hx of CAD, AFib (on aspirin only), HTN, HLD, SBO, asthma, seizures, and chronic back pain, recent C2-C7 laminectomy (january 2020) presented with 2 week of left frontal and occipital headache worsening gradually started as numbness in her left neck/trapezius radiating to her head about one month ago. Pain is not improved with tylenol at home. She also reports nausea but no emesis. She denies radiation into her left arm or back, denies chest pain, SOB, palp, abd pain, incontinence. pt noted weakness in her lt leg but no numbness. denies falls, LOC, palpitation or dizziness MRI demonstrates progression of the C67 HNP and CT demonstrates bilateral C45 foraminal stenosis as well as persisting prominence of her bone graft material which is unchanged since after her surgery. - Current Medication List Current Medications: Active Medications Acetaminophen (Tylenol -) 650 mg PO Q6H PRN PRN Reason: PAIN LEVEL 1-5 Acetaminophen (Tylenol -) 325 mg PO Q6H PRN PRN Reason: PAIN LEVEL 7-10 Last Admin: 06/28/20 01:01 Dose: 325 mg Documented by: Amlodipine Besylate (Norvasc -) 10 mg PO DAILY [facility] Last Admin: 06/28/20 09:04 Dose: 10 mg Documented by: Aspirin (Asa -) 81 mg PO DAILY [facility] Clonidine (Catapres -) 0.1 mg PO TID [facility] Last Admin: 06/28/20 06:00 Dose: 0.1 mg Documented by: Dexamethasone Sodium Phosphate (Decadron Injection -) 6 mg IVPUSH Q6H-IV [facility] Last Admin: 06/28/20 09:02 Dose: 6 mg Documented by: Folic Acid (Folic Acid -) 1 mg PO DAILY [facility] Gabapentin (Neurontin -) 800 mg PO TID [facility] Last Admin: 06/28/20 06:01 Dose: 800 mg Documented by: Heparin Sodium (Porcine) (Heparin -) 5,000 unit SQ BID [facility] Last Admin: 06/27/20 21:39 Dose: 5,000 unit Documented by: Losartan Potassium (Cozaar -) 100 mg PO DAILY [facility] Last Admin: 06/28/20 09:02 Dose: 100 mg Documented by: Nitroglycerin (Nitro-Bid 2% Paste -) 0.5 inch TD Q6HPO PRN PRN Reason: HYPERTENSION Oxycodone HCl (Roxicodone -) 5 mg PO Q6H PRN PRN Reason: PAIN LEVEL 7-10 Last Admin: 06/28/20 09:03 Dose: 5 mg Documented by: Phenytoin Sodium (Dilantin -) 100 mg PO TID [facility] Last Admin: 06/28/20 06:01 Dose: 100 mg Documented by: Quetiapine Fumarate (Seroquel -) 200 mg PO HS [facility] Last Admin: 06/27/20 21:39 Dose: 200 mg Documented by: Zolpidem Tartrate (Ambien -) 5 mg PO HS PRN PRN Reason: INSOMNIA Last Admin: 06/27/20 23:03 Dose: 5 mg Documented by: - Objective Vital Signs: Vital Signs Temperature 97.9 F 06/28/20 05:08 Pulse Rate 85 06/28/20 05:08 Respiratory Rate 18 06/28/20 05:08 Blood Pressure 141/86 06/28/20 05:08 O2 Sat by Pulse Oximetry (%) 100 06/28/20 05:08 Constitutional: Yes: Well Nourished, No Distress, Calm Neck: Yes: Decreased ROM Cardiovascular: Yes: Regular Rate and Rhythm Respiratory: Yes: Regular, CTA Bilaterally Gastrointestinal: Yes: Normal Bowel Sounds, Soft Genitourinary: Yes: WNL Musculoskeletal: Yes: Back Pain Edema: No Peripheral Pulses WNL: Yes Neurological: Yes: Alert, Oriented Psychiatric: Yes: Alert, Oriented Labs: CBC, BMP 06/28/20 07:50 06/28/20 07:50 INR, PTT INR 0.90 (0.83-1.09) 06/27/20 12:52 Problem List - Problems (1) Intractable headache Assessment/Plan: -pain management consult -Seen by NS -For OR today Problems reviewed: Yes Code(s): R51 - HEADACHE (2) Cervical spinal cord compression Problems reviewed: Yes Code(s): G95.20 - UNSPECIFIED CORD COMPRESSION (3) HTN (hypertension) Assessment/Plan: -resume home meds Problems reviewed: Yes Code(s): I10 - ESSENTIAL (PRIMARY) HYPERTENSION Assessment/Plan see problem list Pt is medically stable for OR with acceptable OR risks
[2020-06-28] MEDS ORDERED: THROMBIN (BOVINE) 20,000 UNIT VIAL TP ONE (11:13)
[2020-06-28] MEDS ORDERED: LIDOCAINE 1%/EPI 1:100000 (20 ML MULTI DOSE VIAL) ONE (11:13)
[2020-06-28] MEDS ORDERED: GENTAMICIN SO4 80 MG/2 ML VIAL ONE (11:13)
[2020-06-28] MEDS ORDERED: VANCOMYCIN 1,000 MG VIAL (RESTRICTED TO ID ONLY) ONE ×2 (11:13→11:40)
--- NOTE | 2020-06-28 11:19 | EKG ---
Test Reason : Blood Pressure : / mmHG Vent. Rate : 082 BPM Atrial Rate : 082 BPM P-R Int : 164 ms QRS Dur : 082 ms QT Int : 372 ms P-R-T Axes : 047 047 028 degrees QTc Int : 434 ms NORMAL SINUS RHYTHM POSSIBLE LEFT ATRIAL ENLARGEMENT CANNOT RULE OUT ANTERIOR INFARCT , AGE UNDETERMINED ABNORMAL ECG WHEN COMPARED WITH ECG OF 29-NOV-2019 18:00, PREMATURE VENTRICULAR COMPLEXES ARE NO LONGER PRESENT Confirmed by NELSON SKINNER, JILLIAN ([id number]) on 06/28/2020 11:19:31 AM Referred By: Confirmed By:JILLIAN DAMON MD
[2020-06-28] MEDS: HEPARIN NA (PORCINE) 5,000 UNITS/ML 1ML VIAL SQ SCH ×2 (11:28→22:10)
[2020-06-28] MEDS ORDERED: ePHEDrine SULFATE 50 MG/1 ML AMPULE ONE (11:30)
[2020-06-28] MEDS ORDERED: DEXAMETHASONE SOD PHOSPHATE 4 MG/1 ML VIAL ONE (11:30)
[2020-06-28] MEDS ORDERED: ceFAZolin SODIUM 1 GM VIAL ONE ×3 (11:30→18:12)
[2020-06-28] MEDS ORDERED: SUCCINYLCHOLINE CHLORIDE 200 MG/10 ML SYRINGE ONE (11:30)
[2020-06-28] MEDS ORDERED: SODIUM CHLORIDE 0.9% P/F 10 ML VIAL IJ ONE (11:30)
[2020-06-28] MEDS ORDERED: LIDOCAINE HCL/PF 2% SDV 5ML VIAL ONE (11:30)
[2020-06-28] MEDS ORDERED: PROPOFOL 20 ML ONE ×2 (11:30)
[2020-06-28] MEDS ORDERED: EPHEDRINE SULFATE/0.9% NACL/PF 50 MG/10 ML SYRINGE NR ONE (11:30)
[2020-06-28] MEDS ORDERED: ROCURONIUM BROMIDE 100 MG/10 ML VIAL ONE ×2 (11:30→13:38)
[2020-06-28] MEDS ORDERED: fentaNYL CITRATE 250 MCG/5 ML VIAL ONE ×2 (11:31→14:03)
[2020-06-28] MEDS ORDERED: MIDAZOLAM HCL 2 MG/2 ML SINGLE DOSE VIAL ONE ×2 (11:31)
[2020-06-28 12:00] LABS: INR 0.9 (0.83-1.09); PROTHROMBIN TIME (PATIENT) 10.6 SEC (9.7-13.0)
[2020-06-28] MEDS ORDERED: BUPIVACAINE LIPOSOME/PF (EXPAREL) 266 MG/20 ML VIAL ONE (12:13)
[2020-06-28] MEDS ORDERED: ACETAMINOPHEN INJECTION 100 ML IVPB ONE (12:29)
[2020-06-28] MEDS ORDERED: VANCOMYCIN 1,000 MG VIAL (RESTRICTED TO ID ONLY) IVPB ONE (12:55)
[2020-06-28] MEDS ORDERED: ceFAZolin SODIUM 1 GM VIAL IVPB ONE (12:55)
[2020-06-28] MEDS ORDERED: THROMBIN (BOVINE) 5,000 UNIT VIAL TP ONE (13:20)
[2020-06-28] MEDS ORDERED: LIDOCAINE 1%/EPI 1:100000 (20 ML MULTI DOSE VIAL) IJ ONE (13:20)
[2020-06-28] MEDS ORDERED: GENTAMICIN SO4 80 MG/2 ML VIAL IVPB ONE (13:20)
[2020-06-28] MEDS ORDERED: BACITRACIN 50,000 UNITS VIAL TP ONE (13:20)
[2020-06-28] MEDS ORDERED: GELATIN, ABSORBABLE 12-7MM EACH SPONGE TP ONE (13:20)
[2020-06-28] MEDS ORDERED: HYDROGEN PEROXIDE 473 ML PO ONE (13:20)
[2020-06-28] MEDS ORDERED: KETAMINE HCL 200 MG/20 ML VIAL ONE (14:04)
[2020-06-28] MEDS ORDERED: ONDANSETRON 4 MG/2 ML VIAL IVPUSH PRN ×3 (15:40→16:51)
[2020-06-28] MEDS ORDERED: HYDROmorphone HCl 2 MG/ML VIAL IVPUSH PRN ×2 (15:41→16:46)
[2020-06-28] MEDS ORDERED: LACTATED RINGERS SOLUTION 1,000 ML IV SCH ×2 (15:45→16:51)
[2020-06-28] MEDS ORDERED: NEOSTIGMINE METHYLSULFATE 0.5 MG/ML - 10 ML MDV ONE (15:56)
[2020-06-28] MEDS ORDERED: GLYCOPYRROLATE 0.2 MG/1 ML VIAL ONE (15:56)
[2020-06-28] MEDS ORDERED: LABETALOL HCL 5 MG/1 ML (100MG/20 ML VIAL) ONE (16:20)
[2020-06-28] MEDS ORDERED: diphenhydrAMINE HCL 25 MG CAPSULE (FP) PO PRN (16:41)
[2020-06-28] MEDS ORDERED: LACTATED RINGERS SOLUTION 1,000 ML/1,000 ML INFUS.BAG IV SCH (16:45)
[2020-06-28] MEDS ORDERED: LABETALOL HCL 5 MG/1 ML (200MG/40ML VIAL) IVPB PRN (16:47)
--- NOTE | 2020-06-28 16:47 | OP ---
Operative Note - Note: Operative Date: 06/28/20 Pre-Operative Diagnosis: Headaches x2 weeks and 2 days of progressive Left arm and leg numbness. New weakness and increased tone in her Left leg. MRI demonstrates progression of the C67 H[address] CT demonstrates bilat C45 foraminal stenosis as well as persisting prominence of her bone graft material which is unchanged since after her primary surgery Operation: Posterior approach for reoperative exposure and exploration of her spinal fusion, removal of bone graft material, b/l osteotomies/foraminotomies at C45 and C56. Anterior approach for C67 Anterior Cervical decompression and fusion. Durotomy. Post-Operative Diagnosis: Same as Pre-op Surgeon: Rakan Whitley Extended Insurance Clerk: Anatoliy Thompson Anesthesiologist/HIDE INSPECTOR: Mariana Suarez Anesthesia: General Estimated Blood Loss (mls): 250 Drains & Tubes with Location: YELENA (anteriorly). Bile bag (posteriorly) Drains, Volume Out (mls): 200 (louie) Fluid Volume Replaced (mls): 1,500 Operative Report Dictated: Yes
[2020-06-28] MEDS ORDERED: ACETAMINOPHEN 325 MG TABLET (FP) PO PRN (16:51)
[2020-06-28] MEDS ORDERED: NITROGLYCERIN 2% OINTMENT - 1GM PACKET TD PRN (16:51)
[2020-06-28] MEDS ORDERED: ZOLPIDEM TARTRATE 5 MG TABLET PO PRN (16:51)
[2020-06-28] MEDS: HYDROmorphone HCl 2 MG/ML VIAL IVPUSH PRN ×4 (17:00→17:45)
[2020-06-28] MEDS: ACETAMINOPHEN 325 MG TABLET (FP) PO PRN (21:16)
[2020-06-28] MEDS: CEFAZOLIN 1 GM in DEXTROSE 5%-WATER - 50 ML IVPB SCH (22:09)
[2020-06-28] MEDS: DOCUSATE SODIUM 100 MG CAPSULE (FP) PO SCH (22:10)
[2020-06-28] MEDS: QUEtiapine FUMARATE 200 MG TABLET PO SCH (22:14)
[2020-06-29] MEDS ORDERED: DEXTROSE 5%-WATER - 50 ML IVPB ONE ×2 (02:06→10:20)
[2020-06-29] MEDS ORDERED: ceFAZolin SODIUM 1 GM VIAL ONE ×2 (02:06→10:20)
[2020-06-29] MEDS: CEFAZOLIN 1 GM in DEXTROSE 5%-WATER - 50 ML IVPB SCH ×2 (02:09→10:45)
[2020-06-29] MEDS: DEXAMETHASONE SOD PHOSPHATE 4 MG/1 ML VIAL IVPUSH SCH ×4 (02:14→21:59)
[2020-06-29] MEDS: ACETAMINOPHEN 325 MG TABLET (FP) PO PRN (06:31)
[2020-06-29] MEDS: oxyCODONE HCL 5 MG TABLET PO PRN ×2 (06:31→10:59)
[2020-06-29] MEDS: DOCUSATE SODIUM 100 MG CAPSULE (FP) PO SCH ×3 (06:32→22:00)
[2020-06-29] MEDS: cloNIDine HCL 0.1 MG TABLET PO SCH ×3 (06:32→22:01)
[2020-06-29] MEDS: GABAPENTIN 400 MG CAPSULE PO SCH ×4 (06:32→22:00)
[2020-06-29] MEDS: PHENYTOIN NA EXTENDED 100 MG CAPSULE (FP) PO SCH ×3 (06:33→22:00)
[2020-06-29 07:36] LABS: HEMATOCRIT 34.9 % (32.4-45.2); HEMOGLOBIN 11.5 GM/dL (10.7-15.3); MCH 31.3 pg (25.7-33.7); MCHC 32.9 g/dl (32.0-36.0); MEAN CELL VOLUME 95.2 fl (80-96); MEAN PLT VOLUME 10.8 fl (7.5-11.1); PLATELET COUNT 155 K/MM3 (134-434); RBC 3.67 M/mm3 (3.60-5.2); RDW 13.7 % (11.6-15.6); WHITE BLOOD COUNT 15.6 K/mm3 (4.0-10.0)
[2020-06-29] MEDS ORDERED: ZOLPIDEM TARTRATE 5 MG TABLET PO PRN (08:03)
[2020-06-29 08:04] LABS: BLOOD UREA NITROGEN 12.4 mg/dL (7-18); CALCIUM 9.1 mg/dL (8.5-10.1); CREATININE 0.7 mg/dL (0.55-1.3)
[2020-06-29] MEDS ORDERED: oxyCODONE HCL 5 MG TABLET PO PRN ×3 (08:07→10:04)
[2020-06-29] MEDS ORDERED: FOLIC ACID 1 MG TABLET (FP) PO SCH ×2 (10:00)
[2020-06-29] MEDS ORDERED: PATIENT'S OWN MEDICATION (NON-FORMULARY) (Losartan Potassium [Cozaar] 100 MG) PO SCH (10:00)
[2020-06-29] MEDS ORDERED: amLODIPine BESYLATE 10 MG TABLET (FP) PO SCH (10:00)
--- NOTE | 2020-06-29 10:06 | PN ---
Progress Note, Physician Chief Complaint: Intractable headaches History of Present Illness: 64 y/o lady with hx of CAD, AFib (on aspirin only), HTN, HLD, SBO, asthma, seizures, and chronic back pain, recent C2-C7 laminectomy (january 2020) presented with 2 week of left frontal and occipital headache worsening gradually started as numbness in her left neck/trapezius radiating to her head about one month ago. Pain is not improved with tylenol at home. She also reports nausea but no emesis. She denies radiation into her left arm or back, denies chest pain, SOB, palp, abd pain, incontinence. pt noted weakness in her lt leg but no numbness. denies falls, LOC, palpitation or dizziness MRI demonstrates progression of the C67 [address] demonstrates bilateral C45 foraminal stenosis as well as persisting prominence of her bone graft material which is unchanged since after her surgery. S/P exploration of c spine Operative Date: 06/28/20 Pre-Operative Diagnosis: Headaches x2 weeks and 2 days of progressive Left arm and leg numbness. New weakness and increased tone in her Left leg. MRI demonstrates progression of the C[address] demonstrates bilat C45 foraminal stenosis as well as persisting prominence of her bone graft material which is unchanged since after her primary surgery Operation: Posterior approach for reoperative exposure and exploration of her spinal fusion, removal of bone graft material, b/l osteotomies/foraminotomies at C45 and C56. Anterior approach for C67 Anterior Cervical decompression and fusion. Durotomy. Post-Operative Diagnosis: Same as Pre-op Surgeon: Rakan Whitley Investment Consultant: Anatoliy Thompson c/o pain 08/07 - Current Medication List Current Medications: Active Medications Acetaminophen (Tylenol -) 650 mg PO Q6H PRN PRN Reason: PAIN LEVEL 1-5 Acetaminophen (Tylenol -) 325 mg PO Q6H PRN PRN Reason: PAIN LEVEL 7-10 Last Admin: 06/29/20 06:31 Dose: 325 mg Documented by: Amlodipine Besylate (Norvasc -) 10 mg PO DAILY [facility] Aspirin (Asa -) 81 mg PO DAILY [facility] Clonidine (Catapres -) 0.1 mg PO TID [facility] Last Admin: 06/29/20 06:32 Dose: 0.1 mg Documented by: Dexamethasone Sodium Phosphate (Decadron Injection -) 6 mg IVPUSH Q6H-IV [facility] Last Admin: 06/29/20 02:14 Dose: 6 mg Documented by: Diphenhydramine HCl (Benadryl -) 25 mg PO Q6H PRN PRN Reason: FOR ITCHING Docusate Sodium (Colace -) 100 mg PO TID [facility] Last Admin: 06/29/20 06:32 Dose: 100 mg Documented by: Ferrous Sulfate (Feosol -) 325 mg PO DAILY@0800 [facility] Folic Acid (Folic Acid -) 1 mg PO DAILY [facility] Gabapentin (Neurontin -) 800 mg PO QID [facility] Heparin Sodium (Porcine) (Heparin -) 5,000 unit SQ BID [facility] Last Admin: 06/28/20 22:10 Dose: 5,000 unit Documented by: Hydromorphone HCl (Dilaudid Vial -) 0.25 mg IVPUSH [id number] PRN PRN Reason: PAIN LEVEL 4 - 6 Last Admin: 06/29/20 02:23 Dose: 0.25 mg Documented by: Lactated Ringer's (Lactated Ringers Solution) 1,000 ml in 1,000 mls @ 125 m ls/hr IV ASDIR [facility] Last Admin: 06/28/20 19:40 Dose: 125 mls/hr Documented by: Cefazolin Sodium 1 gm/ (Dextrose) 50 mls @ 100 mls/hr IVPB Q8H-IV [facility] Stop: 06/29/20 17:59 Last Admin: 06/29/20 02:09 Dose: 100 mls/hr Documented by: Labetalol HCl (Normodyne Injection -) 10 mg IVPB [id number] PRN PRN Reason: CONSTIPATION Last Admin: 06/28/20 18:24 Dose: 10 mg Documented by: Losartan Potassium (Cozaar -) 100 mg PO DAILY [facility] Nitroglycerin (Nitro-Bid 2% Paste -) 0.5 inch TD Q6HPO PRN PRN Reason: HYPERTENSION Ondansetron HCl (Zofran Injection) 4 mg IVPUSH Q6H PRN PRN Reason: NAUSEA Oxycodone HCl (Roxicodone -) 5 mg PO Q4H PRN PRN Reason: PAIN LEVEL 1-5 Oxycodone HCl (Roxicodone -) 10 mg PO Q4H PRN PRN Reason: PAIN LEVEL 6-10 Phenytoin Sodium (Dilantin -) 100 mg PO TID [facility] Last Admin: 06/29/20 06:33 Dose: 100 mg Documented by: Quetiapine Fumarate (Seroquel -) 200 mg PO HS [facility] Last Admin: 06/28/20 22:14 Dose: 200 mg Documented by: Zolpidem Tartrate (Ambien -) 10 mg PO HS PRN PRN Reason: INSOMNIA - Objective Vital Signs: Vital Signs Temperature 98.3 F 06/29/20 07:38 Pulse Rate 92 H 06/29/20 07:38 Respiratory Rate 06/29/20 07:38 Blood Pressure 158/98 06/29/20 07:38 O2 Sat by Pulse Oximetry (%) 99 06/29/20 07:38 Constitutional: Yes: Well Nourished, No Distress, Calm Neck: Yes: Decreased ROM, Other (YELENA attached draining sanguinous fluid) Cardiovascular: Yes: Regular Rate and Rhythm Respiratory: Yes: Regular, CTA Bilaterally Gastrointestinal: Yes: Normal Bowel Sounds, Soft Genitourinary: Yes: Hawley Present Musculoskeletal: Yes: Muscle Weakness Extremities: Yes: WNL Edema: No Peripheral Pulses WNL: Yes Neurological: Yes: Alert, Oriented Psychiatric: Yes: Alert, Oriented Labs: CBC, BMP 06/29/20 07:03 06/29/20 07:03 INR, PTT INR 0.90 (0.83-1.09) 06/28/20 10:15 Problem List - Problems (1) Intractable headache Assessment/Plan: -pain management consult pending -Seen by NS -S/P C spine exploration -For now continue pain meds as per pain level Acetaminophen 1g Q6H pain 1-3 Oxycodone 5 mg Q4H PRN for pain 4-6 Oxycodone 10 mg Q4H PRN for pain 7-10 -Increase Gabapentin to 800 mg po QID -May add tizinadine starting at 2 mg dose if needed in addition to above -PT Problems reviewed: Yes Code(s): R51 - HEADACHE (2) Cervical spinal cord compression Problems reviewed: Yes Code(s): G95.20 - UNSPECIFIED CORD COMPRESSION (3) HTN (hypertension) Assessment/Plan: -Decrease IVF to 75 cc /hr -resume home meds and monitor Problems reviewed: Yes Code(s): I10 - ESSENTIAL (PRIMARY) HYPERTENSION Assessment/Plan see problem list PT D/C jacy
[2020-06-29] MEDS: ASPIRIN 81 MG CHEWABLE TABLETS PO SCH (10:44)
[2020-06-29] MEDS: FOLIC ACID 1 MG TABLET (FP) PO SCH (10:44)
[2020-06-29] MEDS: FERROUS SO4 325 MG TABLET (FP) PO SCH (10:44)
[2020-06-29] MEDS: amLODIPine BESYLATE 10 MG TABLET (FP) PO SCH (10:44)
[2020-06-29] MEDS: HEPARIN NA (PORCINE) 5,000 UNITS/ML 1ML VIAL SQ SCH ×2 (10:45→21:59)
[2020-06-29] MEDS: LOSARTAN POTASSIUM 50 MG TABLET (FP) PO SCH (10:45)
[2020-06-29] MEDS: LACTATED RINGERS SOLUTION 1,000 ML/1,000 ML INFUS.BAG IV SCH ×2 (10:46→11:00)
--- NOTE | 2020-06-29 13:00 | PN ---
Progress Note (short form) - Note Progress Note: 64F s/p Operation: Posterior approach for reoperative exposure and exploration of her spinal fusion, removal of bone graft material, b/l osteotom ies/foraminotomies at C45 and C56. Anterior approach for C67 Anterior Cervical decompression and fusion. Durotomy. Under GETA. Reports improvement in bilateral finger numbness and parasthesia. Was OOB earlier. Reports mild to moderate pain responsive to IV analgesics> Vital Signs Temp 98.3 F 06/29/20 07:38 Pulse 92 H 06/29/20 07:38 Resp 20 06/29/20 07:38 BP 158/98 06/29/20 07:38 Pulse Ox 99 06/29/20 07:38 Intake & Output 06/28/20 06/29/20 06/29/20 23:59 11:59 23:59 Intake Total 1800 750 Output Total 1380 50 Balance 420 700 Intake: IV 1800 750 Lactated Ringers Solution 750 1,000 ml @ 75 mls/hr IV ASDIR [facility] Rx#:[id number] Output: Drainage 130 50 Neck 80 50 Urine 1000 Hawley 200 Estimated Blood Loss 250 Other: Voiding Method Indwelling Catheter # Unmeasured Voids Void 1 Bowel Movement No sitting up, NAD CBC, BMP 06/29/20 07:03 06/29/20 07:03 - No anesthesia complications - Pain reasonably managed - Encouraged OOB, incentive spirometry
[2020-06-29] MEDS ORDERED: PHENYTOIN NA EXTENDED 100 MG CAPSULE (FP) PO SCH (14:00)
[2020-06-29] MEDS ORDERED: cloNIDine HCL 0.1 MG TABLET PO SCH (14:00)
[2020-06-29] MEDS ORDERED: GABAPENTIN 400 MG CAPSULE PO SCH (14:00)
[2020-06-29] MEDS: ACETAMINOPHEN 500 MG TABLET (FP) PO PRN (14:08)
[2020-06-29] MEDS: morphine SULFATE 4 MG/ML VIAL IVPUSH PRN ×2 (15:19→20:10)
--- NOTE | 2020-06-29 15:22 | PN ---
Progress Note (short form) - Note Progress Note: SURGERY 64yo F s/p Posterior:reoperative exposure & exploration, removal of bone graft, b/l osteotomies/foraminotomies C45 & C56. ACDF C6/7. Durotomy. 06/28. Pt states that her headache and arm numbness are improved. Pt complaining of significant cervical pain. Denies fever, chills, n/v. Last Vital Signs Temp Pulse Resp BP Pulse Ox 99 F 96 H 18 151/78 95 06/29/20 10:00 06/29/20 10:00 06/29/20 10:00 06/29/20 10:00 06/29/20 10:00 CBC, BMP 06/29/20 07:03 06/29/20 07:03 PE: Gen: A&O X3 Resp: breathing comfortably Neck: incisions clean with no erythema or discharge, drainage serosanguinous Ant drain: 30ml Post drain: 50ml Problem List - Problems (1) Cervical spinal cord compression Assessment/Plan: Plan -will change pain medications, -soft diet -will monitor drains, possible removal tomorrow. OOB -C-collar 23hours a day Pt seen and discussed with Dr. Whitley, who agrees with plan Code(s): G95.20 - UNSPECIFIED CORD COMPRESSION
[2020-06-29] MEDS ORDERED: MENTHOL/PHENOL 1 EACH UD MM PRN (21:25)
[2020-06-29] MEDS ORDERED: BENZOCAINE/MENTH/CETYLPYRD CL 1 EACH LOZENGE MM PRN (21:28)
[2020-06-29] MEDS: QUEtiapine FUMARATE 200 MG TABLET PO SCH (22:00)
[2020-06-29] MEDS ORDERED: QUEtiapine FUMARATE 100 MG TABLET (FP) PO SCH (22:00)
[2020-06-30] MEDS: morphine SULFATE 4 MG/ML VIAL IVPUSH PRN ×2 (01:03→05:38)
[2020-06-30] MEDS: DEXAMETHASONE SOD PHOSPHATE 4 MG/1 ML VIAL IVPUSH SCH ×4 (02:53→21:07)
[2020-06-30] MEDS: DOCUSATE SODIUM 100 MG CAPSULE (FP) PO SCH ×3 (05:38→21:06)
[2020-06-30] MEDS: PHENYTOIN NA EXTENDED 100 MG CAPSULE (FP) PO SCH ×3 (05:38→21:07)
[2020-06-30] MEDS: cloNIDine HCL 0.1 MG TABLET PO SCH ×3 (05:39→21:08)
[2020-06-30] MEDS ORDERED: PT OWN MED DRAWER 7, Y5N ONE ×3 (06:23→20:32)
--- NOTE | 2020-06-30 07:53 | PN ---
Progress Note, Physician - Current Medication List Current Medications: Active Medications Acetaminophen (Tylenol -) 1,000 mg PO Q6H PRN PRN Reason: PAIN LEVEL 1 - 3 Last Admin: 06/29/20 14:08 Dose: 1,000 mg Documented by: Amlodipine Besylate (Norvasc -) 10 mg PO DAILY [facility] Last Admin: 06/29/20 10:44 Dose: 10 mg Documented by: Aspirin (Asa -) 81 mg PO DAILY [facility] Last Admin: 06/29/20 10:44 Dose: 81 mg Documented by: Benzocaine/Menthol (Cepacol Lozenge -) 1 each MM Q4H PRN PRN Reason: SORE THROAT Last Admin: 06/29/20 22:13 Dose: 1 each Documented by: Clonidine (Catapres -) 0.1 mg PO TID [facility] Last Admin: 06/30/20 05:39 Dose: 0.1 mg Documented by: Dexamethasone Sodium Phosphate (Decadron Injection -) 6 mg IVPUSH Q6H-IV [facility] Last Admin: 06/30/20 02:53 Dose: 6 mg Documented by: Diphenhydramine HCl (Benadryl -) 25 mg PO Q6H PRN PRN Reason: FOR ITCHING Docusate Sodium (Colace -) 100 mg PO TID [facility] Last Admin: 06/30/20 05:38 Dose: 100 mg Documented by: Ferrous Sulfate (Feosol -) 325 mg PO DAILY@0800 [facility] Last Admin: 06/29/20 10:44 Dose: 325 mg Documented by: Folic Acid (Folic Acid -) 1 mg PO DAILY [facility] Last Admin: 06/29/20 10:44 Dose: 1 mg Documented by: Gabapentin (Neurontin -) 800 mg PO QID [facility] Last Admin: 06/29/20 22:00 Dose: 800 mg Documented by: Heparin Sodium (Porcine) (Heparin -) 5,000 unit SQ BID [facility] Last Admin: 06/29/20 21:59 Dose: 5,000 unit Documented by: Lactated Ringer's (Lactated Ringers Solution) 1,000 ml in 1,000 mls @ 75 mls/hr IV ASDIR [facility] Last Admin: 06/29/20 11:00 Dose: 75 mls/hr Documented by: Losartan Potassium (Cozaar -) 100 mg PO DAILY [facility] Last Admin: 06/29/20 10:45 Dose: 100 mg Documented by: Morphine Sulfate (Morphine Sulfate) 4 mg IVPUSH Q4H PRN PRN Reason: PAIN LEVEL 7 - 10 Last Admin: 06/30/20 05:38 Dose: 4 mg Documented by: Nitroglycerin (Nitro-Bid 2% Paste -) 0.5 inch TD Q6HPO PRN PRN Reason: HYPERTENSION Ondansetron HCl (Zofran Injection) 4 mg IVPUSH Q6H PRN PRN Reason: NAUSEA Oxycodone HCl (Roxicodone -) 5 mg PO Q4H PRN PRN Reason: PAIN LEVEL 4 - 6 Oxycodone HCl (Roxicodone -) 10 mg PO Q4H PRN PRN Reason: PAIN LEVEL 7 - 10 Last Admin: 06/29/20 10:59 Dose: 10 mg Documented by: Phenytoin Sodium (Dilantin -) 100 mg PO TID [facility] Last Admin: 06/30/20 05:38 Dose: 100 mg Documented by: Quetiapine Fumarate (Seroquel -) 200 mg PO HS [facility] Last Admin: 06/29/20 22:00 Dose: 200 mg Documented by: Zolpidem Tartrate (Ambien -) 10 mg PO HS PRN PRN Reason: INSOMNIA Last Admin: 06/29/20 22:00 Dose: 10 mg Documented by: - Objective Vital Signs: Vital Signs Temperature 98.2 F 06/30/20 06:27 Pulse Rate 85 06/30/20 06:27 Respiratory Rate 20 06/30/20 06:27 Blood Pressure 152/90 06/30/20 06:27 O2 Sat by Pulse Oximetry (%) 99 06/29/20 21:00 Cardiovascular: Yes: S1, S2 Respiratory: Yes: Regular, CTA Bilaterally Gastrointestinal: Yes: Normal Bowel Sounds, Soft. No: Tenderness Neurological: Yes: Alert, Oriented Labs: CBC, BMP 06/29/20 07:03 06/29/20 07:03 INR, PTT INR 0.90 (0.83-1.09) 06/28/20 10:15 Assessment/Plan - Problems (1) Intractable headache Assessment/Plan: -pain management consult pending -Seen by NS -S/P C spine exploration -For now continue pain meds as per pain level Acetaminophen 1g Q6H pain 1-3 Oxycodone 5 mg Q4H PRN for pain 4-6 Oxycodone 10 mg Q4H PRN for pain 7-10 -Increase Gabapentin to 800 mg po QID -May add tizinadine starting at 2 mg dose if needed in addition to above -PT Problems reviewed: Yes Code(s): R51 - HEADACHE (2) Cervical spinal cord compression Operative Date: 06/28/20 Pre-Operative Diagnosis: Headaches x2 weeks and 2 days of progressive Left arm and leg numbness. New weakness and increased tone in her Left leg. MRI demonstrates progression of the C67 HNP and CT demonstrates bilat C45 foraminal stenosis as well as persisting prominence of her bone graft material which is unchanged since after her primary surgery Operation: Posterior approach for reoperative exposure and exploration of her spinal fusion, removal of bone graft material, b/l osteotomies/foraminotomies at C45 and C56. Anterior approach for C67 Anterior Cervical decompression and fusion. Durotomy. Post-Operative Diagnosis: Same as Pre-op Surgeon: Rakan Whitley Flat Hammerer: Anatoliy Thompson Problems reviewed: Yes Code(s): G95.20 - UNSPECIFIED CORD COMPRESSION (3) HTN (hypertension) Assessment/Plan: -Decrease IVF to 75 cc /hr -resume home meds and monitor Problems reviewed: Yes Code(s): I10 - ESSENTIAL (PRIMARY) HYPERTENSION
[2020-06-30] MEDS: oxyCODONE HCL 5 MG TABLET PO PRN (08:20)
[2020-06-30] MEDS: FERROUS SO4 325 MG TABLET (FP) PO SCH (08:20)
[2020-06-30 08:25] LABS: BASO % 0.2 % (0-2.0); HEMATOCRIT 31.1 % (32.4-45.2); HEMOGLOBIN 10.3 GM/dL (10.7-15.3); LYMPH % 7.6 % (8-40); MCH 31.8 pg (25.7-33.7); MCHC 33.1 g/dl (32.0-36.0); MEAN CELL VOLUME 96.1 fl (80-96); MEAN PLT VOLUME 11.5 fl (7.5-11.1); MONO % 4.2 % (3.8-10.2); PLATELET COUNT 128 K/MM3 (134-434); RBC 3.24 M/mm3 (3.60-5.2); RDW 13.9 % (11.6-15.6); WHITE BLOOD COUNT 11.3 K/mm3 (4.0-10.0)
[2020-06-30] MEDS ORDERED: diazePAM 5 MG TABLET PO PRN (08:33)
[2020-06-30 08:47] LABS: ALBUMIN 3.2 g/dl (3.4-5.0); BILIRUBIN,TOTAL 0.2 mg/dL (0.2-1); BLOOD UREA NITROGEN 11.8 mg/dL (7-18); CREATININE 0.5 mg/dL (0.55-1.3); POTASSIUM 4.3 mmol/L (3.5-5.1); TOT PROT 6.2 g/dl (6.4-8.2)
[2020-06-30] MEDS: HEPARIN NA (PORCINE) 5,000 UNITS/ML 1ML VIAL SQ SCH ×2 (09:39→21:07)
[2020-06-30] MEDS: ASPIRIN 81 MG CHEWABLE TABLETS PO SCH (09:39)
[2020-06-30] MEDS: GABAPENTIN 400 MG CAPSULE PO SCH ×4 (09:39→21:06)
[2020-06-30] MEDS: FOLIC ACID 1 MG TABLET (FP) PO SCH (09:39)
[2020-06-30] MEDS: LOSARTAN POTASSIUM 50 MG TABLET (FP) PO SCH (09:39)
[2020-06-30] MEDS: amLODIPine BESYLATE 10 MG TABLET (FP) PO SCH (09:40)
[2020-06-30] MEDS: LACTATED RINGERS SOLUTION 1,000 ML/1,000 ML INFUS.BAG IV SCH (10:13)
[2020-06-30] MEDS: MORPHINE SULFATE 2 MG/ML VIAL IVPUSH PRN ×3 (10:32→21:07)
--- NOTE | 2020-06-30 11:46 | PN ---
Progress Note (short form) - Note Progress Note: SURGERY 64yo F s/p Posterior:reoperative exposure & exploration, removal of bone graft, b/l osteotomies/foraminotomies C45 & C56. ACDF C6/7. Durotomy. 06/28. Pt states that her headache and arm numbness are improved. Pt complaining of significant cervical pain, mostly muscle spasms. Denies fever, chills, n/v. CBC, BMP 06/30/20 07:40 06/30/20 07:40 Last Vital Signs Temp Pulse Resp BP Pulse Ox 98.2 F 85 20 152/90 99 06/30/20 06:27 06/30/20 06:27 06/30/20 06:27 06/30/20 06:27 06/29/20 21:00 PE: Gen: A&O X3 Resp: breathing comfortably Neck: incisions clean with no erythema or discharge, drainage serosanguinous Vital Signs Temp 98.2 F 06/30/20 06:27 Pulse 85 06/30/20 06:27 Resp 20 06/30/20 06:27 BP 152/90 06/30/20 06:27 Pulse Ox 99 06/29/20 21:00 Intake & Output 06/29/20 06/29/20 06/30/20 11:59 23:59 11:59 Intake Total 750 1100 450 Output Total 50 975 825 Balance 700 125 -375 Intake: IV 750 1050 450 LACTATED RINGERS SOLUTION 300 450 1,000 ml In 1,000 ml @ 75 mls/hr IV [facility] Rx #:[id number] Lactated Ringers Solution 750 750 1,000 ml @ 75 mls/hr IV [facility] Rx#:[id number] IVPB 50 Output: Drainage 50 125 25 Neck 50 65 15 Posterior Neck 60 10 Urine 850 800 Void 850 800 Other: Voiding Method Indwelling Catheter Indwelling Catheter Bowel Movement No No Problem List - Problems (1) Cervical spinal cord compression Assessment/Plan: Plan -will add muscle relaxer to meds to help with spasms. -start Diamox 250mg BID -oob/ambulate -c-collar in place 23hours -monitor drain output -dvt ppx -soft diet Pt discussed with Dr. Whitley who agrees with plan. Code(s): G95.20 - UNSPECIFIED CORD COMPRESSION
[2020-06-30] MEDS: ACETAMINOPHEN 500 MG TABLET (FP) PO PRN (12:11)
[2020-06-30] MEDS: diazePAM 5 MG TABLET PO PRN ×2 (12:11→21:05)
--- NOTE | 2020-06-30 16:07 | EKG ---
Test Reason : Blood Pressure : / mmHG Vent. Rate : 083 BPM Atrial Rate : 083 BPM P-R Int : 142 ms QRS Dur : 082 ms QT Int : 368 ms P-R-T Axes : 032 021 -03 degrees QTc Int : 432 ms NORMAL SINUS RHYTHM LEFT ATRIAL ENLARGEMENT BORDERLINE ECG Confirmed by MD MIRIAM, ROWENA ([id number]) on 06/30/2020 4:07:12 PM Referred By: Chris DRIVER Confirmed By:ROWENA PINEDA MD
[2020-06-30] MEDS: QUEtiapine FUMARATE 200 MG TABLET PO SCH (21:06)
[2020-06-30] MEDS: ZOLPIDEM TARTRATE 5 MG TABLET PO PRN (21:06)
[2020-06-30] MEDS: acetaZOLAMIDE 250 MG TABLET PO SCH (21:08)
[2020-07-01] MEDS: MORPHINE SULFATE 2 MG/ML VIAL IVPUSH PRN ×4 (01:41→21:09)
[2020-07-01] MEDS: DEXAMETHASONE SOD PHOSPHATE 4 MG/1 ML VIAL IVPUSH SCH ×4 (03:15→21:07)
[2020-07-01] MEDS: cloNIDine HCL 0.1 MG TABLET PO SCH ×3 (05:48→21:11)
[2020-07-01] MEDS: PHENYTOIN NA EXTENDED 100 MG CAPSULE (FP) PO SCH ×3 (05:48→21:07)
[2020-07-01] MEDS: oxyCODONE HCL 5 MG TABLET PO PRN (05:48)
[2020-07-01] MEDS: DOCUSATE SODIUM 100 MG CAPSULE (FP) PO SCH ×3 (05:48→21:07)
[2020-07-01 08:09] LABS: BASO % 0.1 % (0-2.0); HEMATOCRIT 34.8 % (32.4-45.2); HEMOGLOBIN 11.4 GM/dL (10.7-15.3); LYMPH % 9.5 % (8-40); MCH 31.8 pg (25.7-33.7); MCHC 32.7 g/dl (32.0-36.0); MEAN CELL VOLUME 97.2 fl (80-96); MEAN PLT VOLUME 11.1 fl (7.5-11.1); NEUT % 87.4 % (42.8-82.8); PLATELET COUNT 146 K/MM3 (134-434); RBC 3.58 M/mm3 (3.60-5.2); RDW 14.2 % (11.6-15.6); WHITE BLOOD COUNT 8.9 K/mm3 (4.0-10.0)
[2020-07-01 08:47] LABS: ALBUMIN 3.4 g/dl (3.4-5.0); BLOOD UREA NITROGEN 12.4 mg/dL (7-18); CALCIUM 9.4 mg/dL (8.5-10.1); POTASSIUM 4.2 mmol/L (3.5-5.1)
--- NOTE | 2020-07-01 08:52 | PN ---
Progress Note (short form) - Note Progress Note: NEUROSURGERY POD #3 No acute events over night per RN notes. Patient in bed with HOB at 30 degrees and wearing her c-collar as instructed. States that she is still having WATSON's however, greatly reduced prior to surgery. Also, UE numbness seems to be resolving per patient. C/o cervical pain, mostly muscle spasms which is controlled with medicine. She is OOB and ambulating unasissted. Voiding spontaneously. Stooling. Tolerating PO diet. Denies n/v/f/c, CP, palpitations, SOB or PADRON. Last Vital Signs Temp Pulse Resp BP Pulse Ox 97.8 F 82 20 152/92 98 07/01/20 07:56 07/01/20 07:56 07/01/20 07:56 07/01/20 07:56 07/01/20 07:56 CBC, BMP 07/01/20 07:25 07/01/20 07:25 24 Hour Output 06/30/20 06/30/20 06/30/20 07/01/20 06:00 15:00 22:22 06:32 Bile Bag (anterior) 15 10 40 15 YELENA (posterior) 10 5 10 10 PE Gen: A&O X3 Resp: Unlabored respirations on room air Neck: anterior and posterior incisions c/d/i. Bile bag/anteriorly, YELENA/posteriorly. LE: all compartments soft, supple, NT. SCDs bilat. A/P: 64 yo female POD #3 s/p Posterior:reoperative exposure & exploration, removal of bone graft, b/l osteotomies/foraminotomies C45 & C56. ACDF C6/7. Durotomy -Cont muscle relaxer to help with spasms PRN -Diamox 250mg BID -Cont oob and ambulate -C-collar in place 23hours (may remove while eating) -monitor/record drain output q shift -DVT PPx -soft diet -IV ABX to continue while drains remain in. Above plan discussed with Dr. Whitley and agrees
[2020-07-01 08:53] LABS: BILIRUBIN,TOTAL 0.2 mg/dL (0.2-1); CREATININE 0.6 mg/dL (0.55-1.3); TOT PROT 6.8 g/dl (6.4-8.2)
--- NOTE | 2020-07-01 08:58 | PN ---
Progress Note, Physician - Current Medication List Current Medications: Active Medications Acetaminophen (Tylenol -) 1,000 mg PO Q6H PRN PRN Reason: PAIN LEVEL 1 - 3 Last Admin: 06/30/20 12:11 Dose: 1,000 mg Documented by: Acetazolamide (Diamox -) 250 mg PO BID [facility] Last Admin: 06/30/20 21:08 Dose: 250 mg Documented by: Amlodipine Besylate (Norvasc -) 10 mg PO DAILY [facility] Last Admin: 06/30/20 09:40 Dose: 10 mg Documented by: Aspirin (Asa -) 81 mg PO DAILY [facility] Last Admin: 06/30/20 09:39 Dose: 81 mg Documented by: Benzocaine/Menthol (Cepacol Lozenge -) 1 each MM Q4H PRN PRN Reason: SORE THROAT Last Admin: 06/29/20 22:13 Dose: 1 each Documented by: Clonidine (Catapres -) 0.1 mg PO TID [facility] Last Admin: 07/01/20 05:48 Dose: 0.1 mg Documented by: Dexamethasone Sodium Phosphate (Decadron Injection -) 6 mg IVPUSH Q6H-IV [facility] Last Admin: 07/01/20 03:15 Dose: 6 mg Documented by: Diazepam (Valium -) 5 mg PO Q8H PRN PRN Reason: MUSCLE SPASMS Last Admin: 06/30/20 21:05 Dose: 5 mg Documented by: Docusate Sodium (Colace -) 100 mg PO TID [facility] Last Admin: 07/01/20 05:48 Dose: 100 mg Documented by: Ferrous Sulfate (Feosol -) 325 mg PO DAILY@0800 [facility] Last Admin: 06/30/20 08:20 Dose: 325 mg Documented by: Folic Acid (Folic Acid -) 1 mg PO DAILY [facility] Last Admin: 06/30/20 09:39 Dose: 1 mg Documented by: Gabapentin (Neurontin -) 800 mg PO QID [facility] Last Admin: 06/30/20 21:06 Dose: 800 mg Documented by: Heparin Sodium (Porcine) (Heparin -) 5,000 unit SQ BID [facility] Last Admin: 06/30/20 21:07 Dose: 5,000 unit Documented by: Lactated Ringer's (Lactated Ringers Solution) 1,000 ml in 1,000 mls @ 75 mls/hr IV ASDIR [facility] Last Admin: 06/30/20 10:13 Dose: Not Given Documented by: Losartan Potassium (Cozaar -) 100 mg PO DAILY [facility] Last Admin: 06/30/20 09:39 Dose: 100 mg Documented by: Morphine Sulfate (Morphine Sulfate) 2 mg IVPUSH Q4H PRN PRN Reason: PAIN LEVEL 7 - 10 Last Admin: 07/01/20 08:24 Dose: 2 mg Documented by: Nitroglycerin (Nitro-Bid 2% Paste -) 0.5 inch TD Q6HPO PRN PRN Reason: HYPERTENSION Ondansetron HCl (Zofran Injection) 4 mg IVPUSH Q6H PRN PRN Reason: NAUSEA Oxycodone HCl (Roxicodone -) 5 mg PO Q4H PRN PRN Reason: PAIN LEVEL 4 - 6 Oxycodone HCl (Roxicodone -) 10 mg PO Q4H PRN PRN Reason: PAIN LEVEL 7 - 10 Last Admin: 07/01/20 05:48 Dose: 10 mg Documented by: Phenytoin Sodium (Dilantin -) 100 mg PO TID [facility] Last Admin: 07/01/20 05:48 Dose: 100 mg Documented by: Quetiapine Fumarate (Seroquel -) 200 mg PO HS [facility] Last Admin: 06/30/20 21:06 Dose: 200 mg Documented by: Zolpidem Tartrate (Ambien -) 5 mg PO HS PRN PRN Reason: INSOMNIA Last Admin: 06/30/20 21:06 Dose: 5 mg Documented by: - Objective Vital Signs: Vital Signs Temperature 97.8 F 07/01/20 07:56 Pulse Rate 82 07/01/20 07:56 Respiratory Rate 20 07/01/20 07:56 Blood Pressure 152/92 07/01/20 07:56 O2 Sat by Pulse Oximetry (%) 98 07/01/20 07:56 Cardiovascular: Yes: Regular Rate and Rhythm Respiratory: Yes: Regular, CTA Bilaterally Gastrointestinal: Yes: Normal Bowel Sounds, Soft Labs: CBC, BMP 07/01/20 07:25 07/01/20 07:25 INR, PTT INR 0.90 (0.83-1.09) 06/28/20 10:15 Assessment/Plan - Problems (1) Intractable headache Assessment/Plan: -pain management consult pending -Seen by NS -S/P C spine exploration -For now continue pain meds as per pain level Acetaminophen 1g Q6H pain 1-3 Oxycodone 5 mg Q4H PRN for pain 4-6 Oxycodone 10 mg Q4H PRN for pain 7-10 -Increase Gabapentin to 800 mg po QID -May add tizinadine starting at 2 mg dose if needed in addition to above -PT Problems reviewed: Yes Code(s): R51 - HEADACHE (2) Cervical spinal cord compression Operative Date: 06/28/20 Pre-Operative Diagnosis: Headaches x2 weeks and 2 days of progressive Left arm and leg numbness. New weakness and increased tone in her Left leg. MRI demonstrates progression of the C67 HNP and CT demonstrates bilat C45 foraminal stenosis as well as persisting prominence of her bone graft material which is unchanged since after her primary surgery Operation: Posterior approach for reoperative exposure and exploration of her spinal fusion, removal of bone graft material, b/l osteotomies/foraminotomies at C45 and C56. Anterior approach for C67 Anterior Cervical decompression and fusion. Durotomy. Post-Operative Diagnosis: Same as Pre-op Surgeon: Rakan Whitley Lead Consultant: Anatoliy Thompson Problems reviewed: Yes Code(s): G95.20 - UNSPECIFIED CORD COMPRESSION (3) HTN (hypertension) Assessment/Plan: -Dc IVF -resume home meds and monitor Problems reviewed: Yes Code(s): I10 - ESSENTIAL (PRIMARY) HYPERTENSION
[2020-07-01] MEDS: amLODIPine BESYLATE 10 MG TABLET (FP) PO SCH (09:24)
[2020-07-01] MEDS: ASPIRIN 81 MG CHEWABLE TABLETS PO SCH (09:24)
[2020-07-01] MEDS: FOLIC ACID 1 MG TABLET (FP) PO SCH (09:25)
[2020-07-01] MEDS: HEPARIN NA (PORCINE) 5,000 UNITS/ML 1ML VIAL SQ SCH ×2 (09:25→21:10)
[2020-07-01] MEDS: LOSARTAN POTASSIUM 50 MG TABLET (FP) PO SCH (09:25)
[2020-07-01] MEDS: GABAPENTIN 400 MG CAPSULE PO SCH ×4 (09:25→21:07)
[2020-07-01] MEDS: FERROUS SO4 325 MG TABLET (FP) PO SCH (09:27)
[2020-07-01] MEDS ORDERED: PT OWN MED DRAWER 7, Y5N ONE (09:28)
[2020-07-01] MEDS: acetaZOLAMIDE 250 MG TABLET PO SCH ×2 (09:28→21:10)
--- NOTE | 2020-07-01 14:47 | SURG ---
Surgery Prototype Fabricator Note Prototype Fabricator: Anatoliy Thompson PA-C Date of Service: 06/28/20 Diagnosis: Cervical Spondylotic Myelopathy Procedure: 1. Exploration of spinal fusion 2. Fluroscopy 3. Posterior Segmental Instrumentation 4. Local autograft 5. C4 Posterior Osteotomy 6. C5 Posterior Osteotomy 7. C6 Posterior Osteotomy 8. Bilateral Reoperative C2 laminectomy 9. Bilateral Reoperative C3 laminectomy 10. Bilateral Reoperative C4 laminectomy 11. Bilateral Reoperative C5 laminectomy 12. Bilateral Reoperative C6 laminectomy 13. Bilateral Reoperative C7 laminectomy 14. C2/3 Posterior/Lateral Arthrodesis 15. C3/4 Posterior/Lateral Arthrodesis 16. C4/5 Posterior/Lateral Arthrodesis 17. C5/6 Posterior/Lateral Arthrodesis 18. C6/7 Posterior/Lateral Arthrodesis 19. Bilateral sof tissue advancement flaps (50 cm2) 20. Nondenominational of lordosis I was present for the entirety of the operative procedure. For further detail, please refer to operative report. Visit type - Case Type Case Type: ED Admission - New patient This patient is new to me today: Yes Date on this admission: 07/01/20
--- NOTE | 2020-07-01 14:57 | SURG ---
Surgery Books Binder Note Books Binder: Anatoliy Thompson PA-C Date of Service: 06/28/20 Diagnosis: Cervical Spondylotic Myelopathy Procedure: 1. Interbody cage (discectomy 2. Exploration of spinal fusion 3. C6 caudal hemicorpectomy with resection of ostephytes and posterior longitudinal ligament (technically challenging) 4. C7 rostral hemicorpectomy with resection of ostephytes and posterior longitudinal ligament 5. Anterior instrumentation C6-C7 (technically challenging) 6. Fluroscopy 7. Microdissection 8. C6/7 Arthrodesis 9. Local autograft 10. Deformity correction (taoism of lordosis) 11. Repair durotomy I was present for the entirety of the operative procedure. For further detail, please refer to operative report. Visit type - Case Type Case Type: ED Admission - New patient This patient is new to me today: Yes Date on this admission: 07/01/20
[2020-07-01] MEDS ORDERED: ceFAZolin SODIUM 1 GM VIAL ONE (16:22)
[2020-07-01] MEDS ORDERED: DEXTROSE 5%-WATER - 50 ML IVPB ONE (16:23)
[2020-07-01] MEDS: CEFAZOLIN 1 GM in DEXTROSE 5%-WATER - 50 ML IVPB SCH ×2 (17:31→17:32)
[2020-07-01] MEDS: QUEtiapine FUMARATE 200 MG TABLET PO SCH (21:07)
[2020-07-01] MEDS: ZOLPIDEM TARTRATE 5 MG TABLET PO PRN (21:08)
[2020-07-01] MEDS: diazePAM 5 MG TABLET PO PRN (21:08)
[2020-07-02] MEDS ORDERED: DEXTROSE 5%-WATER - 50 ML IVPB ONE ×2 (01:12→10:29)
[2020-07-02] MEDS ORDERED: ceFAZolin SODIUM 1 GM VIAL ONE ×2 (01:12→10:29)
[2020-07-02] MEDS: CEFAZOLIN 1 GM in DEXTROSE 5%-WATER - 50 ML IVPB SCH ×2 (02:10→10:33)
[2020-07-02] MEDS: DEXAMETHASONE SOD PHOSPHATE 4 MG/1 ML VIAL IVPUSH SCH ×3 (02:11→22:21)
[2020-07-02] MEDS: DOCUSATE SODIUM 100 MG CAPSULE (FP) PO SCH ×3 (06:23→22:20)
[2020-07-02] MEDS: PHENYTOIN NA EXTENDED 100 MG CAPSULE (FP) PO SCH ×3 (06:23→22:19)
[2020-07-02] MEDS: MORPHINE SULFATE 2 MG/ML VIAL IVPUSH PRN ×3 (06:23→20:54)
[2020-07-02] MEDS: cloNIDine HCL 0.1 MG TABLET PO SCH ×3 (06:23→22:20)
--- NOTE | 2020-07-02 08:04 | PN ---
Progress Note, Physician - Current Medication List Current Medications: Active Medications Acetaminophen (Tylenol -) 1,000 mg PO Q6H PRN PRN Reason: PAIN LEVEL 1 - 3 Last Admin: 06/30/20 12:11 Dose: 1,000 mg Documented by: Acetazolamide (Diamox -) 250 mg PO BID [facility] Last Admin: 07/01/20 21:10 Dose: 250 mg Documented by: Amlodipine Besylate (Norvasc -) 10 mg PO DAILY [facility] Last Admin: 07/01/20 09:24 Dose: 10 mg Documented by: Aspirin (Asa -) 81 mg PO DAILY [facility] Last Admin: 07/01/20 09:24 Dose: 81 mg Documented by: Benzocaine/Menthol (Cepacol Lozenge -) 1 each MM Q4H PRN PRN Reason: SORE THROAT Last Admin: 06/29/20 22:13 Dose: 1 each Documented by: Clonidine (Catapres -) 0.1 mg PO TID [facility] Last Admin: 07/02/20 06:23 Dose: 0.1 mg Documented by: Dexamethasone Sodium Phosphate (Decadron Injection -) 6 mg IVPUSH Q6H-IV [facility] Last Admin: 07/02/20 02:11 Dose: 6 mg Documented by: Diazepam (Valium -) 5 mg PO Q8H PRN PRN Reason: MUSCLE SPASMS Last Admin: 07/01/20 21:08 Dose: 5 mg Documented by: Docusate Sodium (Colace -) 100 mg PO TID [facility] Last Admin: 07/02/20 06:23 Dose: 100 mg Documented by: Ferrous Sulfate (Feosol -) 325 mg PO DAILY@0800 [facility] Last Admin: 07/01/20 09:27 Dose: 325 mg Documented by: Folic Acid (Folic Acid -) 1 mg PO DAILY [facility] Last Admin: 07/01/20 09:25 Dose: 1 mg Documented by: Gabapentin (Neurontin -) 800 mg PO QID [facility] Last Admin: 07/01/20 21:07 Dose: 800 mg Documented by: Heparin Sodium (Porcine) (Heparin -) 5,000 unit SQ BID [facility] Last Admin: 07/01/20 21:10 Dose: 5,000 unit Documented by: Cefazolin Sodium 1 gm/ (Dextrose) 50 mls @ 100 mls/hr IVPB Q8H-IV [facility] Stop: 07/02/20 13:22 Last Admin: 07/02/20 02:10 Dose: 100 mls/hr Documented by: Losartan Potassium (Cozaar -) 100 mg PO DAILY [facility] Last Admin: 07/01/20 09:25 Dose: 100 mg Documented by: Morphine Sulfate (Morphine Sulfate) 2 mg IVPUSH Q4H PRN PRN Reason: PAIN LEVEL 7 - 10 Last Admin: 07/02/20 06:23 Dose: 2 mg Documented by: Nitroglycerin (Nitro-Bid 2% Paste -) 0.5 inch TD Q6HPO PRN PRN Reason: HYPERTENSION Ondansetron HCl (Zofran Injection) 4 mg IVPUSH Q6H PRN PRN Reason: NAUSEA Oxycodone HCl (Roxicodone -) 5 mg PO Q4H PRN PRN Reason: PAIN LEVEL 4 - 6 Oxycodone HCl (Roxicodone -) 10 mg PO Q4H PRN PRN Reason: PAIN LEVEL 7 - 10 Last Admin: 07/01/20 05:48 Dose: 10 mg Documented by: Phenytoin Sodium (Dilantin -) 100 mg PO TID [facility] Last Admin: 07/02/20 06:23 Dose: 100 mg Documented by: Quetiapine Fumarate (Seroquel -) 200 mg PO HS [facility] Last Admin: 07/01/20 21:07 Dose: 200 mg Documented by: Zolpidem Tartrate (Ambien -) 5 mg PO HS PRN PRN Reason: INSOMNIA Last Admin: 07/01/20 21:08 Dose: 5 mg Documented by: - Objective Vital Signs: Vital Signs Temperature 97.4 F L 07/02/20 06:00 Pulse Rate 70 07/02/20 06:00 Respiratory Rate 20 07/02/20 06:00 Blood Pressure 149/95 07/02/20 06:00 O2 Sat by Pulse Oximetry (%) 99 07/02/20 06:00 Cardiovascular: Yes: Regular Rate and Rhythm Respiratory: Yes: Regular, CTA Bilaterally Gastrointestinal: Yes: Normal Bowel Sounds, Soft Labs: CBC, BMP 07/01/20 07:25 07/01/20 07:25 INR, PTT INR 0.90 (0.83-1.09) 06/28/20 10:15 Assessment/Plan - Problems (1) Intractable headache Assessment/Plan: -pain management consult pending -Seen by NS -S/P C spine exploration -For now continue pain meds as per pain level Acetaminophen 1g Q6H pain 1-3 Oxycodone 5 mg Q4H PRN for pain 4-6 Oxycodone 10 mg Q4H PRN for pain 7-10 -Increase Gabapentin to 800 mg po QID -May add tizinadine starting at 2 mg dose if needed in addition to above -PT Problems reviewed: Yes Code(s): R51 - HEADACHE (2) Cervical spinal cord compression Operative Date: 06/28/20 Pre-Operative Diagnosis: Headaches x2 weeks and 2 days of progressive Left arm and leg numbness. New weakness and increased tone in her Left leg. MRI demonstrates progression of the C67 HNP and CT demonstrates bilat C45 foraminal stenosis as well as persisting prominence of her bone graft material which is unchanged since after her primary surgery Operation: Posterior approach for reoperative exposure and exploration of her spinal fusion, removal of bone graft material, b/l osteotomies/foraminotomies at C45 and C56. Anterior approach for C67 Anterior Cervical decompression and fusion. Durotomy. Post-Operative Diagnosis: Same as Pre-op Surgeon: Rakan Whitley Chief Mate: Anatoliy Thompson Problems reviewed: Yes Code(s): G95.20 - UNSPECIFIED CORD COMPRESSION (3) HTN (hypertension) Assessment/Plan: -Dc IVF -resume home meds and monitor Problems reviewed: Yes Code(s): I10 - ESSENTIAL (PRIMARY) HYPERTENSION
--- NOTE | 2020-07-02 10:22 | PN ---
Progress Note (short form) - Note Progress Note: Surgery: Pt states that she has a slight headache but improved. Her headache was present prior to her procedure. OOB and ambulated with PT yesterday. Tolerating a soft diet. Her anterior YELENA fell out overnight Vital Signs Period Temp Pulse Resp BP Sys/Blackburn Pulse Ox Last 24 Hr 97.4 F-98.9 F 70-82 18-20 135-149/81-97 99-99 YELENA: posterior 55ml GEN: A&0x3, NAD Neck: Mobile collar in place. Anterior neck dressing c/d/i and without any masses. Posterior dressing c/d/i LE: no calf tenderness or swelling noted b/l. Neuro; earring maker strength equal b/l. RLE 5/5 dorsi/plantar flexion. LLE 3/5 dorsi/plantar. CBC, BMP 07/01/20 07:25 07/01/20 07:25 A/P: 64 yo female s/p Posterior approach for reoperative exposure and exploration of her spinal fusion, removal of bone graft material, b/l osteotomies/foraminotomies at C45 and C56. Anterior approach for C67 Anterior Cervical decompression and fusion. Durotomy. D/w Dr. Whitley and will continue YELENA for now Continue PT therapy Diamox for headache Diet as tolerated DVT ppx with heparin SQ Oral pain medicaitons Wean steroids 6 mg BID starting this pm, dose given at 10 am today.
[2020-07-02] MEDS ORDERED: oxyCODONE HCL 5 MG TABLET PO PRN (10:33)
[2020-07-02] MEDS: HEPARIN NA (PORCINE) 5,000 UNITS/ML 1ML VIAL SQ SCH ×2 (10:34→22:22)
[2020-07-02] MEDS: ASPIRIN 81 MG CHEWABLE TABLETS PO SCH (10:34)
[2020-07-02] MEDS: FOLIC ACID 1 MG TABLET (FP) PO SCH (10:34)
[2020-07-02] MEDS: GABAPENTIN 400 MG CAPSULE PO SCH ×4 (10:34→22:20)
[2020-07-02] MEDS: FERROUS SO4 325 MG TABLET (FP) PO SCH (10:35)
[2020-07-02] MEDS: LOSARTAN POTASSIUM 50 MG TABLET (FP) PO SCH (10:35)
[2020-07-02] MEDS: amLODIPine BESYLATE 10 MG TABLET (FP) PO SCH (10:35)
[2020-07-02] MEDS: acetaZOLAMIDE 250 MG TABLET PO SCH ×2 (10:36→22:21)
[2020-07-02] MEDS: oxyCODONE HCL 5 MG TABLET PO PRN (17:04)
[2020-07-02] MEDS: ACETAMINOPHEN 500 MG TABLET (FP) PO PRN (17:05)
[2020-07-02] MEDS ORDERED: PT OWN MED DRAWER 7, Y5N ONE (21:37)
[2020-07-02] MEDS: QUEtiapine FUMARATE 200 MG TABLET PO SCH (22:19)
[2020-07-02] MEDS: ZOLPIDEM TARTRATE 5 MG TABLET PO PRN (22:21)
[2020-07-03] MEDS: PHENYTOIN NA EXTENDED 100 MG CAPSULE (FP) PO SCH ×3 (05:35→21:16)
[2020-07-03] MEDS: MORPHINE SULFATE 2 MG/ML VIAL IVPUSH PRN (05:35)
[2020-07-03] MEDS: cloNIDine HCL 0.1 MG TABLET PO SCH ×3 (05:35→21:17)
[2020-07-03] MEDS: DOCUSATE SODIUM 100 MG CAPSULE (FP) PO SCH ×3 (05:35→21:16)
[2020-07-03] MEDS ORDERED: PT OWN MED DRAWER 7, Y5N ONE ×2 (08:56→17:39)
[2020-07-03] MEDS: DEXAMETHASONE SOD PHOSPHATE 4 MG/1 ML VIAL IVPUSH SCH ×2 (09:03→21:15)
[2020-07-03] MEDS: HEPARIN NA (PORCINE) 5,000 UNITS/ML 1ML VIAL SQ SCH ×2 (09:04→21:17)
[2020-07-03] MEDS: GABAPENTIN 400 MG CAPSULE PO SCH ×4 (09:07→21:15)
[2020-07-03] MEDS: ASPIRIN 81 MG CHEWABLE TABLETS PO SCH (09:07)
[2020-07-03] MEDS: LOSARTAN POTASSIUM 50 MG TABLET (FP) PO SCH (09:07)
[2020-07-03] MEDS: FERROUS SO4 325 MG TABLET (FP) PO SCH (09:07)
[2020-07-03] MEDS: FOLIC ACID 1 MG TABLET (FP) PO SCH (09:07)
[2020-07-03] MEDS: amLODIPine BESYLATE 10 MG TABLET (FP) PO SCH (09:08)
[2020-07-03] MEDS: acetaZOLAMIDE 250 MG TABLET PO SCH ×2 (09:08→21:16)
[2020-07-03] MEDS: oxyCODONE HCL 5 MG TABLET PO PRN ×3 (09:30→22:15)
--- NOTE | 2020-07-03 12:14 | PN ---
Progress Note, Physician - Current Medication List Current Medications: Active Medications Acetaminophen (Tylenol -) 1,000 mg PO Q6H PRN PRN Reason: PAIN LEVEL 1 - 3 Last Admin: 07/02/20 17:05 Dose: 1,000 mg Documented by: Acetazolamide (Diamox -) 250 mg PO BID [facility] Last Admin: 07/03/20 09:08 Dose: 250 mg Documented by: Amlodipine Besylate (Norvasc -) 10 mg PO DAILY [facility] Last Admin: 07/03/20 09:08 Dose: 10 mg Documented by: Aspirin (Asa -) 81 mg PO DAILY [facility] Last Admin: 07/03/20 09:07 Dose: 81 mg Documented by: Benzocaine/Menthol (Cepacol Lozenge -) 1 each MM Q4H PRN PRN Reason: SORE THROAT Last Admin: 06/29/20 22:13 Dose: 1 each Documented by: Clonidine (Catapres -) 0.1 mg PO TID [facility] Last Admin: 07/03/20 05:35 Dose: 0.1 mg Documented by: Dexamethasone Sodium Phosphate (Decadron Injection -) 6 mg IVPUSH BID [facility] Last Admin: 07/03/20 09:03 Dose: 6 mg Documented by: Docusate Sodium (Colace -) 100 mg PO TID [facility] Last Admin: 07/03/20 05:35 Dose: 100 mg Documented by: Ferrous Sulfate (Feosol -) 325 mg PO DAILY@0800 [facility] Last Admin: 07/03/20 09:07 Dose: 325 mg Documented by: Folic Acid (Folic Acid -) 1 mg PO DAILY [facility] Last Admin: 07/03/20 09:07 Dose: 1 mg Documented by: Gabapentin (Neurontin -) 800 mg PO QID [facility] Last Admin: 07/03/20 09:07 Dose: 800 mg Documented by: Heparin Sodium (Porcine) (Heparin -) 5,000 unit SQ BID [facility] Last Admin: 07/03/20 09:04 Dose: 5,000 unit Documented by: Losartan Potassium (Cozaar -) 100 mg PO DAILY [facility] Last Admin: 07/03/20 09:07 Dose: 100 mg Documented by: Nitroglycerin (Nitro-Bid 2% Paste -) 0.5 inch TD Q6HPO PRN PRN Reason: HYPERTENSION Ondansetron HCl (Zofran Injection) 4 mg IVPUSH Q6H PRN PRN Reason: NAUSEA Oxycodone HCl (Roxicodone -) 5 mg PO Q6H PRN PRN Reason: PAIN LEVEL 1-5 Oxycodone HCl (Roxicodone -) 10 mg PO Q6H PRN PRN Reason: PAIN LEVEL 6-10 Last Admin: 07/03/20 09:30 Dose: 10 mg Documented by: Phenytoin Sodium (Dilantin -) 100 mg PO TID [facility] Last Admin: 07/03/20 05:35 Dose: 100 mg Documented by: Quetiapine Fumarate (Seroquel -) 200 mg PO HS [facility] Last Admin: 07/02/20 22:19 Dose: 200 mg Documented by: - Objective Vital Signs: Vital Signs Temperature 98.0 F 07/03/20 09:00 Pulse Rate 83 07/03/20 09:00 Respiratory Rate 20 07/03/20 09:00 Blood Pressure 134/86 07/03/20 09:00 O2 Sat by Pulse Oximetry (%) 98 07/03/20 09:00 Cardiovascular: Yes: S1, S2 Respiratory: Yes: Regular, CTA Bilaterally Gastrointestinal: Yes: Normal Bowel Sounds, Soft Labs: CBC, BMP 07/01/20 07:25 07/01/20 07:25 INR, PTT INR 0.90 (0.83-1.09) 06/28/20 10:15 Assessment/Plan - Problems (1) Intractable headache Assessment/Plan: -pain management consult pending -Seen by NS -S/P C spine exploration -For now continue pain meds as per pain level Acetaminophen 1g Q6H pain 1-3 Oxycodone 5 mg Q4H PRN for pain 4-6 Oxycodone 10 mg Q4H PRN for pain 7-10 -Increase Gabapentin to 800 mg po QID -May add tizinadine starting at 2 mg dose if needed in addition to above -PT Problems reviewed: Yes Code(s): R51 - HEADACHE (2) Cervical spinal cord compression Operative Date: 06/28/20 Pre-Operative Diagnosis: Headaches x2 weeks and 2 days of progressive Left arm and leg numbness. New weakness and increased tone in her Left leg. MRI demons trates progression of the C67 HNP and CT demonstrates bilat C45 foraminal stenosis as well as persisting prominence of her bone graft material which is unchanged since after her primary surgery Operation: Posterior approach for reoperative exposure and exploration of her spinal fusion, removal of bone graft material, b/l osteotomies/foraminotomies at C45 and C56. Anterior approach for C67 Anterior Cervical decompression and fusion. Durotomy. Post-Operative Diagnosis: Same as Pre-op Surgeon: Rakan Whitley Campus Recruiting Intern: Anatoliy Thompson Problems reviewed: Yes Code(s): G95.20 - UNSPECIFIED CORD COMPRESSION (3) HTN (hypertension) Assessment/Plan: -Dc IVF -resume home meds and monitor Problems reviewed: Yes Code(s): I10 - ESSENTIAL (PRIMARY) HYPERTENSION
[2020-07-03] MEDS: QUEtiapine FUMARATE 200 MG TABLET PO SCH (21:16)
[2020-07-04] MEDS: DOCUSATE SODIUM 100 MG CAPSULE (FP) PO SCH ×3 (05:32→21:27)
[2020-07-04] MEDS: PHENYTOIN NA EXTENDED 100 MG CAPSULE (FP) PO SCH ×3 (05:32→21:27)
[2020-07-04] MEDS: oxyCODONE HCL 5 MG TABLET PO PRN ×3 (05:33→20:07)
[2020-07-04] MEDS: cloNIDine HCL 0.1 MG TABLET PO SCH ×3 (05:33→21:28)
[2020-07-04] MEDS ORDERED: PT OWN MED DRAWER 7, Y5N ONE ×2 (09:10→20:32)
[2020-07-04] MEDS: amLODIPine BESYLATE 10 MG TABLET (FP) PO SCH (09:14)
[2020-07-04] MEDS: GABAPENTIN 400 MG CAPSULE PO SCH ×4 (09:14→21:26)
[2020-07-04] MEDS: FOLIC ACID 1 MG TABLET (FP) PO SCH (09:14)
[2020-07-04] MEDS: ACETAMINOPHEN 500 MG TABLET (FP) PO PRN (09:14)
[2020-07-04] MEDS: LOSARTAN POTASSIUM 50 MG TABLET (FP) PO SCH (09:14)
[2020-07-04] MEDS: ASPIRIN 81 MG CHEWABLE TABLETS PO SCH (09:15)
[2020-07-04] MEDS: DEXAMETHASONE SOD PHOSPHATE 4 MG/1 ML VIAL IVPUSH SCH ×2 (09:15→21:25)
[2020-07-04] MEDS: HEPARIN NA (PORCINE) 5,000 UNITS/ML 1ML VIAL SQ SCH ×2 (09:15→21:28)
[2020-07-04] MEDS: acetaZOLAMIDE 250 MG TABLET PO SCH ×2 (09:15→21:27)
[2020-07-04] MEDS: FERROUS SO4 325 MG TABLET (FP) PO SCH (09:16)
--- NOTE | 2020-07-04 09:19 | PN ---
Progress Note, Physician - Current Medication List Current Medications: Active Medications Acetaminophen (Tylenol -) 1,000 mg PO Q6H PRN PRN Reason: PAIN LEVEL 1 - 3 Last Admin: 07/04/20 09:14 Dose: 1,000 mg Documented by: Acetazolamide (Diamox -) 250 mg PO BID [facility] Last Admin: 07/04/20 09:15 Dose: 250 mg Documented by: Amlodipine Besylate (Norvasc -) 10 mg PO DAILY [facility] Last Admin: 07/04/20 09:14 Dose: 10 mg Documented by: Aspirin (Asa -) 81 mg PO DAILY [facility] Last Admin: 07/04/20 09:15 Dose: 81 mg Documented by: Benzocaine/Menthol (Cepacol Lozenge -) 1 each MM Q4H PRN PRN Reason: SORE THROAT Last Admin: 06/29/20 22:13 Dose: 1 each Documented by: Clonidine (Catapres -) 0.1 mg PO TID [facility] Last Admin: 07/04/20 05:33 Dose: 0.1 mg Documented by: Dexamethasone Sodium Phosphate (Decadron Injection -) 6 mg IVPUSH BID [facility] Last Admin: 07/04/20 09:15 Dose: 6 mg Documented by: Docusate Sodium (Colace -) 100 mg PO TID [facility] Last Admin: 07/04/20 05:32 Dose: 100 mg Documented by: Ferrous Sulfate (Feosol -) 325 mg PO DAILY@0800 [facility] Last Admin: 07/04/20 09:16 Dose: 325 mg Documented by: Folic Acid (Folic Acid -) 1 mg PO DAILY [facility] Last Admin: 07/04/20 09:14 Dose: 1 mg Documented by: Gabapentin (Neurontin -) 800 mg PO QID [facility] Last Admin: 07/04/20 09:14 Dose: 800 mg Documented by: Heparin Sodium (Porcine) (Heparin -) 5,000 unit SQ BID [facility] Last Admin: 07/04/20 09:15 Dose: 5,000 unit Documented by: Losartan Potassium (Cozaar -) 100 mg PO DAILY [facility] Last Admin: 07/04/20 09:14 Dose: 100 mg Documented by: Nitroglycerin (Nitro-Bid 2% Paste -) 0.5 inch TD Q6HPO PRN PRN Reason: HYPERTENSION Ondansetron HCl (Zofran Injection) 4 mg IVPUSH Q6H PRN PRN Reason: NAUSEA Oxycodone HCl (Roxicodone -) 5 mg PO Q6H PRN PRN Reason: PAIN LEVEL 1-5 Oxycodone HCl (Roxicodone -) 10 mg PO Q6H PRN PRN Reason: PAIN LEVEL 6-10 Last Admin: 07/04/20 05:33 Dose: 10 mg Documented by: Phenytoin Sodium (Dilantin -) 100 mg PO TID [facility] Last Admin: 07/04/20 05:32 Dose: 100 mg Documented by: Quetiapine Fumarate (Seroquel -) 200 mg PO HS [facility] Last Admin: 07/03/20 21:16 Dose: 200 mg Documented by: Zolpidem Tartrate (Ambien -) 5 mg PO HS PRN PRN Reason: INSOMNIA - Objective Vital Signs: Vital Signs Temperature 98.3 F 07/04/20 07:56 Pulse Rate 79 07/04/20 07:56 Respiratory Rate 18 07/04/20 07:56 Blood Pressure 141/76 07/04/20 07:56 O2 Sat by Pulse Oximetry (%) 99 07/04/20 07:56 Cardiovascular: Yes: S1, S2 Respiratory: Yes: Regular, CTA Bilaterally Gastrointestinal: Yes: Normal Bowel Sounds, Soft Labs: CBC, BMP 07/01/20 07:25 07/01/20 07:25 INR, PTT INR 0.90 (0.83-1.09) 06/28/20 10:15 Assessment/Plan - Problems (1) Intractable headache Assessment/Plan: -pain management consult pending -Seen by NS -S/P C spine exploration -For now continue pain meds as per pain level Acetaminophen 1g Q6H pain 1-3 Oxycodone 5 mg Q4H PRN for pain 4-6 Oxycodone 10 mg Q4H PRN for pain 7-10 -Increase Gabapentin to 800 mg po QID -May add tizinadine starting at 2 mg dose if needed in addition to above -PT Problems reviewed: Yes Code(s): R51 - HEADACHE (2) Cervical spinal cord compression Operative Date: 06/28/20 Pre-Operative Diagnosis: Headaches x2 weeks and 2 days of progressive Left arm and leg numbness. New weakness and increased tone in her Left leg. MRI demonstrates progression of the C67 [address] demonstrates bilat C45 foraminal stenosis as well as persisting prominence of her bone graft material which is unchanged since after her primary surgery Operation: Posterior approach for reoperative exposure and exploration of her spinal fusion, removal of bone graft material, b/l osteotomies/foraminotomies at C45 and C56. Anterior approach for C67 Anterior Cervical decompression and fusion. Durotomy. Post-Operative Diagnosis: Same as Pre-op Surgeon: Rakan Whitley Stone Sawyer: Anatoliy Thompson Problems reviewed: Yes Code(s): G95.20 - UNSPECIFIED CORD COMPRESSION (3) HTN (hypertension) Assessment/Plan: -Dc IVF -resume home meds and monitor Problems reviewed: Yes Code(s): I10 - ESSENTIAL (PRIMARY) HYPERTENSION
[2020-07-04] MEDS: QUEtiapine FUMARATE 200 MG TABLET PO SCH (21:27)
[2020-07-04] MEDS: ZOLPIDEM TARTRATE 5 MG TABLET PO PRN (21:30)
--- NOTE | 2020-07-05 00:02 | PN ---
Progress Note (short form) - Note Progress Note: patient making slow recovery. Left hemiparesis improved. Headaches much better. Will remove drain Sunday morning and patient will be ready for discharge to rehab.
[2020-07-05] MEDS: PHENYTOIN NA EXTENDED 100 MG CAPSULE (FP) PO SCH ×3 (06:04→21:18)
[2020-07-05] MEDS: DOCUSATE SODIUM 100 MG CAPSULE (FP) PO SCH ×3 (06:04→21:18)
[2020-07-05] MEDS: cloNIDine HCL 0.1 MG TABLET PO SCH ×3 (06:04→21:19)
[2020-07-05] MEDS: FERROUS SO4 325 MG TABLET (FP) PO SCH (08:35)
[2020-07-05] MEDS ORDERED: PT OWN MED DRAWER 7, Y5N ONE (08:56)
[2020-07-05] MEDS: ASPIRIN 81 MG CHEWABLE TABLETS PO SCH (09:03)
[2020-07-05] MEDS: GABAPENTIN 400 MG CAPSULE PO SCH ×4 (09:03→21:19)
[2020-07-05] MEDS: amLODIPine BESYLATE 10 MG TABLET (FP) PO SCH (09:03)
[2020-07-05] MEDS: oxyCODONE HCL 5 MG TABLET PO PRN ×3 (09:03→22:30)
[2020-07-05] MEDS: acetaZOLAMIDE 250 MG TABLET PO SCH ×2 (09:04→21:19)
[2020-07-05] MEDS: HEPARIN NA (PORCINE) 5,000 UNITS/ML 1ML VIAL SQ SCH (09:04)
[2020-07-05] MEDS: FOLIC ACID 1 MG TABLET (FP) PO SCH (09:04)
[2020-07-05] MEDS: DEXAMETHASONE SOD PHOSPHATE 4 MG/1 ML VIAL IVPUSH SCH ×2 (09:04→21:18)
[2020-07-05] MEDS: LOSARTAN POTASSIUM 50 MG TABLET (FP) PO SCH (09:05)
--- NOTE | 2020-07-05 13:47 | PN ---
Progress Note, Physician - Current Medication List Current Medications: Active Medications Acetaminophen (Tylenol -) 1,000 mg PO Q6H PRN PRN Reason: PAIN LEVEL 1 - 3 Last Admin: 07/04/20 09:14 Dose: 1,000 mg Documented by: Acetazolamide (Diamox -) 250 mg PO BID [facility] Last Admin: 07/05/20 09:04 Dose: 250 mg Documented by: Amlodipine Besylate (Norvasc -) 10 mg PO DAILY [facility] Last Admin: 07/05/20 09:03 Dose: 10 mg Documented by: Aspirin (Asa -) 81 mg PO DAILY [facility] Last Admin: 07/05/20 09:03 Dose: 81 mg Documented by: Benzocaine/Menthol (Cepacol Lozenge -) 1 each MM Q4H PRN PRN Reason: SORE THROAT Last Admin: 06/29/20 22:13 Dose: 1 each Documented by: Clonidine (Catapres -) 0.1 mg PO TID [facility] Last Admin: 07/05/20 13:36 Dose: 0.1 mg Documented by: Dexamethasone Sodium Phosphate (Decadron Injection -) 6 mg IVPUSH BID [facility] Last Admin: 07/05/20 09:04 Dose: 6 mg Documented by: Docusate Sodium (Colace -) 100 mg PO TID [facility] Last Admin: 07/05/20 13:35 Dose: 100 mg Documented by: Ferrous Sulfate (Feosol -) 325 mg PO DAILY@0800 [facility] Last Admin: 07/05/20 08:35 Dose: 325 mg Documented by: Folic Acid (Folic Acid -) 1 mg PO DAILY [facility] Last Admin: 07/05/20 09:04 Dose: 1 mg Documented by: Gabapentin (Neurontin -) 800 mg PO QID [facility] Last Admin: 07/05/20 13:35 Dose: 800 mg Documented by: Heparin Sodium (Porcine) (Heparin -) 5,000 unit SQ BID [facility] Last Admin: 07/05/20 09:04 Dose: 5,000 unit Documented by: Losartan Potassium (Cozaar -) 100 mg PO DAILY [facility] Last Admin: 07/05/20 09:05 Dose: 100 mg Documented by: Nitroglycerin (Nitro-Bid 2% Paste -) 0.5 inch TD Q6HPO PRN PRN Reason: HYPERTENSION Ondansetron HCl (Zofran Injection) 4 mg IVPUSH Q6H PRN PRN Reason: NAUSEA Last Admin: 07/04/20 12:37 Dose: 4 mg Documented by: Oxycodone HCl (Roxicodone -) 5 mg PO Q6H PRN PRN Reason: PAIN LEVEL 1-5 Oxycodone HCl (Roxicodone -) 10 mg PO Q6H PRN PRN Reason: PAIN LEVEL 6-10 Last Admin: 07/05/20 09:03 Dose: 10 mg Documented by: Phenytoin Sodium (Dilantin -) 100 mg PO TID [facility] Last Admin: 07/05/20 13:35 Dose: 100 mg Documented by: Quetiapine Fumarate (Seroquel -) 200 mg PO HS [facility] Last Admin: 07/04/20 21:27 Dose: 200 mg Documented by: Zolpidem Tartrate (Ambien -) 5 mg PO HS PRN PRN Reason: INSOMNIA Last Admin: 07/04/20 21:30 Dose: 5 mg Documented by: - Objective Vital Signs: Vital Signs Temperature 98.4 F 07/05/20 09:00 Pulse Rate 76 07/05/20 09:00 Respiratory Rate 20 07/05/20 09:00 Blood Pressure 114/72 07/05/20 09:00 O2 Sat by Pulse Oximetry (%) 100 07/05/20 09:00 Cardiovascular: Yes: Regular Rate and Rhythm Respiratory: Yes: Regular, CTA Bilaterally Gastrointestinal: Yes: Normal Bowel Sounds, Soft Labs: CBC, BMP 07/01/20 07:25 07/01/20 07:25 INR, PTT INR 0.90 (0.83-1.09) 06/28/20 10:15 Assessment/Plan - Problems (1) Intractable headache Assessment/Plan: -pain management consult pending -Seen by NS -S/P C spine exploration -For now continue pain meds as per pain level Acetaminophen 1g Q6H pain 1-3 Oxycodone 5 mg Q4H PRN for pain 4-6 Oxycodone 10 mg Q4H PRN for pain 7-10 -Increase Gabapentin to 800 mg po QID -May add tizinadine starting at 2 mg dose if needed in addition to above -PT Problems reviewed: Yes Code(s): R51 - HEADACHE (2) Cervical spinal cord compression Operative Date: 06/28/20 Pre-Operative Diagnosis: Headaches x2 weeks and 2 days of progressive Left arm and leg numbness. New weakness and increased tone in her Left leg. MRI demonst rates progression of the C67 HNP and CT demonstrates bilat C45 foraminal stenosis as well as persisting prominence of her bone graft material which is unchanged since after her primary surgery Operation: Posterior approach for reoperative exposure and exploration of her spinal fusion, removal of bone graft material, b/l osteotomies/foraminotomies at C45 and C56. Anterior approach for C67 Anterior Cervical decompression and fusion. Durotomy. Post-Operative Diagnosis: Same as Pre-op Surgeon: Rakan Whitley Professor Of Biostatistics: Anatoliy Thompson Problems reviewed: Yes Code(s): G95.20 - UNSPECIFIED CORD COMPRESSION (3) HTN (hypertension) Assessment/Plan: -Dc IVF -resume home meds and monitor Problems reviewed: Yes Code(s): I10 - ESSENTIAL (PRIMARY) HYPERTENSION
[2020-07-05] MEDS: QUEtiapine FUMARATE 200 MG TABLET PO SCH (21:18)
[2020-07-05] MEDS: ZOLPIDEM TARTRATE 5 MG TABLET PO PRN (21:19)
[2020-07-06] MEDS: cloNIDine HCL 0.1 MG TABLET PO SCH ×2 (06:07→13:53)
[2020-07-06] MEDS: oxyCODONE HCL 5 MG TABLET PO PRN ×2 (06:07→12:37)
[2020-07-06] MEDS: DOCUSATE SODIUM 100 MG CAPSULE (FP) PO SCH ×2 (06:07→13:53)
[2020-07-06] MEDS: PHENYTOIN NA EXTENDED 100 MG CAPSULE (FP) PO SCH ×2 (06:07→13:53)
--- NOTE | 2020-07-06 08:36 | PN ---
Progress Note (short form) - Note Progress Note: NEUROSURGERY POD #8 s/p Alert. Recovering as expected. Left hemiparesis has imroved s/p surgery (moving LUE -- fingers). States her headaches have diminished greatly since surgery as well. PT notes reviewed -- ambulating with rolling walker. Denies n/v/f/c, CP, palpitations, SOB or PADRON. Last Vital Signs Temp Pulse Resp BP Pulse Ox 97.6 F 72 20 127/78 100 07/06/20 06:00 07/06/20 06:00 07/06/20 06:00 07/06/20 06:00 07/06/20 06:00 GEN: A&0x3, NAD Neck: [place] collar in place. Anterior neck c/d/i. Posterior dressing c/d/i. YELENA with minimal output LE: no calf tenderness or swelling noted b/l. Neuro; ventilating engineer strength equal b/l. RLE 5/5 dorsi/plantar flexion. LLE 3/5 dorsi/plantar. A/P: 64 yo female POD #8 Posterior approach for reoperative exposure and exploration of her spinal fusion, removal of bone graft material, b/l osteotomies/foraminotomies at C45 and C56. Anterior approach for C67 Anterior Cervical decompression and fusion. Durotomy. -Oral pain medicaitons -YELENA dc'd on rounds. -Cleared for discharge from Neurosurgery service. -Patient to f/u w/ Dr. Whitley as outlined in DC PLAN. On behalf of Dr. Whitley, thank you for the opportunity to participate in your patient's care. Problem List - Problems (1) Cervical spinal cord compression Code(s): G95.20 - UNSPECIFIED CORD COMPRESSION (2) Intractable headache Code(s): R51 - HEADACHE (3) HTN (hypertension) Code(s): I10 - ESSENTIAL (PRIMARY) HYPERTENSION (4) Migraine Code(s): G43.909 - MIGRAINE, UNSP, NOT INTRACTABLE, WITHOUT STATUS MIGRAINOSUS Qualifiers: Migraine type: unspecified Status migrainosus presence: without status migrainosus Intractability: not intractable Qualified Code(s): G43.909 - Migraine, unspecified, not intractable, without status migrainosus
--- NOTE | 2020-07-06 09:54 | DS ---
Physical Examination Vital Signs: Vital Signs Temperature 97.6 F 07/06/20 06:00 Pulse Rate 72 07/06/20 06:00 Respiratory Rate 20 07/06/20 06:00 Blood Pressure 127/78 07/06/20 06:00 O2 Sat by Pulse Oximetry (%) 100 07/06/20 06:00 Cardiovascular: Yes: Regular Rate and Rhythm Respiratory: Yes: Regular, CTA Bilaterally Gastrointestinal: Yes: Normal Bowel Sounds, Soft Edema: No Neurological: Yes: Alert, Oriented, Pre-Existing Deficit Labs: CBC, BMP 07/01/20 07:25 07/01/20 07:25 Discharge Summary Problems reviewed: Yes Reason For Visit: CERVICAL SPINAL CORD COMPRESSION Current Active Problems Cervical spinal cord compression (Acute) Intractable headache (Acute) Hospital Course: - Problems (1) Intractable headache Assessment/Plan: -pain management consult pending -Seen by NS -S/P C spine exploration -Increase Gabapentin to 800 mg po QID -dc home -PT Problems reviewed: Yes Code(s): R51 - HEADACHE (2) Cervical spinal cord compression Operative Date: 06/28/20 Pre-Operative Diagnosis: Headaches x2 weeks and 2 days of progressive Left arm and leg numbness. New weakness and increased tone in her Left leg. MRI demons trates progression of the C67 HNP and CT demonstrates bilat C45 foraminal stenosis as well as persisting prominence of her bone graft material which is unchanged since after her primary surgery Operation: Posterior approach for reoperative exposure and exploration of her spinal fusion, removal of bone graft material, b/l osteotomies/foraminotomies at C45 and C56. Anterior approach for C67 Anterior Cervical decompression and fusion. Durotomy. Post-Operative Diagnosis: Same as Pre-op Surgeon: Rakan Whitley Welder Journeyman: Anatoliy Thompson Problems reviewed: Yes Code(s): G95.20 - UNSPECIFIED CORD COMPRESSION (3) HTN (hypertension) Assessment/Plan: -Dc IVF -resume home meds and monitor Problems reviewed: Yes Code(s): I10 - ESSENTIAL (PRIMARY) HYPERTENSION Condition: Guarded - Instructions Diet, Activity, Other Instructions: Post Operative Instructions Physical Activity Resume your normal everyday activity as tolerated. No heavy lifting or exercise until seen by your surgeon. You may walk unlimited amounts and climb stairs. You may resume driving the car when you feel safe and comfortable behind the wheel and you are no longer wearing your brace. Do not operate a vehicle while taking narcotic medication. Brace If you had neck surgery, wear surgical collar 23 hr/day. Remove to shower only. Wound Care Keep your incision clean, dry and covered at all times. Apply an occlusive dressing (Saran wrap or Tegaderm) when showering to avoid getting your incision wet. Do not submerge incision or apply ointments or creams. The mike will be removed in the office in 10-14 days post-op. Diet There are no dietary restrictions. Eat healthy, high-fiber foods. Drink 6-8 glasses of liquid each day. This will assist in keeping your bowels regular. Pain Management You may take Tylenol or acetaminophen. Any pain prescription medication ordered should be taken as prescribed for moderate to severe pain. Avoid any ibuprofen (Motrin, Advil, Aleve, Toradol, etc) for 3 months unless otherwise discussed with your surgeon. Call Dr Vega for any of the following: Severe pain not relieved by medication Fever of 101 or higher Excessive bleeding or drainage on dressing Inability to urinate Any chest pain or shortness of breath, seek Emergency Care. Call the office to confirm a post-operative appointment for 2-3 weeks post-op Rakan Whitley MD [facility] [address] [place] [address]. [place] [address] soto this week to check labs and dilantin level Referrals: Yariel Soto [Primary Care Provider] - 1 Week - Home Medications Comprehensive Discharge Medication List: Ambulatory Orders Phenytoin Na Extended [Dilantin -] 100 mg PO TID #0 cap 09/14/17 Zolpidem Tartrate [Ambien] 10 mg PO HS PRN tablet MDD 1 09/14/17 Aspirin [Aspirin EC] 1 tab PO DAILY 11/29/19 Amlodipine Besylate [Norvasc -] 10 mg PO DAILY #30 tablet 12/08/19 Losartan Potassium [Cozaar] 100 mg PO DAILY #30 tablet 12/08/19 Quetiapine Fumarate [Seroquel -] 200 tab PO HS #30 tablet 12/08/19 cloNIDine HCL [Catapres -] 0.1 mg PO TID #90 tablet 12/08/19 Acetaminophen [Tylenol .Regular Strength -] 650 mg PO Q6H PRN tablet 04/27/20 Folic Acid - 1 mg PO DAILY #30 tablet 04/27/20 Gabapentin [Neurontin -] 800 mg PO TID 06/27/20 Acetaminophen [Tylenol .Extra-Strength -] 1,000 mg PO Q6H PRN tablet 07/06/20 Aspirin [ASA -] 81 mg PO DAILY tab.chew 07/06/20 Dexamethasone [Decadron -] 0.5 mg PO Q12H #14 tablet 07/06/20 Docusate Sodium [Colace -] 100 mg PO TID capsule 07/06/20 Ferrous Sulfate [Feosol] 325 mg PO DAILY@0800 ud 07/06/20 Phenytoin Na Extended [Dilantin -] 100 mg PO TID #90 capsule 07/06/20 acetaZOLAMIDE [Diamox -] 250 mg PO BID #60 tablet 07/06/20
[2020-07-06] MEDS ORDERED: DEXAMETHASONE 0.5 MG TABLET PO SCH (10:00)
[2020-07-06] MEDS ORDERED: PT OWN MED DRAWER 7, Y5N ONE ×2 (10:10→11:20)
[2020-07-06] MEDS: FERROUS SO4 325 MG TABLET (FP) PO SCH (10:22)
[2020-07-06] MEDS: amLODIPine BESYLATE 10 MG TABLET (FP) PO SCH (10:22)
[2020-07-06] MEDS: ASPIRIN 81 MG CHEWABLE TABLETS PO SCH (10:22)
[2020-07-06] MEDS: FOLIC ACID 1 MG TABLET (FP) PO SCH (10:22)
[2020-07-06] MEDS: LOSARTAN POTASSIUM 50 MG TABLET (FP) PO SCH (10:23)
[2020-07-06] MEDS: GABAPENTIN 400 MG CAPSULE PO SCH ×3 (10:23→18:53)
[2020-07-06] MEDS: acetaZOLAMIDE 250 MG TABLET PO SCH (10:24)
[2020-07-06 16:58] VITALS: BP 161/82; PULSE 86; TEMP 98
== END 2020-07-06 18:53 | disposition home or self-care (01) | DRG 453 ==
LOC: JER 11:07 → JERBED 16:35 → J8W 22:18
PROVIDERS: ADMIT Student in an Organized Health Care Education/Training Program; ATTEND Family Medicine
PROC: 0RG2070 Fusion of 2 or more Cervical Vertebral Joints with Autologous Tissue Substitute, Anterior Approach, Anterior Column, Open Approach (ICD-10-PCS; 2020-06-28)
PROC: 0RP104Z Removal of Internal Fixation Device from Cervical Vertebral Joint, Open Approach (ICD-10-PCS; 2020-06-28)
PROC: 0HX6XZZ Transfer Back Skin, External Approach (ICD-10-PCS; 2020-06-28)
PROC: 0RB30ZZ Excision of Cervical Vertebral Disc, Open Approach (ICD-10-PCS; 2020-06-28)
PROC: 00Q20ZZ Repair Dura Mater, Open Approach (ICD-10-PCS; 2020-06-28)
PROC: B01BZZZ Fluoroscopy of Spinal Cord (ICD-10-PCS; 2020-06-28)
PROC: 4A11X4G Monitoring of Peripheral Nervous Electrical Activity, Intraoperative, External Approach (ICD-10-PCS; 2020-06-28)
PROC: 0RG10A0 Fusion of Cervical Vertebral Joint with Interbody Fusion Device, Anterior Approach, Anterior Column, Open Approach (ICD-10-PCS; principal; 2020-06-28 11:30)
PROC: 0RG2071 Fusion of 2 or more Cervical Vertebral Joints with Autologous Tissue Substitute, Posterior Approach, Posterior Column, Open Approach (ICD-10-PCS; 2020-06-28 11:30)
DX: M47.12 Other spondylosis with myelopathy, cervical region (principal); G95.19 Other vascular myelopathies; G95.29 Other cord compression; G96.11 Dural tear; G81.94 Hemiplegia, unspecified affecting left nondominant side; M40.292 Other kyphosis, cervical region; I25.10 Atherosclerotic heart disease of native coronary artery without angina pectoris; I48.91 Unspecified atrial fibrillation; I10 Essential (primary) hypertension; E78.5 Hyperlipidemia, unspecified; J45.909 Unspecified asthma, uncomplicated; Z87.891 Personal history of nicotine dependence; G40.909 Epilepsy, unspecified, not intractable, without status epilepticus; G43.909 Migraine, unspecified, not intractable, without status migrainosus
CPT/HCPCS: 36415; 70450-TC; 70551-TC; 71045-TC-FY; 72125-TC; 72141-TC; 76000-TC-FY; 80048; 80053; 82550; 82553; 84484; 85025; 85027; 85610; 85651; 85730; 86140; 86850; 86900; 86901; 93005; 93010; 94760; 97116-GP; 97161-GP; 99285-25; J0131; J0735; J1644; J8540; U0003

== ENCOUNTER 2021-08-05 23:40 | Inpatient (IN) | payer OTHER ==
[2021-08-05] MEDS ORDERED: morphine CARPU-JECT 4 MG/1 ML DISP.SYRIN IVPUSH ONE (23:56)
[2021-08-05] MEDS ORDERED: LACTATED RINGERS SOLUTION 1,000 ML IV STA (23:56)
[2021-08-05] MEDS ORDERED: ONDANSETRON 4 MG/2 ML VIAL IVPUSH ONE (23:56)
[2021-08-06] MEDS ORDERED: morphine SULFATE 4 MG/ML VIAL ONE ×3 (00:01→17:00)
[2021-08-06] MEDS ORDERED: ONDANSETRON 4 MG/2 ML VIAL ONE ×2 (00:01→11:44)
[2021-08-06 01:21] LABS: HEMATOCRIT 40.4 % (32.4-45.2); HEMOGLOBIN 13.7 GM/dL (10.7-15.3); MCH 32.2 pg (25.7-33.7); MCHC 33.9 g/dl (32.0-36.0); MEAN CELL VOLUME 94.9 fl (80-96); MEAN PLT VOLUME 10.6 fl (7.5-11.1); PLATELET COUNT 194 10^3/uL (134-434); RBC 4.26 M/mm3 (3.60-5.2); WHITE BLOOD COUNT 15.8 K/mm3 (4.0-10.0)
[2021-08-06 01:31] LABS: INR 0.92 (0.83-1.09); PROTHROMBIN TIME (PATIENT) 11.1 SEC (9.7-13.0)
[2021-08-06 01:34] LABS: ACTIVATED PTT 33.1 SECONDS (25.2-36.5)
[2021-08-06 01:56] LABS: CALCIUM 9.5 mg/dL (8.5-10.1)
[2021-08-06 01:57] LABS: ALBUMIN 4.5 g/dl (3.4-5.0)
[2021-08-06 02:00] LABS: CREATININE 1.7 mg/dL (0.55-1.3)
[2021-08-06 02:01] LABS: BILIRUBIN,TOTAL 0.6 mg/dL (0.2-1); TOT PROT 8.8 g/dl (6.4-8.2)
[2021-08-06 02:39] LABS: LACTIC ACID 2.3 mmol/L (0.4-2.0)
[2021-08-06] MEDS ORDERED: morphine CARPU-JECT 2 MG/1 ML DISP.SYRIN IVPUSH ONE ×2 (03:08→16:55)
[2021-08-06 03:48] LABS: EPI CELLS 16 /uL (0-25.1); HYALINE CASTS 3 /uL (0-3.1); PH,URINE 5.5 (5.0-8.0); URINE APPEARANCE CLEAR; URINE BACTERIA 140 /uL (0-1359); URINE BILIRUBIN NEGATIVE (NEGATIVE); URINE COLOR YELLOW; URINE GLUCOSE (UA) NEGATIVE (NEGATIVE); URINE KETONE NEGATIVE (NEGATIVE); URINE LEUK ESTERASE TRACE (NEGATIVE); URINE NITRITE NEGATIVE (NEGATIVE); URINE PROTEIN 1+ (NEGATIVE); URINE RBC 7 /uL (0-23.9); URINE UROBILINOGEN 0.2 mg/dL (0.2-1.0); URINE WBC 15 /uL (0-25.8)
[2021-08-06 04:36] LABS: ANISOCYTOSIS 1+; MACROCYTOSIS 1+; PLATELET ESTIMATE NORMAL
[2021-08-06] MEDS ORDERED: LACTATED RINGERS SOLUTION 1000 ML INFUS.BAG IV ONE (04:48)
[2021-08-06] MEDS ORDERED: SODIUM CHLORIDE 0.9% 500 ML INFUS.BAG IV ONE (04:48)
[2021-08-06] MEDS ORDERED: ACETAMINOPHEN INJECTION 100 ML IVPB ONE (06:00)
[2021-08-06] MEDS ORDERED: ACETAMINOPHEN 1000 MG/100 ML VIAL IVPB ONE (06:08)
[2021-08-06] MEDS ORDERED: amLODIPine BESYLATE 10 MG TABLET (FP) PO ONE (06:47)
[2021-08-06] MEDS ORDERED: LOSARTAN POTASSIUM 50 MG TABLET PO ONE (06:47)
[2021-08-06] MEDS ORDERED: amLODIPine BESYLATE 5 MG TABLET (FP) ONE (06:50)
[2021-08-06] MEDS ORDERED: LOSARTAN POTASSIUM 50 MG TABLET ONE (06:51)
[2021-08-06] MEDS ORDERED: MAG HYDROX/AL HYDROX/SIMETH -MYLANTA- ORAL SUSPENSION PO ONE (07:50)
[2021-08-06] MEDS ORDERED: FAMOTIDINE 20 MG/50 ML IVPB 20 MG/50 ML MG IVPB ONE ×2 (07:50→08:25)
[2021-08-06] MEDS ORDERED: LIDOCAINE VISCOUS 2% ORAL/TOP 15 ML UNIT-DOSE CUP MM ONE (08:15)
[2021-08-06] MEDS ORDERED: LIDOCAINE VISCOUS 2% ORAL/TOP 15 ML UNIT-DOSE CUP ONE (08:24)
[2021-08-06] MEDS ORDERED: MAG HYDROX/AL HYDROX/SIMETH 30 ML UNIT-DOSE CUP ONE (08:25)
[2021-08-06] MEDS ORDERED: ONDANSETRON 4 MG/2 ML VIAL IVPUSH ONE (11:45)
[2021-08-06] MEDS ORDERED: HYDROmorphone HCl 2 MG/ML VIAL IVPUSH PRN (16:05)
[2021-08-06] MEDS ORDERED: DEXAMETHASONE SOD PHOSPHATE 4 MG/1 ML VIAL ONE (17:00)
[2021-08-06] MEDS: D5-1/2NS+20 MEQ KCL - 20 MEQ/1,000 ML INFUS.BAG IV SCH ×2 (17:06→22:27)
[2021-08-06] MEDS: DEXAMETHASONE 0.5 MG TABLET PO SCH (17:07)
[2021-08-06 19:10] LABS: CALCIUM 9.3 mg/dL (8.5-10.1)
[2021-08-06 19:14] LABS: CREATININE 0.6 mg/dL (0.55-1.3)
[2021-08-06] MEDS: ONDANSETRON 4 MG/2 ML VIAL IVPUSH PRN (21:13)
[2021-08-06] MEDS: HYDROmorphone HCl 2 MG/ML VIAL IVPB PRN (22:17)
[2021-08-06] MEDS: PHENYTOIN NA EXTENDED 100 MG CAPSULE (FP) PO SCH (23:02)
[2021-08-06] MEDS: acetaZOLAMIDE 250 MG TABLET PO SCH (23:11)
[2021-08-06] MEDS: cloNIDine HCL 0.1 MG TABLET PO SCH (23:13)
[2021-08-06] MEDS: HEPARIN NA (PORCINE) 5,000 UNITS/ML 1ML VIAL SQ SCH (23:14)
[2021-08-06] MEDS: QUEtiapine FUMARATE 100 MG TABLET (FP) PO SCH (23:14)
[2021-08-06] MEDS: GABAPENTIN 400 MG CAPSULE PO SCH (23:16)
[2021-08-07] MEDS: HYDROmorphone HCl 2 MG/ML VIAL IVPB PRN ×5 (02:28→20:39)
[2021-08-07] MEDS ORDERED: ACETAMINOPHEN 1000 MG/100 ML VIAL IVPB ONE (03:39)
[2021-08-07] MEDS: ONDANSETRON 4 MG/2 ML VIAL IVPUSH PRN ×3 (04:59→21:35)
[2021-08-07] MEDS: DEXAMETHASONE 0.5 MG TABLET PO SCH ×2 (05:33→16:10)
[2021-08-07] MEDS: GABAPENTIN 400 MG CAPSULE PO SCH ×3 (05:46→22:22)
[2021-08-07] MEDS: PHENYTOIN NA EXTENDED 100 MG CAPSULE (FP) PO SCH ×3 (05:46→22:23)
[2021-08-07] MEDS: cloNIDine HCL 0.1 MG TABLET PO SCH ×3 (06:29→22:22)
[2021-08-07 08:14] LABS: BASO % 0.4 % (0-2.0); HEMATOCRIT 39.4 % (32.4-45.2); HEMOGLOBIN 13.3 GM/dL (10.7-15.3); LYMPH % 8.2 % (8-40); MCH 32.6 pg (25.7-33.7); MCHC 33.8 g/dl (32.0-36.0); MEAN CELL VOLUME 96.4 fl (80-96); MEAN PLT VOLUME 11.2 fl (7.5-11.1); MONO % 4.4 % (3.8-10.2); PLATELET COUNT 167 10^3/uL (134-434); RBC 4.09 M/mm3 (3.60-5.2); RDW 13.7 % (11.6-15.6); WHITE BLOOD COUNT 14.6 K/mm3 (4.0-10.0)
[2021-08-07 09:58] LABS: CHLORIDE 107 mmol/L (98-107); SODIUM 138 mmol/L (136-145)
[2021-08-07] MEDS ORDERED: FLU VACC QS2021-22(6MOS UP)/PF 60 MCG/0.5 ML SYRINGE IM ONE (10:00)
[2021-08-07] MEDS ORDERED: PNEUMOC 13-VAL CONJ-DIP CRM/PF 0.5 ML DISP.SYRIN IM ONE (10:00)
[2021-08-07 10:03] LABS: ALBUMIN 4.2 g/dl (3.4-5.0)
[2021-08-07 10:04] LABS: ANION GAP 11 MMOL/L (8-16); BLOOD UREA NITROGEN 21.1 mg/dL (7-18); CO2 20 mmol/L (21-32); MAGNESIUM 2.5 mg/dL (1.8-2.4)
[2021-08-07 10:07] LABS: CREATININE 0.8 mg/dL (0.55-1.3); SGPT/ALT 34 U/L (13-61)
[2021-08-07 10:08] LABS: SGOT/AST 27 U/L (15-37)
[2021-08-07 10:09] LABS: BILIRUBIN,TOTAL 0.5 mg/dL (0.2-1); TOT PROT 8.2 g/dl (6.4-8.2)
[2021-08-07 10:10] LABS: ALK PHOS 97 U/L (45-117)
[2021-08-07 10:19] LABS: GLUCOSE,RANDOM 127 mg/dL (74-106)
[2021-08-07] MEDS ORDERED: PT OWN MED DRAWER 7, Y5N ONE (10:50)
[2021-08-07] MEDS: amLODIPine BESYLATE 10 MG TABLET (FP) PO SCH (11:06)
[2021-08-07] MEDS: LOSARTAN POTASSIUM 50 MG TABLET PO SCH (11:06)
[2021-08-07] MEDS: ASPIRIN 81 MG CHEWABLE TABLETS PO SCH (11:06)
[2021-08-07] MEDS: HEPARIN NA (PORCINE) 5,000 UNITS/ML 1ML VIAL SQ SCH ×2 (11:07→22:22)
[2021-08-07] MEDS: acetaZOLAMIDE 250 MG TABLET PO SCH ×2 (11:13→22:22)
[2021-08-07] MEDS: D5-1/2NS+20 MEQ KCL - 20 MEQ/1,000 ML INFUS.BAG IV SCH ×2 (11:54→16:50)
[2021-08-07] MEDS: PANTOPRAZOLE SODIUM 40 MG VIAL IVPUSH SCH (21:36)
[2021-08-07] MEDS ORDERED: QUEtiapine FUMARATE 50 MG TABLET ONE (22:17)
[2021-08-07] MEDS: QUEtiapine FUMARATE 100 MG TABLET (FP) PO SCH (22:23)
[2021-08-08] MEDS: D5-1/2NS+20 MEQ KCL - 20 MEQ/1,000 ML INFUS.BAG IV SCH ×2 (01:05→19:02)
[2021-08-08] MEDS: cloNIDine HCL 0.1 MG TABLET PO SCH ×3 (04:59→22:19)
[2021-08-08] MEDS: PHENYTOIN NA EXTENDED 100 MG CAPSULE (FP) PO SCH ×2 (04:59→15:58)
[2021-08-08] MEDS: GABAPENTIN 400 MG CAPSULE PO SCH ×3 (04:59→22:19)
[2021-08-08] MEDS: DEXAMETHASONE 0.5 MG TABLET PO SCH ×2 (04:59→15:58)
[2021-08-08] MEDS: HYDROmorphone HCl 2 MG/ML VIAL IVPB PRN ×3 (06:39→19:50)
[2021-08-08 07:16] LABS: BASO % 0.2 % (0-2.0); EOS % 0.4 % (0-4.5); HEMATOCRIT 35.7 % (32.4-45.2); LYMPH % 26.6 % (8-40); MCH 32.5 pg (25.7-33.7); MCHC 33.5 g/dl (32.0-36.0); MEAN PLT VOLUME 10.7 fl (7.5-11.1); MONO % 7.2 % (3.8-10.2); NEUT % 65.6 % (42.8-82.8); PLATELET COUNT 122 10^3/uL (134-434); RBC 3.68 M/mm3 (3.60-5.2); RDW 13.5 % (11.6-15.6)
[2021-08-08 07:31] LABS: CHLORIDE 110 mmol/L (98-107); SODIUM 138 mmol/L (136-145)
[2021-08-08 07:37] LABS: CALCIUM 8.3 mg/dL (8.5-10.1)
[2021-08-08 07:38] LABS: ANION GAP 6 MMOL/L (8-16); CO2 22 mmol/L (21-32); GLUCOSE,RANDOM 254 mg/dL (74-106)
[2021-08-08 07:39] LABS: AMYLASE 111 U/L (25-115); SGPT/ALT 28 U/L (13-61)
[2021-08-08 07:40] LABS: CREATININE 0.8 mg/dL (0.55-1.3); SGOT/AST 23 U/L (15-37)
[2021-08-08 07:41] LABS: BILIRUBIN,TOTAL 0.6 mg/dL (0.2-1); TOT PROT 6.8 g/dl (6.4-8.2)
[2021-08-08 07:42] LABS: ALK PHOS 79 U/L (45-117)
[2021-08-08 08:06] LABS: ALBUMIN 3.3 g/dl (3.4-5.0)
[2021-08-08] MEDS ORDERED: FLU VACC QS2021-22(6MOS UP)/PF 60 MCG/0.5 ML SYRINGE IM ONE (10:00)
[2021-08-08] MEDS: amLODIPine BESYLATE 10 MG TABLET (FP) PO SCH (11:34)
[2021-08-08] MEDS: PANTOPRAZOLE SODIUM 40 MG VIAL IVPUSH SCH ×2 (11:35→22:19)
[2021-08-08] MEDS: LOSARTAN POTASSIUM 50 MG TABLET PO SCH (11:35)
[2021-08-08] MEDS: HEPARIN NA (PORCINE) 5,000 UNITS/ML 1ML VIAL SQ SCH ×2 (11:35→22:19)
[2021-08-08] MEDS: ASPIRIN 81 MG CHEWABLE TABLETS PO SCH (11:36)
[2021-08-08] MEDS: acetaZOLAMIDE 250 MG TABLET PO SCH ×3 (11:38→22:19)
[2021-08-08 15:56] VITALS: BMI 23.0
[2021-08-08] MEDS ORDERED: PT OWN MED DRAWER 7, Y5N ONE ×2 (16:43→20:44)
[2021-08-08] MEDS ORDERED: QUEtiapine FUMARATE 50 MG TABLET ONE (20:43)
[2021-08-08] MEDS: LACOSAMIDE 50 MG TABLET PO SCH (22:18)
[2021-08-08] MEDS: QUEtiapine FUMARATE 100 MG TABLET (FP) PO SCH (22:19)
[2021-08-09] MEDS: HYDROmorphone HCl 2 MG/ML VIAL IVPB PRN ×4 (04:57→20:02)
[2021-08-09] MEDS: cloNIDine HCL 0.1 MG TABLET PO SCH ×3 (05:00→21:22)
[2021-08-09] MEDS: GABAPENTIN 400 MG CAPSULE PO SCH ×3 (05:00→21:23)
[2021-08-09] MEDS: DEXAMETHASONE 0.5 MG TABLET PO SCH ×2 (05:01→18:19)
[2021-08-09] MEDS: D5-1/2NS+20 MEQ KCL - 20 MEQ/1,000 ML INFUS.BAG IV SCH ×2 (07:54→18:19)
[2021-08-09] MEDS ORDERED: PT OWN MED DRAWER 7, Y5N ONE ×2 (09:15→16:21)
[2021-08-09] MEDS: LOSARTAN POTASSIUM 50 MG TABLET PO SCH (09:31)
[2021-08-09] MEDS: ASPIRIN 81 MG CHEWABLE TABLETS PO SCH (09:31)
[2021-08-09] MEDS: amLODIPine BESYLATE 10 MG TABLET (FP) PO SCH (09:32)
[2021-08-09] MEDS: PANTOPRAZOLE SODIUM 40 MG VIAL IVPUSH SCH (09:32)
[2021-08-09] MEDS: acetaZOLAMIDE 250 MG TABLET PO SCH ×2 (09:34→21:20)
[2021-08-09] MEDS: LACOSAMIDE 50 MG TABLET PO SCH ×2 (09:34→21:24)
[2021-08-09] MEDS: HEPARIN NA (PORCINE) 5,000 UNITS/ML 1ML VIAL SQ SCH ×2 (09:34→21:21)
[2021-08-09] MEDS: PANTOPRAZOLE 40 MG TABLET PO SCH (10:25)
[2021-08-09 11:29] LABS: HEMOGLOBIN 12.4 GM/dL (10.7-15.3); LYMPH % 21.1 % (8-40); MCH 32.9 pg (25.7-33.7); MCHC 33.6 g/dl (32.0-36.0); MEAN CELL VOLUME 97.8 fl (80-96); MONO % 8.7 % (3.8-10.2); NEUT % 68.6 % (42.8-82.8); PLATELET COUNT 138 10^3/uL (134-434); RBC 3.78 M/mm3 (3.60-5.2); RDW 13.2 % (11.6-15.6); WHITE BLOOD COUNT 8.2 K/mm3 (4.0-10.0)
[2021-08-09 11:30] LABS: BASO % 0.6 % (0-2.0)
[2021-08-09] MEDS ORDERED: QUEtiapine FUMARATE 50 MG TABLET ONE (20:37)
[2021-08-09] MEDS: QUEtiapine FUMARATE 100 MG TABLET (FP) PO SCH (21:20)
[2021-08-10] MEDS: DEXAMETHASONE 0.5 MG TABLET PO SCH ×3 (05:15→16:50)
[2021-08-10] MEDS: GABAPENTIN 400 MG CAPSULE PO SCH ×3 (06:17→21:42)
[2021-08-10] MEDS: cloNIDine HCL 0.1 MG TABLET PO SCH ×3 (06:19→21:42)
[2021-08-10 07:26] LABS: BASO % 0.5 % (0-2.0); EOS % 2.9 % (0-4.5); HEMOGLOBIN 13.2 GM/dL (10.7-15.3); LYMPH % 31.5 % (8-40); MCH 32.8 pg (25.7-33.7); MCHC 33.8 g/dl (32.0-36.0); MEAN CELL VOLUME 97.1 fl (80-96); MEAN PLT VOLUME 11.4 fl (7.5-11.1); MONO % 9.6 % (3.8-10.2); NEUT % 55.5 % (42.8-82.8); PLATELET COUNT 120 10^3/uL (134-434); RBC 4.02 M/mm3 (3.60-5.2); RDW 13.6 % (11.6-15.6); WHITE BLOOD COUNT 5.5 K/mm3 (4.0-10.0)
[2021-08-10 08:43] LABS: BLOOD UREA NITROGEN 19.8 mg/dL (7-18)
[2021-08-10 08:46] LABS: CREATININE 0.7 mg/dL (0.55-1.3)
[2021-08-10] MEDS ORDERED: PT OWN MED DRAWER 7, Y5N ONE ×3 (08:58→16:41)
[2021-08-10] MEDS: LOSARTAN POTASSIUM 50 MG TABLET PO SCH (09:05)
[2021-08-10] MEDS: LACOSAMIDE 50 MG TABLET PO SCH ×2 (09:06→21:41)
[2021-08-10] MEDS: ASPIRIN 81 MG CHEWABLE TABLETS PO SCH (09:06)
[2021-08-10] MEDS: PANTOPRAZOLE 40 MG TABLET PO SCH (09:06)
[2021-08-10] MEDS: HEPARIN NA (PORCINE) 5,000 UNITS/ML 1ML VIAL SQ SCH ×2 (09:06→21:42)
[2021-08-10] MEDS: amLODIPine BESYLATE 10 MG TABLET (FP) PO SCH (09:06)
[2021-08-10] MEDS: acetaZOLAMIDE 250 MG TABLET PO SCH ×2 (09:08→21:41)
[2021-08-10] MEDS: ACETAMINOPHEN 500 MG TABLET (FP) PO PRN ×2 (10:12→17:49)
[2021-08-10] MEDS: oxyCODONE HCL 5 MG TABLET PO PRN ×2 (13:42→21:38)
[2021-08-10] MEDS: POLYETHYLENE GLYCOL (HEALTHYLAX) 3350 17 GM PACKET PO SCH ×2 (13:42→21:40)
[2021-08-10] MEDS: DOCUSATE SODIUM 100 MG CAPSULE (FP) PO SCH ×2 (13:42→21:42)
[2021-08-10] MEDS ORDERED: QUEtiapine FUMARATE 50 MG TABLET ONE (21:21)
[2021-08-10] MEDS: QUEtiapine FUMARATE 100 MG TABLET (FP) PO SCH (21:43)
[2021-08-11] MEDS: DEXAMETHASONE 0.5 MG TABLET PO SCH ×2 (05:00→10:04)
[2021-08-11] MEDS: GABAPENTIN 400 MG CAPSULE PO SCH ×3 (05:34→21:35)
[2021-08-11] MEDS: DOCUSATE SODIUM 100 MG CAPSULE (FP) PO SCH ×3 (05:35→21:33)
[2021-08-11] MEDS: cloNIDine HCL 0.1 MG TABLET PO SCH ×3 (05:35→21:33)
[2021-08-11] MEDS: oxyCODONE HCL 5 MG TABLET PO PRN ×4 (05:57→23:50)
[2021-08-11] MEDS ORDERED: PT OWN MED DRAWER 7, Y5N ONE ×2 (09:54→11:59)
[2021-08-11] MEDS: amLODIPine BESYLATE 10 MG TABLET (FP) PO SCH (10:03)
[2021-08-11] MEDS: ASPIRIN 81 MG CHEWABLE TABLETS PO SCH (10:03)
[2021-08-11] MEDS: LOSARTAN POTASSIUM 50 MG TABLET PO SCH (11:00)
[2021-08-11] MEDS: PANTOPRAZOLE 40 MG TABLET PO SCH (11:00)
[2021-08-11] MEDS: HEPARIN NA (PORCINE) 5,000 UNITS/ML 1ML VIAL SQ SCH ×2 (11:00→21:34)
[2021-08-11] MEDS: POLYETHYLENE GLYCOL (HEALTHYLAX) 3350 17 GM PACKET PO SCH ×2 (11:49→21:33)
[2021-08-11] MEDS: LACOSAMIDE 50 MG TABLET PO SCH ×2 (11:51→21:33)
[2021-08-11] MEDS: acetaZOLAMIDE 250 MG TABLET PO SCH ×2 (11:52→21:34)
[2021-08-11 13:28] LABS: BASO % 0.8 % (0-2.0); EOS % 3.7 % (0-4.5); HEMATOCRIT 38.2 % (32.4-45.2); HEMOGLOBIN 12.9 GM/dL (10.7-15.3); LYMPH % 30.9 % (8-40); MCH 32.5 pg (25.7-33.7); MCHC 33.8 g/dl (32.0-36.0); MEAN CELL VOLUME 96.2 fl (80-96); MEAN PLT VOLUME 11.5 fl (7.5-11.1); MONO % 7.8 % (3.8-10.2); NEUT % 56.8 % (42.8-82.8); PLATELET COUNT 159 10^3/uL (134-434); RBC 3.97 M/mm3 (3.60-5.2); RDW 13.5 % (11.6-15.6); WHITE BLOOD COUNT 5.6 K/mm3 (4.0-10.0)
[2021-08-11 14:00] LABS: CALCIUM 8.6 mg/dL (8.5-10.1)
[2021-08-11 14:01] LABS: BLOOD UREA NITROGEN 20.6 mg/dL (7-18)
[2021-08-11 14:04] LABS: CREATININE 0.7 mg/dL (0.55-1.3)
[2021-08-11] MEDS ORDERED: BISACODYL 10 MG SUPP.RECT PR ONE (17:17)
[2021-08-11] MEDS: QUEtiapine FUMARATE 100 MG TABLET (FP) PO SCH (21:36)
[2021-08-12] MEDS: cloNIDine HCL 0.1 MG TABLET PO SCH ×2 (06:06→16:43)
[2021-08-12] MEDS: GABAPENTIN 400 MG CAPSULE PO SCH ×2 (06:06→16:44)
[2021-08-12] MEDS: DOCUSATE SODIUM 100 MG CAPSULE (FP) PO SCH ×2 (06:07→16:38)
[2021-08-12] MEDS: oxyCODONE HCL 5 MG TABLET PO PRN ×2 (08:29→16:42)
[2021-08-12 08:38] LABS: BASO % 1.3 % (0-2.0); EOS % 4.5 % (0-4.5); HEMATOCRIT 37.3 % (32.4-45.2); HEMOGLOBIN 12.7 GM/dL (10.7-15.3); LYMPH % 45.7 % (8-40); MCH 32.7 pg (25.7-33.7); MCHC 34.1 g/dl (32.0-36.0); MEAN CELL VOLUME 95.7 fl (80-96); MEAN PLT VOLUME 11.6 fl (7.5-11.1); MONO % 8.8 % (3.8-10.2); NEUT % 39.7 % (42.8-82.8); PLATELET COUNT 171 10^3/uL (134-434); RDW 13.6 % (11.6-15.6); WHITE BLOOD COUNT 5.6 K/mm3 (4.0-10.0)
[2021-08-12 09:12] LABS: BLOOD UREA NITROGEN 28.4 mg/dL (7-18)
[2021-08-12 09:16] LABS: CREATININE 0.9 mg/dL (0.55-1.3)
[2021-08-12] MEDS ORDERED: PT OWN MED DRAWER 7, Y5N ONE (11:25)
[2021-08-12] MEDS: LACOSAMIDE 50 MG TABLET PO SCH (11:31)
[2021-08-12] MEDS: amLODIPine BESYLATE 10 MG TABLET (FP) PO SCH (11:31)
[2021-08-12] MEDS: LOSARTAN POTASSIUM 50 MG TABLET PO SCH (11:31)
[2021-08-12] MEDS: POLYETHYLENE GLYCOL (HEALTHYLAX) 3350 17 GM PACKET PO SCH (11:32)
[2021-08-12] MEDS: PANTOPRAZOLE 40 MG TABLET PO SCH (11:32)
[2021-08-12] MEDS: ASPIRIN 81 MG CHEWABLE TABLETS PO SCH (11:32)
[2021-08-12] MEDS: HEPARIN NA (PORCINE) 5,000 UNITS/ML 1ML VIAL SQ SCH (11:32)
[2021-08-12] MEDS: acetaZOLAMIDE 250 MG TABLET PO SCH (11:33)
[2021-08-12 14:02] VITALS: BP 126/65; PULSE 103; TEMP 97.4
== END 2021-08-12 19:53 | disposition home or self-care (01) | DRG 392 ==
LOC: JER 23:40 → JERBED 08-06 12:34 → J7W 08-06 20:46
PROVIDERS: ADMIT Family Medicine; ATTEND Family Medicine
DX: K52.9 Noninfective gastroenteritis and colitis, unspecified (principal); N17.9 Acute kidney failure, unspecified; R11.2 Nausea with vomiting, unspecified; K83.8 Other specified diseases of biliary tract; M54.9 Dorsalgia, unspecified; G62.9 Polyneuropathy, unspecified; I25.10 Atherosclerotic heart disease of native coronary artery without angina pectoris; I10 Essential (primary) hypertension; R56.9 Unspecified convulsions
CPT/HCPCS: 36415; 74176-TC; 80048; 80053; 80185; 81003; 82105; 82150; 82550; 82553; 82787; 83605; 83690; 83735; 84443; 84484; 85025; 85610; 85730; 86140; 86301; 86850; 86900; 86901; 87040; 87086; 90686; 93005; 93010; 97116-GP; 97161-GP; 99285-25; C9803; G0008; J0131; J0735; J1644; J8540; U0003; U0005

== ENCOUNTER 2022-02-25 21:48 | Day surgery (SDC) | payer OTHER ==
[2022-02-16 14:15] VITALS: BMI 25.6
[2022-02-24] MEDS: HYDROmorphone HCL CARPU-JECT 2 MG/1 ML DISP.SYRIN IVPUSH PRN ×4 (16:00→16:32)
[2022-02-24] MEDS: ACETAMINOPHEN 500 MG TABLET (FP) PO SCH ×2 (16:33→22:13)
[2022-02-24] MEDS: oxyCODONE HCL 5 MG TABLET PO PRN ×3 (16:42→20:42)
[2022-02-24] MEDS: oxyCODONE HCL 10 MG SUSTAINED ACTING TABLET PO SCH ×2 (18:26→22:12)
[2022-02-24] MEDS: CEFAZOLIN 1 GM in DEXTROSE 5%-WATER - 50 ML IVPB SCH (20:42)
[2022-02-24] MEDS: QUEtiapine FUMARATE 200 MG TABLET PO SCH (22:12)
[2022-02-24] MEDS: cloNIDine HCL 0.1 MG TABLET PO SCH (22:13)
[2022-02-24] MEDS: DOCUSATE SODIUM 100 MG CAPSULE (FP) PO SCH (22:13)
[2022-02-24] MEDS: GABAPENTIN 400 MG CAPSULE PO SCH (22:13)
[2022-02-24] MEDS: PHENYTOIN NA EXTENDED 100 MG CAPSULE (FP) PO SCH (22:13)
[2022-02-25] MEDS: oxyCODONE HCL 5 MG TABLET PO PRN ×4 (00:34→17:00)
[2022-02-25] MEDS: CEFAZOLIN 1 GM in DEXTROSE 5%-WATER - 50 ML IVPB SCH (02:17)
[2022-02-25] MEDS: ACETAMINOPHEN 500 MG TABLET (FP) PO SCH ×4 (04:17→16:59)
[2022-02-25] MEDS: DOCUSATE SODIUM 100 MG CAPSULE (FP) PO SCH ×3 (06:11→21:33)
[2022-02-25] MEDS: GABAPENTIN 400 MG CAPSULE PO SCH ×3 (06:11→21:36)
[2022-02-25] MEDS: PHENYTOIN NA EXTENDED 100 MG CAPSULE (FP) PO SCH ×3 (06:12→21:44)
[2022-02-25] MEDS: cloNIDine HCL 0.1 MG TABLET PO SCH ×3 (06:12→21:36)
[2022-02-25 08:03] LABS: HEMATOCRIT 28.6 % (32.4-45.2); HEMOGLOBIN 9.9 G/dL (10.7-15.3); MCHC 34.8 g/dl (32.0-36.0); MEAN CELL VOLUME 95.1 fl (80-96); MEAN PLT VOLUME 10.7 fl (7.5-11.1); PLATELET COUNT 126.1 10^3/uL (134-434); RBC 3.01 10^6/uL (3.60-5.2); RDW 14.7 % (11.6-15.6); WHITE BLOOD COUNT 7.5 10^3/uL (4.0-10.8)
[2022-02-25 08:52] LABS: CALCIUM 8.6 mg/dl (8.5-10)
[2022-02-25 09:04] LABS: CREATININE 0.8 mg/dl (0.55-1.3)
[2022-02-25] MEDS: FOLIC ACID 1 MG TABLET (FP) PO SCH (09:15)
[2022-02-25] MEDS: PANTOPRAZOLE 40 MG TABLET PO SCH (09:15)
[2022-02-25] MEDS: ASPIRIN 325 MG TABLET PO SCH (09:15)
[2022-02-25] MEDS: amLODIPine BESYLATE 10 MG TABLET (FP) PO SCH (09:15)
[2022-02-25] MEDS: LOSARTAN POTASSIUM 50 MG TABLET PO SCH (09:15)
[2022-02-25] MEDS: oxyCODONE HCL 10 MG SUSTAINED ACTING TABLET PO SCH ×2 (09:16→21:34)
[2022-02-25 13:00] LABS: ANISOCYTOSIS FEW
[2022-02-25 13:01] LABS: PLATELET ESTIMATE SLT DECREASE
[2022-02-25] MEDS: QUEtiapine FUMARATE 200 MG TABLET PO SCH (21:36)
[~2022-02-25 21:48] MED LIST: BUPIVACAINE HCL/PF 0.5% (5MG/ML) 10 ML VIAL ONE; BUPIVACAINE LIPOSOME/PF (EXPAREL) 266 MG/20 ML VIAL ONE; CEFAZOLIN 2 GM in SODIUM CHLORIDE 100 ML IVPB ONE; DEXTROSE 5%-WATER - 50 ML IVPB ONE; HYDROmorphone HCL/PF 1 MG/ML VIAL ONE; LABETALOL HCL 5 MG/1 ML (100MG/20 ML VIAL) IVPUSH ONE; LABETALOL HCL 5 MG/1 ML (100MG/20 ML VIAL) ONE; LACTATED RINGERS SOLUTION 1,000 ML IV SCH; MIDAZOLAM HCL 2 MG/2 ML SINGLE DOSE VIAL ONE; ONDANSETRON 4 MG/2 ML VIAL IVPUSH PRN; ONDANSETRON 4 MG/2 ML VIAL ONE; POLYETHYLENE GLYCOL (HEALTHYLAX) 3350 17 GM PACKET PO PRN; QUEtiapine FUMARATE 100 MG TABLET (FP) PO SCH; ROCURONIUM BROMIDE 50 MG/5 ML SYRINGE ONE; SEVOFLURANE 250 ML BTL ONE; TRANEXAMIC ACID 1000 MG/10 ML VIAL IVPUSH ONE; TRANEXAMIC ACID 1000 MG/10 ML VIAL ONE; VANCOMYCIN 1 GM in D5W (PRE-DOCKED) 1,000 MG/250 ML IVPB SCH; VANCOMYCIN 1,000 MG VIAL (RESTRICTED TO ID ONLY) ONE; ceFAZolin SODIUM 1 GM VIAL ONE
[2022-02-26] MEDS: DOCUSATE SODIUM 100 MG CAPSULE (FP) PO SCH ×3 (06:37→21:18)
[2022-02-26] MEDS: cloNIDine HCL 0.1 MG TABLET PO SCH ×3 (06:38→21:17)
[2022-02-26] MEDS: GABAPENTIN 400 MG CAPSULE PO SCH ×3 (06:38→21:18)
[2022-02-26] MEDS: PHENYTOIN NA EXTENDED 100 MG CAPSULE (FP) PO SCH ×3 (06:40→21:20)
[2022-02-26] MEDS: LOSARTAN POTASSIUM 50 MG TABLET PO SCH (09:36)
[2022-02-26] MEDS: FOLIC ACID 1 MG TABLET (FP) PO SCH (09:36)
[2022-02-26] MEDS: PANTOPRAZOLE 40 MG TABLET PO SCH (09:37)
[2022-02-26] MEDS: oxyCODONE HCL 10 MG SUSTAINED ACTING TABLET PO SCH ×2 (09:37→21:19)
[2022-02-26] MEDS: ASPIRIN 325 MG TABLET PO SCH (09:37)
[2022-02-26] MEDS: amLODIPine BESYLATE 10 MG TABLET (FP) PO SCH (09:37)
[2022-02-26] MEDS: ACETAMINOPHEN 325 MG TABLET (FP) PO SCH ×2 (11:47→16:50)
[2022-02-26] MEDS: oxyCODONE HCL 5 MG TABLET PO PRN ×2 (11:51→16:49)
[2022-02-26 11:54] LABS: MCH 32.8 pg (25.7-33.7); MCHC 34.5 g/dl (32.0-36.0); MEAN CELL VOLUME 95.2 fl (80-96); MEAN PLT VOLUME 10.1 fl (7.5-11.1); PLATELET COUNT 131.3 10^3/uL (134-434); RBC 3.05 10^6/uL (3.60-5.2); WHITE BLOOD COUNT 9.7 10^3/uL (4.0-10.8)
[2022-02-26 12:03] LABS: CALCIUM 8.8 mg/dl (8.5-10); CREATININE 0.6 mg/dl (0.55-1.3)
[2022-02-26] MEDS ORDERED: POTASSIUM CHLORIDE ORAL LIQUID 20 MEQ/15 ML PO ONE (14:59)
[2022-02-26] MEDS: QUEtiapine FUMARATE 200 MG TABLET PO SCH (21:18)
[2022-02-27] MEDS: oxyCODONE HCL 5 MG TABLET PO PRN (06:24)
[2022-02-27] MEDS: cloNIDine HCL 0.1 MG TABLET PO SCH (06:25)
[2022-02-27] MEDS: DOCUSATE SODIUM 100 MG CAPSULE (FP) PO SCH (06:26)
[2022-02-27] MEDS: GABAPENTIN 400 MG CAPSULE PO SCH (06:27)
[2022-02-27] MEDS ORDERED: HYDROmorphone HCL/PF 1 MG/ML VIAL IVPUSH PRN (07:39)
[2022-02-27] MEDS: amLODIPine BESYLATE 10 MG TABLET (FP) PO SCH (09:45)
[2022-02-27] MEDS: FOLIC ACID 1 MG TABLET (FP) PO SCH (09:45)
[2022-02-27] MEDS: ASPIRIN 325 MG TABLET PO SCH (09:46)
[2022-02-27] MEDS: LOSARTAN POTASSIUM 50 MG TABLET PO SCH (09:46)
[2022-02-27] MEDS: PANTOPRAZOLE 40 MG TABLET PO SCH (09:46)
[2022-02-27] MEDS: ACETAMINOPHEN 325 MG TABLET (FP) PO SCH ×3 (09:47→09:49)
[2022-02-27] MEDS: PHENYTOIN NA EXTENDED 100 MG CAPSULE (FP) PO SCH ×2 (09:47→09:53)
[2022-02-27] MEDS: oxyCODONE HCL 10 MG SUSTAINED ACTING TABLET PO SCH (09:47)
[2022-02-27 10:44] VITALS: BP 119/74; PULSE 106; TEMP 98.9
== END 2022-02-27 12:13 | disposition home or self-care (01) ==
LOC: SUATTDRO 21:48 → FM/S 21:48 → FASUSAT 21:48 → FM/S 02-26 06:16 → UNDOADMIN 02-26 06:16 → FASUSAT 02-27 12:13
PROVIDERS: ATTEND Nurse Practitioner Acute Care
PROC: 0RRJ0JZ Replacement of Right Shoulder Joint with Synthetic Substitute, Open Approach (ICD-10-PCS; principal; 2022-02-25)
PROC: 0LS30ZZ Reposition Right Upper Arm Tendon, Open Approach (ICD-10-PCS; 2022-02-25)
DX: M19.011 Primary osteoarthritis, right shoulder (principal); M75.121 Complete rotator cuff tear or rupture of right shoulder, not specified as traumatic; M75.21 Bicipital tendinitis, right shoulder
CPT/HCPCS: 36415; 73030-TC-RT-FY; 80048; 85025; 85027; 94760; 97116-GP; 97162-GP; J0735

== ENCOUNTER 2022-08-19 09:14 | Emergency (ER) | payer OTHER ==
[2022-08-19 09:30] VITALS: BP 110/74; PULSE 90; RESP 16; TEMP 98.6; BMI 25.4
[2022-08-19] MEDS ORDERED: DEXAMETHASONE LIQUID 0.5 MG/5 ML PO ONE (09:45)
[2022-08-19] MEDS ORDERED: DEXAMETHASONE SOD PHOSPHATE 10 MG/1 ML VIAL ONE (09:51)
== END 2022-08-19 09:59 | disposition home or self-care (01) ==
LOC: JER 09:14
DX: L25.9 Unspecified contact dermatitis, unspecified cause (principal)
CPT/HCPCS: 99283-25

== ENCOUNTER 2022-09-15 07:06 | Day surgery (SDC) | payer OTHER ==
[2022-09-11 15:15] VITALS: BMI 24.5
[2022-09-15] MEDS ORDERED: PROPOFOL 60 ML ONE (08:19)
[2022-09-15] MEDS ORDERED: BUPIVACAINE HCL/EPINEPHRINE/PF 30 ML VIAL IJ ONE (09:46)
[2022-09-15] MEDS ORDERED: MIDAZOLAM HCL 2 MG/2 ML SINGLE DOSE VIAL ONE (10:36)
[2022-09-15] MEDS ORDERED: ceFAZolin SODIUM 1 GM VIAL ONE ×2 (10:46)
[2022-09-15] MEDS ORDERED: ePHEDrine SULFATE 50 MG/1 ML AMPULE ONE (10:56)
[2022-09-15] MEDS ORDERED: ONDANSETRON 4 MG/2 ML VIAL ONE (10:59)
[2022-09-15] MEDS ORDERED: DEXAMETHASONE SOD PHOSPHATE 4 MG/1 ML VIAL ONE (10:59)
[2022-09-15] MEDS ORDERED: hydrALAZINE HCL 20 MG/ML VIAL ONE (11:12)
[2022-09-15] MEDS ORDERED: ESMOLOL HCL 100,000 MCG/10 ML VIAL ONE (11:22)
[2022-09-15] MEDS ORDERED: ONDANSETRON 4 MG/2 ML VIAL IVPUSH PRN (11:48)
[2022-09-15] MEDS ORDERED: PANTOPRAZOLE 40 MG TABLET PO PRN (11:48)
[2022-09-15] MEDS ORDERED: ZOLPIDEM TARTRATE 5 MG TABLET PO PRN (11:48)
[2022-09-15] MEDS ORDERED: DOCUSATE SODIUM 100 MG CAPSULE (FP) PO PRN (11:48)
[2022-09-15] MEDS ORDERED: ACETAMINOPHEN 1000 MG/100 ML BAG IVPB ONE (11:56)
[2022-09-15] MEDS ORDERED: LACTATED RINGERS SOLUTION 1,000 ML IV SCH ×2 (12:00)
[2022-09-15] MEDS ORDERED: FENTANYL CITRATE/PF 50 MCG/ML VIAL ONE ×4 (12:11→13:33)
[2022-09-15] MEDS ORDERED: oxyCODONE HCL 5 MG TABLET ONE (13:33)
[2022-09-15] MEDS: oxyCODONE HCL 5 MG TABLET PO PRN ×2 (13:45→18:29)
[2022-09-15] MEDS: PHENYTOIN NA EXTENDED 100 MG CAPSULE (FP) PO SCH ×2 (16:42→21:28)
[2022-09-15] MEDS: cloNIDine HCL 0.1 MG TABLET PO SCH ×2 (16:42→21:28)
[2022-09-15] MEDS: GABAPENTIN 400 MG CAPSULE PO SCH ×2 (16:43→21:29)
[2022-09-15] MEDS: ACETAMINOPHEN 500 MG TABLET (FP) PO PRN (19:44)
[2022-09-15] MEDS ORDERED: QUEtiapine FUMARATE 100 MG TABLET (FP) PO SCH (22:00)
[2022-09-16] MEDS: oxyCODONE HCL 5 MG TABLET PO PRN ×2 (01:59→10:04)
[2022-09-16] MEDS: ACETAMINOPHEN 500 MG TABLET (FP) PO PRN ×2 (02:00→10:05)
[2022-09-16] MEDS: GABAPENTIN 400 MG CAPSULE PO SCH ×2 (06:30→14:20)
[2022-09-16] MEDS: PHENYTOIN NA EXTENDED 100 MG CAPSULE (FP) PO SCH ×2 (06:30→14:20)
[2022-09-16] MEDS: cloNIDine HCL 0.1 MG TABLET PO SCH ×2 (06:31→14:20)
[2022-09-16 09:13] VITALS: RESP 18
[2022-09-16] MEDS ORDERED: amLODIPine BESYLATE 10 MG TABLET (FP) PO SCH (10:00)
[2022-09-16] MEDS ORDERED: FOLIC ACID 1 MG TABLET (FP) PO SCH (10:00)
[2022-09-16] MEDS ORDERED: LOSARTAN POTASSIUM 50 MG TABLET PO SCH (10:00)
[2022-09-16] MEDS ORDERED: ASPIRIN 325 MG TABLET PO SCH (10:00)
[2022-09-16 13:51] VITALS: BP 128/81; PULSE 104; TEMP 98.9
== END 2022-09-16 17:16 | disposition home or self-care (01) ==
LOC: FASUSAT 07:06 → FASU 07:06 → FM/S 12:11 → FASUSAT 09-16 17:16
PROVIDERS: ATTEND Orthopaedic Surgery
PROC: 01N40ZZ Release Ulnar Nerve, Open Approach (ICD-10-PCS; principal; 2022-09-15 11:02)
DX: G56.21 Lesion of ulnar nerve, right upper limb (principal)
CPT/HCPCS: 94760

== ENCOUNTER 2023-10-17 06:18 | Observation (INO) | payer OTHER ==
[2023-10-17] MEDS ORDERED: SODIUM CHLORIDE 0.9% 500 ML INFUS.BAG IV ONE (07:37)
[2023-10-17] MEDS ORDERED: ACETAMINOPHEN 1000 MG/100 ML BAG IVPB ONE (07:37)
[2023-10-17] MEDS ORDERED: METOCLOPRAMIDE HCL INJECTION 10 MG/2 ML VIAL IVPUSH ONE (07:37)
[2023-10-17] MEDS ORDERED: METOCLOPRAMIDE HCL INJECTION 10 MG/2 ML VIAL ONE (08:00)
[2023-10-17] MEDS ORDERED: ACETAMINOPHEN INJECTION 100 ML IVPB ONE (08:00)
[2023-10-17 10:33] LABS: EOS % 0.6 % (0-4.5); HEMATOCRIT 40.3 % (32.4-45.2); HEMOGLOBIN 13.6 GM/dL (10.7-15.3); LYMPH % 13.7 % (8-40); MCH 32.1 pg (25.7-33.7); MCHC 33.7 g/dl (32.0-36.0); MEAN CELL VOLUME 95.2 fl (80-96); MONO % 6.4 % (3.8-10.2); NEUT % 78.3 % (42.8-82.8); PLATELET COUNT 176 10^3/uL (134-434); RBC 4.23 M/mm3 (3.60-5.2); RDW 13.7 % (11.6-15.6); WHITE BLOOD COUNT 8.5 K/mm3 (4.0-10.0)
[2023-10-17 10:40] LABS: INR 0.98 (0.83-1.09); PROTHROMBIN TIME (PATIENT) 11.4 SEC (9.7-13.0)
[2023-10-17 10:43] LABS: ACTIVATED PTT 40.5 SECONDS (25.2-36.5)
[2023-10-17 10:56] LABS: POTASSIUM 3.4 mmol/L (3.5-5.1)
[2023-10-17 10:58] LABS: ALBUMIN 4.2 g/dl (3.4-5.0); BLOOD UREA NITROGEN 10.2 mg/dL (7-18); CALCIUM 9.4 mg/dL (8.5-10.1); MAGNESIUM 2.1 mg/dL (1.8-2.4)
[2023-10-17 11:01] LABS: CREATININE 0.8 mg/dL (0.55-1.3)
[2023-10-17 11:03] LABS: BILIRUBIN,TOTAL 0.6 mg/dL (0.2-1); TOT PROT 8.1 g/dl (6.4-8.2)
[2023-10-17] MEDS ORDERED: PROCHLORPERAZINE INJECTION 10 MG/2 ML VIAL IVPB ONE (11:14)
[2023-10-17] MEDS ORDERED: POTASSIUM CHLORIDE ORAL LIQUID 20 MEQ/15 ML PO ONE (11:14)
[2023-10-17] MEDS ORDERED: amLODIPine BESYLATE 10 MG TABLET (FP) PO ONE (11:20)
[2023-10-17] MEDS ORDERED: amLODIPine BESYLATE 10 MG TABLET (FP) ONE (11:43)
[2023-10-17] MEDS ORDERED: POTASSIUM CHLORIDE ORAL LIQUID 20 MEQ/15 ML ONE (11:43)
[2023-10-17] MEDS ORDERED: PROCHLORPERAZINE INJECTION 10 MG/2 ML VIAL ONE (11:43)
[2023-10-17] MEDS ORDERED: cloNIDine HCL 0.1 MG TABLET PO ONE (12:58)
[2023-10-17] MEDS ORDERED: cloNIDine HCL 0.1 MG TABLET ONE (14:45)
[2023-10-17] MEDS ORDERED: ASPIRIN 81 MG CHEWABLE TABLETS PO ONE (15:53)
[2023-10-17] MEDS ORDERED: ASPIRIN 81 MG CHEWABLE TABLETS ONE (16:21)
[2023-10-17] MEDS: hydrALAZINE HCL 25 MG TABLET (FP) PO SCH (21:06)
[2023-10-17] MEDS: PHENYTOIN NA EXTENDED 100 MG CAPSULE (FP) PO SCH (21:06)
[2023-10-17] MEDS: cloNIDine HCL 0.1 MG TABLET PO SCH (21:06)
[2023-10-17] MEDS: ACETAMINOPHEN 1000 MG/100 ML BAG IVPB PRN (21:06)
[2023-10-17] MEDS: PRAMIPEXOLE DIHYDROCHLORIDE 0.25 MG TABLET PO SCH (23:05)
[2023-10-17] MEDS: DIVALPROEX NA *ER* EXTEND REL 250 MG TABLET.SA PO SCH (23:05)
[2023-10-18] MEDS ORDERED: ONDANSETRON 4 MG/2 ML VIAL IVPUSH ONE (03:57)
[2023-10-18] MEDS: hydrALAZINE HCL 25 MG TABLET (FP) PO SCH (05:31)
[2023-10-18] MEDS: PHENYTOIN NA EXTENDED 100 MG CAPSULE (FP) PO SCH ×3 (05:32→22:46)
[2023-10-18] MEDS: cloNIDine HCL 0.1 MG TABLET PO SCH ×3 (05:33→22:46)
[2023-10-18] MEDS: PRAMIPEXOLE DIHYDROCHLORIDE 0.25 MG TABLET PO SCH ×3 (05:44→22:46)
[2023-10-18] MEDS ORDERED: hydrALAZINE HCL 25 MG TABLET (FP) PO SCH ×2 (07:04→22:30)
[2023-10-18 07:05] LABS: BASO % 0.6 % (0-2.0); EOS % 0.7 % (0-4.5); HEMATOCRIT 40.8 % (32.4-45.2); HEMOGLOBIN 13.8 GM/dL (10.7-15.3); LYMPH % 25.2 % (8-40); MCH 31.5 pg (25.7-33.7); MCHC 33.7 g/dl (32.0-36.0); MEAN CELL VOLUME 93.6 fl (80-96); MEAN PLT VOLUME 10.8 fl (7.5-11.1); MONO % 6.9 % (3.8-10.2); NEUT % 66.6 % (42.8-82.8); PLATELET COUNT 195 10^3/uL (134-434); RBC 4.36 M/mm3 (3.60-5.2); RDW 13.7 % (11.6-15.6)
[2023-10-18 07:28] LABS: POTASSIUM 3.4 mmol/L (3.5-5.1)
[2023-10-18 07:37] LABS: CALCIUM 9.9 mg/dL (8.5-10.1)
[2023-10-18 07:38] LABS: BLOOD UREA NITROGEN 10.5 mg/dL (7-18)
[2023-10-18 07:39] LABS: CREATININE 0.9 mg/dL (0.55-1.3)
[2023-10-18 07:40] LABS: ALBUMIN 4.2 g/dl (3.4-5.0)
[2023-10-18 07:41] LABS: BILIRUBIN,TOTAL 0.7 mg/dL (0.2-1); TOT PROT 8.1 g/dl (6.4-8.2)
[2023-10-18] MEDS ORDERED: POTASSIUM CHLORIDE ORAL LIQUID 20 MEQ/15 ML PO ONE (07:59)
[2023-10-18] MEDS: ACETAMINOPHEN 1000 MG/100 ML BAG IVPB PRN ×2 (08:15→15:57)
[2023-10-18 08:46] LABS: URINE APPEARANCE CLEAR; URINE BILIRUBIN NEGATIVE (NEGATIVE); URINE COLOR YELLOW; URINE GLUCOSE (UA) NEGATIVE (NEGATIVE); URINE KETONE NEGATIVE (NEGATIVE); URINE LEUK ESTERASE NEGATIVE (NEGATIVE); URINE NITRITE NEGATIVE (NEGATIVE); URINE PROTEIN NEGATIVE (NEGATIVE); URINE UROBILINOGEN 0.2 mg/dL (0.2-1.0)
[2023-10-18] MEDS ORDERED: amLODIPine BESYLATE 10 MG TABLET (FP) PO SCH (10:00)
[2023-10-18] MEDS: POTASSIUM CHLORIDE TABS 10 MEQ TABLET.ER (FP) PO SCH (10:12)
[2023-10-18] MEDS: DIVALPROEX NA *ER* EXTEND REL 250 MG TABLET.SA PO SCH ×2 (10:12→22:46)
[2023-10-18] MEDS: HYDROCHLOROTHIAZIDE 25 MG TABLET (FP) PO SCH (10:12)
[2023-10-18] MEDS: LOSARTAN POTASSIUM 50 MG TABLET PO SCH (10:12)
[2023-10-18 15:43] VITALS: BMI 25.3
[2023-10-18] MEDS: hydrALAZINE HCL 50 MG TABLET (FP) PO SCH (23:06)
[2023-10-19] MEDS: PHENYTOIN NA EXTENDED 100 MG CAPSULE (FP) PO SCH ×3 (06:24→21:23)
[2023-10-19] MEDS: hydrALAZINE HCL 50 MG TABLET (FP) PO SCH ×3 (06:24→21:23)
[2023-10-19] MEDS: PRAMIPEXOLE DIHYDROCHLORIDE 0.25 MG TABLET PO SCH ×3 (06:24→21:23)
[2023-10-19] MEDS: cloNIDine HCL 0.1 MG TABLET PO SCH ×3 (06:24→21:24)
[2023-10-19 06:54] VITALS: RESP 18
[2023-10-19] MEDS ORDERED: oxyCODONE HCL 5 MG TABLET PO ONE (08:37)
[2023-10-19] MEDS: metoPROLOL SUCCINATE 25 MG TAB.SR.24H (FP) PO SCH ×2 (09:26→21:23)
[2023-10-19] MEDS: POTASSIUM CHLORIDE TABS 10 MEQ TABLET.ER (FP) PO SCH (09:26)
[2023-10-19] MEDS: HYDROCHLOROTHIAZIDE 25 MG TABLET (FP) PO SCH (09:26)
[2023-10-19] MEDS: DIVALPROEX NA *ER* EXTEND REL 250 MG TABLET.SA PO SCH ×2 (09:27→21:23)
[2023-10-19] MEDS: LOSARTAN POTASSIUM 50 MG TABLET PO SCH (09:27)
[2023-10-19] MEDS ORDERED: ONDANSETRON *ODT* 4 MG TABLET SL PRN (14:54)
[2023-10-19] MEDS: oxyCODONE HCL 5 MG TABLET PO PRN (17:11)
[2023-10-19] MEDS ORDERED: QUEtiapine FUMARATE 100 MG TABLET (FP) PO SCH (22:00)
[2023-10-20] MEDS: PRAMIPEXOLE DIHYDROCHLORIDE 0.25 MG TABLET PO SCH (06:18)
[2023-10-20] MEDS: cloNIDine HCL 0.1 MG TABLET PO SCH (06:18)
[2023-10-20] MEDS: PHENYTOIN NA EXTENDED 100 MG CAPSULE (FP) PO SCH (06:19)
[2023-10-20] MEDS: hydrALAZINE HCL 50 MG TABLET (FP) PO SCH (06:19)
[2023-10-20] MEDS: oxyCODONE HCL 5 MG TABLET PO PRN (06:25)
[2023-10-20] MEDS: DIVALPROEX NA *ER* EXTEND REL 250 MG TABLET.SA PO SCH (09:41)
[2023-10-20] MEDS: POTASSIUM CHLORIDE TABS 10 MEQ TABLET.ER (FP) PO SCH (09:41)
[2023-10-20] MEDS: metoPROLOL SUCCINATE 25 MG TAB.SR.24H (FP) PO SCH (09:41)
[2023-10-20] MEDS: HYDROCHLOROTHIAZIDE 25 MG TABLET (FP) PO SCH (09:41)
[2023-10-20] MEDS: LOSARTAN POTASSIUM 50 MG TABLET PO SCH (09:41)
[2023-10-20 09:48] VITALS: BP 110/70; PULSE 103; TEMP 98.3
== END 2023-10-20 13:31 | disposition home or self-care (01) ==
LOC: JER 06:18 → INTOOBSV 13:46 → UNDOADMOB 13:46 → JERBED 13:46 → J4W 16:35 → JERBED 10-18 10:35 → J4W 10-18 10:35
PROVIDERS: ADMIT Internal Medicine; ATTEND Internal Medicine
PROC: 3E033NZ Introduction of Analgesics, Hypnotics, Sedatives into Peripheral Vein, Percutaneous Approach (ICD-10-PCS; principal; 2023-10-18)
PROC: 3E033GC Introduction of Other Therapeutic Substance into Peripheral Vein, Percutaneous Approach (ICD-10-PCS; 2023-10-18)
PROC: 3E033GC Introduction of Other Therapeutic Substance into Peripheral Vein, Percutaneous Approach (ICD-10-PCS; 2023-10-18)
PROC: 3E0337Z Introduction of Electrolytic and Water Balance Substance into Peripheral Vein, Percutaneous Approach (ICD-10-PCS; 2023-10-18)
DX: R07.9 Chest pain, unspecified (principal); R51.9 Headache, unspecified; I11.0 Hypertensive heart disease with heart failure; R77.8 Other specified abnormalities of plasma proteins; I25.10 Atherosclerotic heart disease of native coronary artery without angina pectoris; J45.909 Unspecified asthma, uncomplicated; E78.5 Hyperlipidemia, unspecified; G89.29 Other chronic pain; M54.50 Low back pain, unspecified; K27.9 Peptic ulcer, site unspecified, unspecified as acute or chronic, without hemorrhage or perforation; K59.00 Constipation, unspecified; Z90.49 Acquired absence of other specified parts of digestive tract; Z96.653 Presence of artificial knee joint, bilateral; G62.9 Polyneuropathy, unspecified; M19.90 Unspecified osteoarthritis, unspecified site; G40.909 Epilepsy, unspecified, not intractable, without status epilepticus; R01.1 Cardiac murmur, unspecified
CPT/HCPCS: 36415; 70450-TC; 71045-TC-FY; 71275-TC; 80053; 80061; 81003; 82088; 82728; 83036; 83540; 83550; 83735; 84244; 84439; 84443; 84484; 85025; 85379; 85610; 85730; 86038; 86431; 87086; 93005; 93010; 93306-TC; 96374; 96375; 96376; 99285-25; G0378; Q0162

== ENCOUNTER 2023-10-21 19:26 | Observation (INO) | payer OTHER ==
[2023-10-21] MEDS ORDERED: ONDANSETRON 4 MG/2 ML VIAL IVPUSH ONE (20:00)
[2023-10-21] MEDS ORDERED: LACTATED RINGERS SOLUTION 1000 ML INFUS.BAG IV ONE (20:00)
[2023-10-21] MEDS ORDERED: FAMOTIDINE 20 MG/50 ML IVPB 20 MG/50 ML MG IVPB ONE ×2 (20:00→20:35)
[2023-10-21] MEDS ORDERED: ACETAMINOPHEN 1000 MG/100 ML BAG IVPB ONE (20:01)
[2023-10-21] MEDS ORDERED: ONDANSETRON 4 MG/2 ML VIAL ONE (20:35)
[2023-10-21] MEDS ORDERED: ACETAMINOPHEN INJECTION 100 ML IVPB ONE (20:35)
[2023-10-21 20:39] LABS: BASO % 0.6 % (0-2.0); HEMATOCRIT 38.5 % (32.4-45.2); HEMOGLOBIN 12.8 GM/dL (10.7-15.3); LYMPH % 5.7 % (8-40); MCH 31.1 pg (25.7-33.7); MCHC 33.3 g/dl (32.0-36.0); MEAN CELL VOLUME 93.5 fl (80-96); MONO % 3.6 % (3.8-10.2); NEUT % 90.1 % (42.8-82.8); PLATELET COUNT 190 10^3/uL (134-434); RBC 4.12 M/mm3 (3.60-5.2); RDW 13.6 % (11.6-15.6); WHITE BLOOD COUNT 10.5 K/mm3 (4.0-10.0)
[2023-10-21 20:57] LABS: POTASSIUM 3.2 mmol/L (3.5-5.1)
[2023-10-21 21:00] LABS: ALBUMIN 4.5 g/dl (3.4-5.0); BLOOD UREA NITROGEN 34.2 mg/dL (7-18); CALCIUM 10.3 mg/dL (8.5-10.1)
[2023-10-21 21:05] LABS: BILIRUBIN,TOTAL 0.4 mg/dL (0.2-1); TOT PROT 8.2 g/dl (6.4-8.2)
[2023-10-21 21:29] LABS: INR 1.01 (0.83-1.09); PROTHROMBIN TIME (PATIENT) 11.7 SEC (9.7-13.0)
[2023-10-21] MEDS ORDERED: PANTOPRAZOLE SODIUM 40 MG VIAL IVPUSH ONE (21:57)
[2023-10-21] MEDS ORDERED: POTASSIUM CHLORIDE ORAL LIQUID 20 MEQ/15 ML PO ONE (21:57)
[2023-10-21] MEDS ORDERED: MAG HYDROX/AL HYDROX/SIMETH -MYLANTA- ORAL SUSPENSION PO ONE (21:58)
[2023-10-21] MEDS ORDERED: SUCRALFATE 1 GM/10 ML UNIT DOSE CUPS PO ONE (21:58)
[2023-10-21] MEDS ORDERED: hydrALAZINE HCL 20 MG/ML VIAL IVPUSH ONE (22:00)
[2023-10-21] MEDS ORDERED: hydrALAZINE HCL 20 MG/ML VIAL ONE (22:14)
[2023-10-21] MEDS ORDERED: SUCRALFATE 1 GM TABLET (FP) ONE (22:14)
[2023-10-21] MEDS ORDERED: MAG HYDROX/AL HYDROX/SIMETH 30 ML UNIT-DOSE CUP ONE ×2 (22:15→22:17)
[2023-10-21] MEDS ORDERED: POTASSIUM CHLORIDE ORAL LIQUID 20 MEQ/15 ML ONE (22:15)
[2023-10-21] MEDS ORDERED: PANTOPRAZOLE SODIUM 40 MG VIAL ONE (22:16)
[2023-10-21] MEDS ORDERED: METOCLOPRAMIDE HCL INJECTION 10 MG/2 ML VIAL IVPUSH ONE (23:49)
[2023-10-22] MEDS ORDERED: METOCLOPRAMIDE HCL INJECTION 10 MG/2 ML VIAL ONE (00:49)
[2023-10-22] MEDS ORDERED: morphine CARPU-JECT 4 MG/1 ML DISP.SYRIN IVPUSH ONE (02:51)
[2023-10-22] MEDS ORDERED: morphine SULFATE 4 MG/ML VIAL ONE (03:12)
[2023-10-22] MEDS ORDERED: DOCUSATE SODIUM 100 MG CAPSULE (FP) PO PRN (04:15)
[2023-10-22] MEDS ORDERED: MELATONIN 5 MG TABLETS PO PRN (04:23)
[2023-10-22] MEDS ORDERED: traMADol HCL 50 MG TABLET PO ONE (05:51)
[2023-10-22] MEDS ORDERED: PRAMIPEXOLE DIHYDROCHLORIDE 0.25 MG TABLET PO ONE (05:52)
[2023-10-22] MEDS ORDERED: ZOLPIDEM TARTRATE 5 MG TABLET PO PRN (05:54)
[2023-10-22] MEDS ORDERED: cloNIDine HCL 0.1 MG TABLET ONE (06:14)
[2023-10-22] MEDS ORDERED: hydrALAZINE HCL 50 MG TABLET (FP) ONE (06:15)
[2023-10-22] MEDS ORDERED: MAG HYDROX/AL HYDROX/SIMETH 30 ML UNIT-DOSE CUP PO PRN (06:24)
[2023-10-22] MEDS: D5-1/2NS+20 MEQ KCL - 20 MEQ/1,000 ML INFUS.BAG IV SCH ×2 (06:36→19:41)
[2023-10-22] MEDS: hydrALAZINE HCL 50 MG TABLET (FP) PO SCH ×3 (06:36→22:51)
[2023-10-22] MEDS: cloNIDine HCL 0.1 MG TABLET PO SCH ×3 (06:37→22:56)
[2023-10-22] MEDS: PHENYTOIN NA EXTENDED 100 MG CAPSULE (FP) PO SCH ×3 (06:37→22:56)
[2023-10-22] MEDS: PRAMIPEXOLE DIHYDROCHLORIDE 0.25 MG TABLET PO SCH ×3 (06:38→22:56)
[2023-10-22] MEDS ORDERED: METOCLOPRAMIDE HCL INJECTION 10 MG/2 ML VIAL IVPUSH PRN (07:00)
[2023-10-22 08:22] LABS: BASO % 0.3 % (0-2.0); HEMATOCRIT 36.2 % (32.4-45.2); HEMOGLOBIN 12.4 GM/dL (10.7-15.3); LYMPH % 10.8 % (8-40); MCH 32.1 pg (25.7-33.7); MCHC 34.3 g/dl (32.0-36.0); MEAN CELL VOLUME 93.4 fl (80-96); MEAN PLT VOLUME 10.8 fl (7.5-11.1); MONO % 7.7 % (3.8-10.2); NEUT % 81.2 % (42.8-82.8); PLATELET COUNT 168 10^3/uL (134-434); RBC 3.88 M/mm3 (3.60-5.2); RDW 13.3 % (11.6-15.6); WHITE BLOOD COUNT 9.7 K/mm3 (4.0-10.0)
[2023-10-22] MEDS: ACETAMINOPHEN 1000 MG/100 ML BAG IVPB PRN ×3 (08:36→23:44)
[2023-10-22] MEDS ORDERED: ACETAMINOPHEN INJECTION 100 ML IVPB ONE (08:37)
[2023-10-22] MEDS ORDERED: METOPROLOL TARTRATE 25 MG TABLET (FP) ONE (09:48)
[2023-10-22] MEDS ORDERED: HYDROCHLOROTHIAZIDE 25 MG TABLET (FP) ONE (09:48)
[2023-10-22] MEDS ORDERED: FOLIC ACID 1 MG TABLET (FP) ONE (09:49)
[2023-10-22] MEDS ORDERED: DIVALPROEX NA *ER* EXTEND REL 250 MG TABLET.SA ONE (09:49)
[2023-10-22] MEDS ORDERED: PATIENT'S OWN MEDICATION (NON-FORMULARY) (Losartan Potassium [Cozaar] 100 MG Tablet) PO SCH (10:00)
[2023-10-22] MEDS: metoPROLOL SUCCINATE 25 MG TAB.SR.24H (FP) PO SCH ×2 (10:01→22:56)
[2023-10-22] MEDS: HYDROCHLOROTHIAZIDE 25 MG TABLET (FP) PO SCH (10:01)
[2023-10-22] MEDS: DIVALPROEX NA *ER* EXTEND REL 250 MG TABLET.SA PO SCH ×2 (10:01→22:56)
[2023-10-22] MEDS: FOLIC ACID 1 MG TABLET (FP) PO SCH (10:01)
[2023-10-22] MEDS: LOSARTAN POTASSIUM 50 MG TABLET PO SCH (10:01)
[2023-10-22 11:49] LABS: URINE APPEARANCE CLEAR; URINE BILIRUBIN NEGATIVE (NEGATIVE); URINE COLOR YELLOW; URINE GLUCOSE (UA) NEGATIVE (NEGATIVE); URINE KETONE NEGATIVE (NEGATIVE); URINE LEUK ESTERASE NEGATIVE (NEGATIVE); URINE NITRITE NEGATIVE (NEGATIVE); URINE PROTEIN NEGATIVE (NEGATIVE); URINE UROBILINOGEN 0.2 mg/dL (0.2-1.0)
[2023-10-22] MEDS: ONDANSETRON 4 MG/2 ML VIAL IVPUSH PRN (17:04)
[2023-10-22] MEDS: PANTOPRAZOLE 40 MG TABLET PO PRN (17:04)
[2023-10-22] MEDS: QUEtiapine FUMARATE 200 MG TABLET PO SCH (22:56)
[2023-10-23] MEDS: D5-1/2NS+20 MEQ KCL - 20 MEQ/1,000 ML INFUS.BAG IV SCH ×2 (05:54→23:06)
[2023-10-23] MEDS: cloNIDine HCL 0.1 MG TABLET PO SCH ×3 (06:18→21:09)
[2023-10-23] MEDS: hydrALAZINE HCL 50 MG TABLET (FP) PO SCH ×3 (06:18→21:08)
[2023-10-23] MEDS: PRAMIPEXOLE DIHYDROCHLORIDE 0.25 MG TABLET PO SCH ×3 (06:20→21:15)
[2023-10-23] MEDS: PHENYTOIN NA EXTENDED 100 MG CAPSULE (FP) PO SCH ×3 (06:20→21:15)
[2023-10-23 08:56] LABS: POTASSIUM 3.8 mmol/L (3.5-5.1)
[2023-10-23 08:57] LABS: CALCIUM 9.4 mg/dL (8.5-10.1)
[2023-10-23 08:58] LABS: BLOOD UREA NITROGEN 18.2 mg/dL (7-18)
[2023-10-23 09:01] LABS: CREATININE 0.9 mg/dL (0.55-1.3); PHOSPHOROUS 3.1 mg/dL (2.5-4.9)
[2023-10-23] MEDS: LOSARTAN POTASSIUM 50 MG TABLET PO SCH (09:55)
[2023-10-23] MEDS: DIVALPROEX NA *ER* EXTEND REL 250 MG TABLET.SA PO SCH ×2 (09:55→21:15)
[2023-10-23] MEDS: HYDROCHLOROTHIAZIDE 25 MG TABLET (FP) PO SCH (09:55)
[2023-10-23] MEDS: metoPROLOL SUCCINATE 25 MG TAB.SR.24H (FP) PO SCH ×2 (09:55→21:09)
[2023-10-23] MEDS: FOLIC ACID 1 MG TABLET (FP) PO SCH (09:55)
[2023-10-23] MEDS: ONDANSETRON 4 MG/2 ML VIAL IVPUSH PRN (11:07)
[2023-10-23] MEDS: ACETAMINOPHEN 325 MG TABLET (FP) PO PRN ×2 (12:25→21:14)
[2023-10-23] MEDS: PANTOPRAZOLE 40 MG TABLET PO PRN (12:26)
[2023-10-23] MEDS ORDERED: morphine SULFATE 4 MG/ML VIAL IVPUSH ONE (13:11)
[2023-10-23] MEDS ORDERED: ALPRAZolam 1 MG TABLET PO PRN (13:13)
[2023-10-23] MEDS: BANATROL PLUS POWDER PACKET PO SCH ×2 (13:52→21:15)
[2023-10-23 16:06] VITALS: BMI 23.0
[2023-10-23] MEDS: QUEtiapine FUMARATE 200 MG TABLET PO SCH (21:15)
[2023-10-23] MEDS ORDERED: SODIUM CHLORIDE 250 ML IV STA (23:23)
[2023-10-24 02:45] VITALS: RESP 18
[2023-10-24] MEDS ORDERED: ACETAMINOPHEN 1000 MG/100 ML BAG IVPB PRN (03:00)
[2023-10-24] MEDS: D5-1/2NS+20 MEQ KCL - 20 MEQ/1,000 ML INFUS.BAG IV SCH (05:05)
[2023-10-24] MEDS: hydrALAZINE HCL 50 MG TABLET (FP) PO SCH ×2 (06:25→13:26)
[2023-10-24] MEDS: PRAMIPEXOLE DIHYDROCHLORIDE 0.25 MG TABLET PO SCH ×2 (06:28→13:26)
[2023-10-24] MEDS: cloNIDine HCL 0.1 MG TABLET PO SCH ×2 (06:28→13:26)
[2023-10-24] MEDS: PHENYTOIN NA EXTENDED 100 MG CAPSULE (FP) PO SCH ×2 (06:28→13:26)
[2023-10-24] MEDS: BANATROL PLUS POWDER PACKET PO SCH ×2 (06:29→13:26)
[2023-10-24] MEDS: metoPROLOL SUCCINATE 25 MG TAB.SR.24H (FP) PO SCH (09:55)
[2023-10-24] MEDS: HYDROCHLOROTHIAZIDE 25 MG TABLET (FP) PO SCH (09:55)
[2023-10-24] MEDS: LOSARTAN POTASSIUM 50 MG TABLET PO SCH (09:55)
[2023-10-24] MEDS: DIVALPROEX NA *ER* EXTEND REL 250 MG TABLET.SA PO SCH (09:55)
[2023-10-24] MEDS: FOLIC ACID 1 MG TABLET (FP) PO SCH (09:55)
[2023-10-24] MEDS: ONDANSETRON 4 MG/2 ML VIAL IVPUSH PRN (13:26)
[2023-10-24 14:43] VITALS: BP 150/88; PULSE 93; TEMP 98
== END 2023-10-24 18:00 | disposition home or self-care (01) ==
LOC: JER 19:26 → JERBED 10-22 04:12 → J7W 10-22 14:11
PROVIDERS: ADMIT Internal Medicine; ATTEND Family Medicine
PROC: 3E033NZ Introduction of Analgesics, Hypnotics, Sedatives into Peripheral Vein, Percutaneous Approach (ICD-10-PCS; principal; 2023-10-22)
PROC: 3E033GC Introduction of Other Therapeutic Substance into Peripheral Vein, Percutaneous Approach (ICD-10-PCS; 2023-10-22)
PROC: 3E0337Z Introduction of Electrolytic and Water Balance Substance into Peripheral Vein, Percutaneous Approach (ICD-10-PCS; 2023-10-22)
DX: E87.6 Hypokalemia (principal); I10 Essential (primary) hypertension; R11.10 Vomiting, unspecified; E78.5 Hyperlipidemia, unspecified; J45.909 Unspecified asthma, uncomplicated; G40.909 Epilepsy, unspecified, not intractable, without status epilepticus; I48.91 Unspecified atrial fibrillation; K52.9 Noninfective gastroenteritis and colitis, unspecified; R10.84 Generalized abdominal pain; M54.9 Dorsalgia, unspecified
CPT/HCPCS: 0241U-QW; 36415; 71046-TC-FY; 74177-TC; 80048; 80053; 81003; 83690; 83735; 84100; 84484; 85025; 85610; 87086; 87186; 96361; 96365; 96375; 96376; 97116-GP; 97161-GP; 99285-25; G0378; Q9967

== ENCOUNTER → 2023-11-28 | Day surgery (SDC) | payer OTHER ==
[2023-11-28 14:17] LABS: BF WBC & OTHER NUCLEATED CELLS 3150 /mm3
[2023-11-28 15:05] LABS: BODY FLUID MACROPHAGES 34 %; BODYL FLD EOSINOPHIL 2 %
== END | disposition home or self-care (01) ==
LOC: JRADIR 09:06
PROVIDERS: ATTEND Orthopaedic Surgery
PROC: BP28YZZ Computerized Tomography (CT Scan) of Right Shoulder using Other Contrast (ICD-10-PCS; principal; 2023-11-28)
DX: M25.511 Pain in right shoulder (principal)
CPT/HCPCS: 23350; 73040-TC-FY; 87070; 87075; 87205

== ENCOUNTER 2023-12-21 06:37 | Day surgery (SDC) | payer OTHER ==
[2023-12-21 07:05] VITALS: BMI 25.4
[2023-12-21] MEDS ORDERED: BUPIVACAINE HCL/PF 2.5 MG/ML - 30 ML VIAL IJ ONE (07:53)
[2023-12-21] MEDS ORDERED: EPINEPHrine/PF 1 MG/1 ML (1:1,000) AMPULE ONE (07:53)
[2023-12-21] MEDS ORDERED: LIDOCAINE HCL/PF 2% SDV 5ML VIAL ONE (07:59)
[2023-12-21] MEDS ORDERED: MIDAZOLAM HCL 2 MG/2 ML SINGLE DOSE VIAL ONE (07:59)
[2023-12-21] MEDS ORDERED: PROPOFOL 40 ML ONE (08:00)
[2023-12-21] MEDS ORDERED: DEXAMETHASONE SOD PHOSPHATE/PF 10 MG/ML SDV ONE (08:30)
[2023-12-21] MEDS ORDERED: BUPIVACAINE HCL/PF 0.5% (5 MG/ML) 30 ML VIAL IJ ONE (08:30)
[2023-12-21] MEDS ORDERED: VANCOMYCIN 1,000 MG VIAL (RESTRICTED TO ID ONLY) ONE ×2 (10:00→11:37)
[2023-12-21] MEDS ORDERED: ceFAZolin SODIUM 1 GM VIAL ONE (10:00)
[2023-12-21] MEDS ORDERED: GLYCOPYRROLATE 0.2 MG/1 ML VIAL ONE (10:18)
[2023-12-21] MEDS ORDERED: PROPOFOL 20 ML ONE (10:23)
[2023-12-21] MEDS ORDERED: ONDANSETRON 4 MG/2 ML VIAL ONE (10:30)
[2023-12-21] MEDS ORDERED: oxyCODONE HCL 5 MG TABLET PO PRN (12:24)
[2023-12-21] MEDS ORDERED: FENTANYL CITRATE/PF 50 MCG/ML VIAL ONE ×2 (12:39→13:14)
[2023-12-21] MEDS: hydrALAZINE HCL 20 MG/ML VIAL IVPUSH ONE ×2 (12:51→13:10)
[2023-12-21] MEDS ORDERED: hydrALAZINE HCL 20 MG/ML VIAL ONE (12:52)
[2023-12-21] MEDS: ONDANSETRON 4 MG/2 ML VIAL IVPUSH PRN (13:20)
[2023-12-21] MEDS ORDERED: PANTOPRAZOLE 40 MG TABLET PO PRN (13:55)
[2023-12-21] MEDS ORDERED: ZOLPIDEM TARTRATE 5 MG TABLET PO PRN (13:55)
[2023-12-21] MEDS ORDERED: DOCUSATE SODIUM 100 MG CAPSULE (FP) PO PRN (13:55)
[2023-12-21 14:16] VITALS: RESP 18
[2023-12-21] MEDS: GABAPENTIN 400 MG CAPSULE PO SCH (16:26)
[2023-12-21] MEDS: cloNIDine HCL 0.1 MG TABLET PO SCH (16:26)
[2023-12-21] MEDS: CEFAZOLIN 2 GM in DEXTROSE 5%-WATER - 50 ML IVPB ONE (16:37)
[2023-12-21] MEDS: LACTATED RINGERS SOLUTION 1,000 ML IV SCH (16:37)
[2023-12-21] MEDS: hydrALAZINE HCL 50 MG TABLET (FP) PO SCH (16:37)
[2023-12-21] MEDS: PHENYTOIN NA EXTENDED 100 MG CAPSULE (FP) PO SCH (16:39)
[2023-12-21] MEDS: PRAMIPEXOLE DIHYDROCHLORIDE 0.25 MG TABLET PO SCH (16:39)
[2023-12-21] MEDS: ALBUTEROL SO4 HFA INHALER IH SCH (16:40)
[2023-12-21] MEDS: oxyCODONE HCL 5 MG TABLET PO PRN (18:38)
[2023-12-21] MEDS: ACETAMINOPHEN 500 MG TABLET (FP) PO PRN (18:39)
[2023-12-21] MEDS: CEFAZOLIN SODIUM 2 GM in DEXTROSE 5%-WATER 100 ML IVPB SCH (18:39)
[2023-12-21] MEDS: QUEtiapine FUMARATE 100 MG TABLET (FP) PO SCH (21:26)
[2023-12-21] MEDS: metoPROLOL SUCCINATE 25 MG TAB.SR.24H (FP) PO SCH (21:27)
[2023-12-22 09:08] LABS: ALBUMIN 3.5 g/dl (3.4-5.0); BILIRUBIN,TOTAL 0.3 mg/dl (0.2-1); CALCIUM 9.1 mg/dl (8.5-10.1); CREATININE 0.6 mg/dl (0.6-1.3); POTASSIUM 3.7 mmol/L (3.5-5.1); TOT PROT 5.6 g/dl (6.4-8.2)
[2023-12-22] MEDS: FOLIC ACID 1 MG TABLET (FP) PO SCH (09:20)
[2023-12-22] MEDS: LOSARTAN POTASSIUM 50 MG TABLET PO SCH (09:20)
[2023-12-22] MEDS: HYDROCHLOROTHIAZIDE 25 MG TABLET (FP) PO SCH (09:21)
[2023-12-22 10:03] LABS: BASO % 0.7 % (0-2.0); EOS % 0.6 % (0-4.5); HEMATOCRIT 33.1 % (32.4-45.2); HEMOGLOBIN 11.3 GM/dL (10.7-15.3); LYMPH % 24.5 % (8-40); MCH 32.1 pg (25.7-33.7); MCHC 34.1 g/dl (32.0-36.0); MEAN CELL VOLUME 94.2 fl (80-96); MEAN PLT VOLUME 11.4 fl (7.5-11.1); NEUT % 66.2 % (42.8-82.8); PLATELET COUNT 138 10^3/uL (134-434); RBC 3.51 M/mm3 (3.60-5.2); RDW 15.8 % (11.6-15.6); WHITE BLOOD COUNT 8.1 K/mm3 (4.0-10.0)
[2023-12-22 12:00] VITALS: BP 164/74; PULSE 69; TEMP 98.3
== END 2023-12-22 18:51 | disposition home or self-care (01) ==
LOC: FASUSAT 06:37 → FASU 06:37 → SUATTDRO 06:37 → FM/S 14:07 → FASUSAT 12-22 18:51
PROVIDERS: ATTEND Internal Medicine
PROC: 0RNJ0ZZ Release Right Shoulder Joint, Open Approach (ICD-10-PCS; 2023-12-21)
PROC: 0RBJ4ZZ Excision of Right Shoulder Joint, Percutaneous Endoscopic Approach (ICD-10-PCS; principal; 2023-12-21 10:32)
DX: T84.098A Other mechanical complication of other internal joint prosthesis, initial encounter (principal); M75.51 Bursitis of right shoulder; M65.811 Other synovitis and tenosynovitis, right shoulder; S43.431D Superior glenoid labrum lesion of right shoulder, subsequent encounter; M75.01 Adhesive capsulitis of right shoulder; X58.XXXD Exposure to other specified factors, subsequent encounter; Y83.8 Other surgical procedures as the cause of abnormal reaction of the patient, or of later complication, without mention of misadventure at the time of the procedure; Y79.3 Surgical instruments, materials and orthopedic devices (including sutures) associated with adverse incidents
CPT/HCPCS: 36415; 73030-TC-RT-FY; 80053; 80061; 83036; 85025; 87070; 87075; 87205; 93005; 94760

== ENCOUNTER 2024-02-03 11:24 | Observation (INO) | payer OTHER ==
[2024-02-03] MEDS ORDERED: ONDANSETRON 4 MG/2 ML VIAL ONE (11:52)
[2024-02-03] MEDS: FAMOTIDINE 20 MG/50 ML IVPB 20 MG/50 ML MG IVPB ONE (12:05)
[2024-02-03] MEDS: ONDANSETRON 4 MG/2 ML VIAL IVPUSH ONE (12:05)
[2024-02-03] MEDS: morphine CARPU-JECT 2 MG/1 ML DISP.SYRIN IVPUSH ONE ×2 (12:20→13:18)
[2024-02-03] MEDS: SODIUM CHLORIDE 1,000 ML IV STA (12:26)
[2024-02-03 12:28] LABS: HEMATOCRIT 39.5 % (32.4-45.2); HEMOGLOBIN 12.9 GM/dL (10.7-15.3); MCH 31.4 pg (25.7-33.7); MCHC 32.8 g/dl (32.0-36.0); MEAN CELL VOLUME 95.6 fl (80-96); MEAN PLT VOLUME 10.2 fl (7.5-11.1); PLATELET COUNT 185 10^3/uL (134-434); RBC 4.13 M/mm3 (3.60-5.2); RDW 13.9 % (11.6-15.6); WHITE BLOOD COUNT 15.3 K/mm3 (4.0-10.0)
[2024-02-03 12:49] LABS: ANISOCYTOSIS 0; MACROCYTOSIS 0
[2024-02-03] MEDS ORDERED: SUCRALFATE 1 GM TABLET (FP) ONE (12:55)
[2024-02-03] MEDS ORDERED: PANTOPRAZOLE SODIUM 40 MG VIAL ONE (12:56)
[2024-02-03] MEDS: SUCRALFATE 1 GM/10 ML UNIT DOSE CUPS PO ONE (13:02)
[2024-02-03] MEDS: PANTOPRAZOLE SODIUM 40 MG VIAL IVPUSH ONE (13:02)
[2024-02-03 13:07] LABS: POTASSIUM 3.4 mmol/L (3.5-5.1)
[2024-02-03 13:09] LABS: CALCIUM 9.6 mg/dL (8.5-10.1)
[2024-02-03 13:10] LABS: ALBUMIN 4.4 g/dl (3.4-5.0); BLOOD UREA NITROGEN 13.9 mg/dL (7-18); MAGNESIUM 2.1 mg/dL (1.8-2.4)
[2024-02-03 13:13] LABS: CREATININE 0.8 mg/dL (0.55-1.3)
[2024-02-03 13:14] LABS: BILIRUBIN,TOTAL 0.4 mg/dL (0.2-1)
[2024-02-03 13:15] LABS: TOT PROT 7.9 g/dl (6.4-8.2)
[2024-02-03 13:22] LABS: PH,URINE 7.5 (5.0-8.0); URINE APPEARANCE CLEAR; URINE BILIRUBIN NEGATIVE (NEGATIVE); URINE COLOR YELLOW; URINE GLUCOSE (UA) 1+ (NEGATIVE); URINE KETONE NEGATIVE (NEGATIVE); URINE LEUK ESTERASE NEGATIVE (NEGATIVE); URINE NITRITE NEGATIVE (NEGATIVE); URINE PROTEIN TRACE (NEGATIVE); URINE UROBILINOGEN 0.2 mg/dL (0.2-1.0)
[2024-02-03] MEDS ORDERED: HALOPERIDOL LACTATE 5 MG/ML ONE (15:35)
[2024-02-03] MEDS: HALOPERIDOL LACTATE 5 MG/ML IM ONE (15:44)
[2024-02-03] MEDS ORDERED: ONDANSETRON 4 MG/2 ML VIAL IVPUSH PRN ×2 (17:19→23:00)
[2024-02-03] MEDS ORDERED: HALOPERIDOL LACTATE 5 MG/ML IM PRN (17:58)
[2024-02-03] MEDS ORDERED: METOCLOPRAMIDE HCL INJECTION 10 MG/2 ML VIAL ONE (18:47)
[2024-02-03] MEDS: METOCLOPRAMIDE HCL INJECTION 10 MG/2 ML VIAL IVPUSH PRN (18:56)
[2024-02-03] MEDS: D5-NS + 20 MEQ KCL - 20 MEQ/1,000 ML INFUS.BAG IV SCH (19:57)
[2024-02-03] MEDS ORDERED: PANTOPRAZOLE 40 MG TABLET PO PRN (22:46)
[2024-02-04] MEDS ORDERED: cloNIDine HCL 0.1 MG TABLET ONE (05:18)
[2024-02-04] MEDS ORDERED: hydrALAZINE HCL 50 MG TABLET (FP) ONE (05:18)
[2024-02-04] MEDS: hydrALAZINE HCL 50 MG TABLET (FP) PO SCH (05:29)
[2024-02-04] MEDS: cloNIDine HCL 0.1 MG TABLET PO SCH (05:29)
[2024-02-04] MEDS: INSULIN ASPART SLIDING SCALE (NOVOLOG) 1 VIAL SQ SCH (08:08)
[2024-02-04] MEDS: PANTOPRAZOLE SODIUM 40 MG VIAL IVPUSH SCH (09:00)
[2024-02-04] MEDS: HYDROCHLOROTHIAZIDE 25 MG TABLET (FP) PO SCH (10:41)
[2024-02-04] MEDS: metoPROLOL SUCCINATE 25 MG TAB.SR.24H (FP) PO SCH (10:42)
[2024-02-04 16:34] LABS: COCAINE, UR NEGATIVE (NEGATIVE); URINE AMPHETAMINES NEGATIVE (NEGATIVE)
[2024-02-04 16:35] LABS: METHADONE, UR NEGATIVE (NEGATIVE); OPIATES, URI POSITIVE (NEGATIVE); PHENCYCLIDINE,URINE NEGATIVE (NEGATIVE); URINE BARBITURATES NEGATIVE (NEGATIVE); URINE BENZODIAZEPINES NEGATIVE (NEGATIVE)
[2024-02-04] MEDS: QUEtiapine FUMARATE 100 MG TABLET (FP) PO SCH (21:53)
[2024-02-04] MEDS: PHENYTOIN NA EXTENDED 100 MG CAPSULE (FP) PO SCH (21:53)
[2024-02-05 13:48] VITALS: RESP 20
[2024-02-05 14:13] VITALS: BMI 21.7
[2024-02-05] MEDS: QUEtiapine FUMARATE 200 MG TABLET PO SCH (23:21)
[2024-02-06] MEDS ORDERED: INSULIN (NOVOLOG) ASPART 100 UNITS/ML 10ML VIAL ONE (07:59)
[2024-02-06] MEDS: PANTOPRAZOLE 40 MG TABLET PO SCH (09:06)
[2024-02-06 09:08] VITALS: TEMP 98
[2024-02-06 09:50] LABS: HEMATOCRIT 38.3 % (32.4-45.2); HEMOGLOBIN 12.8 GM/dL (10.7-15.3); MCH 32.3 pg (25.7-33.7); MCHC 33.4 g/dl (32.0-36.0); MEAN CELL VOLUME 96.6 fl (80-96); MEAN PLT VOLUME 10.7 fl (7.5-11.1); PLATELET COUNT 167 10^3/uL (134-434); RBC 3.97 M/mm3 (3.60-5.2); RDW 14.4 % (11.6-15.6); WHITE BLOOD COUNT 5.8 K/mm3 (4.0-10.0)
[2024-02-06 10:13] LABS: POTASSIUM 3.8 mmol/L (3.5-5.1)
[2024-02-06 10:31] LABS: BLOOD UREA NITROGEN 11.7 mg/dL (7-18); CALCIUM 9.1 mg/dL (8.5-10.1)
[2024-02-06 10:32] LABS: CREATININE 0.7 mg/dL (0.55-1.3)
[2024-02-06 10:33] LABS: BILIRUBIN,TOTAL 0.5 mg/dL (0.2-1); TOT PROT 6.6 g/dl (6.4-8.2)
[2024-02-06 10:42] LABS: ALBUMIN 3.5 g/dl (3.4-5.0)
[2024-02-06 10:54] VITALS: BP 122/99; PULSE 95
== END 2024-02-06 11:36 | disposition home or self-care (01) ==
LOC: JER 11:24 → JERBED 15:43 → J7W 02-04 09:31 → J8W 02-05 18:01
PROVIDERS: ADMIT Family Medicine; ATTEND Family Medicine
PROC: 3E033GC Introduction of Other Therapeutic Substance into Peripheral Vein, Percutaneous Approach (ICD-10-PCS; principal; 2024-02-03)
PROC: 3E023GC Introduction of Other Therapeutic Substance into Muscle, Percutaneous Approach (ICD-10-PCS; 2024-02-03)
PROC: 3E0337Z Introduction of Electrolytic and Water Balance Substance into Peripheral Vein, Percutaneous Approach (ICD-10-PCS; 2024-02-03)
DX: F12.988 Cannabis use, unspecified with other cannabis-induced disorder (principal); E78.5 Hyperlipidemia, unspecified; K27.9 Peptic ulcer, site unspecified, unspecified as acute or chronic, without hemorrhage or perforation; R10.9 Unspecified abdominal pain; R11.10 Vomiting, unspecified; I16.0 Hypertensive urgency; I25.10 Atherosclerotic heart disease of native coronary artery without angina pectoris; I11.0 Hypertensive heart disease with heart failure; E11.9 Type 2 diabetes mellitus without complications; I48.91 Unspecified atrial fibrillation; J45.909 Unspecified asthma, uncomplicated; G40.909 Epilepsy, unspecified, not intractable, without status epilepticus; G43.909 Migraine, unspecified, not intractable, without status migrainosus; K59.00 Constipation, unspecified; K92.9 Disease of digestive system, unspecified; G89.29 Other chronic pain; M19.90 Unspecified osteoarthritis, unspecified site; G62.9 Polyneuropathy, unspecified; R77.8 Other specified abnormalities of plasma proteins; Z90.49 Acquired absence of other specified parts of digestive tract; Z96.653 Presence of artificial knee joint, bilateral; Z87.891 Personal history of nicotine dependence; R63.4 Abnormal weight loss
CPT/HCPCS: 0241U-QW; 36415; 71045-TC-FY; 74160-TC; 74240-TC-FY; 80053; 80307; 81003; 82962; 83605; 83690; 83735; 84443; 84484; 85025; 85027; 86850; 86900; 86901; 87086; 93005; 93010; 99285-25; G0378; Q9967

== ENCOUNTER 2024-03-15 21:51 | Emergency (ER) | payer OTHER ==
[2024-03-15 22:06] VITALS: TEMP 98.8; BMI 21.9
[2024-03-15] MEDS ORDERED: ONDANSETRON 4 MG/2 ML VIAL ONE (22:52)
[2024-03-15] MEDS ORDERED: FAMOTIDINE 20 MG/50 ML IVPB 20 MG/50 ML MG IVPB ONE (22:52)
[2024-03-15] MEDS ORDERED: ACETAMINOPHEN INJECTION 100 ML IVPB ONE (22:52)
[2024-03-15 23:26] LABS: BASO % 0.8 % (0-2.0); HEMATOCRIT 39.8 % (32.4-45.2); HEMOGLOBIN 13.6 GM/dL (10.7-15.3); LYMPH % 12.7 % (8-40); MCHC 34.1 g/dl (32.0-36.0); MEAN CELL VOLUME 93.6 fl (80-96); MEAN PLT VOLUME 9.5 fl (7.5-11.1); MONO % 6.6 % (3.8-10.2); NEUT % 79.9 % (42.8-82.8); PLATELET COUNT 187 10^3/uL (134-434); RBC 4.25 M/mm3 (3.60-5.2); RDW 13.5 % (11.6-15.6); WHITE BLOOD COUNT 7.5 K/mm3 (4.0-10.0)
[2024-03-15 23:32] LABS: INR 0.95 (0.83-1.09); PROTHROMBIN TIME (PATIENT) 10.8 SEC (9.7-13.0)
[2024-03-15 23:34] LABS: ACTIVATED PTT 30.5 SECONDS (25.2-36.5)
[2024-03-15] MEDS: ACETAMINOPHEN 1000 MG/100 ML BAG IVPB ONE (23:37)
[2024-03-15] MEDS: FAMOTIDINE 20 MG/50 ML IVPB 20 MG/50 ML MG IVPB ONE (23:37)
[2024-03-15] MEDS: SODIUM CHLORIDE 1,000 ML IV STA (23:37)
[2024-03-15] MEDS: ONDANSETRON 4 MG/2 ML VIAL IVPUSH ONE (23:37)
[2024-03-15 23:51] LABS: POTASSIUM 3.2 mmol/L (3.5-5.1)
[2024-03-15 23:54] LABS: ALBUMIN 4.6 g/dl (3.4-5.0); BLOOD UREA NITROGEN 19.4 mg/dL (7-18)
[2024-03-15 23:57] LABS: CREATININE 0.8 mg/dL (0.55-1.3)
[2024-03-15 23:59] LABS: BILIRUBIN,TOTAL 0.6 mg/dL (0.2-1); TOT PROT 8.4 g/dl (6.4-8.2)
[2024-03-16] MEDS ORDERED: POTASSIUM CHLORIDE ORAL LIQUID 20 MEQ/15 ML ONE (00:52)
[2024-03-16] MEDS: POTASSIUM CHLORIDE ORAL LIQUID 20 MEQ/15 ML PO ONE (01:02)
[2024-03-16 02:28] LABS: PH,URINE 6.5 (5.0-8.0); URINE APPEARANCE CLEAR; URINE BILIRUBIN NEGATIVE (NEGATIVE); URINE COLOR YELLOW; URINE GLUCOSE (UA) NEGATIVE (NEGATIVE); URINE KETONE NEGATIVE (NEGATIVE); URINE LEUK ESTERASE NEGATIVE (NEGATIVE); URINE NITRITE NEGATIVE (NEGATIVE); URINE PROTEIN NEGATIVE (NEGATIVE); URINE UROBILINOGEN 0.2 mg/dL (0.2-1.0)
[2024-03-16] MEDS: morphine CARPU-JECT 2 MG/1 ML DISP.SYRIN IVPUSH ONE (02:49)
[2024-03-16 05:03] VITALS: BP 168/109; PULSE 96; RESP 19
== END 2024-03-16 06:06 | disposition home or self-care (01) ==
LOC: JER 21:51
PROC: 3E033GC Introduction of Other Therapeutic Substance into Peripheral Vein, Percutaneous Approach (ICD-10-PCS; principal; 2024-03-15)
PROC: 3E033NZ Introduction of Analgesics, Hypnotics, Sedatives into Peripheral Vein, Percutaneous Approach (ICD-10-PCS; 2024-03-15)
PROC: 3E033GC Introduction of Other Therapeutic Substance into Peripheral Vein, Percutaneous Approach (ICD-10-PCS; 2024-03-15)
PROC: 3E033NZ Introduction of Analgesics, Hypnotics, Sedatives into Peripheral Vein, Percutaneous Approach (ICD-10-PCS; 2024-03-16)
DX: R10.13 Epigastric pain (principal); R11.2 Nausea with vomiting, unspecified; R09.81 Nasal congestion; R68.83 Chills (without fever); R05.9 Cough, unspecified; R19.7 Diarrhea, unspecified; R06.02 Shortness of breath; R51.9 Headache, unspecified; R30.9 Painful micturition, unspecified; Z20.822 Contact with and (suspected) exposure to COVID-19
CPT/HCPCS: 0241U-QW; 36415; 71046-TC-FY; 76705-TC; 80053; 81003; 83605; 83690; 84484; 85025; 85610; 85730; 87086; 93005; 93010; 96365; 96375; 99285-25; J0131

== ENCOUNTER 2025-08-20 12:46 | Emergency (ER) | payer OTHER ==
[2025-08-20 12:54] VITALS: PULSE 67; RESP 20; TEMP 98.4; BMI 22.8
[2025-08-20] MEDS ORDERED: ACETAMINOPHEN 325 MG TABLET (FP) ONE (13:56)
[2025-08-20] MEDS ORDERED: CEPHALEXIN MONOHYDRATE 500 MG CAPSULE (UD) ONE (13:57)
[2025-08-20] MEDS ORDERED: LOSARTAN POTASSIUM 25 MG TABLET ONE (13:59)
[2025-08-20] MEDS: LOSARTAN POTASSIUM 25 MG TABLET PO ONE (14:04)
[2025-08-20] MEDS: ACETAMINOPHEN 500 MG TABLET (FP) PO ONE (14:04)
[2025-08-20] MEDS: CEPHALEXIN MONOHYDRATE 500 MG CAPSULE (UD) PO ONE (14:05)
[2025-08-20 15:12] VITALS: BP 179/95
== END 2025-08-20 16:56 | disposition home or self-care (01) ==
LOC: JER 12:46
DX: L72.0 Epidermal cyst (principal); I10 Essential (primary) hypertension
CPT/HCPCS: 36415; 99283-25